=== PATIENT | female | born 1945 | race Caucasian/White ===

== ENCOUNTER → 2017-08-07 13:20 | Outpatient (CLI) | payer MEDICARE, SELFPAY ==
--- NOTE | 2017-08-07 13:28 | MR_ITS ---
MR cervical spine wo con HISTORY: Neck pain with bilateral arm numbness ITS.REASON: NECK PAIN ORDERING PHYSICIAN: Matheus Boggs MD PATIENT AGE: 72 years COMPARISON: 09/08/2015 TECHNIQUE: Standard multiplanar multiecho sequences are performed without contrast. 3-D MIP and myelographic images are also rendered and reviewed FINDINGS: The craniocervical junction has an unremarkable appearance. There is normal alignment. C2-C3, C3-C4, and C4-C5 have an unremarkable appearance. There is minimal bulging disc at C5-C6 with very slight decrease in the disc space. The disc is slightly eccentric toward the left. There is mild narrowing of the canal. No cord impingement C6-C7: Minimal bulging disc. C7-T1: Unremarkable. IMPRESSION: 1. Mild degenerative disc disease at C5-C6 with minimal disc bulge at C5-C6 and C6-7. 2. Otherwise negative MRI of the cervical spine with no significant change from the previous exam. No disc herniation or neural impingement apparent
--- NOTE | 2017-08-07 13:28 | MR_ITS ---
MR lumbar spine wo con, MR 3-d myelogram/MRCP HISTORY: Low back pain with bilateral sciatica. Low back pain worsening the last month with pain on left side with bilateral leg tingling ITS.REASON: LOW BACK PAIN WITH BILATERAL SCIATICA ORDERING PHYSICIAN: Matheus Boggs MD PATIENT AGE: 72 years COMPARISON: 12/17/2016 TECHNIQUE: Standard multiplanar multiecho sequences are performed without contrast. 3-D MIP and myelographic images are also rendered and reviewed FINDINGS: There is normal alignment. The spinal cord ends at the T12-L1 level. T11-T12: Slight decrease in the disc height. T12-L1: Unremarkable. L1-L2: Mild degenerative disc disease with minimal bulging disc. L2-L3: Unremarkable. L3-L4: Unremarkable aside from a small Schmorl's node along the superior endplate of L4. L4-5: Very minimal bulging disc. L5-S1: Minimal bulging disc. There is mild facet hypertrophic change at L5-S1 Left renal cysts once again noted. IMPRESSION: 1. Minimal lumbar spondylosis. Please see above for detailed description at each level. 2. No disc herniation or canal stenosis with no significant change compared to the previous exam
== END ==
PROVIDERS: Family Provider Family Medicine; PCP Family Medicine; Visit Provider Family Medicine
DX: M54.2 Cervicalgia (principal); M54.42 Lumbago with sciatica, left side; M54.41 Lumbago with sciatica, right side; M51.36 Other intervertebral disc degeneration, lumbar region; M46.96 Unspecified inflammatory spondylopathy, lumbar region
CPT/HCPCS: 72141; 72148; 76376; A9502

== ENCOUNTER → 2017-09-04 13:03 | Outpatient (POV) | payer MEDICARE, OTHER, SELFPAY | PROVIDERS: Visit Provider Neurological Surgery | DX: Z00.00 Encounter for general adult medical examination without abnormal findings (principal) ==

== ENCOUNTER → 2017-09-18 11:48 | Outpatient (CLI) | payer MEDICARE, OTHER, SELFPAY ==
--- NOTE | 2017-09-18 11:57 | XR_ITS ---
XR foot RT min 3V HISTORY: Foot pain ITS.REASON: LEFT 2ND TOE PAIN, HAMMER TOE ORDERING PHYSICIAN: Mary Merino DPM PATIENT AGE: 72 years COMPARISON: None FINDINGS: No fracture or dislocation. No lytic or blastic change. There is normal mineralization.. The joint spaces are well-preserved. No significant degenerative/arthritic changes. No erosive changes evident. Mild flexion deformity involves the second toe. There is minimal medial subluxation of the distal phalanx of the third toe. Normal alignment otherwise. IMPRESSION: 1. Mild flexion deformity of the second toe. 2. Minimal medial displacement of the distal phalanx of the third toe
--- NOTE | 2017-09-18 11:58 | XR_ITS ---
XR foot LT min 3V HISTORY: Foot pain ITS.REASON: LEFT 2ND TOE PAIN, HAMMERTOE ORDERING PHYSICIAN: Mary Merino DPM PATIENT AGE: 72 years COMPARISON: None FINDINGS: Weightbearing views are performed. There is normal alignment. Mild hypertrophic changes are present dorsally at the midfoot. There is hammertoe deformity of the second toe. No fracture or dislocation. Small sclerotic focus involving the mid aspect of the calcaneus and may be due to small bone island. IMPRESSION: Hammertoe deformity of the second toe. Mild degenerative changes of the midfoot
== END ==
PROVIDERS: Visit Provider Podiatrist
DX: M20.42 Other hammer toe(s) (acquired), left foot (principal); M79.675 Pain in left toe(s)
CPT/HCPCS: 73630

== ENCOUNTER → 2017-09-30 09:34 | Outpatient (POV) | payer MEDICARE, SELFPAY ==
[2017-09-30 09:42] VITALS: BP 164/80; PULSE 62; RESP 20; O2SAT 99; BMI 33.4
--- NOTE | 2017-09-30 11:16 | HMH.PMCON ---
Assessment and Plan (1) Bursitis Current visit: Yes Status: Chronic Category: Medical Code(s): M71.9 - Bursopathy, unspecified (2) Sacroiliitis Current visit: Yes Status: Chronic Category: Medical Code(s): M46.1 - Sacroiliitis, not elsewhere classified - Assessment and plan all Dx Assessment and Plan for all problems:: We will start with a left SI joint injection along with a left greater trochanteric bursa injection. I believe that this would be very helpful for the patient given her pain pattern. I will follow-up with the patient after her injection if she does not get good relief with this we may begin looking at her back pathology. We will also write an order for a physical therapy evaluation and home stretching program. I believe that the patient would have better outcomes if she did this after her injection. Patient has tried physical therapy before with minimal relief. patient is unable to take anti-inflammatories due to allergy. This note was dictated using voice recognition software and may contain errors or omissions HPI - Data of Consult Consult date: 09/30/17 Requesting Physician: Yas Casiano APRN Primary Care Provider: Matheus Boggs MD Family Provider: Matheus Boggs MD - Consult Narrative Reason for consult: Left lower back pain radiating down her left hip and left leg History of present illness: Ms. Walker is a 72 year old female who presents today for a consult in regards to chronic pain in her left lower back radiating down her left hip and left leg. Patient states that it was gradual in onset and started 10-15 years ago. Patient states that sitting increases the pain while laying down decreases her pain. Patient has tried and failed physical therapy in the past patient is allergic to NSAIDs and is unable to take anti-inflammatories. Patient does take Tylenol to help relieve some of her pain. Patient rates her pain a 4 out of 10 today. Patient states she has numbness and tingling that go all the way to her left toes at times. Patient has had injections in her knees in the past for arthritis and has done very well with this. Patient is interested in interventional therapies. CC: Yas Casiano APRN [facility] History I have reviewed the patient's past medical history: Yes Medical History: Reports:: Asthma, Gastroesophageal Reflux Disease(GERD), Hypertension Denies:: Anxiety, Depression, Diabetes Mellitus Type 1, Diabetes Mellitus Type 2, Hyperlipidemia Other Medical History: Reports: Arthritis, Hypothyroidism, Sinus Problems Laterality Cases: Bilateral: Arthroscopy Knee Other Surgeries: Yes: Appendectomy, , Hernia Repair, Hysterectomy-Total, Sinus Surgery, Tubal Ligation - *Social History Educational Level: Completed High School Smoking Status: Never smoker Alcohol Intake: never Occupational Status: retired - Psychiatric History Expresses thoughts of harming self/others: None Suicide Plan Description: No Plan Pschychiatric History:: Denies:: Anxiety, Depression *Family Hx:: Cancer, Diabetes, Hyperlipidemia, Hypertension, Thyroid Disorder Review of Systems - Review of Systems ROS General: no recent weight change, no fever, no sleep disturbances Respiratory: no cough, no shortness of air, no recurring pulmonary infections Cardiovascular/Peripheral Vascular: No chest pain, No palpitations, no edema, no shortness of breath. Gastrointestinal: no incontinence, normal bowel movements reported Genitourinary: no incontinence Musculoskeletal: SI joint pain, low back pain, knee pain Psychiatric: normal mood/ affect Neurological: [denies weakness in extremities], [denies balance issues] Meds Home Medications Medication Instructions Recorded Confirmed Type acebutolol 200 mg capsule 200 mg PO 90 Days cap 09/18/17 History acetaminophen 500 mg tablet 500 mg PO Q4-6H PRN 09/18/17 History albuterol sulfate HFA 90 90 mcg INHALATION Q6H
--- NOTE | 2017-09-30 11:19 | P.CONS_ITS ---
Assessment and Plan (1) Bursitis Current visit: Yes Status: Chronic Category: Medical Code(s): M71.9 - Bursopathy, unspecified (2) Sacroiliitis Current visit: Yes Status: Chronic Category: Medical Code(s): M46.1 - Sacroiliitis, not elsewhere classified - Assessment and plan all Dx Assessment and Plan for all problems:: We will start with a left SI joint injection along with a left greater trochanteric bursa injection. I believe that this would be very helpful for the patient given her pain pattern. I will follow-up with the patient after her injection if she does not get good relief with this we may begin looking at her back pathology. We will also write an order for a physical therapy evaluation and home stretching program. I believe that the patient would have better outcomes if she did this after her injection. Patient has tried physical therapy before with minimal relief. patient is unable to take anti-inflammatories due to allergy. This note was dictated using voice recognition software and may contain errors or omissions HPI - Data of Consult Consult date: 09/30/17 Requesting Physician: Yas Casiano APRN Primary Care Provider: Matheus Boggs MD Family Provider: Matheus Boggs MD - Consult Narrative Reason for consult: Left lower back pain radiating down her left hip and left leg History of present illness: Ms. Walker is a 72 year old female who presents today for a consult in regards to chronic pain in her left lower back radiating down her left hip and left leg. Patient states that it was gradual in onset and started 10-15 years ago. Patient states that sitting increases the pain while laying down decreases her pain. Patient has tried and failed physical therapy in the past patient is allergic to NSAIDs and is unable to take anti-inflammatories. Patient does take Tylenol to help relieve some of her pain. Patient rates her pain a 4 out of 10 today. Patient states she has numbness and tingling that go all the way to her left toes at times. Patient has had injections in her knees in the past for arthritis and has done very well with this. Patient is interested in interventional therapies. CC: Yas Casiano APRN [facility] History I have reviewed the patient's past medical history: Yes Medical History: Reports:: Asthma, Gastroesophageal Reflux Disease(GERD), Hypertension Denies:: Anxiety, Depression, Diabetes Mellitus Type 1, Diabetes Mellitus Type 2, Hyperlipidemia Other Medical History: Reports: Arthritis, Hypothyroidism, Sinus Problems Laterality Cases: Bilateral: Arthroscopy Knee Other Surgeries: Yes: Appendectomy, , Hernia Repair, Hysterectomy-Total , Sinus Surgery, Tubal Ligation - *Social History Educational Level: Completed High School Smoking Status: Never smoker Alcohol Intake: never Occupational Status: retired - Psychiatric History Expresses thoughts of harming self/others: None Suicide Plan Description: No Plan Pschychiatric History:: Denies:: Anxiety, Depression *Family Hx:: Cancer, Diabetes, Hyperlipidemia, Hypertension, Thyroid Disorder Review of Systems - Review of Systems ROS General: no recent weight change, no fever, no sleep disturbances Respiratory: no cough, no shortness of air, no recurring pulmonary infections Cardiovascular/Peripheral Vascular: No chest pain, No palpitations, no edema, no shortness of breath. Gastrointestinal: no incontinence, normal bowel movements reported Genitourinary: no incontinence Musculoskeletal: SI joint pain, low back pa
== END ==
PROVIDERS: Family Provider Family Medicine; PCP Family Medicine; Visit Provider Clinical Nurse Specialist Family Health
DX: M71.9 Bursopathy, unspecified (principal); M46.1 Sacroiliitis, not elsewhere classified
CPT/HCPCS: 99202

== ENCOUNTER 2017-10-16 12:14 | Day surgery (SDC) | payer MEDICARE, SELFPAY ==
[2017-10-16 12:25] VITALS: BP 141/75; PULSE 64; RESP 18; TEMP 36.8; O2SAT 97; BMI 33.8
[2017-10-16 12:52] VITALS: BP 172/95; PULSE 88; RESP 18
[2017-10-16 12:53] VITALS: BP 186/86; PULSE 68; RESP 20
--- NOTE | 2017-10-16 12:56 | P.PCN_ITS ---
- Procedure Date: 10/16/17 Time: 12:54 Anesthesiologist:: Antonino Gonzalez MD Complications:: None Pre-procedure Diagnosis:: Sacroiliitis and trochanteric bursitis Post-procedure Diagnosis:: Same Indications for Procedure:: This patient is a pleasant 72-year-old white female who we are treating for left -sided hip pain. She is tender over left SI joint and left trochanteric bursa. She does have a positive Danyel's test. She has tried and failed physical therapy in the past. She is allergic to NSAIDs. She presents today for a left SI joint injection left trochanteric bursa injection under fluoroscopy. Procedure Details:: Left SI joint injection under fluoroscopy Informed consent was obtained and the risks and benefits of the procedure was going to the patient. Patient was taken to the procedure room. Patient was placed prone on the procedure table. The left hip was prepped using ChloraPrep. The skin and subcutaneous tissues were anesthetized using lidocaine. I placed a 22-gauge spinal needle into the inferior aspect of the left SI joint. Needle placement was confirmed with dye. After this we injected 5 mL bupivacaine 0.25% and Depo-Medrol 40 mg into the left SI joint. The patient tolerated the procedure well with no complication. Left trochanteric bursa injection under fluoroscopy Informed consent was obtained and the risk and benefits of the procedure was explained to the patient. The patient was taken to procedure room and placed prone on the procedure table. The left hip was prepped using ChloraPrep. The skin and subcutaneous tissues were anesthetized using lidocaine. I placed a 22- gauge spinal needle under fluoroscopic guidance and advanced until it contacted the left greater trochanter. Needle placement was confirmed with dye. After this we injected 5 mL bupivacaine 0.25% and Depo-Medrol 40 mg. Patient tolerated the procedure well with no complications. Plan and Disposition:: We will follow-up with her in 2 weeks. We will reevaluate her symptoms at that time.
[2017-10-16 13:08] VITALS: BP 153/71; PULSE 58; RESP 18; O2SAT 96
== END 2017-10-16 13:00 | disposition home or self-care (01) ==
LOC: SC.PAINP 12:16
PROVIDERS: Family Provider Family Medicine; PCP Family Medicine; Visit Provider Anesthesiology
DX: M46.1 Sacroiliitis, not elsewhere classified (principal); M70.62 Trochanteric bursitis, left hip
CPT/HCPCS: 20610; 27096; G0260; J1030; Q9966

== ENCOUNTER → 2017-11-11 10:52 | Outpatient (POV) | payer MEDICARE, SELFPAY ==
[2017-11-11 11:30] VITALS: BP 146/63; PULSE 54; RESP 18; TEMP 36.7; O2SAT 97; BMI 34.0
--- NOTE | 2017-11-11 12:25 | HMH.PAINSOAP ---
[facility] Pain Management SOAP Note Subjective:: Patient is a pleasant 72-year-old white female who presents today for follow-up after left SI and left trochanteric bursa injection. Patient states she has a von percent relief. Patient still has some pain however it she is doing much better and is much more functional. Patient is interested in working on her cervical neck pain. Patient does have a C5-C6 disc bulge. Patient is having radiating pain from her neck into bilateral arms. Rates her pain a 6 out of 10. Patient also is having carpal tunnel pain. Patient is interested in injective therapies and possibly neuromodulation in the future. ROS General: no recent weight change, no fever, no sleep disturbances Respiratory: no cough, no shortness of air, no recurring pulmonary infections Cardiovascular/Peripheral Vascular: No chest pain, No palpitations, no edema, no shortness of breath. Gastrointestinal: no incontinence, normal bowel movements reported Genitourinary: no incontinence Musculoskeletal: Neck pain, bilateral arm pain, low back pain, left SI pain, left hip pain Psychiatric: normal mood/ affect, Neurological: [denies weakness in extremities], [denies balance issues] Objective:: Physical Exam General: Alert and oriented x3, no acute distress, pleasant and cooperative, [on room air] Lungs: Resps E/U, Symmetrical chest expansion, Eyes: PERRL Musculoskeletal: Flexion and extension of cervical spine somewhat guarded secondary to pain, deep tendon reflexes normal, strength in upper and lower extremities [5/5], [abnormal gait noted] Neurological: speech clear, convention worker equal, no gross sensory deficits Assessment:: Degenerative disc disease of the cervical spine, cervical radiculopathy, sacroiliitis Plan:: We will schedule physical therapy for the patient. She will do this in [place]. Patient is going to physical therapy for neck and left SI pain. We will also send the patient to Dr. Patel for carpal tunnel evaluation. We will also schedule a C5-C6 cervical epidural steroid injection. Patient is unable to take anti-inflammatories. And she is allergic to most medications for pain. Patient did well on her last injection I believe that a cervical epidural may give her some benefit as well. I will follow-up with this patient after her injection. Patient also interested in possible neuromodulation. This note was dictated using voice recognition software and may contain errors or omissions
--- NOTE | 2017-11-11 12:31 | P.CONS_ITS ---
[facility] Pain Management SOAP Note Subjective:: Patient is a pleasant 72-year-old white female who presents today for follow-up after left SI and left trochanteric bursa injection. Patient states she has a von percent relief. Patient still has some pain however it she is doing much better and is much more functional. Patient is interested in working on her cervical neck pain. Patient does have a C5-C6 disc bulge. Patient is having radiating pain from her neck into bilateral arms. Rates her pain a 6 out of 10. Patient also is having carpal tunnel pain. Patient is interested in injective therapies and possibly neuromodulation in the future. ROS General: no recent weight change, no fever, no sleep disturbances Respiratory: no cough, no shortness of air, no recurring pulmonary infections Cardiovascular/Peripheral Vascular: No chest pain, No palpitations, no edema, no shortness of breath. Gastrointestinal: no incontinence, normal bowel movements reported Genitourinary: no incontinence Musculoskeletal: Neck pain, bilateral arm pain, low back pain, left SI pain, left hip pain Psychiatric: normal mood/ affect, Neurological: [denies weakness in extremities], [denies balance issues] Objective:: Physical Exam General: Alert and oriented x3, no acute distress, pleasant and cooperative, [ on room air] Lungs: Resps E/U, Symmetrical chest expansion, Eyes: PERRL Musculoskeletal: Flexion and extension of cervical spine somewhat guarded secondary to pain, deep tendon reflexes normal, strength in upper and lower extremities [5/5], [abnormal gait noted] Neurological: speech clear, audit clerk equal, no gross sensory deficits Assessment:: Degenerative disc disease of the cervical spine, cervical radiculopathy, sacroiliitis Plan:: We will schedule physical therapy for the patient. She will do this in [place]. Patient is going to physical therapy for neck and left SI pain. We will also send the patient to Dr. Ptael for carpal tunnel evaluation. We will also schedule a C5-C6 cervical epidural steroid injection. Patient is unable to take anti-inflammatories. And she is allergic to most medications for pain. Patient did well on her last injection I believe that a cervical epidural may give her some benefit as well. I will follow-up with this patient after her injection. Patient also interested in possible neuromodulation. This note was dictated using voice recognition software and may contain errors or omissions
== END ==
PROVIDERS: Family Provider Family Medicine; PCP Family Medicine; Visit Provider Clinical Nurse Specialist Family Health
DX: M46.1 Sacroiliitis, not elsewhere classified (principal); M54.12 Radiculopathy, cervical region
CPT/HCPCS: 99212

== ENCOUNTER → 2017-12-08 15:04 | Outpatient (POV) | payer MEDICARE, SELFPAY ==
[2017-12-08 15:22] VITALS: BP 126/94; PULSE 63; O2SAT 98; BMI 34.9
--- NOTE | 2017-12-08 16:34 | P.CONS_ITS ---
[facility] Pain Management SOAP Note Subjective:: Patient is a pleasant 72-year-old white female who presents today for follow- up. Patient was recently going to be scheduled for a C5 C7 cervical epidural steroid injection but since last visit she had an increase in her left SI and left trochanteric bursa pain. Patient rates her pain is 7 out of 10 today. Patient has had good relief with SI joint and bursa injections in the past. Patient is interested in repeating this. Patient's tried and failed physical therapy, anti-inflammatory medications, stretching therapies. ROS General: no recent weight change, no fever, no sleep disturbances Respiratory: no cough, no shortness of air, no recurring pulmonary infections Cardiovascular/Peripheral Vascular: No chest pain, No palpitations, no edema, no shortness of breath. Gastrointestinal: no incontinence, normal bowel movements reported Genitourinary: no incontinence Musculoskeletal: Left SI joint pain, left trochanteric bursa tenderness Psychiatric: normal mood/ affect Neurological: [denies weakness in extremities], [denies balance issues] Objective:: Physical Exam General: Alert and oriented x3, no acute distress, pleasant and cooperative, [ on room air] Lungs: Resps E/U, Symmetrical chest expansion, Eyes: PERRL Musculoskeletal: Flexion and extension of lumbar spine somewhat guarded secondary to pain, deep tendon reflexes normal, strength in upper and lower extremities [5/5], slightly antalgic gait noted, positive Danyel's test on the left side, extreme point tenderness over left SI joint and left greater trochanteric bursa Neurological: speech clear, gynecological assistant equal, no gross sensory deficits Assessment:: Sacroiliitis, bursitis Plan:: We will schedule a left SI joint injection along with a left greater trochanteric bursa injection. Patient has had good relief with this in the past. Patient is on anti-inflammatories. Patient has tried and failed medications, physical therapy. Patient not on any anticoagulation. I will follow-up with this patient after her injections. We will then concentrated cervical neck pain. This note was dictated using voice recognition software and may contain errors or omissions
== END ==
PROVIDERS: Family Provider Family Medicine; PCP Family Medicine; Visit Provider Clinical Nurse Specialist Family Health
DX: M70.62 Trochanteric bursitis, left hip (principal)
CPT/HCPCS: 99212

== ENCOUNTER → 2018-01-26 11:11 | Outpatient (POV) | payer MEDICARE, SELFPAY ==
[2018-01-26 11:26] VITALS: BP 158/69; PULSE 57; RESP 18; O2SAT 99; BMI 33.4
--- NOTE | 2018-01-26 12:00 | P.CONS_ITS ---
[facility] Pain Management SOAP Note Subjective:: Patient is a pleasant 72-year-old white female who presents today for follow-up after left SI joint injection and left trochanteric bursa injection. Patient states she is doing very well she rates her pain 80% relieved. Patient did have a flareup in her pain after she was moving potting soil. Patient is doing well overall. Patient does have some neck pain however she wants to wait until the fall to start discussing this. Patient has been is in the process of getting a neurostimulator. Patient would like to wait until he is finished with this process for her to return and be assessed for neck pain. Patient rates her pain a 4 out of 10 today. Mostly in her left hip. ROS General: no recent weight change, no fever, no sleep disturbances Respiratory: no cough, no shortness of air, no recurring pulmonary infections Cardiovascular/Peripheral Vascular: No chest pain, No palpitations, no edema, no shortness of breath. Gastrointestinal: no incontinence, normal bowel movements reported Genitourinary: no incontinence Musculoskeletal: Left hip pain, left SI joint pain Psychiatric: normal mood/ affect Neurological: [denies weakness in extremities], [denies balance issues] Objective:: Physical Exam General: Alert and oriented x3, no acute distress, pleasant and cooperative, [ on room air] Lungs: Resps E/U, Symmetrical chest expansion, Eyes: PERRL Musculoskeletal: Flexion and extension of lumbar spine somewhat guarded secondary to pain, deep tendon reflexes normal, strength in upper and lower extremities [5/5], antalgic gait noted Neurological: speech clear, acquisition consultant equal, no gross sensory deficits Assessment:: Sacroiliitis, trochanteric bursitis, neck pain Plan:: We will follow-up with this patient in 3 months and reassess her symptoms at that time. Patient wants to wait until fall to discuss her neck pain. Patient' s been instructed to call the office if she has any issues prior to next appointment. This note was dictated using voice recognition software and may contain errors or omissions
== END ==
PROVIDERS: Family Provider Family Medicine; PCP Family Medicine; Visit Provider Clinical Nurse Specialist Family Health
DX: M46.1 Sacroiliitis, not elsewhere classified (principal)
CPT/HCPCS: 99212

== ENCOUNTER → 2018-04-21 09:58 | Outpatient (POV) | payer MEDICARE, SELFPAY ==
[2018-04-21 10:35] VITALS: BP 155/62; PULSE 55; RESP 18; O2SAT 98; BMI 34.5
--- NOTE | 2018-04-21 11:00 | HMH.PAINSOAP ---
[facility] Pain Management SOAP Note Subjective:: Patient is a pleasant 72-year-old white female who presents today for follow-up. Patient was last seen after her left SI joint injection left greater trochanteric bursa injection. Patient had 80% relief of her symptoms for 3 months. Patient states that her pain is beginning to return after overdoing it in the garden. Patient is interested in having another of these injections given the efficacy the last one. Patient is continuing a home stretching program and is not on any blood thinners patient rates her pain a 6 out of 10 today. ROS General: no recent weight change, no fever, no sleep disturbances Respiratory: no cough, no shortness of air, no recurring pulmonary infections Cardiovascular/Peripheral Vascular: No chest pain, No palpitations, no edema, no shortness of breath. Gastrointestinal: no incontinence, normal bowel movements reported Genitourinary: no incontinence Musculoskeletal: Left hip pain, left joint pain Psychiatric: normal mood/ affect Neurological: [denies weakness in extremities], [denies balance issues] Objective:: Physical Exam General: Alert and oriented x3, no acute distress, pleasant and cooperative, [on room air] Lungs: Resps E/U, Symmetrical chest expansion, Eyes: PERRL Musculoskeletal: Flexion and extension of lumbar spine somewhat guarded secondary to pain, deep tendon reflexes normal, strength in upper and lower extremities [5/5], slightly antalgic gait noted, positive Danyel's test on the left side, extreme point tenderness over left greater trochanteric bursa Neurological: speech clear, mill roll rewinder equal, no gross sensory deficits Assessment:: Sacroiliitis, bursitis Plan:: We will schedule left SI joint injection and left greater trochanteric bursa injection. I will follow-up with the patient after her injection. This note was dictated using voice recognition software and may contain errors or omissions
--- NOTE | 2018-04-21 11:03 | P.CONS_ITS ---
[facility] Pain Management SOAP Note Subjective:: Patient is a pleasant 72-year-old white female who presents today for follow-up. Patient was last seen after her left SI joint injection left greater trochanteric bursa injection. Patient had 80% relief of her symptoms for 3 months. Patient states that her pain is beginning to return after overdoing it in the garden. Patient is interested in having another of these injections given the efficacy the last one. Patient is continuing a home stretching program and is not on any blood thinners patient rates her pain a 6 out of 10 today. ROS General: no recent weight change, no fever, no sleep disturbances Respiratory: no cough, no shortness of air, no recurring pulmonary infections Cardiovascular/Peripheral Vascular: No chest pain, No palpitations, no edema, no shortness of breath. Gastrointestinal: no incontinence, normal bowel movements reported Genitourinary: no incontinence Musculoskeletal: Left hip pain, left joint pain Psychiatric: normal mood/ affect Neurological: [denies weakness in extremities], [denies balance issues] Objective:: Physical Exam General: Alert and oriented x3, no acute distress, pleasant and cooperative, [on room air] Lungs: Resps E/U, Symmetrical chest expansion, Eyes: PERRL Musculoskeletal: Flexion and extension of lumbar spine somewhat guarded secondary to pain, deep tendon reflexes normal, strength in upper and lower extremities [5/5], slightly antalgic gait noted, positive Danyel's test on the left side, extreme point tenderness over left greater trochanteric bursa Neurological: speech clear, gas station manager equal, no gross sensory deficits Assessment:: Sacroiliitis, bursitis Plan:: We will schedule left SI joint injection and left greater trochanteric bursa injection. I will follow-up with the patient after her injection. This note was dictated using voice recognition software and may contain errors or omissions
== END ==
PROVIDERS: Family Provider Family Medicine; PCP Family Medicine; Visit Provider Clinical Nurse Specialist Family Health
DX: M46.1 Sacroiliitis, not elsewhere classified (principal); M71.9 Bursopathy, unspecified
CPT/HCPCS: 99213

== ENCOUNTER → 2018-05-26 09:05 | Outpatient (POV) | payer MEDICARE, SELFPAY ==
[2018-05-26 09:22] VITALS: BP 172/67; PULSE 72; RESP 18; O2SAT 98; BMI 34.0
--- NOTE | 2018-05-26 09:42 | HMH.PAINSOAP ---
[facility] Pain Management SOAP Note Subjective:: Patient is a pleasant 72-year-old white female who presents today for follow-up for left SI joint injection left greater trochanteric bursa injection. Patient states that it has alleviated her pain symptoms. Patient is doing well at this time. Patient would like to follow-up on an as-needed basis. ROS General: no recent weight change, no fever, no sleep disturbances Respiratory: no cough, no shortness of air, no recurring pulmonary infections Cardiovascular/Peripheral Vascular: No chest pain, No palpitations, no edema, no shortness of breath. Gastrointestinal: no incontinence, normal bowel movements reported Genitourinary: no incontinence Musculoskeletal: Left hip pain at times Psychiatric: normal mood/ affect Neurological: [denies weakness in extremities], [denies balance issues] Objective:: Physical Exam General: Alert and oriented x3, no acute distress, pleasant and cooperative, [on room air] Lungs: Resps E/U, Symmetrical chest expansion, Eyes: PERRL Musculoskeletal: Flexion and extension of lumbar spine somewhat guarded secondary to pain, deep tendon reflexes normal, strength in upper and lower extremities [5/5], slightly antalgic gait noted Neurological: speech clear, chief steward/stewardess equal, no gross sensory deficits Assessment:: Sacroiliitis, trochanteric bursitis Plan:: We will follow-up with her on an as-needed basis. Patient's been encouraged to call the office if she has any issues. This note was dictated using voice recognition software and may contain errors or omissions
== END ==
PROVIDERS: PCP Family Medicine; Visit Provider Clinical Nurse Specialist Family Health
DX: M46.1 Sacroiliitis, not elsewhere classified (principal); M70.60 Trochanteric bursitis, unspecified hip
CPT/HCPCS: 99213

== ENCOUNTER → 2018-08-03 16:59 | Outpatient (CLI) | payer MEDICARE, SELFPAY | PROVIDERS: Visit Provider Podiatrist | DX: B35.1 Tinea unguium (principal) | CPT/HCPCS: 87102; 87206; 87220 ==

== ENCOUNTER → 2018-08-25 09:44 | Outpatient (POV) | payer MEDICARE, SELFPAY ==
[2018-08-25 10:07] VITALS: BP 153/59; PULSE 55; RESP 18; O2SAT 99; BMI 33.6
--- NOTE | 2018-08-25 11:25 | HMH.PAINSOAP ---
[facility] Pain Management SOAP Note Subjective:: Patient is a pleasant 73-year-old white female who presents today for follow-up. Patient has been receiving left SI joint injections for quite some time and has been doing well with them and being much more functional however her SI joint pain has returned today. Patient would like to move forward with another injection. Patient also does not have any recent lumbar imaging I do believe it would be beneficial to have an MRI to determine any additional pathology. Patient rates her pain a 6 out of 10 today. ROS General: no recent weight change, no fever, no sleep disturbances Respiratory: no cough, no shortness of air, no recurring pulmonary infections Cardiovascular/Peripheral Vascular: No chest pain, No palpitations, no edema, no shortness of breath. Gastrointestinal: no incontinence, normal bowel movements reported Genitourinary: no incontinence Musculoskeletal: Back pain, left SI joint pain Psychiatric: normal mood/ affect Neurological: [denies weakness in extremities], [denies balance issues] Objective:: Physical Exam General: Alert and oriented x3, no acute distress, pleasant and cooperative, [on room air] Lungs: Resps E/U, Symmetrical chest expansion, Eyes: PERRL Musculoskeletal: Flexion and extension of lumbar spine somewhat guarded secondary to pain, deep tendon reflexes normal, strength in upper and lower extremities [5/5], [abnormal gait noted] positive Judson's test on the left side, positive [place]'s test on the left side, positive SI joint compression test. Neurological: speech clear, supervisor drilling and shooting equal, no gross sensory deficits Assessment:: Sacroiliitis, back pain Plan:: We will send the patient for an updated MRI. We will also schedule her for left SI joint injection given the efficacy of this in the past. We will also start her on tramadol 50 mg [address] Gonzalez has reviewed this note and agrees with this plan of care. This note was dictated using voice recognition software and may contain errors or omissions
--- NOTE | 2018-08-25 11:28 | P.CONS_ITS ---
[facility] Pain Management SOAP Note Subjective:: Patient is a pleasant 73-year-old white female who presents today for follow-up. Patient has been receiving left SI joint injections for quite some time and has been doing well with them and being much more functional however her SI joint pain has returned today. Patient would like to move forward with another injection. Patient also does not have any recent lumbar imaging I do believe it would be beneficial to have an MRI to determine any additional pathology. Patient rates her pain a 6 out of 10 today. ROS General: no recent weight change, no fever, no sleep disturbances Respiratory: no cough, no shortness of air, no recurring pulmonary infections Cardiovascular/Peripheral Vascular: No chest pain, No palpitations, no edema, no shortness of breath. Gastrointestinal: no incontinence, normal bowel movements reported Genitourinary: no incontinence Musculoskeletal: Back pain, left SI joint pain Psychiatric: normal mood/ affect Neurological: [denies weakness in extremities], [denies balance issues] Objective:: Physical Exam General: Alert and oriented x3, no acute distress, pleasant and cooperative, [on room air] Lungs: Resps E/U, Symmetrical chest expansion, Eyes: PERRL Musculoskeletal: Flexion and extension of lumbar spine somewhat guarded secondary to pain, deep tendon reflexes normal, strength in upper and lower extremities [5/5], [abnormal gait noted] positive Judson's test on the left side, positive [place]'s test on the left side, positive SI joint compression test. Neurological: speech clear, talent management manager equal, no gross sensory deficits Assessment:: Sacroiliitis, back pain Plan:: We will send the patient for an updated MRI. We will also schedule her for left SI joint injection given the efficacy of this in the past. We will also start her on tramadol 50 mg [address] Gonzalez has reviewed this note and agrees with this plan of care. This note was dictated using voice recognition software and may contain errors or omissions
== END ==
PROVIDERS: PCP Family Medicine; Visit Provider Clinical Nurse Specialist Family Health
DX: M46.1 Sacroiliitis, not elsewhere classified (principal); M54.9 Dorsalgia, unspecified
CPT/HCPCS: 99213

== ENCOUNTER → 2018-08-27 15:05 | Outpatient (CLI) | payer MEDICARE, SELFPAY ==
--- NOTE | 2018-08-27 15:08 | MR_ITS ---
MR lumbar spine wo con, MR 3-d myelogram/MRCP HISTORY: Having shots in back. LT sided LBP. Intermittent LT leg pain, numbness, and tingling X YRS. No HX Back surgeries. ITS.REASON: WORSENING BACK PAIN ORDERING PHYSICIAN: Yas Casiano PATIENT AGE: 73 years Comparison: MRI 08-07-17 TECHNIQUE: Standard multiplanar multiecho sequences are performed without contrast. 3-D MIP and myelographic images are also rendered and reviewed FINDINGS: There is normal alignment. Spinal cord ends at the T12-L1 level. L1-L2: Mild degenerative disc disease. L2-L3, L3-L4, and L4-5 unremarkable appearance. Small Schmorl's node along the superior endplate of L4 L5-S1: Minimal bulging disc along with mild facet hypertrophic change. No disc herniation or canal stenosis. Incidental note made of multiple left parapelvic renal cysts IMPRESSION: Mild degenerative changes. Overall no significant change from 08/07/2017. No disc herniation or canal stenosis
== END ==
PROVIDERS: PCP Family Medicine; Visit Provider Clinical Nurse Specialist Family Health
DX: M54.5 Low back pain (principal)
CPT/HCPCS: 72148; 76376

== ENCOUNTER → 2018-09-08 11:35 | Outpatient (POV) | payer MEDICARE, SELFPAY ==
[2018-09-08 12:23] VITALS: BP 111/69; PULSE 56; RESP 18; O2SAT 98; BMI 33.6
--- NOTE | 2018-09-08 12:28 | P.CONS_ITS ---
[facility] Pain Management SOAP Note Subjective:: Is a pleasant 73-year-old white female who presents today for follow-up after SI joint injections. She is doing very well at this time she has had a recent MRI which was mild in nature. Patient stating otherwise she is doing well she rates her pain a 4 out of 10. She would like to follow-up as needed ROS General: no recent weight change, no fever, no sleep disturbances Respiratory: no cough, no shortness of air, no recurring pulmonary infections Cardiovascular/Peripheral Vascular: No chest pain, No palpitations, no edema, no shortness of breath. Gastrointestinal: no incontinence, normal bowel movements reported Genitourinary: no incontinence Musculoskeletal: Back pain, SI joint pain Psychiatric: normal mood/ affect Neurological: [denies weakness in extremities], [denies balance issues] Objective:: Physical Exam General: Alert and oriented x3, no acute distress, pleasant and cooperative, [on room air] Lungs: Resps E/U, Symmetrical chest expansion, Eyes: PERRL Musculoskeletal: Flexion and extension of lumbar spine somewhat guarded secondary to pain, deep tendon reflexes normal, strength in upper and lower extremities [5/5], slightly antalgic gait noted Neurological: speech clear, temporary administrative assistant equal, no gross sensory deficits Assessment:: Degenerative disc disease lumbar spine, sacroiliitis Plan:: We will follow-up with the patient on an as-needed basis she is can call our office when she is in need of an injection Dr. Gonzalez has reviewed this note and agrees with this plan of care. This note was dictated using voice recognition software and may contain errors or omissions
== END ==
PROVIDERS: PCP Family Medicine; Visit Provider Clinical Nurse Specialist Family Health
DX: M51.36 Other intervertebral disc degeneration, lumbar region (principal); M46.1 Sacroiliitis, not elsewhere classified
CPT/HCPCS: 99213

== ENCOUNTER → 2019-02-02 09:32 | Outpatient (CLI) | payer MEDICARE, SELFPAY ==
[2019-02-02 10:24] LABS: Basophils % 0.3 % (0.1-2.0); Eosinophils # 0.1 K/mm3 (0.0-0.4); Eosinophils % 1.9 % (0.1-12.0); Hemoglobin 12.8 g/dL (12.2-16.2); Lymphocytes # 1.5 K/mm3 (0.7-4.5); Lymphocytes % 25.1 % (10-50); Mean Corpuscular HGB Conc 31.2 g/dL (31.8-35.4); Mean Corpuscular Hemoglobin 28.2 pg (27.0-31.2); Mean Corpuscular Volume 90.4 fl (81-99); Mean Platelet Volume 7.3 fl (7.4-10.4); Monocytes # 0.4 K/mm3 (0.1-1.0); Monocytes % 7.2 % (1.7-9.3); Neutrophils # 3.9 K/mm3 (1.8-7.8); Neutrophils % 65.5 % (37.0-80.0); Platelet Count 224 K/mm3 (142-424); Red Blood Count 4.54 M/mm3 (4.20-5.40); White Blood Count 5.9 K/mm3 (4.8-10.8)
[2019-02-02 12:36] LABS: Ferritin 266 ng/mL (8-388); Free T4 (Free Thyroxine) 1.32 ng/dl (0.76-1.46); Thyroid Stimulating Hormone 0.21 uIU/ml (0.358-3.740)
[2019-02-03 08:14] LABS: Iron 119 ug/dL (27-139); UIBC 202 ug/dL (118-369)
[2019-02-04 20:03] LABS: Triiodothyronine (T3) Total 87 ng/dL (71-180)
[2019-02-04 20:04] LABS: Iron Saturation 37 % (15-55); Vitamin B12 365 pg/mL (232-1245); Vitamin D 25 Hydroxy 35.6 ng/mL (30.0-100.0)
[2019-02-05 10:31] LABS: Triiodothyronine (T3) Reverse 28.8 ng/dL (9.2-24.1)
== END ==
PROVIDERS: Visit Provider Internal Medicine Endocrinology, Diabetes & Metabolism
DX: D53.9 Nutritional anemia, unspecified (principal); D50.0 Iron deficiency anemia secondary to blood loss (chronic); E05.90 Thyrotoxicosis, unspecified without thyrotoxic crisis or storm; D51.0 Vitamin B12 deficiency anemia due to intrinsic factor deficiency; E55.9 Vitamin D deficiency, unspecified; E27.0 Other adrenocortical overactivity
CPT/HCPCS: 36415; 82533; 82607; 82652; 82728; 83540; 83550; 84439; 84443; 84480; 84482; 85025

== ENCOUNTER → 2019-08-12 09:56 | Outpatient (CLI) | payer MEDICARE, SELFPAY ==
[2019-08-12 10:41] LABS: Basophils % 0.6 % (0.1-2.0); Eosinophils # 0.1 K/mm3 (0.0-0.4); Eosinophils % 2.8 % (0.1-12.0); Hemoglobin 12.9 g/dL (12.2-16.2); Lymphocytes # 1.5 K/mm3 (0.7-4.5); Lymphocytes % 30.2 % (10-50); Mean Corpuscular Hemoglobin 30.5 pg (27.0-31.2); Mean Corpuscular Volume 92.2 fl (81-99); Monocytes # 0.4 K/mm3 (0.1-1.0); Neutrophils # 2.8 K/mm3 (1.8-7.8); Neutrophils % 58.4 % (37.0-80.0); Platelet Count 297 K/mm3 (142-424); Red Blood Count 4.22 M/mm3 (4.20-5.40); Red Cell Distribution Width 12.9 % (11.5-17.5); White Blood Count 4.9 K/mm3 (4.8-10.8)
[2019-08-12 10:49] LABS: Hemoglobin A1C 6.3 % (0.0-7.0)
[2019-08-12 11:11] LABS: Cholesterol 200 mg/dL (140-200); Free T4 (Free Thyroxine) 1.35 ng/dl (0.76-1.46); HDL Cholesterol 48 mg/dL (29-89); Thyroid Stimulating Hormone 0.04 uIU/ml (0.358-3.740); Triglycerides 83 mg/dL (30-200)
[2019-08-14 09:27] LABS: Triiodothyronine (T3) Total 111 ng/dL (71-180); Vitamin B12 403 pg/mL (232-1245); Vitamin D 25 Hydroxy 32.5 ng/mL (30.0-100.0)
[2019-08-18 10:44] LABS: Triiodothyronine (T3) Reverse 21.4 ng/dL (9.2-24.1)
== END ==
PROVIDERS: Visit Provider Internal Medicine Endocrinology, Diabetes & Metabolism
DX: E78.5 Hyperlipidemia, unspecified (principal); E27.0 Other adrenocortical overactivity; E05.90 Thyrotoxicosis, unspecified without thyrotoxic crisis or storm; E89.0 Postprocedural hypothyroidism; D51.0 Vitamin B12 deficiency anemia due to intrinsic factor deficiency; D53.9 Nutritional anemia, unspecified; D50.0 Iron deficiency anemia secondary to blood loss (chronic); E11.65 Type 2 diabetes mellitus with hyperglycemia; E55.9 Vitamin D deficiency, unspecified
CPT/HCPCS: 36415; 82465; 82533; 82607; 82652; 83036; 83718; 83722; 84439; 84443; 84478; 84480; 84482; 85025

== ENCOUNTER → 2019-12-02 12:41 | Outpatient (CLI) | payer MEDICARE, SELFPAY ==
--- NOTE | 2019-12-02 12:45 | MM_ITS ---
PROCEDURE: MM DIG SCREENING MAMM BI W/CAD Digital Breast Tomosynthesis Included CLINICAL INDICATION: SCREENING There is no personal or family history of breast cancer. COMPARISON: DMDXUR DIG MAMM-DX UNI-RT from 11/18/2014 DMSB DIG MAMM-SCREEN DORA from 05/22/2015 DMSB DIG MAMM-SCREEN DORA W/CAD from 01/16/2017 TECHNIQUE: Standard CC and MLO images and 3D Tomosynthesis was obtained. R2 CAD reviewed. FINDINGS: Scattered fibroglandular densities are seen throughout both breasts. There are scattered benign-appearing calcifications in each breast some of which appear to be secondary to secretory disease. There is a nodular density upper-outer quadrant left breast near the axillary tail likely a low-lying node. There is no new or suspicious lesion r either breast and no suspicious microcalcifications. IMPRESSION: Fibrofatty parenchyma with no suspicious lesions seen BI-RAD Category: 2 Benign Finding(s) FOLLOW-UP: 1YR 1 Year Follow-up (A letter has been sent to the patient regarding results of the study.) Dictated by: Dr. Wes Shell MD 12/04/2019 20:[address] Wes Shell MD in [place] 12/04/2019 20:25
== END ==
PROVIDERS: PCP Family Medicine; Visit Provider Family Medicine
DX: Z12.31 Encounter for screening mammogram for malignant neoplasm of breast (principal)
CPT/HCPCS: 77063; 77067

== ENCOUNTER → 2020-01-06 09:49 | Outpatient (CLI) | payer MEDICARE, SELFPAY ==
--- NOTE | 2020-01-06 09:52 | FL_ITS ---
PROCEDURE: FL UPPER GI W AIR CLINICAL INDICATION: ESOPHAGEAL DYSPHAGIA Difficulty swallowing, dysphagia COMPARISON: No exams were available for comparison TECHNIQUE: FLUOROSCOPY TIME : 1 minutes and 20 seconds FINDINGS: The esophagus, stomach, and duodenum have an unremarkable appearance.There is a small sliding hiatal hernia. No constricting lesions are evident. There has been a prior cholecystectomy no ulcer or mass evident. No mucosal abnormalities apparent. There is normal peristalsis. The duodenal C-loop is nondisplaced. IMPRESSION: Small sliding hiatal hernia otherwise negative upper GI Dictated by: Ramakrishna Middleton MD 01/06/2020 16:26 Electronically signed by Ramakrishna Middleton MD in [place] 01/06/2020 16:26
== END ==
PROVIDERS: PCP Family Medicine; Visit Provider Family Medicine
DX: R13.10 Dysphagia, unspecified (principal)
CPT/HCPCS: 74246

== ENCOUNTER → 2020-01-21 10:22 | Outpatient (CLI) | payer MEDICARE, SELFPAY ==
[2020-01-21 13:25] LABS: Coronavirus 19 IgG Antibody Negative (Negative); Coronavirus 19 IgM Antibody Negative (Negative)
== END ==
PROVIDERS: Visit Provider Internal Medicine Gastroenterology
DX: Z01.818 Encounter for other preprocedural examination (principal)
CPT/HCPCS: 36415; 86328

== ENCOUNTER 2020-01-24 08:36 | Day surgery (SDC) | payer MEDICARE, SELFPAY ==
[2020-01-18 10:10] VITALS: BMI 32.5
[2020-01-24] VITALS (7 sets, daily range): BP systolic 108–133; BP diastolic 61–80; PULSE 53–60; RESP 16–18; TEMP 36.2–36.7; O2SAT 95–100
--- NOTE | 2020-01-24 09:21 | P.PN_ITS ---
[facility] Anesthesia Checklist - Patient Identification Patient Identification: Arm Band - Structural Data Admitted From: Home Planned Operative Procedure/s: egd Consent for Planned Operative Procedure(s) Verified: Yes Verified Documents: Surgical Consent, History and Physical - NPO Status Verified Time NPO: 00:00 - Additional verifications Anesthesia Reactions: No Hx Blood Transfusions: No Blood Transfusion Reaction: No - Airway Assessment C-Spine Mobility Assessed: Yes (mp2) TMJ Mobility Assessed: Yes Dentition: Good Dentition - Neurological Assessment Level of Consciousness: Awake, Alert - Anesthesia Plan Anesthesia Risk discussed: Yes Anesthesia Plan: Verified ASA Class: III Anesthesia Type: MAC [facility] History I have reviewed the patient's past medical history: Yes Medical History: Reports:: Asthma, Gastroesophageal Reflux Disease(GERD), Hyperlipidemia, Hypertension, Urinary Tract Infection Denies:: Anxiety, Cancer, Depression, Diabetes Mellitus Type 1, Diabetes Mellitus Type 2, Internal Pacemaker, MRSA, Seizures *Have you ever received a pneumonia vaccine?: No *Have you received a flu vaccine this season?: Yes Other Medical History: Reports: Arthritis, Hypothyroidism, Sinus Problems, Thyroid Disease. Denies: Blood Transfusion Reaction Anesthesia experience/problems:: nac Laterality Cases: Bilateral: Arthroscopy Knee Other Surgeries: Yes: Appendectomy, , Hernia Repair, Hysterectomy- Total, Sinus Surgery, Tubal Ligation. No: Pacemaker Amputation: No Fractures: No - *Social History Smoking Status: Never smoker Alcohol Intake: never Alcohol Intake Frequency:: other Substance Use Type: denies use *Occupational Status:: retired Housing: house Household Members: spouse *Travel in the last 8 weeks: None - Psychiatric History Pschychiatric History:: Denies:: Anxiety, Depression Family Hx:: Cancer, Diabetes, Hyperlipidemia, Hypertension, Thyroid Disorder
--- NOTE | 2020-01-24 10:07 | P.PCN_ITS ---
[facility] Procedure Note Procedure Note:: Upper Endoscopy Procedure Report: Esophagogastroduodenoscopy with cold biopsies and TTS balloon dilation Endoscopost: Laron Lucio II, MD Referring Physician: Matheus oBggs MD Date of Procedure: January 24, 2020 Equipment: Olympus GIF 180 standard upper endoscope Sedation: MAC sedation Indications: Mrs. Walker is a 74-year-old female who reports some choking and dysphagia for approximately 1 year. She was eating tuna last week and developed coughing and was unable to get this up. The patient does have some intermittent painful swallowing/odynophagia. She has noted some belching over the last week. She has had heartburn since starting meloxicam last year. She is due for knee surgery on January 30 and stop the meloxicam. She does notice some globus sensation. She has a long history of IBS with diarrhea. The patient did have an upper GI series on January 06, 2020 showing a very small sliding hiatal hernia but was otherwise normal. She does state that she had an upper endoscopy many years ago. Procedure: Prior to the procedure, a history and physical exam was performed, and patient's medications and allergies were reviewed. The risks, benefits and alternatives of the sedation and procedure were discussed with the patient. All questions were answered and informed consent was obtained. The patient was brought to the procedure room. Patient identification and proposed procedure were verified by the physician and the nurse. The patient was placed in a left lateral decubitus position and the scope was passed under direct vision. Throughout the procedure, the patient's blood pressure, pulse, and oxygen saturations were monitored continuously. The upper GI endoscopy was accomplished without difficulty. The patient tolerated the procedure well. Findings: The scope was passed directly into the upper esophagus and advanced to the third portion of the duodenum. The post bulbar duodenum and duodenal bulb were normal with normal mucosa and conniventes. Cold biopsies were taken from the duodenum to rule out celiac disease (because of her chronic IBS diarrhea). The scope was withdrawn through a normal duodenal bulb and pylorus into the stomach. There was bile reflux with linear reactive gastropathy of the antrum. The remainder of the antrum, body and fundus of the stomach were grossly normal. Upon retroflexion there was a very small 1 to 2 cm sliding hiatal hernia. 2 biopsies were taken in the antrum and along the lesser curvature for histology to rule out gastritis and/or H pylori. The scope was then withdrawn into the esophagus. There was no evidence of reflux esophagitis or Kimble's. There was no Schatzki's ring. There were tertiary contractions and evidence of moderate esophageal dysmotility. The entire esophagus was dilated to 60 Swiss/20 mm with a TTS hydrostatic balloon. There was some resistance at the cricopharyngeus (cricopharyngeal spasm). The remainder of the esophageal mucosa was normal. Impression: 1. Cricopharyngeal spasm status post dilation to 20 mm 2. Nonerosive GERD with moderate esophageal dysmotility and very small 1 to 2 cm hiatal hernia 3. Bile reflux with mild linear reactive gastropathy Plan: I will follow-up the biopsies. I do feel that the patient will benefit from dietary measures and additional treatment (fiber regimen) and possibly promotility therapy for functional GERD. I will discuss the findings with patient and family.
== END 2020-01-24 11:09 | disposition home or self-care (01) ==
LOC: OUTP 08:38
PROVIDERS: PCP Family Medicine; Visit Provider Internal Medicine Gastroenterology
PROC: 0DJ08ZZ Inspection of Upper Intestinal Tract, Via Natural or Artificial Opening Endoscopic (ICD-10-PCS; CPT 43235; principal; 2020-01-24 10:00)
DX: J39.2 Other diseases of pharynx (principal); K22.2 Esophageal obstruction; K44.9 Diaphragmatic hernia without obstruction or gangrene; K21.9 Gastro-esophageal reflux disease without esophagitis; K31.9 Disease of stomach and duodenum, unspecified; K58.0 Irritable bowel syndrome with diarrhea; E78.5 Hyperlipidemia, unspecified; I10 Essential (primary) hypertension; F41.9 Anxiety disorder, unspecified; E03.9 Hypothyroidism, unspecified; J45.909 Unspecified asthma, uncomplicated; M19.90 Unspecified osteoarthritis, unspecified site
CPT/HCPCS: 43239; 43249; 88305; C1726

== ENCOUNTER → 2020-05-11 15:19 | Outpatient (CLI) | payer MEDICARE, SELFPAY | PROVIDERS: Visit Provider Urology | DX: N39.0 Urinary tract infection, site not specified (principal) | CPT/HCPCS: 87086; 87088; 87186 ==

== ENCOUNTER → 2020-05-17 14:39 | Outpatient (CLI) | payer MEDICARE, SELFPAY ==
--- NOTE | 2020-05-17 14:39 | CT_ITS ---
PROCEDURE: CT ABDOMEN PELVIS WO CON CLINICAL INDICATION: recurrent uti r/o kidney stone LLQ pain prior 04/12/13 COMPARISON: CT ABDPELW/O CT ABD PELVIS W/O CONTRAST from 04/12/2013 TECHNIQUE: Axial images obtained with sagittal and coronal reformats. All CT scans at the facility use one or more dose reduction, viz: automated exposure control, ma/kV adjustment per patient size (including targeted exams where dose is matched to indication, i.e. head), or iterative reconstruction technique. FINDINGS: LOWER THORAX: No acute finding ABDOMEN & PELVIS: The liver, spleen, adrenal glands, and pancreas have an unremarkable unenhanced appearance. There is a 2.8 by 2 cm isodense the projecting off the posterior aspect of the left kidney consistent with a renal cyst which is increased in size previously measuring 1.4 cm. There is a circular area of calcification in the right renal hilum and may be due to small renal artery aneurysm at [address] angiogram may confirm. No renal or ureteral calculi. No hydronephrosis. Prior cholecystectomy and appendectomy. No intestinal obstruction or free air. Diverticulosis involves the descending colon and sigmoid colon. Prior hysterectomy. 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 There is a small amount of air within the urinary bladder which could be due to recent catheterization versus gas-forming infection. IMPRESSION: 1. 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 CT angiogram of the renal arteries may confirm. This has developed since the previous exam. 2. Enlarging left renal cyst. 3. Colonic diverticulosis without diverticulitis. 4. Small focus of air within the urinary bladder. This could be due to recent catheterization or gas-forming infection the 5. No renal or ureteral calculi. Dictated by: Ramakrishna Middleton MD 05/18/2020 07:37 Ramakrishna Middleton MD in [place] 05/18/2020 07:37
== END ==
PROVIDERS: PCP Family Medicine; Visit Provider Urology
DX: N39.0 Urinary tract infection, site not specified (principal)
CPT/HCPCS: 74176

== ENCOUNTER → 2020-07-15 09:40 | Outpatient (CLI) | payer MEDICARE, SELFPAY ==
[2020-07-15 10:44] LABS: Coronavirus 19 IgG Antibody Negative (Negative); Coronavirus 19 IgM Antibody Negative (Negative)
== END ==
PROVIDERS: Visit Provider Urology
DX: N39.0 Urinary tract infection, site not specified (principal); Z01.818 Encounter for other preprocedural examination; Z03.818 Encounter for observation for suspected exposure to other biological agents ruled out
CPT/HCPCS: 36415; 86328

== ENCOUNTER 2020-07-17 08:39 | Day surgery (SDC) | payer MEDICARE, SELFPAY ==
[2020-07-11 08:39] VITALS: BMI 32.1
[2020-07-17 08:59] VITALS: BP 172/68; PULSE 65; RESP 18; TEMP 36.3; O2SAT 98
--- NOTE | 2020-07-17 10:22 | HMH.ANESCL ---
[facility] Anesthesia Checklist - Patient Identification Patient Identification: Arm Band - Structural Data Admitted From: Home Planned Operative Procedure/s: Cystoscopy with Urethral Dilation Consent for Planned Operative Procedure(s) Verified: Yes Verified Documents: Surgical Consent, History and Physical - NPO Status Verified Time NPO: 00:00 - Additional verifications Anesthesia Reactions: No Hx Blood Transfusions: No Blood Transfusion Reaction: No - Airway Assessment C-Spine Mobility Assessed: Yes (mp2) TMJ Mobility Assessed: Yes Dentition: Good Dentition - Neurological Assessment Level of Consciousness: Awake, Alert - Anesthesia Plan Anesthesia Risk discussed: Yes Anesthesia Plan: Verified ASA Class: II Anesthesia Type: MAC [facility] History I have reviewed the patient's past medical history: Yes Medical History: Reports:: Asthma, Gastroesophageal Reflux Disease(GERD), Hyperlipidemia, Hypertension, Urinary Tract Infection Denies:: Anxiety, Cancer, Depression, Diabetes Mellitus Type 1, Diabetes Mellitus Type 2, Internal Pacemaker, MRSA, Seizures *Have you ever received a pneumonia vaccine?: No *Have you received a flu vaccine this season?: Yes Other Medical History: Reports: Arthritis, Hypothyroidism, Sinus Problems, Thyroid Disease. Denies: Blood Transfusion Reaction Anesthesia experience/problems:: nac Laterality Cases: Right: Total Knee Replacement, Bilateral: Arthroscopy Knee Other Surgeries: Yes: Appendectomy, Cholecystectomy, , Hernia Repair, Hysterectomy-Total, Sinus Surgery, Tubal Ligation. No: Pacemaker Amputation: No Fractures: No - *Social History Last grade of school completed: High school graduate Smoking Status: Never smoker Alcohol Intake: never Alcohol Intake Frequency:: other Substance Use Type: denies use *Occupational Status:: retired Housing: house Household Members: spouse *Travel in the last 8 weeks: None - Psychiatric History Pschychiatric History:: Denies:: Anxiety, Depression Family Hx:: Cancer, Diabetes, Hyperlipidemia, Hypertension, Thyroid Disorder
[2020-07-17 11:40] VITALS: BP 162/83; PULSE 60; RESP 18; TEMP 37.4; O2SAT 98
[2020-07-17 11:50] VITALS: BP 160/76; PULSE 58; RESP 18; O2SAT 98
[2020-07-17 12:20] VITALS: BP 155/72; PULSE 56; RESP 18; O2SAT 97
[2020-07-17 13:14] VITALS: TEMP 43
--- NOTE | 2020-07-17 16:28 | HMH.OPNOTE ---
Date of procedure: 07/17/20 Pre-op Diagnosis:: Recurring urinary tract infections/history of urethral stenosis Post-op Diagnosis:: Same Procedure performed:: Cystoscopy with urethral dilation Surgeon:: Mitchell Dotson MD ELECTRON GUN ASSEMBLER:: Omar Ly Anesthesia: MAC Estimated blood loss (mL): 0 Clinical Note:: Patient is a 75-year-old white female with a history of urinary tract infections. She returns today in follow-up from a visit in April when she had a CT scan and she has yet to follow-up for the cystoscopic evaluation. She was placed on prophylactic Macrobid at that time and she states that she has not had a urinary tract infection over the past [address] scan showed a small amount of air in her bladder and at her visit in April she did have an E. coli infection which could have created some gas in her bladder. She follows up today for the cystoscopic evaluation. Operative findings:: Bladder was, ureteral orifices in their normal anatomic position, urethra showed no significant stenosis. Operative note:: Patient taken to the operating room after informed consent was obtained. Was placed on the operating table in the supine position and monitored anesthesia care administered. She was then placed into the dorsal lithotomy position and prepped and draped in the standard surgical fashion. Was prepped and draped in the standard surgical fashion. After adequate analgesia the urethra was dilated with the 2224 and 26 Gu[place]ian female sounds without significant resistance. A 22 Guamanian cystoscope then passed into the bladder and the bladder emptied. The bladder then examined in a systematic fashion with a 30 degree lens. There is no evidence of mucosal normalities, stones, trabeculation or diverticula. The ureteral orifices were in their normal anatomic position with clear efflux of urine. Bladder neck and urethra were within normal limits as well. Bladder emptied and the scope removed. Urojet placed into the urethra. The patient tolerated procedure well there are no complications. Condition: stable Disposition: same day Specimens:: None Complications:: None
== END 2020-07-17 12:25 | disposition home or self-care (01) ==
LOC: OR 08:41
PROVIDERS: PCP Family Medicine; Visit Provider Urology
PROC: (CPT 52281; principal; 2020-07-17 10:15)
DX: Z87.448 Personal history of other diseases of urinary system (principal); N39.0 Urinary tract infection, site not specified; Z87.440 Personal history of urinary (tract) infections; I10 Essential (primary) hypertension; E78.5 Hyperlipidemia, unspecified; J45.909 Unspecified asthma, uncomplicated; K21.9 Gastro-esophageal reflux disease without esophagitis; E07.9 Disorder of thyroid, unspecified; Z86.14 Personal history of Methicillin resistant Staphylococcus aureus infection; Z79.899 Other long term (current) drug therapy; Z88.6 Allergy status to analgesic agent; Z88.1 Allergy status to other antibiotic agents; Z88.8 Allergy status to other drugs, medicaments and biological substances
CPT/HCPCS: 52281; 96374

== ENCOUNTER → 2020-10-23 16:03 | Outpatient (CLI) | payer MEDICARE, SELFPAY | PROVIDERS: Visit Provider Urology | DX: N39.0 Urinary tract infection, site not specified (principal) | CPT/HCPCS: 87086; 87088; 87186 ==

== ENCOUNTER → 2021-02-28 11:54 | Outpatient (CLI) | payer MEDICARE, SELFPAY | PROVIDERS: PCP Family Medicine; Visit Provider Nurse Practitioner | DX: R22.2 Localized swelling, mass and lump, trunk (principal) ==

== ENCOUNTER → 2021-03-07 15:04 | Outpatient (CLI) | payer MEDICARE, SELFPAY ==
--- NOTE | 2021-03-07 15:09 | MM_ITS ---
PROCEDURE: MM DIG SCREENING MAMM BI W/CAD Digital Breast Tomosynthesis Included CLINICAL INDICATION: SCREENING Headache a okay COMPARISON: MG DMSB DIG MAMM-SCREEN DORA from 05/22/2015 MG DMSB DIG MAMM-SCREEN DORA W/CAD from 01/16/2017 MG MM DIG SCREENING MAMM BI W/CAD from 12/02/2019 TECHNIQUE: Standard CC and MLO images and 3D Tomosynthesis was obtained. R2 CAD reviewed. FINDINGS: Average fibroglandular tissue. Bilateral benign-appearing calcifications. No malignant appearing mass or malignant-appearing microcalcification with no significant change. No architectural distortion or skin thickening IMPRESSION: Benign findings. No evidence of malignancy BI-RAD Category: 2 Benign Finding FOLLOW-UP: 1 YR 1 Year Follow-up (A letter has been sent to the patient regarding results of the study.) Dictated by: Ramakrishna Middleton MD 03/13/2021 09:23 Ramakrishna Middleton MD in [place] 03/13/2021 09:23
== END ==
PROVIDERS: PCP Family Medicine; Visit Provider Nurse Practitioner
DX: Z12.31 Encounter for screening mammogram for malignant neoplasm of breast (principal)
CPT/HCPCS: 77063; 77067

== ENCOUNTER 2021-04-03 13:00 | Outpatient (RCR) | payer MEDICARE, SELFPAY ==
--- NOTE | 2021-02-28 12:02 | XR_ITS ---
PROCEDURE: XR CHEST 2V CLINICAL HISTORY: SUPRACLAVICULAR BRITTANY FULLNESS COMPARISON: CR CXR CHEST(2 VIEWS-NOT PORTABLE) from 09/16/2013 FINDINGS: The cardiomediastinal silhouette and pulmonary vascularity are within normal limits. The lungs are clear without infiltrates, suspicious nodules, or pleural effusions. Calcified granuloma right lung base No acute bony abnormalities. Mild thoracic kyphosis unchanged IMPRESSION: No acute findings. Dictated by: Ramakrishna Middleton MD 02/28/2021 14:39 Ramakrishna Middleton MD in [place] 02/28/2021 14:39
== END 2021-04-03 13:05 | disposition home or self-care (01) ==
LOC: PT 13:00
PROVIDERS: PCP Family Medicine; Visit Provider Physician Assistant
DX: M54.5 Low back pain (principal)
CPT/HCPCS: 71046; 97010; 97014; 97033; 97035; 97110; 97163; G0283

== ENCOUNTER → 2021-04-05 13:58 | Outpatient (CLI) | payer MEDICARE, SELFPAY | PROVIDERS: PCP Family Medicine; Visit Provider Nurse Practitioner | DX: Z20.822 Contact with and (suspected) exposure to COVID-19 (principal) | CPT/HCPCS: C9803; U0003; U0005 ==

== ENCOUNTER → 2021-05-03 12:13 | Outpatient (CLI) | payer MEDICARE, SELFPAY ==
[2021-05-03 12:34] LABS: Basophils % 0.4 % (0.1-2.0); Eosinophils # 0.2 K/mm3 (0.0-0.4); Eosinophils % 2.7 % (0.1-12.0); Hematocrit 40.8 % (37.0-47.0); Hemoglobin 13.5 g/dL (12.2-16.2); Lymphocytes # 1.1 K/mm3 (0.7-4.5); Lymphocytes % 16.8 % (10-50); Mean Corpuscular Hemoglobin 31.9 pg (27.0-31.2); Mean Corpuscular Volume 96.6 fl (81-99); Mean Platelet Volume 7.7 fl (7.4-10.4); Monocytes # 0.4 K/mm3 (0.1-1.0); Monocytes % 6.3 % (1.7-9.3); Neutrophils # 4.9 K/mm3 (1.8-7.8); Neutrophils % 73.8 % (37.0-80.0); Platelet Count 264 K/mm3 (142-424); Red Blood Count 4.23 M/mm3 (4.20-5.40); Red Cell Distribution Width 13.3 % (11.5-17.5); White Blood Count 6.6 K/mm3 (4.8-10.8)
--- NOTE | 2021-05-03 12:42 | ECG_ITS ---
APPROVED REPORT Exam: Resting ECG HR:59 bpm ECG Measurements Heart Rate 59 AXES CO 176 P QRSd 84 QRS -11 QT 432 T 17 QTc 427 Conclusion Sinus bradycardia Nonspecific T wave abnormality Abnormal ECG Electronically signed by : Omar Ashton MD 05/05/2021 08:59:45
[2021-05-03 13:17] LABS: Alanine Aminotransferase 15 U/L (12-78); Albumin Level 4.2 g/dl (3.5-5.0); Albumin/Globulin Ratio 1.8 (1.1-1.8); Alkaline Phosphatase 80 U/L (38-126); Anion Gap 9.6 mEq/L (5-15); Aspartate Amino Transferase 20 U/L (14-36); Bilirubin,Total 0.9 mg/dl (0.2-1.3); Blood Urea Nitrogen 14 mg/dl (7-17); Calcium 9.6 mg/dl (8.4-10.2); Carbon Dioxide 30 mmol/L (22.0-30.0); Chloride 102 mmol/L (98-107); Chol/HDL Ratio 3.9 (1-3.5); Cholesterol 203 mg/dl (140-200); Estimated Glomerular Filt Rate 120 ml/min (>60); GFR (African American) 146 ML/MIN (>60); Globulin 2.4 g/dL (1.3-3.2); Glucose 108 mg/dl (74-100); HDL Cholesterol 52 mg/dl (40-60); Potassium 4.6 mmoL/L (3.5-5.1); Sodium 137 mmol/L (136-145); Total Protein,Serum 6.6 g/dl (6.3-8.2); Triglycerides 161 mg/dl (30-150); Uric Acid 5.3 mg/dl (2.5-6.2); VLDL Cholesterol 32 mg/dL (0-40)
[2021-05-03 13:28] LABS: C-Reactive Protein 3.7 mg/L (0-4); Direct LDL Cholesterol 116.63 mg/dL (100-129)
[2021-05-03 13:50] LABS: Thyroid Stimulating Hormone 0.29 uIU/mL (0.465-4.68)
[2021-05-03 13:58] LABS: Free T4 (Free Thyroxine) 1.15 ng/dl (0.78-2.19)
[2021-05-03 14:13] LABS: Hemoglobin A1C 7.7 % (4.0-6.0)
[2021-05-03 14:44] LABS: Erythrocyte Sedimentation Rate 22 mm/hr (0-30)
[2021-05-04 11:15] LABS: RA Latex Turbid. <10.0 IU/mL (0.0-13.9)
[2021-05-05 17:23] LABS: Antinuclear Antibodies, IFA Negative (.)
[2021-07-18 03:19] LABS: Antinuclear Antibodies (ANA) NEGATIVE
== END ==
PROVIDERS: Visit Provider Family Medicine
DX: R07.9 Chest pain, unspecified (principal); M25.50 Pain in unspecified joint; E78.5 Hyperlipidemia, unspecified; E03.9 Hypothyroidism, unspecified; R73.01 Impaired fasting glucose
CPT/HCPCS: 36415; 80053; 80061; 83036; 84439; 84443; 84550; 85025; 85651; 86038; 86140; 86431; 93005

== ENCOUNTER 2021-05-07 15:00 | Outpatient (RCR) | payer MEDICARE, SELFPAY ==
--- NOTE | 2021-04-16 15:56 | HMH.PTOPEV ---
PT Outpatient Evaluation Rehab PT Outpatient Evaluation Start: 04/16/21 14:28 Freq: Status: Active Protocol: Document 04/16/21 14:29 FRANNY (Rec: 04/16/21 15:36 FRANNY [id number]) Electronically Signed By Javier Lyn, PT 04/16/21 14:29 Outpatient Therapy Subjective History Subjective History Pt reports h/o chronic right shoulder pain for ~1 yr, insidious onset. Pt reports posterior right shoulder pain, as well as right UT mm pain, w/referred pain from shoulder to elbow. Pt reports L TKA in October, loss of ~20 degrees of flexion ROM since February, and pain in medial jt line/pes anserine area. Chief Complaint Pain,Stiff,Clicks,Weakness Symptom Type Ache,Sharp,Dull Symptoms Relieved By Rest/Positioning,Ice Symptoms Aggravated By Standing,Physical Activity, Walking Prior Functional Limitations Lifting,Housework,Standing, Recreation Activity,Walking Current Functional Limitations Lifting,Housework,Standing, Squatting,Recreation Activity, Walking Symptom Description Constant but Variable Level of pain today (0-10) 4 Pain scale - at its best (0-10) 3 Pain scale - at its worst (0-10) 8 Shoulder/Elbow Eval Shoulder Objective Measurements Palpation Tenderness tenderness shoulder exam standard right tenderness over the bicipital tendon right shoulder exam standard Shoulder Palpation Findings Tenderness,Trigger Point, Muscle Guarding Shoulder Palpation Overall Comment 3/4 UT MM, POST. RTC swelling shoulder exam standard right Posture Shoulder Posture Sitting Position (L) Rounded,(R) Rounded,(L) Forward,(R) Forward Shoulder Posture Standing Position (L) Rounded,(R) Rounded Scapula Posture Sitting Position (L) Protracted,(R) Protracted Scapular Posture Standing Position (L) Protracted,(R) Protracted Flexibilty Deficits Pectoralis Minor Muscle Length (R) Mild Tightness Pectoralis Major Muscle Length (R) Mild Tightness,(L) Mild Tightness Upper Trapezius Muscle Length (R) Moderate Tightness Shoulder ROM Right Shoulder ROM Limitations Pain Shoulder Abduction Active Range of 0-140 Motion (degrees) Shoulder Flexion Active Range of Motion 0-140 (degrees) Query Text: Shoulder MMT Shoulder Abduction Strength Grade 4- Good- Shoulder Flexion Strength Grade
== END 2021-05-07 15:05 | disposition home or self-care (01) ==
LOC: PT 15:00
PROVIDERS: Visit Provider Nurse Practitioner
DX: M25.511 Pain in right shoulder (principal); M54.42 Lumbago with sciatica, left side
CPT/HCPCS: 97010; 97014; 97035; 97110; 97163; G0283

== ENCOUNTER → 2021-05-17 14:39 | Outpatient (POV) | payer MEDICARE, SELFPAY ==
[2021-05-17 14:57] VITALS: BP 177/62; PULSE 68; RESP 18; O2SAT 99; BMI 33.2
--- NOTE | 2021-05-17 15:04 | HMH.PMCON ---
Assessment and Plan (1) Neck pain Status: Acute Category: Medical Code(s): M54.2 - Cervicalgia (2) Cervical radiculopathy Status: Acute Category: Medical Code(s): M54.12 - Radiculopathy, cervical region (3) Sacroiliitis Status: Chronic Category: Medical Code(s): M46.1 - Sacroiliitis, not elsewhere classified (4) Trochanteric bursitis of left hip Status: Chronic Category: Medical Code(s): M70.62 - Trochanteric bursitis, left hip - Assessment and plan all Dx Assessment and Plan for all problems:: Patient is currently undergoing physical therapy. She is not getting much relief to her left hip or left low back area. We will schedule her for a left SI joint injection as well as a left trochanteric bursa injection. She has had these injections in the past and has gotten significant relief. We will also schedule her for an MRI of her cervical lumbar spine per request of patient. She is having numbness and tingling into her bilateral upper extremities. We will follow-up with the patient after her injections for reevaluation of symptoms. Possible side effects of corticosteroids have been discussed with the patient. Risks and benefits of the procedure have been explained to the patient. Patient would like to proceed with the procedure. Patient has been instructed to contact the clinic with any concerns before the next appointment. Dr. Gonzalez has reviewed this note and agrees with this plan of care. This note was dictated using voice recognition software and make contain errors or omissions. HPI - Data of Consult Patient: new to practice Consult date: 05/17/21 Requesting Physician: Tanisha Alicea APRN - Consult Narrative Reason for consult: Left low back pain, left hip pain History of present illness: Ms. Walker is a 75 year old female who presents today for consultation for left low back pain, left buttock pain, left groin pain, and left leg pain. The patient does have left hip pain as well. She says that she has had this pain in the past and did undergo injective therapy within our clinic and got significant relief, up to 80 to 90% relief until undergoing her most recent left knee replacement in October 2020. Unfortunately, the patient's pain has returned. She has been told that it is likely due to sacroiliitis and trochanteric bursitis. The patient's orthopedic surgeon told her that due to compromised gait, she can cause a flareup of these areas. She did have a right knee replacement in January 2020. She did excellent with that procedure. She says after undergoing her left knee replacement in October 2020, she has had worse pain in her left low back area left groin, left hip, left buttock and left leg. She is not having any paresthesia at this time. The pain does stop at the knee. She is also having bilateral hand pain with numbness and tingling. This is new onset for her. Patient has not had recent imaging of her cervical or lumbar spine. She would like to obtain imaging to determine pathology of pain. She is currently doing physical therapy. She says that her physical therapist informed her her pain is likely from her knee but she does not feel the pain is coming from this area. She is tender to palpation to the left side. The pain is worse when she stands and walks and improves with sitting. Lying down on the right side, the patient has no pain. Today, the patient rates her pain a 7 out of 10. CC: Tanisha Alicea APRN [facility] History I have reviewed the patient's past medical history: Yes Medical History: Reports:: Asthma, Gastroesophageal Reflux Disease(GERD), Hyperlipidemia, Hypertension, Urinary Tract Infection Denies:: Anxiety, Cancer, Depression, Diabetes Mellitus Type 1, Diabetes Mellitus Type 2, Internal Pacemaker, MRSA, Seizures *Have you ever received a pneumonia vaccine?: Yes *Have you received a flu vaccine this season?: Yes Other Medical History: Reports: Arthritis, Hypothyroidism, Sinus Problems, Thyroid Disease
== END ==
PROVIDERS: Visit Provider Clinical Nurse Specialist Family Health
DX: M54.2 Cervicalgia (principal); M54.12 Radiculopathy, cervical region; M46.1 Sacroiliitis, not elsewhere classified; M70.62 Trochanteric bursitis, left hip
CPT/HCPCS: 99212; G0463

== ENCOUNTER 2021-05-25 11:31 | Day surgery (SDC) | payer MEDICARE, SELFPAY ==
[2021-05-25 11:43] VITALS: BP 171/66; PULSE 61; RESP 18; TEMP 36.6; O2SAT 98; BMI 33.2
[2021-05-25 12:19] VITALS: BP 168/72; PULSE 76; RESP 18; O2SAT 97
[2021-05-25 12:21] VITALS: BP 178/68; PULSE 74; RESP 18; O2SAT 97
--- NOTE | 2021-05-25 12:26 | P.PCN_ITS ---
- Procedure Date: 05/25/21 Time: 12:26 Anesthesiologist:: Antonino Gonzalez MD Complications:: None Pre-procedure Diagnosis:: Sacroiliitis and trochanteric bursitis Post-procedure Diagnosis:: Same Indications for Procedure:: Patient is a pleasant 75-year-old white female who we are treating for low back pain and left hip pain. She is tender over the left trochanteric bursa. She is tender over the left SI joint. She has done well with these injections in the past. She has a positive Danyel's test on left side. She is positive Christine test on the left side. She has positive SI joint compression test on left side. She is positive distraction test on left side. We will plan a left SI joint injection and a left trochanteric bursa injection under fluoroscopy today. She is also tender over the left trochanteric bursa. Procedure Details:: Left SI joint injection under fluoroscopy Informed consent was obtained and the risks and benefits of the procedure was explained to the patient. Patient was taken to the procedure room. Patient was placed prone on the procedure table. The left hip was prepped using ChloraPrep. The skin and subcutaneous tissues were anesthetized using lidocaine. I placed a 22-gauge spinal needle into the inferior aspect of the left SI joint. Needle placement was confirmed with dye. After this we injected 5 mL bupivacaine 0.25% and Depo-Medrol 40 mg into the left SI joint. The patient tolerated the procedure well with no complication. Left trochanteric bursa injection under fluoroscopy informed consent was obtained and the risk and benefits of the procedure was explained to the patient. The patient was taken to procedure room and placed prone on the procedure table. The left hip was prepped using ChloraPrep. The skin and subcutaneous tissues were anesthetized using lidocaine. I placed a 22- gauge spinal needle under fluoroscopic guidance and advanced until it contacted the left greater trochanter. Needle placement was confirmed with dye. After this we injected 5 mL bupivacaine 0.25% and Depo-Medrol 40 mg. Patient tolerated the procedure well with no complications. Plan and Disposition:: We will follow-up with her in 2 weeks. Will reevaluate symptoms at that time.
[2021-05-25 12:40] VITALS: BP 137/69; PULSE 62; RESP 20; O2SAT 99
== END 2021-05-25 12:40 | disposition home or self-care (01) ==
LOC: SC.PAINP 11:32
PROVIDERS: PCP Family Medicine; Visit Provider Anesthesiology
DX: M46.1 Sacroiliitis, not elsewhere classified (principal); M70.62 Trochanteric bursitis, left hip; E78.5 Hyperlipidemia, unspecified; I10 Essential (primary) hypertension; J45.909 Unspecified asthma, uncomplicated; K21.9 Gastro-esophageal reflux disease without esophagitis; E03.9 Hypothyroidism, unspecified; Z88.6 Allergy status to analgesic agent; Z88.1 Allergy status to other antibiotic agents; Z88.2 Allergy status to sulfonamides
CPT/HCPCS: 20610; 27096; 77002; G0260; Q9966

== ENCOUNTER → 2021-05-31 13:30 | Outpatient (CLI) | payer MEDICARE, SELFPAY ==
--- NOTE | 2021-05-31 13:33 | MR_ITS ---
PROCEDURE INFORMATION: Exam: MR Thoracic Spine Without Contrast Exam date and time: 05/31/2021 1:33 PM Age: 75 years old Clinical indication: Pain in thoracic spine; Additional info: Back and neck pain. Bilateral arm numbness. Neck pain. Mid back pain. Lt leg pain. Prior MR 08-07-17 TECHNIQUE: Imaging protocol: Multiplanar magnetic resonance images of the thoracic spine without contrast. COMPARISON: CT ABDOMEN PELVIS WO CON 05/17/2020 3:04 PM FINDINGS: Vertebrae: No acute fracture or listhesis. Scattered fatty T1 hyperintense foci in the thoracic vertebral bodies, e.g. T6, T11 and T12 on sagittal series 6, image 8 which are probably a combination of fatty marrow and tiny hemangiomas. There is some mild STIR hyperintensity within the T6 and T8 lesions on sagittal series 7 image 9, these are probably atypical hypervascular hemangiomas, less likely would be aggressive lesions. No other significant marrow edema. Mild anterior wedge deformities T6 through T9 with mild thoracic kyphosis. Spinal cord: The thoracic cord is normal in signal and contour throughout. No edema, syrinx, or compression. Conus tip is at the T12-L1 level. Discs/Spinal canal/Neural foramina: Degenerative disc narrowing and spondylosis greatest T4-T5 through T9-T10. Minimal shallow posterior disc bulging greatest T7-T8, no significant protrusion. No spinal or foraminal stenoses. Soft tissues: No acute findings. There are no soft tissue masses or fluid collections. Vasculature: No thoracic aortic aneurysm, as visualized. IMPRESSION: 1. No acute fracture or listhesis. 2. Multiple mild chronic anterior wedge compression deformities in the midthoracic spine with kyphosis. 3. Multilevel degenerative disc disease and mild spondylosis, but no significant disc protrusion, and no significant spinal or foraminal stenoses. 4. 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 Contrast enhanced scan or nuclear bone scan may help if clinically indicated to confirm a benign appearance and exclude aggressive neoplasm. 5. Additional nonemergency and chronic findings as above.
--- NOTE | 2021-05-31 13:33 | MR_ITS ---
PROCEDURE INFORMATION: Exam: MR Cervical Spine Without Contrast Exam date and time: 05/31/2021 1:33 PM Age: 75 years old Clinical indication: Neck pain; Additional info: Back and neck pain. Bilateral arm numbness. Neck pain. Mid back pain. Lt leg pain. Prior MR 08-07-17 TECHNIQUE: Imaging protocol: Multiplanar magnetic resonance images of the cervical spine without contrast. COMPARISON: [facility] [place] [place] cervical spine wo con 08/07/2017 1:48 PM FINDINGS: Vertebrae: Cervical vertebrae remain intact and normally aligned with normal signal intensity.There are no lytic skeletal lesions seen. Spinal cord: The cervical cord remains within normal limits in signal and contour. No compression. No mass. No syrinx. Visualized posterior fossa and brainstem are unremarkable. C2-C3: Shallow posterior disc bulge. No stenosis. C3-C4: Shallow posterior disc bulge. No stenosis. C4-C5: Shallow posterior disc bulge. Minimal facet hypertrophy. No stenosis. C5-C6: A shallow posterior disc protrusion toward the left, indenting the thecal sac and contacting the ventral surface of the cord, sagittal series 3, image 9 and axial series 5, image 16. Shallow left posterolateral uncovertebral spurs and disc narrow the os of the left C6 neural foramen with [id number] stenosis, sagittal series 2 images 11-12, sagittal series 6 images 35-37, and axial series 5 image 16, impinging on the left C6 nerve root. Central spinal canal is mildly stenosed toward the left. Smaller right lateral uncovertebral spurs with mild right C6 foraminal stenosis series 6, images 18-20. C6-C7: Shallow posterior disc bulge, mildly narrowing the central spinal canal. The C7 foramina are minimally narrowed. C7-T1: Unremarkable. No significant stenosis. Soft tissues: No acute findings. Severely atrophic thyroid versus partial thyroidectomy. No prevertebral swelling. Vertebral arteries: Dominant right vertebral artery. No acute findings. IMPRESSION: Degenerative changes greatest at C5-C6 as detailed above, with mild central spinal stenosis greater toward the left, and degenerative stenosis of the C6 foramina greater on the left with left C6 nerve impingement.
== END ==
PROVIDERS: PCP Family Medicine; Visit Provider Clinical Nurse Specialist Family Health
DX: M54.2 Cervicalgia (principal); M54.6 Pain in thoracic spine
CPT/HCPCS: 72141; 72146; 76376

== ENCOUNTER → 2021-06-12 11:33 | Outpatient (POV) | payer MEDICARE, SELFPAY ==
[2021-06-12 11:38] VITALS: BP 159/84; PULSE 66; RESP 18; O2SAT 97; BMI 33.4
--- NOTE | 2021-06-12 12:00 | HMH.PAINSOAP ---
[facility] Pain Management SOAP Note Subjective:: Patient is a very pleasant 75 white female who presents today for follow-up. The patient recently had a left SI joint injection and left trochanteric bursa injection. The patient says that she got significant relief following the injections. She does rate her pain a 4 out of 10 today. She is continuing to have low back pain as well as bilateral knee pain. She says the pain is excruciating on some days and tolerable other days. She did attempt physical therapy which gave her relief while doing therapy, but pain returned immediately following therapy. She has a recent MRI of her cervical and thoracic spine. She is having neck pain with radicular pain into bilateral upper extremities. She is here today to review the MRIs. Review of Systems General: No recent weight changes, no fever, no sleep disturbances Respiratory: No cough, no shortness of air, no recurring pulmonary infections Cardiovascular/peripheral vascular: No chest pain, no palpitations, no edema, no shortness of breath Gastrointestinal: No new onset incontinence, normal bowel movements reported Genitourinary: No new onset incontinence Musculoskeletal: Neck pain with radiation into bilateral upper extremities, low back pain with radiation into left leg and left knee, intermittent pain right knee Psychiatric: [Normal mood/affect] Neurological: Weakness bilateral lower extremities Objective:: Physical exam General: Alert and oriented x3, no acute distress, pleasant and cooperative Lungs: Respirations even and unlabored, symmetrical chest expansion Eyes: PERRL Musculoskeletal: Flexion and extension of cervical and lumbar [spine] somewhat guarded secondary to pain, [antalgic gait noted] Neurological: Speech clear, no gross sensory deficit Assessment:: Degenerative disc disease cervical spine with cervical radiculopathy symptoms, cervical spinal stenosis, degenerative disc disease thoracic spine with chronic wedge compression deformities, low back pain Plan:: Patient I reviewed her MRIs today. Per the patient's MRI report, cervical spine?degenerative disc disease with degenerative stenosis of C6 and impingement of C6 nerve root greater on the left, MRI thoracic spine, per report, multilevel degenerative disc disease mild spondylosis with STIR edema signal with recommendation of scan with contrast to rule out aggressive neoplasm. Patient's pain is primarily in her low back today this is where the pain is at its worst. She does report the SI injection and the trochanteric bursa injection did give her relief but she does continue to have low back pain that is worse with standing and walking. She is also having bilateral knee pain worse to the left side. We will order the patient Voltaren gel. If she does not get relief with Voltaren gel she may be a candidate for the compounding cream. We will also schedule the patient per recommendation of the MRIs a MRI with contrast of the thoracic spine and an MRI with and without contrast of her lumbar spine. We will see her back in the clinic after these scans to follow-up and discuss a further plan of care. Patient has been instructed to contact the clinic with any concerns before the next appointment. Dr. Gonzalez has reviewed this note and agrees with this plan of care. This note was dictated using voice recognition software and make contain errors or omissions. [facility] History I have reviewed the patient's past medical history: Yes Medical History: Reports:: Asthma, Gastroesophageal Reflux Disease(GERD), Hyperlipidemia, Hypertension, Urinary Tract Infection Denies:: Anxiety, Cancer, Depression, Diabetes Mellitus Type 1, Diabetes Mellitus Type 2, Internal Pacemaker, MRSA, Seizures *Have you ever received a pneumonia vaccine?: Yes *Have you received a flu vaccine this season?: Yes Other Medical History: Reports: Arthritis, Hypothyroidism, Sinus Problems, Thyroid Disease. Denies: Blood Tr
== END ==
PROVIDERS: Visit Provider Clinical Nurse Specialist Family Health
DX: M50.10 Cervical disc disorder with radiculopathy, unspecified cervical region (principal); M51.34 Other intervertebral disc degeneration, thoracic region; M48.02 Spinal stenosis, cervical region; M43.8X4 Other specified deforming dorsopathies, thoracic region; M54.50 Low back pain, unspecified
CPT/HCPCS: 99212; G0463

== ENCOUNTER → 2021-06-19 12:13 | Outpatient (CLI) | payer MEDICARE, SELFPAY ==
[2021-06-19 12:42] LABS: Blood Urea Nitrogen 18 mg/dl (7-17); Estimated Glomerular Filt Rate 97 ml/min (>60); GFR (African American) 118 ML/MIN (>60)
--- NOTE | 2021-06-19 14:13 | MR_ITS ---
PROCEDURE: MR LUMBAR SPINE WO/W CON CLINICAL INDICATION: BACK PAIN COMPARISON: MR [employer]/O MRI-L-SPINE W/O from 12/17/2016 MR MR CERVICAL SPINE WO CON from 05/31/2021 TECHNIQUE: Standard multiplanar multiecho sequences are performed without and with contrast. 3-D MIP and myelographic images are also rendered and reviewed FINDINGS: There is normal alignment. The spinal cord ends at the T12-L1 level. T10-T11: Mild degenerative disc disease. T11-T12: Small T1 and T2 hyperintensity in the anterior aspect and inferior aspect of the T11 vertebral body with areas of low signal consistent with a small hemangioma. There may be some minimal contrast enhancement. This was present on 12/17/2016 T12-L1: Unremarkable. L1-L2: Mild degenerative disc disease with minimal circumferential bulging disc. L2-L3: Unremarkable. L3-L4: Minimal circumferential bulging disc. Mild facet hypertrophic change with mild right lateral recess narrowing. L4-5: Minimal circumferential bulging disc with facet and ligamentum hypertrophy with mild bilateral lateral recess narrowing. L5-S1: Small circumferential bulging disc with facet and ligamentum hypertrophy. Post enhanced images are obtained. There may be minimal enhancement of the T11 vertebral body lesion. No other enhancing areas are apparent. Small left renal cortical and parapelvic cysts IMPRESSION: 1. Mild multilevel lumbar spondylosis. Please see above for detailed description at each level. 2. Suspected small hemangioma at T11 slightly more prominent compared to 12/17/2016 Dictated by: Ramakrishna Middleton MD 06/20/2021 09:18 Ramakrishna Middleton MD in [place] 06/20/2021 09:18
--- NOTE | 2021-06-19 14:13 | MR_ITS ---
PROCEDURE INFORMATION: Exam: MR Thoracic Spine With Contrast Exam date and time: 06/19/2021 2:13 PM Age: 76 years old Clinical indication: Pain in thoracic spine; Additional info: Back pain. Back pain. Bilateral lbp. Lt leg pain, numbness, and tingling [id number]. 16ml prohance given. Lot: [id number] exp: Jan 2023 bun: 0.6 gfr: 97 prior abnormal MR 05-31-21 TECHNIQUE: Imaging protocol: Multiplanar magnetic resonance images of the thoracic spine with intravenous contrast. Contrast material: PROHANCE; Contrast volume: 16 ml; Contrast route: IV; COMPARISON: MR THORACIC SPINE WO CON 05/31/2021 1:55 PM FINDINGS: Vertebrae: There are areas of nonenhancing subcortical medullary fat condensation noted within T6 and T12. Mild anterior wedge compression deformities of T6, T7, T8, and T9 described on prior examination not appreciated on this examination. There is no evidence of abnormal enhancement of individual thoracic vertebral bodies. Spinal cord: The conus medullaris occurs at T12-L1. No evidence of abnormal cord enhancement. Post-contrast T1 signal intensity is normal. T1-T2: No significant disc disease. No significant spinal canal stenosis. T2-T3: No significant disc disease. No significant spinal canal stenosis. T3-T4: No significant disc disease. No significant spinal canal stenosis. T4-T5: No significant disc disease. No significant spinal canal stenosis. T5-T6: No significant disc disease. No significant spinal canal stenosis. T6-T7: No significant disc disease. No significant spinal canal stenosis. T7-T8: No significant disc disease. No significant spinal canal stenosis. T8-T9: No significant disc disease. No significant spinal canal stenosis. T9-T10: No significant disc disease. No significant spinal canal stenosis. T10-T11: No significant disc disease. No significant spinal canal stenosis. T11-T12: No significant disc disease. No significant spinal canal stenosis. Soft tissues: There is a 12 mm area of nonenhancing diminished T1 signal present within the posterior aspect of the spleen. This was seen on prior examination and is uniformly decreased T1 and increased T2 signal on the prior examination. It is compatible with a splenic cyst. There is a 1.4 cm nonenhancing cortical cyst arising from the superior pole of the left kidney. Two additional subcentimeter nonenhancing subcapsular cortical cysts are identified within the left kidney. IMPRESSION: 1. Previously described compression deformities of T6-T9 not appreciated on this examination. 2. Changes of increased T1 signal within T6 and T12 are felt to represent areas of benign subcortical medullary fat condensation within these respective vertebral bodies. No evidence of enhancing vertebral body mass. 3. No evidence of a central canal stenosis or asymmetric disc protrusion. Signal intensity within the thoracic cord is normal. The conus medullaris is at T12-L1. 4. Benign left renal and splenic cysts. 5. No evidence of paraspinal mass.
== END ==
PROVIDERS: PCP Family Medicine; Visit Provider Clinical Nurse Specialist Family Health
DX: M54.6 Pain in thoracic spine (principal); M54.50 Low back pain, unspecified
CPT/HCPCS: 36415; 72147; 72158; 76376; 82565; 84520; A9576

== ENCOUNTER → 2021-06-25 11:39 | Outpatient (POV) | payer MEDICARE, SELFPAY ==
[2021-06-25 11:45] VITALS: BP 181/70; PULSE 66; RESP 18; O2SAT 97; BMI 33.6
--- NOTE | 2021-06-25 12:19 | HMH.PAINSOAP ---
[facility] Pain Management SOAP Note Subjective:: Patient is a 76-year-old white female who presents today for follow-up. Patient was last seen on 06/12/2021. Due to abnormal MRI, there was recommendation the patient undergo MRI of thoracic and lumbar spine with contrast. Patient is having mid and low back pain as well as neck pain. The pain is radicular in nature into bilateral upper extremities and lower extremities. She has had a left SI injection as well as a left trochanteric bursa injection and got up to 50% relief but the pain has returned. She is also having neck pain with numbness and tingling into bilateral upper extremities. The patient says that she does not want to proceed with further injective therapy at this time and is not interested in oral opiates. She does take Aleve as needed but does have itching noted with Aleve. Today, she rates her pain a 5 out of 10. 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 He has . She was previously scheduled for nerve conduction studies for possible carpal tunnel syndrome but had to postpone any type of work-up due to caring for her . Since his passing, she says she would like to proceed with consultation for possible nerve conduction studies. She has not seen a neurologist recently. She has been doing physical therapy for her neck, bilateral shoulders, and lower back area. The patient feels the pain worsened following physical therapy. As result she has stopped with therapy. She is here today to review her MRIs. She is not having any saddle anesthesia or changes in bowel or bladder habit. Review of Systems General: No recent weight changes, no fever, no sleep disturbances Respiratory: No cough, no shortness of air, no recurring pulmonary infections Cardiovascular/peripheral vascular: No chest pain, no palpitations, no edema, no shortness of breath Gastrointestinal: No new onset incontinence, normal bowel movements reported Genitourinary: No new onset incontinence Musculoskeletal: Neck pain with radiation into bilateral shoulders and upper extremities with numbness and tingling, low back pain worse to left low back and left hip Psychiatric: [Normal mood/affect] Neurological: [Denies weakness in extremities], [denies balance issues] Objective:: Physical exam General: Alert and oriented x3, no acute distress, pleasant and cooperative Lungs: Respirations even and unlabored, symmetrical chest expansion Eyes: PERRL Musculoskeletal: Flexion and extension of cervical and lumbar [spine] somewhat guarded secondary to pain, [antalgic gait noted], positive Danyel's test, positive compression test, positive distraction test, positive Darnell's test?left side only Neurological: Speech clear, no gross sensory deficit Assessment:: Degenerative disc disease cervical spine cervical radiculopathy symptoms, degenerative disc disease lumbar spine with lumbar facet hypertrophy, sacroiliitis left, trochanteric bursitis left Plan:: Patient I did review her MRIs today. Patient's MRI per report of cervical spine notes the patient to have impingement C6 nerve root greater on the left. The MRI of thoracic spine noted the patient to have posterior edema with recommendation of MRI with contrast to rule out aggressive neoplasm. Most recent MRI was negative for neoplasm. MRI of lumbar spine per report does note the patient to have bulging disc with ligamentum hypertrophy as well as facet hypertrophy. Patient does report pain to be worse when leaning forward. She is also having left low back pain and left hip pain tender to palpation. She does not want to proceed with injective therapy at this time. She would like a referral to neurology for possible nerve conduction studies. She has been told in the past that she does have carpal tunnel syndrome for her PCP. She would also like to try an anti-inflammatory to see if this relieves her low back pain. She has ta
== END ==
PROVIDERS: Visit Provider Clinical Nurse Specialist Family Health
DX: M50.10 Cervical disc disorder with radiculopathy, unspecified cervical region (principal); M51.36 Other intervertebral disc degeneration, lumbar region; M46.1 Sacroiliitis, not elsewhere classified; M70.62 Trochanteric bursitis, left hip
CPT/HCPCS: 99212; G0463

== ENCOUNTER → 2021-08-16 12:58 | Outpatient (POV) | payer MEDICARE, SELFPAY ==
[2021-08-16 13:19] VITALS: BP 148/67; PULSE 68; RESP 18; O2SAT 96; BMI 33.4
--- NOTE | 2021-08-16 14:44 | HMH.PAINSOAP ---
[facility] Pain Management SOAP Note Subjective:: Patient is a 76-year-old white female who presents today for follow-up. She was seen on 06/25/2021. At that time she was started on Duexis, however, the patient was advised not to take Duexis as it does have ibuprofen in it. She reports to get a rash from ibuprofen. She did see Dr. Esposito and did have nerve conduction studies. She is complaining today of severe neck pain with radiation into right shoulder and hand. She does have intermittent low back pain, but reports her neck pain to be at the worst today. Today, she rates her pain a 3 out of 10, however. She does have occasional aching sensation into her left leg. She says today, the pain is going into the right leg she has been taking Tylenol for pain relief. She does have limited range of motion of right arm due to pain in the neck and arm. Review of Systems General: No recent weight changes, no fever, no sleep disturbances Respiratory: No cough, no shortness of air, no recurring pulmonary infections Cardiovascular/peripheral vascular: No chest pain, no palpitations, no edema, no shortness of breath Gastrointestinal: No new onset incontinence, normal bowel movements reported Genitourinary: No new onset incontinence Musculoskeletal: Neck pain with radiation into right upper extremity Psychiatric: [Normal mood/affect] Neurological: [Denies weakness in extremities], [denies balance issues] Objective:: Physical exam General: Alert and oriented x3, no acute distress, pleasant and cooperative Lungs: Respirations even and unlabored, symmetrical chest expansion Eyes: PERRL Musculoskeletal: Flexion and extension of cervical and lumbar [spine] somewhat guarded secondary to pain, [antalgic gait noted] Neurological: Speech clear, no gross sensory deficit Assessment:: 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 She was advised per the report that she will likely need to see a surgeon in regards to the pain. She would like to proceed with injective therapy before seeing a surgeon regarding the results of the nerve conduction study. He is having pain in her neck with radicular symptoms into the right upper extremity. The patient does have an MRI of cervical spine with impingement C6 nerve. We will schedule her cervical epidural steroid injection at C6-C7. We will follow up with her after the injection for further evaluation. She is not on any anticoagulation therapy and is not diabetic. Possible side effects of corticosteroids have been discussed with the patient. Risks and benefits of the procedure have been explained to the patient. Patient would like to proceed with the procedure. Patient has been instructed to contact the clinic with any concerns before the next appointment. Dr. Gonzalez has reviewed this note and agrees with this plan of care. This note was dictated using voice recognition software and make contain errors or omissions. [facility] History I have reviewed the patient's past medical history: Yes Medical History: Reports:: Asthma, Gastroesophageal Reflux Disease(GERD), Hyperlipidemia, Hypertension, Urinary Tract Infection Denies:: Anxiety, Cancer, Depression, Diabetes Mellitus Type 1, Diabetes Mellitus Type 2, Internal Pacemaker, MRSA, Seizures *Have you ever received a pneumonia vaccine?: Yes *Have you received a flu vaccine this season?: Yes Other Medical History: Reports: Arthritis, Hypothyroidism, Sinus Problems, Thyroid Disease. Denies: Blood Transfusion Reaction Laterality Cases: Bilateral: Arthroscopy Knee, Tonsillectomy Other Surgeries: Yes: No Previous Surgery, Appendectomy, Cardiac Catheterization, Cholecystectomy, Colonoscopy, C-s
== END ==
PROVIDERS: Visit Provider Clinical Nurse Specialist Family Health
DX: M50.10 Cervical disc disorder with radiculopathy, unspecified cervical region (principal); M51.16 Intervertebral disc disorders with radiculopathy, lumbar region; G56.00 Carpal tunnel syndrome, unspecified upper limb
CPT/HCPCS: 99212; G0463

== ENCOUNTER 2021-09-04 15:31 | Day surgery (SDC) | payer MEDICARE, SELFPAY ==
[2021-09-04 15:41] VITALS: BP 167/62; PULSE 61; RESP 20; TEMP 35.8; O2SAT 100; BMI 34.0
[2021-09-04 15:57] VITALS: BP 177/89; PULSE 60; RESP 18; O2SAT 98
[2021-09-04 15:58] VITALS: PULSE 66; RESP 18; O2SAT 100
--- NOTE | 2021-09-04 16:04 | HMH.PMPROC ---
- Procedure Date: 09/04/21 Time: 16:04 Anesthesiologist:: Antonino Gonzalez MD Complications:: None Pre-procedure Diagnosis:: Degenerative disc disease of the cervical spine with cervical radiculopathy symptoms Post-procedure Diagnosis:: Same Indications for Procedure:: Patient pleasant 76-year-old white female who we are treating for neck pain with cervical radiculopathy symptoms. She has increasing pain in her neck radiating down to both sides right greater than left. She also does have carpal tunnel. We will do a cervical epidural steroid injection today to see if this helps with her pain symptoms. Procedure Details:: Cervical epidural steroid injection under fluoroscopy Informed consent was obtained and the risks and benefits of the procedure was explained to the patient. The patient was taken to the procedure room placed prone on the procedure table. The neck was prepped using ChloraPrep. The skin and subcutaneous tissues were anesthetized using lidocaine. I placed a 18-gauge epidural needle into the C5-C6 interspace and advanced using [id number] to air and fluoroscopic guidance. After confirmation of needle placement in the epidural space with dye, I injected 3 mL's lidocaine 1.5% and Depo-Medrol 80 mg. The patient tolerated the procedure well with no complications. Plan and Disposition:: We will follow-up with her in 2 weeks. Will reevaluate her symptoms at that time.
[2021-09-04 16:16] VITALS: BP 151/63; PULSE 52; RESP 20; O2SAT 99
== END 2021-09-04 16:17 | disposition home or self-care (01) ==
LOC: SC.PAINP 15:32
PROVIDERS: PCP Family Medicine; Visit Provider Anesthesiology
DX: M50.13 Cervical disc disorder with radiculopathy, cervicothoracic region (principal); E78.5 Hyperlipidemia, unspecified; I10 Essential (primary) hypertension; K21.9 Gastro-esophageal reflux disease without esophagitis; E03.9 Hypothyroidism, unspecified; J45.909 Unspecified asthma, uncomplicated; M19.90 Unspecified osteoarthritis, unspecified site; Z88.8 Allergy status to other drugs, medicaments and biological substances; Z88.6 Allergy status to analgesic agent; Z88.1 Allergy status to other antibiotic agents
CPT/HCPCS: 62321; 76000; J1040; Q9966

== ENCOUNTER → 2021-09-24 11:30 | Outpatient (POV) | payer MEDICARE, SELFPAY ==
[2021-09-24 11:46] VITALS: BP 146/58; PULSE 64; RESP 20; TEMP 36.5; O2SAT 96; BMI 34.0
--- NOTE | 2021-09-24 15:54 | HMH.PAINSOAP ---
[facility] Pain Management SOAP Note Subjective:: Patient is a pleasant 76-year-old female who comes in here today for follow-up after a cervical epidural steroid injection. After his procedure patient had significant relief of about 80% and rates her pain to be 3 out of 10. She denies any issues after the procedure. Patient was diagnosed with bilateral carpal tunnel syndrome. She does not want to be referred to hand yet. Today, patient is complaining of left shoulder pain that is causing her to have limitations on her range of motion. This is worse with any abduction of her shoulder. Review of Systems General: No recent weight changes, no fever, no sleep disturbances Respiratory: No cough, no shortness of air, no recurring pulmonary infections Cardiovascular/peripheral vascular: No chest pain, no palpitations, no edema, no shortness of breath Gastrointestinal: No new onset incontinence, normal bowel movements reported Genitourinary: No new onset incontinence Musculoskeletal: Neck pain, hand pain, left shoulder pain Psychiatric: [Normal mood/affect] Neurological: [Denies weakness in extremities], [denies balance issues] Objective:: Physical exam General: Alert and oriented x3, no acute distress, pleasant and cooperative Lungs: Respirations even and unlabored, symmetrical chest expansion Eyes: PERRL Musculoskeletal: Flexion and extension of cervical [spine] somewhat guarded secondary to pain. Tender to palpation around her left rhomboid. Non-tender to palpation around left shoulder joint. Limited ROM of the left shoulder secondary to pain Neurological: Speech clear, no gross sensory deficit Assessment:: Left Shoulder Pain Degenerative disc disease of the cervical spine with cervical radiculopathy Plan:: Patient has significant relief after a cervical epidural steroid injection. She will let us know if she needs a repeat of the cervical epidural steroid injection. Today, she has been complaining of left shoulder pain. She is tender around the left rhomboid muscle. She could have some myofascial pain in this area and may need a trigger point injection. Additionally, she's been having limitations on her ROM of her left shoulder. If patient continues to have left shoulder pain, we will schedule for a trigger point injection in this area. We have ordered the patient to get an X-ray of her left shoulder today. They incidentally an irregularity around the inferior scapula of uncertain significance. They said that this could represent an old fracture but a mass cannot be ruled out. CT scan is recommended. We will order a CT of her left shoulder. Patient has been instructed to contact the clinic with any concerns before the next appointment. This note was dictated using voice recognition software and may contain errors or omissions. [facility] History Medical History: Reports:: Asthma, Gastroesophageal Reflux Disease(GERD), Hyperlipidemia, Hypertension, Urinary Tract Infection Denies:: Anxiety, Cancer, Depression, Diabetes Mellitus Type 1, Diabetes Mellitus Type 2, Internal Pacemaker, MRSA, Seizures *Have you ever received a pneumonia vaccine?: Yes *Have you received a flu vaccine this season?: Yes Other Medical History: Reports: Arthritis, Hypothyroidism, Sinus Problems, Thyroid Disease. Denies: Blood Transfusion Reaction Laterality Cases: Bilateral: Arthroscopy Knee, Tonsillectomy Other Surgeries: Yes: No Previous Surgery, Appendectomy, Cardiac Catheterization, Cholecystectomy, Colonoscopy, (x2), Hernia Repair, Hysterectomy-Total, Sinus Surgery, Thyroidectomy (right lobe), Tubal Ligation, Other (bladder tack). No: Pacemaker Amputation: No Fractures: No - *Social History Smoking Status: Never smoker Alcohol Intake: never Alcohol Intake Frequency:: other Substance Use Type: denies use *Occupational Status:: other Housing: house Household Members: other *Travel in the last 8 weeks: None - Psychiatric History
== END ==
PROVIDERS: Visit Provider Student in an Organized Health Care Education/Training Program
DX: M25.512 Pain in left shoulder (principal); M50.10 Cervical disc disorder with radiculopathy, unspecified cervical region; M79.672 Pain in left foot
CPT/HCPCS: 73030; 99212; G0463

== ENCOUNTER → 2021-09-24 12:07 | Outpatient (CLI) | payer MEDICARE, SELFPAY ==
--- NOTE | 2021-09-24 12:23 | XR_ITS ---
FINAL REPORT CLINICAL HISTORY: LT SHOULDER PAIN, unable to raise left arm without pain FINDINGS: Left shoulder Three views were obtained. There is no acute fracture or dislocation. There is mild degenerative change of the acromioclavicular joint. There is mild degenerative change of the glenohumeral joint. There is mild irregularity of the inferior scapula of uncertain significance. There is mild inferior subluxation of the humeral head that may represent joint effusion. IMPRESSION: Mild degenerative change with a possible joint effusion. Irregularity of the inferior scapula of uncertain significance. This could represent an old fracture but a mass cannot be excluded. This can be further evaluated with a CT or bone scan. Reviewed, Interpreted and Dictated by Sin Castano III, MD Transcribed by Tio Barron Authenticated by Sin Castano III, MD on 09/24/2021 01:26:17 PM [facility]
== END ==
PROVIDERS: PCP Family Medicine; Visit Provider Anesthesiology Pain Medicine
DX: M25.512 Pain in left shoulder (principal)
CPT/HCPCS: 73030

== ENCOUNTER → 2021-09-28 13:09 | Outpatient (CLI) | payer MEDICARE, SELFPAY ==
--- NOTE | 2021-09-28 13:09 | XR_ITS ---
FINAL REPORT CLINICAL HISTORY: injury to unspecified toe. Pain in 4th toe. COMPARISON: September 18, 2017 FINDINGS: There is no acute fracture or dislocation. There are mild degenerative changes. There is pes planus deformity. There is no soft tissue abnormality. IMPRESSION: No acute process. Reviewed, Interpreted and Dictated by Sin Castano III, MD Transcribed by Tanisha Choudhary Authenticated by Sin Castano III, MD on 09/28/2021 03:32:24 PM [facility]
--- NOTE | 2021-09-28 13:12 | CT_ITS ---
FINAL REPORT CLINICAL HISTORY: LT SHOULDER PAIN, NO INJURY FINDINGS: Technique: Axial images through the left shoulder were performed by computed tomography. Sagittal and coronal reconstruction images were performed.This study was performed with techniques to keep radiation doses as low as reasonably achievable, (ALARA). Individualized dose reduction technique using automated exposure control or adjustment of mA and/or kV according to the patient's size were employed. No fracture is identified. No dislocation identified. There is mild a.c. joint arthrosis. Musculature is intact. No soft tissue mass or cyst is seen. IMPRESSION: No acute bony abnormality of the left shoulder. Reviewed, Interpreted and Dictated by Sin Castano III, MD Transcribed by Suzette Siddiqui Authenticated by Sin Castano III, MD on 09/28/2021 03:32:39 PM [facility]
== END ==
PROVIDERS: PCP Family Medicine; Visit Provider Anesthesiology
DX: M79.672 Pain in left foot (principal); M25.512 Pain in left shoulder
CPT/HCPCS: 73200; 73630

== ENCOUNTER → 2022-01-30 13:19 | Outpatient (CLI) | payer MEDICARE, SELFPAY | PROVIDERS: PCP Family Medicine; Visit Provider Urology | DX: R31.9 Hematuria, unspecified (principal); Z01.812 Encounter for preprocedural laboratory examination; Z20.822 Contact with and (suspected) exposure to COVID-19 | CPT/HCPCS: C9803; U0003; U0005 ==

== ENCOUNTER 2022-02-01 09:50 | Day surgery (SDC) | payer MEDICARE, SELFPAY ==
[2022-01-31 08:34] VITALS: BMI 33.8
[2022-02-01 10:09] VITALS: BP 155/68; PULSE 65; RESP 18; TEMP 36.7; O2SAT 100
--- NOTE | 2022-02-01 10:18 | P.PN_ITS ---
[facility] Anesthesia Checklist - Patient Identification Patient Identification: Arm Band - Structural Data Admitted From: Home Planned Operative Procedure/s: Cysto with urethral dilation Consent for Planned Operative Procedure(s) Verified: Yes - NPO Status Verified Time NPO: 00:00 - Additional verifications Anesthesia Reactions: No Hx Blood Transfusions: No Blood Transfusion Reaction: No - Airway Assessment C-Spine Mobility Assessed: Yes TMJ Mobility Assessed: Yes Dentition: Good Dentition (Caps) - Neurological Assessment Level of Consciousness: Awake Hx Seizures: No Numbness or tingling in extremities: Yes - Anesthesia Plan Anesthesia Risk discussed: Yes Anesthesia Plan: Verified ASA Class: III Anesthesia Type: MAC [facility] History I have reviewed the patient's past medical history: Yes Medical History: Reports:: Asthma, Gastroesophageal Reflux Disease(GERD), Hyperlipidemia, Hypertension, Urinary Tract Infection Denies:: Anxiety, Cancer, Depression, Diabetes Mellitus Type 1, Diabetes Mellitus Type 2, Internal Pacemaker, MRSA, Seizures *Have you ever received a pneumonia vaccine?: Yes *Have you received a flu vaccine this season?: Yes Other Medical History: Reports: Arthritis, Hypothyroidism, Sinus Problems, Thyroid Disease. Denies: Blood Transfusion Reaction Anesthesia experience/problems:: None Laterality Cases: Bilateral: Arthroscopy Knee, Tonsillectomy Other Surgeries: Yes: No Previous Surgery, Appendectomy, Cardiac Catheterization, Cholecystectomy, Colonoscopy, , Hernia Repair, Hysterectomy-Total, Sinus Surgery, Thyroidectomy (right lobe), Tubal Ligation, Other (bladder tack). No: Pacemaker Amputation: No Fractures: No - *Social History Last grade of school completed: High school graduate Smoking Status: Never smoker Alcohol Intake: never Alcohol Intake Frequency:: other Substance Use Type: denies use *Occupational Status:: retired Housing: house Household Members: other *Travel in the last 8 weeks: None - Psychiatric History Pschychiatric History:: Denies:: Anxiety, Depression Family Hx:: Cancer, Diabetes, Hypertension, Stroke, Thyroid Disorder
[2022-02-01 11:25] VITALS: BP 99/56; PULSE 59; RESP 18; TEMP 36.1; O2SAT 98
[2022-02-01 11:40] VITALS: BP 129/50; PULSE 57; RESP 18; TEMP 36.1; O2SAT 99
[2022-02-01 11:55] VITALS: BP 128/74; PULSE 60; RESP 18; TEMP 36.1; O2SAT 99
[2022-02-01 12:15] VITALS: BP 117/74; PULSE 59; RESP 18; TEMP 36.1; O2SAT 99
--- NOTE | 2022-02-01 12:32 | P.OP_ITS ---
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 Operative findings:: Cystoscopy reveals normal bladder and urethra. No evidence of urethral stenosis. Operative note:: Patient taken to the operating room after informed consent was obtained. Placed on the operating table in the supine position and monitored anesthesia care was administered. She was then placed into the dorsal lithotomy position and prepped and draped in the standard surgical fashion. The 22 Samoan cystoscope placed into the urethra and into the bladder without difficulty. The bladder was examined in a systematic fashion. There is no evidence of mucosal abnormalities, stones, trabeculation, cellules or diverticula. The ureteral orifices in their normal anatomic position with clear efflux of urine. The bladder neck and urethra were within normal. The bladder drained the scope removed. The urethra was then dilated with a 2628 and 30 Samoan urethral sounds . There is no evidence of stenosis. Urojet placed into the urethra for comfort measures. Patient followed procedure well no complications. Condition: stable Disposition: same day Specimens:: None Complications:: None
== END 2022-02-01 12:15 | disposition home or self-care (01) ==
LOC: OR 09:51
PROVIDERS: PCP Family Medicine; Visit Provider Urology
PROC: 0TJB8ZZ Inspection of Bladder, Via Natural or Artificial Opening Endoscopic (ICD-10-PCS; CPT 52000; principal; 2022-02-01 11:45)
DX: N30.30 Trigonitis without hematuria (principal); Z87.440 Personal history of urinary (tract) infections; K21.9 Gastro-esophageal reflux disease without esophagitis; E03.9 Hypothyroidism, unspecified; M19.90 Unspecified osteoarthritis, unspecified site; E78.5 Hyperlipidemia, unspecified; I10 Essential (primary) hypertension; Z79.899 Other long term (current) drug therapy
CPT/HCPCS: 52282; 96374

== ENCOUNTER → 2022-02-25 06:37 | Outpatient (CLI) | payer MEDICARE, SELFPAY | PROVIDERS: PCP Nurse Practitioner; Visit Provider Nurse Practitioner | DX: R30.0 Dysuria (principal); B96.29 Other Escherichia coli [E. coli] as the cause of diseases classified elsewhere | CPT/HCPCS: 87086; 87088; 87186 ==

== ENCOUNTER → 2022-03-11 13:24 | Outpatient (CLI) | payer MEDICARE, SELFPAY ==
--- NOTE | 2022-03-11 13:27 | US_ITS ---
FINAL REPORT TECHNIQUE: Sonographic imaging of the neck soft tissues was obtained. CLINICAL HISTORY: left supraclavicular LAD FINDINGS: Submandibular and parotid glands are unremarkable. No mass, cyst or fluid is seen in the left lateral neck. Normal size lymph nodes are noted. IMPRESSION: Unremarkable exam without mass or fluid collection. Reviewed, Interpreted and Dictated by José Luis Braxton MD Transcribed by Suzette Siddiqui Authenticated and [facility]
--- NOTE | 2022-03-11 14:01 | XR_ITS ---
FINAL REPORT CLINICAL HISTORY: LOW BCK PAIN FINDINGS: LUMBAR SPINE Multiple views were obtained. There is no instability on flexion and extension. There is no acute fracture. There is minimal spondylolisthesis of L1 on L2. The disc spaces are preserved. There is no soft tissue abnormality. IMPRESSION: Degenerative change with no acute bony abnormality. Reviewed, Interpreted and Dictated by José Luis Braxton MD Transcribed by Tanisha Choudhary Authenticated and . [facility]
--- NOTE | 2022-03-11 14:45 | MR_ITS ---
FINAL REPORT CLINICAL HISTORY: LOW BACK PAIN. LEFT SIDED LOW BACK PAIN. LEFT LEG PAIN. SYMPTOMS FOR YEARS. NO RECENT INJURY OR TRAUMA. FINDINGS: Multiplanar MR imaging of the lumbar spine was performed without contrast. On the sagittal T2-weighted images, there is abnormal decreased signal throughout the lumbar discs. The vertebrae are of normal height. The vertebral alignment is normal. L1-2: There is no significant canal stenosis or neural foraminal narrowing. L2-3: There is no significant canal stenosis or neural foraminal narrowing. L3-4: There is no significant canal stenosis or neural foraminal narrowing. L4-5: There is no significant canal stenosis or neural foraminal narrowing. L5-S1: There is no significant canal stenosis or neural foraminal narrowing. There is a benign-appearing cyst in the posterior left kidney measuring 2.9 x 2.1 cm. IMPRESSION: Diffuse changes of degenerative disc disease without significant spinal or neural foraminal compromise. Reviewed, Interpreted and Dictated by José Luis Braxton MD Transcribed by Lauren Alcazar Authenticated and [facility]
== END ==
PROVIDERS: PCP Nurse Practitioner; Visit Provider Neurological Surgery
DX: R59.0 Localized enlarged lymph nodes (principal); M54.50 Low back pain, unspecified
CPT/HCPCS: 72110; 72148; 76376; 76536

== ENCOUNTER → 2022-03-27 10:27 | Outpatient (CLI) | payer MEDICARE, SELFPAY ==
--- NOTE | 2022-03-27 10:27 | MM_ITS ---
PROCEDURE INFORMATION: Exam: MG Bilateral Screening 3D Mammography Exam date and time: 03/27/2022 10:21 AM Age: 76 years old Clinical indication: Screening mammogram. TECHNIQUE: Imaging protocol: Bilateral Screening tomosynthesis and 2D mammography including computer-aided detection (CAD) when performed. COMPARISON: 1. MG MM DIG SCREENING MAMM BI W/CAD 03/07/2021 3:08 PM 2. MG MM DIG SCREENING MAMM BI W/CAD 12/02/2019 1:09 PM 3. MG DMSB DIG MAMM-SCREEN DORA W/CAD 01/16/2017 10:38 AM 4. MG DMSB DIG MAMM-SCREEN DORA 05/22/2015 3:18 PM FINDINGS: MAMMOGRAPHY: Breast composition: There are scattered areas of fibroglandular density. Mass: None. Architectural distortion: No new or suspicious architectural distortion. Calcifications: Stable benign-appearing calcifications are present. No new or suspicious cluster of microcalcifications have developed. Asymmetric density: No new or suspicious asymmetric density is present Skin thickening: None. Axillary adenopathy: None. IMPRESSION: No mammographic evidence of malignancy. Recommend annual screening mammography unless otherwise clinically indicated. ASSESSMENT: BI-RADS category 2: Benign
== END ==
PROVIDERS: PCP Nurse Practitioner; Visit Provider Nurse Practitioner Obstetrics & Gynecology
DX: Z12.31 Encounter for screening mammogram for malignant neoplasm of breast (principal)
CPT/HCPCS: 77063; 77067

== ENCOUNTER → 2022-04-01 19:10 | Outpatient (CLI) | payer MEDICARE, SELFPAY ==
--- NOTE | 2022-04-01 20:19 | XR_ITS ---
PROCEDURE INFORMATION: Exam: XR Chest Exam date and time: 04/01/2022 8:32 PM Age: 76 years old Clinical indication: Shortness of breath; Patient HX: Covid +, SOA, tightness x 1 wk. HX hemoptysis; Additional info: Covid 19, hemoptysis TECHNIQUE: Imaging protocol: Radiologic exam of the chest. Views: 4 or more views. COMPARISON: CR XR CHEST 2V 02/28/2021 12:03 PM FINDINGS: Lungs: Granuloma at the right lung base. No consolidation. Pleural spaces: No pleural effusion. Heart/Mediastinum: Cardiomediastinal contours are within normal limits. Bones/joints: Degenerative changes of the shoulders. IMPRESSION: No acute findings.
[2022-04-01 20:28] LABS: Basophils # 0.1 K/mm3 (0-0.2); Basophils % 1.4 % (0.1-2.0); Eosinophils % 0.1 % (0.1-12.0); Hematocrit 40.4 % (37.0-47.0); Hemoglobin 13.2 g/dL (12.2-16.2); Lymphocytes # 0.4 K/mm3 (0.7-4.5); Lymphocytes % 5.9 % (10-50); Mean Corpuscular HGB Conc 32.7 g/dL (31.8-35.4); Mean Corpuscular Hemoglobin 31.3 pg (27.0-31.2); Mean Corpuscular Volume 95.8 fl (81-99); Mean Platelet Volume 8.6 fl (7.4-10.4); Monocytes # 0.2 K/mm3 (0.1-1.0); Neutrophils # 5.6 K/mm3 (1.8-7.8); Neutrophils % 89.6 % (37.0-80.0); Platelet Count 224 K/mm3 (142-424); Red Blood Count 4.22 M/mm3 (4.20-5.40); Red Cell Distribution Width 13.5 % (11.5-17.5); White Blood Count 6.3 K/mm3 (4.8-10.8)
[2022-04-01 20:29] LABS: MANUAL DIFFERENTIAL MANUAL DIFFERENTIAL (MANUAL DIFF)
[2022-04-01 20:32] LABS: Chloride 95 mmol/L (98-107); Sodium 133 mmol/L (136-145)
[2022-04-01 20:35] LABS: Alanine Aminotransferase 22 U/L (12-78); Albumin Level 4.4 g/dl (3.5-5.0); Alkaline Phosphatase 83 U/L (38-126); Aspartate Amino Transferase 30 U/L (14-36); Bilirubin,Total 0.5 mg/dl (0.2-1.3); Blood Urea Nitrogen 16 mg/dl (7-17); D-Dimer 0.66 ug/mL (0.0-0.5); Estimated Glomerular Filt Rate 81 ml/min (>60); GFR (African American) 98 ML/MIN (>60)
[2022-04-01 20:36] LABS: Albumin/Globulin Ratio 1.5 (1.1-1.8); Calcium 8.6 mg/dl (8.4-10.2); Carbon Dioxide 27 mmol/L (22.0-30.0); Glucose 168 mg/dl (74-100); Total Protein,Serum 7.4 g/dl (6.3-8.2)
[2022-04-01 22:34] LABS: Lymphocytes % 7 % (10-50); Monocytes % 2 % (2-9); Neutrophils % 91 % (42-76); Total Cells Counted 100
[2022-04-01 22:35] LABS: Platelet Estimate Normal; Stomatocytes 1+
== END ==
PROVIDERS: PCP Family Medicine; Visit Provider Nurse Practitioner
DX: R04.2 Hemoptysis (principal); U07.1 COVID-19; J06.9 Acute upper respiratory infection, unspecified
CPT/HCPCS: 71045; 80053; 85007; 85025; 85378; C9803; U0003; U0005

== ENCOUNTER 2022-04-03 18:39 | Emergency (ER) | payer MEDICARE, SELFPAY ==
--- NOTE | 2022-04-03 18:45 | PC.NURSE ---
*late entry* registration brought pt back via wheelchair to room. pt daughter accompanied pt to room. while in route to triage pt, a yell came from room. staff and ER MD entered the room. pt was found sitting on the floor next to the bed. family states pt attempted to transfer to the bed, but bed rolled away from pt. pt denies striking her head, pt reports falling to her buttox, and catching herself with her left wrist. pt c/o pain to the left wrist but no other areas of pain. pt transferred into the bed by staff, both rails raised in the bed, bed locked in place. call light in reach, daughter remains at bedside.
[2022-04-03 19:18] VITALS: BP 154/69; PULSE 60; RESP 18; TEMP 36.7; O2SAT 97; BMI 33.6
--- NOTE | 2022-04-03 19:48 | PC.NURSE ---
After checking the chart, the pt was stated to be confirmed positive covid. I entered the room with a swab and asked the pt where she was confirmed she stated here. I again asked what dept and was told again here. I stated that I would double check. I rechecked the chart and there was no positive test from friday in the serology tab as there should be from the visit if it were done here. I returned to the room and stated that when I reviewed the chart there was no test in our system and I would need to confirm with a test. the pt and the pts family both yelled at me at the same time. I was unable to say anything in between the two yelling at me when they finally stopped and told me this was unacceptable I stated I understood but it was also unacceptable for them to verbally attack me for attempting to do my job and exited the room.
--- NOTE | 2022-04-03 19:55 | XR_ITS ---
PROCEDURE INFORMATION: Exam: XR Left Wrist Exam date and time: 04/03/2022 8:54 PM Age: 76 years old Clinical indication: Injury or trauma; Fall; Blunt trauma (contusions or hematomas); Wrist; Left; Additional info: Fall, pain TECHNIQUE: Imaging protocol: Radiologic exam of the Left wrist. Views: 3 or more views. COMPARISON: No relevant prior studies available. FINDINGS: Bones/joints: Acute minimally displaced fracture of the distal left radius with intra-articular extension. Widening of the scapholunate interval suggestive of scapholunate ligamentous injury, age indeterminate. Punctate ossific body at the ulnar base of the thumb. Soft tissues: Unremarkable. IMPRESSION: 1. Acute minimally displaced fracture of the distal left radius with intra-articular extension. 2. Widening of the scapholunate interval suggestive of scapholunate ligamentous injury, age indeterminate. 3. Punctate ossific body at the ulnar base of the thumb. Findings may represent acute avulsion fracture vs chronic sequelae of prior trauma. Please correlate with physical exam.
--- NOTE | 2022-04-03 19:55 | CT_ITS ---
PROCEDURE INFORMATION: Exam: CTA Chest With Contrast Exam date and time: 04/03/2022 8:34 PM Age: 76 years old Clinical indication: Shortness of breath; Additional info: Short of breath, post covid TECHNIQUE: Imaging protocol: Computed tomographic angiography of the chest with contrast. 3D rendering (Not supervised by radiologist): MIP and/or 3D reconstructed images were created by the technologist. Radiation optimization: All CT scans at this facility use at least one of these dose optimization techniques: automated exposure control; mA and/or kV adjustment per patient size (includes targeted exams where dose is matched to clinical indication); or iterative reconstruction. Contrast material: ISOVUE; Contrast volume: 70 ml; Contrast route: INTRAVENOUS (IV); COMPARISON: CR XR CHEST AP 04/01/2022 8:32 PM FINDINGS: Pulmonary arteries: Dilated central pulmonary arteries. No pulmonary emboli. Aorta: No aortic dissection or aneurysm. Lungs: No acute airspace consolidation. No appreciable pulmonary edema. Mosaic attenuation throughout the pulmonary parenchyma, nonspecific. Calcified pulmonary granuloma in the right lower lobe compatible with chronic sequelae of prior granulomatous disease. Pleural spaces: No pneumothorax. No pleural effusion. Heart: Biatrial enlargement. No significant pericardial effusion. Lymph nodes: Calcified lymph nodes, compatible with chronic sequelae of prior granulomatous disease. Diaphragm: Small hiatal hernia. Bones/joints: No acute osseous abnormality. Soft tissues: Unremarkable. IMPRESSION: 1. No evidence of pulmonary embolism or other acute cardiopulmonary process. 2. Mosaic attenuation throughout the pulmonary parenchyma, nonspecific. Findings can be seen with small airways or microvascular disease. 3. Dilated central pulmonary arteries, suggestive of pulmonary arterial hypertension. No CT evidence of right heart strain. 4. Biatrial enlargement, suggestive of diastolic heart dysfunction. 5. Small hiatal hernia.
--- NOTE | 2022-04-03 19:59 | HMH.EDGENADL ---
Discharge Plan Disposition Patient Disposition: Home, Self-Care Condition: Fair Prescriptions Prescriptions: No Action azelastine 137 mcg (0.1 %) aerosol,spray 137 mcg NS DAILY PRN (Reason: asthma) 90 Days Qty: 90 liothyronine 5 mcg tablet 5 mcg PO DAILY irbesartan-hydrochlorothiazide 150-12.5 mg tablet 1 tab PO DAILY acebutolol 400 mg capsule 400 mg PO BID acetaminophen [Tylenol Extra Strength] 500 mg tablet 500 mg PO Q4-6H PRN (Reason: pain) fluticasone furoate 100 mcg/actuation blister with device 100 mcg IH DAILY PRN (Reason: soa) 30 Days Qty: 30 Label Comments: INHALE 1 PUFF BY MOUTH DAILY. RINSE MOUTH AFTER USING albuterol sulfate [Ventolin HFA] 90 mcg/actuation HFA aerosol inhaler 1 inh IH QID levothyroxine 100 mcg tablet 100 mcg PO DAILY fluticasone propionate 50 mcg/actuation spray,suspension 1 gm NS DAILY Label Comments: USE 1-2 SPRAYS INTO BOTH NOSTRILS ONCE A DAY NEEDED azithromycin 250 mg tablet See Rx Instructions PO .COMPLEX Qty: 6 0RF Rx Instructions: For 250 mg dose pack: take 500 mg today (day 1), then 250 mg for 4 days (days 2-5) PO methylprednisolone 4 mg tablets,dose pack See Rx Instructions PO PER PKG DIR Qty: 21 0RF Rx Instructions: PO PER PKG DIR kgpmorenwvsazhy-adktxnowd-DQ [Bromfed DM] 2-30-10 mg/5 mL syrup 5 ml PO Q4-6H PRN (Reason: cold symptoms) Qty: 240 0RF Paxlovid (EUA) 300 mg (150 mg x 2)-100 mg tablets,dose pack See Rx Instructions PO .COMPLEX 5 Days Qty: 30 0RF Rx Instructions: take TWO 150 mg tablets of nirmatrelvir with ONE 100 mg tablet of ritonavir twice daily for 5 days PO montelukast [Singulair] 10 mg tablet 10 mg PO QHS Qty: 90 1RF nitrofurantoin macrocrystal 50 mg capsule 50 mg PO DAILY Qty: 90 1RF fexofenadine 60 MG tablet 60 mg PO DAILY diclofenac sodium 20 GM gel 100 gm TP QID PRN (Reason: pain) Qty: 1 5RF Bifidobacterium infantis 4 MG capsule 4 mg PO DAILY estradiol 42.5 GM cream 1 appful VG DIRECTED Rx Instructions: Use 1/2 gram or blueberry size PV every other night omeprazole 20 MG capsule,delayed release(DR/EC) 20 mg PO DAILY Referrals Follow up/Referrals: Evon Mcclure APRN [Primary Care Provider] - See instructions Activity Restrictions/Add. Instructions Additional Instructions/Restrictions: You have been evaluated for cough and shortness of breath, likely due to persistent COVID infection. Does not appear to be a blood clot or pneumonia on your chest CT. Please continue to monitor your symptoms, rest and stay hydrated. Follow-up with your primary care doctor. X-ray of your left wrist shows a nondisplaced fracture. Please keep splint in place. Follow-up with orthopedics. Return to the emergency department at once for any new or worsening symptoms Clinical Impressions Clinical Impression: COVID-19, Dyspnea, Distal radius fracture, left Instructions Patient Instructions: DI for Distal Radius Fracture, DI for COVID-19 (Suspected or Confirmed ) Discharge ED Provider: Marta Moody Adult HPI General Chief complaint: Upper Respiratory Infection Stated complaint: SOA Time Seen by Provider: 04/03/22 19:59 Mode of Arrival: Wheelchair Limitations: No Limitations Description of Symptoms (Recalled from ER Triage Doc. by RN): PT REPORTS CHEST TIGHTNESS, AT HOME COVID POSITIVE SINCE FRIDAY. CALLED TO PCP ON FRIDAY, HAD LABS DRAWN. PT CONTINUES TO FEEL WEAK. PCP ADVISED PT TO BE EVALUATED History of Present Illness HPI narrative: 76-year-old female presenting to the emergency department with cough, shortness of breath, chest tightness. Patient was diagnosed with COVID-19 on Friday, 3 days ago. Since then she has had persistent cough and shortness of breath. Chest feels tight when she coughs. No chest pain at rest. Symptoms are persistent throughout the day. Not particularly short of breath
--- NOTE | 2022-04-03 20:15 | PC.NURSE ---
This RN at bedside to attempt peripheral IV. Pt reports to be a difficult stick. Attempted 2x without success. Called cardiopulmonary supervisor for an attempt. 3rd site palpable but will hold off attempt for House. Pt and her daughter are amiable to this.
[2022-04-03 20:30] VITALS: PULSE 55; O2SAT 96
--- NOTE | 2022-04-03 20:30 | PC.NURSE ---
Able to obtain peripheral IV to Mid forearm, 20g IV. Radiology notified that PIV is in place at this time.
[2022-04-03 20:40] LABS: Basophils % 0.2 % (0.1-2.0); Eosinophils % 0.4 % (0.1-12.0); Hematocrit 40.7 % (37.0-47.0); Hemoglobin 13.6 g/dL (12.2-16.2); Lymphocytes # 0.9 K/mm3 (0.7-4.5); Lymphocytes % 12.1 % (10-50); Mean Corpuscular HGB Conc 33.5 g/dL (31.8-35.4); Mean Corpuscular Hemoglobin 31.5 pg (27.0-31.2); Mean Platelet Volume 8.9 fl (7.4-10.4); Monocytes # 0.4 K/mm3 (0.1-1.0); Monocytes % 4.7 % (1.7-9.3); Neutrophils # 6.3 K/mm3 (1.8-7.8); Neutrophils % 82.5 % (37.0-80.0); Platelet Count 292 K/mm3 (142-424); Red Blood Count 4.33 M/mm3 (4.20-5.40); Red Cell Distribution Width 13.1 % (11.5-17.5); White Blood Count 7.6 K/mm3 (4.8-10.8)
[2022-04-03 20:50] LABS: Chloride 96 mmol/L (98-107); Potassium 4.5 mmoL/L (3.5-5.1); Sodium 131 mmol/L (136-145)
[2022-04-03 20:52] LABS: Blood Urea Nitrogen 25 mg/dl (7-17); Creatinine Clearance Estimated 74 mL/min (50-200); Estimated Glomerular Filt Rate 70 ml/min (>60); GFR (African American) 84 ML/MIN (>60)
[2022-04-03 20:53] LABS: Alanine Aminotransferase 25 U/L (12-78); Albumin Level 4.6 g/dl (3.5-5.0); Albumin/Globulin Ratio 1.4 (1.1-1.8); Alkaline Phosphatase 84 U/L (38-126); Anion Gap 12.5 mEq/L (5-15); Aspartate Amino Transferase 34 U/L (14-36); Bilirubin,Total 0.8 mg/dl (0.2-1.3); Calcium 8.7 mg/dl (8.4-10.2); Carbon Dioxide 27 mmol/L (22.0-30.0); Globulin 3.3 g/dL (1.3-3.2); Glucose 153 mg/dl (74-100); Total Protein,Serum 7.9 g/dl (6.3-8.2)
[2022-04-03 21:00] VITALS: PULSE 54; O2SAT 95
[2022-04-03 21:02] LABS: NT Pro Brain Natriuretic Pep. 472 pg/mL (0-450)
[2022-04-03 21:14] LABS: Troponin I < 0.01 ng/ml (0.00-0.034)
[2022-04-03 21:30] VITALS: PULSE 56; O2SAT 97
[2022-04-03 22:03] LABS: POC Glucose,Bedside 209 (70-110)
--- NOTE | 2022-04-03 22:22 | PC.NURSE ---
at to apply splint
[2022-04-03 22:30] VITALS: BP 150/88; PULSE 57; RESP 17; TEMP 36.6; O2SAT 97
== END 2022-04-03 22:31 | disposition home or self-care (01) ==
PROVIDERS: Emergency Provider Emergency Medicine; PCP Nurse Practitioner
DX: U07.1 COVID-19 (principal); S52.502A Unspecified fracture of the lower end of left radius, initial encounter for closed fracture; W19.XXXA Unspecified fall, initial encounter; Z79.890 Hormone replacement therapy; Z79.51 Long term (current) use of inhaled steroids; Z79.899 Other long term (current) drug therapy; J45.909 Unspecified asthma, uncomplicated; E07.9 Disorder of thyroid, unspecified; Z88.6 Allergy status to analgesic agent; Z88.2 Allergy status to sulfonamides
CPT/HCPCS: 71275; 73110; 80053; 82962; 83880; 84484; 85025; 99284; Q9967

== ENCOUNTER → 2022-04-16 13:05 | Outpatient (CLI) | payer MEDICARE, SELFPAY | PROVIDERS: PCP Nurse Practitioner; Visit Provider Nurse Practitioner | DX: R30.0 Dysuria (principal); B96.1 Klebsiella pneumoniae [K. pneumoniae] as the cause of diseases classified elsewhere | CPT/HCPCS: 87086; 87088; 87186 ==

== ENCOUNTER → 2022-04-30 13:06 | Outpatient (CLI) | payer MEDICARE, SELFPAY ==
--- NOTE | 2022-04-30 13:16 | CA_ITS ---
APPROVED REPORT EXAM: Comprehensive 2D, Doppler, and color-flow Echocardiogram Gear Lapping Machine Operator: Olga Blanton CRT Ht: 5 ft 1 in Wt: 179lbs BSA: 1.80 BP: 122/66 mmHg Indications: Congestive Heart Failure, pul htn covid + 04/03/22 2D Dimensions LVOT 1.72 cm (M/F) 1.5-2.5 LA Volume 42.70 mL LA Volume Index 23.70 mL/m2 (M/F) 16-34 M-Mode Dimensions RVDd 2.94 cm (0.9-2.6) LA Diam 3.34 cm (1.9-4.0) LVDd 4.91 cm (3.5-5.7) Ao Diam 4.11 cm (2.0-3.7) LVDs 2.94 cm (3.5-5.7) IVSd 1.65 cm (0.6-1.1) PWd 0.44 cm (0.6-1.1) EF (Teich) 70.60% FS 40.10% EDV (Teich) 113.40 mL TAPSE 2.04 (<1.7) ESV (Teich) 33.30 mL LV Diastology E Decel Time 157.00 (160-240 msec) E/A Ratio 0.96 MED E' 6.80 (< 7 cm/sec) MED A' 9.60 cm/s E'/MED E' Ratio 11.93 (>14) LAT E' 5.80 (<10 cm/sec) LAT A' 8.90 cm/s E/LAT E' Ratio 13.98 (>14) Aortic Valve AO Peak GR. 12.90 mmHg Mitral Valve MV A Velocity 84.00 (40-130 cm/s) E/A Ratio 0.96 MV Decel. Time 157.00 (160-240 ms) Pulmonary Valve PV Peak Velocity 149.00 (50-150 cm/s) Tricuspid Valve TR P. Velocity 111.00 cm/s RAP Estimate 10.00 mmHg RVSP 15.00 mmHg Left Ventricle Left atrium is mildly enlarged, left ventricle is normal size mild concentric left ventricular hypertrophy, estimated ejection fraction 55% with no regional wall motion abnormality, grade 1 diastolic dysfunction seen without tissue Doppler as of raise left atrial pressure. Right Ventricle Right atrium and right ventricle are normal size and contractility. Aortic Valve Aortic valve is minimally thickened and fibrosed there is no aortic stenosis or aortic insufficiency. Mitral Valve Mitral valve is grossly normal, there is mild mitral regurgitation. Tricuspid Valve Tricuspid valve grossly normal, there is mild tricuspid regurgitation, tricuspid regurgitation request is inadequate for calculation of the right ventricular systolic pressure. Pulmonic Valve Pulmonic valve is poorly visualized. Great Vessels Aortic root is normal size. Inferior vena cava normal size with normal inspiratory collapse. Pericardium No significant pericardial effusion noted. Conclusion 1. Mildly enlarged left atrium, normal left ventricular size mild concentric left ventricular hypertrophy estimated ejection fraction 55% with no regional wall motion abnormality, grade 1 diastolic dysfunction seen without tissue Doppler evidence of raise left atrial pressure. 2. Mild mitral and tricuspid regurgitation. 3. No significant pericardial effusion noted. 4. Inferior vena cava normal size with normal inspiratory collapse. Electronically signed by : Shahram Gonzalez MD 04/30/2022 21:10:38
== END ==
PROVIDERS: PCP Nurse Practitioner; Visit Provider Nurse Practitioner
DX: R06.00 Dyspnea, unspecified (principal); R93.89 Abnormal findings on diagnostic imaging of other specified body structures
CPT/HCPCS: 93306

== ENCOUNTER → 2022-05-09 10:08 | Outpatient (CLI) | payer MEDICARE, SELFPAY ==
--- NOTE | 2022-05-09 10:14 | XR_ITS ---
FINAL REPORT CLINICAL HISTORY: wrist fx COMPARISON: 04/03/2022 FINDINGS: LEFT WRIST Three views of the left wrist were obtained. A cast obscures detail. Again noted is a comminuted, impacted fracture of the distal radius. The bony alignment is stable. No new bony abnormality is identified. The visualized joint spaces are normally aligned. The soft tissues are unremarkable. IMPRESSION: Again noted comminuted, impacted fracture of the distal radius. No new bony abnormality is identified. Reviewed, Interpreted and Dictated by Sin Castano III, MD Transcribed by Lauren Alcazar Authenticated and [facility]
== END ==
PROVIDERS: PCP Family Medicine; Visit Provider Orthopaedic Surgery
DX: S52.502A Unspecified fracture of the lower end of left radius, initial encounter for closed fracture (principal)
CPT/HCPCS: 73110

== ENCOUNTER → 2022-06-04 11:15 | Outpatient (CLI) | payer MEDICARE, SELFPAY | PROVIDERS: PCP Nurse Practitioner; Visit Provider Nurse Practitioner | DX: N39.0 Urinary tract infection, site not specified (principal); R30.0 Dysuria | CPT/HCPCS: 87086 ==

== ENCOUNTER → 2022-06-06 09:55 | Outpatient (CLI) | payer MEDICARE, SELFPAY ==
--- NOTE | 2022-06-06 10:00 | XR_ITS ---
FINAL REPORT CLINICAL HISTORY: wrist fracture COMPARISON: 05/09/2022 FINDINGS: LEFT WRIST Three views of the left wrist were obtained. The overlying cast has been removed. There is deformity of the distal radial metaphysis with a healing mildly impacted and dorsally angulated fracture. The fracture line extends to the radiocarpal joint. There is persistent soft tissue swelling over the dorsum of the wrist. IMPRESSION: Cast has been removed. Healing impacted and dorsally angulated fracture. Reviewed, Interpreted and Dictated by José Luis Braxton MD Transcribed by Lauren Alcazar Authenticated and . [facility]
== END ==
PROVIDERS: PCP Family Medicine; Visit Provider Orthopaedic Surgery
DX: S52.502A Unspecified fracture of the lower end of left radius, initial encounter for closed fracture (principal); M25.532 Pain in left wrist
CPT/HCPCS: 73110

== ENCOUNTER → 2022-06-25 10:02 | Outpatient (CLI) | payer MEDICARE, SELFPAY ==
--- NOTE | 2022-06-25 10:09 | XR_ITS ---
FINAL REPORT CLINICAL HISTORY: lt wrist fracture..PAIN COMPARISON: June 06, 2022 FINDINGS: 3 views of the left wrist were obtained. There is a comminuted impacted fracture of the distal radius. Bony alignment is stable. There is evidence of interval healing. Fracture lines are not as well seen. There are mild degenerative changes. IMPRESSION: Healing distal radius fracture with stable bony alignment. Reviewed, Interpreted and Dictated by Sin Castano III, MD Transcribed by Tio Barron Authenticated and [facility]
== END ==
PROVIDERS: PCP Family Medicine; Visit Provider Orthopaedic Surgery
DX: S62.109A Fracture of unspecified carpal bone, unspecified wrist, initial encounter for closed fracture (principal)
CPT/HCPCS: 73110

== ENCOUNTER → 2022-06-25 10:06 | Outpatient (POV) | payer MEDICARE, SELFPAY ==
[2022-06-25 11:16] VITALS: BP 160/70; PULSE 71; RESP 20; O2SAT 96; BMI 33.8
--- NOTE | 2022-06-25 11:50 | EXP.PAIN.SOA ---
[facility] Pain Management SOAP Note Subjective:: Patient is a pleasant 77-year-old female who presents today for follow-up. We are currently treating the patient for degenerative disc disease of cervical and lumbar spine with cervical and lumbar radiculopathy symptoms, low back pain, carpal tunnel syndrome. Today the patient rates her pain a 4 out of 10. Patient states she recently had a fall on April 03 where she fell on her left arm and left shoulder in the ER and fractured her left wrist. Patient states this continues to be a source of pain and that she is scheduled to see Pankaj German on July 04 for her left shoulder pain. Patient states that they are looking to see whether or not she needs additional surgery. Patient has been to see a neurosurgeon in [place] who stated she was not a surgical candidate for her back pain. Patient has had injections in the past that did provide significant improvement of her symptoms. Patient states that she continues to experience neck pain, mid back pain and low back pain as well as left hip pain. Patient does state that she feels like her mid back pain is worse than her other areas at today's visit. Patient does use [id number] Tylenol to provide additional relief of her symptoms. She is also prescribed a compounding cream however she states that she is out of this medication and no longer has any additional refills. She is requesting a refill at today's visit. Patient's Ambrosio is [phone]. It is been reviewed and appropriate. Review of Systems: General: No recent weight changes, no fever, no sleep disturbances Respiratory: No cough, no shortness of air, no recurring pulmonary infections Cardiovascular/peripheral vascular: No chest pain, no palpitations, no edema, no shortness of breath Gastrointestinal: No new onset incontinence, normal bowel movements reported Genitourinary: No new onset incontinence Musculoskeletal: Neck pain, mid back pain, low back pain, left hip pain, left shoulder pain, left wrist pain Psychiatric: [Normal mood/affect] Neurological: [Denies weakness in extremities], [denies balance issues] Objective:: Physical Exam: General: Alert and oriented x3, no acute distress, pleasant and cooperative Lungs: Respirations even and unlabored, symmetrical chest expansion Eyes: PERRL Musculoskeletal: Flexion and extension of cervical, thoracic, lumbar [spine] somewhat guarded secondary to pain, [antalgic gait noted] Neurological: Speech clear, no gross sensory deficit Assessment:: Degenerative disc disease of cervical, thoracic, lumbar spine with cervical, thoracic, lumbar radiculopathy symptoms, left hip pain, left shoulder pain, left wrist pain, carpal tunnel syndrome Plan:: Patient is experiencing significant pain in her upper, mid and low back. Patient did have limited range of motion throughout her spine. Patient does state that her mid back pain is worse than her upper and low back pain at this time. I have discussed with the patient that she may benefit from a thoracic epidural steroid injections. Risk and benefits were discussed with the patient. She would like to proceed forward with this plan of care. Patient is not on any blood thinners. I will send in a refill of the patient's compounding cream. I have counseled the patient that if this injection does not provide significant improvement we will plan on ordering new thoracic MRI imaging as her last one was in 2020. Patient will be scheduled for a T SAIMA T9-T10. Patient has been instructed to contact the clinic with any concerns before the next appointment. Dr. Gonzalez has reviewed this note and agrees with this plan of care. This note was dictated using voice recognition software and make contain errors or omissions. [facility] Disclaimer: The information contained in this section may have been updated after the patient was seen, as this information can be updated by other users. Medical History (Reviewed 06/25/22 @ 10:33 by Manny
== END ==
PROVIDERS: PCP Family Medicine; Visit Provider Nurse Practitioner Family
DX: M51.16 Intervertebral disc disorders with radiculopathy, lumbar region (principal); M51.14 Intervertebral disc disorders with radiculopathy, thoracic region; M50.10 Cervical disc disorder with radiculopathy, unspecified cervical region; M25.552 Pain in left hip; M25.512 Pain in left shoulder; G56.00 Carpal tunnel syndrome, unspecified upper limb; M25.532 Pain in left wrist
CPT/HCPCS: 73110; 99212; G0463

== ENCOUNTER → 2022-07-04 10:19 | Outpatient (CLI) | payer MEDICARE, SELFPAY ==
--- NOTE | 2022-07-04 10:25 | XR_ITS ---
FINAL REPORT CLINICAL HISTORY: shoulder pain COMPARISON: September 24, 2021 FINDINGS: LEFT SHOULDER 3 views of the left shoulder were obtained. There is no acute fracture or dislocation. There are mild degenerative changes of the acromioclavicular and glenohumeral joints. There is no soft tissue abnormality. IMPRESSION: Mild degenerative changes with no acute bony abnormality. Reviewed, Interpreted and Dictated by Sin Castano III, MD Transcribed by Lauren Alcazar Authenticated and [facility]
== END ==
PROVIDERS: PCP Family Medicine; Visit Provider Orthopaedic Surgery
DX: M25.512 Pain in left shoulder (principal)
CPT/HCPCS: 73030

== ENCOUNTER → 2022-07-10 10:05 | Outpatient (CLI) | payer MEDICARE, SELFPAY ==
--- NOTE | 2022-07-10 10:06 | MR_ITS ---
FINAL REPORT CLINICAL HISTORY: rotator cuff tear. LIMITED ROM AND PAIN IN SHOULDER. SYMPTOMS [id number]. FINDINGS: Multiplanar MR imaging of the left shoulder was performed without contrast. Motion on many of the images decreases exam sensitivity. The tendons of the rotator cuff are intact without evidence of rotator cuff tear. The a.c. joint is intact. A small amount of fluid is seen in the subacromial/subdeltoid bursa. The glenoid labrum is intact. The long head of the biceps tendon is intact. A small glenohumeral joint effusion is seen. There is no evidence of fracture or dislocation. The musculature is intact. There is no evidence of soft tissue mass. IMPRESSION: No evidence of rotator cuff tear or labral tear. Mild AC joint arthrosis. Possible mild bursitis. Small joint effusion. Reviewed, Interpreted and Dictated by Sin Castano III, MD Transcribed by Tio Barron Authenticated and [facility]
== END ==
PROVIDERS: PCP Family Medicine; Visit Provider Orthopaedic Surgery
DX: M25.512 Pain in left shoulder (principal)
CPT/HCPCS: 73221

== ENCOUNTER 2022-07-26 11:00 | Outpatient (RCR) | payer MEDICARE, SELFPAY | END 2022-07-26 11:05 | disposition home or self-care (01) | LOC: OT 11:00 | PROVIDERS: Visit Provider Orthopaedic Surgery | DX: S52.502A Unspecified fracture of the lower end of left radius, initial encounter for closed fracture (principal) | CPT/HCPCS: 97010; 97014; 97018; 97035; 97110; 97140; 97164; 97165; G0283 ==

== ENCOUNTER → 2022-08-01 14:01 | Outpatient (CLI) | payer MEDICARE, SELFPAY ==
--- NOTE | 2022-08-01 14:08 | XR_ITS ---
FINAL REPORT CLINICAL HISTORY: pain COMPARISON: June 25, 2022 FINDINGS: LEFT WRIST Three views of the left wrist were obtained. Again noted is a mildly impacted subacute fracture of the distal radial metaphysis. Bony alignment is stable. The bones are osteopenic. There are mild degenerative changes. The soft tissues are unremarkable. IMPRESSION: Subacute fracture of the distal radial metaphysis. Reviewed, Interpreted and Dictated by Sin Castano III, MD Transcribed by Lauren Alcazar Authenticated and [facility]
== END ==
PROVIDERS: PCP Family Medicine; Visit Provider Physician Assistant Surgical
DX: S52.502A Unspecified fracture of the lower end of left radius, initial encounter for closed fracture (principal)
CPT/HCPCS: 73110

== ENCOUNTER → 2022-09-13 09:23 | Outpatient (CLI) | payer MEDICARE, OTHER, SELFPAY | PROVIDERS: PCP Family Medicine; Visit Provider Family Medicine | DX: R30.0 Dysuria (principal) | CPT/HCPCS: 87086 ==

== ENCOUNTER → 2022-11-19 23:19 | Outpatient (CLI) | payer MEDICARE, OTHER, SELFPAY ==
[2022-11-19 18:36] LABS: Chloride 94 mmol/L (98-107); Sodium 136 mmol/L (136-145)
[2022-11-19 18:39] LABS: Blood Urea Nitrogen 17 mg/dl (7-17); Carbon Dioxide 30 mmol/L (22.0-30.0); Estimated Glomerular Filt Rate 81 ml/min (>60); GFR (African American) 98 ML/MIN (>60)
[2022-11-19 18:40] LABS: Calcium 9.4 mg/dl (8.4-10.2); Glucose 101 mg/dl (74-100)
== END ==
PROVIDERS: PCP Nurse Practitioner; Visit Provider Nurse Practitioner
DX: R10.9 Unspecified abdominal pain (principal); R30.0 Dysuria
CPT/HCPCS: 80048; 87086

== ENCOUNTER → 2022-12-03 09:06 | Outpatient (CLI) | payer MEDICARE, SELFPAY ==
--- NOTE | 2022-12-03 09:07 | CT_ITS ---
FINAL REPORT TECHNIQUE: Axial CT images of the abdomen and pelvis were obtained before and after the administration of IV contrast. Oral contrast was administered.This study was performed with techniques to keep radiation doses as low as reasonably achievable (ALARA). Individualized dose reduction techniques using automated exposure control or adjustment of mA and/or kV according to the patient''s size were employed. CLINICAL HISTORY: abdominal pain, hx hernia repair COMPARISON: 05/17/2020 FINDINGS: Abdomen: There is a calcified granuloma in the right lung base. There is mild scarring in the left lung base. The heart is normal in size. There is fatty infiltration of the liver. The patient is status post cholecystectomy. The spleen is unremarkable. No adrenal masses present. The pancreas has an unremarkable appearance. There are multiple bilateral renal cysts, largest in the posterior aspect of the left kidney measures 29 mm, appears stable. There is moderate vascular calcification. There is a lipoma in the anterolateral abdominal wall which is stable. There are postoperative changes in the anterior abdomen and pelvic wall. There is no evidence of hernia. The aorta is normal in caliber. There is no free fluid or adenopathy. No mass or abnormal fluid collection is seen. Precontrast images demonstrate no evidence of nephrolithiasis. Pelvis: The appendix is not well visualized. There is sigmoid diverticulosis. The patient is status post hysterectomy. The urinary bladder is unremarkable. No inflammatory process is seen. There is no evidence of mass or adenopathy. There is no evidence of bowel obstruction. IMPRESSION: No evidence of acute intra-abdominal process. Postoperative changes. No evidence of hernia. Reviewed, Interpreted and Dictated by Sin Castano III, MD Transcribed by Michelle Wilcox Authenticated and [facility]
== END ==
PROVIDERS: PCP Nurse Practitioner; Visit Provider Nurse Practitioner
DX: R10.30 Lower abdominal pain, unspecified (principal); Z87.19 Personal history of other diseases of the digestive system; Z98.890 Other specified postprocedural states
CPT/HCPCS: 74178; Q9967

== ENCOUNTER → 2022-12-19 13:03 | Outpatient (CLI) | payer MEDICARE, SELFPAY | PROVIDERS: PCP Family Medicine; Visit Provider Nurse Practitioner | DX: G47.30 Sleep apnea, unspecified | CPT/HCPCS: G0399 ==

== ENCOUNTER → 2023-01-15 13:31 | Outpatient (CLI) | payer MEDICARE, SELFPAY | PROVIDERS: PCP Nurse Practitioner; Visit Provider Nurse Practitioner | DX: R30.0 Dysuria (principal) | CPT/HCPCS: 87086 ==

== ENCOUNTER → 2023-03-25 12:10 | Outpatient (CLI) | payer MEDICARE, SELFPAY ==
[2023-03-25 13:11] LABS: Blood Urea Nitrogen 19 mg/dl (7-17); Estimated Glomerular Filt Rate 81 ml/min (>60); GFR (African American) 98 ML/MIN (>60)
== END ==
PROVIDERS: PCP Family Medicine; Visit Provider Urology
DX: N39.41 Urge incontinence (principal); R35.0 Frequency of micturition; R30.0 Dysuria; Z87.440 Personal history of urinary (tract) infections
CPT/HCPCS: 36415; 82565; 84520

== ENCOUNTER 2023-04-10 16:00 | Outpatient (RCR) | payer MEDICARE, SELFPAY | END 2023-04-10 16:05 | disposition home or self-care (01) | LOC: PT 16:00 | PROVIDERS: PCP Family Medicine; Visit Provider Physician Assistant | DX: M25.561 Pain in right knee (principal); M25.562 Pain in left knee; Z96.653 Presence of artificial knee joint, bilateral | CPT/HCPCS: 97010; 97014; 97110; 97163; 97530; G0283 ==

== ENCOUNTER → 2023-04-29 08:14 | Outpatient (CLI) | payer MEDICARE, SELFPAY ==
[2023-04-29 19:30] LABS: Alanine Aminotransferase 20 U/L (12-78); Albumin Level 4.2 g/dl (3.5-5.0); Albumin/Globulin Ratio 1.6 (1.1-1.8); Alkaline Phosphatase 85 U/L (38-126); Anion Gap 11.9 mEq/L (5-15); Aspartate Amino Transferase 25 U/L (14-36); Bilirubin,Total 0.8 mg/dl (0.2-1.3); Blood Urea Nitrogen 18 mg/dl (7-17); Calcium 9.6 mg/dl (8.4-10.2); Carbon Dioxide 29 mmol/L (22.0-30.0); Chloride 101 mmol/L (98-107); Cholesterol 217 mg/dl (140-200); Estimated Glomerular Filt Rate 81 ml/min (>60); GFR (African American) 98 ML/MIN (>60); Globulin 2.7 g/dL (1.3-3.2); Glucose 118 mg/dl (74-100); HDL Cholesterol 43 mg/dl (40-60); Potassium 3.9 mmoL/L (3.5-5.1); Sodium 138 mmol/L (136-145); Total Protein,Serum 6.9 g/dl (6.3-8.2); Triglycerides 142 mg/dl (30-150); VLDL Cholesterol 28 mg/dL (0-40)
[2023-04-29 19:38] LABS: Free T4 (Free Thyroxine) 1.21 ng/dl (0.78-2.19)
[2023-04-29 19:41] LABS: Direct LDL Cholesterol 126.07 mg/dL (100-129)
[2023-04-29 20:00] LABS: Basophils % 0.7 % (0.1-2.0); Eosinophils # 0.2 K/mm3 (0.0-0.4); Eosinophils % 3.9 % (0.1-12.0); Hematocrit 41.3 % (37.0-47.0); Lymphocytes # 1.3 K/mm3 (0.7-4.5); Lymphocytes % 26.2 % (10-50); Mean Corpuscular Hemoglobin 32.7 pg (27.0-31.2); Mean Corpuscular Volume 96.1 fl (81-99); Mean Platelet Volume 9.5 fl (7.4-10.4); Monocytes # 0.4 K/mm3 (0.1-1.0); Monocytes % 8.6 % (1.7-9.3); Neutrophils % 60.6 % (37.0-80.0); Platelet Count 226 K/mm3 (142-424); Red Cell Distribution Width 13.2 % (11.5-17.5)
[2023-04-29 20:01] LABS: Thyroid Stimulating Hormone 0.67 uIU/mL (0.465-4.68)
[2023-04-29 20:20] LABS: Vitamin B12 386 pg/mL (239-931)
[2023-04-30 08:44] LABS: Hemoglobin A1C 6.1 % (4.0-6.0)
== END ==
PROVIDERS: PCP Nurse Practitioner; Visit Provider Nurse Practitioner
DX: I10 Essential (primary) hypertension (principal); R53.83 Other fatigue; E55.9 Vitamin D deficiency, unspecified; Z79.899 Other long term (current) drug therapy
CPT/HCPCS: 80053; 80061; 82306; 82607; 83036; 84439; 84443; 85025

== ENCOUNTER → 2023-05-20 09:15 | Outpatient (CLI) | payer MEDICARE, SELFPAY ==
--- NOTE | 2023-05-20 09:16 | XR_ITS ---
FINAL REPORT TECHNIQUE: Bone densitometry calculations of the lumbar spine and left hip were obtained. CLINICAL HISTORY: postmenopausal FINDINGS: Using L1-4, the bone mineral density of the spine is 0.899 g/cm2, corresponding to T-score of -1.3. Using the left hip, the bone mineral density of the femoral neck is 0.656 g/cm2, corresponding to a T-score of -1.7. Using the right hip, the bone mineral density of the femoral neck is 0.696 g/cm2, corresponding to a T-score of -1.4. NOTE: T-score: Standard deviation compared with peak bone mass of young adult mean. *Following the recommendations of the International Society of Bone Densitometry, classification of hip BMD is based on the lower of two T-scores; total hip or femoral neck. IMPRESSION: Diminished bone mineral density consistent with low bone density. FRAX data reports fracture risk of 18% for major osteoporotic fracture and 4% for hip fracture. Reviewed, Interpreted and Dictated by Sin Castano III, MD Transcribed by Michelle Wilcox Authenticated and [facility]
--- NOTE | 2023-05-20 09:16 | MM_ITS ---
PROCEDURE INFORMATION: Exam: MG Bilateral Screening 3D Mammography Exam date and time: 05/20/2023 9:32 AM Age: 77 years old Clinical indication: Screening examination; No personal or family history of breast cancer; Additional info: Breast screening TECHNIQUE: Imaging protocol: Bilateral Screening tomosynthesis and 2D mammography including computer-aided detection (CAD) when performed. COMPARISON: 1. MG MM DIG SCREENING MAMM BI W/CAD 03/27/2022 10:21 AM 2. MG MM DIG SCREENING MAMM BI W/CAD 03/07/2021 3:08 PM 3. MG MM DIG SCREENING MAMM BI W/CAD 12/02/2019 1:09 PM FINDINGS: MAMMOGRAPHY: Breast composition: There are scattered areas of fibroglandular density. Mass: No suspicious masses. Architectural distortion: No suspicious distortion. Calcifications: No suspicious calcifications. Asymmetric density: None. Skin thickening: None. Axillary adenopathy: None. IMPRESSION: No mammographic evidence of malignancy. Annual screening is recommended unless otherwise clinically indicated. ASSESSMENT: BI-RADS Category 1: Negative
== END ==
PROVIDERS: PCP Nurse Practitioner; Visit Provider Nurse Practitioner
DX: Z78.0 Asymptomatic menopausal state; Z12.31 Encounter for screening mammogram for malignant neoplasm of breast
CPT/HCPCS: 77063; 77067; 77080

== ENCOUNTER → 2023-06-24 23:30 | Outpatient (CLI) | payer MEDICARE, SELFPAY | PROVIDERS: PCP Nurse Practitioner; Visit Provider Nurse Practitioner | DX: R30.0 Dysuria (principal) | CPT/HCPCS: 87086 ==

== ENCOUNTER 2023-07-24 11:19 | Outpatient (CLI) | payer MEDICARE, OTHER, SELFPAY ==
--- NOTE | 2023-07-24 11:24 | XR_ITS ---
FINAL REPORT CLINICAL HISTORY: Cough. Concern for pneumonia. Shortness of breath. Chest pain. COMPARISON: 04/01/2022 FINDINGS: Two views of the chest were obtained. The heart size and pulmonary vascularity are within normal limits. The mediastinum is normal. No acute pulmonary abnormality is identified. There is no pneumothorax. The bony thorax is intact. IMPRESSION: No active cardiopulmonary disease. Reviewed, Interpreted and Dictated by Sin Castano III, MD Transcribed by Fay Machado Authenticated and [facility]
== END 2023-07-24 23:59 ==
PROVIDERS: PCP Nurse Practitioner; Visit Provider Nurse Practitioner
DX: J18.9 Pneumonia, unspecified organism (principal); R05.9 Cough, unspecified
CPT/HCPCS: 71046

== ENCOUNTER 2023-09-12 12:22 | Outpatient (CLI) | payer MEDICARE, OTHER, SELFPAY ==
--- NOTE | 2023-09-12 12:28 | XR_ITS ---
FINAL REPORT CLINICAL HISTORY: Foot pain FINDINGS: RIGHT FOOT 3 views of the right foot were obtained. There is no acute fracture or dislocation. There is hammertoe deformity of the second digit. Visualized joint spaces are normally aligned. Soft tissues are unremarkable. IMPRESSION: No acute bony abnormality. Reviewed, Interpreted and Dictated by José Luis Braxton MD Transcribed by Suzette Siddiqui Authenticated and . [facility]
--- NOTE | 2023-09-12 12:28 | XR_ITS ---
FINAL REPORT CLINICAL HISTORY: foot pain FINDINGS: RIGHT FOOT 3 views of the right foot were obtained. There is no acute fracture or dislocation. There is hammertoe deformity of the second and third digits. Bones are osteopenic. Visualized joint spaces are normally aligned. Soft tissues are unremarkable. IMPRESSION: No acute bony abnormality. Reviewed, Interpreted and Dictated by José Luis Braxton MD Transcribed by Suzette Siddiqui Authenticated and . [facility]
== END 2023-09-12 23:59 ==
PROVIDERS: PCP Nurse Practitioner; Visit Provider Nurse Practitioner
DX: M19.071 Primary osteoarthritis, right ankle and foot (principal); M19.072 Primary osteoarthritis, left ankle and foot; M79.672 Pain in left foot; M79.671 Pain in right foot
CPT/HCPCS: 73630

== ENCOUNTER 2023-12-16 12:10 | Outpatient (CLI) | payer MEDICARE, OTHER, SELFPAY ==
[2023-12-16 18:39] LABS: Alanine Aminotransferase 16 U/L (12-78); Albumin Level 4.3 g/dl (3.5-5.0); Albumin/Globulin Ratio 1.7 (1.1-1.8); Alkaline Phosphatase 71 U/L (38-126); Anion Gap 12.3 mEq/L (5-15); Aspartate Amino Transferase 20 U/L (14-36); Bilirubin,Total 0.8 mg/dl (0.2-1.3); Blood Urea Nitrogen 27 mg/dl (7-17); Calcium 9.8 mg/dl (8.4-10.2); Carbon Dioxide 31 mmol/L (22.0-30.0); Chloride 99 mmol/L (98-107); Chol/HDL Ratio 4.4 (1-3.5); Cholesterol 238 mg/dl (140-200); Estimated Glomerular Filt Rate 54 ml/min (>60); GFR (African American) 65 ML/MIN (>60); Globulin 2.5 g/dL (1.3-3.2); Glucose 111 mg/dl (74-100); HDL Cholesterol 54 mg/dl (40-60); Potassium 4.3 mmoL/L (3.5-5.1); Sodium 138 mmol/L (136-145); Total Protein,Serum 6.8 g/dl (6.3-8.2); Triglycerides 172 mg/dl (30-150); VLDL Cholesterol 34 mg/dL (0-40)
[2023-12-16 18:50] LABS: Direct LDL Cholesterol 128.57 mg/dL (100-129)
[2023-12-16 18:53] LABS: 25-OH Vitamin D, Total 55.2 ng/mL (30-100)
[2023-12-16 19:07] LABS: Thyroid Stimulating Hormone 1.56 uIU/mL (0.465-4.68)
[2023-12-16 19:26] LABS: Vitamin B12 368 pg/mL (239-931)
[2023-12-16 19:32] LABS: Creatinine,Urine Random 141 mg/dL (Not Estab.)
[2023-12-16 19:33] LABS: Microalbumin < 6.000 mg/L (0-16.7)
== END 2023-12-16 23:59 | disposition home or self-care (01) ==
LOC: LAB.DROPOF 12-17 12:10
PROVIDERS: PCP Nurse Practitioner; Visit Provider Nurse Practitioner
DX: I10 Essential (primary) hypertension (principal); E11.9 Type 2 diabetes mellitus without complications; E78.5 Hyperlipidemia, unspecified; E03.9 Hypothyroidism, unspecified; E55.9 Vitamin D deficiency, unspecified; R30.0 Dysuria; B96.5 Pseudomonas (aeruginosa) (mallei) (pseudomallei) as the cause of diseases classified elsewhere
CPT/HCPCS: 80053; 80061; 82043; 82306; 82570; 82607; 83036; 84443; 87086; 87088; 87186

== ENCOUNTER 2024-01-06 18:00 | Outpatient (CLI) | payer MEDICARE, OTHER, SELFPAY | END 2024-01-06 23:59 | disposition home or self-care (01) | LOC: LAB.DROPOF 01-07 13:48 | PROVIDERS: PCP Nurse Practitioner; Visit Provider Nurse Practitioner | DX: R30.0 Dysuria (principal) | CPT/HCPCS: 87086 ==

== ENCOUNTER 2024-04-12 11:39 | Outpatient (CLI) | payer MEDICARE, OTHER, SELFPAY | END 2024-04-12 23:59 | disposition home or self-care (01) | LOC: LAB.DROPOF 04-13 10:10 | PROVIDERS: PCP Nurse Practitioner; Visit Provider Nurse Practitioner | DX: R30.0 Dysuria (principal) | CPT/HCPCS: 87086 ==

== ENCOUNTER 2024-04-15 10:53 | Outpatient (CLI) | payer MEDICARE, OTHER, SELFPAY ==
--- NOTE | 2024-04-15 10:58 | XR_ITS ---
FINAL REPORT CLINICAL HISTORY: right shoulder pain COMPARISON: None FINDINGS: RIGHT SHOULDER Three views demonstrate no acute fracture or dislocation. The visualized joint spaces are normally aligned. The soft tissues are unremarkable. IMPRESSION: No acute bony abnormality. Reviewed, Interpreted and Dictated by Jessica Velez MD Transcribed by Jodie Delong Authenticated and [facility]
== END 2024-04-15 23:59 | disposition home or self-care (01) ==
LOC: RAD 10:55
PROVIDERS: PCP Nurse Practitioner; Visit Provider Nurse Practitioner
DX: M25.511 Pain in right shoulder (principal)
CPT/HCPCS: 73030

== ENCOUNTER 2024-08-04 11:20 | Outpatient (CLI) | payer MEDICARE, OTHER, SELFPAY | END 2024-08-04 23:59 | disposition home or self-care (01) | LOC: LAB.DROPOF 08-05 11:32 | PROVIDERS: PCP Nurse Practitioner; Visit Provider Nurse Practitioner | DX: R30.0 Dysuria (principal) | CPT/HCPCS: 87086 ==

== ENCOUNTER 2024-08-13 15:40 | Outpatient (CLI) | payer MEDICARE, OTHER, SELFPAY ==
--- NOTE | 2024-08-13 15:41 | MM_ITS ---
PROCEDURE INFORMATION: Exam: MG Bilateral Screening 3D Mammography Exam date and time: 08/13/2024 3:25 PM Age: 79 years old Clinical indication: Screening examination TECHNIQUE: Imaging protocol: Bilateral Screening tomosynthesis and 2D mammography including computer-aided detection (CAD) when performed. COMPARISON: 1. MG MM DIG SCREENING MAMM BI W/CAD 05/20/2023 9:32 AM 2. MG MM DIG SCREENING MAMM BI W/CAD 03/27/2022 10:21 AM 3. MG MM DIG SCREENING MAMM BI W/CAD 03/07/2021 3:08 PM FINDINGS: MAMMOGRAPHY: Breast composition: There are scattered areas of fibroglandular density. Mass: No suspicious masses. Architectural distortion: No suspicious distortion. Calcifications: No suspicious calcifications. Asymmetric density: None. Skin thickening: None. Axillary adenopathy: None. IMPRESSION: No mammographic evidence of malignancy. Annual screening is recommended unless otherwise clinically indicated. ASSESSMENT: BI-RADS Category 1: Negative.
== END 2024-08-13 23:59 | disposition home or self-care (01) ==
LOC: RAD 15:41
PROVIDERS: PCP Nurse Practitioner; Visit Provider Nurse Practitioner
DX: Z12.31 Encounter for screening mammogram for malignant neoplasm of breast (principal)
CPT/HCPCS: 77063; 77067

== ENCOUNTER 2024-08-19 12:09 | Outpatient (CLI) | payer MEDICARE, OTHER, SELFPAY ==
--- NOTE | 2024-08-19 12:14 | XR_ITS ---
FINAL REPORT CLINICAL HISTORY: lt shoulder pain FINDINGS: Left shoulder Three views were obtained. There is no fracture or dislocation. The joint spaces appear normal. No soft tissue abnormality is identified. IMPRESSION: No acute process. Reviewed, Interpreted and Dictated by José Luis Braxton MD Transcribed by Michelle Wilcox Authenticated and [facility]
== END 2024-08-19 23:59 | disposition home or self-care (01) ==
LOC: RAD 12:11
PROVIDERS: PCP Nurse Practitioner; Visit Provider Orthopaedic Surgery
DX: M25.512 Pain in left shoulder (principal); S40.012A Contusion of left shoulder, initial encounter
CPT/HCPCS: 73030

== ENCOUNTER 2024-10-05 09:04 | Outpatient (CLI) | payer MEDICARE, OTHER, SELFPAY ==
[2024-10-05 09:30] LABS: Albumin Level 4.3 g/dl (3.5-5.0); Chloride 98 mmol/L (98-107); Potassium 3.8 mmoL/L (3.5-5.1); Sodium 134 mmol/L (136-145)
[2024-10-05 09:32] LABS: Blood Urea Nitrogen 12 mg/dl (7-17); Estimated Glomerular Filt Rate 96 ml/min (>60); GFR (African American) 117 ML/MIN (>60)
[2024-10-05 09:33] LABS: Alanine Aminotransferase 30 U/L (12-78); Albumin/Globulin Ratio 1.7 (1.1-1.8); Alkaline Phosphatase 56 U/L (38-126); Anion Gap 7.8 mEq/L (5-15); Aspartate Amino Transferase 30 U/L (14-36); Bilirubin,Total 1.2 mg/dl (0.2-1.3); Calcium 9.6 mg/dl (8.4-10.2); Carbon Dioxide 32 mmol/L (22.0-30.0); Globulin 2.6 g/dL (1.3-3.2); Glucose 124 mg/dl (74-100); Total Protein,Serum 6.9 g/dl (6.3-8.2)
--- NOTE | 2024-10-05 09:47 | CT_ITS ---
FINAL REPORT TECHNIQUE: IV contrast enhanced exam This study was performed with techniques to keep radiation doses as low as reasonably achievable, (ALARA). Individualized dose reduction techniques using automated exposure control or adjustment of mA and/or kV according to the patient's size were employed. CLINICAL HISTORY: ABD WALL PAIN, H/O ABD HERNIA AND SURGERY COMPARISON: 12/03/2022 FINDINGS: CT ABDOMEN PELVIS WITH CONTRAST: Abdomen: Lung bases are clear. The gallbladder is surgically absent. Liver has an unremarkable CT appearance. The spleen, pancreas and adrenal glands are unremarkable. Multiple left renal lesions are identified, the largest measuring 30 mm in the lower pole, stable in appearance and consistent with cysts. 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 No bowel obstruction or fluid collection is seen. Pelvis: The appendix is not visualized. Pelvic bowel loops demonstrate moderate diverticulosis without acute inflammatory change. No fluid collection or adenopathy is seen. No abdominal wall hernia is identified. IMPRESSION: Chronic changes, otherwise unremarkable CT evaluation of the abdomen and pelvis Reviewed, Interpreted and Dictated by Jessica Velez MD Transcribed by Erica Valdes Authenticated and [facility]
[2024-10-05] MEDS: SODIUM CHLORIDE 0.9% 10ML SYR (RAD ONLY) 10 ML IV (10:40)
[2024-10-05] MEDS: IOPAMIDOL-370 (76%);100ML BOTTLE 75 ML IV (10:40)
[2024-10-05 12:43] LABS: Hemoglobin A1C 6.4 % (4.0-6.0)
== END 2024-10-05 23:59 | disposition home or self-care (01) ==
LOC: RAD 09:05
PROVIDERS: PCP Nurse Practitioner; Visit Provider Nurse Practitioner
DX: E11.9 Type 2 diabetes mellitus without complications (principal); R10.9 Unspecified abdominal pain; Z98.890 Other specified postprocedural states; Z87.19 Personal history of other diseases of the digestive system
CPT/HCPCS: 36415; 74177; 80053; 83036; Q9967

== ENCOUNTER 2024-10-08 08:50 | Outpatient (CLI) | payer MEDICARE, OTHER, SELFPAY ==
[2024-10-08 09:13] VITALS: BMI 33.0
--- NOTE | 2024-10-08 09:51 | ECG_ITS ---
APPROVED REPORT Exam: Resting ECG HR:60 bpm ECG Measurements Heart Rate 60 AXES ID 179 P -5 QRSd 97 QRS -8 QT 434 T 44 QTc 436 Conclusion SINUS RHYTHM LOW QRS VOLTAGE IN PRECORDIAL LEADS [QRS DEFLECTION < 1.0 mV IN CHEST LEADS] NONSPECIFIC T-WAVE ABNORMALITY BORDERLINE ECG UNCONFIRMED REPORT Electronically signed by : Omar Ashton MD 10/09/2024 19:34:45
[2024-10-08 10:07] LABS: Basophils % 0.2 % (0.1-2.0); Eosinophils % 0.4 % (0.1-12.0); Hematocrit 37.4 % (37.0-47.0); Hemoglobin 13.2 g/dL (12.2-16.2); Lymphocytes # 0.9 K/mm3 (0.7-4.5); Lymphocytes % 10.1 % (10-50); Mean Corpuscular HGB Conc 35.3 g/dL (31.8-35.4); Mean Corpuscular Hemoglobin 32.2 pg (27.0-31.2); Mean Corpuscular Volume 91.2 fl (81-99); Mean Platelet Volume 9.3 fl (7.4-10.4); Monocytes # 0.5 K/mm3 (0.1-1.0); Monocytes % 5.9 % (1.7-9.3); Neutrophils # 7.5 K/mm3 (1.8-7.8); Neutrophils % 82.6 % (37.0-80.0); Platelet Count 291 K/mm3 (142-424); Red Cell Distribution Width 12.4 % (11.5-17.5)
[2024-10-08 10:14] LABS: Anion Gap 11.5 mEq/L (5-15); Blood Urea Nitrogen 20 mg/dl (7-17); Calcium 9.4 mg/dl (8.4-10.2); Carbon Dioxide 28 mmol/L (22.0-30.0); Chloride 98 mmol/L (98-107); Creatinine Clearance Estimated 57 mL/min (50-200); Estimated Glomerular Filt Rate 96 ml/min (>60); GFR (African American) 117 ML/MIN (>60); Glucose 143 mg/dl (74-100); Potassium 3.5 mmoL/L (3.5-5.1); Sodium 134 mmol/L (136-145)
== END 2024-10-08 23:59 | disposition home or self-care (01) ==
LOC: PREOP 08:51
PROVIDERS: Nurse Anesthetist, Certified Registered; PCP Nurse Practitioner; Visit Provider Orthopaedic Surgery
DX: I10 Essential (primary) hypertension (principal); R94.31 Abnormal electrocardiogram [ECG] [EKG]
CPT/HCPCS: 80048; 85025; 93005

== ENCOUNTER 2024-10-13 06:12 | Day surgery (SDC) | payer MEDICARE, OTHER, SELFPAY ==
[2024-10-13 07:03] VITALS: BMI 32.8
[2024-10-13 07:12] VITALS: BP 177/71; PULSE 61; RESP 16; TEMP 36.4; O2SAT 98
--- NOTE | 2024-10-13 07:15 | EXP.ANES.CKL ---
[facility] Disclaimer: The information contained in this section may have been updated after the patient was seen, as this information can be updated by other users. Medical History Syndrome X, cardiac History of abdominal hernia Abdominal wall pain Left shoulder pain Right shoulder pain Vitamin D deficiency Acquired hypothyroidism Hyperlipidemia Type 2 diabetes mellitus without complications Hematuria Essential hypertension Postmenopausal Lower abdominal pain Witnessed apneic spells Hypertension Distal radius fracture, left Dyspnea Acquired pes planus of both feet Trochanteric bursitis of left hip Acquired hammertoe of left foot Onychogryphosis Varicose veins of both legs with edema Onychodystrophy Sacroiliitis Surgical History History of abdominal surgery Hx of hernia repair History of thyroid surgery History of cholecystectomy History of History of hysterectomy Family History Other Cancer Diabetes Heart attack Hypertension Social History Smoking Status: Never smoker second hand exposure: No alcohol intake: never counseling provided: none substance use type: denies use current occupational status: retired Travel in the last 8 weeks: None household members: other housing: house current occupational exposures/hazards: No caffeine: Yes Have you lived/traveled outside US in past 30 days?: No Contact w/someone who lives/traveled outside US past 30 days?: No Exposure to someone with infectious disease in past 14 days?: No Do you have a fever (greater than 100.4 F or 38 C)?: No Have you tested positive for COVID-19: No Exposed to someone with COVID-19 in past 14 days?: No Do you have a sore throat?: No Do you have a cough?: No Do you have any weakness?: No Do you have any diarrhea?: No Are you experiencing any unusual bleeding?: No Do you have any muscle aches/pain?: No Do you have any abdominal pain?: No Are you experiencing loss of taste or smell?: No [facility] Anesthesia Checklist Patient Identification Patient Identification: Arm Band and Family Structural Data Admitted From: Home Planned Operative Procedure/s: Endoscopic CTR Consent for Planned Operative Procedure(s) Verified: Yes Verified Documents: Surgical Consent and History and Physical NPO Status Verified Time NPO: 00:00 Additional verifications Patient : No Anesthesia Reactions: No Hx Blood Transfusions: No Blood Transfusion Reaction: No Cephalosporin Allergy: No Previous Colonoscopy: Yes Airway Assessment Mallampati Score:: Class II C-Spine Mobility Assessed: Yes TMJ Mobility Assessed: Yes Dentition: Good Dentition Neurological Assessment Level of Consciousness: Awake, Alert, Appropriate and Follows Commands Hx Seizures: No Numbness or tingling in extremities: No Anesthesia Plan Anesthesia Risk discussed: Yes ASA Class: II Anesthesia Type: MAC Preoperative Comments Pre-Operative Comments: Vascular angina, Hypertension. IBS. Chronic diarrhea.
[2024-10-13] MEDS: CLINDAMYCIN PHOSPHATE/D5W 900 MG/50 ML PIGGYBACK 100 MG IV (07:36)
[2024-10-13] MEDS: LIDOCAINE 1% W/EPI 1:100,000 20ML VIAL 20 ML (07:52)
--- NOTE | 2024-10-13 08:10 | EXP.OP.NOTE ---
Date of procedure: 10/13/24 Pre-op Diagnosis:: Right carpal tunnel syndrome Post-op Diagnosis:: Same Procedure performed:: Right endoscopic carpal tunnel release Surgeon:: Uzair German DO Pensions Retirement Plan Specialist(s):: SHERRILL coats SUPERVISOR MAJOR APPLIANCE ASSEMBLY:: Terry Woo Anesthesia: MAC and local Estimated blood loss (mL): 0 Operative findings:: See dictation Operative note:: Patient identified preoperatively. Right wrist marked with yes and my initials. Transported operative suite. Given sedation player placed upon the operating bed with a hand table. Right upper extremity prepped and draped in normal sterile fashion. Once prepped and draped final operative timeout performed to identify proper patient procedure and extremity. Everyone involved in the case agreed. No counter indications beginning. Did receive preoperative antibiotics clindamycin. Marking pen was used to jp plan incision over the volar wrist. Esmarch was used to exsanguinate the extremity pneumatic tourniquet was inflated to 250 mmHg. Skin knife was used incise the skin. Retractors were placed and careful dissection was taken down to identify the most proximal aspect the transverse carpal ligament once identified the small dilator followed by the larger dilator followed by the 4.0 mm sled was placed into the carpal tunnel. Camera was introduced in the carpal tunnel and transverse carpal ligament clearly seen superiorly within the camera. Hooked probe was used to identify the most distal aspect the transverse carpal ligament. Rasp was used to remove the soft tissue from the undersurface. Then a hook blade from the segue endoscopic carpal tunnel release system was utilized to release the transverse carpal ligament. This was done in its entirety and directly visualized. Irrigation of the wound performed. Wound closed with Monocryl followed by hand dressing patient waken sedation taken recovery in stable condition Condition: stable Disposition: PACU Complications:: None apparent
[2024-10-13 08:11] VITALS: BP 141/83; PULSE 59; RESP 16; TEMP 36.6; O2SAT 98
[2024-10-13 08:26] VITALS: BP 135/88; PULSE 56; RESP 16; O2SAT 96
[2024-10-13 08:41] VITALS: BP 139/64; PULSE 54; RESP 16; O2SAT 96
[2024-10-13 08:56] VITALS: BP 123/61; PULSE 55; RESP 16; O2SAT 97
[2024-10-13 16:02] LABS: POC Glucose,Bedside 139 (70-110)
== END 2024-10-13 08:56 | disposition home or self-care (01) ==
PROVIDERS: PCP Nurse Practitioner; Visit Provider Orthopaedic Surgery
PROC: (CPT 64721; principal; 2024-10-13 07:30)
DX: G56.01 Carpal tunnel syndrome, right upper limb (principal); E11.9 Type 2 diabetes mellitus without complications
CPT/HCPCS: 29848; 82962; J0736; J1100; J2250; J2405; J3010

== ENCOUNTER 2024-11-22 11:56 | Outpatient (CLI) | payer MEDICARE, OTHER, SELFPAY | END 2024-11-22 23:59 | disposition home or self-care (01) | LOC: LAB.DROPOF 11-23 09:11 | PROVIDERS: PCP Nurse Practitioner; Visit Provider Nurse Practitioner | DX: N39.0 Urinary tract infection, site not specified (principal) | CPT/HCPCS: 87086; 87088 ==

== ENCOUNTER 2024-12-14 14:00 | Outpatient (CLI) | payer MEDICARE, OTHER, SELFPAY | END 2024-12-14 23:59 | disposition home or self-care (01) | LOC: LAB.DROPOF 12-15 10:59 | PROVIDERS: PCP Family Medicine; Visit Provider Family Medicine | DX: R30.0 Dysuria (principal) | CPT/HCPCS: 87077; 87086; 87088 ==

== ENCOUNTER 2025-03-01 14:00 | Outpatient (CLI) | payer MEDICARE, OTHER, SELFPAY ==
--- OUTSIDE RECORDS SUMMARY | 2018-03-27 14:44 | XMS_ITS | Continuity of Care Document ---
Author Organization [facility] Address [address] [place] [address] Phone Care Team Providers Care Golf Ball Trimmer Name Role Phone Jamshid Monique MD Unavailable Unavailable Allergies, Adverse Reactions, Alerts Substance Reaction Status Criticality OXYTETRACYCLINE HCL Active No Infor mation oxytetracycline Active No Informati on aspirin Active No Information CEPHALEXIN MONOHYDRATE Active No In formation trimethoprim Active No Information sulfamethoxazole Active No Informat ion NSAIDS (Non-Steroidal Anti-Inflammatory Drug) Active No Information OXYCODONE TEREPHTHALATE Active No I nformation OXYCODONE HCL Active No Information aspirin Active No Information codeine Active No Information Penicillins Active No Information Medications Medication Instructions Dosage Effective Dates (start - stop) Status Comments telmisartan 80 mg tablet take 1 tablet by oral route every day 80 MG - Active Levoxyl 112 mcg tablet take 1 tablet by oral route every day 112 MCG - Active Tylenol 325 mg tablet take 1 tablet by o ral route every 4 hours as needed 325 MG - Active acebutolol 200 mg capsule take 2 capsule by oral route 2 times every day 400 MG - Active fluticasone 50 mcg/actuation Nasal [place], Susp spray 1 spray by intranasal route every day in each nostril - Active Proventil HFA 90 mcg/actuation Aerosol Inhaler inhale 2 puff by inhalation route every 4 - 6 hours as needed - Active Qvar 40 mcg/actuation Metered Aerosol Oral Inhaler inhale 2 puff by inhalation route 2 times every day - Active levothyroxine 112 mcg tablet take 1 tablet (112MCG) by oral route every day 112 MCG - Active Singulair 10 mg Tab take 1 tablet (10MG) by oral route every day in the evening 10 MG - Active oxazepam 10 mg Cap take 1 capsule (10MG ) by oral route every day 10 MG - Active Procedures Procedure Date OFFICE/OUTPATIENT VISIT, EST Fundus Photography With Adeel stanley OCT No Charge Uni Or Bi OFFICE/OUTPATIENT VISIT, EST OFFICE/OUTPATIENT VISIT, EST Eye Exam Established Patient Comprehensi ve 1 Or More Visits Eye Exam Established Patient Comprehensi ve 1 Or More Visits Eye Exam Established Patient Comprehensi ve 1 Or More Visits Eye Exam Established Patient Comprehensi ve 1 Or More Visits OFFICE/OUTPATIENT VISIT, EST EYE EXAM WITH PHOTOS EYE EXAM WITH PHOTOS EYE EXAM & TREATMENT EYE EXAM WITH PHOTOS OCT No Charge EYE EXAM, NEW PATIENT Advance Directives Directive Yes / No Effective Date File Name No Information Encounters Encounter Description Practice Location Reason(s) For Visit Diagnoses Date Provider Providers Copied on Encounter [facility], [address] [place], [address], [place] tel:+ [phone] [place] No Information 8 Eneida Breen. [address] [place], [place], [id number] , [place]. tel:[phone] OFFICE/OUTPA TIENT VISIT, EST [facility], [address] [place], [address], [place] tel:+ [phone] [facility] [address] Flashes of light (chief complaint) PVD (posterior vitreous detachment), both eyesChorioretinal disorders in diseases classified elsewhere 8 Gardner Pratima. [address] [facility], [facility] [address], [place], [address], [place]. Referring Provider: No Ref Doc No Referring Doc. OFFICE/OUTPA TIENT VISIT, EST [facility], [address] [place], [address], [place] tel:[phone] [facility] [address] 1 month hypertropia follow-up (chief complaint) Cortical age-related cataract of both eyesHistoplasmosis capsulati, unspecifiedPresumed ocular histoplasmosis syndrome of both eyesPVD (posterior vitreous detachment), both eyesHypertropia of right eyeVertical strabismus, left eye Sep-0 7 Renetta Breen. [address] [place] [address], [address], [place], [place], [id number] , . tel: [phone] Referring Provider: No Ref Doc No Referring Doc. OFFICE/OUTPA TIENT VISIT, EST [facility], [address] [place], [address], [place] tel: [phone] [facility] [address] blurry vision (chief complaint)do uble vision (chief complaint)fl oaters (chief complaint) Cortical age-related cataract of both eyesHistoplasmosis capsulati, unspecifiedPVD (posterior vitreous detachment), both eyesHypertropia of right eyeVitreous degeneration, left eye Feb- 7 Renetta Breen. [address] [place] [address], [address], [place], [place], [id number] , [place]. tel: [phone] Referring Provider: No Ref Doc No Referring Doc. [facility], [address] [place], [address], [place] tel: [phone] LEANNE Atkins blurry vision (chief complaint)fl oaters (chief complaint) Histoplasmosis capsulati, unspecifiedCortical age-related cataract of both eyesPresumed ocular histoplasmosis syndrome of both eyesPVD (posterior vitreous detachment), both eyesPosterior subcapsular polar age-related cataract, right eye Oct- 6 Renetta Breen. [address] [place] [address], [address], [place], [place], [id number] , [place]. tel:[phone] Referring Provider: No Ref Doc No Referring Doc. [facility], [address] [place], [address], [place] tel: [phone] [facility] Cortical age-related cataract of both eyesPVD (posterior vitreous detachment), both eyesPresumed ocular histoplasmosis syndrome of both eyesChorioretinal disorders in diseases classified elsewhere 6 Renetta Breen. [address] [place] [address] Road, [address], [place], [place], [address] , [place]. tel:[phone] [facility], [address] [place], [address], [place] tel:[phone] [facility] blurry vision (chief complaint)fl oaters (chief complaint) No Information 5 Renetta Breen. [address] [place] [address] Road, [address], [place], [place], [address] , [place]. tel: [phone] Referring Provider: No Ref Doc No Referring Doc. [facility], [address] [place], [address], [place] tel: [phone] [facility] No Information 4 Renetta Breen. [address] [place] [address] Road, [address], [place], [place], [id number] , [place]. tel: [phone] Referring Provider: No Ref Doc No Referring Doc. [facility], [address] [place], [address], [place] tel: [phone] [facility] No Information 3 Renetta Breen. [address] [place] [address] Road, [address], [place], [place], [id number] , [place]. tel: [phone] Referring Provider: Jamshid Stanley, [address] [place] [address] Road [address], [place], [address] . tel:[phone] OFFICE/OUTPA TIENT VISIT, EST [facility], [address] [place], [address], [place] tel: [phone] [facility] No Information 2 Renetta Breen. [address] [place] [address] Road, [address], [place], [place], [address] , [place]. tel: [phone] Referring Provider: Jamshid Stanley, [address] [place] [address] Road [address], [place], [address] . tel:[phone] [facility], [address] [place], [address], [place] tel: [phone] [facility] [address] No Information 2 Eneida Breen. [address] [facility], [place], [place], [id number] , . tel: [phone] Referring Provider: Jamshid Stanley, [address], [place], [address] . tel:[phone] [facility], [address] [facility], [place], [place], [facility], tel: [phone] [facility] No Information 2 Renetta Breen. [address], [address], [place], [place], [id number] , . tel: [phone] Referring Provider: Jamshid Perez, [address] [facility], [place], [address] . tel:[phone] Family History Family Member Type Diagnosis Age At Onset Problem (finding) No family history of Re tinal disease Brother Problem (finding) Maternal history of jagdish betes mellitus Sister Problem (finding) cataract Sister Problem (finding) Maternal history of jagdish betes mellitus Problem (finding) No family history of Gl aucoma Mother Problem (finding) cataract Grandmother Problem (finding) Cancer Mother Problem (finding) hypertension Sister Problem (finding) hypertension Payers Payer name Insurance type Covered democrat ID Authoriza damien(s) [facility] Healthcare Supplement [id number] Social History Type Description Quantity Date Captured Comments Sex Female Smoking Status No Information Chief Complaint And Reason For Visit No Information Reason For Referral Reason For Referral No Information History Of Present Illness Encounter Date Complaint History Of Prese nt Illness Flashes of light The 72 year old female presents for evaluation of Flashes of light in the right eye. The patient describes it as decrease in both near and distance vision. It happens frequently. The patient feels it is moderate. The condition is described as blurry vision. In addition, it is associated with driving. When driving at night the patient see's double when looking at lights and head lights. It is difficult reading road signs and also reading for a long period of time. Patient denies eye pain. Associated symptoms include: floaters. 1 month hypertropia follow-up Th e 71 year old female presents for evaluation of 1 month hypertropia follow-up in the right eye. Patient states she got the Fresnel prism about 10 days after her last visit. She states the double vision has improved. She is still getting intermittent double vision when she holds her head a certain way. She states her vision is blurry at a distance. She states she is having blurry and double vision when she is looking down at something up close. She states her best vision up close is when she closes her right eye. floaters The patient is p resent for evaluation of floaters in the left eye. It started about 3 month(s) ago. The onset was sudden. The symptom is all of the time. Patient denies flashes. blurry vision The 71 year old female presents for evaluation of blurry vision in the right and left eyes. It started about 3 month(s) ago. The onset was sudden. The patient describes it as decrease in both near and distance vision. It happens all of the time. double vision The patient is p resent for evaluation of double vision in the right and left eyes. It started about 3 month(s) ago. The onset was sudden. Patient states she only notices the double vision when she is looking down trying to reading up close. blurry vision The 70 year old female presents for evaluation of blurry vision in the right and left eyes. The onset was sudden. The patient describes it as decrease in both near and distance vision. It happens all of the time. The patient feels it is worsening. Patient states she had shingles in May 2015. She states she feels her vision has not been well since then. floaters The patient is p resent for evaluation of floaters in the right and left eyes. The onset was sudden. It happens all of the time. Patient denies flashes. blurry vision The 69 year old female presents for evaluation of blurry vision in the right and left eyes. It started about 1 year(s) ago. The onset was gradual. The patient describes it as decrease in near vision. It happens all of the time. floaters The patient is p resent for evaluation of floaters in the right eye. The onset was sudden. It happens intermittently. The patient feels it is stable. Patient denies flashes. Functional Status Date Functional Assessmen t No Information Instructions Date Instruction Sobeida Joychastity solis - patient noticing f lashes OD. PVD OU noted previously. No signs of retinal breaks or detachment. Follow up with general for continued care and retina PRN Related to See impression details - Return - PRN Related to See i mpression details - Consult Dr. Frantz Chester at [facility] Related to See impression details - Trial of vertical prism OD helped in primary position, this was explaned to patient before. She moves her head and eyes around and says she still sees double, worse when head is tilted to the right. Says she can not read or see to drive with prism in glasses. Recommend strabismus consult with Dr. Frantz Chester at [facility]. Right hypertropia. Related to See impression details - Return - 1 month Related to Se e impression details - 6 PD BD Fresnel pr ism over RT lens. If headache persists may need imaging. Return in 1 month. Related to See impression details - Discussed cataract s with patient. Patient feels cataracts are not significantly affecting their vision and chooses not to proceed with cataract surgery. Related to See impression details - Return - 1 year Related to See impression details - Patient is aware o f glasses prescription change would likely improve vision. Patient given a prescription for new glasses. 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 Old Educaational mataerial provided: Parimary diagnosis Discussed cataracts with patient. Patient feels cataracts are not significantly affecting their vision and chooses not to proceed with cataract surgery. Educational materials provided:Primary Diagnosis. Return to clinic in 1 year. Related to See impression: general plan - CATARACT, SENILE- HISTOPLASM CAPSUL RETINA- VITREOUS DEGENERATION - Discussed cataracts with patient. Patient feels cataracts are not significantly affecting their vision and chooses not to proceed with cataract surgery. Educational materials provided:Primary Diagnosis. Patient is aware of glasses prescription change would likely improve vision. Patient given a prescription for new glasses. Educational materials provided:Primary Diagnosis. Return to clinic in 1 year. 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 Discussed smoking as separate risk factor and recommended abstinence from smoking. F/U PCP for assistance as needed. 3. Instructed how to check Amsler grid weekly. Patient to call for urgent evaluation if decreased vision or new Amsler changes. Related to POHS SENILE NUCLEAR CATAR ACT OU - Discussed natural history of cataract progression and associated visual compromise. Facilitated evaluation and management by cataract surgeon. Related to SENILE NUCLEAR CATARACT Dry Eye Syndrome OU - ATS QID OU AND LIBERALLY PRN. Discussed signs/symptoms of dry eyes, including pruritus, pain, foreign-body sensation, and paradoxical excessive tearing. Instructed patient to use artificial tears/lubricating eye ointments liberally for symptomatic relief. Related to Dry Eye Syndrome PVD OD- no breaks or tears- ANTICIPATE PVD OS IN 1 YEAR - RTC URGENTLY PRN SYMPTOMS OF PVD/RT/RD OS. Symptoms of retinal tears, retinal detachment, vitreous detachment, and vitreous hemorrhage were discussed with the patient. The patient was instructed to call urgently if any of these symptoms are observed. Related to PVD - Return in PRN as n eeded with Jamshid Monique MD Related to POHS HISTOPLASM CAPSUL RE RAO - Hx Positive histo with lung calcium childhood. Past hx pohs. Aug 2009 flashes od, December 2009 same and od feels tight. Related to HISTOPLASM CAPSUL RETINA - Ret consult Related to HISTO PLASM CAPSUL RETINA Assessments Type Assessment Date No Information Patient Care Teams Name Effective Dates (start - stop) Status Members No Information
[2025-03-01 19:07] LABS: Hematocrit 38.4 % (37.0-47.0); Hemoglobin 12.5 g/dL (12.2-16.2); Immature Granulocytes % 0.5 %; Mean Corpuscular HGB Conc 32.6 g/dL (31.8-35.4); Mean Corpuscular Hemoglobin 30.0 pg (27.0-31.2); Mean Corpuscular Volume 92.3 fl (81-99); Nucleated Red Blood Cells % 0 %; Platelet Count 262 K/mm3 (142-424); Red Blood Count 4.16 M/mm3 (4.20-5.40); Red Cell Distribution Width-SD 43.1 fL; White Blood Count 7.7 K/mm3 (4.8-10.8)
[2025-03-01 20:10] LABS: Albumin Level 4.3 g/dl (3.5-5.0); Chloride 100 mmol/L (98-107); Potassium 3.9 mmoL/L (3.5-5.1); Sodium 136 mmol/L (136-145)
[2025-03-01 20:13] LABS: Alanine Aminotransferase 16 U/L (12-78); Albumin/Globulin Ratio 1.9 (1.1-1.8); Alkaline Phosphatase 91 U/L (38-126); Anion Gap 10.9 mEq/L (5-15); Aspartate Amino Transferase 20 U/L (14-36); Bilirubin,Total 0.6 mg/dl (0.2-1.3); Blood Urea Nitrogen 18 mg/dl (7-17); Calcium 9.3 mg/dl (8.4-10.2); Carbon Dioxide 29 mmol/L (22.0-30.0); Creatinine,Serum 0.70 mg/dl (0.52-1.04); Estimated Glomerular Filt Rate 81 ml/min (>60); GFR (African American) 98 ML/MIN (>60); Globulin 2.3 g/dL (1.3-3.2); Glucose 103 mg/dl (74-100); Total Protein,Serum 6.6 g/dl (6.3-8.2)
--- OUTSIDE RECORDS SUMMARY | 2025-03-02 10:55 | XMS_ITS | Encounter Summary ---
Author Organization [employer] ([place], [place], [place], [place]) Address [address] [place] [address] Care Team Providers Care Worm Grower Name Role Phone Matheus Boggs MD Primary Care Provider + [phone] Encounter Details Date Type Department Care Team (Late st Contact Info) Description 02/01/[address] [facility] [place] Family [place] [facility] [place] [address] ProviderCristopher MD [address] [place] [address] Social History Tobacco Use Types Packs/Day Years Used Date Smoking Tobacco: Never Assessed Comments Unknown Sex and Gender Information Value Date Recorded Sex Assigned at Female 12/04/2023 11:21 PM CDT Legal Sex Female 7:28 PM CDT Gender Identity Female 12/04/2023 11:21 PM CDT Sexual Orientation Not on file documented as of this encounter Miscellaneous Notes * Cerner Conversion Note - Historical ProviderMD - 02/01/2020 12:09 PM CDT Discharge Summary, PT Entered On: 02/01/2020 12:09 EDT Performed On: 02/01/2020 12:09 EDT by EDU BARNES PT Discharge Summary Discharge Summary Provider Notified : Nursing, Referring provider Reason for Discharge : Discharged from hospital, All goals met Discharge Summary Comment, PT : Pt has currently met 3/3 goals for therapy and is appropriate for discharge from therapy services s/p R TKA. Pt's current R knee ROM is 0-102 degrees. Pt is ambulatory with SBA x 150ft with RWx and performs all bed mobility and sit-stand transfer with a rolling walker and independence/modified independence. Pt was issued an HEP for continued RLE ROM and strengthening. Pt thoroughly educated about emphasizing ROM tasks and use of Bone Foam during acute phase of TKA rehab. EDU BARNES, PT - 02/01/2020 12:09 EDT Electronically signed by [facility] Conversion Housing Assistant Cerner at 11/06/2022 12:53 PM CDT documented in this encounter Plan of Treatment Not on file documented as of this encounter Visit Diagnoses Not on filedocumented in this encounter Care Teams Worm Grower Relationship Specialty Start Date End Date Matheus Boggs MD [address] [place] [facility] [address] [place] [address] PCP - General Family Medicine 09/05/22 documented as of this encounter
--- OUTSIDE RECORDS SUMMARY | 2025-03-02 10:55 | XMS_ITS | Encounter Summary ---
Author Organization [employer] ([place], [place]) Address [address] [place] [address] Care Team Providers Care Road Oiler Name Role Phone Matheus Boggs MD Primary Care Provider + [phone] Encounter Details Date Type Department Care Team (Late st Contact Info) Description 11/06/2020 Transcribed Document [facility] [place] Family Medicine [facility] [place] [address] ProviderCristopher MD [address] [place] [address] Social History Tobacco Use Types Packs/Day Years Used Date Smoking Tobacco: Never Assessed Comments Unknown Sex and Gender Information Value Date Recorded Sex Assigned at Female 12/04/2023 11:21 PM CDT Legal Sex Female 7:28 PM CDT Gender Identity Female 12/04/2023 11:21 PM CDT Sexual Orientation Not on file documented as of this encounter Miscellaneous Notes * Cerner Conversion Note - Cristopher ProviderMD - 11/06/2020 9:18 AM CDT Spiritual Care Short Form Entered On: 11/06/2020 16:42 EDT Performed On: 11/06/2020 9:18 EDT by ERIC UNDERWOOD General , Spiritual Care Spiritual Care Referred by : Patient Reason for Visit : Initial Ministry Provided to : Patient Intervention/Comment/Summary Points : PreSurgery visit; Provided reflective listening and pastoral prayer; Ms. Walker expressed gratitude Shinto Preference : [facility] ([employer]) ERIC UNDERWOOD - 11/06/2020 16:42 EDT Electronically signed by Kee, [facility] Conversion Draw String Knotter Cerner at 11/06/2022 1:13 PM CDT documented in this encounter Plan of Treatment Not on file documented as of this encounter Visit Diagnoses Not on filedocumented in this encounter Care Teams Road Oiler Relationship Specialty Start Date End Date Matheus Boggs MD [address] [facility] [address] [place] [address] PCP - General Family Medicine 09/05/22 documented as of this encounter
--- OUTSIDE RECORDS SUMMARY | 2025-03-02 10:55 | XMS_ITS | Encounter Summary ---
Author Organization [employer] ([place], [place], [place], [place]) Address [address] [place] [address] Care Team Providers Care Maintenance Service Technician Name Role Phone Matheus Boggs MD Primary Care Provider + [phone] Encounter Details Date Type Department Care Team (Late st Contact Info) Description 11/07/2020 Transcribed Document [facility] [place] [facility] [place] [address] ProviderCristopher MD [address] [place] [address] Social History Tobacco Use Types Packs/Day [...] Cerner Conversion Note - Cristopher ProviderMD - 11/07/2020 12:00 AM CDT Pain Assessment Entered On: 11/07/2020 3:33 EDT Performed On: 11/07/2020 1:46 EDT by Virginia Bond RN Intervention Information: acetaminophen Performed by Virginia Bond RN on 11/07/2020 00:46:00 EDT acetaminophen,1000mg Oral Pain Assessment Pain Assessment : Follow-up assessment Pain Scale Goal : 4 Pain Scale Used : 0-10 Scale Location : Knee, left Onset : Acute Quality : Aching Pain Radiation : No Pain Worsened by : None Pain Improved by : Cold therapy, Immobilization Pain Intervention, Drug : Medicated Pain Intervention, Non-Drug : Cold therapy, Positioning Opioid Adverse Effects : Not applicable Pain Improved by Intervention : No Virginia Bond RN - 11/07/2020 3:31 EDT Pain Scale Intensity : 3 Virginia Bond RN - 11/07/2020 3:31 EDT Image 4 - Images currently included in the form version of this document have not been included in the text rendition version of the form. Electronically signed by Kee [facility] Conversion Kosher Butcher Cerner at 11/06/2022 1:11 PM CDT documented in this encounter Plan of Treatment Not on file documented as of this encounter Visit Diagnoses Not on filedocumented in this encounter Care Teams Maintenance Service Technician Relationship Specialty Start Date End Date Matheus Boggs MD [address] [place] [address] [place] [address] PCP - General Family Medicine 09/05/22 documented as of this encounter
--- OUTSIDE RECORDS SUMMARY | 2025-03-02 10:55 | XMS_ITS | Encounter Summary ---
Author Organization [facility] Address [address] [place] [address] Care Team Providers Care Tip Cutter Name Role Phone Devin Mendoza MD Primary Care Provider Matheus Boggs MD Primary Care Provider Mitchell Oliva MD Unavailable [phone] Encounter Details Date Type Department Care Team (Late st Contact Info) Description 02/15/2010 Abstract [facility] Physicians - Primary Care, [address] [place] [phone] Devin Mendoza MD [address] [place] [address] [place] [address] Social History Tobacco Use Types Packs/Day Years Used Date Smoking Tobacco: Never Alcohol Use Standard Drinks/Week Comments No 0 (1 standard drink = 0.6 oz pur e alcohol) Comments Unknown Sex and Gender Information Value Date Recorded Sex Assigned at Not on file Legal Sex Female 5:04 PM EST Gender Identity Not on file Sexual Orientation Not on file documented as of this encounter Plan of Treatment Not on file documented as of this encounter Visit Diagnoses Not on filedocumented in this encounter Care Teams Tip Cutter Relationship Specialty Start Date End Date Devin Mendoza MD PCP - General 04/29/08 09/13/14 Matheus Boggs MD [address] [place] [address] PCP - General Family Medicine 09/14/14 Mitchell Oliva MD [address] [place] [address] [address] [place] [address] General Surgery 07/28/22 documented as of this encounter
--- OUTSIDE RECORDS SUMMARY | 2025-03-02 10:55 | XMS_ITS | Encounter Summary ---
Author Organization [employer] ([place], [place], [place], [place]) Address [address] [place] [address] Care Team Providers Care Head Cd Reactor Operator Name Role Phone Michelet Boggs MD Primary Care Provider + [phone] Encounter Details Date Type Department Care Team (Late st Contact Info) Description 02/01/2020 Transcribed Document [facility] [place] Family Medicine [address] [place] [address] ProviderCristopher MD [address] [place], [place] [id number] Social History Tobacco Use Types Packs/Day Years Used Date Smoking Tobacco: Never Assessed Comments Unknown Sex and Gender Information Value Date Recorded Sex Assigned at Female 12/04/2023 11:21 PM CDT Legal Sex Female 7:28 PM CDT Gender Identity Female 12/04/2023 11:21 PM CDT Sexual Orientation Not on file documented as of this encounter Miscellaneous Notes * Cerner Conversion Note - Cristopher ProviderMD - 02/01/2020 5:16 PM CDT Initial Discharge Planning Entered On: 02/01/2020 17:20 EDT Performed On: 02/01/2020 17:16 EDT by NAGI TAIPA RN-Transition Rn Initial Assessment I Previously Documented Living Environment : No qualifying data available. Living Situation : Home Patient Lives With : Spouse Is the Patient a Caregiver at Home? : No Emergency Contact #1 : Lili White Emergency Contact #1 Emergency Contact #1 Relationship : dtr Emergency Contact #2 : Fay Reese Emergency Contact #2 Emergency Contact #2 Relationship : dtr Enter Doctors Name : MICHELET BOGGS (REF) Marycarmen Does Patient have PCP Listed? : Yes NAGI TAPIA, RN-Transition Rn - 02/01/2020 17:16 EDT Initial Assessment II Sensory and Motor Deficits : None Current Home Treatments and Equipment : None Does the Patient have a Floor to SNF Benefit? : No NAGI TAPIA RN-Transition Rn - 02/01/2020 17:16 EDT Discharge Needs I Anticipated Discharge Date : 02/01/2020 EDT Anticipated Discharge To, CM : Home with home health Current Home Treatment/Equipment : Current Home Treatment/Equipment No qualifying data available. Post Acute/Home Treatments : Bedside commode, Walker Documentation Status Complete : Yes NAGI TAPIA RN-Transition Rn - 02/01/2020 17:16 EDT Discharge Needs II Professional Skilled Services : Professional Skilled Services No qualifying data available. Needs Assistance with Transportation : No Discharge Options Discussed with Patient : DME, Home Health NAGI TAPIA RN-Transition Rn - 02/01/2020 17:16 EDT Narrative Note Narrative Note : 74yo female pt s/p RTKA. Met with pt and daughter at bedside this am during MDR. FRW and BSC obtained from [employer] and have been delivered. Referral sent to [facility] (chose in JA class) via [employer] and confirmed acceptance with intake. No other CM needs identified. NAGI TAPIA RN-Transition Rn - 02/01/2020 17:16 EDT Electronically signed by Milo Sweet Conversion Cardiothoracic Anesthesia Technician Pollo at 11/06/2022 12:50 PM CDT documented in this encounter Plan of Treatment Not on file documented as of this encounter Visit Diagnoses Not on filedocumented in this encounter Care Teams Head Cd Reactor Operator Relationship Specialty Start Date End Date Michelet Boggs MD [address] [facility] [address] [place] [phone] PCP - General Family Medicine 09/05/22 documented as of this encounter
--- OUTSIDE RECORDS SUMMARY | 2025-03-02 10:55 | XMS_ITS | Encounter Summary ---
Author Organization [employer] ([place], [place], [place], [place]) Address [address] [place] [address] Care Team Providers Care Classroom Teacher Name Role Phone Matheus Boggs MD Primary Care Provider + [phone] Encounter Details Date Type Department Care Team (Late st Contact Info) Description 11/07/2020 Transcribed Document [facility] [place] [facility] [place] [address] ProviderCristopher MD [address] [place] [address] Social History Tobacco Use Types Packs/Day [...] Cerner Conversion Note - Historical ProviderMD - 11/07/2020 12:00 PM CDT Discharge Summary, PT Entered On: 11/07/2020 12:00 EDT Performed On: 11/07/2020 12:00 EDT by EDU BARNES PT Discharge Summary Discharge Summary Provider Notified : Nursing, Referring provider Reason for Discharge : Discharged from hospital, All goals met Discharge Summary Comment, PT : Pt has currently met 3/3 goals for physical therapy and is appropriate for discharge from acute care rehab. Pt's current L knee ROM is 0-96 degrees. Pt is modified independent for bed mobility and transfers with RWx, and is ambulatory x 150ft with RWx and SBA. Pt has ascended/descended 1 step with a RWx requiring only CGA-SBA to do so safely. Pt has participated in post operative TKA rehab exercises and was issued HEP for continued strengthening and ROM training. Pt thoroughly educated about emphasizing ROM and limiting gait distance, and use of Bone Foam as often as possible with a minimum of 1 hour TID. EDU BARNES, PT - 11/07/2020 12:00 EDT documented in this encounter Plan of Treatment Not on file documented as of this encounter Visit Diagnoses Not on filedocumented in this encounter Care Teams Classroom Teacher Relationship Specialty Start Date End Date Matheus Boggs MD [address] [place] [facility] [address] [place] [address] PCP - General Family Medicine 09/05/22 documented as of this encounter
--- OUTSIDE RECORDS SUMMARY | 2025-03-02 10:55 | XMS_ITS | Encounter Summary ---
Author Organization [employer] ([place], [place], [place], [place]) Address [address] [place] [address] Care Team Providers Care Antique Furniture Repairer Name Role Phone Matheus Boggs MD Primary Care Provider + [phone] Encounter Details Date Type Department Care Team (Late st Contact Info) Description 01/31/2020 Transcribed Document [facility] [place] Family Medicine [facility] [place] [address] ProviderCristopher MD [address] [place] [address] Social History Tobacco Use Types [...] Cerner Conversion Note - Cristopher ProviderMD - 01/31/2020 1:45 PM CDT Meds to Bed Enrollment Entered On: 02/01/2020 7:13 EDT Performed On: 01/31/2020 13:45 EDT by Vahid Strickland PHARMACY TECH LEAD Meds to Bed Enrollment Patient Enrollment Decision: : Yes/enroll in meds to bed program Vahid Strickland PHARMACY TECH LEAD - 02/01/2020 7:13 EDT documented in this encounter Plan of Treatment Not on file documented as of this encounter Visit Diagnoses Not on filedocumented in this encounter Care Teams Antique Furniture Repairer Relationship Specialty Start Date End Date Matheus Boggs MD [address] [facility] [address] [place] [phone] PCP - General Family Medicine 09/05/22 documented as of this encounter
--- OUTSIDE RECORDS SUMMARY | 2025-03-02 10:55 | XMS_ITS | Encounter Summary ---
Author Organization [employer] ([place], [place], [place], [place]) Address [address] [place] [address] Care Team Providers Care Slusher Operator Name Role Phone Matheus Boggs MD Primary Care Provider + [phone] Encounter Details Date Type Department Care Team (Late st Contact Info) Description 11/07/[address] [facility] [place] Medicine [facility] [place] [address] ProviderCristopher MD [address] [place] [address] Social History Tobacco Use Types Packs/Day [...] Conversion Note - Cristopher ProviderMD - 11/07/2020 7:14 AM CDT Patient: MARY WALKER V Age: 75 Years Sex: Female : 1945 Admit Date 11/06/2020 06:53 Discharge Date 11/07/2020 Primary Care Provider MATHEUS BOGGS (REF) T Discharge Diagnosis History of knee replacement 11/07/2020 Z96.659 ICD-10-CM Procedures SN - Proc - Procedure: Knee Total Joint Replacement (11/06/20 10:28:37) Reason for Hospitalization Patient suffers from end-stage arthritis of the left knee. Patient had failed conservative measures and was ultimately offered total knee arthroplasty. Understanding risks benefits and alternatives to care patient gave written consent for the aforementioned procedure. Hospital Course Patient was taken to the operating room on date of admission where they underwent the aforementioned procedure without complication. They were then transferred to the floor for postoperative care including PT & OT, consultation of hospitalist for medical care, and discharge planning by nurse navigator/case management. Vital Signs T: 36.6 ??C TMIN: 36.3 ??C TMAX: 36.7 ??C HR: 59(Monitored) RR: 16 BP: 122/61 SpO2: 99% HT: 153.67 cm WT: 80.68 kg BMI: 34.2 Oxygen Settings (Last) Oxygen Therapy Mode: Room air (11/06/20 20:00:00) Oxygen Flow Rate: 2 Liter/Min (11/06/20 13:14:00) Physical Exam The dressing is clean dry secure. The operative extremity is neurovascularly intact with the exception of that which is attributed to peripheral nerve block. Compartments are soft. Range of motion with physical therapy was 0???94. Discharge Disposition DC home with home health. Discharge Follow Up SHWETA DANGELO PA-ORMarycarmen - 03:[address] Sin Mcnamara, urology Discharge Medications (14) Active acebutolol 200 mg, Oral, BID Align 4 mg oral capsule 4 mg = 1 Cap, Oral, Daily Arnuity Ellipta 100 mcg, PRN, Inhalation, [id number] aspirin 81 mg oral delayed release tablet 81 mg = 1 Tab, Oral, BID cefadroxil 500 mg oral capsule 500 mg = 1 Cap, Oral, Q12H Colace 100 mg oral capsule 100 mg = 1 Cap, PRN, Oral, BID fexofenadine 180 mg, Oral, Daily fluticasone 50 mcg/inh nasal spray 2 [place], PRN, Nasal, BID hydrochlorothiazide-irbesartan 12.5 mg-150 mg oral tablet 1 Tab, Oral, Daily Levoxyl 125 mcg, Oral, Daily liothyronine 5 mcg, Oral, Daily nitrofurantoin macrocrystals 50 mg oral capsule 50 mg = 1 Cap, Oral, At Bedtime Singulair 10 mg, Oral, At Bedtime Ventolin HFA 2 Puff, PRN, Inhalation, Q4H Code Status Start: 11/06/20 12:55:00 EDT, Full Code, Continuous Order Condition on Discharge Stable Consulting Physicians MYA PHILLIPS MD-ANS DOODNAUTH, DAVANAND C, MD-INT Current Diet Order Diet, Adult - Ordered -- Start: 11/06/20 12:55:00 EDT, Regular Diet Patient Discharge Summary Orders Patient is weightbearing as tolerated. Patient should transition from a walker to a cane at the discretion of physical therapy. However the patient should minimize ambulation, and focus on copious ice and elevation to reduce swelling. The range of motion goal for first follow-up should be a minimum of 0-90??. Bilateral thigh-high SAMIA hose should be worn 21+ hours per day for 6 weeks for DVT prophylaxis. Chemoprophylaxis for DVT (see medlist)times 4 weeks. Dressings remain in place for 7-10 days, during which time the patient may shower. This provided the margins of the dressing are intact. Dressings then can be removed and incision left open to air. Any wound drainage should be reported to the orthopedic office. Continuous use of cryotherapy as needed for pain and swelling. Recommended as one hour of every 3. Recommend referral to urology, Dr. Mcnamara. Pending Labs In Process SENDOUT REPORT [id number], [id number], RT - Routine, 11/06/20 11:08:00 EDT Pathology Tissue Request [id number], [id number], 11/06/20 11:08:00 EDT, Collected, RT - Routine, 11/06/20 12:22:23 EDT, IGOR ACEVEDO, [employer], Specimen Type: AP Specimen, Specimen Desc: Left knee bone and tissue In Transit Path Tissue Request, Sendout Specimen Type: AP Specimen, Routine collect, 11/06/20 11:08:00 EDT, 1-Time, Collected, Stop: 11/06/20 11:08:00 EDT, Nurse Collect, Specimen Desc: left knee bone and tissue, Print Label By Order Location Ordered CBC no Diff (Hemogram) Specimen Type: Blood, AM Draw collect, 11/07/20 4:00:00 EDT, Daily, For: 3 Day(s), Stop: 11/09/20 4:00:00 EDT, Nurse Collect BMP Basic Metabolic Panel Specimen Type: Blood, AM Draw collect, 11/07/20 4:00:00 EDT, Daily, For: 2 Day(s), Stop: 11/08/20 4:00:00 EDT, Nurse Collect Time Spent on Discharge 15 minutes documented in this encounter Plan of Treatment Not on file documented as of this encounter Visit Diagnoses Not on filedocumented in this encounter Care Teams Slusher Operator Relationship Specialty Start Date End Date Matheus Boggs MD [address] [place] [id number] PCP - General Family Medicine 09/05/22 documented as of this encounter
--- OUTSIDE RECORDS SUMMARY | 2025-03-02 10:55 | XMS_ITS | Encounter Summary ---
Author Organization [facility] Address [address] [place] [address] Care Team Providers Care Regional Director Of Finance Name Role Phone Devin Mendoza MD Primary Care Provider Matheus Boggs MD Primary Care Provider Mitchell Oliva MD Unavailable [phone] Reason for Visit * Reason Comments Medications Refill Encounter Details Date Type Department Care Team (Late st Contact Info) Description 06/26/2010 Refill [facility] Physicians - Primary Care, [address] [place] [phone] Devin Mendoza MD [address] [place] [address] [place] [address] Medications Refill Social History Tobacco Use Types Packs/Day Years [...] on filedocumented in this encounter Care Teams Regional Director Of Finance Relationship Specialty Start Date End Date Devin Mendoza MD PCP - General 04/29/08 09/13/14 Matheus Boggs MD [address] [place] [address] PCP - General Family Medicine 09/14/14 [place] [address] [place] [address] [address] [place] [address] General Surgery 07/28/22 documented as of this encounter
--- OUTSIDE RECORDS SUMMARY | 2025-03-02 10:55 | XMS_ITS | Encounter Summary ---
Author Organization [employer] ([place], [place], [place], [place]) Address [address] [place] [address] Care Team Providers Care Continuous Mining Machine Coal Miner Name Role Phone Matheus Boggs MD Primary Care Provider + [phone] Encounter Details Date Type Department Care Team (Late st Contact Info) Description 11/07/2020 Transcribed Document [facility] [place] [facility] [place] [address] ProviderCristopher MD [address] [place] [address] Social History Tobacco Use Types Packs/Day [...] Conversion Note - Cristopher ProviderMD - 11/07/2020 2:19 PM CDT Nursing Discharge Summary Entered On: 11/07/2020 14:20 EDT Performed On: 11/07/2020 14:19 EDT by YEMI CALL associate professor of pathology Documentation Discharge Date/Time : 11/07/2020 14:20 EDT Patient Disposition, General : Discharge Discharge To : Home with ambulatory/outpatient follow-up Mode Of Departure, General Discharge : Wheelchair Accompanied By, Discharge : Daughter IV Discontinued : Yes Personal Belongings With Patient : Yes Pt's Own Supply of Medications Returned : No patient supply of medications to return Prescriptions Given to Patient : No Medications Given to Patient : Yes Discharge Instructions Reviewed With, Opportunity For Questions Given : Patient, Daughter Patient Education Completed : Yes Number of Medications Given : 0 Teaching Method : Explanation, Printed materials Teaching Evaluation : Verbalizes understanding YEMI CALL, RN - 11/07/2020 14:19 EDT Electronically signed by [facility], [facility] Conversion Water Control Station Engineer Cerner at 11/06/2022 1:13 PM CDT documented in this encounter Plan of Treatment Not on file documented as of this encounter Visit Diagnoses Not on filedocumented in this encounter Care Teams Continuous Mining Machine Coal Miner Relationship Specialty Start Date End Date Matheus Boggs MD [address] [facility] [address] [place] [address] PCP - General Family Medicine 09/05/22 documented as of this encounter
--- OUTSIDE RECORDS SUMMARY | 2025-03-02 10:55 | XMS_ITS | Encounter Summary ---
Author Organization [employer] ([place], [place], [place], [place]) Address [address] [place] [address] Care Team Providers Care Security Manager Name Role Phone Matheus Boggs MD Primary Care Provider + [phone] Encounter Details Date Type Department Care Team (Late st Contact Info) Description 01/31/2020 Transcribed Document [facility] [place] [address] ProviderCristopher MD [address] [place] [id number] Social History Tobacco Use Types Packs/Day Years [...] Conversion Note - Cristopher ProviderMD - 01/31/2020 12:55 PM CDT Orthopedic Nurse Navigator Entered On: 01/31/2020 12:57 EDT Performed On: 01/31/2020 12:55 EDT by CHIKA ROBB RN-Ortho Nurse Navigator Orthopedic Nurse Navigator Assessment Attended Joint Academy : Yes Joint AcademyType : Online Joint Tacker Elastic Band Name : Type of Surgery : Total Knee Replacement, Right Anticipated Discharge Plan : Home Health PT Anticipated Discharge Plan Comment : Patient plans to d/c home with the help of her and requests Violeta for home therapy. CHIKA ROBB RN-Ortho Nurse Navigator - 01/31/2020 12:55 EDT Teaching/Learning Assessment Barriers To Learning : None evident Individuals Taught : Patient Readiness to Learn : Cooperative Readiness to Learn : Demonstration, Explanation, Printed materials, Video/Educational TV Education Comment : Pt verbalized understanding of incentive spirometry. CHIKA ROBB RN-Ortho Nurse Navigator - 01/31/2020 12:55 EDT Education Topics, Orthopedic Pre-Op Ortho Pre-Op Education Grid Ed-Assistive Devices : Verbalizes understanding DVT Prophylaxis : Verbalizes understanding Family Instructions : Verbalizes understanding Herbs/Supplement Instructions : Verbalizes understanding Laboratory Studies : Verbalizes understanding Medication Instructions : Verbalizes understanding NPO : Verbalizes understanding Ed-Occupational Therapy : Verbalizes understanding Pain Management : Verbalizes understanding Physical Prep : Verbalizes understanding Physical Therapy : Verbalizes understanding Plan of Care : Verbalizes understanding Positioning : Verbalizes understanding Post-op Activity/Exercise Regimen : Verbalizes understanding Postoperative Home Needs : Verbalizes understanding Post-operative Monitoring : Verbalizes understanding Post-Op Orthopedic Equipment : Verbalizes understanding Procedure Information : Verbalizes understanding Respiratory Care : Verbalizes understanding Surgical Site : Verbalizes understanding Tubes/Drains/IV's : Verbalizes understanding Turn/Cough/Deep Breathe : Verbalizes understanding Weight Bearing : Verbalizes understanding Ed-Orthopedic Pre-Op, Other : Verbalizes understanding CHKIA ROBB RN-Ortho Nurse Navigator - 01/31/2020 12:55 EDT documented in this encounter Plan of Treatment Not on file documented as of this encounter Visit Diagnoses Not on filedocumented in this encounter Care Teams Security Manager Relationship Specialty Start Date End Date Matheus Boggs MD [address] [place] [facility] [address] [place] [phone] PCP - General Family Medicine 09/05/22 documented as of this encounter
--- OUTSIDE RECORDS SUMMARY | 2025-03-02 10:55 | XMS_ITS | Encounter Summary ---
Author Organization [employer] ([place], [place], [place], [place]) Address [address] [place] [address] Care Team Providers Care Laborer Shipyard Name Role Phone Matheus Boggs MD Primary Care Provider + [phone] Encounter Details Date Type Department Care Team (Late st Contact Info) Description 11/07/2020 Transcribed Document [address] [phone] Chris Keyes MD [address] [place] [address] Social History Tobacco Use Types Packs/Day Years Used Date Smoking Tobacco: Never Assessed Comments Unknown Sex and Gender Information Value Date Recorded Sex Assigned at Female 12/04/2023 11:21 PM CDT Legal Sex Female 7:28 PM CDT Gender Identity Female 12/04/2023 11:21 PM CDT Sexual Orientation Not on file documented as of this encounter Miscellaneous Notes * Cerner Conversion Note - Chris Keyes MD - 11/07/2020 10:09 AM EDT Patient: MARY WALKER V Age: 75 years Sex: Female : 1945 Associated Diagnoses: None Author: LI DIXON PA-SANDRA 11/07/2020 cc: medical management s/p left total knee arthroplasty S: Pt is doing ok. No f'/c/s. No n/v/d. (+) gas, (-) BM. No CP, SOA, palpitations. No cough or sputum. chronic urinary incontinence. Was on Myrbetriq in the past and she thinks it caused her bp to go. Try to talk to her about other options, but she would interrupt and start talking about other things. She declines starting anything for OAB, she wants to get established with new urologist. +post op pain. Using incentive spirometer. HPI: Patient is a 75 yo female admitted to [facility] per Dr. Gonzalez for a left total knee arthroplasty. Preoperatively patient was found to have advanced osteoarthritis of the left knee and elected surgical intervention after failing conservative treatment. Patient is followed perioperatively while hospitalized for medical management. Initial visit in PACU --- pt is sleepy after surgery. Was able to go through most hx. But then she needed to use restroom, in addition she is pretty sleepy after surgery and I had to wake her up numerous times while I was talking to her. Denies prior stroke or seizure. Denies FL, CHF or cardiac arrhythmia. Denies DM. Denies COPD, asthma or ERIC. Denies DVT or PE. Denies h/o cancer. Denies any bladder issues. +HTN, HLD, hypothyroidism Past Med Hx: Active Problems (23) Allergic rhinitis Angina Arthritis osteo Asthma At risk for sleep apnea Bursitis Cardiac syndrome X Difficulty swallowing H/O bilateral Cataract Hard of hearing has aides Hemorrhoids Hiatal hernia High blood pressure Hyperlipidemia hypo Thyroid disease Incontinence/Frequency Irritable bowel syndrome Renal calculus Seasonal allergies Shortness of breath Sinusitis Thyroid mass benign Urinary tract infection Active Procedures (3) catarct ext. iol ou EGD - Esophagogastroduodenoscopy right knee replacement Family Hx: difficult to obtain today. Social & Psychosocial Habits Alcohol 01/13/2020 Alcohol Use History, Social Habits No Substance Abuse 01/13/2020 Recreational Drug Use History No Recreational Drug Use Last 12 Months No Tobacco 01/13/2020 Smoking Status Never (less than 100 in l Smokeless Tobacco Status Never Allergies (7) Active Reaction codeine Tongue swelling NSAIDs Rash zolpidem Hyperactive Bactrim Rash Percodan Rash Terramycin Rash Uncoded Allergy (See Comment) None Documented Home Medications (15) Active acebutolol 200 mg, Oral, BID Align 4 mg oral capsule 4 mg = 1 Cap, Oral, Daily Arnuity Ellipta 100 mcg, PRN, Inhalation, [id number] aspirin 81 mg oral delayed release tablet 81 mg = 1 Tab, Oral, BID cefadroxil 500 mg oral capsule 500 mg = 1 Cap, Oral, Q12H Colace 100 mg oral capsule 100 mg = 1 Cap, PRN, Oral, BID fexofenadine 180 mg, Oral, Daily fluticasone 50 mcg/inh nasal spray 2 [place], PRN, Nasal, BID hydrochlorothiazide-irbesartan 12.5 mg-150 mg oral tablet 1 Tab, Oral, Daily Levoxyl 125 mcg, Oral, Daily liothyronine 5 mcg, Oral, Daily nitrofurantoin macrocrystals 50 mg oral capsule 50 mg = 1 Cap, Oral, At Bedtime Percocet 5/325 oral tablet 1 Tab, PRN, Oral, Q4H Singulair 10 mg, Oral, At Bedtime Ventolin HFA 2 Puff, PRN, Inhalation, Q4H Exam: Vitals Signs (last 24 hrs) Last Charted Minimum Maximum Temp 97.8 (NOV 07 06:46) 97.8 (NOV 07 06:46) 98.1 (NOV 06 11:38) Mon HR 61 (NOV 07 08:31) 55 (NOV 06 12:30) 63 (NOV 06 20:44) Resp Rate 16 (NOV 07 06:46) 16 (NOV 06 11:38) 20 (NOV 06 09:11) SBP 119 (NOV 07 08:31) 100 (NOV 06 14:42) 127 (NOV 06 12:30) DBP L 50 (NOV 07 08:31) L 45 (NOV 06 18:08) 64 (NOV 06 20:44) MAP 76 (NOV 07 08:31) 69 (NOV 06 14:42) 87 (NOV 06 12:15) SpO2 99 (NOV 07 06:46) 94 (NOV 06 12:00) 100 (NOV 06 11:45) GEN: Alert, awake, NAD; sitting up in chair. CV: S1S2, no murmur. No LE edema Resp: CTAB, NL; no wheezes or rhonchi. Abd: Soft, NT, ND +BS Skin: no rashes on inspection and palpation. Ext: No LE edema. No joint edema, erythema. no calf tenderness Neuro: A&O x 3 Bandar: Labs Most Recent Last 28 days CBC Results-Most Recent Last 28 Days Event Name Event Result Date/Time WBC 10.4 K/uL 11/07/20 05:17:00 RBC 3.79 Million/uL Low 11/07/20 05:17:00 Hgb 11.8 g/dL 11/07/20 05:17:00 Hct 35.4 % 11/07/20 05:17:00 MCV 93.4 fL 11/07/20 05:17:00 MCH 31.1 pg 11/07/20 05:17:00 MCHC 33.3 Gram/dL 11/07/20 05:17:00 Platelet Count 234 K/uL 11/07/20 05:17:00 MPV 9.4 fL 11/07/20 05:17:00 RDW 12.4 % 11/07/20 05:17:00 Slide Review No 11/07/20 05:17:00 BMP Results (Most Recent Last 28 Days) Event Name Event Result Date/Time Sodium Level 138 mmol/L 11/07/20 05:17:00 Potassium Level 3.7 mmol/L 11/07/20 05:17:00 Chloride Level 106 mmol/L 11/07/20 05:17:00 Carbon Dioxide Level 27 mmol/L 11/07/20 05:17:00 Anion Gap 9 11/07/20 05:17:00 Glucose Level 110 mg/dL High 11/07/20 05:17:00 Blood Urea Nitrogen 15 mg/dL 11/07/20 05:17:00 Creatinine Level 0.7 mg/dL 11/07/20 05:17:00 eGFR >60 11/07/20 05:17:00 eGFR NonAfrican >60 11/07/20 05:17:00 Bun/Creatinine 21.4 High 11/07/20 05:17:00 Calcium Level 8.9 mg/dL 11/07/20 05:17:00 Other Lab Results (Most Recent Last 28 Days) Event Name Event Result Date/Time PT 10 Second(s) 10/19/20 12:30:00 INR 1 10/19/20 12:30:00 PTT 25 Second(s) 10/19/20 12:30:00 EKG sinus rodolfo, HR 55 Impression: advanced OA left knee -s/p LTKA per Dr. Gonzalez OAB HTN HLD Plan: OK to discharge from IM standpoint pain meds per surgery DVT prophylaxis per surgery bowel regimen at home IS at home Anticipate DC home later today per ortho Assessment and treatment plan made in conjunction with Blessing Keyes MD Scribed by Sneha Tirado documented in this encounter Plan of Treatment Not on file documented as of this encounter Visit Diagnoses Not on filedocumented in this encounter Care Teams Laborer Shipyard Relationship Specialty Start Date End Date Matheus Boggs MD [address] [place] [facility] [address] [place] [phone] PCP - General Family Medicine 09/05/22 documented as of this encounter
--- OUTSIDE RECORDS SUMMARY | 2025-03-02 10:55 | XMS_ITS | Encounter Summary ---
Author Organization [employer] ([place], [place], [place], [place]) Address [address] [place] [address] Care Team Providers Care Probate Paralegal Name Role Phone Matheus Boggs MD Primary Care Provider + [phone] Encounter Details Date Type Department Care Team (Late st Contact Info) Description 11/07/2020 Transcribed Document [facility] [place] [facility] [place] [address] ProviderCristopher MD [address] [place] [address] Social History Tobacco Use Types Packs/Day Years Used Date Smoking Tobacco: Never Assessed Comments Unknown Sex and Gender Information Value Date Recorded Sex Assigned at Female 12/04/2023 11:21 PM CDT Legal Sex Female 7:28 PM CDT Gender Identity Female 12/04/2023 11:21 PM CDT Sexual Orientation Not on file documented as of this encounter Miscellaneous Notes * Cerner Conversion Note - Cristophre ProviderMD - 11/07/2020 11:06 AM CDT UM Authorization Entered On: 11/07/2020 11:06 EDT Performed On: 11/07/2020 11:06 EDT by Susi Andino Rn-Utilization Review Primary Insurance Authorization Authorization and Policy Numbers : Insurance 1 Health Plan: MEDICARE Policy Number: [id number] Authorization Number: Insurance 2 Health Plan: AARP N Policy Number: [id number] Authorization Number: Insurance Primary Name : Medicare Authorization Status-Primary : No precert required Authorization Number-Primary : NPR for Medicare Authorized Service Begin Date-Primary : 11/06/2020 EDT Historical Authorization Comments-Primary : Comment 1: Pt is brunilda for OUT PT total knee replacement on Friday11-06-20 Medicare: NPR (JOSH MALIK, Real Estate Administrative Assistant 11/01/2020 14:30) Susi Andino Rn-Utilization Review - 11/07/2020 11:06 EDT Electronically signed by [facility] Conversion Rotary Machine Operator Cerner at 11/06/2022 1:02 PM CDT documented in this encounter Plan of Treatment Not on file documented as of this encounter Visit Diagnoses Not on filedocumented in this encounter Care Teams Probate Paralegal Relationship Specialty Start Date End Date Matheus Boggs MD [address] [place] [facility] [address] [place] [address] PCP - General Family Medicine 09/05/22 documented as of this encounter
--- OUTSIDE RECORDS SUMMARY | 2025-03-02 10:55 | XMS_ITS | Encounter Summary ---
Author Organization [employer] ([place], [place], [place], [place]) Address [address] [place] [address] Care Team Providers Care Set Decorator Name Role Phone Matheus Boggs MD Primary Care Provider + [phone] Encounter Details Date Type Department Care Team (Late st Contact Info) Description 11/07/2020 Transcribed Document [facility] [place] [address] ProviderCristopher MD [address] [place] [id number] Social History Tobacco Use Types Packs/Day Years Used Date Smoking Tobacco: Never Assessed Comments Unknown Sex and Gender Information Value Date Recorded Sex Assigned at Female 12/04/2023 11:21 PM CDT Legal Sex Female 7:28 PM CDT Gender Identity Female 12/04/2023 11:21 PM CDT Sexual Orientation Not on file documented as of this encounter Miscellaneous Notes * Cerner Conversion Note - Cristopher Kent MD - 11/07/2020 10:54 AM CDT Patient Education Materials Follows: CALL FIRST! Unless you are experiencing life-threatening issues, call your surgeon's office or nurse navigator first, before going to the Emergency Department. Call your surgeon or nurse navigator if: ?? Your incision has increased swelling that does not get better with time, rest, and propping up your leg ?? Your incision has a foul smell or begins to open ?? You have a large amount of bleeding from incision ?? Your incision gets red, warm or increased drainage after 2 days ?? You have a fever over 101 degrees for more than 24 hours ?? You have increased swelling, redness, warmth or pain in your calf ?? You fall, but don't have an obvious injury ?? You have questions or cause for concern regarding your total joint replacement Call 911 if: ?? You have sudden chest pain or shortness of breath ?? You fall and cannot get up ?? Life-threatening signs or symptoms ?? Stroke signs and symptoms: Facial droop, uneven smile, arm numbness, arm weakness, slurred speech, difficulty speaking or understanding If you are a patient of Dr. Gonzalez or Dr. Arthur, call [phone] If you are a patient of Dr. German, call [phone] Nurse Navigator: Ivanna Carrasco Office: [phone]; ; available during regular business hours Electronically signed by [facility] Conversion Plate Glass Polisher Cerner at 11/06/2022 1:12 PM CDT documented in this encounter Plan of Treatment Not on file documented as of this encounter Visit Diagnoses Not on filedocumented in this encounter Care Teams Set Decorator Relationship Specialty Start Date End Date Matheus Boggs MD [facility] [address] [place] [phone] PCP - General Family Medicine 09/05/22 documented as of this encounter
--- OUTSIDE RECORDS SUMMARY | 2025-03-02 10:55 | XMS_ITS | Encounter Summary ---
Author Organization [employer] ([place], [place], [place], [place]) Address [address] [place] [address] Care Team Providers Care Topper Press Operator Automatic Name Role Phone Matheus Boggs MD Primary Care Provider + [phone] Encounter Details Date Type Department Care Team (Late st Contact Info) Description 11/14/2020 Transcribed Document [facility] [place] [facility] [place] [address] ProviderCristopher MD [address] [place] [address] Social History Tobacco Use Types Packs/Day [...] Cerner Conversion Note - Cristopher ProviderMD - 11/14/2020 12:27 PM CDT Discharge Follow Up Phone Call Entered On: 11/14/2020 12:29 EDT Performed On: 11/14/2020 12:27 EDT by Tere Carrasco RN-Navigator Discharge Follow Up Phone Call Medical/Surgical Follow Up : Open Discharge Disposition : Discharge To Care Management: Home Health Services (Related/SOC within 3 days)-06 Post Visit Phone Call History : First call Contact Relationship to Patient : Self Provider Follow-Up Post Discharge : Discharge Follow Up SHWETA DANGELO PA-ORT - 03:00 PM 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 She does report more pain than with RTKA. She states, I probably just don't remember how much pain I was in. Tere Carrasco RN-Navigator - 11/14/2020 12:27 EDT Medical/Surgical Follow Up Adequate Pain Control After Visit : Yes Surgical Dressing Clean/Dry/Intact : Yes Surgical Site Free of Redness/Swelling/Drainage : Yes Symptoms of Fever : No Symptoms of Nausea or Vomiting : No Adequate Fluid Intake : Yes Food Intake, Post Visit : Fair Bowel/Bladder Concerns : No Mobility Progressing or Maintained as Expected : Yes Tere Carrasco RN-Navigator - 11/14/2020 12:27 EDT documented in this encounter Plan of Treatment Not on file documented as of this encounter Visit Diagnoses Not on filedocumented in this encounter Care Teams Topper Press Operator Automatic Relationship Specialty Start Date End Date Matheus Boggs MD [address] [place] [facility] [address] [place] [phone] PCP - General Family Medicine 09/05/22 documented as of this encounter
--- OUTSIDE RECORDS SUMMARY | 2025-03-02 10:55 | XMS_ITS | Encounter Summary ---
Author Organization [email or web address] ([place], [place], [place], [place]) Address [address] [place] [address] Care Team Providers Care Software Client Architect Name Role Phone Matheus Boggs MD Primary Care Provider + [phone] Encounter Details Date Type Department Care Team (Late st Contact Info) Description 11/07/2020 Transcribed Document [facility] [place] [facility] [place] [address] ProviderCristopher MD [address] [place] [address] Social History Tobacco Use Types Packs/Day [...] Conversion Note - Cristopher ProviderMD - 11/07/2020 6:00 AM CDT Pain Assessment Entered On: 11/07/2020 15:56 EDT Performed On: 11/07/2020 7:32 EDT by Tania Pérez RN Intervention Information: acetaminophen Performed by Virginia Bond RN on 11/07/2020 06:32:00 EDT acetaminophen,1000mg Oral Pain Assessment Pain Assessment : Follow-up assessment Pain Scale Goal : 4 Pain Scale Used : 0-10 Scale Location : Knee, left Onset : Acute Quality : Aching Pain Radiation : No Pain Worsened by : Movement Pain Intervention, Drug : Medicated Pain Improved by Intervention : Yes Tania Pérez RN - 11/07/2020 15:56 EDT Pain Scale Intensity : 4 Tania Pérez RN - 11/07/2020 15:56 EDT Image 4 - Images currently included in the form version of this document have not been included in the text rendition version of the form. documented in this encounter Plan of Treatment Not on file documented as of this encounter Visit Diagnoses Not on filedocumented in this encounter Care Teams Software Client Architect Relationship Specialty Start Date End Date Matheus Boggs MD [address] [facility] [address] [place] [phone] PCP - General Family Medicine 09/05/22 documented as of this encounter
--- OUTSIDE RECORDS SUMMARY | 2025-03-02 10:55 | XMS_ITS | Encounter Summary ---
Author Organization [employer] ([place], [place], [place], [place]) Address [address] [place] [address] Care Team Providers Care Community Life Director Name Role Phone Matheus Boggs MD Primary Care Provider + [phone] Encounter Details Date Type Department Care Team (Late st Contact Info) Description 11/07/2020 Transcribed Document [facility] [place] [facility] [address] ProviderCristopher MD [address] [place] [address] Social History Tobacco Use Types Packs/Day [...] Conversion Note - Cristopher ProviderMD - 11/07/2020 11:18 AM CDT Stroke/Warfarin Instructions Entered On: 11/07/2020 11:19 EDT Performed On: 11/07/2020 11:18 EDT by YEMI CALL RN Stroke/Warfarin Instructions Stroke/TIA Discharge Ins : N/A Warfarin Discharge Ins : N/A YEMI CALL RN - 11/07/2020 11:18 EDT documented in this encounter Plan of Treatment Not on file documented as of this encounter Visit Diagnoses Not on filedocumented in this encounter Care Teams Community Life Director Relationship Specialty Start Date End Date Matheus Boggs MD [address] [facility] [address] [place] [phone] PCP - General Family Medicine 09/05/22 documented as of this encounter
--- OUTSIDE RECORDS SUMMARY | 2025-03-02 10:55 | XMS_ITS | Encounter Summary ---
Author Organization [email or web address] ([place], [place], [place], [place]) Address [address] [place] [address] Care Team Providers Care Armored Car Guard Name Role Phone Michelet Boggs MD Primary Care Provider + [phone] Encounter Details Date Type Department Care Team (Late st Contact Info) Description 02/01/2020 Transcribed Document [facility] [place] Medicine [facility] [place] [address] ProviderCristopher MD [address] [place] [id number] Social History Tobacco Use Types Packs/Day Years [...] Conversion Note - Cristopher ProviderMD - 02/01/2020 6:21 AM CDT Patient: MELISSA WALKER V Age: 74 Years Sex: Female : 1945 Admit Date 01/31/2020 10:45 Discharge Date 02/01/2020 Primary Care Provider MICHELET BOGGS (REF) T Discharge Diagnosis History of knee replacement 02/01/2020 Z96.659 ICD-10-CM Procedures SN - Proc - Procedure: Knee Total Joint Replacement (01/31/20 09:37:35) Reason for Hospitalization 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 Patient had failed conservative measures and [...] by nurse navigator/case management. Vital Signs T: 36.8 ??C TMIN: 36.3 ??C TMAX: 36.9 ??C HR: 59(Monitored) RR: 18 BP: 106/86 SpO2: 100% HT: 156.21 cm WT: 78.32 kg BMI: 32.1 Oxygen Settings (Last) Oxygen Therapy Mode: Room air (02/01/20 02:10:00) Oxygen Flow Rate: 2 Liter/Min (01/31/20 19:52:00) Physical Exam The dressing is clean dry secure. The operative extremity is neurovascularly intact with the exception to which is attributed to peripheral nerve block. Compartments are soft. 0-94 Discharge Disposition Home with home health Discharge Follow Up SHWETA DANGELO PA-ORMarycarmen - 03:30 PM Discharge Medications (16) Active acebutolol 200 mg, Oral, BID allerlgy shots 1, SubCutaneous, [id number] Arnuity Ellipta 100 mcg, PRN, Inhalation, [id number] aspirin 81 mg oral tablet 81 mg = 1 Tab, Oral, BID Colace 100 mg oral capsule 100 mg = 1 Cap, PRN, Oral, BID ferrous gluconate 324 mg (37.5 mg elemental iron) oral tablet 324 mg = 1 Tab, Oral, Daily fexofenadine 180 mg, Oral, Daily fluticasone 50 mcg/inh nasal spray 2 Artemus, PRN, Nasal, BID hydrochlorothiazide-irbesartan 12.5 mg-150 mg oral tablet 1 Tab, Oral, Daily hydrOXYzine hydrochloride 25 mg, PRN, Oral, TID Levoxyl 125 mcg, Oral, Daily liothyronine 5 mcg, Oral, Daily Meloxicam 7.5 qd Neurontin 300 mg oral capsule 300 mg = 1 Cap, PRN, Oral, At Bedtime Percocet 5/325 oral tablet 1 Tab, PRN, Oral, Q4H Singulair 10 mg, Oral, At Bedtime Ventolin HFA 2 Puff, PRN, Inhalation, Q4H Code Status Start: 01/31/20 12:46:00 EDT, Full Code, Continuous Order Condition on Discharge Stable Consulting Physicians BOBBI GERARDO MD-GLADIS OWENS MD-INT Current Diet Order Diet, Adult - Ordered -- Start: 01/31/20 12:46:00 EDT, Regular Diet Patient Discharge Summary Orders [...] drainage should be reported to the orthopedic office.Continuous use of cryotherapy as needed for pain and swelling. Recommended as one hour of every 3. Pending Labs In Process SENDOUT REPORT [id number], [id number], RT - Routine, 01/31/20 10:41:00 EDT Pathology Tissue Request [id number], [id number], 01/31/20 10:41:00 EDT, Collected, RT - Routine, 01/31/20 13:35:29 EDT, IGOR ACEVEDO Histk[place], Specimen Type: AP Specimen, Specimen Desc: A. RIGHT KNEE BONE FRAGMENTS AND TISSUE In Transit Path Tissue Request, Sendout Specimen Type: AP Specimen, Routine collect, 01/31/20 10:41:00 EDT, 1-Time, Collected, Stop: 01/31/20 10:41:00 EDT, Nurse Collect, Specimen Desc: A. RIGHT KNEE BONE FRAGMENTS AND TISSUE, Print Label By Order Location Ordered CBC no Diff (Hemogram) Specimen Type: Blood, AM Draw collect, 02/01/20 4:00:00 EDT, Daily, For: 3 Day(s), Stop: 02/03/20 4:00:00 EDT, Nurse Collect BMP Basic Metabolic Panel Specimen Type: Blood, AM Draw collect, 02/01/20 4:00:00 EDT, Daily, For: 2 Day(s), Stop: 02/02/20 4:00:00 EDT, Nurse Collect Time Spent on Discharge 20 minutes documented in this encounter Plan of Treatment Not on file documented as of this encounter Visit Diagnoses Not on filedocumented in this encounter Care Teams Armored Car Guard Relationship Specialty Start Date End Date Michelet Boggs MD [address] [place] [facility] [address] [place] [phone] PCP - General Family Medicine 09/05/22 documented as of this encounter
--- OUTSIDE RECORDS SUMMARY | 2025-03-02 10:55 | XMS_ITS | Encounter Summary ---
Author Organization [facility] ([place], [place], [place], [place]) Address [address] [place] [address] Care Team Providers Care Hemodialysis Charge Nurse Name Role Phone Michelet Boggs MD Primary Care Provider + [phone] Encounter Details Date Type Department Care Team (Late st Contact Info) Description 11/07/2020 Transcribed Document [facility] [place] [facility] [place] [address] ProviderCristopher MD [address] [place] [id number] Social History Tobacco Use Types Packs/Day [...] Conversion Note - Cristopher ProviderMD - 11/07/2020 12:02 PM CDT [facility] [place] [address] MELISSA WALKER V :1945 Visit Time:11/06/2020 Your Visit Summary Your Care Team Admitting Physician - DEAN GONZALEZ MD-ORT Attending Physician - DEAN GONZALEZ MD-ORT Primary Care Physician - MICHELET BOGGS (REF)MD-SANDRA Referring Physician - DEAN GONZALEZ MD-ORMarycarmen Your Diagnosis History of knee replacement Unilateral primary osteoarthritis, right knee, Unilateral primary osteoarthritis, right knee Discharge Vitals Temperature 36.6 ??C Heart Rate (Monitored) 61 Respiratory Rate 16 Blood Pressure 119/50 What to do next Instructions From Your Care Team Diet after Discharge: Resume usual diet as tolerated Activity after Discharge: As tolerated, No strenuous activity Lifting Restrictions: No heavy lifting over 10 pounds Weight Bearing: Full weight bearing Driving after Discharge: Do not drive Showering/Bathing: May shower, No tub bathing, soaking or swimming Notify Provider of: See Call First discharge sheet Wound/Incision Care after Discharge: Keep operative site/wound site clean and dry, DO NOT change dressing; may reinforce it as needed; Remove dressing in 7-10 days and then may leave open to air if no drainage present Home Health Services: [place]--[phone] Please STOP taking the medication meloxicam. Discharge Follow Up Instructions: Follow-up Dr. Gonzalez 3 wks ([phone]) Follow Up Instructions: Continue SAMIA hose for 6 weeks Follow Up Instructions: Leave Aquacel dressing in place x 7-10d, then open to air. Follow-Up Appointments Follow Up with SHWETA DANGELO PA-ORMarycarmen When 11/28/2020 03:00 PM EDT Where: [address] [place], [place] [address] [address]- Medications What How Much When Instructions Next Dose acetaminophen-oxyCODONE (Percocet 5/ 325 oral tablet) 1 Tablet(s) Oral Every 4 Hours as needed for as needed for pain not to exceed 5 tablets/ day Pickup at [facility] aspirin (aspirin 81 mg oral delayed release tablet) 1 Tablet(s) Oral Two Times A Day Pickup at [facility] at [facility] cefadroxil (cefadroxil 500 mg oral capsule) 1 Capsule(s) Oral Every 12 hours Duration: 7 Day(s) Pickup at [facility] docusate (Colace 100 mg oral capsule) 1 Capsule(s) Oral Two Times A Day as needed for for constipation Duration: 30 Day(s) Pickup at [facility] at [facility] if needed acebutolol 200 Milligram(s) Oral Two Times A Day tonight albuterol (Ventolin HFA) 2 Puff(s) Inhalation Every 4 Hours as needed for as needed for wheezing as needed bifidobacterium infantis (Align 4 mg oral capsule) 1 Capsule(s) Oral Every Day in am fexofenadine 180 Milligram(s) Oral Every Day in am fluticasone (Arnuity Ellipta) 100 Microgram(s) Inhalation Interval Every 24 Hours as needed for Wheezing as needed fluticasone nasal (fluticasone 50 mcg/ inh nasal spray) 2 [place](s) Nasal Two Times A Day as needed for Allergies as needed hydrochlorothiazide-irbesartan (hydrochlorothiazide-irbesartan 12.5 mg-150 mg oral tablet) 1 Tablet(s) Oral Every Day in am levothyroxine (Levoxyl) 125 Microgram(s) Oral Every Day in am liothyronine 5 Microgram(s) Oral Every Day in am montelukast (Singulair) 10 Milligram(s) Oral At Bedtime [facility] nitrofurantoin (nitrofurantoin macrocrystals 50 mg oral capsule) 1 Capsule(s) Oral At Bedtime [facility] Pharmacy Information [facility] [place]: [address] [facility] [address] [place], [place] [id number] [phone] Take your medications faithfully. Do NOT skip medication. Do NOT stop taking medications without the direction of a physician. Carry a list of your medications with you at all times, and take this medication list with you to your first follow up visit. Report any side effects. Avoid herbal remedies unless discussed with your physician. As part of your treatment plan, your physician may have prescribed a limited course of a controlled substance. This medication may be given to help people with moderate or severe pain or for other medical conditions, but there are risks involved with treatment. Common side effects may include nausea, constipation, drowsiness, sweating, itching, dry mouth, and rash. More serious side effects may include cognitive and motor impairment, like problems with thinking, concentrating, alertness, and movement (e.g. slowed reflexes), and driving and operating heavy machinery can be dangerous. It is important for you to talk to your physician if you have these side effects or questions. These controlled substances can produce physical dependence and be habit-forming if taken for an extended period of time, which means that the body has gotten used to them and may experience withdrawal symptoms if they are abruptly stopped. Withdrawal symptoms can include runny nose, sweating, goose bumps, diarrhea, abdominal cramping, rapid heartbeat, difficulty sleeping, and nervousness. Please dispose of unused and medications per your retail pharmacy guidance. Allergies NSAIDs (Rash) codeine (Tongue swelling, Rash) zolpidem (Hyperactive) Bactrim (Rash) Percodan (Rash) Terramycin (Swelling of throat, Rash) Uncoded Allergy (See Comment) Immunizations This Visit pneumococcal 13-valent vaccine 11/07/2020 Education Materials CALL FIRST! Unless you are experiencing life-threatening issues, call your surgeon???s office or nurse navigator first, before going to the Emergency Department. Call your surgeon or nurse navigator if: ??? Your incision has increased swelling that does not get better with time, rest, and propping up your leg ??? Your incision has a foul smell or begins to open ??? You have a large amount of bleeding from incision ??? Your incision gets red, warm or increased drainage after 2 days ??? You have a fever over 101 degrees for more than 24 hours ??? You have increased swelling, redness, warmth or pain in your calf ??? You fall, but don???t have an obvious injury ??? You have questions or cause for concern regarding your total joint replacement Call 911 if: ??? You have sudden chest pain or shortness of breath ??? You fall and cannot get up ??? Life-threatening signs or symptoms ??? Stroke signs and symptoms: Facial droop, uneven smile, arm numbness, arm weakness, slurred speech, difficulty speaking or understanding If you are a patient of Dr. Gonzalez or Dr. Arthur, call [phone] If you are a patient of Dr. German, call [phone] Nurse Navigator: Ivanna Carrasco Office: [phone]; ; available during regular business hours cefadroxil (SEF a DROX il) What is the most important information I should know about cefadroxil? Follow all directions on your medicine label and package. Tell each of your healthcare providers about all your medical conditions, allergies, and all medicines you use. What is cefadroxil? Cefadroxil is a cephalosporin (SEF a low spor in) antibiotic that is used to treat many different types of infections caused by bacteria. Cefadroxil may also be used for purposes not listed in this medication guide. What should I discuss with my healthcare provider before taking cefadroxil? You should not take this medicine if you are allergic to cefadroxil or other cephalosporin antibiotic (cefdinir, cefalexin, Keflex, Omnicef, and others). Tell your doctor if you have ever had: ?? an allergy to any drug (especially penicillin); ?? intestinal problems, such as colitis; or ?? kidney disease. Cefadroxil liquid contains sucrose. Talk to your doctor before using this form of cefadroxil if you have diabetes. Tell your doctor if you are or . How should I take cefadroxil? Follow all directions on your prescription label and read all medicine guides or instruction sheets. Use the medicine exactly as directed. You may take cefadroxil with or without food. Take with food if cefadroxil upsets your stomach. Shake the oral suspension (liquid) before you measure a dose. Use the dosing syringe provided, or use a medicine dose-measuring device (not a kitchen spoon). Cefadroxil doses are based on weight in children. Follow all dosing instructions carefully when giving this medicine to a child. Use this medicine for the full prescribed length of time, even if your symptoms quickly improve. Skipping doses can increase your risk of infection that is resistant to medication. Cefadroxil will not treat a viral infection such as the flu or a common cold. Cefadroxil can affect the results of certain medical tests. Tell any doctor who treats you that you are using cefadroxil. Store the tablets or capsules at room temperature, away from moisture and heat. Store cefadroxil liquid in the refrigerator. Do not freeze. Throw away any unused cefadroxil liquid that is older than 14 days. What happens if I miss a dose? Take the medicine as soon as you can, but skip the missed dose if it is almost time for your next dose. Do not take two doses at one time. What happens if I overdose? Seek emergency medical attention or call the Poison Help line at . What should I avoid while taking cefadroxil? Antibiotic medicines can cause diarrhea, which may be a sign of a new infection. If you have diarrhea that is watery or bloody, call your doctor before using anti-diarrhea medicine. What are the possible side effects of cefadroxil? Get emergency medical help if you have signs of an allergic reaction: hives; difficult breathing; swelling of your face, lips, tongue, or throat. Call your doctor at once if you have: ?? severe stomach pain, diarrhea that is watery or bloody (even if it occurs months after your last dose); ?? fever, chills, body aches, flu symptoms; ?? pale skin, easy bruising, unusual bleeding; ?? a seizure; ?? fever, weakness, confusion; ?? dark colored urine, jaundice (yellowing of the skin or eyes); or ?? kidney problems--little or no urination, swelling in your feet or ankles, feeling tired or short of breath. Common side effects may include: ?? diarrhea; ?? stomach pain; or ?? vaginal itching or discharge. This is not a complete list of side effects and others may occur. Call your doctor for medical advice about side effects. You may report side effects to FDA at 7-632-RAR-2960. What other drugs will affect cefadroxil? Other drugs may affect cefadroxil, including prescription and kfxg-sax-tudgcwz medicines, vitamins, and herbal products. Tell your doctor about all your current medicines and any medicine you start or stop using. Where can I get more information? Your pharmacist can provide more information about cefadroxil. Remember, keep this and all other medicines out of the reach of children, never share your medicines with others, and use this medication only for the indication prescribed. Every effort has been made to ensure that the information provided by [employer] is accurate, up-to-date, and complete, but no guarantee is made to that effect. Drug information contained herein may be time sensitive. [employer] information has been compiled for use by healthcare practitioners and consumers in the [place] and therefore [employer] does not warrant that uses outside of the [place] are appropriate, unless specifically indicated otherwise. [employer] drug information does not endorse drugs, diagnose patients or recommend therapy. [employer] drug information is an informational resource designed to assist licensed healthcare practitioners in caring for their patients and/or to serve consumers viewing this service as a supplement to, and not a substitute for, the expertise, skill, knowledge and judgment of healthcare practitioners. The absence of a warning for a given drug or drug combination in no way should be construed to indicate that the drug or drug combination is safe, effective or appropriate for any given patient. [employer] does not assume any responsibility for any aspect of healthcare administered with the aid of information [employer] provides. The information contained herein is not intended to cover all possible uses, directions, precautions, warnings, drug interactions, allergic reactions, or adverse effects. If you have questions about the drugs you are taking, check with your doctor, nurse or pharmacist. Copyright 6318-1920 [employer]. Version: 6.03. Revision Date: 07/24/2020. aspirin (oral) ( pir in) Arthritis Pain, Aspi-Cor, Aspir 81, Aspir-Low, Brianda Plus, Bufferin, Durlaza, Ecotrin, Ecpirin, Miniprin What is the most important information I should know about aspirin? You should not use aspirin if you have a bleeding disorder such as hemophilia, a recent history of stomach or intestinal bleeding, or if you are allergic to an NSAID (non-steroidal anti-inflammatory drug). Aspirin can cause Ruben's syndrome, a serious and sometimes fatal condition in children. What is aspirin? Aspirin is a salicylate (of-RDA-sp-ate) that is used to treat pain, and reduce fever or inflammation. Aspirin is sometimes used to treat or prevent heart attacks, strokes, and chest pain (angina). Aspirin should be used for cardiovascular conditions only under the supervision of a doctor. Aspirin may also be used for purposes not listed in this medication guide. What should I discuss with my healthcare provider before taking aspirin? Do not give this medicine to a child or teenager with a fever, flu symptoms, or chickenpox. Aspirin can cause Ruben's syndrome, a serious and sometimes fatal condition in children. You should not use aspirin if you are allergic to it, or if you have: ?? a recent history of stomach or intestinal bleeding; ?? a bleeding disorder such as hemophilia; or ?? if you have ever had an asthma attack or severe allergic reaction after taking aspirin or an NSAID (non-steroidal anti-inflammatory drug). Tell your doctor if you have ever had: ?? asthma or seasonal allergies; ?? stomach ulcers; ?? liver disease; ?? kidney disease; ?? a bleeding or blood clotting disorder; ?? gout; or ?? heart disease, high blood pressure, or congestive heart failure. Taking aspirin during late may cause bleeding in the mother or the baby during delivery. Tell your doctor if you are or plan to become . You should not breastfeed while using this medicine. How should I take aspirin? Use exactly as directed on the label, or as prescribed by your doctor. Always follow directions on the medicine label about giving aspirin to a child. Take with food if aspirin upsets your stomach. You must chew the chewable tablet before you swallow it. Do not crush, chew, break, or open an enteric-coated or delayed/extended-release pill. Swallow it whole. If you need surgery, tell your surgeon you currently use this medicine. You may need to stop for a short time. Do not use aspirin if you smell a strong vinegar odor in the aspirin bottle. The medicine may no longer be effective. Store at room temperature away from moisture and heat. What happens if I miss a dose? Since aspirin is used when needed, you may not be on a dosing schedule. Skip any missed dose if it's almost time for your next dose. Do not use two doses at one time. What happens if I overdose? Seek emergency medical attention or call the Poison Help line at . Overdose symptoms may include stomach pain, vomiting, diarrhea, vision or hearing problems, fast or slow breathing, or confusion. What should I avoid while taking aspirin? Avoid alcohol. Heavy drinking can increase your risk of stomach bleeding. If you are taking aspirin to prevent heart attack or stroke, avoid also taking ibuprofen (Advil, Motrin). Ibuprofen can make aspirin less effective in protecting your heart and blood vessels. If you must use both medications, ask your doctor how far apart your doses should be. Ask a doctor or pharmacist before using other medicines for pain, fever, swelling, or cold/flu symptoms. They may contain ingredients similar to aspirin (such as magnesium salicylate, ibuprofen, ketoprofen, or naproxen). What are the possible side effects of aspirin? Get emergency medical help if you have signs of an allergic reaction: hives; difficult breathing; swelling of your face, lips, tongue, or throat. Stop using aspirin and call your doctor at once if you have: ?? ringing in your ears, confusion, hallucinations, rapid breathing, seizure (convulsions); ?? severe nausea, vomiting, or stomach pain; ?? bloody or tarry stools, coughing up blood or vomit that looks like coffee grounds; ?? fever lasting longer than 3 days; or ?? swelling, or pain lasting longer than 10 days. Common side effects may include: ?? upset stomach, heartburn; ?? drowsiness; or ?? mild headache. This is not a complete list of side effects and others may occur. Call your doctor for medical advice about side effects. You may report side effects to FDA at 1-797-STC-0939. What other drugs will affect aspirin? Ask your doctor before using aspirin if you take an antidepressant. Taking certain antidepressants with aspirin may cause you to bruise or bleed easily. Ask a doctor or pharmacist before using aspirin with any other medications, especially: ?? a blood thinner (warfarin, Coumadin, Jantoven), or other medication used to prevent blood clots; or ?? other salicylates such as Nuprin Backache Caplet, Kaopectate, KneeRelief, Pamprin Cramp Formula, Pepto-Bismol, Tricosal, Trilisate, and others. This list is not complete. Other drugs may affect aspirin, including prescription and itme-cvf-gnmcsfs medicines, vitamins, and herbal products. Not all possible drug interactions are listed here. Where can I get more information? Your pharmacist can provide more information about aspirin. Remember, keep this and all other medicines out of the reach of children, never share your medicines with others, and use this medication only for the indication prescribed. Every effort has been made to ensure that the information provided by [employer] is accurate, up-to-date, and complete, but no guarantee is made to that effect. Drug information contained herein may be time sensitive. [employer] information has been compiled for use by healthcare practitioners and consumers in the [place] and therefore [employer] does not warrant that uses outside of the [place] are appropriate, unless specifically indicated otherwise. [employer] drug information does not endorse drugs, diagnose patients or recommend therapy. [employer] drug information is an informational resource designed to assist licensed healthcare practitioners in caring for their patients and/or to serve consumers viewing this service as a supplement to, and not a substitute for, the expertise, skill, knowledge and judgment of healthcare practitioners. The absence of a warning for a given drug or drug combination in no way should be construed to indicate that the drug or drug combination is safe, effective or appropriate for any given patient. [facility] does not assume any responsibility for any aspect of healthcare administered with the aid of information [employer] provides. The information contained herein is not intended to cover all possible uses, directions, precautions, warnings, drug interactions, allergic reactions, or adverse effects. If you have questions about the drugs you are taking, check with your doctor, nurse or pharmacist. Copyright 4571-9822 [facility]. Version: 16.. Revision Date: 03/08/2020. docusate (oral/rectal) (DOK ue sate) Colace, Diocto, Doc-Q-Lace, Docu, Doculase, Docusil, Docusoft S, DocuSol, Dulcolax Stool Softener, Enemeez Mini, Kemal-Tin, Pedia-Lax Stool Softener, Ca Stool Softener, Promolaxin, Silace, Surfak Stool Softener, Cintia-Q-Lax What is the most important information I should know about docusate? You should not use docusate if you also use mineral oil, unless your doctor tells you to. What is docusate? Docusate is a stool softener that makes bowel movements softer and easier to pass. Docusate is used to relieve occasional constipation (irregularity). There are many brands and forms of docusate available. Not all brands are listed on this leaflet. Docusate may also be used for purposes not listed in this medication guide. What should I discuss with my healthcare provider before using docusate? You should not use docusate if you are allergic to it. Ask a doctor or pharmacist if this medicine is safe to use if you have: ?? stomach pain; ?? nausea; ?? vomiting; or ?? a sudden change in bowel habits that lasts over 2 weeks. Ask a doctor before using this medicine if you are or . Do not give this medicine to a child without medical advice. How should I use docusate? Use exactly as directed on the label, or as prescribed by your doctor. Drink plenty of liquids while you are using docusate. Measure liquid medicine carefully. Use the dosing syringe provided, or use a medicine dose-measuring device (not a kitchen spoon). Do not take the rectal enema by mouth. Rectal medicine is for use only in the rectum. Wash your hands before and after using the enema. To use the enema, lie on your left side with your left leg extended and your right leg slightly bent. Remove the cap from the applicator tip and gently insert the tip into your rectum. Slowly squeeze the bottle to empty the contents into the rectum. After using the enema, lie down on your left side for at least 30 minutes to allow the liquid to distribute throughout your intestines. Avoid using the bathroom, and hold in the enema at least 1 hour, or all night if possible. Read and carefully follow any Instructions for Use provided with your medicine. Ask your doctor or pharmacist if you do not understand these instructions. Docusate generally produces bowel movement in 12 to 72 hours. Call your doctor if your symptoms do not improve after 72 hours. You should not use docusate for longer than 1 week, unless your doctor tells you to. Store at room temperature away from moisture and heat. Do not freeze liquid medicine. What happens if I miss a dose? Since docusate is used when needed, you may not be on a dosing schedule. Skip any missed dose if it's almost time for your next dose. Do not use two doses at one time. What happens if I overdose? Seek emergency medical attention or call the Poison Help line at . What should I avoid while using docusate? Avoid using mineral oil, unless told to do so by a doctor. What are the possible side effects of docusate? Get emergency medical help if you have signs of an allergic reaction: hives; difficult breathing; swelling of your face, lips, tongue, or throat. Stop using docusate and call your doctor at once if you have: ?? rectal bleeding or irritation; or ?? no bowel movement after 72 hours. Less serious side effects may be more likely, and you may have none at all. This is not a complete list of side effects and others may occur. Call your doctor for medical advice about side effects. You may report side effects to FDA at 1-760-LPL-5062. What other drugs will affect docusate? Other drugs may affect docusate, including prescription and sjkt-tih-mjuwiev medicines, vitamins, and herbal products. Tell your doctor about all your current medicines and any medicine you start or stop using. Where can I get more information? Your pharmacist can provide more information about docusate. Remember, keep this and all other medicines out of the reach of children, never share your medicines with others, and use this medication only for the indication prescribed. Every effort has been made to ensure that the information provided by [employer]. [employer]') is accurate, up-to-date, and complete, but no guarantee is made to that effect. Drug information contained herein may be time sensitive. [employer] information has been compiled for use by healthcare practitioners and consumers in the [place] and therefore [employer] does not warrant that uses outside of the [place] are appropriate, unless specifically indicated otherwise. [employer]'s drug information does not endorse drugs, diagnose patients or recommend therapy. [employer] drug information is an informational resource designed to assist licensed healthcare practitioners in caring for their patients and/or to serve consumers viewing this service as a supplement to, and not a substitute for, the expertise, skill, knowledge and judgment of healthcare practitioners. The absence of a warning for a given drug or drug combination in no way should be construed to indicate that the drug or drug combination is safe, effective or appropriate for any given patient. [employer] does not assume any responsibility for any aspect of healthcare administered with the aid of information [employer] provides. The information contained herein is not intended to cover all possible uses, directions, precautions, warnings, drug interactions, allergic reactions, or adverse effects. If you have questions about the drugs you are taking, check with your doctor, nurse or pharmacist. Copyright 2997-2495 [employer]. Version: 4.01. Revision Date: 01/25/2019. acetaminophen and oxycodone (a SEET a MIN oh fen and OX i KOE done) Endocet 10/325, Endocet 2.5/325, Endocet 5/325, Endocet 7.5/325, Nalocet, Percocet, Primlev What is the most important information I should know about acetaminophen and oxycodone? MISUSE OF OPIOID MEDICINE CAN CAUSE ADDICTION, OVERDOSE, OR . Keep the medication in a place where others cannot get to it. Taking opioid medicine during may cause life-threatening withdrawal symptoms in the . Fatal side effects can occur if you use opioid medicine with alcohol, or with other drugs that cause drowsiness or slow your breathing. Stop taking this medicine and call your doctor right away if you have skin redness or a rash that spreads and causes blistering and peeling. What is acetaminophen and oxycodone? Acetaminophen and oxycodone is a combination medicine used to relieve moderate to severe pain. Acetaminophen and oxycodone contains an opioide medicine and may be habit-forming. Acetaminophen and oxycodone may also be used for purposes not listed in this medication guide. What should I discuss with my healthcare provider before taking acetaminophen and oxycodone? You should not use this medicine if you are allergic to acetaminophen or oxycodone, or if you have: ?? severe asthma or breathing problems; or ?? a blockage in your stomach or intestines. Tell your doctor if you have ever had: ?? breathing problems, sleep apnea; ?? liver disease; ?? a drug or alcohol addiction; ?? kidney disease; ?? a head injury or seizures; ?? urination problems; or ?? problems with your thyroid, pancreas, or gallbladder. If you use opioid medicine while you are , your baby could become dependent on the drug. This can cause life-threatening withdrawal symptoms in the baby after it is born. Babies born dependent on opioids may need medical treatment for several weeks. Ask a doctor before using opioid medicine if you are . Tell your doctor if you notice severe drowsiness or slow breathing in the nursing baby. How should I take acetaminophen and oxycodone? Follow all directions on your prescription label. Never take this medicine in larger amounts, or for longer than prescribed. An overdose can damage your liver or cause . Tell your doctor if you feel an increased urge to use more of this medicine. Never share opioid medicine with another person, especially someone with a history of drug abuse or addiction. MISUSE CAN CAUSE ADDICTION, OVERDOSE, OR . Keep the medicine in a place where others cannot get to it. Selling or giving away opioid medicine is against the law. Measure liquid medicine carefully. Use the dosing syringe provided, or use a medicine dose-measuring device (not a kitchen spoon). If you need surgery or medical tests, tell the doctor ahead of time that you are using this medicine. You should not stop using this medicine suddenly. Follow your doctor's instructions about tapering your dose. Store at room temperature away from moisture and heat. Keep track of your medicine. You should be aware if anyone is using it improperly or without a prescription. Do not keep leftover opioid medication. Just one dose can cause in someone using this medicine accidentally or improperly. Ask your pharmacist where to locate a drug take-back disposal program. If there is no take-back program, flush the unused medicine down the toilet. What happens if I miss a dose? Since this medicine is used for pain, you are not likely to miss a dose. Skip any missed dose if it is almost time for your next dose. Do not use two doses at one time. What happens if I overdose? Seek emergency medical attention or call the Poison Help line at . An overdose of this medicine can be fatal, especially in a child or other person using the medicine without a prescription. Overdose symptoms may include nausea, vomiting, sweating, severe drowsiness, pinpoint pupils, slow breathing, or no breathing. Your doctor may recommend you get naloxone (a medicine to reverse an opioid overdose) and keep it with you at all times. A person caring for you can give the naloxone if you stop breathing or don't wake up. Your caregiver must still get emergency medical help and may need to perform CPR (cardiopulmonary resuscitation) on you while waiting for help to arrive. Anyone can buy naloxone from a pharmacy or local health department. Make sure any person caring for you knows where you keep naloxone and how to use it. What should I avoid while taking acetaminophen and oxycodone? Avoid driving or operating machinery until you know how this medicine will affect you. Dizziness or drowsiness can cause falls, accidents, or severe injuries. Do not drink alcohol. Dangerous side effects or could occur. Ask a doctor or pharmacist before using any other medicine that may contain acetaminophen (sometimes abbreviated as APAP). Taking certain medications together can lead to a fatal overdose. What are the possible side effects of acetaminophen and oxycodone? Get emergency medical help if you have signs of an allergic reaction: hives; difficulty breathing; swelling of your face, lips, tongue, or throat. Opioid medicine can slow or stop your breathing, and may occur. A person caring for you should give naloxone and/or seek emergency medical attention if you have slow breathing with long pauses, blue colored lips, or if you are hard to wake up. In rare cases, acetaminophen may cause a severe skin reaction that can be fatal. This could occur even if you have taken acetaminophen in the past and had no reaction. Stop taking this medicine and call your doctor right away if you have skin redness or a rash that spreads and causes blistering and peeling. Call your doctor at once if you have: ?? noisy breathing, sighing, shallow breathing, breathing that stops; ?? a light-headed feeling, like you might pass out; ?? weakness, tiredness, fever, unusual bruising or bleeding; ?? confusion, unusual thoughts or behavior; ?? problems with urination; ?? liver problems--nausea, upper stomach pain, tiredness, loss of appetite, dark urine, brook-colored stools, jaundice (yellowing of the skin or eyes); ?? low cortisol levels-- nausea, vomiting, loss of appetite, dizziness, worsening tiredness or weakness; or ?? high levels of serotonin in the body--agitation, hallucinations, fever, sweating, shivering, fast heart rate, muscle stiffness, twitching, loss of coordination, nausea, vomiting, diarrhea. Serious breathing problems may be more likely in older adults and in those who are debilitated or have wasting syndrome or chronic breathing disorders. Common side effects include: ?? dizziness, drowsiness, feeling tired; ?? feelings of extreme happiness or sadness; ?? nausea, vomiting, stomach pain; ?? constipation; or ?? headache. This is not a complete list of side effects and others may occur. Call your doctor for medical advice about side effects. You may report side effects to FDA at 7-226-TIH-9509. What other drugs will affect acetaminophen and oxycodone? You may have breathing problems or withdrawal symptoms if you start or stop taking certain other medicines. Tell your doctor if you also use an antibiotic, antifungal medication, heart or blood pressure medication, seizure medication, or medicine to treat HIV or hepatitis C. Opioid medication can interact with many other drugs and cause dangerous side effects or . Be sure your doctor knows if you also use: ?? cold or allergy medicines, bronchodilator asthma/COPD medication, or a diuretic ('water pill'); ?? medicines for motion sickness, irritable bowel syndrome, or overactive bladder; ?? other opioids--opioid pain medicine or prescription cough medicine; ?? a sedative like Valium--diazepam, alprazolam, lorazepam, Xanax, Klonopin, Versed, and others; ?? drugs that make you sleepy or slow your breathing--a sleeping pill, muscle relaxer, medicine to treat mood disorders or mental illness; ?? drugs that affect serotonin levels in your body--a stimulant, or medicine for depression, Parkinson's disease, migraine headaches, serious infections, or nausea and vomiting. This list is not complete. Other drugs may affect acetaminophen and oxycodone, including prescription and sfpi-afa-sslaeth medicines, vitamins, and herbal products. Not all possible interactions are listed here. Where can I get more information? Your doctor or pharmacist can provide more information about acetaminophen and oxycodone. Remember, keep this and all other medicines out of the reach of children, never share your medicines with others, and use this medication only for the indication prescribed. Every effort has been made to ensure that the information provided by [employer]') is accurate, up-to-date, and complete, but no guarantee is made to that effect. Drug information contained herein may be time sensitive. [employer] information has been compiled for use by healthcare practitioners and consumers in the [place] and therefore [employer] does not warrant that uses outside of the [place] are appropriate, unless specifically indicated otherwise. [employer] drug information does not endorse drugs, diagnose patients or recommend therapy. [employer] drug information is an informational resource designed to assist licensed healthcare practitioners in caring for their patients and/or to serve consumers viewing this service as a supplement to, and not a substitute for, the expertise, skill, knowledge and judgment of healthcare practitioners. The absence of a warning for a given drug or drug combination in no way should be construed to indicate that the drug or drug combination is safe, effective or appropriate for any given patient. [facility] does not assume any responsibility for any aspect of healthcare administered with the aid of information [facility] provides. The information contained herein is not intended to cover all possible uses, directions, precautions, warnings, drug interactions, allergic reactions, or adverse effects. If you have questions about the drugs you are taking, check with your doctor, nurse or pharmacist. Copyright 1591-7543 [facility]. Version: 20.03. Revision Date: 08/25/2020. Emergency Awareness and Preventative Care STROKE is an EMERGENCY Every Minute Counts Act FAST and Check for these signs: FACE Does the face look uneven? ARM Does one arm drift down? SPEECH Does their speech sound strange? TIME Call at any sign of stroke Stroke Risk Factors Atrial Fibrillation (irregular heartbeat) Diabetes Family history of stroke Heart Disease Heavy alcohol use High Blood Pressure High Cholesterol Physical inactivity and obesity Smoking Cigarette Smoking The facts are clear, cigarette smoking will shorten your life. Smoking can cause many illnesses along the way. As a healthcare provider, we recommend that you stop smoking. Assistance with quitting is available by contacting 6-213-GQBT-NOW. This is a free resource providing counseling, support, and referral. Or you may contact your personal physician. National Suicide Prevention Lifeline: The National Suicide Prevention Lifeline is a national network of local crisis centers that provides free and confidential emotional support to people in suicidal crisis or emotional distress 24 hours a day, 7 days a week. Don't Wait! Stop a Heart Attack Before it Starts What is a heart attack? A heart attack is damage or to a part of the heart from severely decreased or lack of blood flow to the heart. Over time, arteries can become narrow from the buildup of fat and cholesterol, which is called plaque. The plaque can rupture causing a blood clot to form. When the blood clot forms, the artery can become severely narrowed or completely blocked, causing a heart attack. Heart attack is the leading cause of in the [place]. 85% of muscle damage occurs within the first 2 hours. Delay in the recognition of heart attack symptoms increases the chances of . Know the early symptoms of a heart attack: Nausea Feeling of fullness in chest Jaw Pain Pain that travels down one or both arms Fatigue/being tired Anxiety Back Pain Chest pressure, squeezing, or discomfort Shortness of breath Sweating, or a cold sweat Feeling of impending doom There are unusual signs of a heart attack, too! Women, the elderly, and diabetics may present with atypical symptoms: Fainting/dizziness Weakness Confusion Risk Factors for a Heart Attack Some heart disease risk factors, such as age and family history, cannot be changed. Others, like smoking and lack of exercise, can be changed. Smoking High Cholesterol High Blood Pressure Family History Obesity Age Gender (Males are at higher risk) Lack of Exercise Diabetes Diet Stress Excessive Alcohol Intake If you or someone you know is experiencing the signs and symptoms of a heart attack, DON???T DELAY. Call immediately and seek help. If someone collapses, perform CPR! Do not attempt to drive if you are having symptoms of heart attack. Hands-Only CPR Why Hands-Only CPR? Hands-Only CPR has been shown to be as effective as conventional CPR for cardiac arrests that occur outside of a hospital. Survival depends on immediately receiving CPR from someone nearby. How do you perform Hands-Only CPR? There are two easy steps: Call if you see a teen or adult collapse Push hard and fast in the center of the chest at a beat of 100 beats per minute. Save a life! 4 WAYS TO GET AHEAD OF SEPSIS SEPSIS is a MEDICAL EMERGENCY. Time matters! Infections put you and your family at risk for a life-threatening condition called sepsis. Sepsis is the body's extreme response to an infection. It is life-threatening, and without timely treatment, sepsis can rapidly lead to tissue damage, organ failure, and . Sepsis happens when an infection you already have-in your skin, lungs, urinary tract or somewhere else-triggers a chain reaction throughout your body. 1 PREVENT INFECTIONS Take good care of chronic conditions. Talk to your doctor about getting the recommended vaccines. 2 PRACTICE GOOD HYGIENE Wash your hands frequently. Keep cuts or open sores clean and covered until they are healed. 3 KNOW THE SYMPTOMS Confusion or disorientation Shortness of breath High heart rate Fever, shivering, or feeling very cold Extreme pain or discomfort Clammy or sweaty skin 4 ACT FAST Get medical care IMMEDIATELY if you suspect sepsis or if you have an infection that is not getting better or is getting worse. To learn more about sepsis and how to prevent infections, visit www.cdc.gov/sepsis. Test Results Laboratory or Other Results This Visit (last charted value for your 11/06/2020 visit) Hematology 11/07/2020 5:17 AM WBC: 10.4 K/uL -- Normal range between ( 4.5 and 10.5 ) RBC: 3.79 Million/uL -- Normal range between ( 3.93 and 5.22 ) Hct: 35.4 % -- Normal range between ( 34.1 and 44.9 ) Hgb: 11.8 g/dL -- Normal range between ( 11.2 and 15.7 ) Platelet Count: 234 K/uL -- Normal range between ( 163 and 369 ) MCH: 31.1 pg -- Normal range between ( 25.6 and 32.2 ) MCHC: 33.3 Gram/dL -- Normal range between ( 32.2 and 36.5 ) MCV: 93.4 fL -- Normal range between ( 79.0 and 94.8 ) Slide Review: No RDW: 12.4 % -- Normal range between ( 11.7 and 14.9 ) MPV: 9.4 fL -- Normal range between ( 9.4 and 12.4 ) 10/19/2020 12:30 PM Eos %: 1.6 % -- Normal range between ( 0.0 and 7.0 ) Sully #: 0.65 K/uL -- Normal range between ( 0.16 and 1.00 ) Eos #: 0.12 x10(3)/uL -- Normal range between ( 0.00 and 0.80 ) Sully %: 8.7 % -- Normal range between ( 3.0 and 9.0 ) Baso %: 0.7 % -- Normal range between ( 0.0 and 1.5 ) Baso #: 0.05 x10(3)/uL -- Normal range between ( 0.00 and 0.20 ) Neut %: 70.5 % -- Normal range between ( 34.0 and 71.0 ) Neut #: 5.30 K/uL -- Normal range between ( 1.56 and 6.13 ) Lymph %: 18.0 % -- Normal range between ( 19.3 and 53.1 ) Lymph #: 1.35 x10(3)/uL -- Normal range between ( 1.00 and 3.90 ) IG#: 0.04 x10(3)/uL -- Normal range between ( 0.00 and 0.05 ) IG%: 0.50 % -- Normal range between ( 0.00 and 0.60 ) Microbiology 11/03/2020 10:30 AM SARS-CoV-2 (COVID19 PCR): Negative 10/19/2020 12:30 PM MRSA Surveillance: See Result General Chemistry 11/07/2020 5:17 AM Creatinine Level: 0.70 mg/dL -- Normal range between ( 0.55 and 1.02 ) Sodium Level: 138 mmol/L -- Normal range between ( 136 and 146 ) Potassium Level: 3.7 mmol/L -- Normal range between ( 3.5 and 5.1 ) Chloride Level: 106 mmol/L -- Normal range between ( 102 and 112 ) Carbon Dioxide Level: 27 mmol/L -- Normal range between ( 21 and 32 ) Anion Gap: 9 -- Normal range between ( 9 and 20 ) Bun/Creatinine: 21.4 -- Normal range between ( 8.0 and 20.0 ) Calcium Level: 8.9 mg/dL -- Normal range between ( 8.4 and 10.1 ) eGFR : >60 mL/min/1.73m2 eGFR NonAfrican: >60 mL/min/1.73m2 Glucose Level: 110 mg/dL -- Normal range between ( 74 and 106 ) Blood Urea Nitrogen: 15 mg/dL -- Normal range between ( 7 and 22 ) 10/19/2020 12:30 PM Hgb A1C: 6.0 % eAVG Glucose: 126 mg/dL Coagulation 10/19/2020 12:30 PM INR: 1.0 -- Normal range between ( 0.9 and 1.2 ) PTT: 25.0 Second(s) -- Normal range between ( 22.0 and 33.0 ) PT: 10.0 Second(s) -- Normal range between ( 9.2 and 12.0 ) Patient Name:MELISSA WALKER V I have received and understand this information and was given the opportunity to ask questions. Patient/Balance Bridge Assembler Name: Patient/Balance Bridge Assembler Signature: Relationship to Patient: Clinician/Hospital Balance Bridge Assembler Signature: Date: documented in this encounter Plan of Treatment Not on file documented as of this encounter Visit Diagnoses Not on filedocumented in this encounter Care Teams Hemodialysis Charge Nurse Relationship Specialty Start Date End Date Michelet Boggs MD [address] [facility] [address] [place] [phone] PCP - General Family Medicine 09/05/22 documented as of this encounter
--- OUTSIDE RECORDS SUMMARY | 2025-03-02 10:55 | XMS_ITS | Encounter Summary ---
Author Organization [employer] ([place], [place], [place], [place]) Address [address] [place] [address] Care Team Providers Care Salesforce Business Analyst Name Role Phone Matheus Boggs MD Primary Care Provider + [phone] Encounter Details Date Type Department Care Team (Late st Contact Info) Description 11/07/2020 Transcribed Document [facility] [place] Family Medicine [facility] [place] [address] ProviderCristopher MD [address] [place] [id number] Social History Tobacco Use Types Packs/Day [...] Conversion Note - Cristopher ProviderMD - 11/07/2020 4:35 PM CDT Final Discharge Planning Entered On: 11/07/2020 16:36 EDT Performed On: 11/07/2020 16:35 EDT by NAGI TAPIA RN-Quality Assurance Auditor Final Discharge Planning Discharge Arrangements : Patient Post-Acute Information Patient Name: MELISSA WALKER V Gender: Female : 45 Age: 75 Years No Post-Acute Placement(s) Listed No Post-Acute Service(s) Listed No [place] Referral(s) Listed Patient Offered Choice/Affiliations Explained : Yes Designation of Choice Signed : Yes Important Medicare Message Reviewed With : Other: Outpatient Transportation Needs : Family/Friend Follow Up Appointment Scheduled : Yes Is Patient High/Moderate Readmission Risk? : No Patient/Family Notified of Plan : Yes Is Patient Ready for Discharge? : Yes Physician Notified Patient is Ready for Discharge? : Yes Discharge To Care Management : Home Health Services (Related/SOC within 3 days)-06 NAGI TAPIA RN-Quality Assurance Auditor - 11/07/2020 16:35 EDT Electronically signed by Kee [facility] Conversion Drier Attendant Cerner at 11/06/2022 12:49 PM CDT documented in this encounter Plan of Treatment Not on file documented as of this encounter Visit Diagnoses Not on filedocumented in this encounter Care Teams Salesforce Business Analyst Relationship Specialty Start Date End Date Matheus Boggs MD [address] [facility] [address] [place] [phone] PCP - General Family Medicine 09/05/22 documented as of this encounter
--- OUTSIDE RECORDS SUMMARY | 2025-03-02 10:55 | XMS_ITS | Encounter Summary ---
Author Organization [employer] ([place], [place], [place], [place]) Address [address] [place] [address] Care Team Providers Care Rework Machine Operator Name Role Phone Matheus Boggs MD Primary Care Provider + [phone] Encounter Details Date Type Department Care Team (Late st Contact Info) Description 01/31/2020 Transcribed Document [facility] [place] [facility] [place] [address] ProviderCristopher MD [address] [place] [id number] Social History Tobacco Use Types Packs/Day [...] Conversion Note - Cristopher ProviderMD - 01/31/2020 12:46 PM CDT Education-(VTE) / (DVT) Entered On: 01/31/2020 15:31 EDT Performed On: 01/31/2020 12:46 EDT by Jaida Larios Rn Teaching/Learning Assessment Barriers To Learning : None evident Individuals Taught : Patient, Child Readiness to Learn : Cooperative Readiness to Learn : Explanation Learning Style Preferences Patient : Verbal explanation Learning Style Preferences Family : Verbal explanation Jaida Larios Rn - 01/31/2020 15:31 EDT documented in this encounter Plan of Treatment Not on file documented as of this encounter Visit Diagnoses Not on filedocumented in this encounter Care Teams Rework Machine Operator Relationship Specialty Start Date End Date Matheus Boggs MD [address] [place] [address] [place] [phone] PCP - General Family Medicine 09/05/22 documented as of this encounter
--- OUTSIDE RECORDS SUMMARY | 2025-03-02 10:55 | XMS_ITS | Encounter Summary ---
Author Organization [employer] ([place], [place], [place], [place]) Address [address] [place] [address] Care Team Providers Care Warehouse Administrative Assistant Name Role Phone Matheus Boggs MD Primary Care Provider + [phone] Encounter Details Date Type Department Care Team (Late st Contact Info) Description 01/31/2020 Transcribed Document [facility] [address] [place] [address] Lizz Gonzalez MD [facility] [place] [address] Social History Tobacco Use Types Packs/Day Years Used Date Smoking Tobacco: Never Assessed Comments Unknown Sex and Gender Information Value Date Recorded Sex Assigned at Female 12/04/2023 11:21 PM CDT Legal Sex Female 7:28 PM CDT Gender Identity Female 12/04/2023 11:21 PM CDT Sexual Orientation Not on file documented as of this encounter Miscellaneous Notes * Cerner Conversion Note - Lizz Gonzalez MD - 01/31/2020 12:34 PM EDT Patient: MARY WALKER V Age: 74 Years Sex: Female : 1945 *Operation right total knee arthroplasty Indication for Surgery The patient has end-stage osteoarthritis of the above-mentioned knee. They have otherwise failed conservative measures and now present for total knee arthroplasty. The risks benefits and alternatives have been explained to the patient in detail and they have voiced their agreement. *Preoperative Diagnosis Osteoarthritis right knee *Postoperative Diagnosis Osteoarthritis right knee *Surgeon(s) Surgeon: Carlos Moving Consultant: Lorenzo *Procedure Narrative Patient identified in the preoperative holding and appropriate lower extremity was marked. Patient was then transferred to the operating theater, general anesthesia was induced by attending Anesthesia staff. Patient was given appropriate preop antibiotic prophylaxis as well as 1 g intravenous tranexamic acid. Tourniquet was placed in the proximal aspect of the thigh,. Leg prepped and draped in usual sterile fashion. Time-out was performed, appropriate patient and operative extremity were confirmed. Leg was exsanguinated with an Esmarch bandage, tourniquet inflated to 300 mmHg. Standard midline incision and medial parapatellar arthrotomy were performed. Standard medial release. Synovium, fat pad, and other soft tissues were resected. Osteophytes removed from the periphery of the femur as well as the intercondylar notch. The cruciates were resected. Next, distal femoral pilot boat deckhand hole was drilled and the intramedullary guide arun was placed and pinned. Distal femur was cut. Next, proximal tibia was exposed. The extramedullary guide placed perpendicular to the mechanical axis and the tibia set to 3 degrees of slope. Set to remove 10 mm off the lateral side and the proximal tibia was cut. We then proceeded to balance the knee in extension with releases as noted above. Next, knee was flexed up. Epicondylar axis marked with a Bovie. Femur was sized. The [employer] gap bead forming machine set up operator was placed and tensed. Posterior condyle resection as noted above. Drill holes made through the bead forming machine set up operator and the appropriately sized four-in-one block placed in those holes. Anterior, posterior, and chamfer cuts were then made. Balance rechecked at 90 and 0 degrees, both of which were appropriate. The knee flexed 90 degrees, laminar spreaders were placed. Meniscus and posterior condylar osteophytes were removed. Next, the proximal tibia was exposed. and sized. The tibial guide was pinned in the appropriate amount of external rotation centered over the medial third of the tibial tubercle. The keel was drilled and punched. Trials were placed, overhanging osteophytes were removed. The construct was tested for stability, which was found to be excellent throughout range of motion. Next, patella was everted, measured, and resected freehand. Lug holes drilled, trial button placed, the construct tracked very well. All remaining trials were removed. Sclerotic bone was perforated with a drill. Exposed bony ends were thoroughly irrigated and dried. Cementation of final components took place in a single stage using high viscosity Simplex cement. Base plate was irrigated, and the final polyethelene insert was placed. Care taken to ensure that the locking mechanism had engaged. Knee was held in place until complete cement curing.. During this time, the extensor mechanism and other soft tissues were infiltrated with a pain cocktail. Following complete cement curing, the wound was thoroughly irrigated with dilute Betadine lavage and normal saline. 1 g vancomycin powder placed in the wound. The arthrotomy closed with number #1 Stratafix. 2 g of topical tranexamic acid was then injected into the joint. Skin closed in layers with Vicryl, Stratafix, and Dermabond. Wound was covered with Aquacel dressing. Next, drapes were removed. [facility]. Compression stocking and Cryo/Cuff placed in the operative extremity. The patient was then extubated without incident, and taken to PACU in stable condition. All instruments, sponge, needle counts correct at the case end of the case. Drains/Packs Used None Anesthesia General endotracheal anesthesia with adductor canal and sciatic nerve blocks *Estimated Blood Loss 50 mL *Findings Abx: 2g Ancef Implants: Eren Persona femoral component: 6 narrow CR Eren Persona tibial baseplate: D Tibial insert: 10 mm MC Patellar button: 29 mm symmetric Pre op deformity: 3 deg varus Correctable: yes Flexion contracture: none Distal femoral cut: 6 deg, 9 mm Proximal tibial cut: 10 mm Releases in extension: Deep MCL Initial extension gap: 19 mm Posterior condylar resection: 19 mm Pre-reconstructed patellar thickness: 22.5 mm Post-reconstructed patellar thickness: 22 mm Stability: 0- 0 mm 20- 1 mm symmetric m/l 90- 0 mm Patellar tracking: normal Lateral release: no ROM with capsule closed: 0-120 Tourniquet time: 45 min Other: none *Specimen(s) Bone to pathology Complications None Technique Cemented Eren medial congruent TKA Date of Service Date/Time of Service SN - Proc - Start Time: 01/31/20 10:35:00 (01/31/20 10:36:27) documented in this encounter Plan of Treatment Not on file documented as of this encounter Visit Diagnoses Not on filedocumented in this encounter Care Teams Warehouse Administrative Assistant Relationship Specialty Start Date End Date Matheus Boggs MD [address] [place] [facility] [address] [place] [address] PCP - General Family Medicine 09/05/22 documented as of this encounter
--- OUTSIDE RECORDS SUMMARY | 2025-03-02 10:55 | XMS_ITS | Clinical Summary ---
Author Organization [employer] ([place], [place], [place], [place]) Address [address] [place] [address] Care Team Providers Care Immigration Case Manager Name Role Phone Matheus Boggs MD Primary Care Provider [phone] Allergies Active Allergy Reactions Criticality Noted Date Comments Aspirin 10/04/2013 Sulfamethoxazole-Trimethoprim 2014 Codeine Phosphate 10/04/2013 Nsaids (Non-Steroidal Anti-I nflammatory Drug) 10/04/2013 Oxycodone 10/04/2013 Penicillin 10/04/2013 Oxycodone-Aspirin 10/04/2013 Ioiceeb-Eql-Moq Reductase Inhibitors 10/04/2013 Sulfa (Sulfonamide Antibiotics) 09/18 Medications acebutoloL (SECTRAL) 200 MG capsule Take 400 mg by mouth every 12 (twelve) hours . Active fluticasone propionate (FLOVENT DISKUS) 50 mcg/actuation diskus inhaler Inhale 1 puff by mouth via inhaler 2 (two) times daily. Active levothyroxine (SYNTHROID, LEVOTHROID) 100 MCG tablet Take 125 mcg by mouth Every morning on an empty stomach . Active meclizine (ANTIVERT) 25 MG tablet Take 25 mg by mouth 3 (three) times daily as needed. Active montelukast (SINGULAIR) 10 mg tablet Take 10 mg by mouth nightly. Active albuterol HFA (VENTOLIN HFA) 90 mcg/actuation inhaler Inhale 1 puff by mouth via inhaler every 6 (six) hours as needed. Active beclomethasone (QVAR) 40 mcg/actuation inhaler Inhale 2 puffs by mouth via inhaler 2 (two) times daily. Active telmisartan (MICARDIS) 80 MG tablet Take 80 mg by mouth daily. Active amLODIPine (NORVASC) 5 MG tablet Take 5 mg by mouth daily. Active liothyronine (CYTOMEL) 5 MCG tablet Take 5 mcg by mouth daily. Active fexofenadine (OKSANA) 180 MG tablet Take 180 mg by mouth daily. Active acetaminophen (TYLENOL ARTHRITIS ORAL) Take by mouth. Active nitrofurantoin (MACRODANTIN) 50 MG capsule Take 50 mg by mouth 4 (four) times daily. Active fluticasone furoate-vilante roL (Breo Ellipta) 100-25 mcg/dose DsDv Inhale 1 puff by mouth via inhaler daily. Active omega-3 acid ethyl esters (LOVAZA) 1 gram capsule Take 2 g by mouth 2 (two) times daily. Active omeprazole (PriLOSEC OTC) 20 MG tablet Take 20 mg by mouth daily. Active Active Problems Problem Noted Date Diagnosed Date CAD (coronary artery disease) Overview (09/05/2022): Nuclear stress 02/21/2012: abnormal study. Mild anterior reversibility. EF 81%. [facility] 03/03/2012: Patent coronaries. Mild CAD. EF 55% Asthma HTN (hypertension) Hypothyroidism Social History Tobacco Use Types Packs/Day Years Used Date Smoking Tobacco: Never Smokeless Tobacco: Never Alcohol Use Standard Drinks/Week Comments Never 0 (1 standard drink = 0.6 oz pur e alcohol) Food Insecurity Answer Date Recorded Food run out past 12 months Not on file 07/21 Food did not last past 12 months Not on file 08/08/2023 Employment Answer Date Recorded Help finding and keeping a job Not on file 0 08/08/2023 Family and Community Support Answer Bandar e Recorded Help with Day to Day Activities Not on file 08/08/2023 Feeling Lonely or Isolated Not on file 08/08 Educational Attainment Answer Date Dakotah rded Speak language other than British at home Not on file 08/08/2023 Want help with school or training Not on file 08/08/2023 Substance Use Answer Date Recorded Used prescription meds for non-medical reasons N ot on file 08/08/2023 Used illegal drugs past 12 months Not on file 08/08/2023 Comments Unknown Sex and Gender Information Value Date Recorded Sex Assigned at Female 12/04/2023 11:21 PM CDT Legal Sex Female 7:28 PM CDT Gender Identity Female 12/04/2023 11:21 PM CDT Sexual Orientation Not on file Last Filed Vital Signs Vital Sign Reading Time Taken Comments Blood Pressure 120/80 09/09/2022 10:35 AM EST Pulse 58 09/09/2022 10:35 AM EST Temperature - - Respiratory Rate - - Oxygen Saturation - - Inhaled Oxygen Concentration - - Weight 82.1 kg (181 lb) 09/09/2022 10:35 AM EST Height 154.9 cm (5' 1 ) 09/09/2022 10:35 AM EST Body Mass Index 34.2 09/09/2022 10:35 AM EST Plan of Treatment Health Maintenance Due Date Last Done Comments DXA SCAN 1945 Depression Screening (12+) 1957 Hepatitis C Screening 1963 Shingles Vaccine (Zoster) (1 of 2) 1995 Medicare Initial AWV G0438 05/22/2011 Respiratory Syncytial Virus (RSV) Adult or (1 - 1-dose 75+ series) 2020 Pneumococcal 50+ years (2 of 2 - PCV) 05/02/2022 05/02/2021 Tobacco Cessation Counseling and Screening (12+) 09/09/2023 09/09/2022 COVID-19 VACCINE (5 - 2023-2 5 season) 2024 01/28/2022, 06/04/2021, 08/24/2020, Additional history exists Falls Risk Screening 07/21/2024 Influenza Vaccine (#1) 2025 , 05/02/2021, 04/25/2020, Additional history exists DTAP/TDAP/TD VACCINES (2 - T d or Tdap) 01/07/2027 01/07/2017 [address] [place] [address] [place] [address] MCR SUPP [facility] CLAIMS Care Teams Immigration Case Manager Relationship Specialty Start Date End Date Matheus Boggs MD [address] [facility] [address] [place] [address] PCP - General Family Medicine 09/05/22
--- OUTSIDE RECORDS SUMMARY | 2025-03-02 10:55 | XMS_ITS | Encounter Summary ---
Author Organization [employer] ([place], [place], [place], [place]) Address [address] [place] [address] Care Team Providers Care Railroad Track Repair Supervisor Name Role Phone Matheus Boggs MD Primary Care Provider + [phone] Encounter Details Date Type Department Care Team (Late st Contact Info) Description 11/07/2020 Transcribed Document [facility] [place] [facility] [place] [address] ProviderCristopher MD [address] [place] [address] Social History Tobacco Use Types Packs/Day [...] Cristopher ProviderMD - 11/07/2020 4:35 PM CDT On Going Discharge Planning Entered On: 11/07/2020 16:35 EDT Performed On: 11/07/2020 16:35 EDT by NAGI TAPIA RN-Electroencephalogram TechnologistChild Guidance Counselor Progress Note Discharge Arrangements : Patient Post-Acute Information Patient Name: MELISSA WALKER V Gender: Female : [birth year] Age: 75 Years No Post-Acute Placement(s) Listed No Post-Acute Service(s) Listed No [place] Referral(s) Listed Discharge Options Discussed with Patient : Home Health Barriers to Discharge Unresolved : All resolved Designation of Choice Signed : Yes Patient Offered Choice/Affiliations Explained : Yes List/Info Provided Pt/Fam/Support Person : Home health Were Referrals Sent to Post Acute Providers : Yes Physician Agreeable to Move Forward with D/C Plan? : Yes Did you Attend Multidisciplinary Rounds? : Yes NAGI TAPIA RN-Electroencephalogram Technologist - 11/07/2020 16:35 EDT Electronically signed by [facility] Conversion Copywriter Cerner at 11/06/2022 1:02 PM CDT documented in this encounter Plan of Treatment Not on file documented as of this encounter Visit Diagnoses Not on filedocumented in this encounter Care Teams Railroad Track Repair Supervisor Relationship Specialty Start Date End Date Matheus Boggs MD [address] [facility] [address] [place] [address] PCP - General Family Medicine 09/05/22 documented as of this encounter
--- OUTSIDE RECORDS SUMMARY | 2025-03-02 10:55 | XMS_ITS | Encounter Summary ---
Author Organization [employer] ([place], [place], [place], [place]) Address [address] [place] [address] Care Team Providers Care Blade Grader Operator Name Role Phone Michelet Boggs MD Primary Care Provider + [phone] Encounter Details Date Type Department Care Team (Late st Contact Info) Description 11/07/2020 Transcribed Document [facility] [place] [place] Family Medicine [facility] [place] [address] ProviderCristopher MD [address] [place] [address] Social History Tobacco Use Types Packs/Day [...] Conversion Note - Cristopher ProviderMD - 11/07/2020 4:32 PM CDT Initial Discharge Planning Entered On: 11/07/2020 16:35 EDT Performed On: 11/07/2020 16:32 EDT by NAGI TAPIA RN-Nurse Gynecology Initial Assessment I Previously Documented Living Environment : No qualifying data available. Living Situation : Home Patient Lives With : Alone Is the Patient a Caregiver at Home? : No Emergency Contact #1 : Janiya White Emergency Contact #1 ` Emergency Contact #1 Relationship : daughter` Emergency Contact #2 : fay Emergency Contact #2 Phone Number : `[phone] Emergency Contact #2 Relationship : `daughter Enter Doctors Name : MICHELET BOGGS (REF) T Does Patient have PCP Listed? : Yes NAGI TAPIA RN-Nurse Gynecology - 11/07/2020 16:32 EDT Initial Assessment II Sensory and Motor Deficits : None Current Home Treatments and Equipment : Bedside commode, Walker Does the Patient have a Floor to SNF Benefit? : No NAGI TAPIA RN-Nurse Gynecology - 11/07/2020 16:32 EDT Discharge Needs I Anticipated Discharge Date : 11/07/2020 EDT Anticipated Discharge To, CM : Home with home health Current Home Treatment/Equipment : Current Home Treatment/Equipment No qualifying data available. Post Acute/Home Treatments : None Documentation Status Complete : Yes NAGI TAPIA RN-Nurse Gynecology - 11/07/2020 16:32 EDT Discharge Needs II Professional Skilled Services : Professional Skilled Services No qualifying data available. Needs Assistance with Transportation : No Discharge Options Discussed with Patient : Home Health NAGI TAPIA RN-Nurse Gynecology - 11/07/2020 16:32 EDT Narrative Note Narrative Note : 75yo female pt s/p LTKA. Met with pt at bedside to discuss DCP. 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 Pt chose [facility] for [facility] again like last time. Referral sent via [facility] and confirmed acceptance and SOC tomorrow 11/08 with Ashley in intake. No other CM needs noted. NAGI TAPIA RN-Nurse Gynecology - 11/07/2020 16:32 EDT documented in this encounter Plan of Treatment Not on file documented as of this encounter Visit Diagnoses Not on filedocumented in this encounter Care Teams Blade Grader Operator Relationship Specialty Start Date End Date Michelet Boggs MD [address] [place] [address] [place] [phone] PCP - General Family Medicine 09/05/22 documented as of this encounter
--- OUTSIDE RECORDS SUMMARY | 2025-03-02 10:55 | XMS_ITS | Encounter Summary ---
Author Organization [employer] ([place], [place], [place], [place]) Address [address] [place] [address] Care Team Providers Care Highway Landscape Architect Name Role Phone Matheus Boggs MD Primary Care Provider + [phone] Encounter Details Date Type Department Care Team (Late st Contact Info) Description 11/07/2020 Transcribed Document [facility] [place] [address] ProviderCristopher MD [address] [place] [address] Social History Tobacco Use Types Packs/Day [...] Note - Cristopher ProviderMD - 11/07/2020 12:00 PM CDT Pain Assessment Entered On: 11/07/2020 15:57 EDT Performed On: 11/07/2020 12:46 EDT by Tania Pérez RN Intervention Information: acetaminophen Performed by Tania Pérez RN on 11/07/2020 11:46:00 EDT acetaminophen,1000mg Oral Pain Assessment Pain Assessment [...] on filedocumented in this encounter Care Teams Highway Landscape Architect Relationship Specialty Start Date End Date Matheus Boggs MD [address] [place] [address] PCP - General Family Medicine 09/05/22 documented as of this encounter
--- OUTSIDE RECORDS SUMMARY | 2025-03-02 10:56 | XMS_ITS | Encounter Summary ---
Author Organization [employer] ([place], [place], [place], [place]) Address [address] [place] [address] Care Team Providers Care Air Crew Member Name Role Phone Matheus Boggs MD Primary Care Provider + [phone] Encounter Details Date Type Department Care Team (Late st Contact Info) Description 02/01/2020 Transcribed Document [facility] [place] Counts include 234 beds at the [facility] [place] [address] ProviderCristopher MD [address] [place], [place] [id number] Social History Tobacco Use Types Packs/Day Years [...] Conversion Note - Cristopher Kent MD - 02/01/2020 9:37 AM CDT Patient Education Materials Follows: Discharge Instructions for Total Knee Replacement Your Knee Incision: Do not swim, soak or bathe in a tub until cleared by the surgeon. If you have a light brown dressing: Keep your dressing in place for 7-10 days. This type of dressing is water resistant. Please check the edges of the dressing. If they are in place, you may shower until the dressing is removed. The home health Physical Therapist or Nurse will remove the dressing after 7-10 days. Or your surgeon will remove it at your return appointment. Then your incision may be open to air. It will be best to sponge bathe from the time the dressing is removed until your return appointment. If you have a dry, white dressing: Change your dressing when needed (if the dressing is dirty or old). Wash your hands before and after changing the dressing. Activity ?? You may put weight on your leg when you walk, unless your surgeon tells you not differently. Use your walker until the therapist or surgeon say you do not need it anymore. Continue your exercises from physical therapy. ?? Complete straightening exercises (whether using Zero Knee Foam or ???Tubs?? ) AT LEAST three times a day for 30 minutes, keep toes pointed to ceiling. Keep knee straight and extended unless you are doing bending exercises. No pillow under knee. ?? Stay active, get up every 1-2 hours, walk short distances, and walk a little more each week. No driving until cleared by your surgeon. ?? If your surgeon has ordered support hose, wear them for 6 weeks in order to prevent blood clots. Take them off 1-2 times per day for about 30 minutes-1 hour. Check your skin for red or open areas under the hose. They can be bought online and at many pharmacies, be sure that compression is 15-20mmHg and that they are thigh-high. ?? If you have a CPM, use it 2 hours 2x/day. ?? For swelling, elevate your leg above your heart. Remember to keep knee straight and NOT bent, unless you are doing your bending exercises. ?? Cold therapy 30 minutes on and 30 minutes off with cloth or clothing between skin and cold wrap. General Instructions: ?? Eat 25-35 grams of fiber every day. Drink 8-10 glasses of water a day and take stool softeners while you are on pain medication, since they cause constipation. If you do not have a bowel movement in 3-4 days after your surgery, try an over the counter laxative, such as milk of magnesia, miralax, dulcolax tablet or suppository, or fleets enema. If you do not have success after this, contact your home health nurse or surgeon office. ?? Continue using your incentive spirometer to keep fever and lung infection away. Aim for 10 breaths every hour while you are awake. ?? Take pain medicine as needed, especially before therapy. ?? Let your doctors and dentist know you have a prosthetic knee. They may need to give you an antibiotic before a procedure. Call Your Surgeon: Infection: Your hip has increased swelling that does not get better with time, propping up your leg and with rest. Your incision has a foul smell or your incision begins to open. Your incision gets red, is warm or has increased drainage after 2 days. You have a fever over 101 degrees for more than 24 hours. A Blood Clot: You have increased swelling, redness, warmth or pain in your calf. A Fall: You fall down without obvious injury. Call 911: You have sudden chest pain and/or difficulty breathing You fall and cannot get up Stroke signs and symptoms: Facial droop, uneven smile, arm numbness, arm weakness, slurred speech, difficulty speaking or understanding CALL FIRST! Unless you are experiencing life-threatening [...] of Dr. Gonzalez or Dr. Arthur, call [phone] If you are a patient of Dr. German, call [phone] Nurse Navigator: Ivanna Carrasco Office: [phone]; ; available during regular business hours documented in this encounter Plan of Treatment Not on file documented as of this encounter Visit Diagnoses Not on filedocumented in this encounter Care Teams Air Crew Member Relationship Specialty Start Date End Date Matheus Boggs MD [address] [place] [facility] [address] [place] [phone] PCP - General Family Medicine 09/05/22 documented as of this encounter
--- OUTSIDE RECORDS SUMMARY | 2025-03-02 10:56 | XMS_ITS | Encounter Summary ---
Author Organization [id number] ([place], [place], [place], [place]) Address [address] [place] [address] Care Team Providers Care Payroll Analyst Name Role Phone Matheus Boggs MD Primary Care Provider + [phone] Encounter Details Date Type Department Care Team (Late st Contact Info) Description 01/31/2020 Transcribed Document [facility] [place] Family Medicine [address] [place] [address] ProviderCristopher MD [address] [place] [address] Social History Tobacco Use Types [...] Cristopher ProviderMD - 01/31/2020 12:46 PM CDT Evaluation, Occupational Therapy Entered On: 01/31/2020 14:33 EDT Performed On: 01/31/2020 13:45 EDT by Malinda Phillips STUDENT-OCCUPATIONAL THERAPIST General Information, OT Visit Type, OT : Initial evaluation Malinda Phillips STUDENT-OCCUPATIONAL THERAPIST - 01/31/2020 14:28 EDT Patient Orders : Order Date Order Ordering 01/31/2020 12:47 OT Evaluation and Treatment Ordered By: DEAN ALVA MD-ORT 01/31/2020 12:47 OT Treatment Instructions Ordered By: DEAN ALVA MD-ORT Active Diagnoses : No Qualifying Diagnoses HANNAH PEREZ OTR/Marianela - 01/31/2020 14:35 EDT Therapy Diagnosis, OT : Decreased independence with ADLs s/p R TKA Onset of Problem, OT : 01/31/2020 EDT Malinda Phillips STUDENT-OCCUPATIONAL THERAPIST - 01/31/2020 14:28 EDT Admission Date : 01/31/2020 06:33 HANNAH PEREZ OTR/Marianela - 01/31/2020 14:35 EDT Co-treated by, OT : Physical Therapist Malinda Phillips STUDENT-OCCUPATIONAL THERAPIST - 01/31/2020 14:28 EDT Personal Devices : Personal Devices No Devices Recorded Assistive Devices : Assistive Devices No Devices Recorded HANNAH PEREZ OTR/Marianela - 01/31/2020 14:35 EDT General Information Comment, OT : R Malinda Howell STUDENT-OCCUPATIONAL THERAPIST - 01/31/2020 14:28 EDT General Status Patient Received Status : Supine in bed Treatment Start Time : 01/31/2020 13:30 EDT Patient Left Status : Up in chair, RN/PCT informed, All needs met and within reach Treatment End Time : 01/31/2020 13:45 EDT Treatment Time : 15 Minute(s) Malinda Phillips STUDENT-OCCUPATIONAL THERAPIST - 01/31/2020 14:28 EDT History and Environment, OT Living Situation, Therapy : Home Patient Lives With : Spouse Persons Assisting Patient at Home : Child/Children, Friend(s) Professional Skilled Services : None Persons Providing Information : Patient Home Setup : Basement, One story Stairs : No Malinda Phillips STUDENT-OCCUPATIONAL THERAPIST - 01/31/2020 14:28 EDT Upper Extremity Right UE Active ROM : WFL Right UE Strength : WFL Left UE Active ROM : WFL Left UE Strength : WFL Upper Extremity Strength Impaired : No Right UE Strength : WFL Left UE Strength : WFL Malinda Phillips STUDENT-OCCUPATIONAL THERAPIST - 01/31/2020 14:28 EDT Self Care/Home Management, OT Self Feeding Assist Level, OT : Supervision or set-up Grooming Assist Level, OT : Supervision or set-up Bathing Assist Level, OT : Assist, moderate Upper Body Dressing Assist Level, OT : Supervision or set-up Lower Body Dressing Assist Level, OT : Assist, moderate Toileting Assist Level : Assist, minimal Toilet Transfer Assist Level : Assist, minimal Malinda Phillips STUDENT-OCCUPATIONAL THERAPIST - 01/31/2020 14:28 EDT Functional Mobility Mobility Grid Supine to Sit : Supervision/set-up Sit to Stand : Rehab Minimal assistance Bed to Chair : Rehab Minimal assistance Stand to Sit : Rehab Minimal assistance HANNAH PEREZ OTR/Marianela - 01/31/2020 14:35 EDT Cognition Assessment, OT Orientation : Oriented x 4 Malinda Phillips STUDENT-OCCUPATIONAL THERAPIST - 01/31/2020 14:28 EDT Indication Assessment, OT Occupational Therapy Indicated : Yes Problem List, OT : Impaired, bed mobility, Impaired, activities daily living, Impaired, endurance tolerance, Impaired functional mobility, Impaired, joint mobility, Impaired, strength, Impaired, transfers Potential Barriers, OT : None evident Rehabilitation Potential, OT : Good Malinda Phillips STUDENT-OCCUPATIONAL THERAPIST - 01/31/2020 14:28 EDT Plan of Care, OT OT Tx Plan/Goals Established w Patient : Yes OT Frequency Rehab : Five days per week OT Duration Rehab : Fourteen days OT Treatments Planned : Activities of daily living, Functional mobility training, Therapeutic activities Malinda Phillips STUDENT-OCCUPATIONAL THERAPIST - 01/31/2020 14:28 EDT Engine Watchman Goals, OT Grooming LTG Grid Goal #1 Activity : Grooming Assist : Independent, modified Date to Meet : 02/14/2020 EDT Goal Status : Initial goal Malinda Phillips STUDENT-OCCUPATIONAL THERAPIST - 01/31/2020 14:28 EDT Dressing, Lower Body LTG Grid Goal #1 Activity : Dressing, Lower Body Assist : Independent, modified Date to Meet : 02/14/2020 EDT Goal Status : Initial goal Malinda Phillips STUDENT-OCCUPATIONAL THERAPIST - 01/31/2020 14:28 EDT Toilet Transfer LTG Grid Goal #1 Activity : Toilet Transfer, Ambulatory Assist : Independent, modified Date to Meet : 02/14/2020 EDT Goal Status : Initial goal Malinda Phillips STUDENT-OCCUPATIONAL THERAPIST - 01/31/2020 14:28 EDT Treatment Note Subjective Comment : Pt pleasant and agreeable to participate in eval. Patient's Response to Treatment : Pt tolerated eval well. Additional Objective Information : Pt supine in bed upon arrival. Supine to sit EOb req supervision. Pt donned underwear with max A. Sit to stand using Rwx req min A. Min A to ambulate from EOB to chair with Rwx. Pt left up in chair with all needs met and CL in reach. Assessment : Pt will benfit from skilled OT services during hospital admission. Plan for Treatment : See goals. Malinda Phillips STUDENT-OCCUPATIONAL THERAPIST - 01/31/2020 14:28 EDT Pain Assessment Pain Scaled Used : 0-10 Pain scale Pain Score Pre-Intervention : 4 Location : Knee, right Malinda Phillips STUDENT-OCCUPATIONAL THERAPIST - 01/31/2020 14:28 EDT Image 1 - Images currently included in the form version of this document have not been included in the text rendition version of the form. [place] OT Charges OT Eval Moderate Complexity : 1 Malinda Phillips STUDENT-OCCUPATIONAL THERAPIST - 01/31/2020 14:28 EDT Electronically signed by Benjamin Sweet Conversion Head Insulation Board Saw Operator Cerner at 11/06/2022 12:55 PM CDT documented in this encounter Plan of Treatment Not on file documented as of this encounter Visit Diagnoses Not on filedocumented in this encounter Care Teams Payroll Analyst Relationship Specialty Start Date End Date Matheus Boggs MD [address] [place] [facility] [address] [place] [phone] PCP - General Family Medicine 09/05/22 documented as of this encounter
--- OUTSIDE RECORDS SUMMARY | 2025-03-02 10:56 | XMS_ITS | Encounter Summary ---
Author Organization [employer] ([place], [place], [place], [place]) Address [address] [place] [address] Care Team Providers Care Ppa Teacher Name Role Phone Matheus Boggs MD Primary Care Provider + [phone] Encounter Details Date Type Department Care Team (Late st Contact Info) Description 01/31/2020 Transcribed Document [facility] [place] [address] ProviderCristopher MD [address] [place] [address] Social History Tobacco Use Types Packs/Day [...] Conversion Note - Cristopher ProviderMD - 01/31/2020 6:32 AM CDT Admission History, Adult Entered On: 01/31/2020 13:59 EDT Performed On: 01/31/2020 6:32 EDT by Jaida Larios Rn Advance Directive Patient has Advance Directive *Q : Yes, Advance Directive not with the patient Advance Directive Type : Medical durable power of staff attorney (proxy) Copy Advance Directive Verified/on Chart : No Jaida Larios Rn - 01/31/2020 13:54 EDT Anesthesia/Transfusion History Family History of Anesthesia Reaction : No prior transfusion(s) Blood Transfusion Acceptable to Patient : Yes Transfusion History : Prior anesthesia without reaction Family History of Anesthesia Reaction : None Jaida Larios Rn - 01/31/2020 13:54 EDT Functional Assessment Living Situation : Home Current Home Treatments : None Jaida Larios Rn - 01/31/2020 13:54 EDT General Info Preferred Name : Melissa Arrived From : Home Mode of Arrival on Unit : Ambulatory Legal Guardian : Daughter, Unaccompanied Support Person/Patient Professor Of Management : Yes Support Person/Pt Rep Name : Lili White - dtr Fay Reese - dtr Support Person/Pt Rep Contact Information : [phone] Want Family/Rep/Phys Notified of Admit : No Emergency Contact #1 : Lili White Emergency Contact #1 Emergency Contact #1 Relationship : dtr Emergency Contact #2 : Fay Reese Emergency Contact #2 Emergency Contact #2 Relationship : dtr Information Obtained From : Patient Primary Language : Nauruan Preferred Communication Mode : Verbal Communication Barrier : None Staff Anesthesiologist Needed : No Objects to Sharing Info w Family : No Jaida Larios Rn - 01/31/2020 13:54 EDT Fall Risk Scales ABCs Fall Injury Risk Identification : Bones, Surgery ABC Fall Injury Risk : Moderate to high injury risk Injury Moderate to High Risk Interventions : Fall contract/letter per facility policy, High Risk for Fall Injury sign in place per policy, Patient room close to nurses station, Supervise toileting as indicated, Visual cues in place NICOLE Hx Falls Immediate/Within 3 Months : No Nicole Secondary Diagnosis : Yes NICOLE Use of Ambulatory Aid : Crutches/Cane/Walker NICOLE IV Therapy or IV Access : Yes Nicole Gait/Transferring : Impaired Nicole Mental Status : Oriented to own ability Nicole Fall Risk Score : 70 NICOLE Fall Scale Risk Level : 46 or > High Risk [place] Fall Interventions : Adequate lighting, Assistive devices within reach, Bed in low position, Call device within reach, Fall prevention handout/education per facility policy, Frequent orientation to call device, Frequent orientation to surroundings, Hourly comfort/safety rounds, Non-slip footwear, Personal items within reach, Reinforced to call for assistance before getting out of bed, Room free of clutter/spills, Upper side-rails up, Wheels locked, Wires/Cords secured Jaida Larios Rn - 01/31/2020 13:54 EDT Fall Risk Education Grid Alarms : Verbalizes understanding Assistive Equipment Use : Verbalizes understanding Bed Height/Stabilization : Verbalizes understanding Call light use : Verbalizes understanding Environmental Management : Verbalizes understanding Fall Prevention Protocol : Verbalizes understanding Night Light Use : Verbalizes understanding Nonskid Footwear Use : Verbalizes understanding Prevention Responsibility Family : Verbalizes understanding Prevention Responsibility Patient : Verbalizes understanding Risk Alert Methods : Verbalizes understanding Risk Factors : Verbalizes understanding Safety Aids : Verbalizes understanding Siderails use/risks : Verbalizes understanding Special Assistive Devices : Verbalizes understanding Staff Responsiveness : Verbalizes understanding Symptom Identification & Action Plan *Q : Verbalizes understanding Symptom Reporting : Verbalizes understanding Toileting Schedule : Verbalizes understanding Transfer/Mobility Techniques : Verbalizes understanding Urinal/Bedpan Availability : Verbalizes understanding Wait for Assistance : Verbalizes understanding Jaida Larios Rn - 01/31/2020 13:54 EDT Barriers to Learning : None evident Fall Risk Scale Calc Temp : 1 Jaida Larios Rn - 01/31/2020 13:54 EDT Health Histories Smoking Status : Never (less than 100 in lifetime; none in last 30 days) Smokeless Tobacco Status : Never Jaida Larios Rn - 01/31/2020 13:54 EDT Social History (As Of: 01/31/2020 13:59:10 EDT) Tobacco: Never (less than 100 in lifetime) Smoking Status. Never Smokeless Tobacco Status. (Last Updated: 01/13/2020 10:07:19 EDT by FAROOQ SAVAGE, RN) Alcohol: Alcohol Use History No. (Last Updated: 01/13/2020 10:07:24 EDT by FAROOQ SAVAGE, RN) Substance Abuse: Drug Use Hx: No. Use in Last 12 Months: No. (Last Updated: 01/13/2020 10:07:28 EDT by FAROOQ SAVAGE, RN) Home/Environment: Lives with Spouse. Living situation: Home/Independent. Home equipment: Respiratory treatments, Walker/Cane. (Last Updated: 01/13/2020 10:08:36 EDT by FAROOQ SAVAGE, RN) Employment/School: Unemployed (Last Updated: 01/13/2020 10:08:11 EDT by FAROOQ SAVAGE RN) Height and Weight, Clinical Dosing Height Source : Measured Height Entry Format : [place] Height, Feet : 5 ft(Converted to: 152 cm, 60 Inch) Height, Inches : 1.5 Inch(Converted to: 0 ft 2 Inch, 3.81 cm) Clinical Height : 156.21 cm Weight Source : Standing scale Weight Entry Format : [place] Clinical Dosing Weight : 78.32 kg Weight, Pounds : 172 lb Weight, Ounces : 5 oz Body Surface Area (BSA) : 1.79 m2 Body Mass Index : 32.1 kg/m2 (HI) [place] Body Weight : 49 kg Jaida Larios Rn - 01/31/2020 13:54 EDT Infectious Disease History Has the patient ever been tested for COVID-19? : No, Screening today for COVID-19 Does patient have symptoms of COVID-19? 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 Jaida Larios Rn - 01/31/2020 13:54 EDT Nutrition History Eating Poorly Due to Decreased Appetite : No Unplanned Weight Loss in Past 3-6 Months : No Malnutrition Screening Tool Total(mal) : 0 Malnutrition Screening Tool Risk Level : Patient not at risk Jaida Larios Rn - 01/31/2020 13:54 EDT [place] Suicide Severity Rating Scale (C-SSRS) CSSRS Past Month Wish to be : No CSSRS Past Month Suicidal Thoughts : No CSSRS Lifetime Suicide Behavior : No Suicide Severity Rating Score : 0 Suicide Severity Rating : No Additional Care Required at this time Jaida Larios Rn - 01/31/2020 13:54 EDT Psychosocial History Currently in Unsafe Situation : No Jaida Larios Rn - 01/31/2020 13:54 EDT Sleep Apnea Risk Assmt Hx of Obstructive Sleep Apnea Diagnosis : No Snore Loudly : Yes Tired, Fatigued, or Sleepy During Day : No Observed Stopping Breathing During Sleep : No Have/Are Being Treated for Hypertension : Yes BMI Greater Than 35 kg/m2 : No Age over 50 Years Old : Yes Neck Circumference Greater Than 40 cm : No Gender Male : No STOP-BANG Sleep Apnea Risk Level Score : 3 Jaida Larios Rn - 01/31/2020 13:54 EDT Valuables and Belongings Valuables and Belongings : Clothing Clothing : Common streetwear Clothing Disposition : With patient Jaida Larios Rn - 01/31/2020 13:54 EDT documented in this encounter Plan of Treatment Not on file documented as of this encounter Visit Diagnoses Not on filedocumented in this encounter Care Teams Ppa Teacher Relationship Specialty Start Date End Date Matheus Boggs MD [address] [place] [facility] [address] [place] [id number] PCP - General Family Medicine 09/05/22 documented as of this encounter
--- OUTSIDE RECORDS SUMMARY | 2025-03-02 10:56 | XMS_ITS | Encounter Summary ---
Author Organization [email or web address] ([place], [place], [place], [place]) Address [address] [place] [address] Care Team Providers Care Seismometer Operator Name Role Phone Matheus Boggs MD Primary Care Provider + [phone] Encounter Details Date Type Department Care Team (Late st Contact Info) Description 01/28/2020 Transcribed Document [facility] [place] Family Medicine [address] [place] [address] ProviderCristopher MD [address] [place] [address] Social History Tobacco Use Types [...] Cerner Conversion Note - Cristopher ProviderMD - 01/28/2020 1:53 PM CDT UM Authorization Entered On: 01/28/2020 13:54 EDT Performed On: 01/28/2020 13:53 EDT by JOSH MALIK, Process Developer Primary Insurance Authorization Authorization and Policy Numbers : Insurance 1 Health Plan: MEDICARE Policy Number: [id number] Authorization Number: NPR Insurance 2 Health Plan: AARP N Policy Number: [id number] Authorization Number: NPR Insurance Primary Name : [facility] Authorization Number-Primary : NPR for Medicare Authorized Service Begin Date-Primary : 01/31/2020 EDT Authorization Comments-Primary : pt scheduled for OUT PT total knee replacement (Right) on 01-31-2020 Medicare: NPR Historical Authorization Comments-Primary : No Authorization Comments Found JOSH MALIK, Process Developer - 01/28/2020 13:53 EDT Electronically signed by [facility], [facility] Conversion Mammalogy Teacher Cerner at 11/06/2022 12:59 PM CDT documented in this encounter Plan of Treatment Not on file documented as of this encounter Visit Diagnoses Not on filedocumented in this encounter Care Teams Seismometer Operator Relationship Specialty Start Date End Date Matheus Boggs MD [address] [facility] [address] [place] [phone] PCP - General Family Medicine 09/05/22 documented as of this encounter
--- OUTSIDE RECORDS SUMMARY | 2025-03-02 10:56 | XMS_ITS | Encounter Summary ---
Author Organization [employer] ([place], [place], [place], [place]) Address [address] [place] [address] Care Team Providers Care Mushroom Laborer Name Role Phone Matheus Boggs MD Primary Care Provider + [phone] Encounter Details Date Type Department Care Team (Late st Contact Info) Description 02/01/2020 Transcribed Document [facility] Radiology [address] [place] [phone] Chris Keyes MD [address] [place] [address] Social History Tobacco Use Types Packs/Day Years [...] Conversion Note - Chris Keyes MD - 02/01/2020 9:53 AM EDT Patient: MARY WALKER V Age: 74 years Sex: Female : 1945 Associated Diagnoses: None Author: LI DIXON PA-FAM 02/01/2020 cc: medical management s/p right total knee arthroplasty. S: Pt is doing ok. No f'/c/s. No n/v/d. (-) gas, (-) BM. No CP, SOA, palpitations. No cough or sputum. Urinating well. +post op pain. Using incentive spirometer. HPI: Patient is a 74 yo female admitted to [facility] per Dr. Gonzalez for a right total knee arthroplasty. Preoperatively patient was found to have advanced osteoarthritis of the right knee and elected surgical intervention after failing conservative treatment. Patient is followed perioperatively while hospitalized for medical management. Initial visit on floor - Denies prior stroke or seizure. Denies OH, CHF or cardiac arrhythmia. Denies DM. Denies COPD, asthma or ERIC. Denies DVT or PE. Denies h/o cancer. +urinary incontinence. Denies any recent illnesses that required abx. Denies prior skin infections. +asthma, states that is is under control with her allergy shots. Rarely has to use inhalers. +HTN, hypothyroidism. State that she just had an endoscopy that showed HH. She has had issues with esophageal spasms. states she has issues with sinus drainage down her throat. has issues with diarrhea. Past Med Hx: Active Problems (23) Allergic rhinitis Angina Arthritis osteo Asthma At risk for sleep apnea Bursitis Cardiac syndrome X Difficulty swallowing H/O bilateral Cataract Hard of hearing has aides Hemorrhoids Hiatal hernia High blood pressure Hyperlipidemia hypo Thyroid disease Incontinence/Frequency Irritable bowel syndrome Renal calculus Seasonal allergies Shortness of breath Sinusitis Thyroid mass benign Urinary tract infection Active Procedures (9) abdominal hernia repair bilateral knee arthroscopy X 2 each bladder tac X 2 double abdominal hernia repair lap cholecystectomy sinus surgery thyroid lobectomy right total hysterectomy Family Hx: mother stroke; 2 sisters - dementia, one recently ; brother - heart issues Social & Psychosocial Habits Alcohol 01/13/2020 Alcohol Use History, Social Habits No Employment/School 01/13/2020 Status: Unemployed Home/Environment 01/13/2020 Lives with: Spouse Living situation: Home/Independent Home equipment: Respiratory treatments, Walker/Cane Substance Abuse 01/13/2020 Recreational Drug Use History No Recreational Drug Use Last 12 Months No Tobacco 01/13/2020 Smoking Status Never (less than 100 in l Smokeless Tobacco Status Never Allergies (7) Active Reaction aspirin Rash codeine Rash NSAIDs Rash zolpidem Hyperactive Bactrim Unknown Percodan Rash Terramycin Rash Home Medications (17) Active acebutolol 200 mg, Oral, BID allerlgy shots 1, SubCutaneous, [id number] Arnuity Ellipta 100 mcg, PRN, Inhalation, [id number] aspirin 81 mg oral tablet 81 mg = 1 Tab, Oral, BID Colace 100 mg oral capsule 100 mg = 1 Cap, PRN, Oral, BID ferrous gluconate 324 mg (37.5 mg elemental iron) oral tablet 324 mg = 1 Tab, Oral, Daily fexofenadine 180 mg, Oral, Daily fluticasone 50 mcg/inh nasal spray 2 [place], PRN, Nasal, BID hydrochlorothiazide-irbesartan 12.5 mg-150 mg oral tablet 1 Tab, Oral, Daily hydrOXYzine hydrochloride 25 mg, PRN, Oral, TID Levoxyl 125 mcg, Oral, Daily liothyronine 5 mcg, Oral, Daily meloxicam 7.5 mg oral tablet 7.5 mg, Oral, Daily Neurontin 300 mg oral capsule 300 mg = 1 Cap, PRN, Oral, At Bedtime Percocet 5/325 oral tablet 1 Tab, PRN, Oral, Q4H Singulair 10 mg, Oral, At Bedtime Ventolin HFA 2 Puff, PRN, Inhalation, Q4H Exam: Vitals Signs (last 24 hrs) Last Charted Minimum Maximum Temp 98.3 (JAN 31 05:48) 97.4 (JAN 31 02:10) 98.4 (JAN 30 12:01) Mon HR 59 (JAN 31 05:48) 54 (JAN 30 13:00) 72 (JAN 30 18:45) Resp Rate 18 (JAN 31 05:48) L 12 (JAN 30 12:05) 18 (JAN 31 02:10) SBP 106 (JAN 31 05:48) 106 (JAN 31 05:48) H 188 (JAN 30 12:10) DBP 86 (JAN 31 05:48) L 45 (JAN 30 21:45) 86 (JAN 31 05:48) MAP 90 (JAN 31 05:48) 61 (JAN 30 21:45) 115 (JAN 30 12:10) SpO2 100 (JAN 31 05:48) L 92 (JAN 30 12:30) 100 (JAN 30 12:01) GEN: Alert, awake, NAD CV: S1S2, no murmur. No LE edema Resp: CTAB, NL Abd: Soft, NT, ND +BS Skin: no rashes on inspection and palpation. Ext: No LE edema. No joint edema, erythema. Neuro: A&O x 3 Data: Blood Gases (Current Encounter/Past 24 Hours) No Blood Gas Results Found (Past 24 Hours) Electrolytes(BMP) Results (Current Encounter/Past 24 Hours) Sodium Level 137 mmol/L 02/01/2020 04:53 Potassium Level 3.9 mmol/L 02/01/2020 04:53 Chloride Level 109 mmol/L 02/01/2020 04:53 Carbon Dioxide Level 21 mmol/L 02/01/2020 04:53 Anion Gap 11 02/01/2020 04:53 Blood Urea Nitrogen 12 mg/dL 02/01/2020 04:53 Glucose Level 148 mg/dL TN 02/01/2020 04:53 Calcium Level 8.4 mg/dL 02/01/2020 04:53 Creatinine Level 0.70 mg/dL 02/01/2020 04:53 Cardiac Markers (Current Encounter/Past 24 Hours) No Cardiac Marker Results Found (Past 24 Hours) CBC Results (Current Encounter/Past 24 Hours) WBC 11.5 K/uL TN 02/01/2020 04:28 Hct 37.7 % 02/01/2020 04:28 Hgb 12.4 g/dL 02/01/2020 04:28 Platelet Count 189 K/uL 02/01/2020 04:28 CMP Results (Current Encounter/Past 24 Hours) eGFR >60 mL/min/1.73m2 02/01/2020 04:53 eGFR NonAfrican >60 mL/min/1.73m2 02/01/2020 04:53 Creatinine Level 0.70 mg/dL 02/01/2020 04:53 Bun/Creatinine 17.1 02/01/2020 04:53 Sodium Level 137 mmol/L 02/01/2020 04:53 Potassium Level 3.9 mmol/L 02/01/2020 04:53 Chloride Level 109 mmol/L 02/01/2020 04:53 Carbon Dioxide Level 21 mmol/L 02/01/2020 04:53 Anion Gap 11 02/01/2020 04:53 Blood Urea Nitrogen 12 mg/dL 02/01/2020 04:53 Glucose Level 148 mg/dL [place] 02/01/2020 04:53 Calcium Level 8.4 mg/dL 02/01/2020 04:53 Coagulation Results (Current Encounter/Past 24 Hours) No Coagulation Results Found (Past 24 Hours) Creatinine Clearance (Current Encounter/Past 24 Hours) Creatinine Level 0.70 mg/dL 02/01/2020 04:53 Bun/Creatinine 17.1 02/01/2020 04:53 Preop: reviewed cbc, bmp, UA, A1c 5.8 EKG Ventricular Rate : 55 BPM Atrial Rate : 55 BPM P-R Interval : 152 ms QRS Duration : 84 ms Q-T Interval : 440 ms QTC Calculation(Bezet) : 420 ms P Phelan : 16 degrees R Phelan : -6 degrees T Phelan : 25 degrees Sinus bradycardia Cannot rule out Anterior infarct (cited on or before 13-JAN-2020) Abnormal ECG When compared with ECG of 13-JAN-2020 10:53, No significant change was found Confirmed by JAKUB ORTIZ M.D. ([id number]), proposal editor LILIAN BENÍTEZ ([id number]) on 01/13/2020 3:58:46 PM Impression: advanced OA right knee; -s/p right total knee arthroplasty per Dr. Gonzalez HTN preop bradycardia, likely due to BB Plan: hold irbesartan and hctz at home if sbp is <110. Anticipate DC home later today with home health per ortho OK to discharge from standpoint pain meds per surgery DVT prophylaxis per surgery bowel regimen at home IS at home Assessment and treatment plan made in conjunction with Blessing Keyes MD Scribed by Sneha Tirado documented in this encounter Plan of Treatment Not on file documented as of this encounter Visit Diagnoses Not on filedocumented in this encounter Care Teams Mushroom Laborer Relationship Specialty Start Date End Date Matheus Boggs MD [address] [place] [facility] [address] [place] [phone] PCP - General Family Medicine 09/05/22 documented as of this encounter
--- OUTSIDE RECORDS SUMMARY | 2025-03-02 10:56 | XMS_ITS | Clinical Summary ---
Author Organization [facility] Address [address] [place] [address] Care Team Providers Care Patient Transporter Name Role Phone Unavailable Primary Care Provider Unavailabl e Social History Tobacco Use Types Packs/Day Years Used Date Smoking Tobacco: Never Assessed Comments Unknown Sex and Gender Information Value Date Recorded Sex Assigned at Not on file Legal Sex Female 8:32 PM EDT Gender Identity Not on file Sexual Orientation Not on file Plan of Treatment Health Maintenance Due Date Last Done Comments Hepatitis C Screening 1945 DTap,Tdap,and Td (1 - Tdap) 1956 Pneumococcal 50+ (1 of 1 - PCV) 1995 Shingrix (#1) 1995 DEXA Scan 2010 RSV Vaccine (60+ or ) (1 - 1-dose 75+ series) 2020 Influenza Vaccine (#1) 2025 HPV Aged Out No longer eligi ble based on patient's age to complete this topic Meningococcal conjugate darryl nt 4 (MCV4) Aged Out No longer eligible b ased on patient's age to complete this topic RSV Immunization (<20 months) Aged Out No longer eligible based on patient's age to complete this topic
--- OUTSIDE RECORDS SUMMARY | 2025-03-02 10:56 | XMS_ITS | Encounter Summary ---
Author Organization [employer] ([place], [place], [place], [place]) Address [address] [place] [address] Care Team Providers Care Logging Contractor Name Role Phone Matheus Boggs MD Primary Care Provider + [phone] Encounter Details Date Type Department Care Team (Late st Contact Info) Description 01/31/2020 Transcribed Document [facility] Family [place] [address] ProviderCristopher MD [address] [place] [address] Social History Tobacco Use Types [...] Conversion Note - Cristopher ProviderMD - 01/31/2020 8:37 AM CDT Procedural Documentation Entered On: 01/31/2020 8:38 EDT Performed On: 01/31/2020 8:37 EDT by OM Macdonald RN Procedure Documentation Procedure to be Performed : right sciatic/adductor block Time Out Pause Time : 01/31/2020 8:30 EDT All Activity Suspended : Yes Team Verbally Confirms Information : Correct patient identity, Correct side and site are marked, Consent form is present and accurate, Agreement on the procedure to be done, Correct patient position, Confirm the skin prep has dried, Performed in location of procedure after prepped/draped Procedure Performed : right sciatic/adductor block Proper Use of Sterile Apparel per Policy : Yes Procedure Case Attendee : BOBBI GERARDO MD-ANS Procedure Case Attendee Role : Anesthesiologist Procedure Case Attendee Role 2 : sr. pricing analyst Case Attendee 2 : OM Macdonald RN Procedure Case Attendee Role 3 : sr. pricing analyst Case Attendee 3 : Nanette Weston RN Wilson, DUSTI W, RN - 01/31/2020 8:37 EDT Postprocedure Documentation Current Time : 8:37 EST MO Macdonald RN - 01/31/2020 8:37 EDT Augusto Level I Post Anesthesia Assessment Augusto I Activity Status : Moves 4 extremities voluntarily or on command Augusto l Respiratory Component : Able to deep breathe and cough freely Augusto I Circulation Component : BP 20% of preanesthetic level Augusto I Consciousness : Arouses on calling Augusto l Oxygen Saturation : Needs oxygen to maintain > 92% Augusto l Score : 8 MO Macdonald RN - 01/31/2020 8:37 EDT Vital Measurements Systolic Blood Pressure : 149 mmHg (HI) Diastolic Blood Pressure : 64 mmHg MO Macdonald RN - 01/31/2020 8:41 EDT Pulse Method : Pulse Oximetry Peripheral Pulse Rate : 71 bpm Pulse Rhythm : Regular Respiratory Rate : 16 Breaths/Min Blood Pressure Location : Arm, left upper Blood Pressure Source : Non-Invasive BP Device Blood Pressure Position : Supine Oxygen Saturation : 99 % Oxygen Therapy Mode : Nasal cannula Oxygen Flow Rate : 2 Liter/Min MO Macdonald RN - 01/31/2020 8:37 EDT Electronically signed by [facility] Conversion Mobility Engineer Cerner at 11/06/2022 1:06 PM CDT documented in this encounter Plan of Treatment Not on file documented as of this encounter Visit Diagnoses Not on filedocumented in this encounter Care Teams Logging Contractor Relationship Specialty Start Date End Date Matheus Boggs MD [address] [place] [facility] [address] [place] [phone] PCP - General Family Medicine 09/05/22 documented as of this encounter
--- OUTSIDE RECORDS SUMMARY | 2025-03-02 10:56 | XMS_ITS | Encounter Summary ---
Author Organization [employer] ([place], [place], [place], [place]) Address [address] [place] [address] Care Team Providers Care Inorganic Chemist Name Role Phone Matheus Boggs MD Primary Care Provider + [phone] Encounter Details Date Type Department Care Team (Late st Contact Info) Description 01/31/2020 Transcribed Document [facility] [place] [address] ProviderCristopher MD [address], [place] [id number] Social History Tobacco Use Types Packs/Day Years [...] Conversion Note - Cristopher ProviderMD - 01/31/2020 2:00 AM CDT Spiritual Care Assessment Entered On: 01/31/2020 9:13 EDT Performed On: 01/31/2020 7:38 EDT by PHANI BARLOW General Information Initial Visit : Yes Referred by : Patient Referral Reason Comment : Pre-surgery visit Ministry Provided to : Patient PHANI BARLOW - 01/31/2020 9:13 EDT Spiritual Assessment Spiritual Assessment Comment/Summary Points : Provided pre-surgery visit and prayer. Spirital Assessment Comment/Summary Report : SPIRITUAL ASSESSMENT COMMENT/SUMMARY No qualifying data available. PHANI BARLOW P - 01/31/2020 9:13 EDT Interventions Emotional Support : Empathic/Engaged listening Spiritual and Druze : Prayer shared, Spiritual/Druze support provided PHANI BARLOW P - 01/31/2020 9:13 EDT Electronically signed by [facility] Conversion Sas Developer Cerner at 11/06/2022 12:54 PM CDT documented in this encounter Plan of Treatment Not on file documented as of this encounter Visit Diagnoses Not on filedocumented in this encounter Care Teams Inorganic Chemist Relationship Specialty Start Date End Date Matheus Boggs MD [address] [place] [facility] [address] [place] [phone] PCP - General Family Medicine 09/05/22 documented as of this encounter
--- OUTSIDE RECORDS SUMMARY | 2025-03-02 10:56 | XMS_ITS | Encounter Summary ---
Author Organization [employer] ([place], [place], [place], [place]) Address [address] [place] [address] Care Team Providers Care Operations Officer Afloat Name Role Phone Matheus Boggs MD Primary Care Provider + [phone] Encounter Details Date Type Department Care Team (Late st Contact Info) Description 01/31/2020 Transcribed Document [facility] Radiology [address] [place] [phone] Lizz Gonzalez MD [facility] [place] [address] Social History Tobacco Use Types Packs/Day Years [...] Note - Lizz Gonzalez MD - 01/31/2020 9:11 AM EDT Patient: MARY WALKER V Age: 74 years Sex: Female : 1945 Associated Diagnoses: None Author: HOLLEYRFAY, GRINDER LAP Chief Complaint R knee pain Review of Systems ROS reviewed as documented in chart no change since last seen by surgeon Health Status Allergies: Allergic Reactions (Selected) Moderate Aspirin- Rash. Codeine- Rash and tongue swelling. NSAIDs- Rash. Zolpidem- Hyperactive. Severity Not Documented Bactrim- Unknown. Percodan- Rash. Terramycin- Rash and swelling of throat., Allergies (7) Active Reaction aspirin Rash codeine Rash NSAIDs Rash zolpidem Hyperactive Bactrim Unknown Percodan Rash Terramycin Rash Current medications: (Selected) Inpatient Medications Ordered Ancef: 2 Gram, 50 mL, 200 mL/Hr, IV Piggyback, PREOP Lactated Ringers Injection intravenous solution 1,000 mL: 20 mL/Hr, IntraVENous Lyrica: 75 mg, Oral, 1-Time Toradol: 30 mg, IV Push, 1-Time Tylenol: 1,000 mg, Oral, On-Arrival Zofran: 4 mg, IV Push, 1-Time dexamethasone: 10 mg, IV Push, 1-Time famotidine: 20 mg, Oral, 1-Time lidocaine 1% preservative-free injectable solution: 0.5 mL, IntraDermal, 1-Time midazolam: 1 mg, IV Push, Q10Min, PRN: Anxiety ropivacaine 0.5% injectable solution 24.6 mL + EPINEPHrine 0.25 mg + cloNIDine 40 mcg + Sodium Chlo...: 24.6 mL, 50 mL/Hr, Miscellaneous, 1-Time tranexamic acid 1,000 mg + syringe 1 Each + Sodium Chloride 0.9% intravenous solution 15 mL: 1,000 mg, 10 mL, 150 mL/Hr, IV Push, 1-Time tranexamic acid 2,000 mg + sodium chloride 0.9% injectable solution 5 mL + syringe 1 Each: 2,000 mg, 20 mL, 75 mL/Hr, IV Push, 1-Time Documented Medications Documented Arnuity Ellipta: 100 mcg, Inhalation, [id number], PRN: Wheezing, 0 Refill(s) Levoxyl: 125 mcg, Oral, Daily, 0 Refill(s) Singulair: 10 mg, Oral, At Bedtime, 0 Refill(s) Tylenol: 650 mg, Oral, At Bedtime, 0 Refill(s) Ventolin HFA: 2 Puff, Inhalation, Q4H, PRN: as needed for wheezing, 0 Refill(s) acebutolol: 200 mg, Oral, BID, 0 Refill(s) allerlgy shots: 1, SubCutaneous, [id number], 0 Refill(s) fexofenadine: 180 mg, Oral, Daily, 0 Refill(s) fluticasone 50 mcg/inh nasal spray: 2 [place], Nasal, BID, PRN: Allergies, 16 Gram, 0 Refill(s) hydrOXYzine hydrochloride: 25 mg, Oral, TID, PRN: as needed for anxiety, 0 Refill(s) hydrochlorothiazide-irbesartan 12.5 mg-150 mg oral tablet: 1 Tab, Oral, Daily, 30 Tab, 0 Refill(s) liothyronine: 5 mcg, Oral, Daily, 0 Refill(s) meloxicam: 7.5 mg, Oral, Daily, 0 Refill(s), Home Medications (13) Active acebutolol 200 mg, Oral, BID allerlgy shots 1, SubCutaneous, [id number] Arnuity Ellipta 100 mcg, PRN, Inhalation, [id number] fexofenadine 180 mg, Oral, Daily fluticasone 50 mcg/inh nasal spray 2 [place], PRN, Nasal, BID hydrochlorothiazide-irbesartan 12.5 mg-150 mg oral tablet 1 Tab, Oral, Daily hydrOXYzine hydrochloride 25 mg, PRN, Oral, TID Levoxyl 125 mcg, Oral, Daily liothyronine 5 mcg, Oral, Daily meloxicam 7.5 mg, Oral, Daily Singulair 10 mg, Oral, At Bedtime Tylenol 650 mg, Oral, At Bedtime Ventolin HFA 2 Puff, PRN, Inhalation, Q4H , Medications (13) Active Scheduled: (11) acetaminophen 500 mg tab 1,000 mg 2 Tab, Oral, On-Arrival ceFAZolin/D5w 2 Gram 50 mL, IV Piggyback, PREOP dexamethasone 10 mg/1 mL inj 10 mg 1 mL, IV Push, 1-Time famotidine 20 mg tab 20 mg 1 Tab, Oral, 1-Time ketorolac 30 mg/1 mL inj 30 mg 1 mL, IV Push, 1-Time lidocaine 1% *PF* inj 2 mL 0.5 mL, IntraDermal, 1-Time ondansetron 4 mg/2 mL inj 4 mg 2 mL, IV Push, 1-Time pregabalin 75 mg cap 75 mg 1 Cap, Oral, 1-Time ropivacaine 0.5% 24.6 mL + EPINEPHrine 0.25 mg + cloNIDine 40 mcg + NaCl 0.9% 24.75 mL 24.6 mL, Miscellaneous, 1-Time tranexamic acid 1,000 mg + syringe 1 Each + NaCl 0.9% 15 mL 1,000 mg 10 mL, IV Push, 1-Time tranexamic acid 2,000 mg + NaCl 0.9% *PF* 5 mL + syringe 1 Each 2,000 mg 20 mL, IV Push, 1-Time Continuous: (1) lactated ringers 1,000 mL 1,000 mL, IntraVENous, 20 mL/Hr PRN: (1) midazolam 1 mg/1 mL inj 2 mL 1 mg 1 mL, IV Push, Q10Min Problem list: All Problems Urinary tract infection / SNOMED CT 034001847 / Confirmed hypo Thyroid disease / SNOMED CT 471041761 / Confirmed Sinusitis / SNOMED CT 21557686 / Confirmed Seasonal allergies / SNOMED CT 3512901450 / Confirmed Renal calculus / SNOMED CT 814777655 / Confirmed Thyroid mass benign / SNOMED CT 4089946027 / Confirmed Irritable bowel syndrome / SNOMED CT 24914948 / Confirmed Incontinence/Frequency / SNOMED CT 99977933 / Confirmed Hyperlipidemia / SNOMED CT 92540936 / Confirmed High blood pressure / SNOMED CT 46339781 / Confirmed Hiatal hernia / SNOMED CT 188733538 / Confirmed Hemorrhoids / SNOMED CT 905048087 / Confirmed Hard of hearing has aides / SNOMED CT 692936740 / Confirmed Shortness of breath / SNOMED CT 793976469 / Confirmed Difficulty swallowing / SNOMED CT 89419883 / Confirmed H/O bilateral Cataract / SNOMED CT 158228252 / Confirmed Cardiac syndrome X / SNOMED CT 895432081 / Confirmed Bursitis / SNOMED CT 325450123 / Confirmed At risk for sleep apnea / IMO 74919857 / Confirmed Asthma / SNOMED CT 583890917 / Confirmed Arthritis osteo / SNOMED CT 3973306 / Confirmed Angina / SNOMED CT 930657187 / Confirmed Allergic rhinitis / SNOMED CT 199459557 / Confirmed, Active Problems (23) Allergic rhinitis Angina Arthritis osteo Asthma At risk for sleep apnea Bursitis Cardiac syndrome X Difficulty swallowing H/O bilateral Cataract Hard of hearing has aides Hemorrhoids Hiatal hernia High blood pressure Hyperlipidemia hypo Thyroid disease Incontinence/Frequency Irritable bowel syndrome Renal calculus Seasonal allergies Shortness of breath Sinusitis Thyroid mass benign Urinary tract infection Histories Past Medical History: No active or resolved past medical history items have been selected or recorded. Family History: No family history items have been selected or recorded. Procedure history: double abdominal hernia repair in 2014 at 70 Years. sinus surgery in 2011 at 67 Years. bilateral knee arthroscopy X 2 each in 2005 at 61 Years. thyroid lobectomy right in 1997 at 53 Years. lap cholecystectomy in 1997 at 53 Years. bladder tac in 1993 at 49 Years. total hysterectomy in 1982 at 38 Years. X 2. abdominal hernia repair. Social History Social & Psychosocial Habits Alcohol 01/13/2020 Alcohol Use History, Social Habits No Employment/School 01/13/2020 Status: Unemployed Home/Environment 01/13/2020 Lives with: Spouse Living situation: Home/Independent Home equipment: Respiratory treatments, Walker/Cane Substance Abuse 01/13/2020 Recreational Drug Use History No Recreational Drug Use Last 12 Months No Tobacco 01/13/2020 Smoking Status Never (less than 100 in l Smokeless Tobacco Status Never . Physical Examination VS/Measurements Vital Signs/Vital Measures 01/31/2020 7:58 EDT Systolic Blood Pressure 150 mmHg HI Diastolic Blood Pressure 57 mmHg LOW Mean Arterial Pressure (MAP)-BMDI 80 Temperature Source Oral Temperature Mode Fahrenheit Temperature, Fahrenheit 97.8 Deg F Clinical Temperature, C 36.6 Deg C Heart Rate Monitored 63 bpm Respiratory Rate 17 Breaths/Min Oxygen Saturation 95 % Oxygen Therapy Mode Room air , Vitals Signs (last 24 hrs) Last Charted Minimum Maximum Temp 97.8 (JAN 30 07:58) 97.8 (JAN 30 07:58) 97.8 (JAN 30 07:58) Mon HR 63 (JAN 30 07:58) 63 (JAN 30 07:58) 63 (JAN 30 07:58) Resp Rate 17 (JAN 30 07:58) 17 (JAN 30 07:58) 17 (JAN 30 07:58) SBP H 150 (JAN 30 07:58) H 150 (JAN 30 07:58) H 150 (JAN 30 07:58) DBP L 57 (NIKITA 13 07:58) L 57 (JAN 30 07:58) L 57 (JAN 30 07:58) MAP 80 (JAN 30 07:58) 80 (JAN 30 07:58) 80 (JAN 30 07:58) SpO2 95 (JAN 30 07:58) 95 (JAN 30 07:58) 95 (JAN 30 07:58) General: Alert and oriented, No acute distress, obese. Eye: Pupils are equal, round and reactive to light, Extraocular movements are intact, glasses. HENT: Normocephalic, [place]. Neck: Supple, Non-tender. Respiratory: Lungs are clear to auscultation, Respirations are non-labored. Cardiovascular: Normal rate, Regular rhythm, No murmur, No gallop, No edema. Gastrointestinal: Soft, Non-tender. Genitourinary: No costovertebral angle tenderness. Lymphatics: No lymphadenopathy neck, axilla, groin. Musculoskeletal: painful ROM R knee, RLE weakness, see comprehensive ortho exam in office notes. Integumentary: Warm, Dry, [place]. Neurologic: Alert, Oriented. Psychiatric: Cooperative, Appropriate mood & affect. Review / Management Results review: Labs (Last four charted values) WBC 9.5 (JAN 12) HB 13.7 (JAN 12) HCT 41.3 (JAN 12) Plt 238 (JAN 12) Na 137 (JAN 12) K 4.1 (JAN 12) Cl 105 (JAN 12) CO2 29 (JAN 12) BUN H 23 (JAN 12) Cr 0.70 (JAN 12) Glu R 95 (JAN 12) Ca 9.1 (JAN 12) PT 10.1 (JAN 12) INR 1.0 (JAN 12) PTT 27.8 (JAN 12) . Impression and Plan Condition: Stable. documented in this encounter Plan of Treatment Not on file documented as of this encounter Visit Diagnoses Not on filedocumented in this encounter Care Teams Operations Officer Afloat Relationship Specialty Start Date End Date Matheus Boggs MD [address] [place] [facility] [address] [place] [phone] PCP - General Family Medicine 09/05/22 documented as of this encounter
--- OUTSIDE RECORDS SUMMARY | 2025-03-02 10:56 | XMS_ITS | Encounter Summary ---
Author Organization [employer] ([place], [place], [place], [place]) Address [address] [place] [address] Care Team Providers Care Vfx Artist Name Role Phone Matheus Boggs MD Primary Care Provider + [phone] Encounter Details Date Type Department Care Team (Late st Contact Info) Description 11/06/2020 Transcribed Document [facility] Radiology [address] [place] [id number] Lizz Gonzalez MD [facility] [place] [address] Social History Tobacco Use Types Packs/Day Years [...] Conversion Note - Lizz Gonzalez MD - 11/06/2020 9:22 AM EDT Patient: CLEMENT WALKER Age: 75 years Sex: Female : 1945 Associated Diagnoses: None 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 NSAIDs- Rash. Zolpidem- Hyperactive. Severity Not Documented Bactrim- Rash. Percodan- Rash. Terramycin- Swelling of throat and rash. Uncoded Allergy (See Comment)- No reactions were documented., Allergies (7) Active Reaction codeine Tongue swelling NSAIDs Rash zolpidem Hyperactive Bactrim Rash Percodan Rash Terramycin Rash Uncoded Allergy (See Comment) None Documented Current medications: (Selected) Documented Medications Documented Align 4 mg oral capsule: 1 Cap, Oral, Daily Arnuity Ellipta: 100 mcg, Inhalation, [id number], PRN: Wheezing, 0 Refill(s) Levoxyl: 125 mcg, Oral, Daily, 0 Refill(s) Singulair: 10 mg, Oral, At Bedtime, 0 Refill(s) Ventolin HFA: 2 Puff, Inhalation, Q4H, PRN: as needed for wheezing, 0 Refill(s) acebutolol: 200 mg, Oral, BID, 0 Refill(s) fexofenadine: 180 mg, Oral, Daily, 0 Refill(s) fluticasone 50 mcg/inh nasal spray: 2 Newberry, Nasal, BID, PRN: Allergies, 16 Gram, 0 Refill(s) hydrochlorothiazide-irbesartan 12.5 mg-150 mg oral tablet: 1 Tab, Oral, Daily, 30 Tab, 0 Refill(s) liothyronine: 5 mcg, Oral, Daily, 0 Refill(s) meloxicam 7.5 mg oral tablet: 1 Tab, Oral, Daily, 0 Refill(s) nitrofurantoin macrocrystals 50 mg oral capsule: 1 Cap, Oral, At Bedtime, 0 Refill(s), Home Medications (12) Active acebutolol 200 mg, Oral, BID Align 4 mg oral capsule 4 mg = 1 Cap, Oral, Daily Arnuity Ellipta 100 mcg, PRN, Inhalation, [id number] fexofenadine 180 mg, Oral, Daily fluticasone 50 mcg/inh nasal spray 2 Newberry, PRN, Nasal, BID hydrochlorothiazide-irbesartan 12.5 mg-150 mg oral tablet 1 Tab, Oral, Daily Levoxyl 125 mcg, Oral, Daily liothyronine 5 mcg, Oral, Daily meloxicam 7.5 mg oral tablet 7.5 mg = 1 Tab, Oral, Daily nitrofurantoin macrocrystals 50 mg oral capsule 50 mg = 1 Cap, Oral, At Bedtime Singulair 10 mg, Oral, At Bedtime Ventolin HFA 2 Puff, PRN, Inhalation, Q4H , No qualifying data available Problem list: All Problems Urinary tract infection / SNOMED CT 958558150 / Confirmed hypo Thyroid disease / SNOMED CT 993261266 / Confirmed Sinusitis / SNOMED CT 76157002 / Confirmed Seasonal allergies / SNOMED CT 5574682221 / Confirmed Renal calculus / SNOMED CT 720574760 / Confirmed Thyroid mass benign / SNOMED CT 5082821242 / Confirmed Irritable bowel syndrome / SNOMED CT 80251192 / Confirmed Incontinence/Frequency / SNOMED CT 40159742 / Confirmed Hyperlipidemia / SNOMED CT 28679549 / Confirmed High blood pressure / SNOMED CT 42121810 / Confirmed Hiatal hernia / SNOMED CT 573352659 / Confirmed Hemorrhoids / SNOMED CT 061618446 / Confirmed Hard of hearing has aides / SNOMED CT 948591830 / Confirmed Shortness of breath / SNOMED CT 556371589 / Confirmed Difficulty swallowing / SNOMED CT 28572382 / Confirmed H/O bilateral Cataract / SNOMED CT 164187904 / Confirmed Cardiac syndrome X / SNOMED CT 746647048 / Confirmed Bursitis / SNOMED CT 895840400 / Confirmed At risk for sleep apnea / IMO 99372963 / Confirmed Asthma / SNOMED CT 880657663 / Confirmed Arthritis osteo / SNOMED CT 5506464 / Confirmed Angina / SNOMED CT 073562873 / Confirmed Allergic rhinitis / SNOMED CT 113344964 / Confirmed, Active Problems (23) Allergic rhinitis [...] Procedure history: double abdominal hernia repair in 2015 at 70 Years. sinus surgery in 2012 at 67 Years. bilateral knee arthroscopy X 2 each in 2005 at 61 Years. thyroid lobectomy right in 1997 at 53 Years. lap cholecystectomy in 1997 at 53 Years. bladder tac in 1993 at 49 Years. total hysterectomy in 1982 at 38 Years. X 2. abdominal hernia repair. right knee replacement. EGD - Esophagogastroduodenoscopy ([id number]). catarct ext. iol ou. Social History Social & Psychosocial Habits Alcohol 01/13/2020 Alcohol Use History, Social Habits No Substance Abuse 01/13/2020 Recreational Drug Use History No Recreational Drug Use Last 12 Months No Tobacco 01/13/2020 Smoking Status Never (less than 100 in l Smokeless Tobacco Status Never . Physical Examination VS/Measurements No qualifying data available General: Alert and oriented, No acute distress, obese. Eye: Pupils are equal, round and reactive to light, Extraocular movements are intact, glasses. HENT: Normocephalic, EKUK. Neck: Supple, Non-tender. Respiratory: Lungs are clear to auscultation, Respirations are non-labored. Cardiovascular: Normal rate, Regular rhythm, No murmur, No gallop, No edema. Gastrointestinal: Soft, Non-tender. Genitourinary: No costovertebral angle tenderness. Lymphatics: No lymphadenopathy neck, axilla, groin. Musculoskeletal: painful ROM L knee, LLE weakness, see comprehensive ortho exam in office notes. Integumentary: Warm, Dry, [place]. Neurologic: Alert, Oriented. Psychiatric: Cooperative, Appropriate mood & affect. Review / Management Results review: Labs (Last four charted values) WBC 7.5 (OCT 19) HB 13.6 (OCT 19) HCT 42.2 (OCT 19) Plt 260 (OCT 19) Na L 135 (OCT 19) K 4.0 (OCT 19) Cl 102 (OCT 19) CO2 31 (OCT 19) BUN 18 (OCT 19) Cr 0.70 (OCT 19) Glu R 102 (OCT 19) Ca 10.0 (OCT 19) PT 10.0 (OCT 19) INR 1.0 (OCT 19) PTT 25.0 (OCT 19) . Impression and Plan Condition: Stable. documented in this encounter Plan of Treatment Not on file documented as of this encounter Visit Diagnoses Not on filedocumented in this encounter Care Teams Vfx Artist Relationship Specialty Start Date End Date Matheus Boggs MD [address] [place] [facility] [address] [place] [phone] PCP - General Family Medicine 09/05/22 documented as of this encounter
--- OUTSIDE RECORDS SUMMARY | 2025-03-02 10:56 | XMS_ITS | Encounter Summary ---
Author Organization [employer] ([place], [place], [place], [place]) Address [address] [place] [address] Care Team Providers Care Family Practice Physician Name Role Phone Matheus Boggs MD Primary Care Provider + [phone] Encounter Details Date Type Department Care Team (Late st Contact Info) Description 11/06/2020 Transcribed Document [facility] Radiology [address] [place] [phone] Lizz Gonzalez MD [facility] [place] [address] Social History Tobacco Use Types Packs/Day Years [...] Note - Lizz Gonzalez MD - 11/06/2020 12:13 PM EDT Patient: MARY WALKER V Age: 75 Years Sex: Female : 1945 *Operation Left total knee arthroplasty Indication for Surgery Pleasant 75-year-old female well-known to me from a recent right TKA. The patient has end-stage osteoarthritis of the above-mentioned knee. They have otherwise failed conservative measures and now present for total knee arthroplasty. The risks benefits and alternatives have been explained to the patient in detail and they have voiced their agreement. *Preoperative Diagnosis Osteoarthritis left knee *Postoperative Diagnosis Osteoarthritis left knee *Surgeon(s) Surgeon: Carlos Rvda Master Certified Rv Technician: Devin Ventura CSA *Procedure Narrative Patient identified in the preoperative [...] as well as the intercondylar notch. The ACL and PCL were resected. Next, distal femoral submersible pilot hole was drilled and the intramedullary guide arun was placed and pinned. Distal femur was cut. Next, proximal tibia was exposed. The extramedullary guide placed perpendicular to the mechanical axis and the tibia set to 5 degrees of slope. Appropriate resection level was set and the proximal tibia was cut. We then proceeded to balance the knee in extension with releases as noted above. Next, knee was flexed up. Epicondylar axis marked with a Bovie. Femur was sized. The FuZion gap butt presser was placed and tensed. Posterior condyle resection as noted above. Drill holes made through the butt presser and the appropriately sized four-in-one block placed [...] motion. Next, patella was everted, measured, and resected. Lug holes drilled, trial button placed. Tracking was assessed. Lateral release performed at this point if necessary. All remaining trials were removed. Sclerotic bone was perforated with a drill. Exposed bony ends were thoroughly irrigated and dried. Cementation of final components took place in a single stage using high viscosity Simplex cement. Base plate was irrigated, and the final polyethylene insert was impacted into place. Locking mechanism was engaged. Knee was held in place until [...] acid was then injected into the joint. Tourniquet was let down at this point. Bleeding controlled with electrocautery. Skin closed in layers with Vicryl, Stratafix, and Dermabond. Wound was covered with Aquacel dressing. Next, drapes were removed. Patient carefully transferred to stretcher. Compression stocking and Cryo/Cuff placed in the operative extremity. The patient was then extubated without incident, and taken to PACU in stable condition. All instruments, sponge, needle counts correct at the case end of the case. Drains/Packs Used None Anesthesia General endotracheal anesthesia with adductor canal and sciatic nerve blocks *Estimated Blood Loss 50 cc *Findings Abx: 2g Ancef Implants: Eren Persona femoral component: 6 narrow CR Eren Persona tibial baseplate: D Tibial insert: 10 mm MC Patellar button: 32 mm symmetric Patellar preparation: reamed Pre op deformity: 6 degrees varus Correctable: yes Flexion contracture: none Distal femoral cut: 5 deg, 11 mm Proximal tibial cut: 10 mm off lateral side Releases in extension: Deep MCL, PM capsule Initial extension gap: 19 mm Posterior condylar resection: 19 mm Pre-reconstructed patellar thickness: 22 mm Post-reconstructed patellar thickness: 22.5 mm Stability: 0- 0 mm 20- 0 mm 90- 0 mm Patellar tracking: normal Lateral release: no ROM with capsule closed: 0-120 Tourniquet time: 48 min Other: none *Specimen(s) Bone to pathology Complications None Technique Cemented Eren medial congruent TKA Date of Service No qualifying data available. documented in this encounter Plan of Treatment Not on file documented as of this encounter Visit Diagnoses Not on filedocumented in this encounter Care Teams Family Practice Physician Relationship Specialty Start Date End Date Matheus Boggs MD [address] [place] [facility] [address] [place] [phone] PCP - General Family Medicine 09/05/22 documented as of this encounter
--- OUTSIDE RECORDS SUMMARY | 2025-03-02 10:56 | XMS_ITS | Encounter Summary ---
Author Organization [employer] ([place], [place], [place], [place]) Address [address] [place] [address] Care Team Providers Care Certified Coatings Inspector Name Role Phone Matheus Boggs MD Primary Care Provider + [phone] Encounter Details Date Type Department Care Team (Late st Contact Info) Description 02/01/2020 Transcribed Document [facility] [place] [facility] [place] [address] ProviderCristopher MD [address] [place] [address] Social History Tobacco Use Types Packs/Day [...] Note - Cristopher Kent MD - 02/01/2020 2:07 PM CDT [facility] [place] [address] MARY WALKER V :1945 Visit Time:01/31/2020 Your Visit Summary Your Care Team Admitting Physician - DEAN GONZALEZ MD-ORT Attending Physician - DEAN GONZALEZ MD-ORT Primary Care Physician - MATHEUS BOGGS (REF), MAXIM Referring Physician - DEAN GONZALEZ MD-ORT MULBERRY, BRIAN (REF), MAXIM STAPLETONY, NOT LISTED Your Diagnosis History of knee replacement Unilateral primary osteoarthritis, right knee, Unilateral primary osteoarthritis, right knee Discharge Vitals Temperature 36.7 ??C Heart Rate (Monitored) 55 Blood Pressure 104/65 What to do next Instructions From Your Care Team Diet after Discharge: Resume usual diet as tolerated, Drink at least 8-10 glasses of water per day Activity after Discharge: As tolerated Lifting Restrictions: No heavy lifting over 10 pounds Weight Bearing: Full weight bearing Driving after Discharge: Do not drive Showering/Bathing: May shower, No tub bathing, soaking or swimming Notify Provider of: Foul smelling drainage from site, increasing redness, tenderness, and heat. Notify of fever greater than 101, pain that cannot be relieved by pain medication, excess drainage after 7 days, and/or if incision begins to open. Wound/Incision Care after Discharge: Keep operative site/wound site clean and dry, Keep aquacel dressing in place for 7-10 days, then remove and leave site open to air. Medical Equipment for Home Use: Home Health Services: Community Services: Instructions: Continue daily exercises and gait training. May use ice packs (30 min on and 30 min off). Wear SAMIA hose as often as possible for 6 weeks. Keep zero foam in place when laying or sitting. Discharge Follow Up Instructions: Follow-up Dr. Gonzalez 3 wks ([phone]) Follow Up Instructions: Continue SAMIA hose for 6 weeks Follow Up Instructions: Leave Aquacel dressing in place x 7-10d, then open to air. Follow-Up Appointments Follow Up with SHWETA DANGELO PA-ORT When 02/21/2020 03:30 PM EDT Where: [facility] [employer] [address]- Medications What How Much When Instructions Next Dose acetaminophen-oxyCODONE (Percocet 5/ 325 oral tablet) 1 Tablet(s) Oral Every 4 Hours as needed for Pain (Severe 7-10) not to exceed 6 tablets/ day Printed Prescription aspirin (aspirin 81 mg oral tablet) 1 Tablet(s) Oral Two Times A Day Duration: 42 Day(s) Printed Prescription Ayde 7/14/20 9:00 PM docusate (Colace 100 mg oral capsule) 1 Capsule(s) Oral Two Times A Day as needed for for constipation Duration: 30 Day(s) Printed Prescription Friday02/01/20 9:00 PM ferrous gluconate (ferrous gluconate 324 mg (37.5 mg elemental iron) oral tablet) 1 Tablet(s) Oral Every Day Printed Prescription Friday02/02/20 9:00 AM gabapentin (Neurontin 300 mg oral capsule) 1 Capsule(s) Oral At Bedtime as needed for Sleep Printed Prescription Friday02/01/20 9:00 PM meloxicam (meloxicam 7.5 mg oral tablet) 7.5 Milligram(s) Oral Every Day Printed Prescription Friday02/02/20 9:00 AM acebutolol 200 Milligram(s) Oral Two Times A Day Friday02/01/20 9:00 PM albuterol (Ventolin HFA) 2 Puff(s) Inhalation Every 4 Hours as needed for as needed for wheezing fexofenadine 180 Milligram(s) Oral Every Day Friday02/02/20 9:00 AM fluticasone (Arnuity Ellipta) 100 Microgram(s) Inhalation Interval Every 24 Hours as needed for Wheezing fluticasone nasal (fluticasone 50 mcg/ inh nasal spray) 2 Rome(s) Nasal Two Times A Day as needed for Allergies Friday02/01/20 9:00 PM hydrochlorothiazide-irbesartan (hydrochlorothiazide-irbesartan 12.5 mg-150 mg oral tablet) 1 Tablet(s) Oral Every Day hold if systolic blood pressure is less than 110 Friday02/02/20 9:00 AM hydrOXYzine (hydrOXYzine hydrochloride) 25 Milligram(s) Oral Three Times A Day as needed for as needed for anxiety levothyroxine (Levoxyl) 125 Microgram(s) Oral Every Day Friday02/02/20 9:00 AM liothyronine 5 Microgram(s) Oral Every Day Friday02/02/20 9:00 AM montelukast (Singulair) 10 Milligram(s) Oral At Bedtime Friday02/01/20 9:00 PM Non Formulary (allerlgy shots) 1 SubCutaneous Every 4 Weeks Take your medications faithfully. Do NOT skip [...] your retail pharmacy guidance. Allergies NSAIDs (Rash) aspirin (Rash) codeine (Tongue swelling, Rash) zolpidem (Hyperactive) Bactrim (Unknown) Percodan (Rash) Terramycin (Swelling of throat, Rash) Immunizations This Visit No Immunizations Found Education Materials Discharge Instructions for Total Knee Replacement Your [...] before and after changing the dressing. Activity ??? You may put weight on your leg when you walk, unless your surgeon tells you not differently. Use your walker until the therapist or surgeon say you do not need it anymore. Continue your exercises from physical therapy. ??? Complete straightening exercises (whether using Zero Knee Foam or ???Tubs?? ) AT LEAST three times a day for 30 minutes, keep toes pointed to ceiling. Keep knee straight and extended unless you are doing bending exercises. No pillow under knee. ??? Stay active, get up every 1-2 hours, walk short distances, and walk a little more each week. No driving until cleared by your surgeon. ??? If your surgeon has ordered support hose, wear them for 6 weeks in order to prevent blood clots. Take them off 1-2 times per day for about 30 minutes-1 hour. Check your skin for red or open areas under the hose. They can be bought online and at many pharmacies, be sure that compression is 15-20mmHg and that they are thigh-high. ??? If you have a CPM, use it 2 hours 2x/day. ??? For swelling, elevate your leg above your heart. Remember to keep knee straight and NOT bent, unless you are doing your bending exercises. ??? Cold therapy 30 minutes on and 30 minutes off with cloth or clothing between skin and cold wrap. General Instructions: ??? Eat 25-35 grams of fiber every day. [...] your home health nurse or surgeon office. ??? Continue using your incentive spirometer to keep fever and lung infection away. Aim for 10 breaths every hour while you are awake. ??? Take pain medicine as needed, especially before therapy. ??? Let your doctors and dentist know you [...] of Dr. Gonzalez or Dr. Arthur, call [phone] If you are a patient of Dr. German, call [phone] Nurse Navigator: Ivanna Carrasco Office: [phone]; ; available during regular business hours Emergency Awareness and Preventative Care STROKE is [...] Assistance with quitting is available by contacting [phone]. This is a free resource providing counseling, [...] This Visit (last charted value for your 01/31/2020 visit) Hematology 02/01/2020 2:57 AM WBC: 11.5 K/uL -- Normal range between ( 4.5 and 10.5 ) RBC: 3.95 Million/uL -- Normal range between ( 3.93 and 5.22 ) Hct: 37.7 % -- Normal range between ( 34.1 and 44.9 ) Hgb: 12.4 g/dL -- Normal range between ( 11.2 and 15.7 ) Platelet Count: 189 K/uL -- Normal range between ( 163 and 369 ) MCH: 31.4 pg -- Normal range between ( 25.6 and 32.2 ) MCHC: 32.9 Gram/dL -- Normal range between ( 31.5 and 35.7 ) MCV: 95.4 fL -- Normal range between ( 79.0 and 94.8 ) Slide Review: No RDW: 12.9 % -- Normal range between ( 11.7 and 14.9 ) MPV: 10.4 fL -- Normal range between ( 9.4 and 12.4 ) 01/13/2020 10:44 AM Eos %: 1.1 % -- Normal range between ( 0.0 and 7.0 ) Haakon #: 0.72 K/uL -- Normal range between ( 0.16 and 1.00 ) Eos #: 0.10 x10(3)/uL -- Normal range between ( 0.00 and 0.80 ) Haakon %: 7.6 % -- Normal range between ( 3.0 and 9.0 ) Baso %: 0.4 % -- Normal range between ( 0.0 and 1.5 ) Baso #: 0.04 x10(3)/uL -- Normal range between ( 0.00 and 0.20 ) Neut %: 69.4 % -- Normal range between ( 34.0 and 71.0 ) Neut #: 6.58 K/uL -- Normal range between ( 1.56 and 6.13 ) Lymph %: 21.0 % -- Normal range between ( 19.3 and 53.1 ) Lymph #: 1.99 x10(3)/uL -- Normal range between ( 1.00 and 3.90 ) IG#: 0.05 x10(3)/uL -- Normal range between ( 0.00 and 0.05 ) IG%: 0.50 % -- Normal range between ( 0.00 and 0.60 ) Microbiology 01/28/2020 12:25 PM Novel Coronavirus 2019: Not Detected 01/13/2020 10:44 AM MRSA Surveillance: See Result General Chemistry 02/01/2020 2:57 AM Creatinine Level: 0.70 mg/dL -- Normal range between ( 0.55 and 1.02 ) Sodium Level: 137 mmol/L -- Normal range between ( 136 and 146 ) Potassium Level: 3.9 mmol/L -- Normal range between ( 3.5 and 5.1 ) Chloride Level: 109 mmol/L -- Normal range between ( 102 and 112 ) Carbon Dioxide Level: 21 mmol/L -- Normal range between ( 21 and 32 ) Anion Gap: 11 -- Normal range between ( 9 and 20 ) Bun/Creatinine: 17.1 -- Normal range between ( 8.0 and 20.0 ) Calcium Level: 8.4 mg/dL -- Normal range between ( 8.4 and 10.1 ) eGFR : >60 mL/min/1.73m2 eGFR NonAfrican: >60 mL/min/1.73m2 Glucose Level: 148 mg/dL -- Normal range between ( 74 and 106 ) Blood Urea Nitrogen: 12 mg/dL -- Normal range between ( 7 and 22 ) 01/13/2020 10:44 AM Hgb A1C: 5.8 % eAVG Glucose: 120 mg/dL Coagulation 01/13/2020 10:44 AM INR: 1.0 -- Normal range between ( 0.9 and 1.1 ) PTT: 27.8 Second(s) -- Normal range between ( 24.0 and 34.0 ) PT: 10.1 Second(s) -- Normal range between ( 9.6 and 12.0 ) Patient Name:MARY WALKER V I have received and understand this information and was given the opportunity to ask questions. Patient/Floor Layer Apprentice Name: Patient/Floor Layer Apprentice Signature: Relationship to Patient: Clinician/Hospital Floor Layer Apprentice Signature: Date: Electronically signed by Interface, [facility] Conversion Refrigeration Plant Operator Cerner at 11/06/2022 1:12 PM CDT documented in this encounter Plan of Treatment Not on file documented as of this encounter Visit Diagnoses Not on filedocumented in this encounter Care Teams Certified Coatings Inspector Relationship Specialty Start Date End Date Matheus Boggs MD [address] [facility] [address] [place] [address] PCP - General Family Medicine 09/05/22 documented as of this encounter
--- OUTSIDE RECORDS SUMMARY | 2025-03-02 10:56 | XMS_ITS | Encounter Summary ---
Author Organization [employer] ([place], [place], [place], [place]) Address [address] [place] [address] Care Team Providers Care Railroad Inspector Name Role Phone Matheus Boggs MD Primary Care Provider + [phone] Encounter Details Date Type Department Care Team (Late st Contact Info) Description 01/31/2020 Transcribed Document [facility] [place] Family Medicine [address] [place] [address] ProviderCristopher MD [address] [place], [place] [id number] Social History Tobacco Use Types Packs/Day Years [...] ProviderMD - 01/31/2020 12:46 PM CDT Evaluation, Physical Therapy Entered On: 01/31/2020 13:58 EDT Performed On: 01/31/2020 13:51 EDT by EDU BARNES, PT General Information, PT Visit Type, PT : Initial evaluation Patient Orders : Order Date Order Ordering 01/31/2020 12:47 PT Evaluation and Treatment Ordered By: DEAN ALVA MD-ORT 01/31/2020 12:47 PT Treatment Instructions Ordered By: DEAN ALVA MD-ORT 01/31/2020 12:47 PT Treatment Instructions Ordered By: DEAN ALVA MD-ORT 01/31/2020 12:47 PT Treatment Instructions Ordered By: DEAN ALVA MD-ORT 01/31/2020 12:47 PT Treatment Instructions Ordered By: DEAN ALVA MD-ORT 01/31/2020 12:47 PT Treatment Instructions Ordered By: DEAN ALVA MD-ORT Active Diagnoses : No Qualifying Diagnoses Therapy Diagnosis, PT : Aftercare following R TKA Onset of Problem, PT : 01/31/2020 EDT Admission Date : 01/31/2020 06:33 Co-treated by, PT : Occupational Therapist Personal Devices : Personal Devices No Devices Recorded Assistive Devices : Assistive Devices No Devices Recorded EDU BARNES, PT - 01/31/2020 13:51 EDT General Status Patient Received Status : Supine in bed Treatment Start Time : 01/31/2020 13:30 EDT Patient Left Status : Up in chair, RN/PCT informed, Communication board completed, All needs met and within reach, Other: SCd's, ICE, Bone Foam RN/PCT Informed Comment : JERZY leon and pt consent Treatment End Time : 01/31/2020 13:45 EDT Treatment Time : 15 Minute(s) EDU BARNES, PT - 01/31/2020 13:51 EDT History and Environment Living Situation, Therapy : Home Patient Lives With : Spouse Persons Assisting Patient at Home : Child/Children, Friend(s) Professional Skilled Services : None Persons Providing Information : Patient Home Equipment Therapy, PT : None Home Setup : Basement, One story Stairs : No EDU BARNES, PT - 01/31/2020 13:51 EDT Prior Level of Function PT GRID Prior LOF Ambulation, Household : Independent Prior LOF Ambulation, Community : Independent Prior LOF Bed Mobility : Independent Prior LOF Toileting : Independent Prior LOF Transfer : Independent EDU BARNES, PT - 01/31/2020 13:51 EDT Upper Extremity Right UE Active ROM : WFL Right UE Strength : WFL Left UE Active ROM : WFL Left UE Strength : WFL EDU BARNES, PT - 01/31/2020 13:51 EDT Lower Extremity RLE Active ROM : Impaired Right LE Strength : Impaired EDU BARNES, PT - 01/31/2020 13:51 EDT RLE ROM Grid Knee Flexion (0-140) Knee Extension (0-0) Active : 0 Active Assist : 94 EDU BARNES, PT - 01/31/2020 13:51 EDT EDU BARNES, PT - 01/31/2020 13:51 EDT LLE Active ROM : WFL Left LE Strength : WFL EDU BARNES, PT - 01/31/2020 13:51 EDT Functional Mobility Mobility Grid Supine to Sit : Rehab Minimal assistance Sit to Stand : Rehab Minimal assistance Bed to Chair : Rehab Minimal assistance Stand to Sit : Supervision/set-up EDU BARNES, PT - 01/31/2020 13:51 EDT Sit to Stand Device : Belt, gait, Walker, front wheel Bed to Chair Device : Belt, gait, Walker, front wheel EDU BARNES, PT - 01/31/2020 13:51 EDT Gait Training/Assessment, PT Weight Bearing Status : As tolerated Gait Assistance Level : Assist, minimal Walking Distance : 4ft to recliner at bedside, no LOB, pt groggy and required increased cues for safe sequencing of assistive device, no knee buckling. Ambulatory Devices : Gait belt, Walker, front wheel Gait Deviations : Yes EDU BARNES PT - 01/31/2020 13:51 EDT Neuromuscular Reeducation, PT Balance Comment : SBA static sitting, CGA static standing with RWx EDU BARNES, PT - 01/31/2020 13:51 EDT Neurological/Sensory Overall Sensory Response : Intact Overall Sensory Response Comment : numbness and foot drop RLE EDU BARNES PT - 01/31/2020 13:51 EDT Activity Tolerance, PT Activity Comment : groggy, but no acute complaints EDU BARNES, PT - 01/31/2020 13:51 EDT Cognition Assessment, PT Orientation : Oriented x 4 Attention Assessment : Present EDU BARNES PT - 01/31/2020 13:51 EDT Edu Topics Physical Therapy Education Grid Bed Mobility Training : Returns demonstration Gait Training : Needs reinforcement Role of Physical Therapy : Verbalizes understanding Safety : Verbalizes understanding Transfer Training : Needs reinforcement Use of Assistive Device : Needs reinforcement EDU BARNES, PT - 01/31/2020 13:51 EDT Indication Assesessment, PT Physical Therapy Indicated : Yes PT Problem List : Impaired, endurance tolerance, Impaired, gait, Impaired, joint mobility, Impaired, stair mobility, Impaired, standing balance, Impaired, strength, Impaired, transfers Potential Barriers To Therapy : None evident Rehabilitation Potential : Good EDU BARNES, PT - 01/31/2020 13:51 EDT Plan of Care, PT PT Tx Plan/Goals Established w Patient : Yes PT Frequency Rehab : Daily, twice (bid) PT Duration Rehab : Fourteen days PT Treatments Planned : Gait training, Safety education, Stair training, Therapeutic exercises, Transfer training EDU BARNES, PT - 01/31/2020 13:51 EDT Long-Term Goals Mobility/Bed Mobility LTG PT Grid Goal #1 Goal #2 Activity : Sit to stand Supine to sit Assist : Supervision or set-up Independent, complete Equipment : Walker, front wheel Date to Meet : 02/14/2020 EDT 02/14/2020 EDT Goal Status : Intial Goal Intial Goal EDU BARNES, PT - 01/31/2020 13:51 EDT EDU BARNES, PT - 01/31/2020 13:51 EDT Ambulation LTG Grid Goal #1 Device : Walker, front wheel Distance : 100ft Assist : Supervision or set-up Date to Meet : 02/14/2020 EDT Goal Status : Intial Goal EDU BARNES, PT - 01/31/2020 13:51 EDT Treatment Note Subjective Comment : Pt agreeable to PT allison, states pain 4/10 at rest. Patient's Response to Treatment : Fair initial tolerance, groggy and requires increased safety cues but otherwise tolerates all mobility well. Good use of RWx to prevent knee buckling. Educated about progressive use of bone foam to promote knee extension, up on bone foam with ice, SCD's at end of session. Additional Objective Information : R knee ROM 0-94 degrees Mikey sup-sit Mikey sit-stand with RWx Mikey gait x 4ft to recliner with RWx Assessment : Fair initial tolerance, limited by grogginess but responds well to safety cues. Will continue to progress transfers, gait, and therex to maximize recovery potential and promote safety and independence during mobility tasks. Plan for Treatment : Continue BID EDU BARNES PT - 01/31/2020 13:51 EDT Pain Assessment Pain Scaled Used : 0-10 Pain scale Pain Score Pre-Intervention : 4 Pain Score Post-Intervention. : 4 EDU BARNES, PT - 01/31/2020 13:51 EDT Image 1 - Images currently included in the form version of this document have not been included in the text rendition version of the form. Anticipated Discharge Needs, OT/PT Anticipated Discharge to : Home, with home health Anticipated Home Equipment : Commode, Frantz Recommend Continued Therapy at Discharge : Yes EDU BARNES, PT - 01/31/2020 13:[address] [facility] PT Charges PT Eval Low Complexity : 1 EDU BARNES, PT - 01/31/2020 13:51 EDT Electronically signed by Kee [facility] Conversion Air Motor Repairer Cerner at 11/06/2022 1:03 PM CDT documented in this encounter Plan of Treatment Not on file documented as of this encounter Visit Diagnoses Not on filedocumented in this encounter Care Teams Railroad Inspector Relationship Specialty Start Date End Date Matheus Boggs MD [address] [facility] [address] [place] [phone] PCP - General Family Medicine 09/05/22 documented as of this encounter
--- OUTSIDE RECORDS SUMMARY | 2025-03-02 10:56 | XMS_ITS | Encounter Summary ---
Author Organization [employer] ([place], [place], [place], [place]) Address [address] [place] [address] Care Team Providers Care Derrick Boat Lever Operator Name Role Phone Matheus Boggs MD Primary Care Provider + [phone] Encounter Details Date Type Department Care Team (Late st Contact Info) Description 02/07/2020 Transcribed Document [facility] [place] [address] [place] [address] ProviderCristopher MD [address] [place] [address] Social History Tobacco Use Types [...] Cerner Conversion Note - Cristopher ProviderMD - 02/07/2020 3:20 PM CDT Orthopedic Nurse Navigator Entered On: 02/07/2020 15:21 EDT Performed On: 02/07/2020 15:20 EDT by Tere Carrasco RN-Navigator Orthopedic Nurse Navigator Assessment Joint Navigator Assessment Note : LC called stating patient called-no home health yet. I called [facility], they accepted referral, it was confirmed, but they were waiting on an order. Referral and order resent. Attempted to reach patient, no answer. Tere Carrasco RN-Navigator - 02/07/2020 15:20 EDT Electronically signed by Kee [facility] Conversion Oceanology Teacher Cerner at 11/06/2022 12:54 PM CDT documented in this encounter Plan of Treatment Not on file documented as of this encounter Visit Diagnoses Not on filedocumented in this encounter Care Teams Derrick Boat Lever Operator Relationship Specialty Start Date End Date Matheus Boggs MD [address] [facility] [address] [facility] [place] [phone] PCP - General Family Medicine 09/05/22 documented as of this encounter
--- OUTSIDE RECORDS SUMMARY | 2025-03-02 10:56 | XMS_ITS | Encounter Summary ---
Author Organization [employer] ([place], [place], [place], [place]) Address [address] [place] [address] Care Team Providers Care Control Equipment Electrician Name Role Phone Matheus Boggs MD Primary Care Provider + [phone] Encounter Details Date Type Department Care Team (Late st Contact Info) Description 11/06/2020 Transcribed Document [address] [phone] Chris Keyes MD [address] [place] [address] Social History Tobacco Use Types Packs/Day Years [...] Conversion Note - Chris Keyes MD - 11/06/2020 10:23 AM EDT Patient: MARY WALKER V Age: 75 years Sex: Female : 1945 Associated Diagnoses: None Author: LI DIXON PA-FAM 11/06/2020 cc: medical management s/p left total knee arthroplasty HPI: Patient is a 75 yo female admitted to [facility] per Dr. Gonzalez for a left total [...] her. Denies prior stroke or seizure. Denies RI, CHF or cardiac arrhythmia. Denies DM. Denies [...] Allergy (See Comment) None Documented Home Medications (12) Active acebutolol 200 mg, Oral, BID Align 4 mg oral capsule 4 mg = 1 Cap, Oral, Daily Arnuity Ellipta 100 mcg, PRN, Inhalation, [id number] fexofenadine 180 mg, Oral, Daily fluticasone 50 mcg/inh nasal spray 2 Ciales, PRN, Nasal, BID hydrochlorothiazide-irbesartan 12.5 mg-150 mg oral tablet 1 Tab, Oral, Daily Levoxyl 125 mcg, Oral, Daily liothyronine 5 mcg, Oral, Daily meloxicam 7.5 mg oral tablet 7.5 mg = 1 Tab, Oral, Daily nitrofurantoin macrocrystals 50 mg oral capsule 50 mg = 1 Cap, Oral, At Bedtime Singulair 10 mg, Oral, At Bedtime Ventolin HFA 2 Puff, PRN, Inhalation, Q4H ROS: difficult to obtain due to fatigue after anesthesia Exam: Vitals Signs (last 24 hrs) Last Charted Minimum Maximum Temp 97.8 (NOV 06 08:33) 97.8 (NOV 06:33) 97.8 (NOV 06:33) Mon HR 59 (NOV 06:11) 59 (NOV 06:11) 60 (NOV 06:33) Resp Rate 20 (NOV 06:11) 20 (NOV 06:33) 20 (NOV 06:33) SBP 121 (NOV 06:11) 121 (NOV 06:11) 135 (NOV 06:33) DBP L 55 (NOV 06:11) L 55 (NOV 06 09:11) 64 (NOV 06 08:33) SpO2 98 (NOV 06:11) 97 (NOV 06 08:33) 98 (NOV 06 09:11) GEN: sleepy, NAD HEENT: NCAT, no icterus, no thrush, nares patent, CV: S1S2, no murmur. No LE edema Resp: CTAB, NL: no wheezes or rhonchi. Abd: Soft, NT, ND +BS Skin: no rashes on inspection and palpation. Ext: left leg surgical dressing intact. Neuro: O x 3, CN grossly intact Bandar: Labs Most Recent Last 28 days CBC Results-Most Recent Last 28 Days Event Name Event Result Date/Time WBC 7.5 K/uL 10/19/20 12:30:00 RBC 4.45 Million/uL 10/19/20 12:30:00 Hgb 13.6 g/dL 10/19/20 12:30:00 Hct 42.2 % 10/19/20 12:30:00 MCV 94.8 fL 10/19/20 12:30:00 MCH 30.6 pg 10/19/20 12:30:00 MCHC 32.2 Gram/dL 10/19/20 12:30:00 Platelet Count 260 K/uL 10/19/20 12:30:00 MPV 9.6 fL 10/19/20 12:30:00 RDW 12.5 % 10/19/20 12:30:00 Slide Review No 10/19/20 12:30:00 BMP Results (Most Recent Last 28 Days) Event Name Event Result Date/Time Sodium Level 135 mmol/L Low 10/19/20 12:30:00 Potassium Level 4 mmol/L 10/19/20 12:30:00 Chloride Level 102 mmol/L 10/19/20 12:30:00 Carbon Dioxide Level 31 mmol/L 10/19/20 12:30:00 Anion Gap 6 Low 10/19/20 12:30:00 Glucose Level 102 mg/dL 10/19/20 12:30:00 Blood Urea Nitrogen 18 mg/dL 10/19/20 12:30:00 Creatinine Level 0.7 mg/dL 10/19/20 12:30:00 eGFR >60 10/19/20 12:30:00 eGFR NonAfrican >60 10/19/20 12:30:00 Bun/Creatinine 25.7 High 10/19/20 12:30:00 Calcium Level 10 mg/dL 10/19/20 12:30:00 Other Lab Results (Most Recent Last 28 Days) Event Name Event Result Date/Time PT 10 Second(s) 10/19/20 12:30:00 INR 1 10/19/20 12:30:00 PTT 25 Second(s) 10/19/20 12:30:00 EKG sinus rodolfo, HR 55 Impression: advanced OA left knee -s/pLTKA per Dr. Gonzalez HTN HLD Plan: did med rec held hctz and ARB, reassess BP and renal fxn. Monitor HTN; add PRN's, hold parameters bowel regimen incentive spirometer PT/OT DVT prophylaxis noted Pain management deferred to surgeon will monitor hb/hct daily for signs of ongoing acute blood loss will monitor bun/cr daily for signs of dehydration, prerenal azotemia will monitor for signs/symptoms of post-op wound infection or hospital acquired infectious process resume outpatient medication regimen for comorbidities Assessment and treatment plan made in conjunction with Blessing Keyes MD Scribed by Sneha Tirado documented in this encounter Plan of Treatment Not on file documented as of this encounter Visit Diagnoses Not on filedocumented in this encounter Care Teams Control Equipment Electrician Relationship Specialty Start Date End Date Matheus Boggs MD [address] [place] [facility] [address] [place], [place] [phone] PCP - General Family Medicine 09/05/22 documented as of this encounter
--- OUTSIDE RECORDS SUMMARY | 2025-03-02 10:56 | XMS_ITS | Referral Summary ---
Author Organization [facility] Address [address] [address] Care Team Providers Care Boilermaker Welder Name Role Phone Unavailable Primary Care Provider Unavailabl e Social History Tobacco Use Types Packs/Day Years Used Date Smoking Tobacco: Never Assessed Comments Unknown Sex and Gender Information Value Date Recorded Sex Assigned at Not on file Legal Sex Female 8:32 PM EDT Gender Identity Not on file Sexual Orientation Not on file Plan of Treatment Not on file
--- OUTSIDE RECORDS SUMMARY | 2025-03-02 10:56 | XMS_ITS | Clinical Summary ---
Author Organization [facility] Address [address] [place] [address] Phone Care Team Providers Care Family Lawyer Name Role Phone Matheus Boggs MD Primary Care Provider + [phone] Social History Tobacco Use Types Packs/Day Years Used Date Smoking Tobacco: Never Assessed Comments Unknown Sex and Gender Information Value Date Recorded Sex Assigned at Not on file Legal Sex Female 1:46 PM EDT Gender Identity Not on file Sexual Orientation Not on file Plan of Treatment Health Maintenance Due Date Last Done Comments Wellness Exam Medicare 1948 Hepatitis C Screening 1963 DTaP/TDaP/Td (1 - Tdap) 1964 Pneumococcal Vaccine 50+ (1 of 1 - PCV) 1995 Zoster (1 of 2) 1995 Bone Density Screening 2010 RSV or 60+ (1 - 1-d ose 75+ series) 2020 COVID-19 Vaccine (1 - 2023-2 5 season) 2024 Influenza Vaccine (#1) 2025 Hepatitis B Vaccine Aged Out No longe r eligible based on patient's age to complete this topic Meningococcal B Vaccine Aged Out No l onger eligible based on patient's age to complete this topic Insurance MEDICARE [place] PART A AND B AARP SUPPLEMENTAL Care Teams Family Lawyer Relationship Specialty Start Date End Date Matheus Boggs MD [address] [place] [address] [place] [id number] PCP - General Family Medicine 12/02/16
--- OUTSIDE RECORDS SUMMARY | 2025-03-02 10:56 | XMS_ITS | Encounter Summary ---
Author Organization [employer] ([place], [place], [place], [place]) Address [address] [place] [address] Care Team Providers Care It Applications Manager Name Role Phone Matheus Boggs MD Primary Care Provider + [phone] Encounter Details Date Type Department Care Team (Late st Contact Info) Description 02/01/2020 Transcribed Document [facility] [place] [facility] [place] [address] ProviderCristopher MD [address] [place], [place] [id number] Social History Tobacco Use Types Packs/Day Years [...] Conversion Note - Cristopher ProviderMD - 02/01/2020 9:37 AM CDT Stroke/Warfarin Instructions Entered On: 02/01/2020 9:37 EDT Performed On: 02/01/2020 9:37 EDT by Malinda Warren RN Stroke/Warfarin Instructions Stroke/TIA Discharge Ins : N/A Warfarin Discharge Ins : N/A Malinda Warren RN - 02/01/2020 9:37 EDT documented in this encounter Plan of Treatment Not on file documented as of this encounter Visit Diagnoses Not on filedocumented in this encounter Care Teams It Applications Manager Relationship Specialty Start Date End Date Matheus Boggs MD [address] [facility] [address] [place] [phone] PCP - General Family Medicine 09/05/22 documented as of this encounter
--- OUTSIDE RECORDS SUMMARY | 2025-03-02 10:56 | XMS_ITS | Encounter Summary ---
Author Organization [facility] ([place], [place], [place], [place]) Address [address] [place] [address] Care Team Providers Care Construction Estimator Name Role Phone Matheus Boggs MD Primary Care Provider + [phone] Encounter Details Date Type Department Care Team (Late st Contact Info) Description 01/31/2020 Transcribed Document [facility] [place] [facility] [place] [address] ProviderCristopher MD [address] [place] [address] Social History Tobacco Use Types Packs/Day [...] Conversion Note - Cristopher ProviderMD - 01/31/2020 10:35 AM CDT [facility] Main OR PACU Summary Primary Physician: DEAN ALVA MD-ORT Finalized Date/Time: 01/31/20 15:49:48 Pt. Name: MARY WALKER/Sex: 1945 Female Med Rec #: [id number] Physician: DEAN ALVA MD-ORT Financial #: [id number] Pt. Type: O Room/Bed: 648/1 Admit/Disch: 01/31/20 06:33:00 - Institution: [facility] Main OR PACU I Case Times Entry 1 In PACU I 01/31/20 12:01:00 Ready for PACU 01/31/20 13:05:00 Discharge Discharge from PACU 01/31/20 13:05:00 I Last Modified By: SARIKA SCHUSTER RN 01/31/20 13:09:11 Finalized By: SARIKA SCHUSTER, RN Document Signatures Signed By: SARIKA SCHUSTER RN 01/31/20 13:12 SARIKA SCHUSTER RN 01/31/20 15:49 Unfinalized History Date/Time Username Reason for Unfinalizing Freetext Reason for Unfinalizing 01/31/20 15:49 DOROTHY Modify Pick List Electronically signed by Kee [facility] Conversion Licensed Weigher Cerner at 11/06/2022 1:00 PM CDT documented in this encounter Plan of Treatment Not on file documented as of this encounter Visit Diagnoses Not on filedocumented in this encounter Care Teams Construction Estimator Relationship Specialty Start Date End Date Matheus Boggs MD [address] [facility] [address] [place] [phone] PCP - General Family Medicine 09/05/22 documented as of this encounter
--- OUTSIDE RECORDS SUMMARY | 2025-03-02 10:56 | XMS_ITS | Encounter Summary ---
Author Organization [employer] ([place], [place], [place], [place]) Address [address] [place] [address] Care Team Providers Care Wild Animal Caretaker Name Role Phone Matheus Boggs MD Primary Care Provider + [phone] Encounter Details Date Type Department Care Team (Late st Contact Info) Description 11/06/2020 Transcribed Document [facility] [place] Family Medicine [facility] [place] [address] ProviderCristopher MD [address] [place] [id number] Social History Tobacco Use Types Packs/Day [...] Cerner Conversion Note - Historical ProviderMD - 11/06/2020 12:55 PM CDT Evaluation, Occupational Therapy Entered On: 11/06/2020 14:39 EDT Performed On: 11/06/2020 13:50 EDT by HANNAH PEREZ, OTR/L General Information, OT Visit Type, OT : Initial evaluation Patient Orders : Order Date Order Ordering 11/06/2020 12:55 OT Evaluation and Treatment Ordered By: DEAN ALVA MD-ORT 11/06/2020 12:55 OT Treatment Instructions Ordered By: DEAN ALVA MD-ORT Active Diagnoses : No Qualifying Diagnoses Therapy Diagnosis, OT : Decreased functional mobility, decreased ADL performance. Onset of Problem, OT : 11/06/2020 EDT Admission Date : 11/06/2020 06:53 Co-treated by, OT : Physical Therapist Personal Devices : Personal Devices No Devices Recorded Assistive Devices : Assistive Devices No Devices Recorded General Information Comment, OT : Diagnosis: L total knee replacement HANNAH PEREZ OTR/L - 11/06/2020 14:32 EDT General Status Patient Received Status : Supine in bed Treatment Start Time : 11/06/2020 13:37 EDT Patient Left Status : Up in chair, RN/PCT informed, All needs met and within reach Treatment End Time : 11/06/2020 13:50 EDT Treatment Time : 13 Minute(s) HANNAH PEREZ OTR/L - 11/06/2020 14:32 EDT History and Environment, OT Living Situation, Therapy : Home Patient Lives With : Alone Persons Assisting Patient at Home : Child/Children Professional Skilled Services : None Persons Providing Information : Patient, Child/Children Home Setup : One story Stairs : Yes Stair Location(s) : Outside Outside Stairs, Number of Steps : 1 Railing Outside : No HANNAH PEREZ OTR/L - 11/06/2020 14:32 EDT Prior LOF Bathing, OT : Independent Prior LOF Bed Mobility : Independent Prior LOF Upper Body Dressing, OT : Independent Prior LOF Lower Body Dressing, OT : Independent Prior LOF Toileting : Independent Prior LOF Transfer : Independent Prior LOF Grooming, OT : Independent Prior LOF for IADLs, OT : Independent HANNAH PEREZ OTR/L - 11/06/2020 14:32 EDT Upper Extremity Right UE Active ROM : WFL Right UE Strength : WFL Left UE Active ROM : WFL Left UE Strength : WFL Right UE Strength : WFL Left UE Strength : WFL HANNAH PEREZ OTR/L - 11/06/2020 14:32 EDT Self Care/Home Management, OT Self Feeding Assist Level, OT : Supervision or set-up Grooming Assist Level, OT : Supervision or set-up Bathing Assist Level, OT : Assist, moderate Upper Body Dressing Assist Level, OT : Assist, minimal Lower Body Dressing Assist Level, OT : Assist, moderate Toileting Assist Level : Assist, minimal Toilet Transfer Assist Level : Assist, moderate Shower Transfer Assist Level : Assist, moderate HANNAH PEREZ OTR/Marianeal - 11/06/2020 14:32 EDT Functional Mobility Mobility Grid Supine to Sit : Rehab Minimal assistance Sit to Stand : Rehab Moderate assistance Bed to Chair : Rehab Moderate assistance Stand to Sit : Rehab Minimal assistance Sit to Supine : Rehab Minimal assistance HANNAH PEREZ OTR/Marianela - 11/06/2020 14:32 EDT Cognition Assessment, OT Orientation : Oriented x 4 Cognition Assessment, OT : Intact HANNAH PEREZ OTR/Marianela - 11/06/2020 14:32 EDT Indication Assessment, OT Occupational Therapy Indicated : Yes Problem List, OT : Impaired, activities daily living, Impaired, endurance tolerance, Impaired functional mobility, Impaired, standing balance Rehabilitation Potential, OT : Good HANNAH PEREZ OTR/Marianela - 11/06/2020 14:32 EDT Plan of Care, OT OT Tx Plan/Goals Established w Patient : Yes OT Frequency Rehab : Five days per week OT Duration Rehab : Fourteen days OT Treatments Planned : Activities of daily living, Functional mobility training, Therapeutic activities HANNAH PEREZ OTR/Marianela - 11/06/2020 14:32 EDT Oyster Bed Worker Goals, OT Bathing LTG Grid Goal #1 Activity : Bathing Assist : Independent, modified Date to Meet : 11/20/2020 EDT Goal Status : Initial goal HANNAH PEREZ OTR/Marianela - 11/06/2020 14:32 EDT Dressing, Lower Body LTG Grid Goal #1 Activity : Dressing, Lower Body Assist : Independent, modified Date to Meet : 11/20/2020 EDT Goal Status : Initial goal HANNAH PEREZ OTR/Marianela - 11/06/2020 14:32 EDT Toileting LTG Grid Goal #1 Activity : Toileting Assist : Independent, modified Date to Meet : 11/20/2020 EDT Goal Status : Initial goal HANNAH PEREZ OTR/Marianela - 11/06/2020 14:32 EDT Toilet Transfer LTG Grid Goal #1 Activity : Toilet Transfer, Ambulatory Assist : Independent, modified Date to Meet : 11/20/2020 EDT Goal Status : Initial goal YI PEREZRENATE OTR/L - 11/06/2020 14:32 EDT Tub/Shower Transfer LTG Grid Goal #1 Activity : Tub/Shower Transfer, Ambulatory Assist : Independent, modified Date to Meet : 11/20/2020 EDT Goal Status : Initial goal ANAYI STEPHENSRENATE OTR/L - 11/06/2020 14:32 EDT Treatment Note Subjective Comment : Pt agreeable. Patient's Response to Treatment : Pt tolerated evaluation well. Additional Objective Information : Pt found supine in bed. Pt was min A for supine to sit. Pt was mod A for sit to stand and to ambulate to chair with RWx. Pt was educated on best practices for early mobility and avoidance of risk factors. Pt was left up in chair with all needs met and CL in reach. Assessment : Pt will benefit from skilled OT services during hosptial admission. Plan for Treatment : See goals. HANNAH PEREZ OTR/L - 11/06/2020 14:32 EDT Pain Assessment Pain Score Pre-Intervention : 0 ANA VERONICA YOUNG/L - 11/06/2020 14:32 EDT Image 1 - Images currently included in the form version of this document have not been included in the text rendition version of the form. [facility] OT Charges OT Eval Low Complexity : 1 ANA, VERONICA YOUNG/L - 11/06/2020 14:32 EDT Electronically signed by Kee [facility] Conversion Portable Machine Cutter Cerner at 11/06/2022 1:10 PM CDT documented in this encounter Plan of Treatment Not on file documented as of this encounter Visit Diagnoses Not on filedocumented in this encounter Care Teams Wild Animal Caretaker Relationship Specialty Start Date End Date Matheus Boggs MD [address] [place] [facility] [address] [place] [phone] PCP - General Family Medicine 09/05/22 documented as of this encounter
--- OUTSIDE RECORDS SUMMARY | 2025-03-02 10:56 | XMS_ITS | Encounter Summary ---
Author Organization [facility] (Formerly [facility])[3] Address [address] [place] [address] Care Team Providers Care Carry Out Clerk Name Role Phone Devin Mendoza MD Primary Care Provider Matheus Boggs MD Primary Care Provider Mitchell Oliva MD Unavailable [phone] Encounter Details Date Type Department Care Team (Late st Contact Info) Description 07/29/2013 Orders Only [facility]3] Physicians - Primary Care, [address] [place] [phone] Devin Mendoza MD [address] [place] [address] [place] [phone] Social History Tobacco Use Types Packs/Day [...] on file documented as of this encounter Procedures Procedure Name Priority Date/Time Associated Diagnosis Comments ID ECG ROUTINE ECG W/LEAST 1 2 LDS W/I&R Routine 09/17/2007 documented in this encounter Results * EKG/ELECTROCARDIOGRAM, COMPLETE (09/17/2007) us Devin Mendoza MD ID CARDIOVASCULAR SYSTEM SER VICES Final Result [facility] [address] [place] [address] documented in this encounter Visit Diagnoses Not on filedocumented in this encounter Care Teams Carry Out Clerk Relationship Specialty Start Date End Date Devin Mendoza MD PCP - General 04/29/08 09/13/14 Matheus Boggs MD [address] [place] [address] PCP - General Family Medicine 09/14/14 [place] [address] [place] [address]. [address] [place] [address] General Surgery 07/28/22 documented as of this encounter
--- OUTSIDE RECORDS SUMMARY | 2025-03-02 10:56 | XMS_ITS | Encounter Summary ---
Author Organization [employer] ([place], [place], [place], [place]) Address [address] [place] [address] Care Team Providers Care Field Care Manager Name Role Phone Matheus Boggs MD Primary Care Provider + [phone] Encounter Details Date Type Department Care Team (Late st Contact Info) Description 11/06/2020 Transcribed Document [facility] [place] [address] ProviderCristopher MD [address] [place] [id number] Social History Tobacco Use Types Packs/Day [...] Conversion Note - Cristopher ProviderMD - 11/06/2020 10:20 AM CDT [facility] Main OR IntraOp Summary Primary Physician: DEAN ALVA MD-MARIANELA Finalized Date/Time: 11/07/20 10:33:31 Pt. Name: MELISSA SIMON D.O.B./Sex: 1945 Female Med Rec #: [id number] Physician: DEAN ALVA MD-ORT Financial #: [id number] Pt. Type: O Room/Bed: [facility] Admit/Disch: 11/06/20 06:53:00 - Institution: [facility] IntraOp Case Attendance Entry 1 Entry 2 Entry 3 Case Attendee DEAN ALVA, JORGE A MUÑIZ MD-MARGA ESTES MD-ORMarycarmen SR. MANAGER, COPIER OPERATOR Role Performed Surgeon/Proceduralist, Anesthesiologist of COPIER OPERATOR/Nurse Hospitality Specialist First Record Time In 11/06/20 09:48:00 11/06/20 09:48:00 11/06/20 09:48:00 Time Out 11/06/20 11:34:00 11/06/20 11:34:00 11/06/20 11:34:00 Procedure Knee Total Joint Knee Total Joint Knee Total Joint Replacement(Left) Replacement(Left) Replacement(Left) Other Attendee Superficial Wound Closed By: Last Modified By: Kanwal Tolbert Rn Moore, Kimberly A, Rn Moore, Kimberly A, Rn 11/06/20 12:08:10 11/06/20 12:08:10 11/06/20 12:08:10 Entry 4 Entry 5 Entry 6 Case Attendee ANITA MEJÍA, Warren Robles, Surgical OTHER, ATTENDEE Home Theater Installer Role Performed Pipe Organ Technician, First Scrub, First Scrub, Second Time In 11/06/20 09:48:00 11/06/20 09:48:00 11/06/20 09:48:00 Time Out 11/06/20 11:34:00 11/06/20 11:34:00 11/06/20 11:34:00 Procedure Knee Total Joint Knee Total Joint Knee Total Joint Replacement(Left) Replacement(Left) Replacement(Left) Other Attendee Kenneth Ribera - [facility] Superficial Wound Closed By: Last Modified By: Kanwal Tolbert Rn Moore, Kimberly A, Rn Moore, Kimberly A, Rn 11/06/20 12:08:10 11/06/20 12:08:10 11/06/20 12:08:10 Entry 7 Entry 8 Entry 9 Case Attendee Jamshid Whitney I, Kanwal Esparza Rn OTHER, ATTENDEE #1 Role Performed Log Operations Coordinator, First Log Operations Coordinator, Second Vendor Time In 11/06/20 09:48:00 11/06/20 09:48:00 11/06/20 09:48:00 Time Out 11/06/20 11:34:00 11/06/20 11:34:00 11/06/20 11:34:00 Procedure Knee Total Joint Knee Total Joint Knee Total Joint Replacement(Left) Replacement(Left) Replacement(Left) Other Attendee orientee Joao Jason Superficial Wound Closed By: Last Modified By: Kanwal Tolbert, Kanwal Esparza Rn Moore, Kimberly A, Rn 11/06/20 12:08:10 11/06/20 12:08:10 11/06/20 12:08:10 [facility] IntraOp Case Attendance Audit 11/06/20 12:08:10 Group Contract Analyst: [id number] Modifier: [id number] <+> Time Out 1 <*> Procedure Knee Total Joint Replacement(Left) 2 <+> Time Out 2 <*> Procedure Knee Total Joint Replacement(Left) 3 <+> Time Out 3 <*> Procedure Knee Total Joint Replacement(Left) 4 <+> Time Out 4 <*> Procedure Knee Total Joint Replacement(Left) 5 <+> Time Out 5 <*> Procedure Knee Total Joint Replacement(Left) 6 <+> Time Out 6 <*> Procedure Knee Total Joint Replacement(Left) 7 <+> Time Out 7 <*> Procedure Knee Total Joint Replacement(Left) 8 <+> Time Out 8 <*> Procedure Knee Total Joint Replacement(Left) 9 <+> Time Out 9 <*> Procedure Knee Total Joint Replacement(Left) 11/06/20 10:57:55 Group Contract Analyst: [id number] Modifier: [id number] <+> 9 Case Attendee <+> 9 Role Performed <+> 9 Time In <+> 9 Procedure <+> 9 Other Attendee 11/06/20 10:28:37 Group Contract Analyst: [id number] Modifier: [id number] <+> 1 Time In <+> 1 Procedure 2 <+> Time In 2 <*> Procedure Knee Total Joint Replacement(Left) 3 <+> Time In 3 <*> Procedure Knee Total Joint Replacement(Left) 4 <+> Time In 4 <*> Procedure Knee Total Joint Replacement(Left) 5 <+> Time In 5 <*> Procedure Knee Total Joint Replacement(Left) 6 <+> Time In 6 <*> Procedure Knee Total Joint Replacement(Left) 7 <+> Time In 7 <*> Procedure Knee Total Joint Replacement(Left) 8 <+> Time In 8 <*> Procedure Knee Total Joint Replacement(Left) [facility] IntraOp Case Times Entry 1 Patient In Room Time 11/06/20 09:48:00 Out Room Time 11/06/20 11:34:00 Anesthesia Start Time 11/06/20 09:48:00 Stop Time 11/06/20 11:34:00 Surgery / Procedure Times Start Time 11/06/20 10:20:00 Stop Time 11/06/20 11:31:00 Last Modified By: Kanwal Tolbert Rn 11/06/20 12:08:08 [facility] IntraOp Case Times Audit 11/06/20 12:08:08 Group Contract Analyst: [id number] Modifier: [id number] <+> 1 Out Room Time <+> 1 Stop Time <+> 1 Stop Time 11/06/20 10:29:31 Group Contract Analyst: [id number] Modifier: [id number] <+> 1 Start Time [facility] IntraOp Cautery Entry 1 ESU Identification Cautery Type Monopolar ESU ID Number [id number] ID Type Hospital Number Cautery Settings Cut Setting 50 Coag Setting 50 ESU Grounding Pad Ground Pad Type Adult Grounding Pad Site Right Lower Abdomen Grounding Pad Jamshid Whitney RN Applied By Grounding Pad Site Warm, Dry, Intact Skin Condition Before Cautery Grounding Pad Site Unchanged Skin Condition After Cautery Last Modified By: Jamshid Whitney RN 11/06/20 10:01:36 [facility] IntraOp Communication Entry 1 Communication To Family/Significant other Comment start Communication By Jamshid Whitney RN Date and Time 11/06/20 10:22:00 Last Modified By: Jamshid Whitney RN 11/06/20 10:22:53 [facility] IntraOp Counts Verification Entry 1 Procedure Knee Total Joint Replacement(Left) Count Info Count Type Sponge, Sharps, Miscellaneous Counts Verification Baseline/pre-procedure Sequence Count Results Not Applicable Counts Performed By Count Performed By Warren Morris, Surgical (Scrub) Home Theater Installer Count Performed By Kanwal Tolbert Rn (RN) Last Modified By: Jamshid Whitney RN 11/06/20 10:00:23 [facility] IntraOp Counts Final Entry 1 Procedure Knee Total Joint Replacement(Left) Final Count Info Count Type Sponge, Sharps, Miscellaneous Counts Verification Skin Closure/end of Sequence procedure Count Results Correct, surgeon notified Counts Performed By Count Performed By OTHER, ATTENDEE (Scrub) Count Performed By Jamshid Whitney I RN (RN) Last Modified By: Jamshid Whitney RN 11/06/20 11:16:01 [facility] IntraOp Counts Final Audit 11/06/20 11:16:01 Group Contract Analyst: [id number] Modifier: [id number] 1 <*> Procedure Knee Total Joint Replacement(Left) 11/06/20 11:15:55 Group Contract Analyst: [id number] Modifier: [id number] 1 <*> Procedure Knee Total Joint Replacement(Left) 1 <+> Count Performed By (Scrub) 1 <+> Count Performed By (RN) [facility] IntraOp Cultures and Spec Summary Entry 1 Cultrures and Specimens Specimen Ordered: Yes Test(s) Routine/Path-Lab Requested/Final Disposition Last Modified By: Jamshid Whitney RN 11/06/20 10:25:46 General Comments: SPECIMEN: A. left knee bone and tissue [facility] IntraOp Departure from OR Entry 1 Integumentary Assessment Integumentary WDL Assessment WDL Transfer/Handoff Transfer to PACU Phase I Handoff Method Phone call Post-op Transport Bed (including Via specialty) Patient Transport DORETHAWMARGA ALICEA, Accompanied by ANGELA COBIAN Last Modified By: Jamshid Whitney RN 11/06/20 10:23:32 [facility] IntraOp Dressing and Packing Entry 1 Type Dressing Location OPERATIVE KNEE Wound Dressing Item Occlusive dressing, Skin Closure Glue Other Comments [employer] Last Modified By: Jamshid Whitney RN 11/06/20 11:15:24 [facility] IntraOp Fire Risk Assessment Entry 1 Fire Info Surgical Site or 0- No Incision Above the Xyphoid Open O2 Source 0- No (Mask or Cannula) Available Ignition 1- Yes (ESU, Laser, Light Source) Fire Risk 1 Assessment Score Fire Score Fire Risk Yes Assessment Complete Fire Risk Jamshid Whitney I procedure tech Verified By Fire Risk 11/06/20 10:20:00 Assessment Verified Date/Time Fire Risk Standard Fire Yes Safety Precautions Followed Last Modified By: Jamshid Whitney RN 11/06/20 10:25:55 [facility] IntraOp General Case Wrapper Sorter 1 Case Information OR OR 05 [facility] Case Level 1 Room Verified Yes Wound Class I - Clean Specialty Orthopedic Anesthesia Type General ASA Class 2 Diagnosis Preop Diagnosis osteoarthritis left knee Postop Same As Preop No Postop Diagnosis see MD postop notes Last Modified By: Jamshid Whitney RN 11/06/20 10:28:06 [facility] IntraOp Implant Log Entry 1 Entry 2 Entry 3 Type Implant (Synthetic) Implant (Synthetic) Implant (Synthetic) Implant Log Implant Type Bone Cement Hardware Hardware Tissue Implant Type Implant CEMENT BONE SMPLX PSN ASF MC 10MM VE L PATELLA CEMENTED Identification [id number] Description Implant Quantity 2 1 1 Implant Site left knee left knee left knee Implant Identification Model Number Implant Identification Serial Number Implant [id number] Identification Lot Number Implant Goltry:Goltry Eren:Eren Us Eren:Eren Identification Orthopaedics [employer] Name: Implant [id number] Identification Catalog Number Implant Size Implant Has an Yes Yes Yes Expiration Date Implant Expiration 10/18/21 06/03/25 08/26/28 Date Wasted Radioactive Material Time Implanted Tissue Implant Continue for Tissue Implant Documentation Tissue Identification Number Graft Prep Per [employer] Instructions: Tissue Preparation Method: Reconstitution Solution: Reconstitution Solution Lot Number Reconstitution Solution Expiration Date: Thawing Solution Thawing Solution Lot Number Thawing Solution Expiration Date Preparation Materials, Other Preparation Materials, Other Lot Number Preparation Materials, Other Expiration Date Tissue Prepared/Processed By [employer] Paperwork Completed Implant Type Comment Last Modified By: Jamshid Whitney RN Kesten, Robert I, RN Kesten, Robert I, RN 11/06/20 11:01:45 11/06/20 11:01:45 11/06/20 11:01:45 Entry 4 Entry 5 Type Implant (Synthetic) Implant (Synthetic) Implant Log Implant Type Hardware Hardware Tissue Implant Type Implant FEM CEMENTED NARROW SZ TIB STEM NATURAL L Identification [id number] Description Implant Quantity 1 1 Implant Site left knee left knee Implant Identification Model Number Implant Identification Serial Number Implant Identification Lot Number Implant Eren:Eren Us Eren:Eren Us Identification [employer] Name: Implant [id number] Identification Catalog Number Implant Size Implant Has an Yes Yes Expiration Date Implant Expiration 05/08/30 06/12/30 Date Wasted Radioactive Material Time Implanted Tissue Implant Continue for Tissue Implant Documentation Tissue Identification Number Graft Prep Per [employer] Instructions: Tissue Preparation Method: Reconstitution Solution: Reconstitution Solution Lot Number Reconstitution Solution Expiration Date: Thawing Solution Thawing Solution Lot Number Thawing Solution Expiration Date Preparation Materials, Other Preparation Materials, Other Lot Number Preparation Materials, Other Expiration Date Tissue Prepared/Processed By [employer] Paperwork Completed Implant Type Comment Last Modified By: Jamshid Whitney RN Kesten, Robert I, RN 11/06/20 11:01:45 11/06/20 11:01:45 [facility] IntraOp Intraoperative Assessment Entry 1 Handoff Method Bedside/Face to face, Online nursing summary Valid History / Yes Physical in Chart Preoperative Yes Checklist Reviewed/Evaluated Allergies Reviewed Yes Patient is Latex No Sensitive Isolation Not applicable Precautions Noted Level of WDL Consciousness (WDL = Alert, Oriented to Person, Place, and Time) Skin Assessment No Verified Present Upon IVs Arrival to OR Last Modified By: Jamshid Whitney RN 11/06/20 10:29:47 [facility] IntraOp Intraoperative Assessment Audit 11/06/20 10:29:47 Group Contract Analyst: [id number] Modifier: [id number] 1 <+> Patient is Latex Sensitive 1 <+> Isolation Precautions Noted 1 <*> Skin Assessment Verified Yes [facility] IntraOp Intraoperative Equipment Entry 1 Entry 2 Type Equipment Equipment Equipment Equipment Darleen Suction System Darleen Suction System ID Number [id number] Setting Intraop Monitoring Electrocardiogram Five lead placement Five lead placement (ECG) Electrode Placement Blood Pressure Non-Invasive BP Device Non-Invasive BP Device Source Blood Pressure Location Pulse Oximeter Probe Site Antiembolic Devices Antiembolic Devices Sequential compression Sequential compression device, knee high device, knee high, Antiembolic hose, knee high Antiembolic Device Right Right Location Antiembolic Device [id number] ID Number Antiembolic Device Setting Scopes Flexible Endoscopes Used Scope Serial Number/Identificatio n Number Photo/Video Documentation Photo Video Intraop Equipment SCD on non operative SCD on non operative Comment (right) leg and working (right) leg and working prior to induction prior to induction; SAMIA hose on right leg Last Modified By: Jamshid Whitney RN Kesten, Robert I, RN 11/06/20 10:32:09 11/06/20 10:32:09 [facility] IntraOp Intraoperative Equipment Audit 11/06/20 10:32:09 Group Contract Analyst: [id number] Modifier: [id number] 1 <*> Equipment Darleen Suction System 1 <*> ID Number [id number] <*> Electrocardiogram (ECG) Electrode Five lead placement Placement 1 <*> Antiembolic Devices Sequential compression device, knee high 1 <*> Antiembolic Device Location Right 1 <*> Blood Pressure Source Non-Invasive BP Device 1 <*> Intraop Equipment Comment SCD on non operative (right) leg and working prior to induction 1 <*> Type Equipment 1 <*> Antiembolic Device ID Number [id number] <+> 2 Equipment <+> 2 ID Number <+> 2 Electrocardiogram (ECG) Electrode Placement <+> 2 Antiembolic Devices <+> 2 Antiembolic Device Location <+> 2 Blood Pressure Source <+> 2 Intraop Equipment Comment <+> 2 Type <+> 2 Antiembolic Device ID Number [facility] IntraOp Medication Admin Entry 1 Entry 2 Entry 3 Medication/Irrigant Bacitracin 50,00units vancomycin 1Gm vial - hydrogen peroxide 16oz powder vial [id number] - [id number] Combo Med List Time Administered Route of Added to irrigation x 2 topical irrigation Administration Dose Dose Unit of Measure Volume Administered By DEAN ALVA KARTHIKEYAN, THARUN, KARTHIKEYAN, THARUN, MD-ORT -ORT -ORT Procedure Irrigation Irrigant Volume In Irrigant Volume Out Last Modified By: Jamshid Whitney RN Kesten, Robert I, RN Kesten, Robert I, RN 11/06/20 10:43:32 11/06/20 10:42:25 11/06/20 10:43:32 General Comments: MEDICATIONS 1. TXA 1g to anesthesia 2. TXA 2g to field 3. ropivacaine 0.5% injectable solution 24.6 mL + EPINEPHrine 0.25 mg + cloNIDine 40 mcg + Sodium Chloride to field [facility] IntraOp Medication Admin Audit 11/06/20 10:43:32 Group Contract Analyst: [id number] Modifier: [id number] <*> Medication/Irrigant Bacitracin 50,00units powder vial 1 <*> Medication/Irrigant Bacitracin 50,00units powder vial 1 <*> Medication/Irrigant Bacitracin 50,00units powder vial 1 <*> Route of Administration irrigation 1 <*> Route of Administration irrigation 3 <*> Medication/Irrigant hydrogen peroxide 16oz - [id number] 3 <*> Route of Administration 3 <*> Administered By DEAN ALVA MD-ORT 11/06/20 10:42:25 Group Contract Analyst: [id number] Modifier: [id number] 2 <*> Medication/Irrigant vancomycin 1Gm vial - [id number] 2 <*> Medication/Irrigant vancomycin 1Gm vial - [id number] 2 <*> Route of Administration 2 <*> Route of Administration 2 <*> Administered By DEAN ALVA MD-ORT 2 <*> Administered By DEAN ALVA MD-ORT [facility] IntraOp Patient Positioning Entry 1 Procedure Knee Total Joint Replacement(Left) Body Position Supine Left Arm Position Secured on padded arm board Right Arm Position Secured on padded arm board Left Leg Position Other Right Leg Position Uncrossed, parallel Feet Uncrossed Yes Pressure Points Yes Checked Positioning Devices Arm Board, Head Rest, Pad, Arm, Pad, Elbow, Safety Strap, Arm(s), Safety Strap, Chest, Foot Rest Device Position LATERAL POST, POPITEAL SUPPORT FOR FOOTREST Positioned By DEAN ALVA MD-ORT, MARGA ALBERTS APRN, COPIER OPERATOR, Jamshid Whitney I, JERZY, Kanwal Tolbert Rn Position Verified Positioning Yes Verified by Anesthesia Positioning Yes Verified by Surgeon Last Modified By: Jamshid Whitney RN 11/06/20 10:39:00 [facility] IntraOp Sign In Entry 1 Patient, Site, Yes Procedure Identified Surgical Consent Yes Confirmed Relevant Surgical Yes Documents Available Surgical Site Yes Marked by person performing procedure Anesthesia Machine Yes Check Completed Medication Checks Yes Completed Allergies Yes Airway Difficult Yes Airway/Aspiration Risk Difficult Yes Airway/Aspiration Intervention Equipment Available Blood Loss Risk Yes Blood Loss Yes Intervention Equipment Prepared and Ready Hypothermia Risk Yes Warming Measures Yes Taken Last Modified By: Jamshid Whitney RN 11/06/20 10:28:44 [facility] IntraOp Sign Out Entry 1 RN Confirmation Surgical Yes Procedure(s) Identified Instrument, Sponge Yes and Sharps Counts Correct/Documented Equipment Problems N/A Documented Specimen Labeled Yes Correctly Urinary Catheter N/A Documented in IView Yee Patient Yes Recovery Concerns Reviewed with Anesthesia Provider, Surgeon and RN Yee Patient Yes Management Concerns Reviewed with Anesthesia Provider, Surgeon and RN Safety Checklist Yes Elements Complete? RN Sign Out Jamshid Whitney RN Signature RN Sign Out 11/06/20 11:15:00 Signature Date/Time Plan of Care Outcome - Fire Risk OUTCOME STATEMENT: Goal met Patient is free from injury related to surgical fire Plan of Care Outcome - Pt Positioning OUTCOME STATEMENT: Goal met Absence of signs and symptoms of positioning injury. Plan of Care Outcome - Skin Prep OUTCOME STATEMENT: Goal met Intraoperative care is consistent with measures to prevent infection Plan of Care Outcome - Xray/Images OUTCOME STATEMENT: N/A Absence of observable signs or symptoms of radiation injury Plan of Care Outcome - Counts OUTCOME STATEMENT: Goal met Absence of signs and symptoms of injury related to extraneous objects Last Modified By: Jamshid Whitney RN 11/06/20 11:15:30 [facility] IntraOp Sign Out Audit 11/06/20 11:15:30 Group Contract Analyst: [id number] Modifier: [id number] <+> 1 RN Sign Out Signature Date/Time [facility] IntraOp Skin Prep Entry 1 Procedure Knee Total Joint Replacement(Left) Prescribed Yes Pre-Surgical Prep Completed Prep Area OPERATIVE THIGH TO TOES CIRCUMFRENTIALLY Intraop Prep Integumentary WDL Assessment WDL Prep Agents Alcohol, Chloraprep, DuraPrep, Chlorhexadine gluconate Prep by Jamshid Whitney RN Hair Removal Methods No hair removal performed Last Modified By: Jamshid Whitney RN 11/06/20 10:28:17 [facility] IntraOp Surgical Procedures Entry 1 Procedure Knee Total Joint Replacement Modifiers Left Additional LEFT TOTAL KNEE Procedure ARHTROPLASTY Description Primary Procedure Yes Primary Surgeon DEAN ALVA MD-ORT Start 11/06/20 10:20:00 Stop 11/06/20 11:31:00 Anesthesia Type General Specialty Orthopedic Wound Class I - Clean Last Modified By: Kanwal Tolbert Rn 11/06/20 12:08:12 [facility] IntraOp Surgical Procedures Audit 11/06/20 12:08:12 Group Contract Analyst: [id number] Modifier: [id number] <+> 1 Stop 11/06/20 11:15:33 Group Contract Analyst: [id number] Modifier: [id number] <+> 1 Start [facility] IntraOp Temp Regulation Devices Entry 1 Temp Regulation Temperature Forced Air Warming Regulation Device device, Warm blankets, Room temperature Temperature 89523 Regulation Device Serial/Unit Number Temperature Upper body Regulation Site Temperature Device 43 DEGREES CELCIUS Setting Temperature MARGA ALBERTS, Regulation Device SR. MANAGER, COPIER OPERATOR Applied by Last Modified By: Jamshid Whitney RN 11/06/20 10:29:13 [facility] IntraOP Time Out Entry 1 Procedure to be Knee Total Joint Performed Replacement(Left) Time Out Time Out Pause Time 11/06/20 10:20:00 All activity Yes suspended (unless life threatening emergency) Team Verbally Correct patient Confirms Information identity, Correct side and site are marked, Consent form is present and accurate, Agreement on the procedure to be done, Correct patient position, Relevant images/results properly labeled/appropriately displayed, Confirm antibiotics have been administered, Confirm the skin prep has dried, Confirm prosthesis/implant/devic e is present, Performed in location of procedure after prepped/draped Antibiotic Yes Prophylaxis Administered Or In Progress Within the Last 60 Minutes Beta Maritza N/A Administered Venous Yes Thromboembolism Prophylaxis Required Anticipated Critical Events Surgeon None expected Anesthesia Provider Patient specific concerns Nursing Assures Other Essential Imaging Yes Labeled and Displayed Last Modified By: Jamshid Whitney RN 11/06/20 10:21:02 [facility] IntraOp Tourniquet Entry 1 Type Pneumatic Serial/Unit Number [id number] Setting 300 mmHg Pheumatic Yes Tourniquet Checked Per Protocol Size 34 inches Placement Thigh, left upper Skin Protection - Yes Padded Under Cuff Applied By DEAN ALVA MD-ORT Removed By DEAN ALVA MD-ORMarycarmen Times Start Time 11/06/20 10:20:00 Stop Time 11/06/20 11:06:00 Last Modified By: Kanwal Tolbert Rn 11/06/20 12:09:31 [facility] IntraOp Tourniquet Audit 11/06/20 12:09:31 Group Contract Analyst: [id number] Modifier: [id number] 1 <*> Setting 300 mmHg 1 <*> Applied By DEAN ALVA MD-ORMarycarmen 1 <*> Removed By ARTIE, THARUN, MD-ORT 1 <*> Placement Thigh, left upper 1 <*> Type Pneumatic 1 <*> Serial/Unit Number [id number] 1 <*> Pheumatic Tourniquet Checked Per Yes Protocol 1 <*> Size 34 inches 1 <*> Skin Protection - Padded Under Cuff Yes 1 <*> Start Time 11/06/20 10:20:00 1 <*> Stop Time 11/06/20 11:06:00 Entry 2 was deleted. Higher numbered entries shifted one position to fill the gap. <-> 2 Stop Time 11/06/20 11:16:00 11/06/20 12:09:20 Group Contract Analyst: [id number] Modifier: [id number] <+> 1 Placement 11/06/20 12:09:01 Group Contract Analyst: [id number] Modifier: [id number] 1 <*> Stop Time 11/06/20 12:08:00 <+> 2 Stop Time 11/06/20 12:08:33 Group Contract Analyst: [id number] Modifier: [id number] <+> 1 Stop Time Case Comments <None> Finalized By: DORETHA ADEN Document Signatures Signed By: Kanwal Tolbert Rn 11/06/20 12:09 DORETHA ADEN 11/07/20 10:33 Unfinalized History Date/Time Username Reason for Unfinalizing Freetext Reason for Unfinalizing 11/07/20 10:31 WATSANDRADR Correct Billing documented in this encounter Plan of Treatment Not on file documented as of this encounter Visit Diagnoses Not on filedocumented in this encounter Care Teams Field Care Manager Relationship Specialty Start Date End Date Matheus Boggs MD [address] [place] [facility] [address] [place] [phone] PCP - General Family Medicine 09/05/22 documented as of this encounter
--- OUTSIDE RECORDS SUMMARY | 2025-03-02 10:56 | XMS_ITS | Encounter Summary ---
Author Organization [employer] ([place], [place], [place], [place]) Address [address] [place] [address] Care Team Providers Care Tree Specialist Name Role Phone Matheus Boggs MD Primary Care Provider + [phone] Encounter Details Date Type Department Care Team (Late st Contact Info) Description 11/06/2020 Transcribed Document [facility] [place] Family Medicine [facility] [place] [address] ProviderCristopher MD [address] [place] [address] Social History Tobacco Use Types Packs/Day [...] Conversion Note - Historical ProviderMD - 11/06/2020 2:27 PM CDT Treatment Intervention, PT Entered On: 11/07/2020 12:00 EDT Performed On: 11/07/2020 11:58 EDT by EDU BARNES, UMANG General Information, PT Visit Type, PT : Treatment Note Patient Orders : Order Date Order Ordering 11/06/2020 12:55 PT Evaluation and Treatment Ordered By: DEAN ALVA MD-ORT 11/06/2020 12:55 PT Treatment Instructions Ordered By: DEAN ALVA MD-ORMarycarmen 11/06/2020 12:55 PT Treatment Instructions Ordered By: DEAN ALVA MD-ORMarycarmen 11/06/2020 12:55 PT Treatment Instructions Ordered By: DEAN ALVA MD-ORMarycarmen 11/06/2020 12:55 PT Treatment Instructions Ordered By: DEAN ALVA MD-ORMarycarmen 11/06/2020 12:55 PT Treatment Instructions Ordered By: DEAN ALVA MD-ORMarycarmen 11/06/2020 14:27 PT Additional Treatment Ordered By: EDU BARNES, PT Active Diagnoses : 11/07/2020 12:00 Presence of unspecified artificial knee joint Therapy Diagnosis, PT : Aftercare following L TKA Admission Date : 11/06/2020 06:53 Co-treated by, PT : Occupational Therapist Personal Devices : Personal Devices Glasses Assistive Devices : Assistive Devices No Devices Recorded EDU BARNES PT - 11/07/2020 11:58 EDT General Status Patient Received Status : Up in chair Treatment Start Time : 11/07/2020 10:20 EDT Patient Left Status : Up in chair, RN/PCT informed, Communication board completed, All needs met and within reach, Other: SCd's, ICe, Bone foam RN/PCT Informed Comment : JERZY monae and pt consent Treatment End Time : 11/07/2020 10:49 EDT Treatment Time : 29 Minute(s) EDU BARNES PT - 11/07/2020 11:58 EDT Edu Topics Physical Therapy Education Grid Bed Mobility Training : Returns demonstration Gait Training : Returns demonstration Home Program/Exercises : Verbalizes understanding Role of Physical Therapy : Verbalizes understanding Safety : Verbalizes understanding Stair Training : Returns demonstration Therapeutic Exercises : Returns demonstration Transfer Training : Returns demonstration Use of Assistive Device : Returns demonstration EDU BARNES PT - 11/07/2020 11:58 EDT Indication Assesessment, PT Physical Therapy Indicated : EDU Coffman PT - 11/07/2020 11:58 EDT Plan of Care, PT PT Tx Plan/Goals Established w Patient : No EDU BARNES PT - 11/07/2020 11:58 EDT Sports Intern Goals Mobility/Bed Mobility LTG PT Grid Goal #1 Activity : Sit to stand Assist : Supervision or set-up Equipment : Walker, front wheel Date to Meet : 11/20/2020 EDT Goal Status : Goal met Date Met : 11/07/2020 EDT EDU BARNES, PT - 11/07/2020 11:58 EDT Ambulation LTG Grid Goal #1 Device : Walker, front wheel Distance : 100ft Assist : Supervision or set-up Date to Meet : 11/20/2020 EDT Goal Status : Goal met Date Met : 11/07/2020 EDT EDU BARNES, PT - 11/07/2020 11:58 EDT Stairs LTG Grid Goal #1 Device : Walker, front wheel Number of Steps : 1 Handrail(s) : No handrails Assist : Assist, minimal Date to Meet : 11/20/2020 EDT Goal Status : Goal met Date Met : 11/07/2020 EDT EDU BARNES, PT - 11/07/2020 11:58 EDT Treatment Note Subjective Comment : agreeable to PT treatment, states pain 3/10 at rest. Patient's Response to Treatment : Tolerates tx well with no acute complaints, demonstrates excellent stability during gait and transfer tasks with RWx. Tolerates therex and ROM activities well. Educated about progressing use of bone foam at home for improved extension ROM. Additional Objective Information : No Joint Online Program Coordinator present throughout L knee ROM 0-96 degrees SBA sit-stand with RWx SBA gait x 150ft with RWx CGA ascend/descend 1 step utilizing RWx. Pt performed 10 reps of seated heel slides, ankle pumps, quad sets, glut sets, LAQ, SAQ, hip abduction, supine heel slides, SLR. Assessment : Pt has currently met 3/3 goals [...] with a minimum of 1 hour TID. Plan for Treatment : discontinue EDU BARNES, PT - 11/07/2020 11:58 EDT Pain Assessment Pain Scaled Used : 0-10 Pain scale Pain Score Pre-Intervention : 3 Pain Score Post-Intervention. : 3 EDU BARNES, PT - 11/07/2020 11:58 EDT Image 1 - Images currently included in the form version of this document have not been included in the text rendition version of the form. [place] PT Charges PT Therap. Exercise 15 min : 1 Gait Training Each 15 Min : 1 EDU BARNES, PT - 11/07/2020 11:58 EDT Electronically signed by [facility], [facility] Conversion Programmer Engineering And Scientific Cerner at 11/06/2022 12:57 PM CDT documented in this encounter Plan of Treatment Not on file documented as of this encounter Visit Diagnoses Not on filedocumented in this encounter Care Teams Tree Specialist Relationship Specialty Start Date End Date Matheus Boggs MD [address] [facility] [address] [place] [phone] PCP - General Family Medicine 09/05/22 documented as of this encounter
--- OUTSIDE RECORDS SUMMARY | 2025-03-02 10:56 | XMS_ITS | Encounter Summary ---
Author Organization [employer] ([place], [place], [place], [place]) Address [address] [place] [address] Care Team Providers Care Steam Crane Operator Name Role Phone Matheus Boggs MD Primary Care Provider + [phone] Encounter Details Date Type Department Care Team (Late st Contact Info) Description 10/18/2020 Transcribed Document [facility] [place] [address] ProviderCristopher MD [address] [place] [address] Social History Tobacco Use Types Packs/Day [...] Cerner Conversion Note - Historical ProviderMD - 10/18/2020 9:40 AM CDT PAT Adult Entered On: 10/18/2020 9:43 EDT Performed On: 10/18/2020 9:40 EDT by Zac Murrieta Rn Pain Assessment Pain Scale Goal : 4 MARY ACEVEDO RN - 10/19/2020 12:12 EDT Height and Weight, Clinical Dosing Height Source : Measured Height Entry Format : [place] Height, Feet : 0 ft(Converted to: 0 cm, 0 Inch) Height, Inches : 60.5 Inch(Converted to: 5 ft 0 Inch, 153.67 cm) Clinical Height : 153.67 cm Weight Source : Standing scale Weight Entry Format : [place] Clinical Dosing Weight : 80.68 kg Weight, Pounds : 177.5 lb Body Surface Area (BSA) : 1.79 m2 Body Mass Index : 34.2 kg/m2 (HI) [place] Body Weight : 46 kg MARY ACEVEDO RN - 10/19/2020 12:12 EDT Health Histories Smoking Status : Never (less than 100 in lifetime; none in last 30 days) Smokeless Tobacco Status : Never Implant/Device Type, Workforce Manager and Model : knee replacement abdominal mesh Zac Murrieta Rn - 10/18/2020 9:40 EDT Social History (As Of: 11/06/2020 08:23:28 EDT) Tobacco: Never (less than 100 in lifetime) Smoking Status. Never Smokeless Tobacco Status. (Last Updated: 01/13/2020 10:07:19 EDT by FAROOQ SAVAGE RN) Alcohol: Alcohol Use History No. (Last Updated: 01/13/2020 10:07:24 EDT by FAROOQ SAVAGE, RN) Substance Abuse: Drug Use Hx: No. Use in Last 12 Months: No. (Last Updated: 01/13/2020 10:07:28 EDT by FAROOQ SAVAGE RN) Infectious Disease History Has the patient ever been tested for COVID-19? : Yes, Patient stated results Negative Where are the test results? : In EMR Results Date of COVID-19 test known? : Yes Date of COVID-19 Test : 11/03/2020 EDT YOVANNY ARELLANO - 11/06/2020 8:22 EDT Does patient have symptoms of COVID-19? 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 : No Date PreProcedure COVID-19 test known? : Yes Date of PreProcedure COVID-19 : 11/03/2020 EDT Has patient been isolated since the test : Yes Exposed to COVID19 symptoms since test? : No YOVANNY ARELLANO - 11/06/2020 8:22 EDT Anesthesia/Transfusion History Blood Transfusion Acceptable to Patient : Yes YOVANNY ARELLANO - 11/06/2020 8:22 EDT Family History of Anesthesia Reaction : No prior transfusion(s) Transfusion History : Prior anesthesia without reaction Family History of Anesthesia Reaction : None Zac Murrieta Rn - 10/18/2020 9:40 EDT Functional Assessment Functional ADL Evaluation Index EBN Bathing : Independent (2) Dressing : Independent (2) Toileting : Independent (2) Transferring Bed or Chair : Independent (2) Continence : Independent (2) Feeding : Independent (2) Zac Murrieta Rn - 10/18/2020 9:40 EDT ADL Index Score : 12 Zac Murrieta Rn - 10/18/2020 9:40 EDT Advance Directive Patient has Advance Directive *Q : No, patient refuses Advance Directive information Zac Murrieta Rn - 10/18/2020 9:40 EDT Spiritual/Cultural Needs Any Spiritual/Cultural Needs or Requests : Yes Spiritual/Cultural Needs Comment : 10/06 Congregation Preference : [employer] ([employer]) Spiritual/Cultural Needs Comment : 10/06 Zac Murrieta Rn - 10/18/2020 9:40 EDT [place] Suicide Severity Rating Scale (C-SSRS) CSSRS Past Month Wish to be : No CSSRS Past Month Suicidal Thoughts : No CSSRS Lifetime Suicide Behavior : No Suicide Severity Rating Score : 0 Suicide Severity Rating : No Additional Care Required at this time Zac Murrieta Rn - 10/18/2020 9:40 EDT Psychosocial History Do You Have a History of the Following? : Patient denies history YOVANNY ARELLANO - 11/06/2020 8:22 EDT Currently in Unsafe Situation : No Zac Murrieta Rn - 10/18/2020 9:40 EDT Education Topics, Periop Preadmission Responsible Adult Contact Information : Bibiana White, daughter, MARY ACEVEDO RN - 10/19/2020 12:12 EDT General Info Arrived From : Home Objects to Sharing Info w Family : No MARY ACEVEDO RN - 10/19/2020 12:12 EDT Preferred Name : Mary Mode of Arrival on Unit : Ambulatory Legal Guardian : Daughter Support Person/Patient Carroting Machine Operator : Yes Support Person/Pt Rep Name : Bibiana White - dtr Support Person/Pt Rep Contact Information : [phone] Bibiana dEmond Family/Rep/Phys Notified of Admit : No Zac Murrieta Rn - 10/18/2020 9:40 EDT Emergency Contact #1 : `Bibiana Christopher Emergency Contact #1 Phone Number : [phone]` Emergency Contact #1 Relationship : daughter` MARY ACEVEDO RN - 10/19/2020 12:12 EDT Emergency Contact #2 : ` Emergency Contact #2 Phone Number : ` Emergency Contact #2 Relationship : ` Information Obtained From : Patient Primary Language : Iranian Preferred Communication Mode : Verbal Communication Barrier : None Senior Applications Engineer Needed : No Zac Murrieta Rn - 10/18/2020 9:40 EDT Mohan Scale Mohan Sensory Perception : No impairment Mohan Moisture : Occasionally moist Mohan Activity : Walks occasionally Mohan Mobility : Slightly limited Mohan Nutrition : Adequate Mohan Friction and Shear : No apparent problem Mohan Score : 19 Zac Murrieta Rn - 10/18/2020 9:40 EDT Sleep Apnea Risk Assmt BMI Greater Than 35 kg/m2 : No Neck Circumference Greater Than 40 cm : No STOP-BANG Sleep Apnea Risk Level Score : 3 MARY ACEVEDO RN - 10/19/2020 12:33 EDT Hx of Obstructive Sleep Apnea Diagnosis : No Snore Loudly : No Tired, Fatigued, or Sleepy During Day : Yes Observed Stopping Breathing During Sleep : No Have/Are Being Treated for Hypertension : Yes Age over 50 Years Old : Yes Gender Male : No Zac Murrieta Rn - 10/18/2020 9:40 EDT documented in this encounter Plan of Treatment Not on file documented as of this encounter Visit Diagnoses Not on filedocumented in this encounter Care Teams Steam Crane Operator Relationship Specialty Start Date End Date Warren, Matheus T, MD [address] [place] [facility] [address] [place] [phone] PCP - General Family Medicine 09/05/22 documented as of this encounter
--- OUTSIDE RECORDS SUMMARY | 2025-03-02 10:56 | XMS_ITS | Encounter Summary ---
Author Organization [employer] ([place], [place], [place], [place]) Address [address] [place] [address] Care Team Providers Care Accreditation Coordinator Name Role Phone Matheus Boggs MD Primary Care Provider + [phone] Encounter Details Date Type Department Care Team (Late st Contact Info) Description 01/31/2020 Transcribed Document [facility] [place] [facility] [place] [address] ProviderCristopher MD [address] [place] [address] Social History Tobacco Use Types Packs/Day [...] Verbal explanation Jaida Larios Rn - 01/31/2020 15:30 EDT documented in this encounter Plan of Treatment Not on file documented as of this encounter Visit Diagnoses Not on filedocumented in this encounter Care Teams Accreditation Coordinator Relationship Specialty Start Date End Date Matheus Boggs MD [address] [place] [address] [place] [phone] PCP - General Family Medicine 09/05/22 documented as of this encounter
--- OUTSIDE RECORDS SUMMARY | 2025-03-02 10:56 | XMS_ITS | Encounter Summary ---
Author Organization [employer] ([place], [place], [place], [place]) Address [address] [place] [address] Care Team Providers Care Library Cataloging Technician Name Role Phone Matheus Boggs MD Primary Care Provider + [phone] Encounter Details Date Type Department Care Team (Late st Contact Info) Description 11/06/2020 Transcribed Document [facility] [place] Family Medicine [facility] [place] [address] ProviderCristopher MD [address] [place] [address] Social History Tobacco Use Types Packs/Day [...] Cristopher ProviderMD - 11/06/2020 10:20 AM CDT [facility] Main OR Preop Summary Primary Physician: DEAN ALVA MD-ORT Finalized Date/Time: 11/06/20 14:39:17 Pt. Name: MARY WALKER D.O.B./Sex: 1945 Female Med Rec #: [id number] Physician: DEAN ALVA MD-ORT Financial #: [id number] Pt. Type: O Room/Bed: 637/1 Admit/Disch: 11/06/20 06:53:00 - Institution: [facility] PreOp Case Times Entry 1 In Preop 11/06/20 07:39:00 Ready for Holding n/a Room Patient Ready for 11/06/20 09:13:00 Surgery Patient Out of Preop 11/06/20 09:46:00 Patient Out of n/a Holding Room Last Modified By: PARIS LOMBARDI RN 11/06/20 14:39:12 [facility] PreOp Case Times Audit 11/06/20 14:39:12 Electronic Health Records Specialist: MICAELA Modifier: MARIA ANTONIA <+> 1 Patient Out of Preop Finalized By: PARIS LOMBARDI RN Document Signatures Signed By: PARIS LOMBARDI RN 11/06/20 14:39 documented in this encounter Plan of Treatment Not on file documented as of this encounter Visit Diagnoses Not on filedocumented in this encounter Care Teams Library Cataloging Technician Relationship Specialty Start Date End Date Matheus Boggs MD [address] [place] [facility] [address] [place] [phone] PCP - General Family Medicine 09/05/22 documented as of this encounter
--- OUTSIDE RECORDS SUMMARY | 2025-03-02 10:56 | XMS_ITS | Encounter Summary ---
Author Organization [employer] ([place], [place], [place], [place]) Address [address] [place] [address] Care Team Providers Care An/Ssn 2 4 Operator Name Role Phone Matheus Boggs MD Primary Care Provider + [phone] Encounter Details Date Type Department Care Team (Late st Contact Info) Description 11/06/2020 Transcribed Document [facility] [place] [address] ProviderCristopher MD [address] [place] [address] Social History Tobacco Use Types Packs/Day [...] Conversion Note - Cristopher ProviderMD - 11/06/2020 2:44 PM CDT Treatment Intervention, OT Entered On: 11/07/2020 11:49 EDT Performed On: 11/07/2020 10:25 EDT by HANNAH PEREZ, OTR/L General Information, OT Visit Type, OT : Treatment Note Patient Orders : Order Date Order Ordering 11/06/2020 12:55 OT Evaluation and Treatment Ordered By: DEAN ALVA MD-ORT 11/06/2020 12:55 OT Treatment Instructions Ordered By: DEAN ALVA MD-ORT 11/06/2020 14:44 OT Additional Treatment Ordered By: Active Diagnoses : 11/07/2020 12:00 Presence of unspecified artificial knee joint Therapy Diagnosis, OT : Decreased functional mobility, decreased ADL performance. Admission Date : 11/06/2020 06:53 Co-treated by, OT : Physical Therapist Personal Devices : Personal Devices No Devices Recorded Assistive Devices : Assistive Devices No Devices Recorded HANNAH PEREZ OTR/Marianela - 11/07/2020 11:41 EDT General Status Patient Received Status : Other: Up in bathroom Treatment Start Time : 11/07/2020 10:04 EDT Patient Left Status : Up in chair, RN/PCT informed, All needs met and within reach Treatment End Time : 11/07/2020 10:27 EDT Treatment Time : 23 Minute(s) HANNAH PEREZ OTR/L - 11/07/2020 11:41 EDT Self Care/Home Management, OT Upper Body Dressing Assist Level, OT : Supervision or set-up Lower Body Dressing Assist Level, OT : Supervision or set-up HANNAH PEREZ OTR/Marianela - 11/07/2020 11:41 EDT Functional Mobility Mobility Grid Sit to Stand : Supervision/set-up Bed to Chair : Supervision/set-up Stand to Sit : Supervision/set-up HANNAH PEREZ OTR/Marianela - 11/07/2020 11:41 EDT Plan of Care, OT OT Tx Plan/Goals Established w Patient : Yes HANNAH PEREZ OTR/L - 11/07/2020 11:41 EDT Tavern Keeper Goals, OT Bathing LTG Grid Goal #1 Activity : Bathing Assist : Independent, modified Date to Meet : 11/20/2020 EDT Goal Status : Initial goal HANNAH PEREZ OTR/Marianela - 11/07/2020 12:31 EDT Dressing, Lower Body LTG Grid Goal #1 Activity : Dressing, Lower Body Assist : Independent, modified Date to Meet : 11/20/2020 EDT Goal Status : Initial goal HANNAH PEREZ OTR/Marianela - 11/07/2020 12:31 EDT Toileting LTG Grid Goal #1 Activity : Toileting Assist : Independent, modified Date to Meet : 11/20/2020 EDT Goal Status : Initial goal HANNAH PEREZ OTR/L - 11/07/2020 12:31 EDT Toilet Transfer LTG Grid Goal #1 Activity : Toilet Transfer, Ambulatory Assist : Independent, modified Date to Meet : 11/20/2020 EDT Goal Status : Initial goal HANNAH PEREZ OTR/L - 11/07/2020 12:31 EDT Tub/Shower Transfer LTG Grid Goal #1 Activity : Tub/Shower Transfer, Ambulatory Assist : Independent, modified Date to Meet : 11/20/2020 EDT Goal Status : Initial goal HANNAH PEREZ OTR/L - 11/07/2020 12:31 EDT Treatment Note Subjective Comment : Pt reports that her pain is tolerable. Patient's Response to Treatment : Pt tolerated treatment well. Additional Objective Information : Pt was found up in bathroom. Pt was SBA to ambulate from bathroom. Pt was SUA for UB and LB dressing. Pt was educated on using AE and stated she has all equiptment she needs at home. Pt was SBA for ambulation in hallway. Pt was left in gym with PT. Assessment : Pt progressing towards goals. Plan for Treatment : Cont OT POC. HANNAH PEREZ OTR/L - 11/07/2020 11:41 EDT Pain Assessment Pain Score Pre-Intervention : 4 HANNAH PEREZ OTR/L - 11/07/2020 12:31 EDT Image 1 - Images currently included in the form version of this document have not been included in the text rendition version of the form. [facility] OT Charges OT Selfcare/Hm Mgmt Ea 15 Min : 1 OT Ther Activities Ea 15 Min : 1 HANNAH PEREZ OTR/L - 11/07/2020 11:41 EDT documented in this encounter Plan of Treatment Not on file documented as of this encounter Visit Diagnoses Not on filedocumented in this encounter Care Teams An/Ssn 2 4 Operator Relationship Specialty Start Date End Date Matheus Boggs MD [address] [place] [facility] [address] [place] [phone] PCP - General Family Medicine 09/05/22 documented as of this encounter
--- OUTSIDE RECORDS SUMMARY | 2025-03-02 10:56 | XMS_ITS | Encounter Summary ---
Author Organization [facility] ([place], [place], [place], [place]) Address [address] [place] [address] Care Team Providers Care Teller Name Role Phone Matheus Boggs MD Primary Care Provider + [phone] Encounter Details Date Type Department Care Team (Late st Contact Info) Description 01/31/2020 Transcribed Document [facility] [place] Family [place] [facility] [place] [address] ProviderCristopher MD [address] [place] [address] Social History Tobacco Use Types Packs/Day [...] Cristopher ProviderMD - 01/31/2020 10:35 AM CDT [facility] Main OR Preop Summary Primary Physician: DEAN ALVA MD-ORT Finalized Date/Time: 01/31/20 12:01:49 Pt. Name: MARY WALKER/Sex: 1945 Female Med Rec #: [id number] Physician: DEAN ALVA MD-ORT Financial #: [id number] Pt. Type: O Room/Bed: /9 Admit/Disch: 01/31/20 06:33:00 - Institution: [facility] PreOp Case Times Entry 1 In Preop 01/31/20 07:02:00 Ready for Holding n/a Room Patient Ready for 01/31/20 08:41:00 Surgery Patient Out of Preop 01/31/20 10:00:00 Patient Out of n/a Holding Room Last Modified By: Tamar Casiano, Nurse Farm Tractor Operator 01/31/20 12:01:45 [facility] PreOp Case Times Audit 01/31/20 12:01:45 Aquaculture Worker: ANTONIO Modifier: [id number] <+> 1 Patient Out of Preop 01/31/20 08:41:48 Aquaculture Worker: [email or web address] Modifier: [email or web address] <+> 1 Patient Ready for Surgery Finalized By: Tamar Casiano, Nurse Mimeographer Signatures Signed By: Tamar Casiano Nurse 01/31/20 12:01 documented in this encounter Plan of Treatment Not on file documented as of this encounter Visit Diagnoses Not on filedocumented in this encounter Care Teams Teller Relationship Specialty Start Date End Date Matheus Boggs MD [address] [facility] [address] [place] [phone] PCP - General Family Medicine 09/05/22 documented as of this encounter
--- OUTSIDE RECORDS SUMMARY | 2025-03-02 10:56 | XMS_ITS | Encounter Summary ---
Author Organization [employer] ([place], [place], [place], [place]) Address [address] [place] [address] Care Team Providers Care Poly Operator Name Role Phone Matheus Boggs MD Primary Care Provider + [phone] Encounter Details Date Type Department Care Team (Late st Contact Info) Description 11/06/2020 Transcribed Document [facility] [place] [address] ProviderCristopher MD [address] [place] [address] Social History Tobacco Use Types Packs/Day [...] ProviderMD - 11/06/2020 12:55 PM CDT Evaluation, Physical Therapy Entered On: 11/06/2020 14:27 EDT Performed On: 11/06/2020 14:22 EDT by EDU BARNES, PT General Information, PT Visit Type, PT : Initial evaluation Patient Orders : Order Date Order Ordering 11/06/2020 12:55 PT Evaluation and Treatment Ordered By: DEAN ALVA MD-ORT 11/06/2020 12:55 PT Treatment Instructions Ordered By: DEAN ALVA MD-ORT 11/06/2020 12:55 PT Treatment Instructions Ordered By: DEAN ALVA MD-ORT 11/06/2020 12:55 PT Treatment Instructions Ordered By: DEAN ALVA MD-ORT 11/06/2020 12:55 PT Treatment Instructions Ordered By: DEAN ALVA MD-ORT 11/06/2020 12:55 PT Treatment Instructions Ordered By: DEAN ALVA MD-ORT Active Diagnoses : No Qualifying Diagnoses Therapy Diagnosis, PT : Aftercare following L TKA Onset of Problem, PT : 11/06/2020 EDT Admission Date : 11/06/2020 06:53 Co-treated by, PT : Occupational Therapist Personal Devices : Personal Devices No Devices Recorded Assistive Devices : Assistive Devices No Devices Recorded EDU BARNES, PT - 11/06/2020 14:22 EDT General Status Patient Received Status : Supine in bed Treatment Start Time : 11/06/2020 13:39 EDT Patient Left Status : Up in chair, RN/PCT informed, Family/Visitors at bedside, Communication board completed, All needs met and within reach, Other: SCd's, ICe, bone foam RN/PCT Informed Comment : Michelle rosa and tp consent Treatment End Time : 11/06/2020 13:51 EDT Treatment Time : 12 Minute(s) EDU BARNES, PT - 11/06/2020 14:22 EDT History and Environment Living Situation, Therapy : Home Patient Lives With : Alone Persons Assisting Patient at Home : Child/Children Professional Skilled Services : None Persons Providing Information : Patient, Child/Children Home Equipment Therapy, PT : Commode, Walker Commode : Commode, bedside Walker : Walker, front wheel Home Setup : One story Stairs : Yes Stair Location(s) : Outside Outside Stairs, Number of Steps : 1 Railing Outside : No EDU BARNES, PT - 11/06/2020 14:22 EDT Prior Level of Function PT GRID Prior LOF Ambulation, Household : Independent Prior LOF Ambulation, Community : Independent Prior LOF Bed Mobility : Independent Prior LOF Toileting : Independent Prior LOF Transfer : Independent EDU BARNES, PT - 11/06/2020 14:22 EDT Upper Extremity Right UE Active ROM : WFL Right UE Strength : WFL Left UE Active ROM : WFL Left UE Strength : WFL EDU BARNES, PT - 11/06/2020 14:22 EDT Lower Extremity RLE Active ROM : WFL Right LE Strength : WFL LLE Active ROM : Impaired Left LE Strength : Impaired EDU BARNES, PT - 11/06/2020 14:22 EDT Left Lower Extremity Range of Motion Knee Flexion (0-140) Knee Extension (0-0) Active : 94 0 EDU BARNES, PT - 11/06/2020 14:22 EDT EDU BARNES, PT - 11/06/2020 14:22 EDT Functional Mobility Mobility Grid Supine to Sit : Rehab Minimal assistance Sit to Stand : Rehab Minimal assistance Bed to Chair : Rehab Moderate assistance Stand to Sit : Rehab Minimal assistance EDU BARNES PT - 11/06/2020 14:22 EDT Sit to Stand Device : Belt, gait, Walker, front wheel Bed to Chair Device : Belt, gait, Walker, front wheel EDU BARNES PT - 11/06/2020 14:22 EDT Gait Training/Assessment, PT Weight Bearing Status : As tolerated Gait Assistance Level : Assist, moderate Walking Distance : 4ft to recliner at bedside, mod verbal cues for correct sequencing, intermittent LLE buckling, difficulty advancing LLE. Ambulatory Devices : Gait belt, Walker, front wheel EDU BARNES, PT - 11/06/2020 14:22 EDT Neuromuscular Reeducation, PT Balance Comment : SBA static sitting, Mirza static standing with RWx EDU BARNES PT - 11/06/2020 14:22 EDT Neurological/Sensory Overall Sensory Response : Intact EDU BARNES PT - 11/06/2020 14:22 EDT Activity Tolerance, PT Activity Comment : Limited by numbness and weakness in LLE EDU BARNES PT - 11/06/2020 14:22 EDT Cognition Assessment, PT Orientation : Oriented x 4 Attention Assessment : Present EDU BARNES PT - 11/06/2020 14:22 EDT Edu Topics Physical Therapy Education Grid Bed Mobility Training : Needs reinforcement Gait Training : Needs reinforcement Role of Physical Therapy : Verbalizes understanding Safety : Verbalizes understanding Transfer Training : Needs reinforcement Use of Assistive Device : Needs reinforcement EDU BARNES, PT - 11/06/2020 14:22 EDT Indication Assesessment, PT Physical Therapy Indicated : Yes PT Problem List : Impaired, endurance tolerance, Impaired, gait, Impaired, joint mobility, Impaired, stair mobility, Impaired, standing balance, Impaired, strength, Impaired, transfers Potential Barriers To Therapy : None evident Rehabilitation Potential : Good EDU BARNES, PT - 11/06/2020 14:22 EDT Plan of Care, PT PT Tx Plan/Goals Established w Patient : Yes PT Frequency Rehab : Daily, twice (bid) PT Duration Rehab : Fourteen days PT Treatments Planned : Gait training, Stair training, Therapeutic exercises, Transfer training EDU BARNES, PT - 11/06/2020 14:22 EDT Labor Contract Analyst Goals Mobility/Bed Mobility LTG PT Grid Goal #1 Activity : Sit to stand Assist : Supervision or set-up Equipment : Walker, front wheel Date to Meet : 11/20/2020 EDT Goal Status : Intial Goal EDU BARNES, PT - 11/06/2020 14:22 EDT Ambulation LTG Grid Goal #1 Device : Walker, front wheel Distance : 100ft Assist : Supervision or set-up Date to Meet : 11/20/2020 EDT Goal Status : Intial Goal EDU BARNES, PT - 11/06/2020 14:22 EDT Stairs LTG Grid Goal #1 Device : Walker, front wheel Number of Steps : 1 Handrail(s) : No handrails Assist : Assist, minimal Date to Meet : 11/20/2020 EDT Goal Status : Intial Goal EDU BARNES, PT - 11/06/2020 14:22 EDT Treatment Note Subjective Comment : Pt agreeable to PT eval, denies pain at rest. Patient's Response to Treatment : No acute complaints but demonstrates difficulty initiating steps with LLE as well as LLE buckling during attempts at gait with RWx. Educated about progressive use of bone foam and to call for assistance with all mobility tasks while admitted. Additional Objective Information : LLE ROM 0-94 degrees Mirza sit-stand with RWx ModA gait x 4ft to recliner with RWx Assessment : Pt presents with deficits in stability, ROM, and functional mobility s/p L TKA. Continue PT to minimize fall risk and progress towards TKA goals. Plan for Treatment : BID EDU BARNES, PT - 11/06/2020 14:22 EDT Pain Assessment Pain Scaled Used : 0-10 Pain scale Pain Score Pre-Intervention : 0 Pain Score Post-Intervention. : 0 EDU BARNES, PT - 11/06/2020 14:22 EDT Image 1 - Images currently included in the form version of this document have not been included in the text rendition version of the form. Anticipated Discharge Needs, OT/PT Anticipated Discharge to : Home, with home health Anticipated Home Equipment : None Recommend Continued Therapy at Discharge : Yes EDU BARNES, PT - 11/06/2020 14:[address] [facility] Charges PT Eval Low Complexity : 1 EDU BARNES PT - 11/06/2020 14:22 EDT documented in this encounter Plan of Treatment Not on file documented as of this encounter Visit Diagnoses Not on filedocumented in this encounter Care Teams Poly Operator Relationship Specialty Start Date End Date Matheus Boggs MD [address] [facility] [address] [place] [phone] PCP - General Family Medicine 09/05/22 documented as of this encounter
--- OUTSIDE RECORDS SUMMARY | 2025-03-02 10:56 | XMS_ITS | Clinical Summary ---
Author Organization [facility] Address [address] [place] [address] Care Team Providers Care Door Frame Builder Name Role Phone Matheus Boggs MD Primary Care Provider [phone] Mitchell Oliva MD Unavailable [phone] Allergies Active Allergy Reactions Criticality Noted Date Comments Aspirin Rash 05/05/2008 Cotrim Diarrhea 09/14/2014 Codeine 05/05/2008 hyper Nsaids (Non-Steroidal Anti-Inflammatory Drug) Rash 05/05/2008 Other 05/05/2008 Sleeping pills have opposite effect- stays awake Cat gut Penicillins Rash 05/05/2008 Oxycodone-Aspirin 05/05/2008 Skin red and hot Medications SINGULAIR 10 mg PO Tab Take by mouth every evening. Active LEVOXYL PO Take 100 mcg by mouth every morning. Active Meclizine 25 mg PO Cap Take by mouth daily. Active RANEXA 500 mg PO Tb12 Take 500 mg by mouth 2 times daily. Active IMODIUM PO Take by mouth. As needed Active albuterol (PROAIR HFA) 90 mcg/Actuation IN HFAA Take by inhalation as needed. Active meclizine (ANTIVERT) 25 mg PO tablet TAKE 1 TO 3 TABLETS BY MOUTH DAILY 90 Tab 3 0 Active oxazepam (SERAX) 10 mg PO capsule Take 1 Cap by mouth every morning. 30 Cap 5 1 Active valsartan-hydro chlorothiazide (DIOVAN-HCT) 160-12.5 mg Tablet Take 1 Tab by mouth every morning. Active fluticasone (FLONASE) 50 mcg/actuation nasal spray [place] 2 Sprays into nose 2 times daily. Active beclomethasone (QVAR) 40 mcg/actuation Aerosol Take 2 Puffs by inhalation 2 times daily. Active telmisartan (MICARDIS) 80 mg Tablet Take 80 mg by mouth daily. Active SODIUM CHLORIDE/POTASS IUM/CALI (SUSTAIN PO) Take by mouth. Ac tive ACETAMINOPHEN (TYLENOL 8 HOUR PO) Take by mouth. Activ e Active Problems Problem Noted Date Diagnosed Date Primary osteoarthritis of left knee 08/24/2015 Hypertension Hypercholesteremia Hypothyroidism IBS (irritable bowel syndrome) Asthma Seasonal allergic rhinitis Family History Medical History Relation Name Comments Heart Problems Brother Heart Problems Maternal Uncle Heart Problems Paternal Aunt Heart Problems Sister Anesthesia Complications Neg Hx Relation Name Status Comments Brother Maternal Uncle Paternal Aunt Sister Social History Tobacco Use Types Packs/Day Years Used Date Smoking Tobacco: Never Alcohol Use Standard Drinks/Week Comments No 0 (1 standard drink = 0.6 oz pur e alcohol) Comments No Sex and Gender Information Value Date Recorded Sex Assigned at Not on file Legal Sex Female 5:04 PM EST Gender Identity Not on file Sexual Orientation Not on file Last Filed Vital Signs Vital Sign Reading Time Taken Comments Blood Pressure 155/73 09/16/2014 2:12 PM EST Pulse 63 09/16/2014 2:12 PM EST Temperature 36.1 C (97 F) 09/16/2014 12:45 PM EST Respiratory Rate 16 09/16/2014 2:12 PM EST Oxygen Saturation 97% 09/16/2014 2:12 PM EST Inhaled Oxygen Concentration - - Weight 86.2 kg (190 lb) 08/24/2015 10:04 AM EST Height 154.9 cm (5' 1 ) 08/24/2015 10:04 AM EST Body Mass Index 35.9 08/24/2015 10:04 AM EST Plan of Treatment Health Maintenance Due Date Last Done Comments Lipid Screening 1963 Tetanus Vaccination (Every 1 0 Years) 1963 Hepatitis C Virus (HCV) Screening 1966 Pneumococcal Vaccine: 50+ Ye ars (1 of 1 - PCV) 1995 Zoster-RZV(Shingrix) (1 of 2) 1995 Fall Risk Assessment 2010 Osteoporosis Screening 2010 09/29/2000 RSV Vaccines (1 - 1-dose 75+ series) 2020 COVID-19 Vaccine ( - 2023-2 5 season) 2024 Advance Care Planning 07/21/2024 Depression Screening 07/21/2024 Influenza Vaccination (#1) 2025 Breast Cancer Screening Discontinued 09/10/19 11, 08/28/2009, 08/23/2008, Additional history exists Medical Devices Implanted Type Area Deputy Bailiff Device Identifier Shelf Expiration Date Model / Serial / Lot Tissue Matrix [id number] Implanted:Qty: 1 on 09/16/2014 by Mitchell Oliva MD at [facility] Abdomen * [employer] 05/20/2016 [id number] / / [id number] Procedures Procedure Name Priority Date/Time Associated Diagnosis Comments MAMM-SCREENING DIRECT DIGITAL Routine 09/10/2010 10:11 AM EST Other screening mammogram NM-DXA SCAN AXIAL SKELETON Routine 09/29/2000 9:30 AM EST from Last 3 Months or Most Recently Relevant to Health Maintenance Results * MAMM-SCREENING DIRECT DIGITAL (09/10/2010 10:11 AM EST) Anatomical Region Laterality Modality Bilateral Mammography 09/11/2010 8:58 AM EST Impressions 09/11/2010 10:50 AM EST NEGATIVE MAMMOGRAM. RECOMMENDATION: ROUTINE MAMMOGRAPHIC FOLLOW-UP. THE STUDY WAS DOUBLE READ WITH IMAGECHECKER. /cg Narrative 09/11/2010 10:50 AM EST SCREENING DIGITAL MAMMOGRAM WITH IMAGECHECKER: Breast parenchyma is of average density. There are some benign-appearing calcifications bilaterally. Appearance similar to prior studies most recent 08/28/09. Procedure Note Terry Buckner MD - 09/11/2010 SCREENING DIGITAL MAMMOGRAM WITH IMAGECHECKER: Breast parenchyma is of average density. There are some benign-appearingcalcifications bilaterally. Appearance similar to prior studies mostrecent 08/28/09. IMPRESSION: NEGATIVE MAMMOGRAM. RECOMMENDATION: ROUTINE MAMMOGRAPHIC FOLLOW-UP. THE STUDY WAS DOUBLE READ WITH IMAGECHECKER. /cg us Devin Mendoza MD IMG MAMMO ORDERABLES Final R esult * NM-DXA SCAN AXIAL SKELETON (09/29/2000 9:30 AM EST) Narrative [facility] EXTERNAL RAD - 09/29/2000 10:13 PM EST --- ADDENDUM: 0 --- Dictated: 09/29/00 1026 QDR BONE DENSITOMETRY (DEXA): 09/29/00 COMPARISON STUDY: None. CLINICAL HISTORY: Estrogen deficiency. Synthroid use. Please see the enclosed data sheets. The T-value compares the patient's bone mineral density with the peak bone mass of young normal patients. According to the WHO (World Health Organization) criteria, patients with T- values between -1 and -2.5 are osteopenic. Patients with T-values less than -2.5 are osteoporotic. The Z-value compares the patient's bone mineral density with age and sex-matched peers. AP low-resolution digital radiograph of the lumbar spine demonstrates osteophytes which may falsely elevate bone mineral density. Total bone mineral density of L1 through L4 is 0.954 grams per centimeter squared. T-value is -0.84. Z-value is +0.25 (103% of mean based on age and sex). AP low-resolution digital radiograph of the left hip is normal. Total bone mineral density of left hip is 1.111 grams per centimeter squared. T-value is +1.39. Z-value is +2.07 (129% of mean based on age and sex). IMPRESSION: 1. NORMAL BONE MINERAL DENSITY OF LUMBAR SPINE AND LEFT HIP. DH Procedure Note 12/15/2007 --- ADDENDUM: 0 --- Dictated: 09/29/00 1026 QDR BONE DENSITOMETRY (DEXA): 09/29/00 COMPARISON STUDY: None. CLINICAL HISTORY: Estrogen deficiency. Synthroid use. Please see the enclosed data sheets. The T-value compares the patient's bone mineral density with the peak bonemass of young normal patients. According to the WHO (World Health Organization) criteria, patients withT-values between -1 and -2.5 are osteopenic. Patients with T-values less than -2.5 are osteoporotic. The Z-value compares the patient's bone mineral density with age andsex-matched peers. AP low-resolution digital radiograph of the lumbar spine demonstratesosteophytes which may falsely elevate bone mineral density. Total bone mineral density of L1 through L4 is0.954 grams per centimeter squared. T-value is -0.84. Z-value is +0.25 (103% of mean based on age and sex). AP low-resolution digital radiograph of the left hip is normal. Totalbone mineral density of left hip is 1.111 grams per centimeter squared. T-value is +1.39. Z-value is +2.07(129% of mean based on age and sex). IMPRESSION: 1. NORMAL BONE MINERAL DENSITY OF LUMBAR SPINE AND LEFT HIP. DH us Veto Cuevas MD IMG HIST CERNER PROCEDURE S Final Result [facility] EXTERNAL RAD from Last 3 Months or Most Recently Relevant to Health Maintenance Insurance MEDICARE Member Subscriber Plan / Payer (Ef fective for All Dates) Name:Eulalia Walker Member ID:[id number] Relation to Subscriber:Self Name:Eulalia Walker Subscriber ID:[id number] Payer ID:[id number] Group ID:Not on file Type:Medicare Address[place] [facility] [place] [address] [facility] [address] [facility] [place] [address] [facility] MEDICARE [place] [id number] [facility] Care Teams Door Frame Builder Relationship Specialty Start Date End Date Matheus Boggs MD [address] [place] [address] [place] [address] PCP - General Family Medicine 09/14/14 Mitchell Oliva MD [facility] [place] [address] [place] [address] General Surgery 07/28/22
--- OUTSIDE RECORDS SUMMARY | 2025-03-02 10:56 | XMS_ITS | Encounter Summary ---
Author Organization [employer] ([place], [place], [place], [place]) Address [address] [place] [address] Care Team Providers Care Smoking Pipe Coater Name Role Phone Matehus Boggs MD Primary Care Provider + [phone] Encounter Details Date Type Department Care Team (Late st Contact Info) Description 11/06/2020 Transcribed Document [facility] [place] [address] ProviderCristopher MD [address] [place] [address] Social History Tobacco Use Types Packs/Day [...] Conversion Note - Cristopher ProviderMD - 11/06/2020 8:58 AM CDT Orthopedic Nurse Navigator Entered On: 11/06/2020 9:02 EDT Performed On: 11/06/2020 8:58 EDT by Tere Carrasco RN-Navigator Orthopedic Nurse Navigator Assessment Attended Joint Academy : Yes Joint AcademyType : Online Joint Health Care Liaison Name : daughters: Genesis Aponte Sherry Type of Surgery : Total Knee Replacement, Left Does Patient Have a Walker? : Yes Anticipated Discharge Plan : Home Health PT Anticipated Discharge Plan Comment : Patient plans to d/c home tomorrow with the help of her daughters. She would like to use [facility] for home PT. A pre-referral was sent and request for call if not seen on 11/08 to prevent delay in care as happened in January. Tere Carrasco RN-Navigator - 11/06/2020 8:58 EDT Teaching/Learning Assessment Barriers To Learning : None evident Individuals Taught : Patient Readiness to Learn : Cooperative Readiness to Learn : Demonstration, Explanation, Printed materials, Video/Educational TV Tere Carrasco RN-Navigator - 11/06/2020 8:58 EDT Education Topics, Orthopedic Pre-Op Ortho Pre-Op [...] Verbalizes understanding Turn/Cough/Deep Breathe : Verbalizes understanding (Comment: verbalizes understanding of incentive spirometry [Tere Carrasco RN-Navigator - 11/06/2020 8:58 EDT] ) Weight Bearing : Verbalizes understanding Ed-Orthopedic Pre-Op, Other : Verbalizes understanding Tere Carrasco RN-Navigator - 11/06/2020 8:58 EDT Electronically signed by [employer] Sweet Conversion Managing Consultant Clinical Professor Cerner at 11/06/2022 1:09 PM CDT documented in this encounter Plan of Treatment Not on file documented as of this encounter Visit Diagnoses Not on filedocumented in this encounter Care Teams Smoking Pipe Coater Relationship Specialty Start Date End Date Matheus Boggs MD [address] [facility] [address] [place] [phone] PCP - General Family Medicine 09/05/22 documented as of this encounter
--- OUTSIDE RECORDS SUMMARY | 2025-03-02 10:56 | XMS_ITS | Encounter Summary ---
Author Organization [employer] ([place], [place], [place], [place]) Address [address] [place] [address] Care Team Providers Care Tin Recovery Worker Name Role Phone Matheus Boggs MD Primary Care Provider + [phone] Encounter Details Date Type Department Care Team (Late st Contact Info) Description 01/31/2020 Transcribed Document [facility] Radiology [address] [place] [id number] Chris Keyes MD [address] [place] [address] Social History Tobacco Use Types Packs/Day Years [...] Conversion Note - Chris Keyes MD - 01/31/2020 11:16 AM EDT Patient: MARY WALKER V Age: 74 years Sex: Female : 1945 Associated Diagnoses: None Author: LI DIXON PA-FAM 01/31/2020 cc: medical management s/p right total knee arthroplasty. HPI: Patient is a 74 yo female admitted to [facility] per Dr. Gonzalez for a right total knee arthroplasty. Preoperatively patient was found to have advanced osteoarthritis of the right knee and elected surgical intervention after failing conservative treatment. Patient is followed perioperatively while hospitalized for medical management. Initial visit on floor - Denies prior stroke or seizure. Denies DC, CHF or cardiac arrhythmia. Denies DM. Denies [...] Asthma At risk for sleep apnea Bursitis Difficulty swallowing H/O bilateral Cataract Hard of [...] Unknown Percodan Rash Terramycin Rash Home Medications (13) Active acebutolol 200 mg, Oral, BID allerlgy shots 1, SubCutaneous, [id number] Arnuity Ellipta 100 mcg, PRN, Inhalation, [id number] fexofenadine 180 mg, Oral, Daily fluticasone 50 mcg/inh nasal spray 2 [place], PRN, Nasal, BID hydrochlorothiazide-irbesartan 12.5 mg-150 mg oral tablet 1 Tab, Oral, Daily hydrOXYzine hydrochloride 25 mg, PRN, Oral, TID Levoxyl 125 mcg, Oral, Daily liothyronine 5 mcg, Oral, Daily meloxicam 7.5 mg, Oral, Daily Singulair 10 mg, Oral, At Bedtime Tylenol 650 mg, Oral, At Bedtime Ventolin HFA 2 Puff, PRN, Inhalation, Q4H ROS: Constitutional: [No fevers, chills, sweats] HEENT: [No ear pain, nasal congestion, sore throat] +chronic sinus drainage. Respiratory: [No shortness of breath, cough, sputum production] Cardiovascular: [No Chest pain, palpitations, shortness of breath] Gastrointestinal: [No nausea, no vomiting, +diarrhea issues, no constipation] Genitourinary: [No hematuria, dysuria, +urinary incontinence Musculoskeletal: right knee currently numb from block Integumentary: [No rash, pruritus, abrasions, lesions] Neurologic: [No seizures or stroke. No dizziness or syncope. Exam: Vitals Signs (last 24 hrs) Last Charted Minimum Maximum Temp 97.8 (JAN 30 07:58) 97.8 (JAN 30 07:58) 97.8 (JAN 30 07:58) Mon HR 63 (JAN 30 07:58) 63 (JAN 30 07:58) 63 (JAN 30 07:58) Periph HR 71 (JAN 30 08:37) 71 (JAN 30 08:37) 71 (JAN 30 08:37) Resp Rate 16 (JAN 30 08:37) 16 (JAN 30 08:37) 17 (JAN 30 07:58) SBP H 149 (JAN 30 08:37) H 149 (JAN 30 08:37) H 150 (JAN 30 07:58) DBP 64 (JAN 30 08:37) L 57 (JAN 30 07:58) 64 (JAN 30 08:37) MAP 80 (JAN 30 07:58) 80 (JAN 30 07:58) 80 (JAN 30 07:58) SpO2 99 (JAN 30 08:37) 95 (JAN 30 07:58) 99 (JAN 30 08:37) GEN: awake, but still affected by her anesthesia earlier. NAD. dtr present HEENT: NCAT, no icterus, no thrush, nares patent, CV: S1S2, no murmur. No LE edema Resp: CTAB, NL; no wheezes or rhonchi Abd: Soft, NT, ND +BS Skin: no rashes on inspection and palpation. Ext: No LE edema. No joint edema, erythema. no calf tenderness Neuro: O x 3, CN grossly intact Data: Preop: reviewed cbc, bmp, UA, A1c 5.8 EKG Ventricular Rate : 55 BPM Atrial Rate : 55 BPM P-R Interval : 152 ms QRS Duration : 84 ms Q-T Interval : 440 ms QTC Calculation(Bezet) : 420 ms P [place] : 16 degrees R [place] : -6 degrees T [place] : 25 degrees Sinus bradycardia Cannot rule out Anterior infarct (cited on or before 13-JAN-2020) Abnormal ECG When compared with ECG of 13-JAN-2020 10:53, No significant change was found Confirmed by JAKUB ORTIZ M.D. ([id number]), editorial intern LILIAN BENÍTEZ ([id number]) on 01/13/2020 3:58:46 PM Impression: advanced OA right knee; -s/p right total knee arthroplasty per Dr. Gonzalez preop bradycardia, likely due to BB Plan: hold ARB and HCTZ - reassess bp and renal fxn in AM Monitor HTN; add PRN's, hold parameters bowel [...] on filedocumented in this encounter Care Teams Tin Recovery Worker Relationship Specialty Start Date End Date Matheus Boggs MD [address] [place] [facility] [address] [place] [phone] PCP - General Family Medicine 09/05/22 documented as of this encounter
--- OUTSIDE RECORDS SUMMARY | 2025-03-02 10:56 | XMS_ITS | Encounter Summary ---
Author Organization [email or web address] ([place], [place], [place], [place]) Address [address] [place] [address] Care Team Providers Care Hand Stitcher Name Role Phone Matheus Boggs MD Primary Care Provider + [phone] Encounter Details Date Type Department Care Team (Late st Contact Info) Description 01/31/2020 Transcribed Document [facility] [place] Family Medicine [address] [place] [address] ProviderCristopher MD [address] [place] [address] Social History Tobacco Use Types [...] Conversion Note - Cristopher ProviderMD - 01/31/2020 2:36 PM CDT Treatment Intervention, OT Entered On: 02/01/2020 13:18 EDT Performed On: 02/01/2020 10:32 EDT by Malinda Phillips STUDENT-OCCUPATIONAL THERAPIST General Information, OT Visit Type, OT : Treatment Note Malinda Phillips STUDENT-OCCUPATIONAL THERAPIST - 02/01/2020 13:08 EDT Patient Orders : Order Date Order Ordering 01/31/2020 12:47 OT Evaluation and Treatment Ordered By: DEAN ALVA MD-ORT 01/31/2020 12:47 OT Treatment Instructions Ordered By: DEAN ALVA MD-ORT 01/31/2020 14:36 OT Additional Treatment Ordered By: Active Diagnoses : 02/01/2020 12:00 Presence of unspecified artificial knee joint HANNAH PEREZ OTR/L - 02/01/2020 13:39 EDT Therapy Diagnosis, OT : Decreased independence with ADLs s/p R TKA Malinda Phillips STUDENT-OCCUPATIONAL THERAPIST - 02/01/2020 13:08 EDT Admission Date : 01/31/2020 10:45 HANNAH PEREZ OTR/L - 02/01/2020 13:39 EDT Co-treated by, OT : Physical Therapist Malinda Phillips STUDENT-OCCUPATIONAL THERAPIST - 02/01/2020 13:08 EDT Personal Devices : Personal Devices No Devices Recorded Assistive Devices : Assistive Devices No Devices Recorded HANNAH PREEZ OTR/Marianela - 02/01/2020 13:39 EDT General Status Patient Received Status : Up in chair Treatment Start Time : 02/01/2020 10:07 EDT Patient Left Status : Sitting edge of bed, RN/PCT informed, All needs met and within reach, Other: in PT care Treatment End Time : 02/01/2020 10:32 EDT Treatment Time : 25 Minute(s) Malinda Phillips STUDENT-OCCUPATIONAL THERAPIST - 02/01/2020 13:08 EDT Self Care/Home Management, OT Upper Body Dressing Assist Level, OT : Supervision or set-up Lower Body Dressing Assist Level, OT : Assist, minimal Malinda Phillips STUDENT-OCCUPATIONAL THERAPIST - 02/01/2020 13:08 EDT Functional Mobility Mobility Grid Sit to Stand : Supervision/set-up Bed to Chair : Supervision/set-up Chair to Bed : Supervision/set-up Stand to Sit : Supervision/set-up Malinda Phillips STUDENT-OCCUPATIONAL THERAPIST - 02/01/2020 13:08 EDT Plan of Care, OT OT Tx Plan/Goals Established w Patient : Yes Malinda Phillips STUDENT-OCCUPATIONAL THERAPIST - 02/01/2020 13:08 EDT Fdc Goals, OT Grooming LTG Grid Goal #1 Activity : Grooming Assist : Independent, modified Date to Meet : 02/14/2020 EDT Goal Status : Initial goal Malinda Phillips STUDENT-OCCUPATIONAL THERAPIST - 02/01/2020 13:08 EDT Dressing, Lower Body LTG Grid Goal #1 Activity : Dressing, Lower Body Assist : Independent, modified Date to Meet : 02/14/2020 EDT Goal Status : Progressing, continue Malinda Phillips STUDENT-OCCUPATIONAL THERAPIST - 02/01/2020 13:08 EDT Toilet Transfer LTG Grid Goal #1 Activity : Toilet Transfer, Ambulatory Assist : Independent, modified Date to Meet : 02/14/2020 EDT Goal Status : Progressing, continue Malinda Phillips STUDENT-OCCUPATIONAL THERAPIST - 02/01/2020 13:08 EDT Treatment Note Subjective Comment : Pt agreeable to participate in tx. Patient's Response to Treatment : Pt tolerated tx well. Additional Objective Information : Pt up in chair upon arrival. Pt educated on AE to increase independence in dressing and ADLs. Equipment included long handled shoe horn, secondary school teacher, sock aid, and leg school lunch manager. Pt verbalized understanding of equipment. Pt donned pants with no AE and set up assist. Pt donned socks utilizing sock aid with min A for set up. Min A req to don R shoe. Pt donned shirt and bra with set up assist. Pt ambulated in room and through hallway using Rwx with supervision. Pt experienced 1 LOB during turn that req min A to recover. Pt left sitting EOB in PT care at end of session. Assessment : Pt progressing toward goals. Plan for Treatment : See goals. Malinda Phillips STUDENT-OCCUPATIONAL THERAPIST - 02/01/2020 13:08 EDT Pain Assessment Pain Scaled Used : 0-10 Pain scale Pain Score Pre-Intervention : 0 Malinda Phillips STUDENT-OCCUPATIONAL THERAPIST - 02/01/2020 13:08 EDT Image 1 - Images currently included in the form version of this document have not been included in the text rendition version of the form. [place] OT Charges OT Selfcare/Hm Mgmt Ea 15 Min : 1 OT Ther Activities Ea 15 Min : 1 Malinda Phillips STUDENT-OCCUPATIONAL THERAPIST - 02/01/2020 13:08 EDT Electronically signed by Milo Sweet Conversion Keyseating Machine Set Up Operator Cerner at 11/06/2022 1:08 PM CDT documented in this encounter Plan of Treatment Not on file documented as of this encounter Visit Diagnoses Not on filedocumented in this encounter Care Teams Hand Stitcher Relationship Specialty Start Date End Date Matheus Boggs MD [address] [place] [facility] [address] [place] [id number] PCP - General Family Medicine 09/05/22 documented as of this encounter
--- OUTSIDE RECORDS SUMMARY | 2025-03-02 10:56 | XMS_ITS | Encounter Summary ---
Author Organization [employer] ([place], [place], [place], [place]) Address [address] [place] [address] Care Team Providers Care Ginner Helper Name Role Phone Matheus Boggs MD Primary Care Provider + [phone] Encounter Details Date Type Department Care Team (Late st Contact Info) Description 01/31/2020 Transcribed Document [facility] Family Medicine [facility] [place] [address] ProviderCristopher MD [address] [place] [id number] Social History Tobacco Use Types Packs/Day [...] Cristopher ProviderMD - 01/31/2020 10:35 AM CDT [facility] Main OR IntraOp Summary Primary Physician: DEAN ALVA MD-ORT Finalized Date/Time: 02/01/20 09:34:27 Pt. Name: MELISSA SIMON/Sex: 1945 Female Med Rec #: [id number] Physician: DEAN ALVA MD-ORT Financial #: [id number] Pt. Type: O Room/Bed: 64/ Admit/Disch: 01/31/20 10:45:00 - Institution: [facility] IntraOp Case Attendance Entry 1 Entry 2 Entry 3 Case Attendee DEAN ALVA Nichols, Tanya, ANITA HE CSA MD-ORT Role Performed Surgeon/Proceduralist, Scrub, Wood Pattern Maker, First First Time In 01/31/20 10:07:00 01/31/20 10:07:00 01/31/20 10:07:00 Time Out 01/31/20 11:57:00 01/31/20 11:57:00 01/31/20 11:57:00 Procedure Knee Total Joint Knee Total Joint Knee Total Joint Replacement(Right) Replacement(Right) Replacement(Right) Other Attendee Superficial Wound Closed By: Last Modified By: Renetta Lawrence RN Hamilton, Gina M, Renetta Castanon RN 01/31/20 11:59:12 01/31/20 11:59:12 01/31/20 11:59:12 Entry 4 Entry 5 Entry 6 Case Attendee Renetta Lawrence, Eulalia Pierce Crna OTHER, ATTENDEE Role Performed Learning And Development Intern, First WIRE TESTER/Nurse Meeting Manager Student Time In 01/31/20 10:07:00 01/31/20 10:07:00 01/31/20 10:07:00 Time Out 01/31/20 11:57:00 01/31/20 11:57:00 01/31/20 11:57:00 Procedure Knee Total Joint Knee Total Joint Knee Total Joint Replacement(Right) Replacement(Right) Replacement(Right) Other Attendee ORLANDO HATCH CRNA Superficial Wound Closed By: Last Modified By: Renetta Lawrence RN Hamilton, Gina M, RN Hamilton, Gina M, RN 01/31/20 11:59:12 01/31/20 11:59:12 01/31/20 11:59:12 Entry 7 Entry 8 Entry 9 Case Attendee OTHER, ATTENDEE #1 HERMINIA RAINES SCHNELLE, JENNIFER, WOOD MACHINE CARVER -ANS Role Performed Vendor Anesthesiologist Scrub, First Time In 01/31/20 10:07:00 01/31/20 10:07:00 01/31/20 11:15:00 Time Out 01/31/20 11:57:00 01/31/20 11:57:00 01/31/20 11:57:00 Procedure Knee Total Joint Knee Total Joint Knee Total Joint Replacement(Right) Replacement(Right) Replacement(Right) Other Attendee LUBNA BLANC - EDER LUNCH RELIEF Superficial Wound Closed By: Last Modified By: Renetta Lawrence, Renetta Castanon, Renetta Castanon RN 01/31/20 11:59:12 01/31/20 11:59:12 01/31/20 11:59:12 [facility] IntraOp Case Attendance Audit 01/31/20 11:59:12 Automatic Brine Mixer Operator: HAMILTGM Modifier: HAMILTGM 1 <+> Time Out 1 <*> Procedure Knee Total Joint Replacement(Right) 2 <+> Time Out 2 <*> Procedure Knee Total Joint Replacement(Right) 3 <+> Time Out 3 <*> Procedure Knee Total Joint Replacement(Right) 4 <+> Time Out 4 <*> Procedure Knee Total Joint Replacement(Right) 5 <+> Time Out 5 <*> Procedure Knee Total Joint Replacement(Right) 6 <+> Time Out 6 <*> Procedure Knee Total Joint Replacement(Right) 7 <+> Time Out 7 <*> Procedure Knee Total Joint Replacement(Right) 8 <+> Time Out 8 <*> Procedure Knee Total Joint Replacement(Right) 9 <+> Time Out 9 <*> Procedure Knee Total Joint Replacement(Right) 01/31/20 11:50:30 Automatic Brine Mixer Operator: HAMILTGM Modifier: HAMILTGM 1 <*> Procedure Knee Total Joint Replacement(Right) 2 <*> Procedure Knee Total Joint Replacement(Right) 3 <*> Procedure Knee Total Joint Replacement(Right) 4 <*> Procedure Knee Total Joint Replacement(Right) 5 <*> Procedure Knee Total Joint Replacement(Right) 6 <*> Procedure Knee Total Joint Replacement(Right) 7 <*> Procedure Knee Total Joint Replacement(Right) 8 <*> Procedure Knee Total Joint Replacement(Right) <+> 9 Procedure 01/31/20 11:17:17 Automatic Brine Mixer Operator: HAMILTGM Modifier: HAMILTGM 8 <+> Case Attendee 8 <*> Procedure Knee Total Joint Replacement(Right) <+> 9 Case Attendee <+> 9 Role Performed <+> 9 Time In <+> 9 Other Attendee 01/31/20 10:40:56 Automatic Brine Mixer Operator: HAMILTGM Modifier: HAMILTGM 1 <+> Time In 1 <*> Procedure Knee Total Joint Replacement(Right) 2 <+> Time In 2 <*> Procedure Knee Total Joint Replacement(Right) 3 <+> Time In 3 <*> Procedure Knee Total Joint Replacement(Right) 4 <+> Time In 4 <*> Procedure Knee Total Joint Replacement(Right) 5 <+> Time In 5 <*> Procedure Knee Total Joint Replacement(Right) 6 <+> Time In 6 <*> Procedure Knee Total Joint Replacement(Right) 7 <+> Time In 7 <*> Procedure Knee Total Joint Replacement(Right) 8 <+> Time In 8 <*> Procedure Knee Total Joint Replacement(Right) [facility] IntraOp Case Times Entry 1 Patient In Room Time 01/31/20 10:07:00 Out Room Time 01/31/20 11:57:00 Anesthesia Start Time 01/31/20 10:07:00 Stop Time 01/31/20 11:57:00 Surgery / Procedure Times Start Time 01/31/20 10:35:00 Stop Time 01/31/20 11:50:00 Last Modified By: Renetta Lawrence RN 01/31/20 11:59:11 [facility] IntraOp Case Times Audit 01/31/20 11:59:11 Automatic Brine Mixer Operator: HAMILTGM Modifier: HAMILTGM <+> 1 Out Room Time <+> 1 Stop Time 01/31/20 11:50:29 Automatic Brine Mixer Operator: HAMILTGM Modifier: HAMILTGM <+> 1 Stop Time [facility] IntraOp Cautery Entry 1 ESU Identification Cautery Type Monopolar ESU ID Number [id number] ID Type Hospital Number Cautery Settings Cut Setting 50 Coag Setting 50 ESU Grounding Pad Ground Pad Type Adult Grounding Pad Site Right Flank Grounding Pad Renetta Lawrence RN Applied By Grounding Pad Site Warm, Dry, Intact Skin Condition Before Cautery Grounding Pad Site Unchanged Skin Condition After Cautery Last Modified By: Renetta Lawrence RN 01/31/20 09:32:25 [facility] IntraOp Communication Entry 1 Entry 2 Communication To Family/Significant other Other Comment START REPORT Communication By Renetta Lawrence RN Hamilton, Gina M, RN Date and Time 01/31/20 10:37:00 01/31/20 11:26:00 Last Modified By: Renetta Lawrence RN Hamilton, Gina M, RN 01/31/20 10:37:14 01/31/20 11:26:26 [facility] IntraOp Communication Audit 01/31/20 11:26:26 Automatic Brine Mixer Operator: HAMILTGM Modifier: HAMILTGM <+> 2 Communication By <+> 2 Date and Time <+> 2 Communication To <+> 2 Comment [facility] IntraOp Counts Verification Entry 1 Procedure Knee Total Joint Replacement(Right) Count Info Count Type Sponge, Sharps, Miscellaneous Counts Verification Baseline/pre-procedure Sequence Count Results Not Applicable Counts Performed By Count Performed By Phoebe Mukherjee ST (Scrub) Count Performed By Renetta Lawrence RN (RN) Last Modified By: Renetta Lawrence RN 01/31/20 09:32:39 [facility] IntraOp Counts Final Entry 1 Procedure Knee Total Joint Replacement(Right) Final Count Info Count Type Sponge, Sharps, Miscellaneous Counts Verification Skin Closure/end of Sequence procedure Count Results Correct, surgeon notified Counts Performed By Count Performed By AIMEE CALABRESE CST (Scrub) Count Performed By Renetta Lawrence RN (RN) Last Modified By: Renetta Lawrence RN 01/31/20 11:24:00 [facility] IntraOp Counts Final Audit 01/31/20 11:24:00 Automatic Brine Mixer Operator: HAMILTGM Modifier: HAMILTGM 1 <*> Procedure Knee Total Joint Replacement(Right) 1 <+> Count Performed By (Scrub) 1 <+> Count Performed By (RN) [facility] IntraOp Cultures and Spec Summary Entry 1 Cultrures and Specimens Specimen Ordered: Yes Test(s) Routine/Path-Lab Requested/Final Disposition Last Modified By: Renetta Lawrence RN 01/31/20 09:33:05 General Comments: A. RIGHT KNEE BONES AND TISSUE [facility] IntraOp Departure from OR Entry 1 Integumentary Assessment Integumentary WDL Assessment WDL Transfer/Handoff Transfer to PACU Phase I Handoff Method Phone call Post-op Transport Bed (including Via specialty) Patient Transport Eulalia Tejada Crna, Accompanied by Renetta Lawrence RN Last Modified By: Renetta Lawrence RN 01/31/20 09:33:24 [facility] IntraOp Dressing and Packing Entry 1 Type Dressing Location OPERATIVE KNEE Wound Dressing Item Occlusive dressing, Skin Closure Glue Applied By ANITA MEJÍA CSA Other Comments AQUACEL AG, SAMIA HOSE, SCD SLEEVE Last Modified By: Renetta Lawrence RN 01/31/20 09:33:46 [facility] IntraOp Fire Risk Assessment Entry 1 Fire Info Surgical Site or 0- No Incision Above the Xyphoid Open O2 Source 0- No (Mask or Cannula) Available Ignition 1- Yes (ESU, Laser, Light Source) Fire Risk 1 Assessment Score Fire Score Fire Risk Yes Assessment Complete Fire Risk Renetta Lawrence RN Assessment Verified By Fire Risk 01/31/20 09:33:00 Assessment Verified Date/Time Fire Risk Standard Fire Yes Safety Precautions Followed Last Modified By: Renetta Lawrence RN 01/31/20 09:33:51 [facility] IntraOp General Case Small Engine Trainer 1 Case Information OR OR 05 [facility] Case Level 1 Room Verified Yes Wound Class I - Clean Specialty SN Orthopedic Anesthesia Type General ASA Class 2 Diagnosis Preop Diagnosis RIGHT KNEE OA Postop Same As Preop No Postop Diagnosis SEE DOCTOR'S POST OP NOTES Last Modified By: Renetta Lawrence RN 01/31/20 10:37:26 [facility] IntraOp General Case Data Audit 01/31/20 10:37:26 Automatic Brine Mixer Operator: LESTGPawel Modifier: HAMILTGM <+> 1 ASA Class [facility] IntraOp Implant Log Entry 1 Entry 2 Entry 3 Type Implant (Synthetic) Implant (Synthetic) Implant (Synthetic) Implant Log Implant Type Bone Cement Hardware Hardware Tissue Implant Type Implant CEMENT BONE SMPLX FEM CEMENTED CR NARROW TIB STEM SZ [id number] Description Implant Quantity 2 1 1 Implant Site OPSITE OPSITE OPSITE Implant Identification Model Number Implant Identification Serial Number Implant [id number] Identification Lot Number Implant Daykin:Douglas Identification Orthopaedics Ratings Analyst Name: Implant [id number] Identification Catalog Number Implant Size Implant Has an Yes Yes Yes Expiration Date Implant Expiration 02/17/21 09/17/29 11/17/28 Date Wasted Radioactive Material Time Implanted Tissue Implant Continue for Tissue Implant Documentation Tissue Identification Number Graft Prep Per Ratings Analyst Instructions: Tissue Preparation Method: Reconstitution Solution: Reconstitution Solution Lot Number Reconstitution Solution Expiration Date: Thawing Solution Thawing Solution Lot Number Thawing Solution Expiration Date Preparation Materials, Other Preparation Materials, Other Lot Number Preparation Materials, Other Expiration Date Tissue Prepared/Processed By Ratings Analyst Paperwork Completed Implant Type Comment Last Modified By: Renetta Lawrence RN Hamilton, Gina M, RN Hamilton, Gina M, RN 01/31/20 09:35:03 01/31/20 11:20:13 01/31/20 11:20:13 Entry 4 Entry 5 Type Implant (Synthetic) Implant (Synthetic) Implant Log Implant Type Hardware Hardware Tissue Implant Type Implant PATELLA CEMENTED PSN ASF MC 10MM VE Identification [id number] Description Implant Quantity 1 1 Implant Site OPSITE OPSITE Implant Identification Model Number Implant Identification Serial Number Implant [id number] Identification Lot Number Implant Identification Ratings Analyst Name: Implant Identification Catalog Number Implant Size Implant Has an Yes Yes Expiration Date Implant Expiration 04/19/27 11/18/23 Date Wasted Radioactive Material Time Implanted Tissue Implant Continue for Tissue Implant Documentation Tissue Identification Number Graft Prep Per Ratings Analyst Instructions: Tissue Preparation Method: Reconstitution Solution: Reconstitution Solution Lot Number Reconstitution Solution Expiration Date: Thawing Solution Thawing Solution Lot Number Thawing Solution Expiration Date Preparation Materials, Other Preparation Materials, Other Lot Number Preparation Materials, Other Expiration Date Tissue Prepared/Processed By Ratings Analyst Paperwork Completed Implant Type Comment Last Modified By: Renetta Lawrence RN Hamilton, Gina M, RN 01/31/20 11:20:13 01/31/20 11:20:13 [facility] IntraOp Implant Log Audit 01/31/20 11:20:13 Automatic Brine Mixer Operator: ALDA Modifier: ALDA <+> 2 Implant Identification Description <+> 2 Implant Identification Lot Number <+> 2 Implant Expiration Date <+> 2 Implant Site <+> 2 Implant Quantity <+> 2 Implant Type <+> 2 Implant Has an Expiration Date <+> 2 Type <+> 3 Implant Identification Description <+> 3 Implant Identification Lot Number <+> 3 Implant Expiration Date <+> 3 Implant Site <+> 3 Implant Quantity <+> 3 Implant Type <+> 3 Implant Has an Expiration Date <+> 3 Type <+> 4 Implant Identification Description <+> 4 Implant Identification Lot Number <+> 4 Implant Expiration Date <+> 4 Implant Site <+> 4 Implant Quantity <+> 4 Implant Type <+> 4 Implant Has an Expiration Date <+> 4 Type <+> 5 Implant Identification Description <+> 5 Implant Identification Lot Number <+> 5 Implant Expiration Date <+> 5 Implant Site <+> 5 Implant Quantity <+> 5 Implant Type <+> 5 Implant Has an Expiration Date <+> 5 Type [facility] IntraOp Intraoperative Assessment Entry 1 Handoff Method Online nursing summary Valid History / Yes Physical in Chart Preoperative Yes Checklist Reviewed/Evaluated Allergies Reviewed Yes Patient is Latex No Sensitive Isolation Not applicable Precautions Noted Level of WDL Consciousness (WDL = Alert, Oriented to Person, Place, and Time) Skin Assessment Yes Verified Present Upon IVs Arrival to OR Last Modified By: Renetta Lawrence RN 01/31/20 09:35:17 [facility] IntraOp Intraoperative Equipment Entry 1 Type Equipment Equipment Equipment Darleen Suction System Setting HIGH Intraop Monitoring Electrocardiogram Three lead placement (ECG) Electrode Placement Blood Pressure Non-Invasive BP Device Source Blood Pressure Arm, right upper Location Pulse Oximeter Hand, left Probe Site Antiembolic Devices Antiembolic Devices Sequential compression device, knee high Antiembolic Device Left Location Antiembolic Device 40 MMHG Setting Scopes Photo/Video Documentation Photo No Video No Last Modified By: Renetta Lawrence RN 01/31/20 09:35:45 [facility] IntraOp Medication Admin Entry 1 Entry 2 Entry 3 Medication/Irrigant Bacitracin 50,00units Bacitracin 50,00units hydrogen peroxide 16oz powder vial powder vial - [id number] Combo Med List 1 - Combo Med 1 - Combo Med Time Administered Route of ADDED TO IRRIGATION ADDED TO IRRIGATION TOPICAL Administration Dose Dose [id number] Unit of Measure units units Volume IN 2000ML SALINE IN 3000ML SALINE Administered By DEAN ALVA KARTHIKEYAN, THARUN, KARTHIKEYAN, THARUN, MD-ORT -ORT -ORT Procedure Irrigation Irrigant Volume In Irrigant Volume Out Last Modified By: Renetta Lawrence RN Hamilton, Gina M, RN Hamilton, Gina M, RN 01/31/20 09:36:34 01/31/20 09:36:34 01/31/20 09:36:34 Entry 4 Medication/Irrigant vancomycin 1Gm vial - [id number] Combo Med List Time Administered Route of TOPICAL Administration Dose Dose 1 Unit of Measure gram Volume Administered By DEAN ALVA MD-ORMarycarmen Procedure Irrigation Irrigant Volume In Irrigant Volume Out Last Modified By: Renetta Lawrence RN 01/31/20 09:36:34 [facility] IntraOp Patient Positioning Entry 1 Procedure Knee Total Joint Replacement(Right) Body Position Supine Left Arm Position Secured on padded arm board Right Arm Position Secured on padded arm board Left Leg Position Uncrossed, parallel Right Leg Position Held on field Feet Uncrossed Yes Pressure Points Yes Checked Positioning Devices Arm Board, Head Rest, Pad, Arm, Pad, Elbow, Safety Strap, Arm(s), Safety Strap, Chest, Foot Rest Device Position LATERAL POST, POPITEAL SUPPORT FOR FOOTREST Positioned By DEAN ALVA MD-ORT, Eulalia Tejada Crna, Renetta Lawrence RN, ANITA MEJÍA CSA Position Verified Positioning Yes Verified by Anesthesia Positioning Yes Verified by Surgeon Last Modified By: Renetta Lawrence RN 01/31/20 09:37:13 [facility] IntraOp Sign In Entry 1 Patient, Site, [...] Warming Measures Yes Taken Last Modified By: Renetta Lawrence RN 01/31/20 09:38:26 [facility] IntraOp Sign Out Entry 1 RN Confirmation [...] Checklist Yes Elements Complete? RN Sign Out Renetta Lawrence RN Signature RN Sign Out 01/31/20 11:50:00 Signature Date/Time Plan of Care Outcome - [...] related to extraneous objects Last Modified By: Renetta Lawrence RN 01/31/20 11:50:35 [facility] IntraOp Sign Out Audit 01/31/20 11:50:35 Automatic Brine Mixer Operator: HAMILTGM Modifier: HAMILTGM <+> 1 RN Sign Out Signature Date/Time [facility] IntraOp Skin Prep Entry 1 Procedure Knee Total Joint Replacement(Right) Prescribed Yes Pre-Surgical Prep Completed Prep Area OPERATIVE THIGH TO TOES CIRCUMFRENTIALLY Intraop Prep Integumentary WDL Assessment WDL Prep Agents Alcohol, Chloraprep, DuraPrep, Chlorhexadine gluconate Prep by Renetta Lawrence RN Hair Removal Methods No hair removal performed Last Modified By: Renetta Lawrence RN 01/31/20 09:37:27 [facility] IntraOp Surgical Procedures Entry 1 Procedure Knee Total Joint Replacement Modifiers Right Additional RT TOTAL KNEE Procedure ARTHROPLASTY Description Primary Procedure Yes Primary Surgeon DEAN ALVA MD-ORT Start 01/31/20 10:35:00 Stop 01/31/20 11:50:00 Anesthesia Type General Specialty SN Orthopedic Wound Class I - Clean Last Modified By: Renetta Lawrence RN 01/31/20 11:50:29 General Comments: 2 GRAMS OF ANCEF INFUSED AT 1019 PER ANESTHESIA [facility] IntraOp Surgical Procedures Audit 01/31/20 11:50:29 Automatic Brine Mixer Operator: HAMILTGM Modifier: HAMILTGM <+> 1 Stop 01/31/20 10:36:27 Automatic Brine Mixer Operator: HAMILTGM Modifier: HAMILTGM 1 <*> Start 1 <*> Start 1 <*> Start [facility] IntraOp Temp Regulation Devices Entry 1 Temp Regulation Temperature Forced Air Warming Regulation Device device, Warm blankets Temperature Upper body Regulation Site Temperature Device 43 DEGREES CELCIUS Setting Temperature Eulalia Tejada, Sascha Regulation Device Applied by Last Modified By: Renetta Lawrence RN 01/31/20 09:37:39 [facility] IntraOP Time Out Entry 1 Procedure to be Knee Total Joint Performed Replacement(Right) Time Out Time Out Pause Time 01/31/20 10:35:00 All activity Yes suspended (unless life threatening [...] Critical Events Surgeon None expected Anesthesia Provider None expected Nursing Assures Sterility of instruments, Implant Availability Essential Imaging Yes Labeled and Displayed Last Modified By: Renetta Lawrence RN 01/31/20 10:36:25 [facility] IntraOP Time Out Audit 01/31/20 10:36:25 Automatic Brine Mixer Operator: LESTGPawel Modifier: RADHAILTGM 1 <+> Time Out Pause Time 1 <*> Procedure to be Performed Knee Total Joint Replacement(Right) [facility] IntraOp Tourniquet Entry 1 Type Pneumatic Serial/Unit Number [id number] Setting 300 mmHg Pheumatic Yes Tourniquet Checked Per Protocol Size 34 inches Placement Thigh, right upper Skin Protection - Yes Padded Under Cuff Applied By ANITA MEJÍA, CSA Removed By ANITA MEJÍA, CSA Times Start Time 01/31/20 10:35:00 Stop Time 01/31/20 11:32:00 Total Time 57 calculated manually (Mins) Last Modified By: Renetta Lawrence RN 01/31/20 11:33:06 [facility] IntraOp Tourniquet Audit 01/31/20 11:33:06 Automatic Brine Mixer Operator: LESTGM Modifier: HAMILTGM <+> 1 Total Time calculated manually (Mins) <+> 1 Stop Time 01/31/20 10:36:53 Automatic Brine Mixer Operator: HAMILTGM Modifier: HAMILTGM <+> 1 Start Time Case Comments <None> Finalized By: DORETHA ADEN Document Signatures Signed By: Renetta Lawrence RN 01/31/20 11:59 DORETHA ADEN 02/01/20 09:34 Unfinalized History Date/Time Username Reason for Unfinalizing Freetext Reason for Unfinalizing 02/01/20 09:31 WATTSDR Correct Billing documented in this encounter Plan of Treatment Not on file documented as of this encounter Visit Diagnoses Not on filedocumented in this encounter Care Teams Ginner Helper Relationship Specialty Start Date End Date Matheus Boggs MD [address] [facility] [address] [place] [phone] PCP - General Family Medicine 09/05/22 documented as of this encounter
--- OUTSIDE RECORDS SUMMARY | 2025-03-02 10:56 | XMS_ITS | Encounter Summary ---
Author Organization [employer] ([place], [place], [place], [place]) Address [address] [place] [address] Care Team Providers Care Roll Sheeting Cutter Name Role Phone Matheus Boggs MD Primary Care Provider + [phone] Encounter Details Date Type Department Care Team (Late st Contact Info) Description 02/01/2020 Transcribed Document [facility] [place] Family Medicine [facility] [place] [address] ProviderCristopher MD [address] [place], [place] [id number] Social History Tobacco Use Types Packs/Day Years [...] Conversion Note - Cristopher ProviderMD - 02/01/2020 9:52 AM CDT [facility] Authorization Entered On: 02/01/2020 9:53 EDT Performed On: 02/01/2020 9:52 EDT by Susi Andino Rn-Utilization Review Primary Insurance Authorization Authorization and Policy Numbers : Insurance 1 Health Plan: MEDICARE Policy Number: [id number] Authorization Number: NPR Insurance 2 Health Plan: AARP N Policy Number: [id number] Authorization Number: NPR Insurance Primary Name : MEDICARE Authorization Number-Primary : NPR for Medicare Authorized Service Begin Date-Primary : 01/31/2020 EDT Historical Authorization Comments-Primary : Comment 1: pt scheduled for OUT PT total knee replacement (Right) on 01-31-2020 Medicare: NPR (JOSH MALIK, [employer] Floor Walker 01/28/2020 13:53) Susi Andino, Rn-Utilization Review - 02/01/2020 9:52 EDT Electronically signed by [facility] Conversion Tobacco Feeder Catcher Cerner at 11/06/2022 1:00 PM CDT documented in this encounter Plan of Treatment Not on file documented as of this encounter Visit Diagnoses Not on filedocumented in this encounter Care Teams Roll Sheeting Cutter Relationship Specialty Start Date End Date Matheus Boggs MD [address] [facility] [address] [place] [phone] PCP - General Family Medicine 09/05/22 documented as of this encounter
--- OUTSIDE RECORDS SUMMARY | 2025-03-02 10:56 | XMS_ITS | Encounter Summary ---
Author Organization [employer] ([place], [place], [place], [place]) Address [address] [place] [address] Care Team Providers Care Temper Mill Operator Name Role Phone Matheus Boggs MD Primary Care Provider + [phone] Encounter Details Date Type Department Care Team (Late st Contact Info) Description 01/13/2020 Transcribed Document [facility] [place] Family Medicine [address] [place] [address] ProviderCristopher MD [address] [place], [place] [id number] Social History Tobacco Use Types Packs/Day Years Used Date Smoking Tobacco: Never Assessed Comments Unknown Sex and Gender Information Value Date Recorded Sex Assigned at Female 12/04/2023 11:21 PM CDT Legal Sex Female 7:28 PM CDT Gender Identity Female 12/04/2023 11:21 PM CDT Sexual Orientation Not on file documented as of this encounter Miscellaneous Notes * Cerner Conversion Note - Cristopher ProviderMD - 01/13/2020 10:06 AM CDT Total Joints Assessment Entered On: 02/28/2020 10:07 EDT Performed On: 01/13/2020 10:06 EDT by Tere Carrasco RN-Navigator JR. JESSY Knee Survey 1. How severe is your knee stiffness after first wakening in the morning? : Moderate 2. Twisting/pivoting on your knee : Severe 3. Straightening knee fully : Moderate 4. Going up or down stairs : Severe 5. Standing upright : Severe 6. Rising from sitting : Severe 7. Bending to floor/milk pickup truck driver an object : Moderate JESSY SÁNCHEZ Raw Score (ref) : 18 Tere Carrasco RN-Navigator - 02/28/2020 10:06 EDT PROMIS Global Health Scale In general, would you say your health is: : Good In general, would you say your quality of life is: : Good In general, how would you rate your physical health? : Good In general, how would you rate your mental health, including your mood and your ability to think? : Good In general, how would you rate your satisfaction with your social activities and relationships? : Good In general, please rate how well you carry out your usual social activities and roles. (This includes activities at home, at work and in your community, and responsibilities as a parent, child, spouse, employee, friend, etc.) : Fair To what extent are you able to carry out your everyday physical activities such as walking, climbing stairs, carrying groceries, or moving a chair? : A little How often have you been bothered by emotional problems such as feeling anxious, depressed or irritable? : Sometimes How would you rate your fatigue on average? : Moderate How would you rate your pain on average? : 5 Global Physical Health Score (ref) : 11 Global Mental Health Score (ref) : 12 Tere Carrasco RN-Navigator - 02/28/2020 10:06 EDT documented in this encounter Plan of Treatment Not on file documented as of this encounter Visit Diagnoses Not on filedocumented in this encounter Care Teams Temper Mill Operator Relationship Specialty Start Date End Date Matheus Boggs MD [address] [place] [facility] [address] [place] [phone] PCP - General Family Medicine 09/05/22 documented as of this encounter
--- OUTSIDE RECORDS SUMMARY | 2025-03-02 10:56 | XMS_ITS | Encounter Summary ---
Author Organization [employer] ([place], [place], [place], [place]) Address [address] [place] [address] Care Team Providers Care Weekend Anchor Name Role Phone Matheus Boggs MD Primary Care Provider + [phone] Encounter Details Date Type Department Care Team (Late st Contact Info) Description 01/31/2020 Transcribed Document [facility] [place] [facility] [place] [address] ProviderCristopher MD [address] [place] [address] Social History Tobacco Use Types Packs/Day [...] Conversion Note - Cristopher ProviderMD - 01/31/2020 1:58 PM CDT Treatment Intervention, PT Entered On: 02/01/2020 12:09 EDT Performed On: 02/01/2020 12:07 EDT by EDU BARNES, PT General Information, PT Visit Type, PT : Treatment Note Patient Orders : Order Date Order Ordering 01/31/2020 12:47 PT Evaluation and Treatment Ordered By: DEAN ALVA MD-ORT 01/31/2020 12:47 PT Treatment Instructions Ordered By: DEAN ALVA MD-ORMarycarmen 01/31/2020 12:47 PT Treatment Instructions Ordered By: DEAN ALVA MD-ORMarycarmen 01/31/2020 12:47 PT Treatment Instructions Ordered By: DEAN ALVA MD-ORMarycarmen 01/31/2020 12:47 PT Treatment Instructions Ordered By: DEAN ALVA MD-ORMarycarmen 01/31/2020 12:47 PT Treatment Instructions Ordered By: DEAN ALVA MD-ORMarycarmen 01/31/2020 13:58 PT Additional Treatment Ordered By: EDU BARNES, PT Active Diagnoses : 02/01/2020 12:00 Presence of unspecified artificial knee joint Therapy Diagnosis, PT : Aftercare following R TKA Admission Date : 01/31/2020 10:45 Co-treated by, PT : Occupational Therapist Personal Devices : Personal Devices No Devices Recorded Assistive Devices : Assistive Devices No Devices Recorded EDU BARNES PT - 02/01/2020 12:07 EDT General Status Patient Received Status : Up in chair Treatment Start Time : 02/01/2020 10:16 EDT Patient Left Status : Up in chair, RN/PCT informed, Family/Visitors at bedside, Communication board completed, All needs met and within reach, Other: SCd's, ICE, Bone Foam RN/PCT Informed Comment : Michelle shaver and pt consent Treatment End Time : 02/01/2020 10:54 EDT Treatment Time : 38 Minute(s) EDU BARNES PT - 02/01/2020 12:07 EDT Edu Topics Physical Therapy Education Grid Bed Mobility Training : Returns demonstration Gait Training : Returns demonstration Home Program/Exercises : Verbalizes understanding Role of Physical Therapy : Verbalizes understanding Safety : Verbalizes understanding Therapeutic Exercises : Returns demonstration Transfer Training : Returns demonstration Use of Assistive Device : Returns demonstration EDU BARNES, PT - 02/01/2020 12:07 EDT Indication Assesessment, PT Physical Therapy Indicated : EDU Coffman PT - 02/01/2020 12:07 EDT Plan of Care, PT PT Tx Plan/Goals Established w Patient : No EDU BARNES PT - 02/01/2020 12:07 EDT Halfway Goals Mobility/Bed Mobility LTG PT Grid Goal #1 Goal #2 Activity : Sit to stand Supine to sit Assist : Supervision or set-up Independent, complete Equipment : Walker, front wheel Date to Meet : 02/14/2020 EDT 02/14/2020 EDT Goal Status : Goal met Goal met Date Met : 02/01/2020 EDT 02/01/2020 EDT EDU BARNES, PT - 02/01/2020 12:07 EDT EDU BARNES, PT - 02/01/2020 12:07 EDT Ambulation LTG Grid Goal #1 Device : Walker, front wheel Distance : 100ft Assist : Supervision or set-up Date to Meet : 02/14/2020 EDT Goal Status : Goal met Date Met : 02/01/2020 EDT EDU BARNES, PT - 02/01/2020 12:07 EDT Treatment Note Subjective Comment : Pt agreeabel to PT treatment, denies pain at rest. Patient's Response to Treatment : Pt tolerated post-op TKA therex and gait training well with no acute complaints. Education provided about performance of HEP 3x per day and to emphasize ROM tasks during initial recovery phase. Reinforced use of Bone Foam minimum 3x per day for 60 minute sessions to promote knee extension and increasing use of bone foam as tolerated. Additional Objective Information : R knee ROM 0-102 degrees, Joint agile coach present during treatment. Pt ambulated x 150ft to therapy gym with RWx and SBA with min verbal cues for safe use of assistive device. Pt then participated in 10 repetitions of seated LAQ, marching in place, and heel slides; supine ankle pumps, quad sets glut sets, SAQ, SLR, heel slides, and hip abduction. No acute complaints throughout. Assessment : Pt has currently met 3/3 [...] Foam during acute phase of TKA rehab. Plan for Treatment : discontinue EDU BARNES, PT - 02/01/2020 12:07 EDT Pain Assessment Pain Scaled Used : 0-10 Pain scale Pain Score Pre-Intervention : 0 Pain Score Post-Intervention. : 0 EDU BARNES PT - 02/01/2020 12:07 EDT Image 1 - Images currently included in the form version of this document have not been included in the text rendition version of the form. [place] [facility] Charges PT Therap. Exercise 15 min : 2 Gait Training Each 15 Min : 1 EDU BARNES, PT - 02/01/2020 12:07 EDT Electronically signed by Kee [facility] Conversion Entry Level Programmer Cerner at 11/06/2022 1:07 PM CDT documented in this encounter Plan of Treatment Not on file documented as of this encounter Visit Diagnoses Not on filedocumented in this encounter Care Teams Weekend Anchor Relationship Specialty Start Date End Date Matheus Boggs MD [address] [place] [facility] [address] [place] [phone] PCP - General Family Medicine 09/05/22 documented as of this encounter
--- OUTSIDE RECORDS SUMMARY | 2025-03-02 10:56 | XMS_ITS | Encounter Summary ---
Author Organization [employer] ([place], [place], [place], [place]) Address [address] [place] [address] Care Team Providers Care Regional Company Flatbed Truck Driver Name Role Phone Matheus Boggs MD Primary Care Provider + [phone] Encounter Details Date Type Department Care Team (Late st Contact Info) Description 10/17/2020 Transcribed Document [facility] [place] [facility] [place] [address] ProviderCristopher MD [address] [place] [address] Social History Tobacco Use Types Packs/Day [...] Cerner Conversion Note - Cristopher ProviderMD - 10/17/2020 11:08 AM CDT Orthopedic Nurse Navigator Entered On: 10/17/2020 11:13 EDT Performed On: 10/17/2020 11:08 EDT by Tere Carrasco RN-Navigator Orthopedic Nurse Navigator Assessment Joint Navigator Assessment Note : Spoke with patient, she confirmed PAT appt on 10/19 arrive at 1230. She plans to use [facility], as she did for her RTKA in January. Violeta had taken a week to see her due to failing to receive sent orders. Will send Home PT orders a week before surgery with start of care 11/08. She plans to d/c home after overnight stay with help from her three daughters. Sadly, her in August. Tere Carrasco, RN-Navigator - 10/17/2020 11:08 EDT Electronically signed by [facility] Conversion Computer Typesetter Keyliner Cerner at 11/06/2022 12:57 PM CDT documented in this encounter Plan of Treatment Not on file documented as of this encounter Visit Diagnoses Not on filedocumented in this encounter Care Teams Regional Company Flatbed Truck Driver Relationship Specialty Start Date End Date Matheus Boggs MD [address] [facility] [address] [place] [phone] PCP - General Family Medicine 09/05/22 documented as of this encounter
--- OUTSIDE RECORDS SUMMARY | 2025-03-02 10:56 | XMS_ITS | Encounter Summary ---
Author Organization [employer] ([place], [place], [place], [place]) Address [address] [place] [address] Care Team Providers Care Four Roll Calender Operator Name Role Phone Matheus Boggs MD Primary Care Provider + [phone] Encounter Details Date Type Department Care Team (Late st Contact Info) Description 02/01/2020 Transcribed Document [facility] [place] Family [place] [facility] [place] [address] ProviderCristopher MD [address] [place] [address] Social History Tobacco Use Types Packs/Day [...] Conversion Note - Cristopher ProviderMD - 02/01/2020 5:20 PM CDT On Going Discharge Planning Entered On: 02/01/2020 17:21 EDT Performed On: 02/01/2020 17:20 EDT by NAGI TAPIA RN-Type Casting Machine OperatorVacuum Metalizer Operator Progress Note Discharge Arrangements : Patient Post-Acute Information Patient Name: MELISSA WALKER V Gender: Female : 45 Age: 74 Years No Post-Acute Placement(s) Listed No Post-Acute Service(s) Listed No [place] Referral(s) Listed Discharge Options Discussed with Patient : DME, Home Health Barriers to Discharge Unresolved : All resolved Designation of Choice Signed : Yes Patient Offered Choice/Affiliations Explained : Yes List/Info Provided Pt/Fam/Support Person : Durable medical equipment, Home health Were Referrals Sent to Post Acute Providers : Yes Physician Agreeable to Move Forward with D/C Plan? : Yes Did you Attend Multidisciplinary Rounds? : Yes NAGI TAPIA RN-Type Casting Machine Operator - 02/01/2020 17:20 EDT Electronically signed by [facility] [place] [facility] Conversion Pilates Instructor Cerner at 11/06/2022 1:00 PM CDT documented in this encounter Plan of Treatment Not on file documented as of this encounter Visit Diagnoses Not on filedocumented in this encounter Care Teams Four Roll Calender Operator Relationship Specialty Start Date End Date Matheus Boggs MD [address] [facility] [address] [place] [phone] PCP - General Family Medicine 09/05/22 documented as of this encounter
--- OUTSIDE RECORDS SUMMARY | 2025-03-02 10:56 | XMS_ITS | Encounter Summary ---
Author Organization [employer] ([place], [place], [place], [place]) Address [address] [place] [address] Care Team Providers Care Core Shaper Sides Name Role Phone Matheus Boggs MD Primary Care Provider + [phone] Encounter Details Date Type Department Care Team (Late st Contact Info) Description 01/13/2020 Transcribed Document [facility] [place] Family [place] [facility] [place] [address] ProviderCristopher MD [address] [place] [address] Social History Tobacco Use Types [...] Conversion Note - Cristopher ProviderMD - 01/13/2020 10:05 AM CDT PAT Adult Entered On: 01/13/2020 10:21 EDT Performed On: 01/13/2020 10:05 EDT by FAROOQ SAVAGE RN Vital Measurements Temperature Source : Temporal artery scanning Temperature Mode : Fahrenheit Temperature, Fahrenheit : 97 Deg F Clinical Temperature, C : 36.1 Deg C Pulse Method : Pulse Oximetry Peripheral Pulse Rate : 66 bpm Systolic Blood Pressure : 150 mmHg (HI) Diastolic Blood Pressure : 88 mmHg Oxygen Saturation : 95 % Oxygen Therapy Mode : Room air FAROOQ SAVAGE RN - 01/13/2020 16:43 EDT Pain Assessment Pain Assessment : Initial assessment Pain Scale Goal : 6 FAROOQ SAVAGE RN - 01/13/2020 10:05 EDT Height and Weight, Clinical Dosing Height Source : Measured Height Entry Format : [place] Height, Feet : 5 ft(Converted to: 152 cm, 60 Inch) Height, Inches : 1.5 Inch(Converted to: 0 ft 2 Inch, 3.81 cm) Clinical Height : 156.21 cm Weight Source : Standing scale Weight Entry Format : [place] Clinical Dosing Weight : 78.32 kg Weight, Pounds : 172 lb Weight, Ounces : 5 oz Body Surface Area (BSA) : 1.79 m2 Body Mass Index : 32.1 kg/m2 (HI) Richards Body Weight : 49 kg FAROOQ SAVAGE RN - 01/13/2020 10:05 EDT Health Histories Smoking Status : Never (less than 100 in lifetime; none in last 30 days) Smokeless Tobacco Status : Never FAROOQ SAVAGE RN - 01/13/2020 10:05 EDT Social History (As Of: 01/13/2020 10:21:14 EDT) Tobacco: Never (less than 100 in [...] (Last Updated: 01/13/2020 10:08:11 EDT by FAROOQ SAVAGE, RN) Infectious Disease History Date of COVID-19 test known? : Yes Date of COVID-19 Test : 01/28/2020 EDT [place] Macdonald RN - 01/31/2020 7:56 EDT Has the patient ever been tested for COVID-19? 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 : Yes Has patient been isolated since the test : No Exposed to COVID19 symptoms since test? : No [place] Macdonald RN - 01/31/2020 7:56 EDT Is this an Emergent or Add on Procedure? : No FAROOQ SAVAGE RN - 01/13/2020 10:05 EDT Anesthesia/Transfusion History Family History of Anesthesia Reaction : No prior transfusion(s) Blood Transfusion Acceptable to Patient : Yes Transfusion History : Prior anesthesia without reaction Family History of Anesthesia Reaction : None FAROOQ SAVAGE RN - 01/13/2020 10:05 EDT Functional Assessment Functional ADL Evaluation Index EBN Bathing : Independent (2) Dressing : Independent (2) Toileting : Independent (2) Transferring Bed or Chair : Independent (2) Continence : Independent (2) Feeding : Independent (2) FAROOQ SAVAGE RN - 01/13/2020 10:05 EDT ADL Index Score : 12 FAROOQ SAVAGE RN - 01/13/2020 10:05 EDT Advance Directive Copy Advance Directive Verified/on Chart : No [place] Macdonald RN - 01/31/2020 7:56 EDT Patient has Advance Directive *Q : Yes, Advance Directive not with the patient Advance Directive Type : Medical durable power of civil attorney (proxy) FAROOQ SAVAGE RN - 01/13/2020 10:05 EDT Spiritual/Cultural Needs Any Spiritual/Cultural Needs or Requests : Yes Spiritual/Cultural Needs Comment : surgery on time in to be determioned Spiritual/Cult Concerns/Desires/Needs : Prayer Spiritual/Cultural Needs Comment : surgery on y 13 time in to be determioned FAROOQ SAVAGE RN - 01/13/2020 10:05 EDT [place] Suicide Severity Rating Scale (C-SSRS) CSSRS Past Month Wish to be : No CSSRS Past Month Suicidal Thoughts : No CSSRS Lifetime Suicide Behavior : No Suicide Severity Rating Score : 0 Suicide Severity Rating : No Additional Care Required at this time FAROOQ SAVAGE RN - 01/13/2020 10:23 EDT Psychosocial History Currently in Unsafe Situation : FAROOQ Beckwith RN - 01/13/2020 10:23 EDT Education Topics, Periop Preadmission Perioperative Education Grid Arrival Time/Place : Verbalizes understanding CHG Preoperative Bathing/Cloths : Verbalizes understanding Falls : Verbalizes understanding Infection Control : Verbalizes understanding IV's : Verbalizes understanding NPO Status/Directions : Verbalizes understanding Pain Management : Verbalizes understanding Preprocedure Preparations : Verbalizes understanding Preprocedure Tests/Labs : Verbalizes understanding Remove Body Piercings : Verbalizes understanding Take/Hold Medications Pre-Procedure : Verbalizes understanding FAROOQ SAVAGE RN - 01/13/2020 10:23 EDT General Info Preferred Name : Melissa Patient Arrival Date/Time : 01/31/2020 7:01 EDT Senior Laboratory Technician Needed : MO Baird RN - 01/31/2020 7:56 EDT Arrived From : Home Mode of Arrival on Unit : Ambulatory FAROOQ SAVAGE RN - 01/13/2020 10:23 EDT Legal Guardian : Daughter, Unaccompanied [place] Macdonald RN - 01/31/2020 7:56 EDT Support Person/Patient Product Assurance Engineer : Yes Support Person/Pt Rep Name : Lili White - dtr Fay Reese - dtr Support Person/Pt Rep Contact Information : [phone] Want Family/Rep/Phys Notified of Admit : No Emergency Contact #1 : Lili White Emergency Contact #1 Emergency Contact #1 Relationship : dtr Emergency Contact #2 : Fay Reese Emergency Contact #2 Emergency Contact #2 Relationship : dtr Information Obtained From : Patient Primary Language : Hong Konger Preferred Communication Mode : Verbal Communication Barrier : None Objects to Sharing Info w Family : No Clinical Trials Participant *Q : None CTP, None *Q : Yes FAROOQ SAVAGE RN - 01/13/2020 10:23 EDT Mohan Scale Mohan Sensory Perception : No impairment Mohan Moisture : Rarely moist Mohan Activity : Walks occasionally Mohan Mobility : No limitation Mohan Nutrition : Adequate Mohan Friction and Shear : No apparent problem Mohan Score : 21 FAROOQ SAVAGE RN - 01/13/2020 10:23 EDT Sleep Apnea Risk Assmt Hx of [...] Sleep Apnea Risk Level Score : 3 FAROOQ SAVAGE RN - 01/13/2020 10:23 EDT documented in this encounter Plan of Treatment Not on file documented as of this encounter Visit Diagnoses Not on filedocumented in this encounter Care Teams Core Shaper Sides Relationship Specialty Start Date End Date Matheus Boggs MD [address] [place] [facility] [address] [place], [place] [phone] PCP - General Family Medicine 09/05/22 documented as of this encounter
--- OUTSIDE RECORDS SUMMARY | 2025-03-02 10:56 | XMS_ITS | Encounter Summary ---
Author Organization [employer] ([place], [place], [place], [place]) Address [address] [place] [address] Care Team Providers Care Senior Clinical Data Analyst Name Role Phone Matheus Boggs MD Primary Care Provider + [phone] Encounter Details Date Type Department Care Team (Late st Contact Info) Description 11/06/2020 Transcribed Document [facility] [place] [facility] [address] ProviderCristopher MD [address] [place] [address] Social History Tobacco Use Types Packs/Day [...] Conversion Note - Cristopher ProviderMD - 11/06/2020 12:55 PM CDT Pain Assessment Entered On: 11/06/2020 14:35 EDT Performed On: 11/06/2020 14:18 EDT by SHIRA SHARMA RN Intervention Information: oxyCODONE Performed by SHIRA SHARMA RN on 11/06/2020 13:18:00 EDT oxyCODONE,10mg Oral,Pain (Severe 7-10) Pain Assessment Pain Assessment : Follow-up assessment Pain Scale Goal : 4 Pain Scale Used : 0-10 Scale Location : Knee, left Pain Improved by Intervention : Yes SHIRA SHARMA RN - 11/06/2020 14:35 EDT Pain Scale Intensity : 5 SHIRA SHARMA RN - 11/06/2020 14:35 EDT Image 4 - Images currently included in the form version of this document have not been included in the text rendition version of the form. Electronically signed by Kee [facility] Conversion Diesel Engine Erector Cerner at 11/06/2022 1:12 PM CDT documented in this encounter Plan of Treatment Not on file documented as of this encounter Visit Diagnoses Not on filedocumented in this encounter Care Teams Senior Clinical Data Analyst Relationship Specialty Start Date End Date Matheus Boggs MD [address] [facility] [address] [place] [phone] PCP - General Family Medicine 09/05/22 documented as of this encounter
--- OUTSIDE RECORDS SUMMARY | 2025-03-02 10:56 | XMS_ITS | Encounter Summary ---
Author Organization [employer] ([place], [place], [place], [place]) Address [address] [place] [address] Care Team Providers Care Elementary School Tutor Name Role Phone Matheus Boggs MD Primary Care Provider + [phone] Encounter Details Date Type Department Care Team (Late st Contact Info) Description 11/06/2020 Transcribed Document [facility] [place] [facility] [place] [address] ProviderCristopher MD [address] [place] [address] Social History Tobacco Use Types Packs/Day [...] Cristopher ProviderMD - 11/06/2020 10:20 AM CDT [facility] Main OR PACU Summary Primary Physician: DEAN ALVA MD-ORT Finalized Date/Time: 11/06/20 12:55:13 Pt. Name: MARY WALKER D.O.B./Sex: 1945 Female Med Rec #: [id number] Physician: DEAN ALVA MD-ORT Financial #: [id number] Pt. Type: O Room/Bed: [facility]/ Admit/Disch: 11/06/20 06:53:00 - Institution: [facility] OR PACU I Case Times Entry 1 In PACU I 11/06/20 11:38:00 Ready for PACU 11/06/20 12:38:00 Discharge Discharge from PACU 11/06/20 12:38:00 I Last Modified By: Michelle Chawla Rn 11/06/20 12:52:56 Finalized By: Michelle Chawla, Rn Document Signatures Signed By: Michelle Chawla Rn 11/06/20 12:55 Electronically signed by Kee [facility] Conversion Pattern Cleaner Cerner at 11/06/2022 1:11 PM CDT documented in this encounter Plan of Treatment Not on file documented as of this encounter Visit Diagnoses Not on filedocumented in this encounter Care Teams Elementary School Tutor Relationship Specialty Start Date End Date Matheus Boggs MD [address] [facility] [address] [place] [phone] PCP - General Family Medicine 09/05/22 documented as of this encounter
--- OUTSIDE RECORDS SUMMARY | 2025-03-02 10:56 | XMS_ITS | Encounter Summary ---
Author Organization [employer] ([place], [place], [place], [place]) Address [address] [place] [address] Care Team Providers Care Collar Sewer Name Role Phone Matheus Boggs MD Primary Care Provider + [phone] Encounter Details Date Type Department Care Team (Late st Contact Info) Description 01/31/2020 Transcribed Document [facility] [place] Family Medicine [address] [place] [address] ProviderCristopher MD [address] [place] [address] Social History Tobacco Use Types [...] Note - Cristopher ProviderMD - 01/31/2020 2:00 PM CDT Pain Assessment Entered On: 01/31/2020 17:10 EDT Performed On: 01/31/2020 16:16 EDT by Jaida Larios Rn Intervention Information: acetaminophen Performed by Jaida Larios Rn on 01/31/2020 15:16:00 EDT acetaminophen,1000mg Oral Pain Assessment Pain Assessment : Follow-up assessment Pain Scale Goal : 4 Pain Scale Used : 0-10 Scale Jaida Larios Rn - 01/31/2020 17:10 EDT Pain Scale Intensity : 2 Jaida Larios Rn - 01/31/2020 17:10 EDT Image 4 - Images currently included in the form version of this document have not been included in the text rendition version of the form. documented in this encounter Plan of Treatment Not on file documented as of this encounter Visit Diagnoses Not on filedocumented in this encounter Care Teams Collar Sewer Relationship Specialty Start Date End Date Matheus Boggs MD [address] [facility] [address] [place], [place] [phone] PCP - General Family Medicine 09/05/22 documented as of this encounter
--- OUTSIDE RECORDS SUMMARY | 2025-03-02 10:56 | XMS_ITS | Encounter Summary ---
Author Organization [employer] ([place], [place], [place], [place]) Address [address] [place] [address] Care Team Providers Care Auto Overhauler Name Role Phone Matheus Boggs MD Primary Care Provider + [phone] Encounter Details Date Type Department Care Team (Late st Contact Info) Description 02/07/2020 Transcribed Document [facility] [place] Family Medicine [facility] [place] [address] ProviderCristopher MD [address] [place] [address] Social History Tobacco Use Types [...] Conversion Note - Cristopher ProviderMD - 02/07/2020 3:21 PM CDT Discharge Follow Up Phone Call Entered On: 02/07/2020 15:21 EDT Performed On: 02/07/2020 15:21 EDT by Tere Carrasco RN-Navigator Discharge Follow Up Phone Call Discharge Disposition : Discharge To Care Management: Home Health Services (Related/SOC within 3 days)-06 Post Visit Phone Call History : First call, No answer Provider Follow-Up Post Discharge : Discharge Follow Up SHWETA DANGELO PA-ORT - 03:30 PM Previously Documented Skilled Nursing Patient Stated Goal : No Patient Stated Goal Tere Carrasco RN-Navigator - 02/07/2020 15:21 EDT documented in this encounter Plan of Treatment Not on file documented as of this encounter Visit Diagnoses Not on filedocumented in this encounter Care Teams Auto Overhauler Relationship Specialty Start Date End Date Matheus Boggs MD [address] [facility] [address] [place] [phone] PCP - General Family Medicine 09/05/22 documented as of this encounter
--- OUTSIDE RECORDS SUMMARY | 2025-03-02 10:56 | XMS_ITS | Encounter Summary ---
Author Organization [employer] ([place], [place], [place], [place]) Address [address] [place] [address] Care Team Providers Care Bio Medical Technician Name Role Phone Matheus Boggs MD Primary Care Provider + [phone] Encounter Details Date Type Department Care Team (Late st Contact Info) Description 02/01/2020 Transcribed Document [facility] [place] Family Medicine [facility] [address] ProviderCristopher MD [address] [place] [address] Social History Tobacco Use Types Packs/Day [...] Conversion Note - Cristopher ProviderMD - 02/01/2020 5:21 PM CDT Final Discharge Planning Entered On: 02/01/2020 17:21 EDT Performed On: 02/01/2020 17:21 EDT by NAGI TAPIA RN-Tube Cutter Operator Final Discharge Planning Discharge Arrangements : Patient [...] No Patient/Family Notified of Plan : Yes Support Person/Pt Rep Notified of Plan : Yes Is Patient Ready for Discharge? : Yes Physician Notified Patient is Ready for Discharge? : Yes Discharge To Care Management : Home Health Services (Related/SOC within 3 days)-06 NAGI TAPIA RN-Tube Cutter Operator - 02/01/2020 17:21 EDT documented in this encounter Plan of Treatment Not on file documented as of this encounter Visit Diagnoses Not on filedocumented in this encounter Care Teams Bio Medical Technician Relationship Specialty Start Date End Date Matheus Boggs MD [address] [facility] [address] [place] [phone] PCP - General Family Medicine 09/05/22 documented as of this encounter
--- OUTSIDE RECORDS SUMMARY | 2025-03-02 10:56 | XMS_ITS | Referral Summary ---
Author Organization [employer] ([place], [place], [place], [place]) Address [address] [place] [address] Care Team Providers Care Hearing Aid Mechanic Name Role Phone Matheus Boggs MD Primary Care Provider [phone] Allergies Active Allergy Reactions Criticality Noted Date Comments Aspirin 10/04/2013 Sulfamethoxazole-Trimethoprim 2014 Codeine Phosphate 10/04/2013 Nsaids (Non-Steroidal Anti-I nflammatory Drug) 10/04/2013 Oxycodone 10/04/2013 Penicillin 10/04/2013 Oxycodone-Aspirin 10/04/2013 Tihvgzc-Lid-Cai Reductase Inhibitors 10/04/2013 Sulfa (Sulfonamide Antibiotics) 09/18 [...] abnormal study. Mild anterior reversibility. EF 81%. [facility] 03/03/2012: Patent coronaries. Mild CAD. EF 55% [...] Date Dakotah rded Speak language other than Maltese at home Not on file 08/08/2023 Want [...] 09/09/2022 10:35 AM EST Plan of Treatment Not on file Insurance MEDICARE PART A B [facility] MCR SUPP [facility] HEALTH CLAIMS Care Teams Hearing Aid Mechanic Relationship Specialty Start Date End Date Matheus Boggs MD [address] [facility] [address] [place] [phone] PCP - General Family Medicine 09/05/22
--- OUTSIDE RECORDS SUMMARY | 2025-03-02 10:56 | XMS_ITS | Encounter Summary ---
Author Organization [employer] ([place], [place], [place]) Address [address] [place] [address] Care Team Providers Care Towboat Pilot Name Role Phone Matheus Boggs MD Primary Care Provider + [phone] Encounter Details Date Type Department Care Team (Late st Contact Info) Description 10/09/2020 Transcribed Document [facility] [place] [facility] [place] [address] ProviderCristopher MD [address] [place] [address] Social History Tobacco Use Types [...] Cerner Conversion Note - Cristopher ProviderMD - 10/09/2020 2:04 PM CDT Total Joints Assessment Entered On: 11/28/2020 14:04 EDT Performed On: 10/09/2020 14:04 EDT by Tere Carrasco RN-Navigator JR. JESSY Knee Survey 1. How severe is your knee stiffness after first wakening in the morning? : Severe 2. Twisting/pivoting on your knee : Moderate 3. Straightening knee fully : Moderate 4. Going up or down stairs : Severe 5. Standing upright : Severe 6. Rising from sitting : Severe 7. Bending to floor/orange picker an object : Moderate JESSY JR Raw Score (ref) : 18 Tere Carrasco RN-Navigator - 11/28/2020 14:04 EDT PROMIS Global Health Scale In general, [...] with your social activities and relationships? : Fair In general, please rate how well you carry out your usual social activities and roles. (This includes activities at home, at work and in your community, and responsibilities as a parent, child, spouse, employee, friend, etc.) : Fair To what extent are you able to carry out your everyday physical activities such as walking, climbing stairs, carrying groceries, or moving a chair? : Moderately How often have you been bothered by emotional problems such as feeling anxious, depressed or irritable? : Rarely How would you rate your fatigue on average? : Mild How would you rate your pain on average? : 5 Global Physical Health Score (ref) : 13 Global Mental Health Score (ref) : 12 Tere Carrasco RN-Navigator - 11/28/2020 14:04 EDT documented in this encounter Plan of Treatment Not on file documented as of this encounter Visit Diagnoses Not on filedocumented in this encounter Care Teams Towboat Pilot Relationship Specialty Start Date End Date Matheus Boggs MD [address] [place] [facility] [address] [place] [phone] PCP - General Family Medicine 09/05/22 documented as of this encounter
--- OUTSIDE RECORDS SUMMARY | 2025-03-02 10:57 | XMS_ITS | Encounter Summary ---
Author Organization [employer] ([place], [place], [place], [place]) Address [address] [place] [address] Care Team Providers Care Disease Case Manager Rn Name Role Phone Matheus Boggs MD Primary Care Provider + [phone] Encounter Details Date Type Department Care Team (Late st Contact Info) Description 11/06/2020 Transcribed Document [facility] [place] [address] ProviderCristopher MD [address] [place] [address] Social History Tobacco Use Types Packs/Day [...] Cristopher ProviderMD - 11/06/2020 12:55 PM CDT Education-(VTE) / (DVT) Entered On: 11/06/2020 14:34 EDT Performed On: 11/06/2020 12:55 EDT by SHIRA SHARMA RN Teaching/Learning Assessment Barriers To Learning : None evident Learning Style Preferences Patient : Printed materials, Verbal explanation Learning Style Preferences Family : Printed materials, Verbal explanation SHIRA SHARMA RN - 11/06/2020 14:32 EDT Education Topics: VTE/DVT Education Topics: VTE/DVT VTE/DVT prophylaxis : Verbalizes understanding Sequential Compression Device : Verbalizes understanding Risk for developing a VTE : Verbalizes understanding SHIRA SHARMA RN - 11/06/2020 14:32 EDT Electronically signed by Kee, [facility] Conversion Sole Molding Machine Operator Cerner at 11/06/2022 12:55 PM CDT documented in this encounter Plan of Treatment Not on file documented as of this encounter Visit Diagnoses Not on filedocumented in this encounter Care Teams Disease Case Manager Rn Relationship Specialty Start Date End Date Matheus Boggs MD [address] [facility] [address] [place] [phone] PCP - General Family Medicine 09/05/22 documented as of this encounter
--- OUTSIDE RECORDS SUMMARY | 2025-03-02 10:57 | XMS_ITS | Encounter Summary ---
Author Organization [employer] ([place], [place], [place], [place]) Address [address] [place] [address] Care Team Providers Care Sales Order Processor Name Role Phone Matheus Boggs MD Primary Care Provider + [phone] Encounter Details Date Type Department Care Team (Late st Contact Info) Description 11/06/2020 Transcribed Document [facility] [place] Family Medicine [facility] [place] [address] ProviderCristopher MD [address] [place] [address] Social History Tobacco Use Types Packs/Day Years Used Date Smoking Tobacco: Never Assessed Comments Unknown Sex and Gender Information Value Date Recorded Sex Assigned at Female 12/04/2023 11:21 PM CDT Legal Sex Female 7:28 PM CDT Gender Identity Female 12/04/2023 11:21 PM CDT Sexual Orientation Not on file documented as of this encounter Miscellaneous Notes * Pollo Conversion Note - Cristopher ProviderMD - 11/06/2020 9:09 AM CDT Peripheral Nerve Block Entered On: 11/06/2020 9:11 EDT Performed On: 11/06/2020 9:09 EDT by BERTRAND BARRIENTOS RN Peripheral Nerve Block Peripheral Nerve Block Start Date/Time : 11/06/2020 8:50 EDT Verbally Confirm Pt, Site, and Procedure : Yes Time Out Pause Time : 11/06/2020 8:49 EDT Site Marked and Visible : Yes Site Preparation : Chlorhexidine (Hibiclens) Peripheral Nerve Block : Sciatic, Adductor Canal Laterality : Bilateral Peripheral Nerve Block Performed by : JORGE A MUÑIZ MD-ANS Medication Delivery Method : Continuous Peripheral Nerve Block Assisted by : YOVANNY ARELLANO Peripheral Nerve Block Assisted by 2 : BERTRAND BARRIENTOS RN Ultra sound used during insertion : Yes Nerve Block Activity, Patient Tolerance : Good Peripheral Nerve Block End Date/Time : 11/06/2020 9:10 EDT BERTRAND BARRIENTOS RN - 11/06/2020 9:09 EDT Electronically signed by [facility] Conversion Accountant Certified Public Cerner at 11/06/2022 12:55 PM CDT documented in this encounter Plan of Treatment Not on file documented as of this encounter Visit Diagnoses Not on filedocumented in this encounter Care Teams Sales Order Processor Relationship Specialty Start Date End Date Matheus Boggs MD [address] [facility] [address] [place] [phone] PCP - General Family Medicine 09/05/22 documented as of this encounter
--- OUTSIDE RECORDS SUMMARY | 2025-03-02 10:57 | XMS_ITS | Encounter Summary ---
Author Organization [employer] ([place], [place], [place], [place]) Address [address] [place] [address] Care Team Providers Care Tree Doctor Name Role Phone Matheus Boggs MD Primary Care Provider + [phone] Encounter Details Date Type Department Care Team (Late st Contact Info) Description 11/01/2020 Transcribed Document [facility] [place] Family Medicine [facility] [address] ProviderCristopher MD [address] [place] [address] Social History Tobacco Use Types Packs/Day [...] Cerner Conversion Note - Cristopher ProviderMD - 11/01/2020 1:07 PM CDT Orthopedic Nurse Navigator Entered On: 11/01/2020 13:09 EDT Performed On: 11/01/2020 13:07 EDT by Tere Carrasco RN-Navigator Orthopedic Nurse Navigator Assessment Joint Navigator Assessment Note : Prereferral for Violeta PT sent yesterday. Tere Carrasco RN-Navigator - 11/01/2020 13:07 EDT Electronically signed by Kee [facility] Conversion Plant Operations Worker Cerner at 11/06/2022 12:55 PM CDT documented in this encounter Plan of Treatment Not on file documented as of this encounter Visit Diagnoses Not on filedocumented in this encounter Care Teams Tree Doctor Relationship Specialty Start Date End Date Matheus Boggs MD [address] [place] [facility] [address] [place] [phone] PCP - General Family Medicine 09/05/22 documented as of this encounter
--- OUTSIDE RECORDS SUMMARY | 2025-03-02 10:57 | XMS_ITS | Encounter Summary ---
Author Organization [employer] ([place], [place], [place], [place]) Address [address] [place] [address] Care Team Providers Care History Card Clerk Name Role Phone Matheus Boggs MD Primary Care Provider + [phone] Encounter Details Date Type Department Care Team (Late st Contact Info) Description 11/01/2020 Transcribed Document [facility] [place] [facility] [place] [address] ProviderCristopher MD [address] [place] [address] Social History Tobacco Use Types Packs/Day [...] Conversion Note - Cristopher ProviderMD - 11/01/2020 2:30 PM CDT UM Authorization Entered On: 11/01/2020 14:31 EDT Performed On: 11/01/2020 14:30 EDT by JOSH MALIK, Hotel Director Primary Insurance Authorization Authorization and Policy Numbers : Insurance 1 Health Plan: MEDICARE Policy Number: [id number] Authorization Number: Insurance 2 Health Plan: AARP N Policy Number: [id number] Authorization Number: Insurance Primary Name : Medicare Authorization Status-Primary : No precert required Authorization Number-Primary : NPR for Medicare Authorized Service Begin Date-Primary : 11/06/2020 EDT Authorization Comments-Primary : Pt is brunilda for OUT PT total knee replacement on Friday11-06-20 Medicare: NPR Historical Authorization Comments-Primary : No Authorization Comments Found JOSH MALIK, Hotel Director - 11/01/2020 14:30 EDT Secondary Insurance Authorization Authorization and Policy Numbers : Insurance 1 Health Plan: MEDICARE Policy Number: [id number] Authorization Number: Insurance 2 Health Plan: AARP N Policy Number: [id number] Authorization Number: Insurance Secondary Name : AARP Authorized Service Begin Date-Secondary : 11/06/2020 EDT Historical Authorization Comments-Secondary : No Authorization Comments Found JOSH MALIK, Hotel Director - 11/01/2020 14:30 EDT Electronically signed by Kee [facility] Conversion Bender Machine Operator Cerner at 11/06/2022 12:50 PM CDT documented in this encounter Plan of Treatment Not on file documented as of this encounter Visit Diagnoses Not on filedocumented in this encounter Care Teams History Card Clerk Relationship Specialty Start Date End Date Matheus Boggs MD [address] [place] [facility] [address] [place] [phone] PCP - General Family Medicine 09/05/22 documented as of this encounter
--- OUTSIDE RECORDS SUMMARY | 2025-03-02 10:57 | XMS_ITS | Encounter Summary ---
Author Organization [employer] ([place], [place], [place], [place]) Address [address] [place] [address] Care Team Providers Care Low Emission Automobile Designer Name Role Phone Matheus Boggs MD Primary Care Provider + [phone] Encounter Details Date Type Department Care Team (Late st Contact Info) Description 11/06/2020 Transcribed Document [facility] [place] [address] ProviderCristopher MD [address] [place] [address] Social History Tobacco Use Types Packs/Day [...] Conversion Note - Historical ProviderMD - 11/06/2020 5:00 PM CDT Chart Check - Review Order Profile Entered On: 11/06/2020 17:10 EDT Performed On: 11/06/2020 17:00 EDT by SHIRA SHARMA RN Chart Check Powerplans Initiated/Discontinued as Appropriate : Yes All Active Orders Reviewed : Yes SHIRA SHARMA RN - 11/06/2020 17:09 EDT Electronically signed by Kee [facility] Conversion Temporary Office Assistant Cerner at 11/06/2022 12:53 PM CDT documented in this encounter Plan of Treatment Not on file documented as of this encounter Visit Diagnoses Not on filedocumented in this encounter Care Teams Low Emission Automobile Designer Relationship Specialty Start Date End Date Matheus Boggs MD [address] [place] [facility] [address] [place] [phone] PCP - General Family Medicine 09/05/22 documented as of this encounter
--- OUTSIDE RECORDS SUMMARY | 2025-03-02 10:57 | XMS_ITS | Encounter Summary ---
Author Organization [employer] ([place], [place], [place], [place]) Address [address] [place] [address] Care Team Providers Care Central Lab Technician Name Role Phone Matheus Boggs MD Primary Care Provider + [phone] Encounter Details Date Type Department Care Team (Late st Contact Info) Description 11/06/[address] [facility] [place] Family Medicine [facility] [place] [address] ProviderCristopher MD [address] [place] [address] Social History Tobacco Use Types Packs/Day [...] Conversion Note - Cristopher ProviderMD - 11/06/2020 12:43 PM CDT Meds to Bed Enrollment Entered On: 11/06/2020 14:26 EDT Performed On: 11/06/2020 12:43 EDT by Kenya Schmitz, Pharmacist Meds to Bed Enrollment Patient Enrollment Decision: : Yes/enroll in meds to bed program Kenya Schmitz, Pharmacist - 11/06/2020 14:26 EDT Electronically signed by Kee [facility] Conversion Analog Design Engineer Cerner at 11/06/2022 12:47 PM CDT documented in this encounter Plan of Treatment Not on file documented as of this encounter Visit Diagnoses Not on filedocumented in this encounter Care Teams Central Lab Technician Relationship Specialty Start Date End Date Matheus Boggs MD [address] [place] [facility] [address] [place] [phone] PCP - General Family Medicine 09/05/22 documented as of this encounter
--- OUTSIDE RECORDS SUMMARY | 2025-03-02 10:57 | XMS_ITS | Encounter Summary ---
Author Organization [employer] ([place], [place], [place], [place]) Address [address] [place] [address] Care Team Providers Care Career Consultant Name Role Phone Matheus Boggs MD Primary Care Provider + [phone] Encounter Details Date Type Department Care Team (Late st Contact Info) Description 11/06/2020 Transcribed Document [facility] [place] [address] ProviderCristopher MD [address] [place] [address] Social History Tobacco Use Types Packs/Day [...] Conversion Note - Cristopher ProviderMD - 11/06/2020 6:52 AM CDT Admission History, Adult Entered On: 11/06/2020 14:05 EDT Performed On: 11/06/2020 14:00 EDT by SHIRA SHARMA RN Advance Directive Patient has Advance Directive *Q : No, patient refuses Advance Directive information SHIRA SHARMA RN - 11/06/2020 13:58 EDT Anesthesia/Transfusion History Family History of Anesthesia Reaction : No prior transfusion(s) Blood Transfusion Acceptable to Patient : Yes Transfusion History : Prior anesthesia without reaction Family History of Anesthesia Reaction : None SHIRA SHARMA RN - 11/06/2020 13:58 EDT Education Topics, Admission Orientation DCP GENERIC CODE Assessment/Vital Signs : Verbalizes understanding Bed Control : Verbalizes understanding Call Light : Verbalizes understanding Diet/Room Service : Verbalizes understanding Fall Prevention : Verbalizes understanding Orientation to Room/Bathroom : Verbalizes understanding Patient Safety : Verbalizes understanding Rounding : Verbalizes understanding Television/Phone : Verbalizes understanding Visiting Policy : Verbalizes understanding SHIRA SHARMA RN - 11/06/2020 13:58 EDT Functional Assessment Living Situation : Home Current Home Treatments : None Home Equipment : Commode, Walker Professional Skilled Services : None Special Services and Community Resources : None SHIRA SHARMA RN - 11/06/2020 13:58 EDT General Info Preferred Name : Melissa Arrived From : Home Mode of Arrival on Unit : Ambulatory Legal Guardian : Daughter Support Person/Patient Rn Womens Health : Yes Support Person/Pt Rep Name : Bibiana Montelongo dtr Support Person/Pt Rep Contact Information : [phone] Bibiana Edmond Family/Rep/Phys Notified of Admit : No Emergency Contact #1 : `SHIRA Jeter RN - 11/06/2020 13:58 EDT Emergency Contact #1 SHIRA STEEL RN - 11/06/2020 18:14 EDT Emergency Contact #1 Relationship : daughter` SHIRA SHARMA RN - 11/06/2020 13:58 EDT Emergency Contact #2 : fay Emergency Contact #2 Phone Number : `[phone] Emergency Contact #2 Relationship : `daughter SHIRA SHARMA RN - 11/06/2020 18:14 EDT Information Obtained From : Patient Primary Language : Libyan Preferred Communication Mode : Verbal Communication Barrier : None Leather Goods Ii Assembler Needed : No Objects to Sharing Info w Family : No SHIRA SHARMA RN - 11/06/2020 13:58 EDT Fall Risk Scales ABCs Fall Injury Risk Identification : Bones, Coagulation, Surgery ABC Fall Injury Risk : Moderate to high injury risk Injury Moderate to High Risk Interventions : Supervise toileting as indicated NICOLE Hx Falls Immediate/Within 3 Months : No Nicole Secondary Diagnosis : No NICOLE Use of Ambulatory Aid : Crutches/Cane/Walker NICOLE IV Therapy or IV Access : Yes Nicole Gait/Transferring : Weak Nicole Mental Status : Oriented to own ability Nicole Fall Risk Score : 45 NICOLE Fall Scale Risk Level : 25-45 Medium Risk [place] Fall Interventions : Adequate lighting, Assistive devices within reach, Bed in low position, Call device within reach, Fall prevention handout/education per facility policy, Hourly comfort/safety rounds, Non-slip footwear, Personal items within reach, Reinforced to call for assistance before getting out of bed, Room free of clutter/spills, Upper side-rails up, Wheels locked, Wires/Cords secured SHIRA SHARMA RN - 11/06/2020 13:58 EDT Fall Risk Education Grid Fall Prevention Protocol : Verbalizes understanding Symptom Reporting : Verbalizes understanding Transfer/Mobility Techniques : Verbalizes understanding Wait for Assistance : Verbalizes understanding SHIRA SHARMA RN - 11/06/2020 13:58 EDT Barriers to Learning : None evident Individuals Taught : Patient, Child Readiness to Learn : Cooperative Baseline Knowledge of Topic : Good Teaching Method : Explanation Learning Style Preferences Family : Printed materials, Verbal explanation Learning Style Preferences Patient : Printed materials, Verbal explanation Teaching Evaluation : Verbalizes understanding Fall Risk Scale Calc Temp : 0 SHIRA SHARMA RN - 11/06/2020 13:58 EDT Health Histories Smoking Status : Never (less than 100 in lifetime; none in last 30 days) Smokeless Tobacco Status : Never Implant/Device Type, Head Filter Tank Tender Helper and Model : knee replacement abdominal mesh SHIRA SHARMA RN - 11/06/2020 13:58 EDT Social History (As Of: 11/06/2020 14:05:43 EDT) Tobacco: Never (less than 100 in lifetime) Smoking Status. Never Smokeless Tobacco Status. (Last Updated: 01/13/2020 10:07:19 EDT by FAROOQ SAVAGE RN) Alcohol: Alcohol Use History No. (Last Updated: 01/13/2020 10:07:24 EDT by FAROOQ SAVAGE, RN) Substance Abuse: Drug Use Hx: No. Use in Last 12 Months: No. (Last Updated: 01/13/2020 10:07:28 EDT by FAROOQ SAVAGE RN) Height and Weight, Clinical Dosing Height Source : Measured Height Entry Format : [place] Height, Feet : 0 ft(Converted to: 0 cm, 0 Inch) Height, Inches : 60.5 Inch(Converted to: 5 ft 0 Inch, 153.67 cm) Clinical Height : 153.67 cm Weight Source : Standing scale Weight Entry Format : Scotia Clinical Dosing Weight : 80.68 kg Weight, Pounds : 177.5 lb Body Surface Area (BSA) : 1.79 m2 Body Mass Index : 34.2 kg/m2 (HI) [place] Body Weight : 46 kg SHIRA SHARMA RN - 11/06/2020 14:06 EDT Infectious Disease History Has the patient ever been tested for COVID-19? : Yes, Patient stated results Negative Where are the test results? : In EMR Results Date of COVID-19 test known? : Yes Date of COVID-19 Test : 11/03/2020 EDT Does patient have symptoms of COVID-19? 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 Influenza Immunization, Current Season : Yes SHIRA SHARMA RN - 11/06/2020 14:30 EDT Pneumococcal Vaccine Pneumonia Immunization Received : No Pneumococcal Risk Assessment < Age 65 : N/A- Patient 65 years of age or older Pneumococcal Vaccine Contraindications : No contraindications to pneumococcal vaccine Transplant Workup/Recent Transplant : No Order for Pneumococcal Vaccine : Order for pneumococcal vaccine sent to pharmacy SHIRA SHARMA RN - 11/06/2020 14:30 EDT Previous Vaccines from Immunization Schedule : No qualifying data available. SHIRA SHARMA RN - 11/06/2020 14:06 EDT Order Details Order Detail : N/A Patient Needs Meds Crushed/Liquid : No SHIRA SHARMA RN - 11/06/2020 14:06 EDT Nutrition History Feeding Ability : Independent Adaptive Feeding Equipment : None Adaptive Feeding Equipment : Regular Eating Poorly Due to Decreased Appetite : No Unplanned Weight Loss in Past 3-6 Months : No Malnutrition Screening Tool Total(mal) : 0 Malnutrition Screening Tool Risk Level : Patient not at risk SHIRA SHARMA RN - 11/06/2020 14:06 EDT [place] Suicide Severity Rating Scale (C-SSRS) CSSRS Past Month Wish to be : No CSSRS Past Month Suicidal Thoughts : No CSSRS Lifetime Suicide Behavior : No Suicide Severity Rating Score : 0 Suicide Severity Rating : No Additional Care Required at this time SHIRA SHARMA RN - 11/06/2020 14:06 EDT Psychosocial History Does Someone Depend on You for Care? : No Do You Have a History of the Following? : Patient denies history Currently in Unsafe Situation : No SHIRA SHARMA RN - 11/06/2020 14:06 EDT Sleep Apnea Risk Assmt Hx of [...] Sleep Apnea Risk Level Score : 3 SHIRA SHARMA RN - 11/06/2020 14:06 EDT Valuables and Belongings Valuables and Belongings : Clothing, Personal devices, Personal items, Medications Clothing : Outerwear Clothing Disposition : Bedside Personal Device Disposition : Bedside Personal Devices : Glasses Personal Items : Cell phone Personal Items Disposition : Bedside Medication Disposition : Other: 2 inhalers bedside Medication Brought With Patient : Yes SHIRA SHARMA RN - 11/06/2020 14:30 EDT documented in this encounter Plan of Treatment Not on file documented as of this encounter Visit Diagnoses Not on filedocumented in this encounter Care Teams Career Consultant Relationship Specialty Start Date End Date Matheus Boggs MD [address] [place] [facility] [address] [place] [address] PCP - General Family Medicine 09/05/22 documented as of this encounter
== END 2025-03-01 23:59 | disposition home or self-care (01) ==
LOC: LAB.DROPOF 03-02 10:45
PROVIDERS: PCP Nurse Practitioner; Visit Provider Nurse Practitioner
DX: H92.02 Otalgia, left ear (principal); I10 Essential (primary) hypertension
CPT/HCPCS: 80053; 85025

== ENCOUNTER 2025-03-16 10:18 | Outpatient (CLI) | payer MEDICARE, OTHER, SELFPAY ==
--- NOTE | 2025-03-16 10:23 | XR_ITS ---
FINAL REPORT CLINICAL HISTORY: BLE edema COMPARISON: 09/12/2023 FINDINGS: PA and lateral views of the chest were obtained. The cardiac and mediastinal silhouettes are within normal limits. The lungs are clear. There is no pleural effusion or pneumothorax. No acute osseous abnormality is identified. IMPRESSION: No radiographic evidence of acute cardiac or pulmonary disease. Reviewed, Interpreted and Dictated by Ave Mendiola MD Transcribed by Michelle Wilcox Authenticated and [facility]
--- OUTSIDE RECORDS SUMMARY | 2025-03-16 10:24 | XMS_ITS | Encounter Summary ---
Author Organization [employer] ([place], [place], [place], [place]) Address [address] [place] [address] Care Team Providers Care Java J2Ee Software Engineer Name Role Phone Michelet Boggs MD Primary Care Provider + [phone] Encounter Details Date Type Department Care Team (Late st Contact Info) Description 11/07/2020 Transcribed Document [facility] [place] [address] ProviderCristopher MD [address] [place] [address] Social History Tobacco Use Types Packs/Day [...] On: 11/07/2020 16:32 EDT by NAGI TAPIA RN-Music Librarian Initial Assessment I Previously Documented Living Environment : No qualifying data available. Living Situation : Home Patient Lives With : Alone Is the Patient a Caregiver at Home? : No Emergency Contact #1 : Janiya White Emergency Contact #1 ` Emergency Contact #1 Relationship : daughter` Emergency Contact #2 : fay Emergency Contact #2 Phone Number : `[phone] Emergency Contact #2 Relationship : `daughter Enter Doctors Name : MICHELET BOGGS (REF) T Does Patient have PCP Listed? : Yes NAGI TAPIA RN-Music Librarian - 11/07/2020 16:32 EDT Initial Assessment II Sensory and Motor Deficits : None Current Home Treatments and Equipment : Bedside commode, Walker Does the Patient have a Floor to SNF Benefit? : No NAGI TAPIA RN-Music Librarian - 11/07/2020 16:32 EDT Discharge Needs I Anticipated Discharge Date : 11/07/2020 EDT Anticipated Discharge To, CM : Home with home health Current Home Treatment/Equipment : Current Home Treatment/Equipment No qualifying data available. Post Acute/Home Treatments : None Documentation Status Complete : Yes NAGI TAPIA RN-Music Librarian - 11/07/2020 16:32 EDT Discharge Needs II Professional Skilled Services : Professional Skilled Services No qualifying data available. Needs Assistance with Transportation : No Discharge Options Discussed with Patient : Home Health NAGI TAPIA RN-Music Librarian - 11/07/2020 16:32 EDT Narrative Note Narrative Note : 75yo female pt s/p LTKA. Met with pt at bedside to discuss DCP. 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 Pt chose [facility] for HH again like last time. Referral sent via [employer] and confirmed acceptance and SOC tomorrow 11/08 with Ashley in intake. No other CM needs noted. NAGI TAPIA RN-Music Librarian - 11/07/2020 16:32 EDT documented in this encounter Plan of Treatment Not on file documented as of this encounter Visit Diagnoses Not on filedocumented in this encounter Care Teams Java J2Ee Software Engineer Relationship Specialty Start Date End Date Michelet Boggs MD [address] [place] [address] [place] [address] PCP - General Family Medicine 09/05/22 documented as of this encounter
--- OUTSIDE RECORDS SUMMARY | 2025-03-16 10:24 | XMS_ITS | Clinical Summary ---
Author Organization [email or web address] ([place], [place], [place], [place]) Address [address] [place] [address] Care Team Providers Care Application Spec Name Role Phone Matheus Boggs MD Primary Care Provider [phone] Allergies Active Allergy Reactions Criticality Noted Date Comments Aspirin 10/04/2013 Sulfamethoxazole-Trimethoprim 2014 Codeine Phosphate 10/04/2013 Nsaids (Non-Steroidal Anti-I nflammatory Drug) 10/04/2013 Oxycodone 10/04/2013 Penicillin 10/04/2013 Oxycodone-Aspirin 10/04/2013 Ijvximp-Whz-Wqt Reductase Inhibitors 10/04/2013 Sulfa (Sulfonamide Antibiotics) 09/18 [...] abnormal study. Mild anterior reversibility. EF 81%. [facility] 03/03/2012: Patent coronaries. Mild CAD. EF 55% [...] Date Dakotah rded Speak language other than Marshallese at home Not on file 08/08/2023 Want [...] 01/07/2027 01/07/[address] [address] [address] MCR SUPP [facility] CLAIM[facility] Care Teams Application Spec Relationship Specialty Start Date End Date Matheus Boggs MD [address] [facility] [address] [place] [address] PCP - General Family Medicine 09/05/22
--- OUTSIDE RECORDS SUMMARY | 2025-03-16 10:24 | XMS_ITS | Encounter Summary ---
Author Organization [facility] Address [address] [place] [address] Care Team Providers Care Material Control Associate Name Role Phone Devin Mendoza MD Primary Care Provider Matheus Boggs MD Primary Care Provider Mitchell Oliva MD Unavailable [phone] Encounter Details Date Type Department Care Team (Late st Contact Info) Description 02/15/2010 Abstract [facility] Physicians - Primary Care, [address] [place] [phone] Devin Mendoza MD [address] [place] [address] [place] [address] Social History Tobacco Use Types Packs/Day [...] on filedocumented in this encounter Care Teams Material Control Associate Relationship Specialty Start Date End Date Devin Mendoza MD PCP - General 04/29/08 09/13/14 Matheus Boggs MD [address] [place] [address] PCP - General Family Medicine 09/14/14 Mitchell Oliva MD [address] [place] [address] [address] [place] [address] General Surgery 07/28/22 documented as of this encounter
--- OUTSIDE RECORDS SUMMARY | 2025-03-16 10:24 | XMS_ITS | Encounter Summary ---
Author Organization [employer] ([place], [place], [place], [place]) Address [address] [place] [address] Care Team Providers Care Pier Master Name Role Phone Matheus Boggs MD Primary Care Provider + [phone] Encounter Details Date Type Department Care Team (Late st Contact Info) Description 11/07/2020 Transcribed Document [facility] [place] Medicine [facility] [place] [address] ProviderCristopher MD [address] [place] [address] Social History Tobacco Use Types Packs/Day [...] YEMI CALL RN - 11/07/2020 11:18 EDT Electronically signed by Milo Sweet Conversion [employer] Targeting Supervisor Cerner at 11/06/2022 1:13 PM CDT documented in this encounter Plan of Treatment Not on file documented as of this encounter Visit Diagnoses Not on filedocumented in this encounter Care Teams Pier Master Relationship Specialty Start Date End Date Matheus Boggs MD [address] [facility] [address] [place] [phone] PCP - General Family Medicine 09/05/22 documented as of this encounter
--- OUTSIDE RECORDS SUMMARY | 2025-03-16 10:24 | XMS_ITS | Encounter Summary ---
Author Organization [employer] ([place], [place], [place], [place]) Address [address] [place] [address] Care Team Providers Care Financial Investigator Name Role Phone Michelet Boggs MD Primary Care Provider + [phone] Encounter Details Date Type Department Care Team (Late st Contact Info) Description 02/01/2020 Transcribed Document [facility] [place] [address] [place] [address] ProviderCristopher MD [address] [place], [place] [id number] Social History Tobacco Use Types Packs/Day Years [...] Performed On: 02/01/2020 17:16 EDT by NAGI TAPIA RN-Spooling Operator Initial Assessment I Previously Documented Living Environment [...] have PCP Listed? : Yes NAGI TAPIA, RN-Spooling Operator - 02/01/2020 17:16 EDT Initial Assessment II Sensory and Motor Deficits : None Current Home Treatments and Equipment : None Does the Patient have a Floor to SNF Benefit? : No NAGI TAPIA RN-Spooling Operator - 02/01/2020 17:16 EDT Discharge Needs I Anticipated Discharge Date : 02/01/2020 EDT Anticipated Discharge To, CM : Home with home health Current Home Treatment/Equipment : Current Home Treatment/Equipment No qualifying data available. Post Acute/Home Treatments : Bedside commode, Walker Documentation Status Complete : Yes NAGI TAPIA RN-Spooling Operator - 02/01/2020 17:16 EDT Discharge Needs II Professional Skilled Services : Professional Skilled Services No qualifying data available. Needs Assistance with Transportation : No Discharge Options Discussed with Patient : DME, Home Health NAGI TAPIA RN-Spooling Operator - 02/01/2020 17:16 EDT Narrative Note Narrative Note : 74yo female pt s/p RTKA. Met with pt and daughter at bedside this am during MDR. FRW and BSC obtained from [employer] and have been delivered. Referral sent to [facility] (chose in [facility] class) via [employer] and confirmed acceptance with intake. No other CM needs identified. NAGI TAPIA RN-Spooling Operator - 02/01/2020 17:16 EDT documented in this encounter Plan of Treatment Not on file documented as of this encounter Visit Diagnoses Not on filedocumented in this encounter Care Teams Financial Investigator Relationship Specialty Start Date End Date Michelet Boggs MD [address] [facility] [address] [place] [phone] PCP - General Family Medicine 09/05/22 documented as of this encounter
--- OUTSIDE RECORDS SUMMARY | 2025-03-16 10:24 | XMS_ITS | Encounter Summary ---
Author Organization [facility] Address [address] [place] [address] Care Team Providers Care Accounts Payable Or Receivable Clerk Name Role Phone Devin Mendoza MD Primary Care Provider Matheus Boggs MD Primary Care Provider Mitchell Oliva MD Unavailable [phone] Reason for Visit * Reason Comments Medications Refill Encounter Details Date Type Department Care Team (Late st Contact Info) Description 06/26/2010 Refill [facility] Physicians - Primary Care, [address] [place] [phone] Devin Mendoza MD [address] [place] [address] [place] [address] Medications Refill Social History Tobacco Use [...] on filedocumented in this encounter Care Teams Accounts Payable Or Receivable Clerk Relationship Specialty Start Date End Date Devin Mendoza MD PCP - General 04/29/08 09/13/14 Matheus Boggs MD [address] [place] [address] PCP - General Family Medicine 09/14/14 [place] [address] [place] [address] [address] [place] [address] General Surgery 07/28/22 documented as of this encounter
--- OUTSIDE RECORDS SUMMARY | 2025-03-16 10:24 | XMS_ITS | Encounter Summary ---
Author Organization [email or web address] ([place], [place], [place], [place]) Address [address] [place] [address] Care Team Providers Care Shock Absorption Floor Layer Name Role Phone Matheus Boggs MD Primary Care Provider + [phone] Encounter Details Date Type Department Care Team (Late st Contact Info) Description 11/07/2020 Transcribed Document [facility] [place] [facility] [place] [address] ProviderCristopher MD [address] [place] [address] Social History Tobacco Use Types Packs/Day [...] Conversion Note - Cristopher ProviderMD - 11/07/2020 11:06 AM CDT UM Authorization Entered On: 11/07/2020 11:06 EDT Performed On: 11/07/2020 11:06 EDT by Susi Andino Rn-Utilization Review Primary Insurance Authorization Authorization and Policy Numbers : Insurance 1 Health Plan: MEDICARE Policy Number: [id number] Authorization Number: Insurance 2 Health Plan: AARP N Policy Number: [id number] Authorization Number: Insurance Primary Name : Medicare Authorization Status-Primary : No precert required Authorization Number-Primary : NPR for Medicare Authorized Service Begin Date-Primary : 11/06/2020 EDT Historical Authorization Comments-Primary : Comment 1: Pt is brunilda for OUT PT total knee replacement on Friday11-06-20 Medicare: NPR (JOSH MALIK, Snuff Maker 11/01/2020 14:30) Susi Andino Rn-Utilization Review - 11/07/2020 11:06 EDT Electronically signed by Kee [facility] Conversion Tank Filler Cerner at 11/06/2022 1:02 PM CDT documented in this encounter Plan of Treatment Not on file documented as of this encounter Visit Diagnoses Not on filedocumented in this encounter Care Teams Shock Absorption Floor Layer Relationship Specialty Start Date End Date Matheus Boggs MD [address] [place] [facility] [address] [place] [address] PCP - General Family Medicine 09/05/22 documented as of this encounter
--- OUTSIDE RECORDS SUMMARY | 2025-03-16 10:24 | XMS_ITS | Encounter Summary ---
Author Organization [employer] ([place], [place], [place], [place]) Address [address] [place] [address] Care Team Providers Care Yard Assistant Name Role Phone Matheus Boggs MD Primary Care Provider + [phone] Encounter Details Date Type Department Care Team (Late st Contact Info) Description 02/01/2020 Transcribed Document [facility] [place] [facility] [place] [address] ProviderCristopher MD [address] [place] [address] Social History Tobacco Use Types [...] - 02/01/2020 12:09 EDT Electronically signed by [facility] Conversion Supervisor Adult Education Cerner at 11/06/2022 12:53 PM CDT documented in this encounter Plan of Treatment Not on file documented as of this encounter Visit Diagnoses Not on filedocumented in this encounter Care Teams Yard Assistant Relationship Specialty Start Date End Date Matheus Boggs MD [address] [place] [facility] [address] [place] [address] PCP - General Family Medicine 09/05/22 documented as of this encounter
--- OUTSIDE RECORDS SUMMARY | 2025-03-16 10:24 | XMS_ITS | Encounter Summary ---
Author Organization [employer] ([place], [place], [place], [place]) Address [address] [place] [address] Care Team Providers Care Bleacher Pulp Name Role Phone Matheus Boggs MD Primary Care Provider + [phone] Encounter Details Date Type Department Care Team (Late st Contact Info) Description 11/07/2020 Transcribed Document [facility] [place] Family Medicine [facility] [place] [address] ProviderCristopher MD [address] [place] [address] Social History Tobacco Use Types Packs/Day [...] EDU BARNES, PT - 11/07/2020 12:00 EDT Electronically signed by Kee [facility] Conversion Spanish Linguist Cerner at 11/06/2022 12:49 PM CDT documented in this encounter Plan of Treatment Not on file documented as of this encounter Visit Diagnoses Not on filedocumented in this encounter Care Teams Bleacher Pulp Relationship Specialty Start Date End Date Matheus Boggs MD [address] [place] [facility] [address] [place] [address] PCP - General Family Medicine 09/05/22 documented as of this encounter
--- OUTSIDE RECORDS SUMMARY | 2025-03-16 10:24 | XMS_ITS | Encounter Summary ---
Author Organization [employer] ([place], [place], [place], [place]) Address [address] [place] [address] Care Team Providers Care Skid Strapper Name Role Phone Matheus Boggs MD Primary Care Provider + [phone] Encounter Details Date Type Department Care Team (Late st Contact Info) Description 11/07/2020 Transcribed Document [facility] [place] Family Medicine Formerly [facility] [place] [address] ProviderCristopher MD [address] [place] [address] Social History Tobacco Use Types Packs/Day [...] of Dr. Gonzalez or Dr. Arthur, call [phone] If you are a patient of Dr. German, call [phone] Nurse Navigator: Ivanna Carrasco Office: [phone]; ; available during regular business hours documented in this encounter Plan of Treatment Not on file documented as of this encounter Visit Diagnoses Not on filedocumented in this encounter Care Teams Skid Strapper Relationship Specialty Start Date End Date Matheus Boggs MD [facility] [address] [place] [address] PCP - General Family Medicine 09/05/22 documented as of this encounter
--- OUTSIDE RECORDS SUMMARY | 2025-03-16 10:24 | XMS_ITS | Encounter Summary ---
Author Organization [employer] ([place], [place], [place], [place]) Address [address] [place] [address] Care Team Providers Care Coil Binder Name Role Phone Matheus Boggs MD Primary Care Provider + [phone] Encounter Details Date Type Department Care Team (Late st Contact Info) Description 11/07/2020 Transcribed Document [facility] [place] Family [place] [facility] [place] [address] ProviderCristopher MD [address] [place] [address] Social History Tobacco Use Types Packs/Day [...] on filedocumented in this encounter Care Teams Coil Binder Relationship Specialty Start Date End Date Matheus Boggs MD 1210 [facility] [address] [place] [phone] PCP - General Family Medicine 09/05/22 documented as of this encounter
--- OUTSIDE RECORDS SUMMARY | 2025-03-16 10:24 | XMS_ITS | Encounter Summary ---
Author Organization [employer] ([place], [place], [place]) Address [address] [place] [address] Care Team Providers Care Communications Coordinator Name Role Phone Matheus Boggs MD Primary Care Provider + [phone] Encounter Details Date Type Department Care Team (Late st Contact Info) Description 11/14/2020 Transcribed Document [facility] [place] [facility] [place] [address] ProviderCristopher MD [address] [place] [address] Social History Tobacco Use Types Packs/Day [...] DANGELO PA-ORT - 03:00 PM Previously Documented Rn Lvn Patient Stated Goal : No Patient Stated [...] on filedocumented in this encounter Care Teams Communications Coordinator Relationship Specialty Start Date End Date Matheus Boggs MD 12[address] [place] [facility] [address] [place] [phone] PCP - General Family Medicine 09/05/22 documented as of this encounter
--- OUTSIDE RECORDS SUMMARY | 2025-03-16 10:24 | XMS_ITS | Encounter Summary ---
Author Organization [email or web address] ([place], [place], [place], [place]) Address [address] [place] [address] Care Team Providers Care House Fellow Name Role Phone Matheus Boggs MD Primary Care Provider + [phone] Encounter Details Date Type Department Care Team (Late st Contact Info) Description 11/07/2020 Transcribed Document [address] [address] Chris Keyes MD [address] [place] [address] Social History Tobacco Use Types Packs/Day Years [...] is a 75 yo female admitted to [facility] per Dr. Gonzalez for a left total [...] her. Denies prior stroke or seizure. Denies [place], CHF or cardiac arrhythmia. Denies DM. Denies [...] Daily Arnuity Ellipta 100 mcg, PRN, Inhalation, [id number] aspirin 81 mg oral delayed release tablet 81 mg = 1 Tab, Oral, BID cefadroxil 500 mg oral capsule 500 mg = 1 Cap, Oral, Q12H Colace 100 mg oral capsule 100 mg = 1 Cap, PRN, Oral, BID fexofenadine 180 mg, Oral, Daily fluticasone 50 mcg/inh nasal spray 2 [place], PRN, Nasal, BID hydrochlorothiazide-irbesartan 12.5 mg-150 mg [...] on filedocumented in this encounter Care Teams House Fellow Relationship Specialty Start Date End Date Matheus Boggs MD 12[address] [place] [facility] [address] [place] [address] PCP - General Family Medicine 09/05/22 documented as of this encounter
--- OUTSIDE RECORDS SUMMARY | 2025-03-16 10:24 | XMS_ITS | Encounter Summary ---
Author Organization [employer] ([place], [place], [place], [place]) Address [address] [place] [address] Care Team Providers Care Market Stall Vendor Name Role Phone Matheus Boggs MD Primary Care Provider + [phone] Encounter Details Date Type Department Care Team (Late st Contact Info) Description 11/07/2020 Transcribed Document [facility] [place] Medicine [facility] [place] [address] ProviderCristopher MD [address] [place] [address] Social History Tobacco Use Types Packs/Day [...] the form. Electronically signed by Kee [facility] Conversion Staying Machine Operator Cerner at 11/06/2022 1:11 PM CDT documented in this encounter Plan of Treatment Not on file documented as of this encounter Visit Diagnoses Not on filedocumented in this encounter Care Teams Market Stall Vendor Relationship Specialty Start Date End Date Matheus Boggs MD [address] [place] [address] [place] [address] PCP - General Family Medicine 09/05/22 documented as of this encounter
--- OUTSIDE RECORDS SUMMARY | 2025-03-16 10:24 | XMS_ITS | Encounter Summary ---
Author Organization [employer] ([place], [place], [place], [place]) Address [address] [place] [address] Care Team Providers Care Hoister Name Role Phone Matheus Boggs MD Primary Care Provider + [phone] Encounter Details Date Type Department Care Team (Late st Contact Info) Description 11/07/2020 Transcribed Document [facility] [facility] [place] [address] ProviderCristopher MD [address] [place] [address] Social History Tobacco Use Types Packs/Day [...] On: 11/07/2020 16:35 EDT by NAGI TAPIA RN-Stock TurnerSpine Nurse Progress Note Discharge Arrangements : Patient Post-Acute [...] Attend Multidisciplinary Rounds? : Yes NAGI TAPIA RN-Stock Turner - 11/07/2020 16:35 EDT Electronically signed by [facility], [facility] Conversion Data Security Coordinator Cerner at 11/06/2022 1:02 PM CDT documented in this encounter Plan of Treatment Not on file documented as of this encounter Visit Diagnoses Not on filedocumented in this encounter Care Teams Hoister Relationship Specialty Start Date End Date Matheus Boggs MD 1210 [facility] [address] [place] [phone] PCP - General Family Medicine 09/05/22 documented as of this encounter
--- OUTSIDE RECORDS SUMMARY | 2025-03-16 10:24 | XMS_ITS | Encounter Summary ---
Author Organization [employer] ([place], [place], [place], [place]) Address [address] [place] [address] Care Team Providers Care Formula Clerk Name Role Phone Matheus Boggs MD Primary Care Provider + [phone] Encounter Details Date Type Department Care Team (Late st Contact Info) Description 11/06/2020 Transcribed Document [facility] [place] [facility] [place] [address] ProviderCristopher MD [address] [place] [address] Social History Tobacco Use Types Packs/Day [...] and pastoral prayer; Ms. Walker expressed gratitude Voodoo Preference : Gnosticist ([employer]) ERIC UNDERWOOD - 11/06/2020 16:42 EDT Electronically signed by Kee, [facility] Conversion Technical Operations Vice President Cerner at 11/06/2022 1:13 PM CDT documented in this encounter Plan of Treatment Not on file documented as of this encounter Visit Diagnoses Not on filedocumented in this encounter Care Teams Formula Clerk Relationship Specialty Start Date End Date Matheus Boggs MD 1210 [facility] [address] [place] [phone] PCP - General Family Medicine 09/05/22 documented as of this encounter
--- OUTSIDE RECORDS SUMMARY | 2025-03-16 10:24 | XMS_ITS | Encounter Summary ---
Author Organization [email or web address] ([place], [place], [place], [place]) Address [address] [place] [address] Care Team Providers Care Desktop Support Engineer Name Role Phone Matheus Boggs MD Primary Care Provider + [phone] Encounter Details Date Type Department Care Team (Late st Contact Info) Description 11/07/2020 Transcribed Document [facility] [place] [facility] [place] [address] ProviderCristopher MD [address] [place] [address] Social History Tobacco Use Types Packs/Day [...] On: 11/07/2020 14:19 EDT by YEMI CALL germination worker Documentation Discharge Date/Time : 11/07/2020 14:20 EDT [...] - 11/07/2020 14:19 EDT Electronically signed by [facility], [facility] Conversion Juvenile Counselor Cerner at 11/06/2022 1:13 PM CDT documented in this encounter Plan of Treatment Not on file documented as of this encounter Visit Diagnoses Not on filedocumented in this encounter Care Teams Desktop Support Engineer Relationship Specialty Start Date End Date Matheus Boggs MD 1210 [facility] [address] [place] [address] PCP - General Family Medicine 09/05/22 documented as of this encounter
--- OUTSIDE RECORDS SUMMARY | 2025-03-16 10:24 | XMS_ITS | Encounter Summary ---
Author Organization [employer] ([place], [place], [place], [place]) Address [address] [place] [address] Care Team Providers Care Therapist Asst Name Role Phone Matheus Boggs MD Primary Care Provider + [phone] Encounter Details Date Type Department Care Team (Late st Contact Info) Description 11/07/2020 Transcribed Document [facility] [place] [facility] [place] [address] ProviderCristopher MD [address] [place] [address] Social History Tobacco Use Types Packs/Day [...] On: 11/07/2020 16:35 EDT by NAGI TAPIA RN-Police Justice Final Discharge Planning Discharge Arrangements : Patient [...] Services (Related/SOC within 3 days)-06 NAGI TAPIA RN-Police Justice - 11/07/2020 16:35 EDT Electronically signed by Kee [facility] Conversion Eyeglass Lens Grinder Cerner at 11/06/2022 12:49 PM CDT documented in this encounter Plan of Treatment Not on file documented as of this encounter Visit Diagnoses Not on filedocumented in this encounter Care Teams Therapist Asst Relationship Specialty Start Date End Date Matheus Boggs MD 1210 [facility] [address] [place] [phone] PCP - General Family Medicine 09/05/22 documented as of this encounter
--- OUTSIDE RECORDS SUMMARY | 2025-03-16 10:24 | XMS_ITS | Encounter Summary ---
Author Organization [employer] ([place], [place], [place], [place]) Address [address] [place] [address] Care Team Providers Care Service Dismantler Name Role Phone Matheus Boggs MD Primary Care Provider + [phone] Encounter Details Date Type Department Care Team (Late st Contact Info) Description 11/07/[address] [facility] [place] Family Medicine [facility] [place] [address] ProviderCristopher MD [address] [place] [address] Social History Tobacco Use Types Packs/Day [...] on filedocumented in this encounter Care Teams Service Dismantler Relationship Specialty Start Date End Date Matheus Boggs MD [address] [place] [address] PCP - General Family Medicine 09/05/22 documented as of this encounter
--- OUTSIDE RECORDS SUMMARY | 2025-03-16 10:24 | XMS_ITS | Encounter Summary ---
Author Organization [employer] ([place], [place], [place], [place]) Address [address] [place] [address] Care Team Providers Care Head Grower Name Role Phone Michelet Boggs MD Primary Care Provider + [phone] Encounter Details Date Type Department Care Team (Late st Contact Info) Description 11/07/2020 Transcribed Document [facility] [place] [facility] [address] ProviderCristopher MD [address] [place] [address] Social History Tobacco Use Types Packs/Day [...] Cristopher ProviderMD - 11/07/2020 12:02 PM CDT [facility] [place] [address] MELSISA WALKER V :1945 Visit Time:11/06/2020 Your Visit [...] if no drainage present Home Health Services: [facility]--[phone] Please STOP taking the medication meloxicam. Discharge Follow Up Instructions: Follow-up Dr. Gonzalez 3 wks ([phone]) Follow Up Instructions: Continue SAMIA hose for 6 weeks Follow Up Instructions: Leave Aquacel dressing in place x 7-10d, then open to air. Follow-Up Appointments Follow Up with SHWETA DANGEOL PA-ORMarycarmen When 11/28/2020 03:00 PM EDT Where: [address] [place], [place] [address] [address]- Medications What How Much When Instructions Next Dose acetaminophen-oxyCODONE (Percocet 5/ 325 oral tablet) 1 Tablet(s) Oral Every 4 Hours as needed for as needed for pain not to exceed 5 tablets/ day Pickup at [facility] aspirin (aspirin 81 mg oral delayed release tablet) 1 Tablet(s) Oral Two Times A Day Pickup at [facility] at [facility] cefadroxil (cefadroxil 500 mg oral capsule) 1 Capsule(s) Oral Every 12 hours Duration: 7 Day(s) Pickup at [facility] docusate (Colace 100 mg oral capsule) 1 Capsule(s) Oral Two Times A Day as needed for for constipation Duration: 30 Day(s) Pickup at [facility] at [facility] if needed acebutolol 200 Milligram(s) Oral Two [...] (fluticasone 50 mcg/ inh nasal spray) 2 [place](s) Nasal Two Times A Day as needed for Allergies as needed hydrochlorothiazide-irbesartan (hydrochlorothiazide-irbesartan 12.5 mg-150 mg oral tablet) 1 Tablet(s) Oral Every Day in am levothyroxine (Levoxyl) 125 Microgram(s) Oral Every Day in am liothyronine 5 Microgram(s) Oral Every Day in am montelukast (Singulair) 10 Milligram(s) Oral At Bedtime [facility] nitrofurantoin (nitrofurantoin macrocrystals 50 mg oral capsule) 1 Capsule(s) Oral At Bedtime [facility] Pharmacy Information [facility] at [place]: [address] [facility] [address] [place], [place] [address] [phone] Take your medications faithfully. Do NOT skip [...] of Dr. Gonzalez or Dr. Arthur, call [phone] If you are a patient of Dr. German, call [phone] Nurse Navigator: Ivanna Carrasco Office: [phone]; ; available during regular business hours cefadroxil [...] may report side effects to FDA at 7-839-KUE-4050. What other drugs will affect cefadroxil? Other drugs may affect cefadroxil, including prescription and ezlp-rjg-terqkqw medicines, vitamins, and herbal products. Tell your [...] to ensure that the information provided by [employer]. ('[employer]') is accurate, up-to-date, and complete, but no guarantee is made to that effect. Drug information contained herein may be time sensitive. [employer] information has been compiled for use by healthcare practitioners and consumers in the [place] and therefore [employer] does not warrant that uses outside of the [place] are appropriate, unless specifically indicated otherwise. [employer] drug information does not endorse drugs, diagnose patients or recommend therapy. [employer] drug information is an informational resource designed [...] effective or appropriate for any given patient. [employer] does not assume any responsibility for any aspect of healthcare administered with the aid of information [employer] provides. The information contained herein is not intended to cover all possible uses, directions, precautions, warnings, drug interactions, allergic reactions, or adverse effects. If you have questions about the drugs you are taking, check with your doctor, nurse or pharmacist. Copyright 8662-7479 [employer]. Version: 6.03. Revision Date: 07/24/2020. aspirin (oral) [...] What is aspirin? Aspirin is a salicylate (kb-SUD-gz-ate) that is used to treat pain, and [...] may report side effects to FDA at 6-231-ZKK-4517. What other drugs will affect aspirin? Ask [...] drugs may affect aspirin, including prescription and dxbx-acd-sxencid medicines, vitamins, and herbal products. Not all [...] to ensure that the information provided by [employer]. ('[employer]') is accurate, up-to-date, and complete, but no guarantee is made to that effect. Drug information contained herein may be time sensitive. [employer] information has been compiled for use by healthcare practitioners and consumers in the [place] and therefore [employer] does not warrant that uses outside of the [place] are appropriate, unless specifically indicated otherwise. [employer] drug information does not endorse drugs, diagnose patients or recommend therapy. [employer] drug information is an informational resource designed [...] effective or appropriate for any given patient. [employer] does not assume any responsibility for any aspect of healthcare administered with the aid of information [employer] provides. The information contained herein is not intended to cover all possible uses, directions, precautions, warnings, drug interactions, allergic reactions, or adverse effects. If you have questions about the drugs you are taking, check with your doctor, nurse or pharmacist. Copyright 5277-8949 [facility]. Version: 16.. Revision Date: 03/08/2020. docusate (oral/rectal) [...] may report side effects to FDA at 1-015-MNT-5535. What other drugs will affect docusate? Other drugs may affect docusate, including prescription and vpsh-ybs-mdsrkch medicines, vitamins, and herbal products. Tell your [...] to ensure that the information provided by [employer]. ('[employer]') is accurate, up-to-date, and complete, but no guarantee is made to that effect. Drug information contained herein may be time sensitive. [employer] information has been compiled for use by healthcare practitioners and consumers in the [place] and therefore [employer] does not warrant that uses outside of the [place] are appropriate, unless specifically indicated otherwise. [employer]'s drug information does not endorse drugs, diagnose patients or recommend therapy. [employer] drug information is an informational resource designed [...] effective or appropriate for any given patient. [employer] does not assume any responsibility for any aspect of healthcare administered with the aid of information [employer] provides. The information contained herein is not intended to cover all possible uses, directions, precautions, warnings, drug interactions, allergic reactions, or adverse effects. If you have questions about the drugs you are taking, check with your doctor, nurse or pharmacist. Copyright 7267-8982 [employer]. Version: 4.01. Revision Date: 01/25/2019. acetaminophen and [...] may report side effects to FDA at 4-353-KAO-1814. What other drugs will affect acetaminophen and [...] affect acetaminophen and oxycodone, including prescription and gkca-zql-nwrwbsh medicines, vitamins, and herbal products. Not all [...] to ensure that the information provided by [employer]. ('[employer]') is accurate, up-to-date, and complete, but no guarantee is made to that effect. Drug information contained herein may be time sensitive. [employer] information has been compiled for use by healthcare practitioners and consumers in the [place] and therefore [employer] does not warrant that uses outside of the [place] are appropriate, unless specifically indicated otherwise. [employer] drug information does not endorse drugs, diagnose patients or recommend therapy. [employer] drug information is an informational resource designed [...] effective or appropriate for any given patient. [facility] does not assume any responsibility for any aspect of healthcare administered with the aid of information [facility] provides. The information contained herein is not intended to cover all possible uses, directions, precautions, warnings, drug interactions, allergic reactions, or adverse effects. If you have questions about the drugs you are taking, check with your doctor, nurse or pharmacist. Copyright 8434-0820 [facility]. Version: 20.03. Revision Date: 08/25/2020. Emergency Awareness [...] Assistance with quitting is available by contacting 2-781-OVSC-NOW. This is a free resource providing counseling, [...] range between ( 0.0 and 7.0 ) [place] #: 0.65 K/uL -- Normal range between ( 0.16 and 1.00 ) [place] #: 0.12 x10(3)/uL -- Normal range between ( 0.00 and 0.80 ) [place] %: 8.7 % -- Normal range between [...] was given the opportunity to ask questions. Patient/Fire Safety Inspector Name: Patient/Fire Safety Inspector Signature: Relationship to Patient: Clinician/Hospital Fire Safety Inspector Signature: Date: documented in this encounter Plan of Treatment Not on file documented as of this encounter Visit Diagnoses Not on filedocumented in this encounter Care Teams Head Grower Relationship Specialty Start Date End Date Michelet Boggs MD 1210 [facility] [address] [place] [address] PCP - General Family Medicine 09/05/22 documented as of this encounter
--- OUTSIDE RECORDS SUMMARY | 2025-03-16 10:24 | XMS_ITS | Encounter Summary ---
Author Organization [employer] ([place], [place], [place], [place]) Address [address] [place] [address] Care Team Providers Care Handle Finisher Name Role Phone Matheus Boggs MD Primary Care Provider + [phone] Encounter Details Date Type Department Care Team (Late st Contact Info) Description 11/07/2020 Transcribed Document [facility] [place] [facility] [place] [address] ProviderCristopher MD [address] [place] [address] Social History Tobacco Use Types Packs/Day [...] Daily Arnuity Ellipta 100 mcg, PRN, Inhalation, [id number] aspirin 81 mg oral delayed release tablet 81 mg = 1 Tab, Oral, BID cefadroxil 500 mg oral capsule 500 mg = 1 Cap, Oral, Q12H Colace 100 mg oral capsule 100 mg = 1 Cap, PRN, Oral, BID fexofenadine 180 mg, Oral, Daily fluticasone 50 mcg/inh nasal spray 2 [place], PRN, Nasal, BID hydrochlorothiazide-irbesartan 12.5 mg-150 mg [...] [place]. Pending Labs In Process SENDOUT REPORT [id number], [id number], RT - Routine, 11/06/20 11:08:00 EDT Pathology Tissue Request [id number], [id number], 11/06/20 11:08:00 EDT, Collected, RT - Routine, [...] on filedocumented in this encounter Care Teams Handle Finisher Relationship Specialty Start Date End Date Matheus Boggs MD [address] [place] [phone] PCP - General Family Medicine 09/05/22 documented as of this encounter
--- OUTSIDE RECORDS SUMMARY | 2025-03-16 10:25 | XMS_ITS | Encounter Summary ---
Author Organization [facility] Address [address] [place] [address] Care Team Providers Care Professor Of Surgery Name Role Phone Devin Mendoza MD Primary Care Provider Matheus Boggs MD Primary Care Provider Mitchell Oliva MD Unavailable [phone] Encounter Details Date Type Department Care Team (Late st Contact Info) Description 07/29/2013 Orders Only [facility] Physicians - Primary Care, [address] [place] [phone] Devin Mendoza MD [address] [place] [address] [place] [address] Social History Tobacco Use Types Packs/Day [...] Procedure Name Priority Date/Time Associated Diagnosis Comments CT ECG ROUTINE ECG W/LEAST 1 2 LDS W/I&R Routine 09/17/2007 documented in this encounter Results * EKG/ELECTROCARDIOGRAM, COMPLETE (09/17/2007) us Devin Mendoza MD CT CARDIOVASCULAR SYSTEM SER VICES Final Result [facility] [address] [place] [address] documented in this encounter Visit Diagnoses Not on filedocumented in this encounter Care Teams Professor Of Surgery Relationship Specialty Start Date End Date Devin Mendoza MD PCP - General 04/29/08 09/13/14 Matheus Boggs MD [address] [place] [address] PCP - General Family Medicine 09/14/14 [place] [address] [place] [address]. [address] [place] [address] General Surgery 07/28/22 documented as of this encounter
--- OUTSIDE RECORDS SUMMARY | 2025-03-16 10:25 | XMS_ITS | Encounter Summary ---
Author Organization [employer] ([place], [place], [place], [place]) Address [address] [place] [address] Care Team Providers Care Sheet Catcher Name Role Phone Matheus Boggs MD Primary Care Provider + [phone] Encounter Details Date Type Department Care Team (Late st Contact Info) Description 01/13/2020 Transcribed Document [facility] [place] Family Medicine [address] [place] [address] ProviderCristopher MD [address] [place], [place] [phone] Social History Tobacco Use Types Packs/Day Years [...] from sitting : Severe 7. Bending to floor/knot picker cloth an object : Moderate JESSY SÁNCHEZ Raw [...] on filedocumented in this encounter Care Teams Sheet Catcher Relationship Specialty Start Date End Date Matheus Boggs MD [address] [facility] [address] [place] [phone] PCP - General Family Medicine 09/05/22 documented as of this encounter
--- OUTSIDE RECORDS SUMMARY | 2025-03-16 10:25 | XMS_ITS | Encounter Summary ---
Author Organization [employer] ([place], [place], [place], [place]) Address [address] [place] [address] Care Team Providers Care Raw Finish Mill Operator Name Role Phone Matheus Boggs MD Primary Care Provider + [phone] Encounter Details Date Type Department Care Team (Late st Contact Info) Description 02/07/2020 Transcribed Document [facility] [place] [address] [place] [address] ProviderCristopher MD [address] [place], [place] [phone] Social History Tobacco Use Types Packs/Day Years [...] Tere Carrasco RN-Navigator - 02/07/2020 15:20 EDT documented in this encounter Plan of Treatment Not on file documented as of this encounter Visit Diagnoses Not on filedocumented in this encounter Care Teams Raw Finish Mill Operator Relationship Specialty Start Date End Date Matheus Boggs MD [address] [facility] [address] [place] [phone] PCP - General Family Medicine 09/05/22 documented as of this encounter
--- OUTSIDE RECORDS SUMMARY | 2025-03-16 10:25 | XMS_ITS | Encounter Summary ---
Author Organization [employer] ([place], [place], [place], [place]) Address [address] [place] [address] Care Team Providers Care Truck And Transport Mechanic Name Role Phone Matheus Boggs MD Primary Care Provider + [phone] Encounter Details Date Type Department Care Team (Late st Contact Info) Description 01/31/2020 Transcribed Document [facility] [place] Family Medicine [address] [place] [address] ProviderCristopher MD [address] [place] [address] Social History Tobacco Use Types [...] on filedocumented in this encounter Care Teams Truck And Transport Mechanic Relationship Specialty Start Date End Date Matheus Boggs MD [address] [facility] [address] [place], [place] [phone] PCP - General Family Medicine 09/05/22 documented as of this encounter
--- OUTSIDE RECORDS SUMMARY | 2025-03-16 10:25 | XMS_ITS | Encounter Summary ---
Author Organization [employer] ([place], [place]) Address [address] [place] [address] Care Team Providers Care Balancing Machine Operator Name Role Phone Matheus Boggs MD Primary Care Provider + [phone] Encounter Details Date Type Department Care Team (Late st Contact Info) Description 01/31/2020 Transcribed Document [facility] [place] Family Medicine [facility] [place] [address] ProviderCristopher MD [address] [place] [address] Social History Tobacco Use Types Packs/Day [...] Cristopher ProviderMD - 01/31/2020 10:35 AM CDT [facility] Main OR IntraOp Summary Primary Physician: DEAN ALVA MD-ORT Finalized Date/Time: 02/01/20 09:34:27 Pt. Name: MELISSA SIMON/Sex: 1945 Female Med Rec #: [id number] Physician: DEAN ALVA MD-ORT Financial #: [id number] Pt. Type: O Room/Bed: 64/ Admit/Disch: 01/31/20 10:45:00 - Institution: [facility] IntraOp Case Attendance Entry 1 Entry 2 Entry 3 Case Attendee DEAN ALVA Nichols, Tanya, ANITA HE CSA MD-ORT Role Performed Surgeon/Proceduralist, Scrub, Consumer Insights Specialist, First First Time In 01/31/20 10:07:00 01/31/20 [...] Eulalia Pierce Crna OTHER, ATTENDEE Role Performed Lamp Decorator, First BOWLING BALL ENGRAVER/Nurse Application Design Engineer Student Time In 01/31/20 10:07:00 01/31/20 10:07:00 [...] OTHER, ATTENDEE #1 HERMINIA RAINES SCHNELLE, JENNIFER, SALARY AND WAGE ADMINISTRATOR -ANS Role Performed Vendor Anesthesiologist Scrub, First [...] RN 01/31/20 11:59:12 01/31/20 11:59:12 01/31/20 11:59:12 [facility] IntraOp Case Attendance Audit 01/31/20 11:59:12 Building Supplies Salesperson Retail: HAMILTGM Modifier: HAMILTGM 1 <+> Time Out [...] Procedure Knee Total Joint Replacement(Right) 01/31/20 11:50:30 Building Supplies Salesperson Retail: HAMILTGM Modifier: HAMILTGM 1 <*> Procedure Knee [...] Joint Replacement(Right) <+> 9 Procedure 01/31/20 11:17:17 Building Supplies Salesperson Retail: HAMILTGM Modifier: HAMILTGM 8 <+> Case Attendee 8 <*> Procedure Knee Total Joint Replacement(Right) <+> 9 Case Attendee <+> 9 Role Performed <+> 9 Time In <+> 9 Other Attendee 01/31/20 10:40:56 Building Supplies Salesperson Retail: HAMILTGM Modifier: HAMILTGM 1 <+> Time In [...] 8 <*> Procedure Knee Total Joint Replacement(Right) [facility] IntraOp Case Times Entry 1 Patient In Room Time 01/31/20 10:07:00 Out Room Time 01/31/20 11:57:00 Anesthesia Start Time 01/31/20 10:07:00 Stop Time 01/31/20 11:57:00 Surgery / Procedure Times Start Time 01/31/20 10:35:00 Stop Time 01/31/20 11:50:00 Last Modified By: Renetta Lawrence RN 01/31/20 11:59:11 [facility] IntraOp Case Times Audit 01/31/20 11:59:11 Building Supplies Salesperson Retail: HAMILTGM Modifier: HAMILTGM <+> 1 Out Room Time <+> 1 Stop Time 01/31/20 11:50:29 Building Supplies Salesperson Retail: HAMILTGM Modifier: HAMILTGM <+> 1 Stop Time [facility] IntraOp Cautery Entry 1 ESU Identification Cautery Type Monopolar ESU ID Number [id number] ID Type Hospital Number Cautery Settings Cut Setting 50 Coag Setting 50 ESU Grounding Pad Ground Pad Type Adult Grounding Pad Site Right Flank Grounding Pad Renetta Lawrence RN Applied By Grounding Pad Site Warm, Dry, Intact Skin Condition Before Cautery Grounding Pad Site Unchanged Skin Condition After Cautery Last Modified By: Renetta Lawrence RN 01/31/20 09:32:25 [facility] IntraOp Communication Entry 1 Entry 2 Communication To Family/Significant other Other Comment START REPORT Communication By Renetta Lawrence RN Hamilton, Gina M, RN Date and Time 01/31/20 10:37:00 01/31/20 11:26:00 Last Modified By: Renetta Lawrence RN Hamilton, Gina M, RN 01/31/20 10:37:14 01/31/20 11:26:26 [facility] IntraOp Communication Audit 01/31/20 11:26:26 Building Supplies Salesperson Retail: HAMILTGM Modifier: HAMILTGM <+> 2 Communication By <+> 2 Date and Time <+> 2 Communication To <+> 2 Comment [facility] IntraOp Counts Verification Entry 1 Procedure Knee Total Joint Replacement(Right) Count Info Count Type Sponge, Sharps, Miscellaneous Counts Verification Baseline/pre-procedure Sequence Count Results Not Applicable Counts Performed By Count Performed By Phoebe Mukherjee ST (Scrub) Count Performed By Renetta Lawrence RN (RN) Last Modified By: Renetta Lawrence RN 01/31/20 09:32:39 [facility] IntraOp Counts Final Entry 1 Procedure Knee Total Joint Replacement(Right) Final Count Info Count Type Sponge, Sharps, Miscellaneous Counts Verification Skin Closure/end of Sequence procedure Count Results Correct, surgeon notified Counts Performed By Count Performed By AIMEE CALABRESE CST (Scrub) Count Performed By Renetta Lawrence RN (RN) Last Modified By: Renetta Lawrence RN 01/31/20 11:24:00 [facility] IntraOp Counts Final Audit 01/31/20 11:24:00 Building Supplies Salesperson Retail: HAMILTGM Modifier: HAMILTGM 1 <*> Procedure Knee Total Joint Replacement(Right) 1 <+> Count Performed By (Scrub) 1 <+> Count Performed By (RN) [facility] IntraOp Cultures and Spec Summary Entry 1 Cultrures and Specimens Specimen Ordered: Yes Test(s) Routine/Path-Lab Requested/Final Disposition Last Modified By: Renetta Lawrence RN 01/31/20 09:33:05 General Comments: A. RIGHT KNEE BONES AND TISSUE [facility] IntraOp Departure from OR Entry 1 Integumentary Assessment Integumentary WDL Assessment WDL Transfer/Handoff Transfer to PACU Phase I Handoff Method Phone call Post-op Transport Bed (including Via specialty) Patient Transport Eulalia Tejada Crna, Accompanied by Renetta Lawrence RN Last Modified By: Renetta Lawrence RN 01/31/20 09:33:24 [facility] IntraOp Dressing and Packing Entry 1 Type Dressing Location OPERATIVE KNEE Wound Dressing Item Occlusive dressing, Skin Closure Glue Applied By ANITA MEJÍA CSA Other Comments AQUACEL AG, SAMIA HOSE, SCD SLEEVE Last Modified By: Renetta Lawrence RN 01/31/20 09:33:46 [facility] IntraOp Fire Risk Assessment Entry 1 [...] Modified By: Renetta Lawrence RN 01/31/20 09:33:51 [facility] IntraOp General Case Marble Helper 1 Case Information OR OR 05 [facility] Case Level 1 Room Verified Yes Wound Class I - Clean Specialty SN Orthopedic Anesthesia Type General ASA Class 2 Diagnosis Preop Diagnosis RIGHT KNEE OA Postop Same As Preop No Postop Diagnosis SEE DOCTOR'S POST OP NOTES Last Modified By: Renetta Lawrence RN 01/31/20 10:37:26 [facility] IntraOp General Case Data Audit 01/31/20 10:37:26 Building Supplies Salesperson Retail: LESTGPawel Modifier: HAMILTGM <+> 1 ASA Class [facility] IntraOp Implant Log Entry 1 Entry 2 Entry 3 Type Implant (Synthetic) Implant (Synthetic) Implant (Synthetic) Implant Log Implant Type Bone Cement Hardware Hardware Tissue Implant Type Implant CEMENT BONE SMPLX FEM CEMENTED CR NARROW TIB STEM SZ D [id number] Identification [id number] Description Implant Quantity 2 1 1 Implant Site OPSITE OPSITE OPSITE Implant Identification Model Number Implant Identification Serial Number Implant [id number] Identification Lot Number Implant Reyno:Douglas Identification Orthopaedics Data Center Solutions Architect Name: Implant [id number] Identification Catalog Number Implant Size Implant Has an Yes Yes Yes Expiration Date Implant Expiration 02/17/21 09/17/29 11/17/28 Date Wasted Radioactive Material Time Implanted Tissue Implant Continue for Tissue Implant Documentation Tissue Identification Number Graft Prep Per Data Center Solutions Architect Instructions: Tissue Preparation Method: Reconstitution Solution: Reconstitution Solution Lot Number Reconstitution Solution Expiration Date: Thawing Solution Thawing Solution Lot Number Thawing Solution Expiration Date Preparation Materials, Other Preparation Materials, Other Lot Number Preparation Materials, Other Expiration Date Tissue Prepared/Processed By Data Center Solutions Architect Paperwork Completed Implant Type Comment Last Modified By: Renetta Lawrence RN Hamilton, Gina M, RN Hamilton, Gina M, RN 01/31/20 09:35:03 01/31/20 11:20:13 01/31/20 11:20:13 Entry 4 Entry 5 Type Implant (Synthetic) Implant (Synthetic) Implant Log Implant Type Hardware Hardware Tissue Implant Type Implant PATELLA CEMENTED PSN ASF MC 10MM VE Identification [id number] [id number] Description Implant Quantity 1 1 Implant Site OPSITE OPSITE Implant Identification Model Number Implant Identification Serial Number Implant [id number] Identification Lot Number Implant Identification [employer] Center Solutions Architect Name: Implant Identification Catalog Number Implant Size Implant Has an Yes Yes Expiration Date Implant Expiration 04/19/27 11/18/23 Date Wasted Radioactive Material Time Implanted Tissue Implant Continue for Tissue Implant Documentation Tissue Identification Number Graft Prep Per Data Center Solutions Architect Instructions: Tissue Preparation Method: Reconstitution Solution: Reconstitution Solution Lot Number Reconstitution Solution Expiration Date: Thawing Solution Thawing Solution Lot Number Thawing Solution Expiration Date Preparation Materials, Other Preparation Materials, Other Lot Number Preparation Materials, Other Expiration Date Tissue Prepared/Processed By Data Center Solutions Architect Paperwork Completed Implant Type Comment Last Modified By: Renetta Lawrence RN Hamilton, Gina M, RN 01/31/20 11:20:13 01/31/20 11:20:13 [facility] IntraOp Implant Log Audit 01/31/20 11:20:13 Building Supplies Salesperson Retail: ALDA Modifier: ALDA <+> 2 Implant Identification [...] Has an Expiration Date <+> 5 Type [facility] IntraOp Intraoperative Assessment Entry 1 Handoff [...] Modified By: Renetta Lawrence RN 01/31/20 09:35:17 [facility] IntraOp Intraoperative Equipment Entry 1 Type Equipment [...] Modified By: Renetta Lawrence RN 01/31/20 09:35:45 [facility] IntraOp Medication Admin Entry 1 Entry 2 Entry 3 Medication/Irrigant Bacitracin 50,00units Bacitracin 50,00units hydrogen peroxide 16oz powder vial powder vial - [id number] Combo Med List 1 - Combo Med 1 - Combo Med Time Administered Route of ADDED TO IRRIGATION ADDED TO IRRIGATION TOPICAL Administration Dose Dose [id number] Unit of Measure units units Volume IN 2000ML SALINE IN 3000ML SALINE Administered By DEAN ALVA KARTHIKEYAN, THARUN, KARTHIKEYAN, THARUN, MD-ORT -ORT -ORT Procedure Irrigation Irrigant Volume In Irrigant Volume Out Last Modified By: Renetta Lawrence RN Hamilton, Gina M, RN Hamilton, Gina M, RN 01/31/20 09:36:34 01/31/20 09:36:34 01/31/20 09:36:34 Entry 4 Medication/Irrigant vancomycin 1Gm vial - [id number] Combo Med List Time Administered Route of TOPICAL Administration Dose Dose 1 Unit of Measure gram Volume Administered By DEAN ALVA MD-ORMarycarmen Procedure Irrigation Irrigant Volume In Irrigant Volume Out Last Modified By: Renetta Lawrence RN 01/31/20 09:36:34 [facility] IntraOp Patient Positioning Entry 1 Procedure [...] Modified By: Renetta Lawrence RN 01/31/20 09:37:13 [facility] IntraOp Sign In Entry 1 Patient, [...] Modified By: Renetta Lawrence RN 01/31/20 09:38:26 [facility] IntraOp Sign Out Entry 1 RN [...] Modified By: Renetta Lawrence RN 01/31/20 11:50:35 [facility] IntraOp Sign Out Audit 01/31/20 11:50:35 Building Supplies Salesperson Retail: HAMILTGM Modifier: HAMILTGM <+> 1 RN Sign Out Signature Date/Time [facility] IntraOp Skin Prep Entry 1 Procedure Knee Total Joint Replacement(Right) Prescribed Yes Pre-Surgical Prep Completed Prep Area OPERATIVE THIGH TO TOES CIRCUMFRENTIALLY Intraop Prep Integumentary WDL Assessment WDL Prep Agents Alcohol, Chloraprep, DuraPrep, Chlorhexadine gluconate Prep by Renetta Lawrence RN Hair Removal Methods No hair removal performed Last Modified By: Renetta Lawrence RN 01/31/20 09:37:27 [facility] IntraOp Surgical Procedures Entry 1 Procedure [...] OF ANCEF INFUSED AT 1019 PER ANESTHESIA [facility] IntraOp Surgical Procedures Audit 01/31/20 11:50:29 Building Supplies Salesperson Retail: HAMILTGM Modifier: HAMILTGM <+> 1 Stop 01/31/20 10:36:27 Building Supplies Salesperson Retail: HAMILTGM Modifier: HAMILTGM 1 <*> Start 1 <*> Start 1 <*> Start [facility] IntraOp Temp Regulation Devices Entry 1 Temp Regulation Temperature Forced Air Warming Regulation Device device, Warm blankets Temperature Upper body Regulation Site Temperature Device 43 DEGREES CELCIUS Setting Temperature Eulalia Tejada, Sascha Regulation Device Applied by Last Modified By: Renetta Lawrence RN 01/31/20 09:37:39 [facility] IntraOP Time Out Entry 1 Procedure [...] Modified By: Renetta Lawrence RN 01/31/20 10:36:25 [facility] IntraOP Time Out Audit 01/31/20 10:36:25 Building Supplies Salesperson Retail: LESTGPawel Modifier: RADHAILTGM 1 <+> Time Out Pause Time 1 <*> Procedure to be Performed Knee Total Joint Replacement(Right) [facility] IntraOp Tourniquet Entry 1 Type Pneumatic Serial/Unit Number [id number] Setting 300 mmHg Pheumatic Yes Tourniquet Checked Per Protocol Size 34 inches Placement Thigh, right upper Skin Protection - Yes Padded Under Cuff Applied By ANITA MEJÍA, CSA Removed By ANITA MEJÍA, CSA Times Start Time 01/31/20 10:35:00 Stop Time 01/31/20 11:32:00 Total Time 57 calculated manually (Mins) Last Modified By: Renetta Lawrence RN 01/31/20 11:33:06 [facility] IntraOp Tourniquet Audit 01/31/20 11:33:06 Building Supplies Salesperson Retail: LESTGM Modifier: HAMILTGM <+> 1 Total Time calculated manually (Mins) <+> 1 Stop Time 01/31/20 10:36:53 Building Supplies Salesperson Retail: HAMILTGM Modifier: HAMILTGM <+> 1 Start Time Case Comments <None> Finalized By: DORETHA ADEN Document Signatures Signed By: Renetta Lawrence RN 01/31/20 11:59 DOREHTA ADEN 02/01/20 09:34 Unfinalized History Date/Time Username Reason for Unfinalizing Freetext Reason for Unfinalizing 02/01/20 09:31 WATTSDR Correct Billing Electronically signed by Kee, [facility] Conversion Supervisor Color Making Cerner at 11/06/2022 12:53 PM CDT documented in this encounter Plan of Treatment Not on file documented as of this encounter Visit Diagnoses Not on filedocumented in this encounter Care Teams Balancing Machine Operator Relationship Specialty Start Date End Date Matheus Boggs MD [address] [facility] [address] [place] [phone] PCP - General Family Medicine 09/05/22 documented as of this encounter
--- OUTSIDE RECORDS SUMMARY | 2025-03-16 10:25 | XMS_ITS | Encounter Summary ---
Author Organization [employer] ([place], [place], [place], [place]) Address [address] [place] [address] Care Team Providers Care It Consultant Name Role Phone Michelet Boggs MD Primary Care Provider + [phone] Encounter Details Date Type Department Care Team (Late st Contact Info) Description 02/01/2020 Transcribed Document [facility] [place] [facility] [place] [address] ProviderCristopher MD [address] [place] [id number] Social History Tobacco Use Types Packs/Day Years [...] mg, Oral, BID allerlgy shots 1, SubCutaneous, E3Mbigv Arnuity Ellipta 100 mcg, PRN, Inhalation, [id number] aspirin 81 mg oral tablet 81 mg = 1 Tab, Oral, BID Colace 100 mg oral capsule 100 mg = 1 Cap, PRN, Oral, BID ferrous gluconate 324 mg (37.5 mg elemental iron) oral tablet 324 mg = 1 Tab, Oral, Daily fexofenadine 180 mg, Oral, Daily fluticasone 50 mcg/inh nasal spray 2 [place], PRN, Nasal, BID hydrochlorothiazide-irbesartan 12.5 mg-150 mg [...] 3. Pending Labs In Process SENDOUT REPORT [id number], [id number], RT - Routine, 01/31/20 10:41:00 EDT Pathology Tissue Request [id number], [id number], 01/31/20 10:41:00 EDT, Collected, RT - Routine, [...] Collect Time Spent on Discharge 20 minutes Electronically signed by Milo Sweet Conversion Special Education Inclusion Teacher Cerner at 11/06/2022 12:48 PM CDT documented in this encounter Plan of Treatment Not on file documented as of this encounter Visit Diagnoses Not on filedocumented in this encounter Care Teams It Consultant Relationship Specialty Start Date End Date Michelet Boggs MD [address] [place] [facility] [address] [place] [phone] PCP - General Family Medicine 09/05/22 documented as of this encounter
--- OUTSIDE RECORDS SUMMARY | 2025-03-16 10:25 | XMS_ITS | Encounter Summary ---
Author Organization [employer] ([place], [place], [place], [place]) Address [address] [place] [address] Care Team Providers Care Carton Stenciler Name Role Phone Matheus Boggs MD Primary Care Provider + [phone] Encounter Details Date Type Department Care Team (Late st Contact Info) Description 01/31/2020 Transcribed Document [facility] [place] [facility] [place] [address] ProviderCristopher MD [address] [place], [place] [phone] Social History Tobacco Use Types Packs/Day Years [...] Emotional Support : Empathic/Engaged listening Spiritual and Nondenominational : Prayer shared, Spiritual/Nondenominational support provided PHANI BARLOW P - 01/31/2020 9:13 EDT Electronically signed by [facility], [facility] Conversion Siphoner Cerner at 11/06/2022 12:54 PM CDT documented in this encounter Plan of Treatment Not on file documented as of this encounter Visit Diagnoses Not on filedocumented in this encounter Care Teams Carton Stenciler Relationship Specialty Start Date End Date Matheus Boggs MD [address] [place] [facility] [address] [place] [phone] PCP - General Family Medicine 09/05/22 documented as of this encounter
--- OUTSIDE RECORDS SUMMARY | 2025-03-16 10:25 | XMS_ITS | Encounter Summary ---
Author Organization [employer] ([place], [place], [place], [place]) Address [address] [place] [address] Care Team Providers Care Cork Insulation Installer Name Role Phone Matheus Boggs MD Primary Care Provider + [phone] Encounter Details Date Type Department Care Team (Late st Contact Info) Description 01/31/2020 Transcribed Document [facility] [place] Family Medicine [facility] [place] [address] ProviderCristopher MD [address] [place] [address] Social History Tobacco Use Types [...] PHARMACY TECH LEAD - 02/01/2020 7:13 EDT Electronically signed by Milo Sweet Conversion Emergency Communications Officer Cerner at 11/06/2022 1:10 PM CDT documented in this encounter Plan of Treatment Not on file documented as of this encounter Visit Diagnoses Not on filedocumented in this encounter Care Teams Cork Insulation Installer Relationship Specialty Start Date End Date Matheus Boggs MD [address] [facility] [address] [place] [phone] PCP - General Family Medicine 09/05/22 documented as of this encounter
--- OUTSIDE RECORDS SUMMARY | 2025-03-16 10:25 | XMS_ITS | Referral Summary ---
Author Organization [facility] Address [address] [address] Care Team Providers Care Fixture Builder Name Role Phone Unavailable Primary Care Provider [...]
--- OUTSIDE RECORDS SUMMARY | 2025-03-16 10:25 | XMS_ITS | Encounter Summary ---
Author Organization [employer] ([place], [place], [place], [place]) Address [address] [place] [address] Care Team Providers Care Housing Assistant Name Role Phone Matheus Boggs MD Primary Care Provider + [phone] Encounter Details Date Type Department Care Team (Late st Contact Info) Description 01/31/2020 Transcribed Document [facility] Radiology 1 [place] [address] Lizz Gonzalez MD [facility] [place] [address] Social History Tobacco Use Types Packs/Day Years [...] Diagnosis Osteoarthritis right knee *Surgeon(s) Surgeon: Carlos Filing And Polishing Supervisor: Lorenzo *Procedure Narrative Patient identified in the [...] The cruciates were resected. Next, distal femoral bar pilot hole was drilled and the intramedullary [...] with a Bovie. Femur was sized. The Gold Americaon gap explosive operator supervisor was placed and tensed. Posterior condyle resection as noted above. Drill holes made through the explosive operator supervisor and the appropriately sized four-in-one block placed [...] drapes were removed. [facility] Compression stocking and Cryo/Cuff placed in the [...] on filedocumented in this encounter Care Teams Housing Assistant Relationship Specialty Start Date End Date Matheus Boggs MD [address] [place] [facility] [address] [place] [phone] PCP - General Family Medicine 09/05/22 documented as of this encounter
--- OUTSIDE RECORDS SUMMARY | 2025-03-16 10:25 | XMS_ITS | Encounter Summary ---
Author Organization [employer] ([place], [place], [place], [place]) Address [address] [place] [address] Care Team Providers Care Automation Technician Name Role Phone Matheus Boggs MD Primary Care Provider + [phone] Encounter Details Date Type Department Care Team (Late st Contact Info) Description 02/01/2020 Transcribed Document [facility] Family Medicine [facility] [place] [address] ProviderCristopher MD [address] [place] [id number] Social History Tobacco Use Types Packs/Day Years [...] on filedocumented in this encounter Care Teams Automation Technician Relationship Specialty Start Date End Date Matheus Boggs MD [address] [facility] [address] [place] [phone] PCP - General Family Medicine 09/05/22 documented as of this encounter
--- OUTSIDE RECORDS SUMMARY | 2025-03-16 10:25 | XMS_ITS | Encounter Summary ---
Author Organization [email or web address] ([place], [place], [place], [place]) Address [address] [place] [address] Care Team Providers Care Payroll Processor Name Role Phone Matheus Boggs MD Primary Care Provider + [phone] Encounter Details Date Type Department Care Team (Late st Contact Info) Description 01/31/2020 Transcribed Document [facility] [place] [address] [place] [address] ProviderCristopher MD [address] [place] [address] Social History Tobacco Use Types [...] Phillips STUDENT-OCCUPATIONAL THERAPIST - 01/31/2020 14:28 EDT Inter Com Servicer Goals, OT Grooming LTG Grid Goal #1 [...] the text rendition version of the form. [place] OT Charges OT Eval Moderate Complexity : 1 Malinda Phillips STUDENT-OCCUPATIONAL THERAPIST - 01/31/2020 14:28 EDT documented in this encounter Plan of Treatment Not on file documented as of this encounter Visit Diagnoses Not on filedocumented in this encounter Care Teams Payroll Processor Relationship Specialty Start Date End Date Matheus Boggs MD [address] [place] [facility] [address] [place] [phone] PCP - General Family Medicine 09/05/22 documented as of this encounter
--- OUTSIDE RECORDS SUMMARY | 2025-03-16 10:25 | XMS_ITS | Referral Summary ---
Author Organization [employer] ([place], [place], [place], [place]) Address [address] [place] [address] Care Team Providers Care Oncology Research Rn Name Role Phone Matheus Boggs MD Primary Care Provider [phone] Allergies Active Allergy Reactions Criticality Noted Date Comments Aspirin 10/04/2013 Sulfamethoxazole-Trimethoprim 2014 Codeine Phosphate 10/04/2013 Nsaids (Non-Steroidal Anti-I nflammatory Drug) 10/04/2013 Oxycodone 10/04/2013 Penicillin 10/04/2013 Oxycodone-Aspirin 10/04/2013 Oyuzade-Tpo-Isk Reductase Inhibitors 10/04/2013 Sulfa (Sulfonamide Antibiotics) 09/18 [...] abnormal study. Mild anterior reversibility. EF 81%. [facility] 03/03/2012: Patent coronaries. Mild CAD. EF [...] Date Dak[place] rded Speak language other than Thai at home Not on file 08/08/2023 Want [...] on file Insurance MEDICARE PART A B [facility] MCR SUPP [facility] CLAIMS Care Teams Oncology Research Rn Relationship Specialty Start Date End Date Matheus Boggs MD [address] [facility] [address] [place] [phone] PCP - General Family Medicine 09/05/22
--- OUTSIDE RECORDS SUMMARY | 2025-03-16 10:25 | XMS_ITS | Encounter Summary ---
Author Organization [employer] ([place], [place], [place], [place]) Address [address] [place] [address] Care Team Providers Care Solution Consultant Name Role Phone Matheus Boggs MD Primary Care Provider + [phone] Encounter Details Date Type Department Care Team (Late st Contact Info) Description 01/13/2020 Transcribed Document [facility] Family [place] [address] ProviderCristopher MD [address] [place] [address] Social History Tobacco Use Types Packs/Day [...] Source : Measured Height Entry Format : [place] Height, Feet : 5 ft(Converted to: 152 cm, 60 Inch) Height, Inches : 1.5 Inch(Converted to: 0 ft 2 Inch, 3.81 cm) Clinical Height : 156.21 cm Weight Source : Standing scale Weight Entry Format : [place] Clinical Dosing Weight : 78.32 kg Weight, Pounds : 172 lb Weight, Ounces : 5 oz Body Surface Area (BSA) : 1.79 m2 Body Mass Index : 32.1 kg/m2 (HI) [place] Body Weight : 49 kg FAROOQ SAVAGE [...] Directive Type : Medical durable power of employment law attorney (proxy) FAROOQ SAVAGE RN - 01/13/2020 10:05 EDT Spiritual/Cultural Needs Any Spiritual/Cultural Needs or Requests : Yes Spiritual/Cultural Needs Comment : surgery on time in to be determioned Spiritual/Cult Concerns/Desires/Needs : Prayer Spiritual/Cultural Needs Comment : surgery on y 13 time in to be determioned FAROOQ SAVAGE RN - 01/13/2020 10:05 EDT [place] Suicide Severity Rating Scale (C-SSRS) CSSRS Past [...] Arrival Date/Time : 01/31/2020 7:01 EDT Senior Software Manager Needed : MO Baird RN - 01/31/2020 7:56 EDT Arrived From : Home Mode of Arrival on Unit : Ambulatory FAROOQ SAVAGE RN - 01/13/2020 10:23 EDT Legal Guardian : Daughter, Unaccompanied MO Macdonald RN - 01/31/2020 7:56 EDT Support Person/Patient [employer] Team Member : Yes Support Person/Pt Rep Name : Lili White - dtr Fay Reese - dtr Support Person/Pt Rep Contact Information : [phone] Want Family/Rep/Phys Notified of Admit : No Emergency Contact #1 : Lili White Emergency Contact #1 Emergency Contact #1 Relationship : dtr Emergency Contact #2 : Fay Reese Emergency Contact #2 Emergency Contact #2 Relationship : dtr Information Obtained From : Patient Primary Language : Palauan Preferred Communication Mode : Verbal Communication Barrier [...] on filedocumented in this encounter Care Teams Solution Consultant Relationship Specialty Start Date End Date Matheus Boggs MD [address] [place] [facility] [address] [place], [place] [address] PCP - General Family Medicine 09/05/22 documented as of this encounter
--- OUTSIDE RECORDS SUMMARY | 2025-03-16 10:25 | XMS_ITS | Encounter Summary ---
Author Organization [employer] ([place], [place], [place], [place]) Address [address] [place] [address] Care Team Providers Care Mathematics Department Chair Name Role Phone Matheus Boggs MD Primary Care Provider + [phone] Encounter Details Date Type Department Care Team (Late st Contact Info) Description 01/31/2020 Transcribed Document [facility] Radiology 1 [place] [address] Lizz Gonzalez MD [facility] [place] [address] Social History Tobacco Use Types Packs/Day Years [...] : 1945 Associated Diagnoses: None Author: HOLLEYRFAY, ACTIVITY THERAPY SPECIALIST Chief Complaint R knee pain Review of [...] Medications Documented Arnuity Ellipta: 100 mcg, Inhalation, [id number], PRN: Wheezing, 0 Refill(s) Levoxyl: 125 mcg, Oral, Daily, 0 Refill(s) Singulair: 10 mg, Oral, At Bedtime, 0 Refill(s) Tylenol: 650 mg, Oral, At Bedtime, 0 Refill(s) Ventolin HFA: 2 Puff, Inhalation, Q4H, PRN: as needed for wheezing, 0 Refill(s) acebutolol: 200 mg, Oral, BID, 0 Refill(s) allerlgy shots: 1, SubCutaneous, L6Eoobs, 0 Refill(s) fexofenadine: 180 mg, Oral, Daily, 0 Refill(s) fluticasone 50 mcg/inh nasal spray: 2 [place], Nasal, BID, PRN: Allergies, 16 Gram, 0 Refill(s) hydrOXYzine hydrochloride: 25 mg, Oral, TID, PRN: as needed for anxiety, 0 Refill(s) hydrochlorothiazide-irbesartan 12.5 mg-150 mg oral tablet: 1 Tab, Oral, Daily, 30 Tab, 0 Refill(s) liothyronine: 5 mcg, Oral, Daily, 0 Refill(s) meloxicam: 7.5 mg, Oral, Daily, 0 Refill(s), Home Medications (13) Active acebutolol 200 mg, Oral, BID allerlgy shots 1, SubCutaneous, [id number] Arnuity Ellipta 100 mcg, PRN, Inhalation, O10QDur fexofenadine 180 mg, Oral, Daily fluticasone 50 mcg/inh nasal spray 2 Armbrust, PRN, Nasal, BID hydrochlorothiazide-irbesartan 12.5 mg-150 mg [...] Problems Urinary tract infection / SNOMED CT 365415597 / Confirmed hypo Thyroid disease / SNOMED CT 886225017 / Confirmed Sinusitis / SNOMED CT 27269754 / Confirmed Seasonal allergies / SNOMED CT 8610697212 / Confirmed Renal calculus / SNOMED CT 188881712 / Confirmed Thyroid mass benign / SNOMED CT 8876653903 / Confirmed Irritable bowel syndrome / SNOMED CT 95523572 / Confirmed Incontinence/Frequency / SNOMED CT 90195127 / Confirmed Hyperlipidemia / SNOMED CT 84083480 / Confirmed High blood pressure / SNOMED CT 71395503 / Confirmed Hiatal hernia / SNOMED CT 438727900 / Confirmed Hemorrhoids / SNOMED CT 099141265 / Confirmed Hard of hearing has aides / SNOMED CT 309367307 / Confirmed Shortness of breath / SNOMED CT 229904812 / Confirmed Difficulty swallowing / SNOMED CT 34583250 / Confirmed H/O bilateral Cataract / SNOMED CT 250406655 / Confirmed Cardiac syndrome X / SNOMED CT 343065867 / Confirmed Bursitis / SNOMED CT 292862606 / Confirmed At risk for sleep apnea / IMO 70790794 / Confirmed Asthma / SNOMED CT 826436602 / Confirmed Arthritis osteo / SNOMED CT 0121121 / Confirmed Angina / SNOMED CT 623140486 / Confirmed Allergic rhinitis / SNOMED CT 223684577 / Confirmed, Active Problems (23) Allergic rhinitis [...] exam in office notes. Integumentary: Warm, Dry, [place]. Neurologic: Alert, Oriented. Psychiatric: Cooperative, Appropriate mood [...] on filedocumented in this encounter Care Teams Mathematics Department Chair Relationship Specialty Start Date End Date Matheus Boggs MD [address] [place] [facility] [address] [place] [phone] PCP - General Family Medicine 09/05/22 documented as of this encounter
--- OUTSIDE RECORDS SUMMARY | 2025-03-16 10:25 | XMS_ITS | Encounter Summary ---
Author Organization [employer] ([place], [place], [place], [place]) Address [address] [place] [address] Care Team Providers Care Quality System Manager Name Role Phone Matheus Boggs MD Primary Care Provider + [phone] Encounter Details Date Type Department Care Team (Late st Contact Info) Description 01/31/2020 Transcribed Document [facility] [place] [facility] [place] [address] ProviderCristopher MD [address] [place] [address] Social History Tobacco Use Types Packs/Day [...] Cristopher ProviderMD - 01/31/2020 10:35 AM CDT [facility] Main OR Preop Summary Primary Physician: DEAN ALVA MD-ORT Finalized Date/Time: 01/31/20 12:01:49 Pt. Name: MARY WALKER/Sex: 1945 Female Med Rec #: [id number] Physician: DEAN ALVA MD-ORT Financial #: [id number] Pt. Type: O Room/Bed: /9 Admit/Disch: 01/31/20 06:33:00 - Institution: [facility] PreOp Case Times Entry 1 In Preop 01/31/20 07:02:00 Ready for Holding n/a Room Patient Ready for 01/31/20 08:41:00 Surgery Patient Out of Preop 01/31/20 10:00:00 Patient Out of n/a Holding Room Last Modified By: Tamar Casiano, Nurse Property Assessment Monitor 01/31/20 12:01:45 [facility] PreOp Case Times Audit 01/31/20 12:01:45 Production Control Scheduler: ANTONIO Modifier: [id number] <+> 1 Patient Out of Preop 01/31/20 08:41:48 Production Control Scheduler: WILSONDL Modifier: WILSONDL <+> 1 Patient Ready for Surgery Finalized By: Tamar Casiano, Nurse Merchandise Collector Signatures Signed By: Tamar Casiano Nurse 01/31/20 12:01 Electronically signed by Kee [facility] Conversion Property Management Specialist Cerner at 11/06/2022 12:49 PM CDT documented in this encounter Plan of Treatment Not on file documented as of this encounter Visit Diagnoses Not on filedocumented in this encounter Care Teams Quality System Manager Relationship Specialty Start Date End Date Matheus Boggs MD [address] [facility] [address] [place] [phone] PCP - General Family Medicine 09/05/22 documented as of this encounter
--- OUTSIDE RECORDS SUMMARY | 2025-03-16 10:25 | XMS_ITS | Encounter Summary ---
Author Organization [employer] ([place], [place], [place], [place]) Address [address] [place] [address] Care Team Providers Care Breaker Oiler Name Role Phone Matheus Boggs MD Primary Care Provider + [phone] Encounter Details Date Type Department Care Team (Late st Contact Info) Description 02/01/2020 Transcribed Document [facility] Family Medicine [facility] [address] ProviderCristopher MD [address] [place] [address] Social History Tobacco Use Types Packs/Day [...] On: 02/01/2020 17:20 EDT by NAGI TAPIA RN-Marketing ForecasterStock Layer Progress Note Discharge Arrangements : Patient Post-Acute [...] Attend Multidisciplinary Rounds? : Yes NAGI TAPIA RN-Marketing Forecaster - 02/01/2020 17:20 EDT Electronically signed by [facility] Conversion Link Machine Operator Cerner at 11/06/2022 1:00 PM CDT documented in this encounter Plan of Treatment Not on file documented as of this encounter Visit Diagnoses Not on filedocumented in this encounter Care Teams Breaker Oiler Relationship Specialty Start Date End Date Matheus Boggs MD [address] [facility] [address] [place] [phone] PCP - General Family Medicine 09/05/22 documented as of this encounter
--- OUTSIDE RECORDS SUMMARY | 2025-03-16 10:25 | XMS_ITS | Encounter Summary ---
Author Organization [employer] ([place], [place], [place], [place]) Address [address] [place] [address] Care Team Providers Care Rocket Propellant Plant Supervisor Name Role Phone Matheus Boggs MD Primary Care Provider + [phone] Encounter Details Date Type Department Care Team (Late st Contact Info) Description 10/18/2020 Transcribed Document [facility] [place] [facility] [place] [address] ProviderCristopher MD [address] [place] [address] Social History Tobacco Use Types Packs/Day [...] Source : Measured Height Entry Format : [place] Height, Feet : 0 ft(Converted to: 0 cm, 0 Inch) Height, Inches : 60.5 Inch(Converted to: 5 ft 0 Inch, 153.67 cm) Clinical Height : 153.67 cm Weight Source : Standing scale Weight Entry Format : [place] Clinical Dosing Weight : 80.68 kg Weight, Pounds : 177.5 lb Body Surface Area (BSA) : 1.79 m2 Body Mass Index : 34.2 kg/m2 (HI) [place] Body Weight : 46 kg MARY ACEVEDO RN - 10/19/2020 12:12 EDT Health Histories Smoking Status : Never (less than 100 in lifetime; none in last 30 days) Smokeless Tobacco Status : Never Implant/Device Type, Director Radio and Model : knee replacement abdominal mesh [...] : Yes Spiritual/Cultural Needs Comment : 10/06 Roman Catholic Preference : Gnosticist ([employer] of [place]) Spiritual/Cultural Needs Comment : 10/06 Zac Murrieta Rn - 10/18/2020 9:40 EDT [place] Suicide Severity Rating Scale (C-SSRS) CSSRS Past [...] Ambulatory Legal Guardian : Daughter Support Person/Patient Bit Welder : Yes Support Person/Pt Rep Name : Bibiana White - dtr Support Person/Pt Rep Contact Information : [phone] Bibiana Edmond Family/Rep/Phys Notified of Admit : No Zac Murrieta Rn - 10/18/2020 9:40 EDT Emergency Contact #1 : `Bibiana Christopher Emergency Contact #1 Phone Number : [phone]` Emergency Contact #1 Relationship : daughter` MARY ACEVEDO RN - 10/19/2020 12:12 EDT Emergency Contact #2 : ` Emergency Contact #2 Phone Number : ` Emergency Contact #2 Relationship : ` Information Obtained From : Patient Primary Language : Libyan Preferred Communication Mode : Verbal Communication Barrier : None Side Framer Needed : No Zac Murrieta Rn - [...] on filedocumented in this encounter Care Teams Rocket Propellant Plant Supervisor Relationship Specialty Start Date End Date [place], Matheus T, MD [address] [place] [facility] [address] [place] [phone] PCP - General Family Medicine 09/05/22 documented as of this encounter
--- OUTSIDE RECORDS SUMMARY | 2025-03-16 10:25 | XMS_ITS | Encounter Summary ---
Author Organization [employer] ([place], [place], [place], [place]) Address [address] [place] [address] Care Team Providers Care Aws Software Development Engineer Name Role Phone Matheus Boggs MD Primary Care Provider + [phone] Encounter Details Date Type Department Care Team (Late st Contact Info) Description 10/17/2020 Transcribed Document [facility] Family Medicine [facility] [place] [address] ProviderCristopher MD [address] [place] [address] Social History Tobacco Use Types Packs/Day [...] arrive at 1230. She plans to use [facility], as she did for her [...] - 10/17/2020 11:08 EDT Electronically signed by [facility] Conversion Alterations Expert Cerner at 11/06/2022 12:57 PM CDT documented in this encounter Plan of Treatment Not on file documented as of this encounter Visit Diagnoses Not on filedocumented in this encounter Care Teams Aws Software Development Engineer Relationship Specialty Start Date End Date Matheus Boggs MD [address] [facility] [address] [place] [address] PCP - General Family Medicine 09/05/22 documented as of this encounter
--- OUTSIDE RECORDS SUMMARY | 2025-03-16 10:25 | XMS_ITS | Encounter Summary ---
Author Organization [employer] ([place], [place], [place], [place]) Address [address] [place] [address] Care Team Providers Care Fire Patrol Name Role Phone Matheus Boggs MD Primary Care Provider + [phone] Encounter Details Date Type Department Care Team (Late st Contact Info) Description 02/01/2020 Transcribed Document [facility] Family Medicine [facility] [place] [address] ProviderCristopher MD [address] [place] [address] Social History Tobacco Use Types Packs/Day [...] Kent MD - 02/01/2020 2:07 PM CDT [facility] [place] [address] MARY WALKER V :1945 Visit Time:01/31/2020 [...] Up Instructions: Follow-up Dr. Gonzalez 3 wks ([phone]) Follow Up Instructions: Continue SAMIA hose for 6 weeks Follow Up Instructions: Leave Aquacel dressing in place x 7-10d, then open to air. Follow-Up Appointments Follow Up with SHWETA DANGELO PA-ORT When 02/21/2020 03:30 PM EDT Where: [facility] [employer] [address]- Medications What How Much When Instructions Next [...] (fluticasone 50 mcg/ inh nasal spray) 2 [place](s) Nasal Two Times A Day as needed [...] of Dr. Gonzalez or Dr. Arthur, call [phone] If you are a patient of Dr. German, call [phone] Nurse Navigator: Iavnna Carrasco Office: [phone]; ; available during regular business hours Emergency [...] Assistance with quitting is available by contacting 4-831-GUWMNOW. This is a free resource providing counseling, [...] range between ( 0.0 and 7.0 ) [place] #: 0.72 K/uL -- Normal range between ( 0.16 and 1.00 ) [place] #: 0.10 x10(3)/uL -- Normal range between ( 0.00 and 0.80 ) [place] %: 7.6 % -- Normal range between [...] was given the opportunity to ask questions. Patient/Airline Operations Agent Name: Patient/Airline Operations Agent Signature: Relationship to Patient: Clinician/Hospital Airline Operations Agent Signature: Date: Electronically signed by Interface, [facility] Conversion Substation Operator Cerner at 11/06/2022 1:12 PM CDT documented in this encounter Plan of Treatment Not on file documented as of this encounter Visit Diagnoses Not on filedocumented in this encounter Care Teams Fire Patrol Relationship Specialty Start Date End Date Matheus Boggs MD [address] [facility] [address] [place] [address] PCP - General Family Medicine 09/05/22 documented as of this encounter
--- OUTSIDE RECORDS SUMMARY | 2025-03-16 10:25 | XMS_ITS | Encounter Summary ---
Author Organization [employer] ([place], [place], [place], [place]) Address [address] [place] [address] Care Team Providers Care Classification Case Manager Name Role Phone Matheus Boggs MD Primary Care Provider + [phone] Encounter Details Date Type Department Care Team (Late st Contact Info) Description 01/31/2020 Transcribed Document [facility] [place] [facility] [address] ProviderCristopher MD [address] [place] [address] Social History Tobacco Use Types [...] EDT Performed On: 01/31/2020 8:37 EDT by MO Macdonald RN Procedure Documentation Procedure to be [...] Anesthesiologist Procedure Case Attendee Role 2 : screen print operator Case Attendee 2 : MO Macdonald RN Procedure Case Attendee Role 3 : screen print operator Case Attendee 3 : Nanette Weston RN [...] 01/31/2020 8:37 EDT Electronically signed by Kee [facility] Conversion Cosmetics Machine Operator Cerner at 11/06/2022 1:06 PM CDT documented in this encounter Plan of Treatment Not on file documented as of this encounter Visit Diagnoses Not on filedocumented in this encounter Care Teams Classification Case Manager Relationship Specialty Start Date End Date Matheus Boggs MD [address] [place] [facility] [address] [place] [phone] PCP - General Family Medicine 09/05/22 documented as of this encounter
--- OUTSIDE RECORDS SUMMARY | 2025-03-16 10:25 | XMS_ITS | Encounter Summary ---
Author Organization [employer] ([place], [place], [place], [place]) Address [address] [place] [address] Care Team Providers Care Senior Tech Manufacturing Engineering Name Role Phone Matheus Boggs MD Primary Care Provider + [phone] Encounter Details Date Type Department Care Team (Late st Contact Info) Description 02/01/2020 Transcribed Document [facility] [place] [facility] [place] [address] ProviderCristopher MD [address] [place] [address] Social History Tobacco Use Types Packs/Day [...] On: 02/01/2020 17:21 EDT by NAGI TAPIA RN-Hot Blast Worker Final Discharge Planning Discharge Arrangements : Patient [...] Services (Related/SOC within 3 days)-06 NAGI TAPIA RN-Hot Blast Worker - 02/01/2020 17:21 EDT documented in this encounter Plan of Treatment Not on file documented as of this encounter Visit Diagnoses Not on filedocumented in this encounter Care Teams Senior Tech Manufacturing Engineering Relationship Specialty Start Date End Date Matheus Boggs MD 1210 [facility] [address] [place] [phone] PCP - General Family Medicine 09/05/22 documented as of this encounter
--- OUTSIDE RECORDS SUMMARY | 2025-03-16 10:25 | XMS_ITS | Encounter Summary ---
Author Organization [employer] ([place], [place], [place], [place]) Address [address] [place] [address] Care Team Providers Care Automation Design Engineer Name Role Phone Matheus Boggs MD Primary Care Provider + [phone] Encounter Details Date Type Department Care Team (Late st Contact Info) Description 01/31/2020 Transcribed Document [facility] [place] Family Medicine Count includes the [facility] [address] ProviderCristopher MD [address] [place] [address] Social History Tobacco Use Types Packs/Day [...] Directive Type : Medical durable power of business solutions consultant (proxy) Copy Advance Directive Verified/on Chart : [...] Legal Guardian : Daughter, Unaccompanied Support Person/Patient Game Developer : Yes Support Person/Pt Rep Name : Lili White - dtr Fay Reese - dtr Support Person/Pt Rep Contact Information : [phone] Want Family/Rep/Phys Notified of Admit : No Emergency Contact #1 : Lili White Emergency Contact #1 Emergency Contact #1 Relationship : dtr Emergency Contact #2 : Fay Reese Emergency Contact #2 Emergency Contact #2 Relationship : dtr Information Obtained From : Patient Primary Language : Panamanian Preferred Communication Mode : Verbal Communication Barrier : None Diesel Powerplant Supervisor Needed : No Objects to Sharing Info [...] Level : 46 or > High Risk [place] Fall Interventions : Adequate lighting, Assistive devices [...] Source : Measured Height Entry Format : [place] Height, Feet : 5 ft(Converted to: 152 cm, 60 Inch) Height, Inches : 1.5 Inch(Converted to: 0 ft 2 Inch, 3.81 cm) Clinical Height : 156.21 cm Weight Source : Standing scale Weight Entry Format : [place] Clinical Dosing Weight : 78.32 kg Weight, Pounds : 172 lb Weight, Ounces : 5 oz Body Surface Area (BSA) : 1.79 m2 Body Mass Index : 32.1 kg/m2 (HI) [place] Body Weight : 49 kg Jaida Larios [...] Schedule : No qualifying data available. Jaida Lariso Rn - 01/31/2020 13:54 EDT Nutrition History Eating Poorly Due to Decreased Appetite : No Unplanned Weight Loss in Past 3-6 Months : No Malnutrition Screening Tool Total(mal) : 0 Malnutrition Screening Tool Risk Level : Patient not at risk Jaida Larios Rn - 01/31/2020 13:54 EDT [place] Suicide Severity Rating Scale (C-SSRS) CSSRS Past [...] filedocumented in this encounter Care Teams Automation Design Engineer Relationship Specialty Start Date End Date Matheus Boggs MD [address] [place] [facility] [address] [place] [id number] PCP - General Family Medicine 09/05/22 documented as of this encounter
--- OUTSIDE RECORDS SUMMARY | 2025-03-16 10:25 | XMS_ITS | Encounter Summary ---
Author Organization [employer] ([place], [place], [place], [place]) Address [address] [place] [address] Care Team Providers Care Director Microbiology Name Role Phone Matheus Boggs MD Primary Care Provider + [phone] Encounter Details Date Type Department Care Team (Late st Contact Info) Description 02/01/2020 Transcribed Document [facility] [place] Family Medicine [facility] [place] [address] ProviderCristopher MD [address] [place], [place] [phone] Social History Tobacco Use Types Packs/Day Years [...] of Dr. Gonzalez or Dr. Arthur, call [phone] If you are a patient of Dr. German, call [phone] Nurse Navigator: Ivanna Carrasco Office: [phone]; ; available during regular business hours documented in this encounter Plan of Treatment Not on file documented as of this encounter Visit Diagnoses Not on filedocumented in this encounter Care Teams Director Microbiology Relationship Specialty Start Date End Date Matheus Boggs MD [address] [place] [facility] [address] [place] [phone] PCP - General Family Medicine 09/05/22 documented as of this encounter
--- OUTSIDE RECORDS SUMMARY | 2025-03-16 10:25 | XMS_ITS | Encounter Summary ---
Author Organization [employer] ([place], [place], [place], [place]) Address [address] [place] [address] Care Team Providers Care Dental Tech Name Role Phone Matheus Boggs MD Primary Care Provider + [phone] Encounter Details Date Type Department Care Team (Late st Contact Info) Description 01/31/2020 Transcribed Document [facility] [place] Family Medicine [address] [place] [address] ProviderCristopher MD [address] [place], [place] [phone] Social History Tobacco Use Types Packs/Day Years [...] EDU BARNES, PT - 01/31/2020 13:51 EDT Group Home Goals Mobility/Bed Mobility LTG PT Grid Goal [...] 01/31/2020 13:51 EDT Electronically signed by Kee [facility] Conversion Marketing Administrative Assistant Cerner at 11/06/2022 1:03 PM CDT documented in this encounter Plan of Treatment Not on file documented as of this encounter Visit Diagnoses Not on filedocumented in this encounter Care Teams Dental Tech Relationship Specialty Start Date End Date Matheus Boggs MD [address] [facility] [address] [place] [phone] PCP - General Family Medicine 09/05/22 documented as of this encounter
--- OUTSIDE RECORDS SUMMARY | 2025-03-16 10:25 | XMS_ITS | Encounter Summary ---
Author Organization [employer] ([place], [place], [place], [place]) Address [address] [place] [address] Care Team Providers Care Electronic Assembly Name Role Phone Matheus Boggs MD Primary Care Provider + [phone] Encounter Details Date Type Department Care Team (Late st Contact Info) Description 10/09/2020 Transcribed Document [facility] [place] [facility] [place] [address] ProviderCristopher MD [address] [place] [address] Social History Tobacco Use Types [...] from sitting : Severe 7. Bending to floor/slat pickler an object : Moderate JESSY JR Raw [...] on filedocumented in this encounter Care Teams Electronic Assembly Relationship Specialty Start Date End Date Matheus Boggs MD [address] [place] [facility] [address] [place] [address] PCP - General Family Medicine 09/05/22 documented as of this encounter
--- OUTSIDE RECORDS SUMMARY | 2025-03-16 10:25 | XMS_ITS | Encounter Summary ---
Author Organization [email or web address] ([place], [place], [place], [place]) Address [address] [place] [address] Care Team Providers Care Vacuum Applicator Operator Name Role Phone Matheus Boggs MD Primary Care Provider + [phone] Encounter Details Date Type Department Care Team (Late st Contact Info) Description 01/31/2020 Transcribed Document [facility] [place] Family Medicine [address] [place] [address] ProviderCristopher MD [address] [place] [address] Social History Tobacco Use Types [...] No Devices Recorded HANNAH PEREZ OTR/Marianela - 02/01/2020 13:39 EDT General Status [...] Phillips STUDENT-OCCUPATIONAL THERAPIST - 02/01/2020 13:08 EDT Usp Goals, OT Grooming LTG Grid Goal #1 [...] ADLs. Equipment included long handled shoe horn, cut roll machine offbearer, sock aid, and leg hydraulic punch press operator. Pt verbalized understanding of equipment. Pt donned [...] the text rendition version of the form. [place] OT Charges OT Selfcare/Hm Mgmt Ea 15 Min : 1 OT Ther Activities Ea 15 Min : 1 Malinda Phillips STUDENT-OCCUPATIONAL THERAPIST - 02/01/2020 13:08 EDT documented in this encounter Plan of Treatment Not on file documented as of this encounter Visit Diagnoses Not on filedocumented in this encounter Care Teams Vacuum Applicator Operator Relationship Specialty Start Date End Date Matheus Boggs MD [address] [place] [facility] [address] [place] [phone] PCP - General Family Medicine 09/05/22 documented as of this encounter
--- OUTSIDE RECORDS SUMMARY | 2025-03-16 10:25 | XMS_ITS | Encounter Summary ---
Author Organization [employer] ([place], [place], [place], [place]) Address [address] [place] [address] Care Team Providers Care Web Operations Administrator Name Role Phone Matheus Boggs MD Primary Care Provider + [phone] Encounter Details Date Type Department Care Team (Late st Contact Info) Description 02/01/2020 Transcribed Document [facility] [place] [address] ProviderCristopher MD [address] [place], [place] [phone] Social History Tobacco Use Types Packs/Day Years [...] Insurance 1 Health Plan: MEDICARE Policy Number: [id number] Authorization Number: NPR Insurance 2 Health Plan: AARP N Policy Number: [id number] Authorization Number: NPR Insurance Primary Name : MEDICARE Authorization Number-Primary : NPR for Medicare Authorized Service Begin Date-Primary : 01/31/2020 EDT Historical Authorization Comments-Primary : Comment 1: pt scheduled for OUT PT total knee replacement (Right) on 01-31-2020 Medicare: NPR (JOSH MALIK, Integrated Marketing Specialist 01/28/2020 13:53) Susi Andino, Rn-Utilization Review - 02/01/2020 9:52 EDT Electronically signed by [facility] Conversion Religion Professor Cerner at 11/06/2022 1:00 PM CDT documented in this encounter Plan of Treatment Not on file documented as of this encounter Visit Diagnoses Not on filedocumented in this encounter Care Teams Web Operations Administrator Relationship Specialty Start Date End Date Matheus Boggs MD [address] [facility] [address] [place] [phone] PCP - General Family Medicine 09/05/22 documented as of this encounter
--- OUTSIDE RECORDS SUMMARY | 2025-03-16 10:25 | XMS_ITS | Encounter Summary ---
Author Organization [employer] ([place], [place], [place], [place]) Address [address] [place] [address] Care Team Providers Care Jackspooler Name Role Phone Matheus Boggs MD Primary Care Provider + [phone] Encounter Details Date Type Department Care Team (Late st Contact Info) Description 01/31/2020 Transcribed Document [facility] [place] [facility] [place] [address] ProviderCristopher MD [address] [place] [address] Social History Tobacco Use Types Packs/Day [...] on filedocumented in this encounter Care Teams Jackspooler Relationship Specialty Start Date End Date Matheus Boggs MD [address] [place] [address] [place] [phone] PCP - General Family Medicine 09/05/22 documented as of this encounter
--- OUTSIDE RECORDS SUMMARY | 2025-03-16 10:25 | XMS_ITS | Encounter Summary ---
Author Organization [employer] ([place], [place], [place], [place]) Address [address] [place] [address] Care Team Providers Care Customer Field Representative Name Role Phone Matheus Boggs MD Primary Care Provider + [phone] Encounter Details Date Type Department Care Team (Late st Contact Info) Description 01/31/2020 Transcribed Document [facility] [place] [facility] [place] [address] ProviderCristopher MD [address] [place] [phone] Social History Tobacco Use Types Packs/Day Years [...] : Yes Joint AcademyType : Online Joint Silviculture Forester Name : Type of Surgery : Total [...] understanding Ed-Orthopedic Pre-Op, Other : Verbalizes understanding CHIKA ROBB RN-Ortho Nurse Navigator - 01/31/2020 12:55 EDT documented in this encounter Plan of Treatment Not on file documented as of this encounter Visit Diagnoses Not on filedocumented in this encounter Care Teams Customer Field Representative Relationship Specialty Start Date End Date Matheus Boggs MD [address] [place] [facility] [address] [place] [phone] PCP - General Family Medicine 09/05/22 documented as of this encounter
--- OUTSIDE RECORDS SUMMARY | 2025-03-16 10:25 | XMS_ITS | Encounter Summary ---
Author Organization [employer] ([place], [place], [place], [place]) Address [address] [place] [address] Care Team Providers Care Special Forces Warrant Officer Name Role Phone Matheus Boggs MD Primary Care Provider + [phone] Encounter Details Date Type Department Care Team (Late st Contact Info) Description 02/01/[address] [facility] Radiology [address] [place] [phone] Chris Keyes MD [address] [place] [address] Social History Tobacco Use Types Packs/Day Years [...] is a 74 yo female admitted to [facility] per Dr. Gonzalez for a right total knee arthroplasty. Preoperatively patient was found to have advanced osteoarthritis of the right knee and elected surgical intervention after failing conservative treatment. Patient is followed perioperatively while hospitalized for medical management. Initial visit on floor - Denies prior stroke or seizure. Denies [place], CHF or cardiac arrhythmia. Denies DM. Denies [...] mg, Oral, BID allerlgy shots 1, SubCutaneous, E8Litdy Arnuity Ellipta 100 mcg, PRN, Inhalation, Z41JOsm aspirin 81 mg oral tablet 81 mg = 1 Tab, Oral, BID Colace 100 mg oral capsule 100 mg = 1 Cap, PRN, Oral, BID ferrous gluconate 324 mg (37.5 mg elemental iron) oral tablet 324 mg = 1 Tab, Oral, Daily fexofenadine 180 mg, Oral, Daily fluticasone 50 mcg/inh nasal spray 2 [place], PRN, Nasal, BID hydrochlorothiazide-irbesartan 12.5 mg-150 mg [...] mg/dL 02/01/2020 04:53 Glucose Level 148 mg/dL [place] 02/01/2020 04:53 Calcium Level 8.4 mg/dL 02/01/2020 04:53 Creatinine Level 0.70 mg/dL 02/01/2020 04:53 Cardiac Markers (Current Encounter/Past 24 Hours) No Cardiac Marker Results Found (Past 24 Hours) CBC Results (Current Encounter/Past 24 Hours) WBC 11.5 K/uL [place] 02/01/2020 04:28 Hct 37.7 % 02/01/2020 04:28 [...] mg/dL 02/01/2020 04:53 Glucose Level 148 mg/dL [place] 02/01/2020 04:53 Calcium Level 8.4 mg/dL 02/01/2020 [...] ms QTC Calculation(Bezet) : 420 ms P [place] : 16 degrees R [place] : -6 degrees T [place] : 25 degrees Sinus bradycardia Cannot rule out Anterior infarct (cited on or before 13-JAN-2020) Abnormal ECG When compared with ECG of 13-JAN-2020 10:53, No significant change was found Confirmed by JAKUB ORTIZ M.D. ([id number]), news videotape editor LILIAN BENÍTEZ ([id number]) on 01/13/2020 3:58:46 [...] on filedocumented in this encounter Care Teams Special Forces Warrant Officer Relationship Specialty Start Date End Date Matheus Boggs MD [address] [facility] [address] [place] [phone] PCP - General Family Medicine 09/05/22 documented as of this encounter
--- OUTSIDE RECORDS SUMMARY | 2025-03-16 10:25 | XMS_ITS | Encounter Summary ---
Author Organization [employer] ([place], [place], [place], [place]) Address [address] [place] [address] Care Team Providers Care Restaurant Delivery Driver Name Role Phone Matheus Boggs MD Primary Care Provider + [phone] Encounter Details Date Type Department Care Team (Late st Contact Info) Description 01/31/2020 Transcribed Document [facility] [place] [facility] [place] [address] ProviderCristopher MD [address] [place] [address] Social History Tobacco Use Types Packs/Day [...] EDU BARNES PT - 02/01/2020 12:07 EDT Custodial Goals Mobility/Bed Mobility LTG PT Grid Goal [...] : R knee ROM 0-102 degrees, Joint golf coach present during treatment. Pt ambulated x [...] the text rendition version of the form. [place] PT Charges PT Therap. Exercise 15 min : 2 Gait Training Each 15 Min : 1 EDU BARNES, PT - 02/01/2020 12:07 EDT Electronically signed by Kee [facility] Conversion Dispensing Audiologist Cerner at 11/06/2022 1:07 PM CDT documented in this encounter Plan of Treatment Not on file documented as of this encounter Visit Diagnoses Not on filedocumented in this encounter Care Teams Restaurant Delivery Driver Relationship Specialty Start Date End Date Matheus Boggs MD [address] [place] [facility] [address] [place] [phone] PCP - General Family Medicine 09/05/22 documented as of this encounter
--- OUTSIDE RECORDS SUMMARY | 2025-03-16 10:25 | XMS_ITS | Clinical Summary ---
Author Organization [facility] Address [address] [place] [address] Care Team Providers Care Operations Support Specialist Name Role Phone Matheus Boggs MD Primary Care Provider Mitchell Oliva MD Unavailable [phone] Allergies Active Allergy Reactions Criticality Noted Date [...] Active fluticasone (FLONASE) 50 mcg/actuation nasal spray [place] 2 Sprays into nose 2 times daily. [...] history exists Medical Devices Implanted Type Area Traffic Signal Technician Device Identifier Shelf Expiration Date Model / Serial / Lot Tissue Matrix [id number] Implanted:Qty: 1 on 09/16/2014 by Mitchell Oliva MD at [facility] Abdomen * e[employer]on 05/20/2016 [id number] / / [id number] Procedures Procedure Name Priority Date/Time Associated Diagnosis [...] AXIAL SKELETON (09/29/2000 9:30 AM EST) Narrative [facility] EXTERNAL RAD - 09/29/2000 10:13 PM [...] fective for All Dates) Name:Eulalia Walker Member ID:[id number] Relation to Subscriber:Self Name:Eulalia Walker Subscriber ID:[id number] Payer ID:[id number] Group ID:Not on file Type:Medicare Address: [facility] [address] [facility] [place] [address] [facility] MEDICARE [place] [id number] [facility] Care Teams Operations Support Specialist Relationship Specialty Start Date End Date Matheus Boggs MD [address] [place] [address] [place] [address] PCP - General Family Medicine 09/14/14 Mitchell Oliva MD [facility] [address] [place] [address] General Surgery 07/28/22
--- OUTSIDE RECORDS SUMMARY | 2025-03-16 10:25 | XMS_ITS | Encounter Summary ---
Author Organization [employer] ([place], [place], [place], [place]) Address [address] [place] [address] Care Team Providers Care Lining Maker Hand Name Role Phone Matheus Boggs MD Primary Care Provider + [phone] Encounter Details Date Type Department Care Team (Late st Contact Info) Description 02/07/2020 Transcribed Document [facility] [place] Family Medicine [facility] [place] [address] ProviderCristopher MD [address] [place], [place] [phone] Social History Tobacco Use Types Packs/Day Years [...] DANGELO PA-ORT - 03:30 PM Previously Documented Prison Patient Stated Goal : No Patient Stated Goal Tere Carrasco RN-Navigator - 02/07/2020 15:21 EDT documented in this encounter Plan of Treatment Not on file documented as of this encounter Visit Diagnoses Not on filedocumented in this encounter Care Teams Lining Maker Hand Relationship Specialty Start Date End Date Matheus Boggs MD [address] [facility] [address] [place] [address] PCP - General Family Medicine 09/05/22 documented as of this encounter
--- OUTSIDE RECORDS SUMMARY | 2025-03-16 10:25 | XMS_ITS | Encounter Summary ---
Author Organization [employer] ([place], [place], [place], [place]) Address [address] [place] [address] Care Team Providers Care Supervisor Mirror Fabrication Name Role Phone Matheus Boggs MD Primary Care Provider + [phone] Encounter Details Date Type Department Care Team (Late st Contact Info) Description 01/31/[address] [facility] [place] Family [place] [facility] [place] [address] ProviderCristopher MD [address] [place] [address] Social History Tobacco Use Types Packs/Day [...] Cristopher ProviderMD - 01/31/2020 10:35 AM CDT [facility] Main OR PACU Summary Primary Physician: DEAN ALVA MD-ORT Finalized Date/Time: 01/31/20 15:49:48 Pt. Name: MARY WALKER/Sex: 1945 Female Med Rec #: [id number] Physician: DEAN ALVA MD-ORT Financial #: [id number] Pt. Type: O Room/Bed: 648/1 Admit/Disch: 01/31/20 06:33:00 - Institution: [facility] Main OR PACU I Case Times [...] Modify Pick List Electronically signed by Kee [facility] Conversion Computerized Machine Fabric Cutter Cerner at 11/06/2022 1:00 PM CDT documented in this encounter Plan of Treatment Not on file documented as of this encounter Visit Diagnoses Not on filedocumented in this encounter Care Teams Supervisor Mirror Fabrication Relationship Specialty Start Date End Date Matheus Boggs MD [address] [facility] [address] [place] [phone] PCP - General Family Medicine 09/05/22 documented as of this encounter
--- OUTSIDE RECORDS SUMMARY | 2025-03-16 10:25 | XMS_ITS | Encounter Summary ---
Author Organization [employer] ([place], [place], [place], [place]) Address [address] [place] [address] Care Team Providers Care Fire Sprinkler Service Technician Name Role Phone Matheus Boggs MD Primary Care Provider + [phone] Encounter Details Date Type Department Care Team (Late st Contact Info) Description 01/31/2020 Transcribed Document [facility] Radiology [address] [place] [phone] Chris Keyes MD [address] [place] [address] Social History Tobacco Use Types Packs/Day Years [...] is a 74 yo female admitted to [facility] per Dr. Gonzalez for a right total knee arthroplasty. Preoperatively patient was found to have advanced osteoarthritis of the right knee and elected surgical intervention after failing conservative treatment. Patient is followed perioperatively while hospitalized for medical management. Initial visit on floor - Denies prior stroke or seizure. Denies [place], CHF or cardiac arrhythmia. Denies DM. Denies [...] mg, Oral, BID allerlgy shots 1, SubCutaneous, [id number] Arnuity Ellipta 100 mcg, PRN, Inhalation, [id number] fexofenadine 180 mg, Oral, Daily fluticasone 50 mcg/inh nasal spray 2 [place], PRN, Nasal, BID hydrochlorothiazide-irbesartan 12.5 mg-150 mg [...] ms QTC Calculation(Bezet) : 420 ms P [place] : 16 degrees R [place] : -6 degrees T [place] : 25 degrees Sinus bradycardia Cannot rule out Anterior infarct (cited on or before 13-JAN-2020) Abnormal ECG When compared with ECG of 13-JAN-2020 10:53, No significant change was found Confirmed by JAKUB ORTIZ M.D. ([id number]), photo editor LILIAN BENÍTEZ ([id number]) on 01/13/2020 3:58:46 [...] and treatment plan made in conjunction with Blessnig Keyes MD Scribed by Sneha Tirado documented in this encounter Plan of Treatment Not on file documented as of this encounter Visit Diagnoses Not on filedocumented in this encounter Care Teams Fire Sprinkler Service Technician Relationship Specialty Start Date End Date Matheus Boggs MD [address] [place] [facility] [address] [place] [phone] PCP - General Family Medicine 09/05/22 documented as of this encounter
--- OUTSIDE RECORDS SUMMARY | 2025-03-16 10:25 | XMS_ITS | Encounter Summary ---
Author Organization [employer] ([place], [place], [place], [place]) Address [address] [place] [address] Care Team Providers Care Media Marketing Specialist Name Role Phone Matheus Boggs MD Primary Care Provider + [phone] Encounter Details Date Type Department Care Team (Late st Contact Info) Description 01/31/2020 Transcribed Document [facility] [place] [facility] [place] [address] ProviderCristopher MD [address] [place] [address] Social History Tobacco Use Types Packs/Day [...] on filedocumented in this encounter Care Teams Media Marketing Specialist Relationship Specialty Start Date End Date Matheus Boggs MD [address] [place] [address] [place] [phone] PCP - General Family Medicine 09/05/22 documented as of this encounter
--- OUTSIDE RECORDS SUMMARY | 2025-03-16 10:26 | XMS_ITS | Encounter Summary ---
Author Organization [employer] ([place], [place], [place], [place]) Address [address] [place] [address] Care Team Providers Care Broadcast News Producer Name Role Phone Matheus Boggs MD Primary Care Provider + [phone] Encounter Details Date Type Department Care Team (Late st Contact Info) Description 11/06/2020 Transcribed Document [facility] [place] [address] ProviderCristopher MD [address] [place] [address] Social History Tobacco Use Types Packs/Day [...] Kenya Schmitz, Pharmacist - 11/06/2020 14:26 EDT documented in this encounter Plan of Treatment Not on file documented as of this encounter Visit Diagnoses Not on filedocumented in this encounter Care Teams Broadcast News Producer Relationship Specialty Start Date End Date Matheus Boggs MD [address] [place] [facility] [address] [place] [phone] PCP - General Family Medicine 09/05/22 documented as of this encounter
--- OUTSIDE RECORDS SUMMARY | 2025-03-16 10:26 | XMS_ITS | Encounter Summary ---
Author Organization [employer] ([place], [place], [place], [place]) Address [address] [place] [address] Care Team Providers Care Health Information Director Name Role Phone Matheus Boggs MD Primary Care Provider + [phone] Encounter Details Date Type Department Care Team (Late st Contact Info) Description 11/01/2020 Transcribed Document [facility] [place] [facility] [place] [address] ProviderCristopher MD [address] [place] [address] Social History Tobacco Use Types Packs/Day [...] 11/01/2020 13:07 EDT Electronically signed by Kee [facility] Conversion Chainstitch Binder Cerner at 11/06/2022 12:55 PM CDT documented in this encounter Plan of Treatment Not on file documented as of this encounter Visit Diagnoses Not on filedocumented in this encounter Care Teams Health Information Director Relationship Specialty Start Date End Date Matheus Boggs MD [address] [place] [facility] [address] [place] [phone] PCP - General Family Medicine 09/05/22 documented as of this encounter
--- OUTSIDE RECORDS SUMMARY | 2025-03-16 10:26 | XMS_ITS | Encounter Summary ---
Author Organization [employer] ([place], [place], [place], [place]) Address [address] [place] [address] Care Team Providers Care Propeller Driven Airplane Mechanic Name Role Phone Matheus Boggs MD Primary Care Provider + [phone] Encounter Details Date Type Department Care Team (Late st Contact Info) Description 11/06/2020 Transcribed Document [facility] [place] [facility] [place] [address] ProviderCristopher MD [address] [place] [address] Social History Tobacco Use Types Packs/Day [...] EDU BARNES, PT - 11/06/2020 14:22 EDT Veterinary Receptionist Goals Mobility/Bed Mobility LTG PT Grid Goal [...] on filedocumented in this encounter Care Teams Propeller Driven Airplane Mechanic Relationship Specialty Start Date End Date Matheus Boggs MD [address] [facility] [address] [place] [phone] PCP - General Family Medicine 09/05/22 documented as of this encounter
--- OUTSIDE RECORDS SUMMARY | 2025-03-16 10:26 | XMS_ITS | Encounter Summary ---
Author Organization [employer] ([place], [place], [place], [place]) Address [address] [place] [address] Care Team Providers Care Road Mechanic Name Role Phone Matheus Boggs MD Primary Care Provider + [phone] Encounter Details Date Type Department Care Team (Late st Contact Info) Description 11/01/[address] [facility] [place] Family Medicine [facility] [place] [address] ProviderCristopher MD [address] [place] [address] Social History Tobacco Use Types Packs/Day [...] On: 11/01/2020 14:30 EDT by JOSH MALIK, Button Puncher Primary Insurance Authorization Authorization and Policy Numbers : Insurance 1 Health Plan: MEDICARE Policy Number: [id number] Authorization Number: Insurance 2 Health Plan: AARP N Policy Number: [id number] Authorization Number: Insurance Primary Name : Medicare Authorization Status-Primary : No precert required Authorization Number-Primary : NPR for Medicare Authorized Service Begin Date-Primary : 11/06/2020 EDT Authorization Comments-Primary : Pt is brunilda for OUT PT total knee replacement on Friday11-06-20 Medicare: NPR Historical Authorization Comments-Primary : No Authorization Comments Found JOSH MALIK, Button Puncher - 11/01/2020 14:30 EDT Secondary Insurance Authorization Authorization and Policy Numbers : Insurance 1 Health Plan: MEDICARE Policy Number: [id number] Authorization Number: Insurance 2 Health Plan: AARP N Policy Number: [id number] Authorization Number: Insurance Secondary Name : AARP Authorized Service Begin Date-Secondary : 11/06/2020 EDT Historical Authorization Comments-Secondary : No Authorization Comments Found JOSH MALIK, Button Puncher - 11/01/2020 14:30 EDT Electronically signed by Kee [facility] Conversion Washer Engineer Cerner at 11/06/2022 12:50 PM CDT documented in this encounter Plan of Treatment Not on file documented as of this encounter Visit Diagnoses Not on filedocumented in this encounter Care Teams Road Mechanic Relationship Specialty Start Date End Date Matheus Boggs MD [address] [place] [facility] [address] [place] [phone] PCP - General Family Medicine 09/05/22 documented as of this encounter
--- OUTSIDE RECORDS SUMMARY | 2025-03-16 10:26 | XMS_ITS | Encounter Summary ---
Author Organization [employer] ([place], [place], [place], [place]) Address [address] [place] [address] Care Team Providers Care Party Host Name Role Phone Matheus Boggs MD Primary Care Provider + [phone] Encounter Details Date Type Department Care Team (Late st Contact Info) Description 11/06/2020 Transcribed Document [facility] [place] Family Medicine [facility] [place] [address] ProviderCristopher MD [address] [place] [address] Social History Tobacco Use Types Packs/Day [...] HANNAH PEREZ OTR/L - 11/07/2020 11:41 EDT Agricultural Research Director Goals, OT Bathing LTG Grid Goal #1 [...] Plan for Treatment : Cont OT POC. HNANAH PEREZ OTR/L - 11/07/2020 11:41 EDT Pain [...] on filedocumented in this encounter Care Teams Party Host Relationship Specialty Start Date End Date Matheus Boggs MD [address] [place] [facility] [address] [place] [phone] PCP - General Family Medicine 09/05/22 documented as of this encounter
--- OUTSIDE RECORDS SUMMARY | 2025-03-16 10:26 | XMS_ITS | Encounter Summary ---
Author Organization [employer] ([place], [place], [place], [place]) Address [address] [place] [address] Care Team Providers Care Lighting Designer Name Role Phone Matheus Boggs MD Primary Care Provider + [phone] Encounter Details Date Type Department Care Team (Late st Contact Info) Description 11/06/2020 Transcribed Document [facility] [place] [facility] [place] [address] ProviderCristopher MD [address] [place] [address] Social History Tobacco Use Types Packs/Day [...] 11/06/2020 14:32 EDT Electronically signed by Kee, [facility] Conversion Quilting Machine Operator Cerner at 11/06/2022 12:55 PM CDT documented in this encounter Plan of Treatment Not on file documented as of this encounter Visit Diagnoses Not on filedocumented in this encounter Care Teams Lighting Designer Relationship Specialty Start Date End Date Matheus Boggs MD [address] [facility] [address] [place] [phone] PCP - General Family Medicine 09/05/22 documented as of this encounter
--- OUTSIDE RECORDS SUMMARY | 2025-03-16 10:26 | XMS_ITS | Encounter Summary ---
Author Organization [employer] ([place], [place], [place], [place]) Address [address] [place] [address] Care Team Providers Care Manufacturers Agent Name Role Phone Matheus Boggs MD Primary Care Provider + [phone] Encounter Details Date Type Department Care Team (Late st Contact Info) Description 11/06/2020 Transcribed Document [facility] [place] [facility] [place] [address] ProviderCristopher MD [address] [place] [address] Social History Tobacco Use Types Packs/Day [...] SHIRA SHARMA RN - 11/06/2020 17:09 EDT documented in this encounter Plan of Treatment Not on file documented as of this encounter Visit Diagnoses Not on filedocumented in this encounter Care Teams Manufacturers Agent Relationship Specialty Start Date End Date Matheus Boggs MD [address] [place] [facility] [address] [place] [phone] PCP - General Family Medicine 09/05/22 documented as of this encounter
--- OUTSIDE RECORDS SUMMARY | 2025-03-16 10:26 | XMS_ITS | Encounter Summary ---
Author Organization [employer] ([place], [place], [place], [place]) Address [address] [place] [address] Care Team Providers Care Alum Plant Operator Name Role Phone Matheus Boggs MD Primary Care Provider + [phone] Encounter Details Date Type Department Care Team (Late st Contact Info) Description 11/06/2020 Transcribed Document [facility] Radiology [address] [place] [phone] Lizz Gonzalez MD [facility] [place] [address] Social History Tobacco Use Types Packs/Day Years [...] Diagnosis Osteoarthritis left knee *Surgeon(s) Surgeon: Carlos Social Media Content Manager: Devin Ventura CSA *Procedure Narrative Patient identified [...] and PCL were resected. Next, distal femoral [place]oat pilot hole was drilled and the intramedullary [...] Bovie. Femur was sized. The FuZion gap oil field operator was placed and tensed. Posterior condyle resection as noted above. Drill holes made through the oil field operator and the appropriately sized four-in-one block [...] on filedocumented in this encounter Care Teams Alum Plant Operator Relationship Specialty Start Date End Date Matheus Boggs MD [address] [place] [facility] [address] [place] [phone] PCP - General Family Medicine 09/05/22 documented as of this encounter
--- OUTSIDE RECORDS SUMMARY | 2025-03-16 10:26 | XMS_ITS | Encounter Summary ---
Author Organization [employer] ([place], [place], [place], [place]) Address [address] [place] [address] Care Team Providers Care Marine Engineering Teacher Name Role Phone Matheus Boggs MD Primary Care Provider + [phone] Encounter Details Date Type Department Care Team (Late st Contact Info) Description 11/06/2020 Transcribed Document [facility] [place] Family Medicine [facility] [place] [address] ProviderCristopher MD [address] [place] [address] Social History Tobacco Use Types Packs/Day [...] Tx Plan/Goals Established w Patient : No EUD BARNES PT - 11/07/2020 11:58 EDT Chargemaster Specialist Goals Mobility/Bed Mobility LTG PT Grid Goal [...] ROM. Additional Objective Information : No Joint Supervisor Travel Trailer present throughout L knee ROM 0-96 degrees [...] the text rendition version of the form. [place] [facility] PT Charges PT Therap. Exercise 15 min : 1 Gait Training Each 15 Min : 1 EDU BARNES, PT - 11/07/2020 11:58 EDT Electronically signed by [facility], [facility] Conversion Enrollment Specialist Cerner at 11/06/2022 12:57 PM CDT documented in this encounter Plan of Treatment Not on file documented as of this encounter Visit Diagnoses Not on filedocumented in this encounter Care Teams Marine Engineering Teacher Relationship Specialty Start Date End Date Matheus Boggs MD [address] [facility] [address] [place] [phone] PCP - General Family Medicine 09/05/22 documented as of this encounter
--- OUTSIDE RECORDS SUMMARY | 2025-03-16 10:26 | XMS_ITS | Encounter Summary ---
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 VEHICLE OPERATOR 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 Chief Complaint L knee pain Review of [...] Oral, Daily Arnuity Ellipta: 100 mcg, Inhalation, [id number], PRN: Wheezing, 0 Refill(s) Levoxyl: 125 mcg, Oral, Daily, 0 Refill(s) Singulair: 10 mg, Oral, At Bedtime, 0 Refill(s) Ventolin HFA: 2 Puff, Inhalation, Q4H, PRN: as needed for wheezing, 0 Refill(s) acebutolol: 200 mg, Oral, BID, 0 Refill(s) fexofenadine: 180 mg, Oral, Daily, 0 Refill(s) fluticasone 50 mcg/inh nasal spray: 2 [place], Nasal, BID, PRN: Allergies, 16 Gram, 0 [...] Daily Arnuity Ellipta 100 mcg, PRN, Inhalation, V63LEry fexofenadine 180 mg, Oral, Daily fluticasone 50 mcg/inh nasal spray 2 [place], PRN, Nasal, BID hydrochlorothiazide-irbesartan 12.5 mg-150 mg [...] Problems Urinary tract infection / SNOMED CT 712703479 / Confirmed hypo Thyroid disease / SNOMED CT 266232844 / Confirmed Sinusitis / SNOMED CT 04812414 / Confirmed Seasonal allergies / SNOMED CT 8116558231 / Confirmed Renal calculus / SNOMED CT 915068881 / Confirmed Thyroid mass benign / SNOMED CT 0419038791 / Confirmed Irritable bowel syndrome / SNOMED CT 63339112 / Confirmed Incontinence/Frequency / SNOMED CT 21374376 / Confirmed Hyperlipidemia / SNOMED CT 98447557 / Confirmed High blood pressure / SNOMED CT 58819223 / Confirmed Hiatal hernia / SNOMED CT 806304882 / Confirmed Hemorrhoids / SNOMED CT 048975309 / Confirmed Hard of hearing has aides / SNOMED CT 543108343 / Confirmed Shortness of breath / SNOMED CT 151439624 / Confirmed Difficulty swallowing / SNOMED CT 48531763 / Confirmed H/O bilateral Cataract / SNOMED CT 003216729 / Confirmed Cardiac syndrome X / SNOMED CT 379395466 / Confirmed Bursitis / SNOMED CT 708733115 / Confirmed At risk for sleep apnea / IMO 49945784 / Confirmed Asthma / SNOMED CT 501146453 / Confirmed Arthritis osteo / SNOMED CT 8249551 / Confirmed Angina / SNOMED CT 437822985 / Confirmed Allergic rhinitis / SNOMED CT 436074645 / Confirmed, Active Problems (23) Allergic rhinitis [...] repair. right knee replacement. EGD - Esophagogastroduodenoscopy ([id number]). catarct ext. iol ou. Social History Social [...] Extraocular movements are intact, glasses. HENT: Normocephalic, [place]. Neck: Supple, Non-tender. Respiratory: Lungs are clear to auscultation, Respirations are non-labored. Cardiovascular: Normal rate, Regular rhythm, No murmur, No gallop, No edema. Gastrointestinal: Soft, Non-tender. Genitourinary: No costovertebral angle tenderness. Lymphatics: No lymphadenopathy neck, axilla, groin. Musculoskeletal: painful ROM L knee, LLE weakness, see comprehensive ortho exam in office notes. Integumentary: Warm, Dry, [place]. Neurologic: Alert, Oriented. Psychiatric: Cooperative, Appropriate mood [...] on filedocumented in this encounter Care Teams Margin Analyst Relationship Specialty Start Date End Date Matheus Boggs MD [address] [place] [facility] [address] [place] [phone] PCP - General Family Medicine 09/05/22 documented as of this encounter
--- OUTSIDE RECORDS SUMMARY | 2025-03-16 10:26 | XMS_ITS | Encounter Summary ---
Author Organization [employer] ([place], [place], [place], [place]) Address [address] [place] [address] Care Team Providers Care Recycling Collections Driver Name Role Phone Matheus Boggs MD Primary Care Provider + [phone] Encounter Details Date Type Department Care Team (Late st Contact Info) Description 11/06/2020 Transcribed Document [facility] [place] [facility] [place] [address] ProviderCristopher MD [address] [place] [address] Social History Tobacco Use Types Packs/Day [...] : Yes Joint AcademyType : Online Joint Truck Crane Operator Helper Name : daughters: Genesis Aponte Sherry Type of Surgery : Total Knee Replacement, Left Does Patient Have a Walker? : Yes Anticipated Discharge Plan : Home Health PT Anticipated Discharge Plan Comment : Patient plans to d/c home tomorrow with the help of her daughters. She would like to use [facility] for home PT. A pre-referral was sent [...] Tere Carrasco RN-Navigator - 11/06/2020 8:58 EDT documented in this encounter Plan of Treatment Not on file documented as of this encounter Visit Diagnoses Not on filedocumented in this encounter Care Teams Recycling Collections Driver Relationship Specialty Start Date End Date Matheus Boggs MD [address] [facility] [address] [place] [phone] PCP - General Family Medicine 09/05/22 documented as of this encounter
--- OUTSIDE RECORDS SUMMARY | 2025-03-16 10:26 | XMS_ITS | Clinical Summary ---
Author Organization [employer] [facility] Address [address] [place] [address] Phone Care Team Providers Care Web Master Name Role Phone Matheus Boggs MD Primary Care Provider + [phone] Social History Tobacco Use Types Packs/Day Years [...] A AND B AARP SUPPLEMENTAL Care Teams Web Master Relationship Specialty Start Date End Date Matheus Boggs MD [address] [place] [address] [place] [phone] PCP - General Family Medicine 12/02/16
--- OUTSIDE RECORDS SUMMARY | 2025-03-16 10:26 | XMS_ITS | Encounter Summary ---
Author Organization [employer] ([place], [place], [place], [place]) Address [address] [place] [address] Care Team Providers Care Director Of Services Name Role Phone Matheus Boggs MD Primary Care Provider + [phone] Encounter Details Date Type Department Care Team (Late st Contact Info) Description 11/06/2020 Transcribed Document [facility] Family Medicine [facility] [place] [address] ProviderCristopher MD [address] [place] [address] Social History Tobacco Use Types Packs/Day [...] Cristopher ProviderMD - 11/06/2020 10:20 AM CDT [facility] Main OR IntraOp Summary Primary Physician: DEAN ALVA MD-MARIANELA Finalized Date/Time: 11/07/20 10:33:31 Pt. Name: MELISSA SIMON D.O.B./Sex: 1945 Female Med Rec #: [id number] Physician: DEAN ALVA MD-ORT Financial #: [id number] Pt. Type: O Room/Bed: [facility] Admit/Disch: 11/06/20 06:53:00 - Institution: [facility] IntraOp Case Attendance Entry 1 Entry 2 Entry 3 Case Attendee DEAN ALVA, JORGE A MUÑIZ MD-MARGA ESTES MD-ORMarycarmen MARGIN TRIMMER, BRAKE REPAIRER BUS Role Performed Surgeon/Proceduralist, Anesthesiologist of BRAKE REPAIRER BUS/Nurse Powder Coater First Record Time In 11/06/20 09:48:00 11/06/20 [...] ANITA MEJÍA, Warren Robles, Surgical OTHER, ATTENDEE Embedded Software Development Engineer Role Performed Group Insurance Special Agent, First Scrub, First Scrub, Second Time In 11/06/20 09:48:00 11/06/20 09:48:00 11/06/20 09:48:00 Time Out 11/06/20 11:34:00 11/06/20 11:34:00 11/06/20 11:34:00 Procedure Knee Total Joint Knee Total Joint Knee Total Joint Replacement(Left) Replacement(Left) Replacement(Left) Other Attendee Kenneth Ribera - [facility] Superficial Wound Closed By: Last Modified By: Kanwal Tolbert Rn Moore, Kimberly A, Rn Moore, Kimberly A, Rn 11/06/20 12:08:10 11/06/20 12:08:10 11/06/20 12:08:10 Entry 7 Entry 8 Entry 9 Case Attendee Jamshid Whitney I, Kanwal Esparza Rn OTHER, ATTENDEE #1 Role Performed Grants Assistant, First Grants Assistant, Second Vendor Time In 11/06/20 09:48:00 11/06/20 09:48:00 11/06/20 09:48:00 Time Out 11/06/20 11:34:00 11/06/20 11:34:00 11/06/20 11:34:00 Procedure Knee Total Joint Knee Total Joint Knee Total Joint Replacement(Left) Replacement(Left) Replacement(Left) Other Attendee orientee Joao Jason Superficial Wound Closed By: Last Modified By: Kanwal Tolbert, Kanwal Esparza Rn Moore, Kimberly A, Rn 11/06/20 12:08:10 11/06/20 12:08:10 11/06/20 12:08:[address] [facility] IntraOp Case Attendance Audit 11/06/20 12:08:10 Mattress Weaver: [id number] Modifier: [id number] 1 <+> Time Out 1 <*> Procedure [...] Procedure Knee Total Joint Replacement(Left) 11/06/20 10:57:55 Mattress Weaver: [id number] Modifier: [id number] <+> 9 Case Attendee <+> 9 Role Performed <+> 9 Time In <+> 9 Procedure <+> 9 Other Attendee 11/06/20 10:28:37 Mattress Weaver: [id number] Modifier: [id number] <+> 1 Time In <+> 1 Procedure [...] 8 <*> Procedure Knee Total Joint Replacement(Left) [facility] IntraOp Case Times Entry 1 Patient In Room Time 11/06/20 09:48:00 Out Room Time 11/06/20 11:34:00 Anesthesia Start Time 11/06/20 09:48:00 Stop Time 11/06/20 11:34:00 Surgery / Procedure Times Start Time 11/06/20 10:20:00 Stop Time 11/06/20 11:31:00 Last Modified By: Kanwal Tolbert Rn 11/06/20 12:08:[address] [facility] IntraOp Case Times Audit 11/06/20 12:08:08 Mattress Weaver: [id number] Modifier: [id number] <+> 1 Out Room Time <+> 1 Stop Time <+> 1 Stop Time 11/06/20 10:29:31 Mattress Weaver: [id number] Modifier: [id number] <+> 1 Start Time [facility] IntraOp Cautery Entry 1 ESU Identification Cautery Type Monopolar ESU ID Number [id number] ID Type Hospital Number Cautery Settings Cut Setting 50 Coag Setting 50 ESU Grounding Pad Ground Pad Type Adult Grounding Pad Site Right Lower Abdomen Grounding Pad Jamshid Whitney RN Applied By Grounding Pad Site Warm, Dry, Intact Skin Condition Before Cautery Grounding Pad Site Unchanged Skin Condition After Cautery Last Modified By: Jamshid Whitney RN 11/06/20 10:01:[address] [facility] IntraOp Communication Entry 1 Communication To Family/Significant other Comment start Communication By Jamshid Whitney RN Date and Time 11/06/20 10:22:00 Last Modified By: Jamshid Whitney RN 11/06/20 10:22:[address] [facility] IntraOp Counts Verification Entry 1 Procedure Knee Total Joint Replacement(Left) Count Info Count Type Sponge, Sharps, Miscellaneous Counts Verification Baseline/pre-procedure Sequence Count Results Not Applicable Counts Performed By Count Performed By Warren Morris, Surgical (Scrub) Embedded Software Development Engineer Count Performed By Kanwal Tolbert Rn (RN) Last Modified By: Jamshid Whitney RN 11/06/20 10:00:[address] [facility] IntraOp Counts Final Entry 1 Procedure Knee Total Joint Replacement(Left) Final Count Info Count Type Sponge, Sharps, Miscellaneous Counts Verification Skin Closure/end of Sequence procedure Count Results Correct, surgeon notified Counts Performed By Count Performed By OTHER, ATTENDEE (Scrub) Count Performed By Jamshid Whitney I RN (RN) Last Modified By: Jamshid Whitney RN 11/06/20 11:16:[address] [facility] IntraOp Counts Final Audit 11/06/20 11:16:01 Mattress Weaver: [id number] Modifier: [id number] 1 <*> Procedure Knee Total Joint Replacement(Left) 11/06/20 11:15:55 Mattress Weaver: [id number] Modifier: [id number] 1 <*> Procedure Knee Total Joint Replacement(Left) 1 <+> Count Performed By (Scrub) 1 <+> Count Performed By (RN) [facility] IntraOp Cultures and Spec Summary Entry 1 Cultrures and Specimens Specimen Ordered: Yes Test(s) Routine/Path-Lab Requested/Final Disposition Last Modified By: Jamshid Whitney RN 11/06/20 10:25:46 General Comments: SPECIMEN: A. left knee bone and tissue [facility] IntraOp Departure from OR Entry 1 Integumentary Assessment Integumentary WDL Assessment WDL Transfer/Handoff Transfer to PACU Phase I Handoff Method Phone call Post-op Transport Bed (including Via specialty) Patient Transport DORETHAWMARGA ALICEA, Accompanied by ANGELA COBIAN Last Modified By: Jamshid Whitney RN 11/06/20 10:23:[address] [facility] IntraOp Dressing and Packing Entry 1 Type Dressing Location OPERATIVE KNEE Wound Dressing Item Occlusive dressing, Skin Closure Glue Other Comments AQUACEL AG Last Modified By: Jamshid Whitney RN 11/06/20 11:15:[address] [facility] IntraOp Fire Risk Assessment Entry 1 Fire Info Surgical Site or 0- No Incision Above the Xyphoid Open O2 Source 0- No (Mask or Cannula) Available Ignition 1- Yes (ESU, Laser, Light Source) Fire Risk 1 Assessment Score Fire Score Fire Risk Yes Assessment Complete Fire Risk Jamshid Whitney I self defense instructor Verified By Fire Risk 11/06/20 10:20:00 Assessment Verified Date/Time Fire Risk Standard Fire Yes Safety Precautions Followed Last Modified By: Jamshid Whitney RN 11/06/20 10:25:[address] [facility] IntraOp General Case Vp Biology 1 Case Information OR OR [address] [facility] Case Level 1 Room Verified Yes Wound Class I - Clean Specialty Orthopedic Anesthesia Type General ASA Class 2 Diagnosis Preop Diagnosis osteoarthritis left knee Postop Same As Preop No Postop Diagnosis see MD postop notes Last Modified By: Jamshid Whitney RN 11/06/20 10:28:[address] [facility] IntraOp Implant Log Entry 1 Entry 2 Entry 3 Type Implant (Synthetic) Implant (Synthetic) Implant (Synthetic) Implant Log Implant Type Bone Cement Hardware Hardware Tissue Implant Type Implant CEMENT BONE SMPLX PSN ASF MC 10MM VE L PATELLA CEMENTED Identification [id number] Description Implant Quantity 2 1 1 Implant Site left knee left knee left knee Implant Identification Model Number Implant Identification Serial Number Implant [id number] Identification Lot Number Implant [place] Eren:Eren Us Eren:Eren Identification Orthopaedics Lead Caregiver Name: Implant [id number] Identification Catalog Number Implant Size Implant Has an Yes Yes Yes Expiration Date Implant Expiration 10/18/21 06/03/25 08/26/28 Date Wasted Radioactive Material Time Implanted Tissue Implant Continue for Tissue Implant Documentation Tissue Identification Number Graft Prep Per Lead Caregiver Instructions: Tissue Preparation Method: Reconstitution Solution: Reconstitution Solution Lot Number Reconstitution Solution Expiration Date: Thawing Solution Thawing Solution Lot Number Thawing Solution Expiration Date Preparation Materials, Other Preparation Materials, Other Lot Number Preparation Materials, Other Expiration Date Tissue Prepared/Processed By Lead Caregiver Paperwork Completed Implant Type Comment Last Modified By: Jamshid Whitney RN Kesten, Robert I, RN Kesten, Robert I, RN 11/06/20 11:01:45 11/06/20 11:01:45 11/06/20 11:01:45 Entry 4 Entry 5 Type Implant (Synthetic) Implant (Synthetic) Implant Log Implant Type Hardware Hardware Tissue Implant Type Implant FEM CEMENTED NARROW SZ TIB STEM NATURAL L Identification [id number] Description Implant Quantity 1 1 Implant Site left knee left knee Implant Identification Model Number Implant Identification Serial Number Implant Identification Lot Number Implant Eren:Eren Us Eren:Eren Us Identification Lead Caregiver Name: Implant [id number] Identification Catalog Number Implant Size Implant Has an Yes Yes Expiration Date Implant Expiration 05/08/30 06/12/30 Date Wasted Radioactive Material Time Implanted Tissue Implant Continue for Tissue Implant Documentation Tissue Identification Number Graft Prep Per Lead Caregiver Instructions: Tissue Preparation Method: Reconstitution Solution: Reconstitution Solution Lot Number Reconstitution Solution Expiration Date: Thawing Solution Thawing Solution Lot Number Thawing Solution Expiration Date Preparation Materials, Other Preparation Materials, Other Lot Number Preparation Materials, Other Expiration Date Tissue Prepared/Processed By Lead Caregiver Paperwork Completed Implant Type Comment Last Modified By: Jamshid Whitney RN Kesten, Robert I, RN 11/06/20 11:01:45 11/06/20 11:01:[address] [facility] IntraOp Intraoperative Assessment Entry 1 Handoff Method [...] Modified By: Jamshid Whitney RN 11/06/20 10:29:[address] [facility] IntraOp Intraoperative Assessment Audit 11/06/20 10:29:47 Mattress Weaver: [id number] Modifier: [id number] 1 <+> Patient is Latex Sensitive 1 <+> Isolation Precautions Noted 1 <*> Skin Assessment Verified Yes [facility] IntraOp Intraoperative Equipment Entry 1 Entry 2 Type Equipment Equipment Equipment Equipment Darleen Suction System Darleen Suction System ID Number [id number] Setting Intraop Monitoring Electrocardiogram Five lead placement Five lead placement (ECG) Electrode Placement Blood Pressure Non-Invasive BP Device Non-Invasive BP Device Source Blood Pressure Location Pulse Oximeter Probe Site Antiembolic Devices Antiembolic Devices Sequential compression Sequential compression device, knee high device, knee high, Antiembolic hose, knee high Antiembolic Device Right Right Location Antiembolic Device [id number] ID Number Antiembolic Device Setting Scopes Flexible Endoscopes Used Scope Serial Number/Identificatio n Number Photo/Video Documentation Photo Video Intraop Equipment SCD on non operative SCD on non operative Comment (right) leg and working (right) leg and working prior to induction prior to induction; SAMIA hose on right leg Last Modified By: Jamshid Whitney RN Kesten, Robert I, RN 11/06/20 10:32:09 11/06/20 10:32:[address] [facility] IntraOp Intraoperative Equipment Audit 11/06/20 10:32:09 Mattress Weaver: [id number] Modifier: [id number] 1 <*> Equipment Darleen Suction System 1 <*> ID Number [id number] <*> Electrocardiogram (ECG) Electrode Five lead placement Placement 1 <*> Antiembolic Devices Sequential compression device, knee high 1 <*> Antiembolic Device Location Right 1 <*> Blood Pressure Source Non-Invasive BP Device 1 <*> Intraop Equipment Comment SCD on non operative (right) leg and working prior to induction 1 <*> Type Equipment 1 <*> Antiembolic Device ID Number [id number] <+> 2 Equipment <+> 2 ID Number <+> 2 Electrocardiogram (ECG) Electrode Placement <+> 2 Antiembolic Devices <+> 2 Antiembolic Device Location <+> 2 Blood Pressure Source <+> 2 Intraop Equipment Comment <+> 2 Type <+> 2 Antiembolic Device ID Number [facility] IntraOp Medication Admin Entry 1 Entry 2 Entry 3 Medication/Irrigant Bacitracin 50,00units vancomycin 1Gm vial - hydrogen peroxide 16oz powder vial [id number] - [id number] Combo Med List Time Administered Route of [...] 40 mcg + Sodium Chloride to field [facility] IntraOp Medication Admin Audit 11/06/20 10:43:32 Mattress Weaver: [id number] Modifier: [id number] 1 <*> Medication/Irrigant Bacitracin 50,00units powder vial 1 <*> Medication/Irrigant Bacitracin 50,00units powder vial 1 <*> Medication/Irrigant Bacitracin 50,00units powder vial 1 <*> Route of Administration irrigation 1 <*> Route of Administration irrigation 3 <*> Medication/Irrigant hydrogen peroxide 16oz - [id number] 3 <*> Route of Administration 3 <*> Administered By DEAN ALVA MD-ORT 11/06/20 10:42:25 Mattress Weaver: [id number] Modifier: [id number] 2 <*> Medication/Irrigant vancomycin 1Gm vial - [id number] 2 <*> Medication/Irrigant vancomycin 1Gm vial - [id number] 2 <*> Route of Administration 2 <*> Route of Administration 2 <*> Administered By DEAN ALVA MD-ORT 2 <*> Administered By DEAN ALVA MD-ORT [facility] IntraOp Patient Positioning Entry 1 Procedure Knee [...] By DEAN ALVA MD-ORT, MARGA ALBERTS APRN, BRAKE REPAIRER BUS, Jamshid Whitney I, JERZY, Kanwal Tolbert Rn Position Verified Positioning Yes Verified by Anesthesia Positioning Yes Verified by Surgeon Last Modified By: Jamshid Whitney RN 11/06/20 10:39:[address] [facility] IntraOp Sign In Entry 1 Patient, Site, [...] Modified By: Jamshid Whitney RN 11/06/20 10:28:[address] [facility] IntraOp Sign Out Entry 1 RN Confirmation [...] Modified By: Jamshid Whitney RN 11/06/20 11:15:[address] [facility] IntraOp Sign Out Audit 11/06/20 11:15:30 Mattress Weaver: [id number] Modifier: [id number] <+> 1 RN Sign Out Signature Date/Time [facility] IntraOp Skin Prep Entry 1 Procedure Knee Total Joint Replacement(Left) Prescribed Yes Pre-Surgical Prep Completed Prep Area OPERATIVE THIGH TO TOES CIRCUMFRENTIALLY Intraop Prep Integumentary WDL Assessment WDL Prep Agents Alcohol, Chloraprep, DuraPrep, Chlorhexadine gluconate Prep by Jamshid Whitney RN Hair Removal Methods No hair removal performed Last Modified By: Jamshid Whitney RN 11/06/20 10:28:[address] [facility] IntraOp Surgical Procedures Entry 1 Procedure Knee Total Joint Replacement Modifiers Left Additional LEFT TOTAL KNEE Procedure ARHTROPLASTY Description Primary Procedure Yes Primary Surgeon DEAN ALVA MD-ORT Start 11/06/20 10:20:00 Stop 11/06/20 11:31:00 Anesthesia Type General Specialty Orthopedic Wound Class I - Clean Last Modified By: Kanwal Tolbert Rn 11/06/20 12:08:[address] [facility] IntraOp Surgical Procedures Audit 11/06/20 12:08:12 Mattress Weaver: [id number] Modifier: [id number] <+> 1 Stop 11/06/20 11:15:33 Mattress Weaver: [id number] Modifier: [id number] <+> [address] [facility] IntraOp Temp Regulation Devices Entry 1 Temp Regulation Temperature Forced Air Warming Regulation Device device, Warm blankets, Room temperature Temperature 63139 Regulation Device Serial/Unit Number Temperature Upper body Regulation Site Temperature Device 43 DEGREES CELCIUS Setting Temperature MARGA ALBERTS, Regulation Device MARGIN TRIMMER, BRAKE REPAIRER BUS Applied by Last Modified By: Jamshid Whitney RN 11/06/20 10:29:[address] [facility] IntraOP Time Out Entry 1 Procedure to [...] Modified By: Jamshid Whitney RN 11/06/20 10:21:[address] [facility] IntraOp Tourniquet Entry 1 Type Pneumatic Serial/Unit Number [id number] Setting 300 mmHg Pheumatic Yes Tourniquet Checked Per Protocol Size 34 inches Placement Thigh, left upper Skin Protection - Yes Padded Under Cuff Applied By DEAN ALVA MD-ORT Removed By DEAN ALVA MD-ORMarycarmen Times Start Time 11/06/20 10:20:00 Stop Time 11/06/20 11:06:00 Last Modified By: Kanwal Tolbert Rn 11/06/20 12:09:[address] [facility] IntraOp Tourniquet Audit 11/06/20 12:09:31 Mattress Weaver: [id number] Modifier: [id number] 1 <*> Setting 300 mmHg 1 <*> Applied By DEAN ALVA MD-ORMarycarmen 1 <*> Removed By ARTIE, THARUN, MD-ORT 1 <*> Placement Thigh, left upper 1 <*> Type Pneumatic 1 <*> Serial/Unit Number [id number] 1 <*> Pheumatic Tourniquet Checked Per Yes Protocol 1 <*> Size 34 inches 1 <*> Skin Protection - Padded Under Cuff Yes 1 <*> Start Time 11/06/20 10:20:00 1 <*> Stop Time 11/06/20 11:06:00 Entry 2 was deleted. Higher numbered entries shifted one position to fill the gap. <-> 2 Stop Time 11/06/20 11:16:00 11/06/20 12:09:20 Mattress Weaver: [id number] Modifier: [id number] <+> 1 Placement 11/06/20 12:09:01 Mattress Weaver: [id number] Modifier: [id number] 1 <*> Stop Time 11/06/20 12:08:00 <+> 2 Stop Time 11/06/20 12:08:33 Mattress Weaver: [id number] Modifier: [id number] <+> 1 Stop Time Case Comments <None> [...] filedocumented in this encounter Care Teams Director Of Services Relationship Specialty Start Date End Date Matheus Boggs MD [address] [place] [facility] [address] [place] [phone] PCP - General Family Medicine 09/05/22 documented as of this encounter
--- OUTSIDE RECORDS SUMMARY | 2025-03-16 10:26 | XMS_ITS | Encounter Summary ---
Author Organization [employer] ([place], [place], [place], [place]) Address [address] [place] [address] Care Team Providers Care Crowning Inspector Name Role Phone Matheus Boggs MD Primary Care Provider + [phone] Encounter Details Date Type Department Care Team (Late st Contact Info) Description 11/06/2020 Transcribed Document [facility] Family Medicine [facility]ly [facility] [place] [address] ProviderCristopher MD [address] [place] [address] Social History Tobacco Use Types Packs/Day [...] Cristopher ProviderMD - 11/06/2020 10:20 AM CDT [facility] Main OR PACU Summary Primary Physician: DEAN ALVA MD-ORT Finalized Date/Time: 11/06/20 12:55:13 Pt. Name: MARY WALKER D.O.B./Sex: 1945 Female Med Rec #: [id number] Physician: DEAN ALVA MD-ORT Financial #: [id number] Pt. Type: O Room/Bed: [facility]/ Admit/Disch: 11/06/20 06:53:00 - [place] [facility] [place] PAC[place] I Case Times Entry 1 In PACU I 11/06/20 11:38:00 Ready for PACU 11/06/20 12:38:00 Discharge Discharge from PACU 11/06/20 12:38:00 I Last Modified By: Michelle Chawla Rn 11/06/20 12:52:56 Finalized By: Michelle Chawla, Rn Document Signatures Signed By: Michelle Chawla Rn 11/06/20 12:55 Electronically signed by [facility] Conversion Stretching Press Operator Cerner at 11/06/2022 1:11 PM CDT documented in this encounter Plan of Treatment Not on file documented as of this encounter Visit Diagnoses Not on filedocumented in this encounter Care Teams Crowning Inspector Relationship Specialty Start Date End Date Matheus Boggs MD [address] [facility] [address] [place] [phone] PCP - General Family Medicine 09/05/22 documented as of this encounter
--- OUTSIDE RECORDS SUMMARY | 2025-03-16 10:26 | XMS_ITS | Encounter Summary ---
Author Organization [employer] ([place], [place], [place], [place]) Address [address] [place] [address] Care Team Providers Care Tapping Machine Operator Automatic Name Role Phone Matheus Boggs MD Primary Care Provider + [phone] Encounter Details Date Type Department Care Team (Late st Contact Info) Description 11/06/[address] [facility] Family Medicine [facility] [place] [address] ProviderCristopher MD [address] [place] [address] Social History Tobacco Use Types Packs/Day [...] Cristopher ProviderMD - 11/06/2020 10:20 AM CDT [facility] Main OR Preop Summary Primary Physician: DEAN ALVA MD-ORT Finalized Date/Time: 11/06/20 14:39:17 Pt. Name: MARY WALKER D.O.B./Sex: 1945 Female Med Rec #: [id number] Physician: DEAN ALVA MD-ORT Financial #: [id number] Pt. Type: O Room/Bed: 637/1 Admit/Disch: 11/06/20 06:53:00 - Institution: [facility] PreOp Case Times Entry 1 In Preop 11/06/20 07:39:00 Ready for Holding n/a Room Patient Ready for 11/06/20 09:13:00 Surgery Patient Out of Preop 11/06/20 09:46:00 Patient Out of n/a Holding Room Last Modified By: PARIS LOMBARDI RN 11/06/20 14:39:12 [facility] PreOp Case Times Audit 11/06/20 14:39:12 Pourer Crane Ladle: [email or web address] Modifier: MARIA ANTONIA <+> 1 Patient Out of Preop Finalized By: PARIS LOMBARDI RN Document Signatures Signed By: PARIS LOMBARDI RN 11/06/20 14:39 Electronically signed by [facility] Conversion Yarn Washer Cerner at 11/06/2022 1:07 PM CDT documented in this encounter Plan of Treatment Not on file documented as of this encounter Visit Diagnoses Not on filedocumented in this encounter Care Teams Tapping Machine Operator Automatic Relationship Specialty Start Date End Date Matheus Boggs MD [address] [place] [facility] [address] [place] [phone] PCP - General Family Medicine 09/05/22 documented as of this encounter
--- OUTSIDE RECORDS SUMMARY | 2025-03-16 10:26 | XMS_ITS | Encounter Summary ---
Author Organization [employer] ([place], [place], [place], [place]) Address [address] [place] [address] Care Team Providers Care General Manager In Training Name Role Phone Matheus Boggs MD Primary Care Provider + [phone] Encounter Details Date Type Department Care Team (Late st Contact Info) Description 01/28/2020 Transcribed Document [facility] [place] [address] [place] [address] ProviderCristopher MD [address] [place] [address] Social History Tobacco Use [...] On: 01/28/2020 13:53 EDT by JOSH MALIK, Shellfish Processing Laborer Primary Insurance Authorization Authorization and Policy Numbers : Insurance 1 Health Plan: MEDICARE Policy Number: [id number] Authorization Number: NPR Insurance 2 Health Plan: AARP N Policy Number: [id number] Authorization Number: NPR Insurance Primary Name : [facility] Authorization Number-Primary : NPR for Medicare Authorized Service Begin Date-Primary : 01/31/2020 EDT Authorization Comments-Primary : pt scheduled for OUT PT total knee replacement (Right) on 01-31-2020 Medicare: NPR Historical Authorization Comments-Primary : No Authorization Comments Found JOSH MALIK, Shellfish Processing Laborer - 01/28/2020 13:53 EDT Electronically signed by [facility], [facility] Conversion Senior Associate Cerner at 11/06/2022 12:59 PM CDT documented in this encounter Plan of Treatment Not on file documented as of this encounter Visit Diagnoses Not on filedocumented in this encounter Care Teams General Manager In Training Relationship Specialty Start Date End Date Matheus Boggs MD [address] [facility] [address] [place] [phone] PCP - General Family Medicine 09/05/22 documented as of this encounter
--- OUTSIDE RECORDS SUMMARY | 2025-03-16 10:26 | XMS_ITS | Encounter Summary ---
Author Organization [employer] ([place], [place], [place], [place]) Address [address] [place] [address] Care Team Providers Care Care Trainer Name Role Phone Matheus Boggs MD Primary Care Provider + [phone] Encounter Details Date Type Department Care Team (Late st Contact Info) Description 11/06/2020 Transcribed Document [facility] Family [place] [address] ProviderCristopher MD [address] [place] [address] Social History Tobacco Use Types Packs/Day [...] of the form. Electronically signed by Kee [facility] Conversion Backend Developer Cerner at 11/06/2022 1:12 PM CDT documented in this encounter Plan of Treatment Not on file documented as of this encounter Visit Diagnoses Not on filedocumented in this encounter Care Teams Care Trainer Relationship Specialty Start Date End Date Matheus Boggs MD [address] [facility] [address] [place] [address] PCP - General Family Medicine 09/05/22 documented as of this encounter
--- OUTSIDE RECORDS SUMMARY | 2025-03-16 10:26 | XMS_ITS | Encounter Summary ---
Author Organization [employer] ([place], [place], [place], [place]) Address [address] [place] [address] Care Team Providers Care Laundry Washer Name Role Phone Matheus Boggs MD Primary Care Provider + [phone] Encounter Details Date Type Department Care Team (Late st Contact Info) Description 11/06/2020 Transcribed Document [address] [address] Chris Keyes MD [address] [place] [address] Social History Tobacco Use Types Packs/Day Years [...] is a 75 yo female admitted to [facility] per Dr. Gonzalez for a left total [...] her. Denies prior stroke or seizure. Denies [place], CHF or cardiac arrhythmia. Denies DM. Denies [...] Daily Arnuity Ellipta 100 mcg, PRN, Inhalation, D21ELat fexofenadine 180 mg, Oral, Daily fluticasone 50 mcg/inh nasal spray 2 [place], PRN, Nasal, BID hydrochlorothiazide-irbesartan 12.5 mg-150 mg [...] on filedocumented in this encounter Care Teams Laundry Washer Relationship Specialty Start Date End Date Matheus Boggs MD [address] [place] [facility] [address] [place], [place] [address] PCP - General Family Medicine 09/05/22 documented as of this encounter
--- OUTSIDE RECORDS SUMMARY | 2025-03-16 10:26 | XMS_ITS | Encounter Summary ---
Author Organization [employer] ([place], [place], [place], [place]) Address [address] [place] [address] Care Team Providers Care Card Doffer Name Role Phone Matheus Boggs MD Primary Care Provider + [phone] Encounter Details Date Type Department Care Team (Late st Contact Info) Description 11/06/2020 Transcribed Document [facility] Family Medicine [facility] [place] [address] ProviderCristopher MD [address] [place] [address] Social History Tobacco Use Types Packs/Day [...] Ambulatory Legal Guardian : Daughter Support Person/Patient Warp Starter : Yes Support Person/Pt Rep Name : Bibiana Montelongo dtr Support Person/Pt Rep Contact Information : [phone] Bibiana Edmond Family/Rep/Phys Notified of Admit : No Emergency Contact #1 : `SHIRA Jeter RN - 11/06/2020 13:58 EDT Emergency Contact #1 SHIRA STEEL RN - 11/06/2020 18:14 EDT Emergency Contact #1 Relationship : daughter` SHIRA SHARMA RN - 11/06/2020 13:58 EDT Emergency Contact #2 : fay Emergency Contact #2 Phone Number : `[phone] Emergency Contact #2 Relationship : `daughter SHIRA SHARMA RN - 11/06/2020 18:14 EDT Information Obtained From : Patient Primary Language : Cameroonian Preferred Communication Mode : Verbal Communication Barrier : None Smart Grid Engineer Needed : No Objects to Sharing Info [...] Scale Risk Level : 25-45 Medium Risk [place] Fall Interventions : Adequate lighting, Assistive devices [...] Smokeless Tobacco Status : Never Implant/Device Type, Supervisor Photostat and Model : knee replacement abdominal mesh [...] Source : Measured Height Entry Format : [place] Height, Feet : 0 ft(Converted to: 0 cm, 0 Inch) Height, Inches : 60.5 Inch(Converted to: 5 ft 0 Inch, 153.67 cm) Clinical Height : 153.67 cm Weight Source : Standing scale Weight Entry Format : [place] Clinical Dosing Weight : 80.68 kg Weight, Pounds : 177.5 lb Body Surface Area (BSA) : 1.79 m2 Body Mass Index : 34.2 kg/m2 ([place]) [place] Body Weight : 46 kg SHIRA SHARMA [...] SHIRA SHARMA RN - 11/06/2020 14:06 EDT [place] Suicide Severity Rating Scale (C-SSRS) CSSRS Past [...] on filedocumented in this encounter Care Teams Card Doffer Relationship Specialty Start Date End Date Matheus Boggs MD [address] [place] [facility] [address] [place] [address] PCP - General Family Medicine 09/05/22 documented as of this encounter
--- OUTSIDE RECORDS SUMMARY | 2025-03-16 10:26 | XMS_ITS | Encounter Summary ---
Author Organization [employer] ([place], [place], [place], [place]) Address [address] [place] [address] Care Team Providers Care Explosive Operator Bomb Name Role Phone Matheus Boggs MD Primary Care Provider + [phone] Encounter Details Date Type Department Care Team (Late st Contact Info) Description 11/06/2020 Transcribed Document [facility] [place] [facility] [place] [address] ProviderCristopher MD [address] [place] [address] Social History Tobacco Use Types Packs/Day [...] - 11/06/2020 9:09 EDT Electronically signed by [facility] Conversion Housing Management Officer Cerner at 11/06/2022 12:55 PM CDT documented in this encounter Plan of Treatment Not on file documented as of this encounter Visit Diagnoses Not on filedocumented in this encounter Care Teams Explosive Operator Bomb Relationship Specialty Start Date End Date Matheus Boggs MD [address] [facility] [address] [place] [id number] PCP - General Family Medicine 09/05/22 documented as of this encounter
--- OUTSIDE RECORDS SUMMARY | 2025-03-16 10:26 | XMS_ITS | Encounter Summary ---
Author Organization [employer] ([place], [place], [place], [place]) Address [address] [place] [address] Care Team Providers Care Occupational Medicine Specialist Name Role Phone Matheus Boggs MD Primary Care Provider + [phone] Encounter Details Date Type Department Care Team (Late st Contact Info) Description 11/06/2020 Transcribed Document [facility] Family Medicine [facility] [place] [address] ProviderCristopher MD [address] [place] [address] Social History Tobacco Use Types Packs/Day [...] 12:55 OT Evaluation and Treatment Ordered By: DENA ALVA MD-ORT 11/06/2020 12:55 OT Treatment Instructions [...] Steps : 1 Railing Outside : No AHNNAH PEREZ OTR/L - 11/06/2020 14:32 EDT Prior [...] Assist Level : Assist, moderate HANNAH PEREZ OTR/Marianela - 11/06/2020 14:32 EDT Functional Mobility Mobility [...] HANNAH PEREZ OTR/Marianela - 11/06/2020 14:32 EDT Flame Brazing Machine Operator Goals, OT Bathing LTG Grid Goal #1 [...] 11/06/2020 14:32 EDT Electronically signed by Kee [facility] Conversion Operations Vocational Instructor Cerner at 11/06/2022 1:10 PM CDT documented in this encounter Plan of Treatment Not on file documented as of this encounter Visit Diagnoses Not on filedocumented in this encounter Care Teams Occupational Medicine Specialist Relationship Specialty Start Date End Date Matheus Boggs MD [address] [place] [facility] [address] [place] [address] PCP - General Family Medicine 09/05/22 documented as of this encounter
--- OUTSIDE RECORDS SUMMARY | 2025-03-16 10:26 | XMS_ITS | Clinical Summary ---
Author Organization [facility] Address [address] [place] [id number] Care Team Providers Care Integrity Assessor Name Role Phone Unavailable Primary Care Provider [...]
--- NOTE | 2025-03-16 10:30 | US_ITS ---
FINAL REPORT TECHNIQUE: Sonographic images of the left neck were obtained in the longitudinal and transverse planes. CLINICAL HISTORY: left cervical LAD COMPARISON: 03/11/2022 FINDINGS: The parotid and submandibular salivary glands are unremarkable. No mass or fluid collection. There are subcentimeter, benign appearing lymph nodes in the left neck. These do not meet size criteria for lymphadenopathy. IMPRESSION: Small left cervical lymph nodes. None meet size criteria for lymphadenopathy. No acute abnormality. Authenticated and ERN
--- NOTE | 2025-03-16 11:00 | CA_ITS ---
APPROVED REPORT EXAM: Comprehensive 2D, Doppler, and color-flow Echocardiogram Business Area Manager: SHEKHAR Butler, RVS Ht: 5 ft 1 in Wt: 179lbs BSA: 1.80 BP: 116/60 mmHg Indications: edema 2D Dimensions Left Atrium 4.22 cm F: 2.7 - 3.8 LA Volume 85.90 mL LA Volume Index 47.682922 mL/m2 (M/F) 16-34 M-Mode Dimensions RVDd 2.88 cm (0.9-2.6) LA Diam 4.64 cm (1.9-4.0) LVDd 4.66 cm (3.5-5.7) LVDs 2.75 cm (3.5-5.7) IVSd 1.02 cm (0.6-1.1) PWd 1.10 cm (0.6-1.1) EF (Teich) 71.80% EPSs 0.13 cm FS 41.00% EDV (Teich) 100.30 mL TAPSE 1.78 (<1.7) ESV (Teich) 28.30 mL LV Diastology E Decel Time 263 (160-240 msec) E/A Ratio 1.03 MED A' 9.40 cm/s LAT A' 8.00 cm/s Aortic Valve LYN Index 0.90 cm2/m2 AoV Peak Piotr. 175.0 (50-130 cm/s) AO Peak GR. 12.30 mmHg AO Mean GR. 6.10 (<5 mmHg) AO VTI 40.6 (18-25 cm) LYN (VTI) 1.67 (2.5-4.5 cm2) Mitral Valve MV A Velocity 91.0 (40-130 cm/s) E/A Ratio 1.03 Pulmonary Valve MI End VMAX 172.0 cm/s Tricuspid Valve TR P. Velocity 281.00 cm/s RAP Estimate 10.00 mmHg RVSP 41.50 mmHg Left Ventricle The left ventricle is normal size. Left ventricular systolic function is normal. The left ventricular ejection fraction is within the normal range. There is increased left ventricular wall thickness. There is normal LV segmental wall motion. Transmitral Doppler flow pattern suggests impaired LV relaxation. LVEF is 55% Right Ventricle The right ventricle is mildly dilated. The right ventricular systolic function is normal. Atria The left atrium is moderately dilated. The right atrium is moderately dilated. There is no color Doppler evidence of interatrial shunt. Aortic Valve The aortic valve is mildly thickened. There is no hemodynamically significant aortic valvular stenosis. Trace aortic regurgitation is present. Mitral Valve The mitral valve is normal in structure. No evidence of mitral valve stenosis. Mild mitral regurgitation is present. Tricuspid Valve The tricuspid valve leaflets are thin and pliable. Mild tricuspid regurgitation. RVSP is 30-35 mmHg. Pulmonic Valve The pulmonary valve is grossly normal in structure. Mild pulmonic valve regurgitation is present. Great Vessels The aortic root is normal in size. IVC is normal in size and collapses >50% with inspiration. Pericardium There is no pericardial effusion. Other Information Study Quality: Fair Conclusion Normal biventricular systolic function. Mild RV dilation. Biatrial dilation. Mild MR, mild TR, mild to PI. Electronically signed by : Leila Rascon MD 03/16/2025 12:29:20
== END 2025-03-16 23:59 | disposition home or self-care (01) ==
LOC: RAD 10:19
PROVIDERS: PCP Nurse Practitioner; Visit Provider Nurse Practitioner
DX: I08.8 Other rheumatic multiple valve diseases (principal); R59.0 Localized enlarged lymph nodes
CPT/HCPCS: 71046; 76536; 93306

== ENCOUNTER 2025-03-28 13:09 | Outpatient (CLI) | payer MEDICARE, OTHER, SELFPAY ==
--- OUTSIDE RECORDS SUMMARY | 2025-03-28 13:15 | XMS_ITS | Clinical Summary ---
Author Organization [facility] Address [address] [place] [address] Care Team Providers Care Hand Trimmer Name Role Phone Matheus Boggs MD Primary Care Provider Mitchell Oliva MD Unavailable [phone] Allergies Active Allergy Reactions Criticality Noted Date [...] Active fluticasone (FLONASE) 50 mcg/actuation nasal spray Elaine 2 Sprays into nose 2 times daily. [...] Vaccines (1 - 1-dose 75+ series) 2020 Advance Care Planning 07/21/2024 Depression Screening 07/21/2024 COVID-19 Vaccine (1 - 2023-2 5 season) 2025 Influenza Vaccination (#1) 2025 Breast Cancer Screening Discontinued 09/10/19 11, 08/28/2009, 08/23/2008, Additional history exists Medical Devices Implanted Type Area Button Maker Device Identifier Shelf Expiration Date Model / Serial / Lot Tissue Matrix [id number] Implanted:Qty: 1 on 09/16/2014 by Mitchell Oliva MD at [facility] Abdomen * Molecule Synth 05/20/2016 [id number] / / [id number] Procedures Procedure Name Priority Date/Time Associated Diagnosis [...] AXIAL SKELETON (09/29/2000 9:30 AM EST) Narrative [facility] EXTERNAL RAD - 09/29/2000 10:13 PM [...] fective for All Dates) Name:Eulalia Walker Member ID:[id number] Relation to Subscriber:Self Name:Eulalia Walker Subscriber ID:[id number] Payer ID:[id number] Group ID:Not on file Type:Medicare Address: [facility] [address] [facility] [place] [address] [facility] MEDICARE [place] [id number] [facility] Care Teams Hand Trimmer Relationship Specialty Start Date End Date Matheus Boggs MD [address] [place] [address] [place] [address] PCP - General Family Medicine 09/14/14 Mitchell Oliva MD [facility] [address] [place] [address] General Surgery 07/28/22
--- OUTSIDE RECORDS SUMMARY | 2025-03-28 13:15 | XMS_ITS | Encounter Summary ---
Author Organization [facility] Address [address] [place] [address] Care Team Providers Care Machine Assembler Supervisor Name Role Phone Devin Mendoza MD Primary Care Provider [phone] Matheus Boggs MD Primary Care Provider [phone] Mitchell Oliva MD Unavailable [phone] Encounter Details Date Type Department Care Team (Late st Contact Info) Description 07/29/2013 Orders Only [facility] Physicians - Primary Care, [address] [place] [phone] Devin Mendoza MD [address] [place] [address] [place] [address] Social History Tobacco Use Types Packs/Day [...] Procedure Name Priority Date/Time Associated Diagnosis Comments DC ECG ROUTINE ECG W/LEAST 1 2 LDS W/I&R Routine 09/17/2007 documented in this encounter Results * EKG/ELECTROCARDIOGRAM, COMPLETE (09/17/2007) us Devin Mendoza MD DC CARDIOVASCULAR SYSTEM SER VICES Final Result [facility] [address] [place] [address] documented in this encounter Visit Diagnoses Not on filedocumented in this encounter Care Teams Machine Assembler Supervisor Relationship Specialty Start Date End Date Devin Mendoza MD PCP - General 04/29/08 09/13/14 Matheus Boggs MD [address] [place] [address] PCP - General Family Medicine 09/14/14 [place] [address] [place] [address]. [address] [place] [address] General Surgery 07/28/22 documented as of this encounter
--- OUTSIDE RECORDS SUMMARY | 2025-03-28 13:15 | XMS_ITS | Referral Summary ---
Author Organization [facility] Address [address] [address] Care Team Providers Care Clinical Recruiter Name Role Phone Unavailable Primary Care Provider [...]
--- OUTSIDE RECORDS SUMMARY | 2025-03-28 13:15 | XMS_ITS | Clinical Summary ---
Author Organization [facility] Address [address] [facility] [place] [address] Phone Care Team Providers Care Plating Technician Name Role Phone Matheus Boggs MD Primary Care Provider + [phone] Social History Tobacco Use Types Packs/Day Years [...] (1 - 2023-2 5 season) 2025 Influenza Vaccine (#1) 2025 Hepatitis B Vaccine Aged Out No longe r eligible based on patient's age to complete this topic Meningococcal B Vaccine Aged Out No l onger eligible based on patient's age to complete this topic Insurance MEDICARE [place] PART A AND B AARP SUPPLEMENTAL Care Teams Plating Technician Relationship Specialty Start Date End Date Matheus Boggs MD [address] [place] [address] [place] [phone] PCP - General Family Medicine 12/02/16
--- OUTSIDE RECORDS SUMMARY | 2025-03-28 13:15 | XMS_ITS | Encounter Summary ---
Author Organization [facility] Address [address] [place] [address] Care Team Providers Care Pediatric Physician Name Role Phone Devin Mendoza MD Primary Care Provider Matheus Boggs MD Primary Care Provider Mitchell Oliva MD Unavailable [phone] Encounter Details Date Type Department Care Team (Late st Contact Info) Description 02/15/[address] [facility] Physicians - Primary Care, [address] [place] [phone] Devin Mendoza MD [address] [place] [address] [place] [address] Social History Tobacco Use Types Packs/Day [...] on filedocumented in this encounter Care Teams Pediatric Physician Relationship Specialty Start Date End Date Devin Mendoza MD PCP - General 04/29/08 09/13/14 Matheus Boggs MD [address] [place] [address] PCP - General Family Medicine 09/14/14 Mitchell Oliva MD [address] [place] [address] [address] [place] [address] General Surgery 07/28/22 documented as of this encounter
--- OUTSIDE RECORDS SUMMARY | 2025-03-28 13:15 | XMS_ITS | Clinical Summary ---
Author Organization [facility] Address [address] [place] [address] Care Team Providers Care Diamond Powder Technician Name Role Phone Unavailable Primary Care Provider [...]
--- OUTSIDE RECORDS SUMMARY | 2025-03-28 13:15 | XMS_ITS | Encounter Summary ---
Author Organization [facility] Address [address] [place] [address] Care Team Providers Care Magnetic Healer Name Role Phone Devin Mendoza MD Primary Care Provider [phone] Matheus Boggs MD Primary Care Provider Mitchell Oliva MD Unavailable [phone] Reason for Visit * Reason Comments Medications Refill Encounter Details Date Type Department Care Team (Late st Contact Info) Description 06/26/2010 Refill [facility] Physicians - Primary Care, [address] [place] [phone] Devin Mendoza MD [address] [place] [address] [place] [address] Medications Refill Social History Tobacco Use [...] on filedocumented in this encounter Care Teams Magnetic Healer Relationship Specialty Start Date End Date Devin Mendoza MD PCP - General 04/29/08 09/13/14 Matheus Boggs MD [address] [place] [address] PCP - General Family Medicine 09/14/14 [place] [address] [place] [address] [address] [place] [address] General Surgery 07/28/22 documented as of this encounter
--- NOTE | 2025-03-28 14:00 | CT_ITS ---
FINAL REPORT TECHNIQUE: Thin section axial images were obtained through the paranasal sinuses without contrast. Reconstruction images were obtained from the axial data. Exam was performed using dose reduction techniques such as automated exposure control, adjustment of the mA and kV according to patient size, and use of iterative reconstruction technique. CLINICAL HISTORY: left ear pain, chronic sinusitis, hx sinus surgery 10-12 years COMPARISON: None FINDINGS: There is mild mucoperiosteal thickening involving the left maxillary sinus. Otherwise, the sinuses are clear. No air-fluid levels are identified. The maxillary infundibulum are patent bilaterally. There is no significant nasal septal deviation. The mastoid air cells are unremarkable in appearance. Degenerative changes are present in the bilateral temporomandibular joints. Remaining soft tissues are unremarkable. IMPRESSION: Mild mucoperiosteal thickening of the left maxillary sinus is present, otherwise the sinuses are clear. Reviewed, Interpreted and Dictated by Ave Mendiola MD Transcribed by Erica Valdes Authenticated and [facility]
== END 2025-03-28 23:59 | disposition home or self-care (01) ==
LOC: RAD 13:12
PROVIDERS: PCP Nurse Practitioner; Visit Provider Nurse Practitioner
DX: J34.89 Other specified disorders of nose and nasal sinuses (principal); J32.9 Chronic sinusitis, unspecified; H92.02 Otalgia, left ear; Z98.890 Other specified postprocedural states
CPT/HCPCS: 70486

== ENCOUNTER 2025-05-18 09:04 | Outpatient (CLI) | payer MEDICARE, OTHER, SELFPAY ==
--- OUTSIDE RECORDS SUMMARY | 2025-05-19 13:33 | XMS_ITS | Encounter Summary ---
Author Organization [facility] Address [address] [place] [address] Care Team Providers Care Academic Department Chair Name Role Phone Devin Mendoza MD Primary Care Provider Matheus Boggs MD Primary Care Provider [phone] Mitchell Oliva MD Unavailable [phone] Encounter Details Date Type Department Care Team (Late st Contact Info) Description 02/15/2010 Abstract [facility] Physicians - Primary Care, [address] [place] [phone] Devin Mendoza MD [address] [place] [address] [place] [address] Social History Tobacco Use Types Packs/Day [...] on filedocumented in this encounter Care Teams Academic Department Chair Relationship Specialty Start Date End Date Devin Mendoza MD PCP - General 04/29/08 09/13/14 Matheus Boggs MD [address] [place] [address] [place] [address] PCP - General Family Medicine 09/14/14 Mitchell Oliva MD [address] [place] [address] [address] [place] [address] General Surgery 07/28/22 documented as of this encounter
--- OUTSIDE RECORDS SUMMARY | 2025-05-19 13:34 | XMS_ITS | Encounter Summary ---
Author Organization [employer] ([place], [place], [place]) Address [address] [place] [address] Care Team Providers Care Reactor Kettle Operator Name Role Phone Matheus Boggs MD Primary Care Provider + [phone] Encounter Details Date Type Department Care Team (Late st Contact Info) Description 11/14/2020 Transcribed Document [facility] Family Medicine [facility] [place] [address] ProviderCristopher MD [address] [place] [address] Social History Tobacco Use Types Packs/Day [...] DANGELO PA-ORT - 03:00 PM Previously Documented Senior Care Patient Stated Goal : No Patient Stated [...] on filedocumented in this encounter Care Teams Reactor Kettle Operator Relationship Specialty Start Date End Date Matheus Boggs MD [address] [place] [facility] [address] [place] [id number] PCP - General Family Medicine 09/05/22 documented as of this encounter
--- OUTSIDE RECORDS SUMMARY | 2025-05-19 13:34 | XMS_ITS | Encounter Summary ---
Author Organization [employer] ([place], [place], [place], [place]) Address [address] [place] [address] Care Team Providers Care Director Museum Or Zoo Name Role Phone Matheus Boggs MD Primary Care Provider + [phone] Encounter Details Date Type Department Care Team (Late st Contact Info) Description 11/07/2020 Transcribed Document [facility] [place] [address] ProviderCristopher MD [address] [place] [address] Social History Tobacco Use Types Packs/Day [...] Conversion Note - Cristopher ProviderMD - 11/07/2020 10:54 AM CDT Patient Education [...] of Dr. Gonzalez or Dr. Arthur, call [phone] If you are a patient of Dr. German, call [phone] Nurse Navigator: Ivanna Carrasco Office: [phone]; ; available during regular business hours documented in this encounter Plan of Treatment Not on file documented as of this encounter Visit Diagnoses Not on filedocumented in this encounter Care Teams Director Museum Or Zoo Relationship Specialty Start Date End Date Matheus Boggs MD [facility] [address] [place] [address] PCP - General Family Medicine 09/05/22 documented as of this encounter
--- OUTSIDE RECORDS SUMMARY | 2025-05-19 13:34 | XMS_ITS | Encounter Summary ---
Author Organization [employer] ([place], [place], [place], [place]) Address [address] [place] [address] Care Team Providers Care Esol Teacher Assistant Name Role Phone Matheus Boggs MD Primary Care Provider + [phone] Encounter Details Date Type Department Care Team (Late st Contact Info) Description 11/07/2020 Transcribed Document [facility] [place] [facility] [place] [address] ProviderCristopher MD [address] [place] [address] Social History Tobacco Use Types Packs/Day [...] On: 11/07/2020 14:19 EDT by YEMI CALL manager mechanical maintenance Documentation Discharge Date/Time : 11/07/2020 14:20 EDT [...] - 11/07/2020 14:19 EDT Electronically signed by [facility], [facility] Conversion Dietitian Therapeutic Cerner at 11/06/2022 1:13 PM CDT documented in this encounter Plan of Treatment Not on file documented as of this encounter Visit Diagnoses Not on filedocumented in this encounter Care Teams Esol Teacher Assistant Relationship Specialty Start Date End Date Matheus Boggs MD [address] [facility] [address] [place] [address] PCP - General Family Medicine 09/05/22 documented as of this encounter
--- OUTSIDE RECORDS SUMMARY | 2025-05-19 13:34 | XMS_ITS | Encounter Summary ---
Author Organization [facility] Address [address] [place] [address] Care Team Providers Care Mechanical Equipment Sales Engineer Name Role Phone Devin Mendoza MD Primary Care Provider [phone] Matheus Boggs MD Primary Care Provider Mitchell Oliva MD Unavailable [phone] Reason for Visit * Reason Comments Medications Refill Encounter Details Date Type Department Care Team (Late st Contact Info) Description 06/26/2010 Refill [facility] Physicians - Primary Care, [address] [place] [phone] Devin Mendoza MD [address] [place] [address] [place] [address] Medications Refill Social History Tobacco Use [...] on filedocumented in this encounter Care Teams Mechanical Equipment Sales Engineer Relationship Specialty Start Date End Date Devin Mendoza MD PCP - General 04/29/08 09/13/14 Matheus Boggs MD [address] [place] [address] PCP - General Family Medicine 09/14/14 [place] [address] [place] [address] [address] [place] [address] General Surgery 07/28/22 documented as of this encounter
--- OUTSIDE RECORDS SUMMARY | 2025-05-19 13:34 | XMS_ITS | Encounter Summary ---
Author Organization [employer] ([place], [place], [place], [place]) Address [address] [place] [address] Care Team Providers Care Asbestos Worker Helper Name Role Phone Matheus Boggs MD Primary Care Provider + [phone] Encounter Details Date Type Department Care Team (Late st Contact Info) Description 11/07/2020 Transcribed Document [facility] [place] [facility] [place] [address] ProviderCristopher MD [address] [place] [address] Social History Tobacco Use Types Packs/Day [...] of the form. Electronically signed by Kee [facility] Conversion Vocational Trainer Cerner at 11/06/2022 1:11 PM CDT documented in this encounter Plan of Treatment Not on file documented as of this encounter Visit Diagnoses Not on filedocumented in this encounter Care Teams Asbestos Worker Helper Relationship Specialty Start Date End Date Matheus Boggs MD [address] [place] [address] [place] [address] PCP - General Family Medicine 09/05/22 documented as of this encounter
--- OUTSIDE RECORDS SUMMARY | 2025-05-19 13:34 | XMS_ITS | Encounter Summary ---
Author Organization [employer] ([place], [place], [place], [place]) Address [address] [place] [address] Care Team Providers Care Mechanical Shop Laborer Name Role Phone Matheus Boggs MD Primary Care Provider + [phone] Encounter Details Date Type Department Care Team (Late st Contact Info) Description 11/07/2020 Transcribed Document [facility] [place] [facility] [place] [address] ProviderCristopher MD [address] [place] [address] Social History Tobacco Use Types Packs/Day [...] filedocumented in this encounter Care Teams Mechanical Shop Laborer Relationship Specialty Start Date End Date Matheus Boggs MD [address] [place] [address] PCP - General Family Medicine 09/05/22 documented as of this encounter
--- OUTSIDE RECORDS SUMMARY | 2025-05-19 13:34 | XMS_ITS | Encounter Summary ---
Author Organization [employer] ([place], [place], [place], [place]) Address [address] [place] [address] Care Team Providers Care Real Estate Firm Manager Name Role Phone Michelet Boggs MD Primary Care Provider + [phone] Encounter Details Date Type Department Care Team (Late st Contact Info) Description 11/07/2020 Transcribed Document [facility] [place] [facility] [place] [address] ProviderCristopher MD [address] [place] [address] Social History Tobacco Use Types Packs/Day [...] On: 11/07/2020 16:32 EDT by NAGI TAPIA RN-Vp Project Initial Assessment I Previously Documented Living Environment : No qualifying data available. Living Situation : Home Patient Lives With : Alone Is the Patient a Caregiver at Home? : No Emergency Contact #1 : Janiya White Emergency Contact #1 ` Emergency Contact #1 Relationship : daughter` Emergency Contact #2 : fay Emergency Contact #2 Phone Number : `[phone] Emergency Contact #2 Relationship : `daughter Enter Doctors Name : MICHELET BOGGS (REF) T Does Patient have PCP Listed? : Yes NAGI TAPIA RN-Vp Project - 11/07/2020 16:32 EDT Initial Assessment II Sensory and Motor Deficits : None Current Home Treatments and Equipment : Bedside commode, Walker Does the Patient have a Floor to SNF Benefit? : No NAGI TAPIA RN-Vp Project - 11/07/2020 16:32 EDT Discharge Needs I Anticipated Discharge Date : 11/07/2020 EDT Anticipated Discharge To, CM : Home with home health Current Home Treatment/Equipment : Current Home Treatment/Equipment No qualifying data available. Post Acute/Home Treatments : None Documentation Status Complete : Yes NAGI TAPIA RN-Vp Project - 11/07/2020 16:32 EDT Discharge Needs II Professional Skilled Services : Professional Skilled Services No qualifying data available. Needs Assistance with Transportation : No Discharge Options Discussed with Patient : Home Health NAGI ATPIA RN-Vp Project - 11/07/2020 16:32 EDT Narrative Note Narrative Note : 75yo female pt s/p LTKA. Met with pt at bedside to discuss DCP. 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 Pt chose [facility] for HH again like last time. Referral sent via [facility] and confirmed acceptance and SOC tomorrow 11/08 with Ashley in intake. No other CM needs noted. NAGI TAPIA RN-Vp Project - 11/07/2020 16:32 EDT documented in this encounter Plan of Treatment Not on file documented as of this encounter Visit Diagnoses Not on filedocumented in this encounter Care Teams Real Estate Firm Manager Relationship Specialty Start Date End Date Michelet Boggs MD [address] [place] [address] [place] [address] PCP - General Family Medicine 09/05/22 documented as of this encounter
--- OUTSIDE RECORDS SUMMARY | 2025-05-19 13:35 | XMS_ITS | Encounter Summary ---
Author Organization [employer] ([place], [place], [place], [place]) Address [address] [place] [address] Care Team Providers Care Wood Casket Maker Name Role Phone Matheus Boggs MD Primary Care Provider + [phone] Encounter Details Date Type Department Care Team (Late st Contact Info) Description 11/07/2020 Transcribed Document [facility] [place] [facility] [place] [address] ProviderCristopher MD [address] [place] [address] Social History Tobacco Use Types Packs/Day [...] Insurance 1 Health Plan: MEDICARE Policy Number: [id number] Authorization Number: Insurance 2 Health Plan: AARP N Policy Number: [id number] Authorization Number: Insurance Primary Name : Medicare Authorization Status-Primary : No precert required Authorization Number-Primary : NPR for Medicare Authorized Service Begin Date-Primary : 11/06/2020 EDT Historical Authorization Comments-Primary : Comment 1: Pt is brunilda for OUT PT total knee replacement on Friday11-06-20 Medicare: NPR (JOSH MALIK, Brake Operator Helper 11/01/2020 14:30) Susi Andino Rn-Utilization Review - 11/07/2020 11:06 EDT documented in this encounter Plan of Treatment Not on file documented as of this encounter Visit Diagnoses Not on filedocumented in this encounter Care Teams Wood Casket Maker Relationship Specialty Start Date End Date Matheus Boggs MD [address] [place] [facility] [address] [place] [address] PCP - General Family Medicine 09/05/22 documented as of this encounter
--- OUTSIDE RECORDS SUMMARY | 2025-05-19 13:35 | XMS_ITS | Encounter Summary ---
Author Organization [employer] ([place], [place], [place], [place]) Address [address] [place] [address] Care Team Providers Care Software Programmer Name Role Phone Matheus Boggs MD Primary Care Provider + [phone] Encounter Details Date Type Department Care Team (Late st Contact Info) Description 01/13/2020 Transcribed Document [facility] [place] Family [place] [address] [place] [address] ProviderCristopher MD [address] [place], [place] [id number] Social History Tobacco Use Types Packs/Day Years [...] from sitting : Severe 7. Bending to floor/curing pickling packer an object : Moderate JESSY SÁNCHEZ Raw [...] filedocumented in this encounter Care Teams Software Programmer Relationship Specialty Start Date End Date Matheus Boggs MD [address] [place] [facility] [address] [place] [phone] PCP - General Family Medicine 09/05/22 documented as of this encounter
--- OUTSIDE RECORDS SUMMARY | 2025-05-19 13:35 | XMS_ITS | Encounter Summary ---
Author Organization [employer] ([place], [place], [place], [place]) Address [address] [place] [address] Care Team Providers Care Code Official Name Role Phone Matheus Boggs MD Primary Care Provider + [phone] Encounter Details Date Type Department Care Team (Late st Contact Info) Description 01/31/2020 Transcribed Document [facility] [place] [address] [place] [address] ProviderCristopher MD [address] [place] [address] Social History Tobacco Use Types [...] Devices : Assistive Devices No Devices Recorded HANANH PEREZ OTR/Marianela - 02/01/2020 13:39 EDT General [...] Phillips STUDENT-OCCUPATIONAL THERAPIST - 02/01/2020 13:08 EDT Epic Beacon Analyst Goals, OT Grooming LTG Grid Goal #1 [...] ADLs. Equipment included long handled shoe horn, inspecting supervisor, sock aid, and leg office clerk. Pt verbalized understanding of equipment. Pt donned [...] the text rendition version of the form. [place] OT Charges OT Selfcare/Hm Mgmt Ea 15 Min : 1 OT Ther Activities Ea 15 Min : 1 Malinda Phillips STUDENT-OCCUPATIONAL THERAPIST - 02/01/2020 13:08 EDT documented in this encounter Plan of Treatment Not on file documented as of this encounter Visit Diagnoses Not on filedocumented in this encounter Care Teams Code Official Relationship Specialty Start Date End Date Matheus Boggs MD [address] [place] [facility] [address] [place] [address] PCP - General Family Medicine 09/05/22 documented as of this encounter
--- OUTSIDE RECORDS SUMMARY | 2025-05-19 13:35 | XMS_ITS | Clinical Summary ---
Author Organization [employer] ([place], [place], [place], [place]) Address [address] [place] [address] Care Team Providers Care Miter Operator Name Role Phone Matheus Boggs MD Primary Care Provider [phone] Allergies Active Allergy Reactions Criticality Noted Date Comments Aspirin 10/04/2013 Sulfamethoxazole-Trimethoprim 2014 Codeine Phosphate 10/04/2013 Nsaids (Non-Steroidal Anti-I nflammatory Drug) 10/04/2013 Oxycodone 10/04/2013 Penicillin 10/04/2013 Oxycodone-Aspirin 10/04/2013 Llrotpk-Ldh-Hcz Reductase Inhibitors 10/04/2013 Sulfa (Sulfonamide Antibiotics) 09/18 [...] abnormal study. Mild anterior reversibility. EF 81%. [facility] 03/03/2012: Patent coronaries. Mild CAD. EF [...] on file 08/08 Educational Attainment Answer Date Dakoath rded Speak language other than Palauan at home Not on file 08/08/2023 Want [...] Cessation Counseling and Screening (12+) 09/09/2023 09/09/2022 Falls Risk Screening 07/21/2024 COVID-19 VACCINE (5 - 2024-2 6 season) 2025 01/28/2022, 06/04/2021, 08/24/2020, Additional history exists Influenza Vaccine (#1) 2025 , 05/02/2021, 04/25/2020, Additional history exists DTAP/TDAP/TD VACCINES (2 - T d or Tdap) 01/07/2027 01/07/2017 Insurance MEDICARE PART A [facility] MCR SUPP [facility] CLAIMS Care Teams Miter Operator Relationship Specialty Start Date End Date Matheus Boggs MD [address] [facility] [address] [place] [phone] PCP - General Family Medicine 09/05/22
--- OUTSIDE RECORDS SUMMARY | 2025-05-19 13:35 | XMS_ITS | Encounter Summary ---
Author Organization [employer] ([place], [place], [place], [place]) Address [address] [place] [address] Care Team Providers Care Distribution Engineering Technologist Name Role Phone Matheus Boggs MD Primary Care Provider + [phone] Encounter Details Date Type Department Care Team (Late st Contact Info) Description 01/31/2020 Transcribed Document [facility] Radiology 1 [place] [address] Lizz Gonzalez MD [facility] [place] [address] Social History Tobacco Use Types Packs/Day Years [...] Diagnosis Osteoarthritis right knee *Surgeon(s) Surgeon: Carlos Marine Specialist: Lorenzo *Procedure Narrative Patient identified in the [...] The cruciates were resected. Next, distal femoral military pilot hole was drilled and the intramedullary [...] with a Bovie. Femur was sized. The Breadcrumbtrackingon gap commercial engineer was placed and tensed. Posterior condyle resection as noted above. Drill holes made through the commercial engineer and the appropriately sized four-in-one block placed [...] drapes were removed. [facility] Compression stocking and Cryo/Cuff placed [...] on filedocumented in this encounter Care Teams Distribution Engineering Technologist Relationship Specialty Start Date End Date Matheus Boggs MD [address] [place] [facility] [address] [place] [phone] PCP - General Family Medicine 09/05/22 documented as of this encounter
--- OUTSIDE RECORDS SUMMARY | 2025-05-19 13:35 | XMS_ITS | Encounter Summary ---
Author Organization [employer] ([place], [place], [place], [place]) Address [address] [place] [address] Care Team Providers Care Director Of Promotions Name Role Phone Matheus Boggs MD Primary Care Provider + [phone] Encounter Details Date Type Department Care Team (Late st Contact Info) Description 01/13/2020 Transcribed Document [facility] Family Medicine [facility] [place] [address] ProviderCristopher MD [address] [place] [address] Social History Tobacco Use Types Packs/Day [...] Source : Measured Height Entry Format : [place] Height, Feet : 5 ft(Converted to: 152 cm, 60 Inch) Height, Inches : 1.5 Inch(Converted to: 0 ft 2 Inch, 3.81 cm) Clinical Height : 156.21 cm Weight Source : Standing scale Weight Entry Format : [place] Clinical Dosing Weight : 78.32 kg Weight, Pounds : 172 lb Weight, Ounces : 5 oz Body Surface Area (BSA) : 1.79 m2 Body Mass Index : 32.1 kg/m2 (HI) [place] Body Weight : 49 kg FAROOQ SAVAGE [...] Directive Type : Medical durable power of trust and estates attorney (proxy) FAROOQ SAVAGE RN - 01/13/2020 10:05 EDT Spiritual/Cultural Needs Any Spiritual/Cultural Needs or Requests : Yes Spiritual/Cultural Needs Comment : surgery on time in to be determioned Spiritual/Cult Concerns/Desires/Needs : Prayer Spiritual/Cultural Needs Comment : surgery on y 13 time in to be determioned FAROOQ SAVAGE RN - 01/13/2020 10:05 EDT Green Suicide Severity Rating Scale (C-SSRS) CSSRS Past [...] Patient Arrival Date/Time : 01/31/2020 7:01 EDT Geropsychologist Needed : [place] Baird RN - 01/31/2020 7:56 EDT Arrived From : Home Mode of Arrival on Unit : Ambulatory FAROOQ SAVAGE RN - 01/13/2020 10:23 EDT Legal Guardian : Daughter, Unaccompanied [place] Macdonald RN - 01/31/2020 7:56 EDT Support Person/Patient Lathe Sander : Yes Support Person/Pt Rep Name : Lili White - dtr Fay eRese - dtr Support Person/Pt Rep Contact Information : [phone] Want Family/Rep/Phys Notified of Admit : No Emergency Contact #1 : Lili White Emergency Contact #1 Emergency Contact #1 Relationship : dtr Emergency Contact #2 : Fay Reese Emergency Contact #2 Emergency Contact #2 Relationship : dtr Information Obtained From : Patient Primary Language : Maltese Preferred Communication Mode : Verbal Communication Barrier [...] FAROOQ SAVAGE RN - 01/13/2020 10:23 EDT Electronically signed by Milo Sweet Conversion Medical Assistant Internal Medicine Cerner at 11/06/2022 1:09 PM CDT documented in this encounter Plan of Treatment Not on file documented as of this encounter Visit Diagnoses Not on filedocumented in this encounter Care Teams Director Of Promotions Relationship Specialty Start Date End Date Matheus Boggs MD [address] [place] [facility] [address] [place] [address] PCP - General Family Medicine 09/05/22 documented as of this encounter
--- OUTSIDE RECORDS SUMMARY | 2025-05-19 13:35 | XMS_ITS | Encounter Summary ---
Author Organization [employer] ([place], [place], [place], [place]) Address [address] [place] [address] Care Team Providers Care Angle Shear Set Up Operator Name Role Phone Matheus Boggs MD Primary Care Provider + [phone] Encounter Details Date Type Department Care Team (Late st Contact Info) Description 11/07/2020 Transcribed Document [facility] [place] Family Medicine [facility] [place] [address] ProviderCristopher MD [address] [place] [address] Social History Tobacco Use Types Packs/Day [...] on filedocumented in this encounter Care Teams Angle Shear Set Up Operator Relationship Specialty Start Date End Date Matheus Boggs MD [address] [facility] [address] [place] [phone] PCP - General Family Medicine 09/05/22 documented as of this encounter
--- OUTSIDE RECORDS SUMMARY | 2025-05-19 13:35 | XMS_ITS | Encounter Summary ---
Author Organization [employer] ([place], [place], [place], [place]) Address [address] [place] [address] Care Team Providers Care Lockstitch Waistband Setter Name Role Phone Matheus Boggs MD Primary Care Provider + [phone] Encounter Details Date Type Department Care Team (Late st Contact Info) Description 11/07/2020 Transcribed Document [facility] [place] [facility] [place] [address] ProviderCristopher MD [address] [place] [address] Social History Tobacco Use Types Packs/Day [...] Daily Arnuity Ellipta 100 mcg, PRN, Inhalation, D89HGzh aspirin 81 mg oral delayed release tablet 81 mg = 1 Tab, Oral, BID cefadroxil 500 mg oral capsule 500 mg = 1 Cap, Oral, Q12H Colace 100 mg oral capsule 100 mg = 1 Cap, PRN, Oral, BID fexofenadine 180 mg, Oral, Daily fluticasone 50 mcg/inh nasal spray 2 Metter, PRN, Nasal, BID hydrochlorothiazide-irbesartan 12.5 mg-150 mg [...] Mcnamara. Pending Labs In Process SENDOUT REPORT [id number], [id number], RT - Routine, 11/06/20 11:08:00 EDT Pathology Tissue Request [id number], [id number], 11/06/20 11:08:00 EDT, Collected, RT - Routine, [...] on filedocumented in this encounter Care Teams Lockstitch Waistband Setter Relationship Specialty Start Date End Date Matheus Boggs MD [address] [place] [phone] PCP - General Family Medicine 09/05/22 documented as of this encounter
--- OUTSIDE RECORDS SUMMARY | 2025-05-19 13:35 | XMS_ITS | Encounter Summary ---
Author Organization [employer] ([place], [place], [place], [place]) Address [address] [place] [address] Care Team Providers Care Finisher Denture Name Role Phone Matheus Boggs MD Primary Care Provider + [phone] Encounter Details Date Type Department Care Team (Late st Contact Info) Description 11/06/2020 Transcribed Document [facility] [place] [facility] [place] [address] ProviderCristopher MD [address] [place] [address] Social History Tobacco Use Types Packs/Day [...] and pastoral prayer; Ms. Walker expressed gratitude Adventism Preference : Faith ([employer]) ERIC UNDERWOOD - 11/06/2020 16:42 EDT Electronically signed by Kee, [facility] Conversion Upsetting Machine Operator Cerner at 11/06/2022 1:13 PM CDT documented in this encounter Plan of Treatment Not on file documented as of this encounter Visit Diagnoses Not on filedocumented in this encounter Care Teams Finisher Denture Relationship Specialty Start Date End Date Matheus Boggs MD 12[address] [facility] [address] [place] [phone] PCP - General Family Medicine 09/05/22 documented as of this encounter
--- OUTSIDE RECORDS SUMMARY | 2025-05-19 13:35 | XMS_ITS | Encounter Summary ---
Author Organization [employer] ([place], [place], [place], [place]) Address [address] [place] [address] Care Team Providers Care Identification Officer Name Role Phone Matheus Boggs MD Primary Care Provider + [phone] Encounter Details Date Type Department Care Team (Late st Contact Info) Description 01/31/2020 Transcribed Document [facility] [place] Family [place] [facility] [place] [address] ProviderCristopher MD [address] [place] [address] Social History Tobacco Use Types Packs/Day Years [...] : Yes Joint AcademyType : Online Joint Superintendent Pressure Name : Type of Surgery : Total Knee Replacement, Right Anticipated Discharge Plan : Home Health PT Anticipated Discharge Plan Comment : Patient plans to d/c home with the help of her and requests [place] for home therapy. CHIKA ROBB RN-Ortho Nurse [...] on filedocumented in this encounter Care Teams Identification Officer Relationship Specialty Start Date End Date Matheus Boggs MD [address] [place] [facility] [address] [place] [address] PCP - General Family Medicine 09/05/22 documented as of this encounter
--- OUTSIDE RECORDS SUMMARY | 2025-05-19 13:35 | XMS_ITS | Encounter Summary ---
Author Organization [employer] ([place], [place], [place], [place]) Address [address] [place] [address] Care Team Providers Care Production Painter Name Role Phone Matheus Boggs MD Primary Care Provider + [phone] Encounter Details Date Type Department Care Team (Late st Contact Info) Description 11/07/2020 Transcribed Document [facility] [place] Family [place] [facility] [place] [address] ProviderCristopher MD [address] [place] [address] Social History Tobacco Use Types Packs/Day [...] On: 11/07/2020 16:35 EDT by NAGI TAPIA RN-Personal Carer Final Discharge Planning Discharge Arrangements : Patient [...] Services (Related/SOC within 3 days)-06 NAGI TAPIA RN-Personal Carer - 11/07/2020 16:35 EDT Electronically signed by Kee [facility] Conversion Blueprint Clerk Cerner at 11/06/2022 12:49 PM CDT documented in this encounter Plan of Treatment Not on file documented as of this encounter Visit Diagnoses Not on filedocumented in this encounter Care Teams Production Painter Relationship Specialty Start Date End Date Matheus Boggs MD 12[address] [facility] [address] [place] [phone] PCP - General Family Medicine 09/05/22 documented as of this encounter
--- OUTSIDE RECORDS SUMMARY | 2025-05-19 13:35 | XMS_ITS | Clinical Summary ---
Author Organization [facility] Address [address] [place] [address] Care Team Providers Care Lawyer Real Estate Name Role Phone Matheus Boggs MD Primary Care Provider Mitchell Oliva MD Unavailable [phone] Allergies Active Allergy Reactions Criticality Noted Date [...] Active fluticasone (FLONASE) 50 mcg/actuation nasal spray [place] 2 Sprays into nose 2 times daily. [...] history exists Medical Devices Implanted Type Area Ordnance Keeper Device Identifier Shelf Expiration Date Model / Serial / Lot Tissue Matrix [id number] Implanted:Qty: 1 on 09/16/2014 by Mitchell Oliva MD at [facility] Abdomen * Twiigg 05/20/2016 [id number] / / [id number] Procedures Procedure Name Priority Date/Time Associated Diagnosis [...] AXIAL SKELETON (09/29/2000 9:30 AM EST) Narrative [facility] EXTERNAL RAD - 09/29/2000 10:13 [...] fective for All Dates) Name:Eulalia Walker Member ID:[id number] Relation to Subscriber:Self Name:Eulalia Walker Subscriber ID:[id number] Payer ID:[id number] Group ID:Not on file Type:Medicare Address: [facility] [place] [place] [address] [facility] MEDICARE [place] [id number] [facility] Care Teams Lawyer Real Estate Relationship Specialty Start Date End Date Matheus Boggs MD [address] [place] [address] PCP - General Family Medicine 09/14/14 Mitchell Olvia MD [facility] [address] [place] [address] General Surgery 07/28/22
--- OUTSIDE RECORDS SUMMARY | 2025-05-19 13:35 | XMS_ITS | Encounter Summary ---
Author Organization [employer] ([place], [place], [place]) Address [address] [place] [address] Care Team Providers Care Leather Products Supervisor Name Role Phone Matheus Boggs MD Primary Care Provider + [phone] Encounter Details Date Type Department Care Team (Late st Contact Info) Description 01/31/2020 Transcribed Document [facility] Family Medicine [facility] [place] [address] ProviderCristopher MD [address] [place] [address] Social History Tobacco Use Types Packs/Day [...] on filedocumented in this encounter Care Teams Leather Products Supervisor Relationship Specialty Start Date End Date Matheus Boggs MD [address] [place] [address] [place] [address] PCP - General Family Medicine 09/05/22 documented as of this encounter
--- OUTSIDE RECORDS SUMMARY | 2025-05-19 13:35 | XMS_ITS | Encounter Summary ---
Author Organization [employer] ([place], [place], [place]) Address [address] [place] [address] Care Team Providers Care Customer Retention Representative Name Role Phone Matheus Boggs MD Primary Care Provider + [phone] Encounter Details Date Type Department Care Team (Late st Contact Info) Description 02/01/2020 Transcribed Document [facility] [place] Family Medicine [facility] [place] [address] ProviderCristopher MD [address] [place] [address] Social History Tobacco Use Types [...] - 02/01/2020 12:09 EDT Electronically signed by [facility], [facility] Conversion Senior Water Resources Engineer Cerner at 11/06/2022 12:53 PM CDT documented in this encounter Plan of Treatment Not on file documented as of this encounter Visit Diagnoses Not on filedocumented in this encounter Care Teams Customer Retention Representative Relationship Specialty Start Date End Date Matheus Boggs MD [address] [place] [facility] [address] [place] [address] PCP - General Family Medicine 09/05/22 documented as of this encounter
--- OUTSIDE RECORDS SUMMARY | 2025-05-19 13:35 | XMS_ITS | Encounter Summary ---
Author Organization [employer] ([place], [place], [place], [place]) Address [address] [place] [address] Care Team Providers Care Research Phlebotomist Name Role Phone Matheus Boggs MD Primary Care Provider + [phone] Encounter Details Date Type Department Care Team (Late st Contact Info) Description 11/07/2020 Transcribed Document [facility] [place] [address] ProviderCristopher MD [address] [place] [address] Social History Tobacco Use Types Packs/Day [...] 11/07/2020 12:00 EDT Electronically signed by [facility] Conversion Exhibits Manager Cerner at 11/06/2022 12:49 PM CDT documented in this encounter Plan of Treatment Not on file documented as of this encounter Visit Diagnoses Not on filedocumented in this encounter Care Teams Research Phlebotomist Relationship Specialty Start Date End Date Matheus Boggs MD [address] [place] [facility] [address] [place] [address] PCP - General Family Medicine 09/05/22 documented as of this encounter
--- OUTSIDE RECORDS SUMMARY | 2025-05-19 13:35 | XMS_ITS | Encounter Summary ---
Author Organization [employer] ([place], [place], [place], [place]) Address [address] [place] [address] Care Team Providers Care Tractor Mechanic Apprentice Name Role Phone Matheus Boggs MD Primary Care Provider + [phone] Encounter Details Date Type Department Care Team (Late st Contact Info) Description 11/07/2020 Transcribed Document [facility] [place] Medicine [facility] [place] [address] ProviderCristopher MD [address] [place] [address] Social History Tobacco Use Types Packs/Day [...] on filedocumented in this encounter Care Teams Tractor Mechanic Apprentice Relationship Specialty Start Date End Date Matheus Boggs MD [address] [facility] [address] [place] [address] PCP - General Family Medicine 09/05/22 documented as of this encounter
--- OUTSIDE RECORDS SUMMARY | 2025-05-19 13:35 | XMS_ITS | Encounter Summary ---
Author Organization [employer] ([place], [place], [place], [place]) Address [address] [place] [address] Care Team Providers Care Engineering Patternmaker Name Role Phone Matheus Boggs MD Primary Care Provider + [phone] Encounter Details Date Type Department Care Team (Late st Contact Info) Description 01/31/2020 Transcribed Document [facility] Family Medicine [facility] [place] [address] ProviderCristopher MD [address] [place], [place] [...] on filedocumented in this encounter Care Teams Engineering Patternmaker Relationship Specialty Start Date End Date Matheus Boggs MD [address] [facility] [address] [place] [phone] PCP - General Family Medicine 09/05/22 documented as of this encounter
--- OUTSIDE RECORDS SUMMARY | 2025-05-19 13:35 | XMS_ITS | Encounter Summary ---
Author Organization [employer] ([place], [place], [place], [place]) Address [address] [place] [address] Care Team Providers Care Senior Training Specialist Name Role Phone Matheus Boggs MD Primary Care Provider + [phone] Encounter Details Date Type Department Care Team (Late st Contact Info) Description 11/07/2020 Transcribed Document [address] [address] Chris Keyes MD [address] [place] [address] Social History Tobacco Use Types Packs/Day Years [...] Daily Arnuity Ellipta 100 mcg, PRN, Inhalation, D22UYob aspirin 81 mg oral delayed release tablet 81 mg = 1 Tab, Oral, BID cefadroxil 500 mg oral capsule 500 mg = 1 Cap, Oral, Q12H Colace 100 mg oral capsule 100 mg = 1 Cap, PRN, Oral, BID fexofenadine 180 mg, Oral, Daily fluticasone 50 mcg/inh nasal spray 2 [place], PRN, Nasal, BID hydrochlorothiazide-irbesartan 12.5 mg-150 mg [...] filedocumented in this encounter Care Teams Senior Training Specialist Relationship Specialty Start Date End Date Matheus Boggs MD [address] [place] [facility] [address] [place] [address] PCP - General Family Medicine 09/05/22 documented as of this encounter
--- OUTSIDE RECORDS SUMMARY | 2025-05-19 13:35 | XMS_ITS | Encounter Summary ---
Author Organization [employer] ([place], [place], [place]) Address [address] [place] [address] Care Team Providers Care Caustic Cresylate Shift Superintendent Name Role Phone Matheus Boggs MD Primary Care Provider + [phone] Encounter Details Date Type Department Care Team (Late st Contact Info) Description 11/07/[address] [facility] [place] Family Medicine [facility] [address] ProviderCristopher MD [address] [place] [address] Social History Tobacco Use Types Packs/Day [...] On: 11/07/2020 16:35 EDT by NAGI TAPIA RN-Garment SupervisorLeg Breaker Progress Note Discharge Arrangements : Patient Post-Acute [...] Attend Multidisciplinary Rounds? : Yes NAGI TAPIA RN-Garment Supervisor - 11/07/2020 16:35 EDT Electronically signed by [facility], [facility] Conversion Water/Wastewater Engineer Cerner at 11/06/2022 1:02 PM CDT documented in this encounter Plan of Treatment Not on file documented as of this encounter Visit Diagnoses Not on filedocumented in this encounter Care Teams Caustic Cresylate Shift Superintendent Relationship Specialty Start Date End Date Matheus Boggs MD [address] [facility] [address] [place] [address] PCP - General Family Medicine 09/05/22 documented as of this encounter
--- OUTSIDE RECORDS SUMMARY | 2025-05-19 13:35 | XMS_ITS | Encounter Summary ---
Author Organization [employer] ([place], [place], [place], [place]) Address [address] [place] [address] Care Team Providers Care Noise Tester Name Role Phone Michelet Boggs MD Primary Care Provider + [phone] Encounter Details Date Type Department Care Team (Late st Contact Info) Description 11/07/2020 Transcribed Document [facility] [place] [facility] [place] [address] ProviderCristopher MD [address] [place] [address] Social History Tobacco Use Types Packs/Day [...] CDT [facility] [place] [address] MELISSA WALKER V :1945 Visit Time:11/06/2020 [...] if no drainage present Home Health Services: [place]--[phone] Please STOP taking the medication meloxicam. Discharge Follow Up Instructions: Follow-up Dr. Gonzalez 3 wks ([phone]) Follow Up Instructions: Continue SAMIA hose for 6 weeks Follow Up Instructions: Leave Aquacel dressing in place x 7-10d, then open to air. Follow-Up Appointments Follow Up with SHWETA DANGELO PA-ORMarycarmen When 11/28/2020 03:00 PM EDT Where: [address] [place], [place] [address] [address]- Medications What How Much When Instructions Next Dose acetaminophen-oxyCODONE (Percocet 5/ 325 oral tablet) 1 Tablet(s) Oral Every 4 Hours as needed for as needed for pain not to exceed 5 tablets/ day Pickup at [facility] aspirin (aspirin 81 mg oral delayed release tablet) 1 Tablet(s) Oral Two Times A Day Pickup at [facility] cefadroxil (cefadroxil 500 mg oral capsule) 1 Capsule(s) Oral Every 12 hours Duration: 7 Day(s) Pickup at [facility] docusate (Colace 100 mg oral capsule) 1 Capsule(s) Oral Two Times A Day as needed for for constipation Duration: 30 Day(s) Pickup at [facility] if needed acebutolol 200 Milligram(s) Oral [...] (fluticasone 50 mcg/ inh nasal spray) 2 [place](s) Nasal Two Times A Day as needed for Allergies as needed hydrochlorothiazide-irbesartan (hydrochlorothiazide-irbesartan 12.5 mg-150 mg oral tablet) 1 Tablet(s) Oral Every Day in am levothyroxine (Levoxyl) 125 Microgram(s) Oral Every Day in am liothyronine 5 Microgram(s) Oral Every Day in am montelukast (Singulair) 10 Milligram(s) Oral At Bedtime [facility] nitrofurantoin (nitrofurantoin macrocrystals 50 mg oral capsule) 1 Capsule(s) Oral At Bedtime [facility] Pharmacy Information [facility] [place]: [address] [facility] [address] [place], [place] [id number] [phone] Take your medications faithfully. Do NOT skip [...] of Dr. Gonzalez or Dr. Arthur, call [phone] If you are a patient of Dr. German, call [phone] Nurse Navigator: Ivanna Carrasco Office: [phone]; ; available during regular business hours cefadroxil [...] may report side effects to FDA at 1-885-RSE-0901. What other drugs will affect cefadroxil? Other drugs may affect cefadroxil, including prescription and vfok-yqs-ehyhdcx medicines, vitamins, and herbal products. Tell your [...] to ensure that the information provided by [employer]. ('Multum') is accurate, up-to-date, and complete, but no guarantee is made to that effect. Drug information contained herein may be time sensitive. Chegg information has been compiled for use by healthcare practitioners and consumers in the [place] and therefore Chegg does not warrant that uses outside of the [place] are appropriate, unless specifically indicated otherwise. At[employer] drug information does not endorse drugs, diagnose patients or recommend therapy. Panna drug information is an informational resource designed [...] effective or appropriate for any given patient. Chegg does not assume any responsibility for any aspect of healthcare administered with the aid of information Chegg provides. The information contained herein is not intended to cover all possible uses, directions, precautions, warnings, drug interactions, allergic reactions, or adverse effects. If you have questions about the drugs you are taking, check with your doctor, nurse or pharmacist. Copyright 9110-3300 [employer]. Version: 6.03. Revision Date: 07/24/2020. aspirin (oral) [...] What is aspirin? Aspirin is a salicylate (gl-DHW-to-ate) that is used to treat pain, and [...] may report side effects to FDA at 8-325-MPD-3167. What other drugs will affect aspirin? Ask [...] drugs may affect aspirin, including prescription and fpfa-gqb-rkerxlc medicines, vitamins, and herbal products. Not all [...] to ensure that the information provided by [employer]. ('Multum') is accurate, up-to-date, and complete, but no guarantee is made to that effect. Drug information contained herein may be time sensitive. Chegg information has been compiled for use by healthcare practitioners and consumers in the [place] and therefore Chegg does not warrant that uses outside of the [place] are appropriate, unless specifically indicated otherwise. At[employer] drug information does not endorse drugs, diagnose patients or recommend therapy. At[employer]das drug information is an informational resource designed [...] effective or appropriate for any given patient. [employer] does not assume any responsibility for any aspect of healthcare administered with the aid of information Chegg provides. The information contained herein is not intended to cover all possible uses, directions, precautions, warnings, drug interactions, allergic reactions, or adverse effects. If you have questions about the drugs you are taking, check with your doctor, nurse or pharmacist. Copyright 2206-0066 [facility] L-3 [employer]. Version: 16.. Revision Date: 03/08/2020. docusate (oral/rectal) [...] may report side effects to FDA at 4-237-JCR-4722. What other drugs will affect docusate? Other drugs may affect docusate, including prescription and ugih-eqn-duujpne medicines, vitamins, and herbal products. Tell your [...] to ensure that the information provided by [employer]. ('Multum') is accurate, up-to-date, and complete, but no guarantee is made to that effect. Drug information contained herein may be time sensitive. Chegg information has been compiled for use by healthcare practitioners and consumers in the [place] and therefore Chegg does not warrant that uses outside of the [place] are appropriate, unless specifically indicated otherwise. Chegg's drug information does not endorse drugs, diagnose patients or recommend therapy. Atraverdas drug information is an informational resource designed [...] effective or appropriate for any given patient. Chegg does not assume any responsibility for any aspect of healthcare administered with the aid of information Chegg provides. The information contained herein is not intended to cover all possible uses, directions, precautions, warnings, drug interactions, allergic reactions, or adverse effects. If you have questions about the drugs you are taking, check with your doctor, nurse or pharmacist. Copyright 7457-6107 [employer]. Version: 4.01. Revision Date: 01/25/2019. acetaminophen and [...] may report side effects to FDA at 9-710-MSR-4832. What other drugs will affect acetaminophen and [...] affect acetaminophen and oxycodone, including prescription and zeqn-hlz-jrxsbrh medicines, vitamins, and herbal products. Not all [...] to ensure that the information provided by Sel[employer]. ('Multum') is accurate, up-to-date, and complete, but no guarantee is made to that effect. Drug information contained herein may be time sensitive. Chegg information has been compiled for use by healthcare practitioners and consumers in the [place] and therefore Chegg does not warrant that uses outside of the [place] are appropriate, unless specifically indicated otherwise. Atraverdas drug information does not endorse drugs, diagnose patients or recommend therapy. Atraverdas drug information is an informational resource designed [...] effective or appropriate for any given patient. [facility] does not assume any responsibility for any aspect of healthcare administered with the aid of information [facility] provides. The information contained herein is not intended to cover all possible uses, directions, precautions, warnings, drug interactions, allergic reactions, or adverse effects. If you have questions about the drugs you are taking, check with your doctor, nurse or pharmacist. Copyright 2211-6973 [facility]. Version: 20.03. Revision Date: 08/25/2020. Emergency Awareness [...] Assistance with quitting is available by contacting 5-875-GDNI-NOW. This is a free resource providing counseling, [...] range between ( 0.0 and 7.0 ) [place]away #: [phone] K/uL -- Normal range between ( 0.16 and 1.00 ) Eos #: 0.12 x10(3)/uL -- Normal range between ( 0.00 and 0.80 ) [place]away %: 8.7 % -- Normal range between [...] was given the opportunity to ask questions. Patient/Director Operations Name: Patient/Director Operations Signature: Relationship to Patient: Clinician/Hospital Director Operations Signature: Date: documented in this encounter Plan of Treatment Not on file documented as of this encounter Visit Diagnoses Not on filedocumented in this encounter Care Teams Noise Tester Relationship Specialty Start Date End Date Michelet Boggs MD [address] [facility] [address] [place] [address] PCP - General Family Medicine 09/05/22 documented as of this encounter
--- OUTSIDE RECORDS SUMMARY | 2025-05-19 13:35 | XMS_ITS | Encounter Summary ---
Author Organization [employer] ([place], [place], [place], [place]) Address [address] [place] [address] Care Team Providers Care Dementia Program Director Name Role Phone Michelet Boggs MD Primary Care Provider + [phone] Encounter Details Date Type Department Care Team (Late st Contact Info) Description 02/01/2020 Transcribed Document [facility] [place] Family Medicine [address] [place] [address] ProviderCristopher MD [address] [place], [place] [phone] Social History Tobacco Use Types Packs/Day Years [...] On: 02/01/2020 17:16 EDT by NAGI TAPIA RN-Compressor Station Engineer Chief Initial Assessment I Previously Documented Living Environment [...] have PCP Listed? : Yes NAGI TAPIA, RN-Compressor Station Engineer Chief - 02/01/2020 17:16 EDT Initial Assessment II Sensory and Motor Deficits : None Current Home Treatments and Equipment : None Does the Patient have a Floor to SNF Benefit? : No NAGI TAPIA RN-Compressor Station Engineer Chief - 02/01/2020 17:16 EDT Discharge Needs I Anticipated Discharge Date : 02/01/2020 EDT Anticipated Discharge To, CM : Home with home health Current Home Treatment/Equipment : Current Home Treatment/Equipment No qualifying data available. Post Acute/Home Treatments : Bedside commode, Walker Documentation Status Complete : Yes NAIG TAPIA RN-Compressor Station Engineer Chief - 02/01/2020 17:16 EDT Discharge Needs II Professional Skilled Services : Professional Skilled Services No qualifying data available. Needs Assistance with Transportation : No Discharge Options Discussed with Patient : DME, Home Health NGAI TAPIA RN-Compressor Station Engineer Chief - 02/01/2020 17:16 EDT Narrative Note Narrative Note : 74yo female pt s/p RTKA. Met with pt and daughter at bedside this am during MDR. FRW and BSC obtained from [employer] and have been delivered. Referral sent to [facility] (chose in JA class) via [employer] and confirmed acceptance with intake. No other CM needs identified. NAGI TAPIA RN-Compressor Station Engineer Chief - 02/01/2020 17:16 EDT documented in this encounter Plan of Treatment Not on file documented as of this encounter Visit Diagnoses Not on filedocumented in this encounter Care Teams Dementia Program Director Relationship Specialty Start Date End Date Michelet Boggs MD [address] [facility] [address] [place] [address] PCP - General Family Medicine 09/05/22 documented as of this encounter
--- OUTSIDE RECORDS SUMMARY | 2025-05-19 13:35 | XMS_ITS | Encounter Summary ---
Author Organization [employer] ([place], [place], [place], [place]) Address [address] [place] [address] Care Team Providers Care Upstream Biomanufacturing Technician Name Role Phone Michelet Boggs MD Primary Care Provider + [phone] Encounter Details Date Type Department Care Team (Late st Contact Info) Description 02/01/2020 Transcribed Document [facility] [place] Family Medicine [facility] [place] [address] ProviderCristopher MD [address] [place] [id number] Social History Tobacco Use Types Packs/Day Years [...] mg, Oral, BID allerlgy shots 1, SubCutaneous, I1Mkogu Arnuity Ellipta 100 mcg, PRN, Inhalation, Q78PEuc aspirin 81 mg oral tablet 81 mg = 1 Tab, Oral, BID Colace 100 mg oral capsule 100 mg = 1 Cap, PRN, Oral, BID ferrous gluconate 324 mg (37.5 mg elemental iron) oral tablet 324 mg = 1 Tab, Oral, Daily fexofenadine 180 mg, Oral, Daily fluticasone 50 mcg/inh nasal spray 2 [place], PRN, Nasal, BID hydrochlorothiazide-irbesartan 12.5 mg-150 mg [...] 3. Pending Labs In Process SENDOUT REPORT [id number], [id number], RT - Routine, 01/31/20 10:41:00 EDT Pathology Tissue Request [id number], [id number], 01/31/20 10:41:00 EDT, Collected, RT - Routine, [...] on filedocumented in this encounter Care Teams Upstream Biomanufacturing Technician Relationship Specialty Start Date End Date Michelet Boggs MD [address] [place] [facility] [address] [place] [phone] PCP - General Family Medicine 09/05/22 documented as of this encounter
--- OUTSIDE RECORDS SUMMARY | 2025-05-19 13:36 | XMS_ITS | Encounter Summary ---
Author Organization [employer] ([place], [place], [place], [place]) Address [address] [place] [address] Care Team Providers Care Almond Paste Molder Name Role Phone Matheus Boggs MD Primary Care Provider + [phone] Encounter Details Date Type Department Care Team (Late st Contact Info) Description 01/31/2020 Transcribed Document [facility] [place] [facility] [place] [address] ProviderCristopher MD [address] [place], [place] [id number] Social History Tobacco Use Types Packs/Day Years [...] Emotional Support : Empathic/Engaged listening Spiritual and Pentecostalism : Prayer shared, Spiritual/Pentecostalism support provided PHANI BARLOW P - 01/31/2020 9:13 EDT Electronically signed by [facility], [facility] Conversion Shingler Cerner at 11/06/2022 12:54 PM CDT documented in this encounter Plan of Treatment Not on file documented as of this encounter Visit Diagnoses Not on filedocumented in this encounter Care Teams Almond Paste Molder Relationship Specialty Start Date End Date Matheus Boggs MD [address] [place] [facility] [address] [place] [phone] PCP - General Family Medicine 09/05/22 documented as of this encounter
--- OUTSIDE RECORDS SUMMARY | 2025-05-19 13:36 | XMS_ITS | Encounter Summary ---
Author Organization [employer] ([place], [place], [place], [place]) Address [address] [place] [address] Care Team Providers Care Rat Poisoner Name Role Phone Matheus Boggs MD Primary Care Provider + [phone] Encounter Details Date Type Department Care Team (Late st Contact Info) Description 01/31/2020 Transcribed Document [facility] [place] [facility] [place] [address] ProviderCristopher MD [address] [place] [address] Social History Tobacco Use Types [...] Anesthesiologist Procedure Case Attendee Role 2 : educational aide Case Attendee 2 : MO Macdonald RN Procedure Case Attendee Role 3 : educational aide Case Attendee 3 : Nanette Weston RN [...] 01/31/2020 8:37 EDT Electronically signed by Kee [facility] Conversion Director Of Special Education Cerner at 11/06/2022 1:06 PM CDT documented in this encounter Plan of Treatment Not on file documented as of this encounter Visit Diagnoses Not on filedocumented in this encounter Care Teams Rat Poisoner Relationship Specialty Start Date End Date Matheus Boggs MD [address] [place] [facility] [address] [place] [phone] PCP - General Family Medicine 09/05/22 documented as of this encounter
--- OUTSIDE RECORDS SUMMARY | 2025-05-19 13:36 | XMS_ITS | Encounter Summary ---
Author Organization [employer] ([place], [place], [place], [place]) Address [address] [place] [address] Care Team Providers Care Assistant Chief Of Police Name Role Phone Matheus Boggs MD Primary Care Provider + [phone] Encounter Details Date Type Department Care Team (Late st Contact Info) Description 02/01/2020 Transcribed Document [facility] [facility] [place] [address] ProviderCristopher MD [address] [place] [address] Social History Tobacco Use Types Packs/Day [...] Kent MD - 02/01/2020 2:07 [place] [id number] MARY WALKER V :1945 Visit Time:01/31/2020 [...] Up Instructions: Follow-up Dr. Gonzalez 3 wks ([phone]) Follow Up Instructions: Continue SAMIA hose for 6 weeks Follow Up Instructions: Leave Aquacel dressing in place x 7-10d, then open to air. Follow-Up Appointments Follow Up with SHWETA DANGELO PA-ORT When 02/21/2020 03:30 PM EDT Where: [facility] [place] [address]- Medications What How Much When Instructions Next [...] (fluticasone 50 mcg/ inh nasal spray) 2 [place](s) Nasal Two Times A Day as needed [...] of Dr. Gonzalez or Dr. Arthur, call [phone] If you are a patient of Dr. German, call [phone] Nurse Navigator: Ivanna Carrasco Office: [phone]; ; available during regular business hours Emergency [...] Assistance with quitting is available by contacting 7-866-PDSPNOW. This is a free resource providing counseling, [...] range between ( 0.0 and 7.0 ) [place] #: 0.72 K/uL -- Normal range between ( 0.16 and 1.00 ) Eos #: 0.10 x10(3)/uL -- Normal range between ( 0.00 and 0.80 ) [place] %: 7.6 % -- Normal range between [...] was given the opportunity to ask questions. Patient/Grocery Cashier Name: Patient/Grocery Cashier Signature: Relationship to Patient: Clinician/Hospital Grocery Cashier Signature: Date: Electronically signed by Interface, [facility] Conversion Stage Driver Cerner at 11/06/2022 1:12 PM CDT documented in this encounter Plan of Treatment Not on file documented as of this encounter Visit Diagnoses Not on filedocumented in this encounter Care Teams Assistant Chief Of Police Relationship Specialty Start Date End Date Matheus Boggs MD [address] [facility] [address] [place] [address] PCP - General Family Medicine 09/05/22 documented as of this encounter
--- OUTSIDE RECORDS SUMMARY | 2025-05-19 13:36 | XMS_ITS | Encounter Summary ---
Author Organization [employer] ([place], [place], [place], [place]) Address [address] [place] [address] Care Team Providers Care Boiler Coverer Helper Name Role Phone Matheus Boggs MD Primary Care Provider + [phone] Encounter Details Date Type Department Care Team (Late st Contact Info) Description 01/31/2020 Transcribed Document [facility] [place] [facility] [place] [address] ProviderCristopher MD [address] [place] [address] Social History Tobacco Use Types Packs/Day [...] Directive Type : Medical durable power of securities attorney (proxy) Copy Advance Directive Verified/on Chart [...] Legal Guardian : Daughter, Unaccompanied Support Person/Patient Referral Agent : Yes Support Person/Pt Rep Name : Lili White - dtr Fay Reese - dtr Support Person/Pt Rep Contact Information : [phone] Want Family/Rep/Phys Notified of Admit : No Emergency Contact #1 : Lili White Emergency Contact #1 Emergency Contact #1 Relationship : dtr Emergency Contact #2 : Fay Reese Emergency Contact #2 Emergency Contact #2 Relationship : dtr Information Obtained From : Patient Primary Language : Tajik Preferred Communication Mode : Verbal Communication Barrier : None Tap Dancer Needed : No Objects to Sharing Info [...] Level : 46 or > High Risk [place] Fall Interventions : Adequate lighting, Assistive devices [...] Source : Measured Height Entry Format : [place] Height, Feet : 5 ft(Converted to: 152 cm, 60 Inch) Height, Inches : 1.5 Inch(Converted to: 0 ft 2 Inch, 3.81 cm) Clinical Height : 156.21 cm Weight Source : Standing scale Weight Entry Format : [place] Clinical Dosing Weight : 78.32 kg Weight, Pounds : 172 lb Weight, Ounces : 5 oz Body Surface Area (BSA) : 1.79 m2 Body Mass Index : 32.1 kg/m2 (HI) [place] Body Weight : 49 kg Jaida Larios [...] Jaida Larios Rn - 01/31/2020 13:54 EDT [place] Suicide Severity Rating Scale (C-SSRS) CSSRS Past [...] Jaida Larios Rn - 01/31/2020 13:54 EDT Electronically signed by Kee [facility] Conversion Conditioning Room Worker Cerner at 11/06/2022 12:54 PM CDT documented in this encounter Plan of Treatment Not on file documented as of this encounter Visit Diagnoses Not on filedocumented in this encounter Care Teams Boiler Coverer Helper Relationship Specialty Start Date End Date Matheus Boggs MD [address] [place] [facility] [address] [place] [phone] PCP - General Family Medicine 09/05/22 documented as of this encounter
--- OUTSIDE RECORDS SUMMARY | 2025-05-19 13:36 | XMS_ITS | Encounter Summary ---
Author Organization [employer] ([place], [place], [place], [place]) Address [address] [place] [address] Care Team Providers Care Video Game Programmer Name Role Phone Matheus Boggs MD Primary Care Provider + [phone] Encounter Details Date Type Department Care Team (Late st Contact Info) Description 01/31/2020 Transcribed Document [facility] [place] [facility] [place] [address] ProviderCristopher MD [address] [place] [address] Social History Tobacco Use Types Packs/Day [...] Cristopher ProviderMD - 01/31/2020 10:35 AM CDT [facility] Main OR IntraOp Summary Primary Physician: DEAN ALVA MD-ORT Finalized Date/Time: 02/01/20 09:34:27 Pt. Name: MELISSA SIMON/Sex: 1945 Female Med Rec #: [id number] Physician: DEAN ALVA MD-ORT Financial #: [id number] Pt. Type: O Room/Bed: 64/ Admit/Disch: 01/31/20 10:45:00 - Institution: [facility] IntraOp Case Attendance Entry 1 Entry 2 Entry 3 Case Attendee DEAN ALVA Nichols, Tanya, ANITA HE CSA MD-ORT Role Performed Surgeon/Proceduralist, Scrub, Maintenance Apprentice, First First Time In 01/31/20 10:07:00 01/31/20 [...] Eulalia Pierce Crna OTHER, ATTENDEE Role Performed Infrastructure Analyst, First HEALTH ASSESSMENT AND TREATMENT TEACHER/Nurse Scow Derrick Operator Student Time In 01/31/20 10:07:00 01/31/20 10:07:00 [...] OTHER, ATTENDEE #1 HERMINIA RAINES SCHNELLE, JENNIFER, SCOW DERRICK OPERATOR -ANS Role Performed Vendor Anesthesiologist Scrub, First [...] RN 01/31/20 11:59:12 01/31/20 11:59:12 01/31/20 11:59:12 [facility] IntraOp Case Attendance Audit 01/31/20 11:59:12 Buckle Attaching Machine Operator: HAMILTGM Modifier: HAMILTGM 1 <+> Time [...] Procedure Knee Total Joint Replacement(Right) 01/31/20 11:50:30 Buckle Attaching Machine Operator: HAMILTGM Modifier: HAMILTGM 1 <*> Procedure [...] Joint Replacement(Right) <+> 9 Procedure 01/31/20 11:17:17 Buckle Attaching Machine Operator: HAMILTGM Modifier: HAMILTGM 8 <+> Case Attendee 8 <*> Procedure Knee Total Joint Replacement(Right) <+> 9 Case Attendee <+> 9 Role Performed <+> 9 Time In <+> 9 Other Attendee 01/31/20 10:40:56 Buckle Attaching Machine Operator: HAMILTGM Modifier: HAMILTGM 1 <+> Time [...] 8 <*> Procedure Knee Total Joint Replacement(Right) [facility] IntraOp Case Times Entry 1 Patient In Room Time 01/31/20 10:07:00 Out Room Time 01/31/20 11:57:00 Anesthesia Start Time 01/31/20 10:07:00 Stop Time 01/31/20 11:57:00 Surgery / Procedure Times Start Time 01/31/20 10:35:00 Stop Time 01/31/20 11:50:00 Last Modified By: Renetta Lawrence RN 01/31/20 11:59:11 [facility] IntraOp Case Times Audit 01/31/20 11:59:11 Buckle Attaching Machine Operator: HAMILTGM Modifier: HAMILTGM <+> 1 Out Room Time <+> 1 Stop Time 01/31/20 11:50:29 Buckle Attaching Machine Operator: HAMILTGM Modifier: HAMILTGM <+> 1 Stop Time [facility] IntraOp Cautery Entry 1 ESU Identification Cautery Type Monopolar ESU ID Number [id number] ID Type Hospital Number Cautery Settings Cut Setting 50 Coag Setting 50 ESU Grounding Pad Ground Pad Type Adult Grounding Pad Site Right Flank Grounding Pad Renetta Lawrence RN Applied By Grounding Pad Site Warm, Dry, Intact Skin Condition Before Cautery Grounding Pad Site Unchanged Skin Condition After Cautery Last Modified By: Renetta Lawrence RN 01/31/20 09:32:25 [facility] IntraOp Communication Entry 1 Entry 2 Communication To Family/Significant other Other Comment START REPORT Communication By Renetta Lawrence RN Hamilton, Gina M, RN Date and Time 01/31/20 10:37:00 01/31/20 11:26:00 Last Modified By: Renetta Lawrence RN Hamilton, Gina M, RN 01/31/20 10:37:14 01/31/20 11:26:26 [facility] IntraOp Communication Audit 01/31/20 11:26:26 Buckle Attaching Machine Operator: HAMILTGM Modifier: HAMILTGM <+> 2 Communication By <+> 2 Date and Time <+> 2 Communication To <+> 2 Comment [facility] IntraOp Counts Verification Entry 1 Procedure Knee Total Joint Replacement(Right) Count Info Count Type Sponge, Sharps, Miscellaneous Counts Verification Baseline/pre-procedure Sequence Count Results Not Applicable Counts Performed By Count Performed By Phoebe Mukherjee ST (Scrub) Count Performed By Renetta Lawrence RN (RN) Last Modified By: Renetta Lawrence RN 01/31/20 09:32:39 [facility] IntraOp Counts Final Entry 1 Procedure Knee Total Joint Replacement(Right) Final Count Info Count Type Sponge, Sharps, Miscellaneous Counts Verification Skin Closure/end of Sequence procedure Count Results Correct, surgeon notified Counts Performed By Count Performed By AIMEE CALABRESE CST (Scrub) Count Performed By Renetta Lawrence RN (RN) Last Modified By: Renetta Lawrence RN 01/31/20 11:24:00 [facility] IntraOp Counts Final Audit 01/31/20 11:24:00 Buckle Attaching Machine Operator: HAMILTGM Modifier: HAMILTGM 1 <*> Procedure Knee Total Joint Replacement(Right) 1 <+> Count Performed By (Scrub) 1 <+> Count Performed By (RN) [facility] IntraOp Cultures and Spec Summary Entry 1 Cultrures and Specimens Specimen Ordered: Yes Test(s) Routine/Path-Lab Requested/Final Disposition Last Modified By: Renetta Lawrence RN 01/31/20 09:33:05 General Comments: A. RIGHT KNEE BONES AND TISSUE [facility] IntraOp Departure from OR Entry 1 Integumentary Assessment Integumentary WDL Assessment WDL Transfer/Handoff Transfer to PACU Phase I Handoff Method Phone call Post-op Transport Bed (including Via specialty) Patient Transport Eulalia Tejada Crna, Accompanied by Renetta Lawrence RN Last Modified By: Renetta Lawrence RN 01/31/20 09:33:24 [facility] IntraOp Dressing and Packing Entry 1 Type Dressing Location OPERATIVE KNEE Wound Dressing Item Occlusive dressing, Skin Closure Glue Applied By ANITA MEJÍA CSA Other Comments AQUACEL AG, SAMIA HOSE, SCD SLEEVE Last Modified By: Renetta Lawrence RN 01/31/20 09:33:46 [facility] IntraOp Fire Risk Assessment Entry [...] Modified By: Renetta Lawrence RN 01/31/20 09:33:51 [facility] IntraOp General Case Entertainer & Comic 1 Case Information OR OR 05 [facility] Case Level 1 Room Verified Yes Wound Class I - Clean Specialty SN Orthopedic Anesthesia Type General ASA Class 2 Diagnosis Preop Diagnosis RIGHT KNEE OA Postop Same As Preop No Postop Diagnosis SEE DOCTOR'S POST OP NOTES Last Modified By: Renetta Lawrence RN 01/31/20 10:37:26 [facility] IntraOp General Case Data Audit 01/31/20 10:37:26 Buckle Attaching Machine Operator: LESTGPawel Modifier: HAMILTGM <+> 1 ASA Class [facility] IntraOp Implant Log Entry 1 Entry 2 Entry 3 Type Implant (Synthetic) Implant (Synthetic) Implant (Synthetic) Implant Log Implant Type Bone Cement Hardware Hardware Tissue Implant Type Implant CEMENT BONE SMPLX FEM CEMENTED CR NARROW TIB STEM SZ D [id number] Identification [id number] Description Implant Quantity 2 1 1 Implant Site OPSITE OPSITE OPSITE Implant Identification Model Number Implant Identification Serial Number Implant [id number] Identification Lot Number Implant [place] Identification Orthopaedics Bridge Saw Operator Name: Implant [id number] Identification Catalog Number Implant Size Implant Has an Yes Yes Yes Expiration Date Implant Expiration 02/17/21 09/17/29 11/17/28 Date Wasted Radioactive Material Time Implanted Tissue Implant Continue for Tissue Implant Documentation Tissue Identification Number Graft Prep Per Bridge Saw Operator Instructions: Tissue Preparation Method: Reconstitution Solution: Reconstitution Solution Lot Number Reconstitution Solution Expiration Date: Thawing Solution Thawing Solution Lot Number Thawing Solution Expiration Date Preparation Materials, Other Preparation Materials, Other Lot Number Preparation Materials, Other Expiration Date Tissue Prepared/Processed By Bridge Saw Operator Paperwork Completed Implant Type Comment Last Modified By: Renetta Lawrence RN Hamilton, Gina M, RN Hamilton, Gina M, RN 01/31/20 09:35:03 01/31/20 11:20:13 01/31/20 11:20:13 Entry 4 Entry 5 Type Implant (Synthetic) Implant (Synthetic) Implant Log Implant Type Hardware Hardware Tissue Implant Type Implant PATELLA CEMENTED PSN ASF MC 10MM VE Identification [id number] Description Implant Quantity 1 1 Implant Site OPSITE OPSITE Implant Identification Model Number Implant Identification Serial Number Implant [id number] Identification Lot Number Implant Identification Bridge Saw Operator Name: Implant Identification Catalog Number Implant Size Implant Has an Yes Yes Expiration Date Implant Expiration 04/19/27 11/18/23 Date Wasted Radioactive Material Time Implanted Tissue Implant Continue for Tissue Implant Documentation Tissue Identification Number Graft Prep Per Bridge Saw Operator Instructions: Tissue Preparation Method: Reconstitution Solution: Reconstitution Solution Lot Number Reconstitution Solution Expiration Date: Thawing Solution Thawing Solution Lot Number Thawing Solution Expiration Date Preparation Materials, Other Preparation Materials, Other Lot Number Preparation Materials, Other Expiration Date Tissue Prepared/Processed By Bridge Saw Operator Paperwork Completed Implant Type Comment Last Modified By: Renetta Lawrence RN Hamilton, Gina M, RN 01/31/20 11:20:13 01/31/20 11:20:13 [facility] IntraOp Implant Log Audit 01/31/20 11:20:13 Buckle Attaching Machine Operator: ALDA Modifier: ALDA <+> 2 Implant [...] Has an Expiration Date <+> 5 Type [facility] IntraOp Intraoperative Assessment Entry 1 [...] Modified By: Renetta Lawrence RN 01/31/20 09:35:17 [facility] IntraOp Intraoperative Equipment Entry 1 Type [...] Modified By: Renetta Lawrence RN 01/31/20 09:35:45 [facility] IntraOp Medication Admin Entry 1 Entry 2 Entry 3 Medication/Irrigant Bacitracin 50,00units Bacitracin 50,00units hydrogen peroxide 16oz powder vial powder vial - [id number] Combo Med List 1 - Combo Med 1 - Combo Med Time Administered Route of ADDED TO IRRIGATION ADDED TO IRRIGATION TOPICAL Administration Dose Dose [id number] Unit of Measure units units Volume IN 2000ML SALINE IN 3000ML SALINE Administered By DEAN ALVA KARTHIKEYAN, THARUN, KARTHIKEYAN, THARUN, MD-ORT -ORT -ORT Procedure Irrigation Irrigant Volume In Irrigant Volume Out Last Modified By: Renetta Lawrence RN Hamilton, Gina M, RN Hamilton, Gina M, RN 01/31/20 09:36:34 01/31/20 09:36:34 01/31/20 09:36:34 Entry 4 Medication/Irrigant vancomycin 1Gm vial - [id number] Combo Med List Time Administered Route of TOPICAL Administration Dose Dose 1 Unit of Measure gram Volume Administered By DEAN ALVA MD-ORMarycarmen Procedure Irrigation Irrigant Volume In Irrigant Volume Out Last Modified By: Renetta Lawrence RN 01/31/20 09:36:34 [facility] IntraOp Patient Positioning Entry 1 [...] Yes Verified by Surgeon Last Modified By: eRnetta Lawrence RN 01/31/20 09:37:13 [facility] IntraOp Sign In Entry 1 [...] Modified By: Renetta Lawrence RN 01/31/20 09:38:26 [facility] IntraOp Sign Out Entry 1 [...] Modified By: Renetta Lawrence RN 01/31/20 11:50:35 [facility] IntraOp Sign Out Audit 01/31/20 11:50:35 Buckle Attaching Machine Operator: HAMILTGM Modifier: HAMILTGM <+> 1 RN Sign Out Signature Date/Time [facility] IntraOp Skin Prep Entry 1 Procedure Knee Total Joint Replacement(Right) Prescribed Yes Pre-Surgical Prep Completed Prep Area OPERATIVE THIGH TO TOES CIRCUMFRENTIALLY Intraop Prep Integumentary WDL Assessment WDL Prep Agents Alcohol, Chloraprep, DuraPrep, Chlorhexadine gluconate Prep by Renetta Lawrence RN Hair Removal Methods No hair removal performed Last Modified By: Renetta Lawrence RN 01/31/20 09:37:27 [facility] IntraOp Surgical Procedures Entry 1 [...] OF ANCEF INFUSED AT 1019 PER ANESTHESIA [facility] IntraOp Surgical Procedures Audit 01/31/20 11:50:29 Buckle Attaching Machine Operator: HAMILTGM Modifier: HAMILTGM <+> 1 Stop 01/31/20 10:36:27 Buckle Attaching Machine Operator: HAMILTGM Modifier: HAMILTGM 1 <*> Start 1 <*> Start 1 <*> Start [facility] IntraOp Temp Regulation Devices Entry 1 Temp Regulation Temperature Forced Air Warming Regulation Device device, Warm blankets Temperature Upper body Regulation Site Temperature Device 43 DEGREES CELCIUS Setting Temperature Eulalia Tejada, Sascha Regulation Device Applied by Last Modified By: Renetta Lawrence RN 01/31/20 09:37:39 [facility] IntraOP Time Out Entry 1 [...] Modified By: Renetta Lawrence RN 01/31/20 10:36:25 [facility] IntraOP Time Out Audit 01/31/20 10:36:25 Buckle Attaching Machine Operator: LESTGPawel Modifier: RADHAILTGM 1 <+> Time Out Pause Time 1 <*> Procedure to be Performed Knee Total Joint Replacement(Right) [facility] IntraOp Tourniquet Entry 1 Type Pneumatic Serial/Unit Number [id number] Setting 300 mmHg Pheumatic Yes Tourniquet Checked Per Protocol Size 34 inches Placement Thigh, right upper Skin Protection - Yes Padded Under Cuff Applied By ANITA MEJÍA, CSA Removed By ANITA MEJÍA, CSA Times Start Time 01/31/20 10:35:00 Stop Time 01/31/20 11:32:00 Total Time 57 calculated manually (Mins) Last Modified By: Renetta Lawrence RN 01/31/20 11:33:06 [facility] IntraOp Tourniquet Audit 01/31/20 11:33:06 Buckle Attaching Machine Operator: LESTGM Modifier: HAMILTGM <+> 1 Total Time calculated manually (Mins) <+> 1 Stop Time 01/31/20 10:36:53 Buckle Attaching Machine Operator: HAMILTGM Modifier: HAMILTGM <+> 1 Start Time Case Comments <None> Finalized By: DORETHA ADEN Document Signatures Signed By: Renetta Lawrence RN 01/31/20 11:59 DORETHA ADEN 02/01/20 09:34 Unfinalized History Date/Time Username Reason for Unfinalizing Freetext Reason for Unfinalizing 02/01/20 09:31 [id number] Correct Billing Electronically signed by Kee, [facility] Conversion Necktie Stitcher Cerner at 11/06/2022 12:53 PM CDT documented in this encounter Plan of Treatment Not on file documented as of this encounter Visit Diagnoses Not on filedocumented in this encounter Care Teams Video Game Programmer Relationship Specialty Start Date End Date Matheus Boggs MD [address] [facility] [address] [place] [phone] PCP - General Family Medicine 09/05/22 documented as of this encounter
--- OUTSIDE RECORDS SUMMARY | 2025-05-19 13:36 | XMS_ITS | Encounter Summary ---
Author Organization [employer] ([place], [place], [place], [place]) Address [address] [place] [address] Care Team Providers Care Salesperson Women'S Hats Name Role Phone Matheus Boggs MD Primary Care Provider + [phone] Encounter Details Date Type Department Care Team (Late st Contact Info) Description 01/31/2020 Transcribed Document [facility] [place] [facility] [place] [address] ProviderCristopher MD [address] [place] [address] Social History Tobacco Use Types Packs/Day [...] ProviderMD - 01/31/2020 10:35 AM CDT [facility] Main OR PACU Summary Primary Physician: DEAN ALVA MD-ORT Finalized Date/Time: 01/31/20 15:49:48 Pt. Name: MARY WALKER/Sex: 1945 Female Med Rec #: [id number] Physician: DEAN ALVA MD-ORT Financial #: [id number] Pt. Type: O Room/Bed: 648/1 Admit/Disch: 01/31/20 06:33:00 - Institution: [facility] Main OR PACU I Case Times Entry [...] Unfinalizing 01/31/20 15:49 DOROTHY Modify Pick List documented in this encounter Plan of Treatment Not on file documented as of this encounter Visit Diagnoses Not on filedocumented in this encounter Care Teams Salesperson Women'S Hats Relationship Specialty Start Date End Date Matheus Boggs MD [address] [facility] [address] [place] [phone] PCP - General Family Medicine 09/05/22 documented as of this encounter
--- OUTSIDE RECORDS SUMMARY | 2025-05-19 13:36 | XMS_ITS | Encounter Summary ---
Author Organization [employer] ([place], [place], [place], [place]) Address [address] [place] [address] Care Team Providers Care Research Subject Name Role Phone Matheus Boggs MD Primary Care Provider + [phone] Encounter Details Date Type Department Care Team (Late st Contact Info) Description 02/01/2020 Transcribed Document [facility] [place] Family [place] [address] ProviderCristopher MD [address] [place] [address] Social History Tobacco Use Types Packs/Day [...] On: 02/01/2020 17:21 EDT by NAGI TAPIA RN-Linux Systems Analyst Final Discharge Planning Discharge Arrangements : Patient [...] Services (Related/SOC within 3 days)-06 NAGI TAPIA RN-Linux Systems Analyst - 02/01/2020 17:21 EDT documented in this encounter Plan of Treatment Not on file documented as of this encounter Visit Diagnoses Not on filedocumented in this encounter Care Teams Research Subject Relationship Specialty Start Date End Date Matheus Boggs MD [address] [facility] [address] [place] [phone] PCP - General Family Medicine 09/05/22 documented as of this encounter
--- OUTSIDE RECORDS SUMMARY | 2025-05-19 13:36 | XMS_ITS | Encounter Summary ---
Author Organization [email or web address] ([place], [place], [place], [place]) Address [address] [place] [address] Care Team Providers Care Plastic Injection Mold Maker Name Role Phone Matheus Boggs MD Primary Care Provider + [phone] Encounter Details Date Type Department Care Team (Late st Contact Info) Description 01/31/2020 Transcribed Document [facility] [place] Family Medicine [address] [place] [address] ProviderCristopher MD [address] [place] [address] Social History Tobacco Use Types [...] on filedocumented in this encounter Care Teams Plastic Injection Mold Maker Relationship Specialty Start Date End Date Matheus Boggs MD [address] [facility] [address] [place], [place] [phone] PCP - General Family Medicine 09/05/22 documented as of this encounter
--- OUTSIDE RECORDS SUMMARY | 2025-05-19 13:36 | XMS_ITS | Encounter Summary ---
Author Organization [employer] ([place], [place], [place], [place]) Address [address] [place] [address] Care Team Providers Care Criminal Investigator Customs Name Role Phone Matheus Boggs MD Primary Care Provider + [phone] Encounter Details Date Type Department Care Team (Late st Contact Info) Description 01/31/2020 Transcribed Document [facility] Family Medicine [facility] [place] [address] ProviderCristopher MD [address] [place] [address] Social History Tobacco Use Types Packs/Day [...] EDU BARNES PT - 02/01/2020 12:07 EDT [employer] Architect Goals Mobility/Bed Mobility LTG PT Grid Goal [...] : R knee ROM 0-102 degrees, Joint horse riding coach or instructor present during treatment. Pt ambulated x 150ft [...] the text rendition version of the form. [place] PT Charges PT Therap. Exercise 15 min : 2 Gait Training Each 15 Min : 1 EDU BARNES, PT - 02/01/2020 12:07 EDT documented in this encounter Plan of Treatment Not on file documented as of this encounter Visit Diagnoses Not on filedocumented in this encounter Care Teams Criminal Investigator Customs Relationship Specialty Start Date End Date Matheus Boggs MD [address] [place] [facility] [address] [place] [phone] PCP - General Family Medicine 09/05/22 documented as of this encounter
--- OUTSIDE RECORDS SUMMARY | 2025-05-19 13:36 | XMS_ITS | Encounter Summary ---
Author Organization [employer] ([place], [place], [place], [place]) Address [address] [place] [address] Care Team Providers Care Assembly Riveter Name Role Phone Matheus Boggs MD Primary Care Provider + [phone] Encounter Details Date Type Department Care Team (Late st Contact Info) Description 01/31/2020 Transcribed Document [facility] [place] [address] [place] [address] ProviderCristopher MD [address] [place] [address] Social History Tobacco Use Types [...] Phillips STUDENT-OCCUPATIONAL THERAPIST - 01/31/2020 14:28 EDT [facility]dc Goals, OT Grooming LTG Grid [...] the text rendition version of the form. [place] OT Charges OT Eval Moderate Complexity : 1 Malinda Phillips STUDENT-OCCUPATIONAL THERAPIST - 01/31/2020 14:28 EDT documented in this encounter Plan of Treatment Not on file documented as of this encounter Visit Diagnoses Not on filedocumented in this encounter Care Teams Assembly Riveter Relationship Specialty Start Date End Date Matheus Boggs MD [address] [place] [facility] [address] [place] [phone] PCP - General Family Medicine 09/05/22 documented as of this encounter
--- OUTSIDE RECORDS SUMMARY | 2025-05-19 13:36 | XMS_ITS | Encounter Summary ---
Author Organization [employer] ([place], [place], [place], [place]) Address [address] [place] [address] Care Team Providers Care Petroleum Engineer Name Role Phone Matheus Boggs MD Primary Care Provider + [phone] Encounter Details Date Type Department Care Team (Late st Contact Info) Description 02/01/2020 Transcribed Document [facility] [place] Family [place] [facility] [place] [address] ProviderCristopher MD [address] [place] [phone] Social History Tobacco Use Types Packs/Day [...] On: 02/01/2020 17:20 EDT by NAGI TAPIA RN-Trim Die MakerCommercial Finance Analyst Progress Note Discharge Arrangements : Patient Post-Acute [...] Attend Multidisciplinary Rounds? : Yes NAGI TAPIA RN-Trim Die Maker - 02/01/2020 17:20 EDT Electronically signed by [facility], [facility] Conversion Water Service Supervisor Cerner at 11/06/2022 1:00 PM CDT documented in this encounter Plan of Treatment Not on file documented as of this encounter Visit Diagnoses Not on filedocumented in this encounter Care Teams Petroleum Engineer Relationship Specialty Start Date End Date Matheus Boggs MD [address] [facility] [address] [place] [phone] PCP - General Family Medicine 09/05/22 documented as of this encounter
--- OUTSIDE RECORDS SUMMARY | 2025-05-19 13:36 | XMS_ITS | Data Portability ---
Author Organization [facility] NATE Eduardo [facility] Address [address] [facility] [facility] [address] [place] [address] Care Team Providers Care Data Support Specialist Name Role Phone DEAN ALVA Orthopedic Surgeon NGUYEN JANE Primary Care Provider Assessment No assessment recorded. Plan of Treatment Reminders Order Date Submit Date Provider Last Modified By Organization Details Last Modified Time Details Appointments None recorded. Lab inflammator y bowel disease Ab panel, serum 2023 024 [facility], [address] [place] [address], [phone], 4 07:05:06 celiac disease comprehensi ve panel, serum 2023 024 [facility], [address] [place] [address], [address], 4 11:53:43 ccp (cyclic citrullinat ed peptide) iga+igg, serum 2023 024 [email or web address] [facility], [address] [place] [address], [address], 4 08:24:44 rf (rheumatoid factor), serum 2023 024 [facility], [address] [place] [address], [address], 4 11:53:41 uric acid, serum or plasma 2023 024 [facility], [address] [place], [address], 4 11:53:37 C reactive protein, QN, serum or plasma 2023 024 [facility], [address] [place] [address], [address], 4 11:53:39 ESR (erythrocyt e sedimentati on rate), blood 2023 024 [facility], [address] [place] [address], [address], 4 12:46:20 KEVIN (antinuclea r antibodies) panel, serum 2023 024 [email or web address] [facility], [address] [place] [address], [address], 4 08:24:45 Referral physical therapist referral - 2.5 years s/p Chris TKA - slight loss of ROM/strengt hening, pain modalites prn, progressive ROM, gait control - please eval and treat 2022 023 [facility], [address], [place], [address], 3 15:24:16 Procedures None recorded. Surgeries None recorded. Imaging XR, wrist + hand 2023 024 [facility], [address] [place], [address], 4 10:58:37 Medication Orders None recorded. Patient TargetsNo targets recorded. Patient Instructions Encounter Date Encounter Id Patient Instructions Last Modified By Organization Details Last Modified Time 10/27/2023 [id number] 1. Mrs. Simon has a history of left-sided otalgia despite a normal otoscopic exam today. She has a history of allergic rhinitis and does have clear postnasal drainage which could be contributing to eustachian tube dysfunction. 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 I explained to her that her otalgia in the face of a normal otoscopic exam is likely either the eustachian tube dysfunction combined with inflammation of the TMJ both of which I would recommend treating. We will treat with use of both fluticasone and azelastine each twice daily along with auto inflation 20-30 times per day in addition to standard TMJ precautions with use of extra strength Tylenol twice daily 2. Warm compress, soft diet, anti-inflammatori es recommended to patient to manage otalgia. 3. Auto-inflate the ears using the modified valsalva maneuver 15-20 times daily. 4. TMJ handout provided to patient. 5 Follow up prn. ángel Not available 10/27/2023 09:25:34 Reason for Referral Physical Therapist Referral for History of bilateral knee arthroplasty 2.5 years s/p Chris TKA - slight loss of ROM/strengthening, pain modalites prn, progressive ROM, gait control - please eval and treat Referring Physician: Anita Vega, Orthopedic Surgery, Encounter Date: 03/20/2023 Results Created Date Observation Date Name Description Value Unit Range Abnormal Flag Note LastModifiedBy Organization Detail LastModifiedTime 01/07/20 24 01/07/2024 URIC ACID uric acid 7.2 mg/dL 2.4-5. 7 high Refer ence range s are based on [facility] norms and do not neces greg farmer late with treat ment janie ts. In patie nts with an estab lishe d diagn osis of gout under going Urate Lower ing Thera py (ULT) , the 2011 [facility] Joseph ye[facility] s for Manag ement of Gout recom mend a targe t uric acid level of < 6 mg/dL in all patie nts, or lower in certa in circu mstan shasta. Arthr itis Care and Resea [facility] Vol 64 No 10, 2011 [facility] atolo [facility] ----- ----- ----- ----- ----- ----- ----- ----- ----- ----- ----- ---- Not Available [facility] [address] [place] [address], [phone], 01/07/2024 11:53:37 01/07/20 24 01/07/2024 C REACT AGA PROTE IN C reactive protein 0.59 mg/dL 0.00-0 .49 high Not Available [facility] [address] [place] [address], [address], 01/07/2024 11:53:39 01/07/20 24 01/07/2024 RF SCREE N, QUANT . rf screen, quant. <10.0 [IU]/ mL 0.0-13 .9 normal Not Available [facility] [address] [place] [address], [address], 01/07/2024 11:53:40 01/07/20 24 01/07/2024 CONNIE C PANEL IgA 165 mg/dL 70-400 normal Not Available [facility] [address] [place] [address], [address], 01/26/2024 12:30:50 01/07/20 24 01/26/2024 CONNIE C PANEL gliadin Ab IgA 1.0 U/mL normal Value Inter preta tion ----- ----- ----- ---- <15.0 Antib dotty not detec bushra > or = 15.0 Antib dotty detec bushra Not Available [facility] [address] [place] [address], [address], 01/26/2024 12:30:50 01/07/20 24 01/26/2024 CONNIE C PANEL gliadin Ab IgG <1.0 U/mL normal Value Inter preta tion ----- ----- ----- ---- <15.0 Antib dotty not detec bushra > or = 15.0 Antib dotty detec bushra Not Available [facility] [address] [place] [address], [address], 01/26/2024 12:30:50 01/07/20 24 01/26/2024 CONNIE C PANEL ttg, IgA <1.0 U/mL normal Value Inter preta tion ----- ----- ----- ---- <15.0 Antib dotty not detec bushra > or = 15.0 Antib dotty detec bushra Not Available [facility] [address] [place] [address], [address], 01/26/2024 12:30:50 01/07/20 24 01/26/2024 CONNIE C PANEL endomysial Ab, IgA NEGATI VE negati ve normal Not Available [facility] [address] [place] [address], [address], 01/26/2024 12:30:50 01/07/20 24 01/07/2024 ESR, AUTOM ATED ESR, automated 11 mm 0-29 normal Not Available [facility] [address] [place] [address], [address], 01/07/2024 12:46:20 01/07/20 24 01/19/2024 INFLA MMATO RY BOWEL DISEA SE DIFFE RENTI ATION sacch.cerevi siae Ab,IgG <20.0 U normal Refer ence Range : <=20 NEGAT AGA 20.1- 29.9 EQUIV OCAL >=30 POSIT AGA Antib odies to Sacch aromy shasta cerev isiae are found in appro ximat cody 75% of patie nts with Crohn 's disea se, 15% of patie nts with ulcer ative colit is, and 5% of the healt hy popul ation . High antib dotty titer s incre ase the likel ihood of disea se, espec ially Crohn 's disea se, and are assoc iated with more aggre ssive disea se. As the infla mmati on in Crohn 's disea se is focus ed at the gut mucos a, most patie nts have IgA antib odies to S cerev isiae and half of these also have IgG antib odies . A minor ity of patie nts have only IgG antib odies to S cerev isiae . Not Available [facility] [address] [place], [address], 01/19/2024 10:46:59 01/07/20 24 01/19/2024 INFLA MMATO RY BOWEL DISEA SE DIFFE RENTI ATION sacch.cerevi siae Ab,IgA <20.0 U normal Refer ence Range : <=20. 0 NEGAT AGA 20.1- 24.9 EQUIV OCAL >=25. 0 POSIT AGA Antib odies to Sacch aromy shasta cerev isiae are found in appro ximat cody 75% of patie nts with Crohn 's disea se, 15% of patie nts with ulcer ative colit is, and 5% of the healt hy popul ation . High antib dotty titer s incre ase the likel ihood of disea se, espec ially Crohn 's disea se, and are assoc iated with more aggre ssive disea se. As the infla mmati on in Crohn 's disea se is focus ed at the gut mucos a, most patie nts have IgA antib odies to S cerev isiae and half of these also have IgG antib odies . A minor ity of patie nts have only IgG antib odies to S cerev isiae . Not Available [facility] [address] [place], [address], 01/19/2024 10:46:59 01/07/20 24 01/19/2024 INFLA MMATO RY BOWEL DISEA SE DIFFE RENTI ATION anca screen NEGATI VE negati ve normal Antin uclea r antib dotty (KEVIN) was also detec bushra in this sampl e. To verif y the prese nce of KEVIN and deter mine its titer and patte rn, the test for KEVIN perfo rmed by indir ect immun ofluo resce nce (IFA) on HEp-2 cells may be order ed. ANCA Scree n inclu kd evalu ation for p-ANC A, c-ANC A and atypi ynes p-ANC A. A posit aga ANCA scree n refle xes to xochilt and shyam rn(s) , e.g., cytop lindsey howe rn (c-AN CA), marisol howe rn (p-AN CA), or atypi ynes p-ANC A shyam rn. c-ANC A and p-ANC A are obser devan in vascu litis , where as atypi ynes p-ANC A is obser devan in IBD (Infl ammat ory Bowel Disea se). Atypi ynes p-ANC A is detec bushra in about 55% to 80% of patie nts with ulcer ative colit is but only 5% to 25% of patie nts with Crohn 's disea se. Not Available [facility] [address] [place], [address], 01/19/2024 10:46:59 01/07/20 24 01/19/2024 INFLA MMATO RY BOWEL DISEA SE DIFFE RENTI ATION proteinase-3 Ab <1.0 ai <1.0 normal <1.0 AI No Antib dotty Detec bushra > or = 1.0 AI Antib dotty Detec bushra Autoa ntibo dies to prote inase -3 (OH-3 ) are accep bushra as romeo cteri stic for granu lomat osis with polya ngiit is (GPA, Wegen er's) , and are detec table in 95% of the histo logic ally prove n cases . The cytop lindsey torres IFA shyam rn, (c-AN CA), is based large ly on autoa ntibo dy to OH-3 which serve s as the prima ry antig en. These autoa ntibo dies are prese nt in activ e disea se. Not Available [facility] [address] [place], [address], 01/19/2024 10:46:59 01/07/20 24 01/19/2024 INFLA MMATO RY BOWEL DISEA SE DIFFE RENTI ATION myeloperoxid ase Ab <1.0 ai <1.0 normal <1.0 AI No Antib dotty Detec bushra > or = 1.0 AI Antib dotty Detec bushra Autoa ntibo dies to myelo perox idase (MPO) are commo nly assoc iated with the follo wing small -vess el vascu litid es: micro scopi c polya ngiit is, polya rteri tis nodos a, [place] -Stra uss syndr ome, necro tizin g and cresc entic glome rulon ephri tis and occas ional ly granu lomat osis with polya ngiit is (GPA, Wegen er's) . The perin uclea r IFA shyam rn, (p-AN CA) is based large ly on autoa ntibo dy to myelo perox idase which serve s as the prima ry antig en. These autoa ntibo dies are prese nt in activ e disea se. Not Available [facility] [address] [place] [address], [address], 01/19/2024 10:46:59 01/07/20 24 01/19/2024 KEVIN REFLE X COMME NT KEVIN reflex comment see below normal REFLE X TESTI NG IN PROGR ESS INCLU KD: Anti- DNA (ds) Ab, SM/RN P Abs, SS-A/ SS-B Abs, and Scler oderm a Ab Testi ng could take up to 7 days to compl ete. Not Available [facility] [address] [place] [address], [address], 01/19/2024 10:49:46 01/07/20 24 01/26/2024 ANTI- CCP anti-ccp <16 units normal Refer ence Range Negat aga: <20 Weak Posit aga: 20-39 Moder ate Posit aga: 40-59 Stron g Posit aga: >59 Not Available [facility] [address] [place], [address], 01/26/2024 12:30:47 01/07/20 24 01/26/2024 KEVIN W/ REFLE X KEVIN screen POSITI VE negati ve abnormal KEVIN IFA is a first line scree n for detec ting the prese nce of up to appro ximat cody 150 autoa ntibo dies in vario us autoi mmune disea ses. A posit aga KEVIN IFA resul t is sugge stive of autoi mmune disea se and refle xes to titer and bradte rn. Furth er labor atory testi ng may be consi dered if clini jose j indic ated. For addit ional infor nolvia yoon, césar e refer to http: //[facility] elise yoon.Que stDia gnost ics.c om/fa q/FAQ 177 (This link is being provi ded for infor matio nal/ educa david l purpo ses only. ) Not Available [facility] [address] [place] [address], [address], 01/26/2024 12:30:49 01/07/20 24 01/26/2024 KEVIN W/ REFLE X KEVIN titer 1:80 titer high A low level KEVIN titer may be prese nt in pre-c linic al autoi mmune disea ses and rashawn l indiv idual s. Refer ence Range <1:40 Negat aga 1:40- 1:80 Low Antib dotty Level >1:80 [place] bushra Antib dotty Level Not Available [facility] [place], [address], 01/26/2024 12:30:49 01/07/20 24 01/26/2024 KEVIN W/ REFLE X KEVIN pattern SEE BELOW abnormal Nucle ar, Multi ple Nucle ar Dots Multi ple nucle ar dots (6-20 in numbe r per cell) are assoc iated with prima ry bilia ry chola ngiti s (PBC) , syste gayle autoi mmune rheum atic disea ses (SARD ) and derma tomyo sitis . AC-6: Multi ple Nucle ar Dots Inter natio nal Conse nsus on KEVIN Patte rns (http s://d oi.or g/10. 1515/ cclm- 2017- 0052) Not Available [facility] [address] [place] [address], [address], 01/26/2024 12:30:49 01/07/20 24 01/19/2024 KEVIN REFLE X TESTI NG DNA (ds) Ab NEGATI VE negati ve normal Not Available [facility] [address] [place] [address], [address], 01/19/2024 10:50:08 01/07/20 24 01/19/2024 KEVIN REFLE X TESTI NG sm antibody <1.0 NEG ai <1.0 neg normal Not Available [facility] [address] [place] [address], [address], 01/19/2024 10:50:08 01/07/20 24 01/19/2024 KEVIN REFLE X TESTI NG sm/power checker Ab <1.0 NEG ai <1.0 neg normal Not Available [facility] [address] [place] [address], [address], 01/19/2024 10:50:08 01/07/20 24 01/19/2024 KEVIN REFLE X TESTI NG ss-A Ab <1.0 NEG ai <1.0 neg normal Not Available [facility] [address] [place] [address], [address], 01/19/2024 10:50:08 01/07/20 24 01/19/2024 KEVIN REFLE X TESTI NG ss-B Ab <1.0 NEG ai <1.0 neg normal Not Available [facility] [address] [place] [address], [address], 01/19/2024 10:50:08 01/07/20 24 01/19/2024 KEVIN REFLE X TESTI NG scleroderma Ab <1.0 NEG ai <1.0 neg normal Not Available [facility] [address] [place] [address], [address], 01/19/2024 10:50:08 01/07/20 24 01/26/2024 KEVIN REFLE X TESTI NG DNA (ds) Ab NEGATI VE negati ve normal Not Available [facility] [address] [place] [address], [address], 01/26/2024 12:30:52 01/07/20 24 01/26/2024 KEVIN REFLE X TESTI NG sm antibody <1.0 NEG ai <1.0 neg normal Not Available [facility] [address] [place] [address], [address], 01/26/2024 12:30:52 01/07/20 24 01/26/2024 KEVIN REFLE X TESTI NG sm/power checker Ab <1.0 NEG ai <1.0 neg normal Not Available [facility] [address] [place] [address], [address], 01/26/2024 12:30:52 01/07/20 24 01/26/2024 KEVIN REFLE X TESTI NG ss-A Ab <1.0 NEG ai <1.0 neg normal Not Available [facility] [address] [place] [address], [address], 01/26/2024 12:30:52 01/07/20 24 01/26/2024 KEVIN REFLE X TESTI NG ss-B Ab <1.0 NEG ai <1.0 neg normal Not Available [facility] [address] [place] [address], [address], 01/26/2024 12:30:52 01/07/20 24 01/26/2024 KEVIN REFLE X TESTI NG scleroderma Ab <1.0 NEG ai <1.0 neg normal Not Available [facility] [address] [place] [address], [address], 01/26/2024 12:30:52 03/20/20 23 03/20/2023 [facility]R, [facility], [facility] [place] [address] [place] [address] Mary phelps Name: CLEMENT phelps : 1944 Mary phelps Orderi ng Provid er: ANITA GARCIA EXAM DATE: 2022 EXAM: XR CHRIS KNEES 3 VIEWS HISTOR Y: Follow up of prior surger y. COMPAR ELAINE: 02/22/20 22 FINDIN GS: Again visual ized are bilate ral total knee arthro plasti es. There is no eviden ce of loosen ing or compli cation . No fractu re is identi fied. IMPRES OCTAVIO: 1. There are bilate ral total knee arthro plasti es in place withou t eviden ce of loosen ing or compli cation . Interp reted By: Effie xie MD Electr onical ly Signed By: Effie xie MD on 023 1:12 PM [email or web address] [facility] [place] [address], [place], [address], 04/03/2023 09:00:09 10/28/19 24 10/11/2021 audio gram, pure tone thres hold No observ ation record ed. BARCODE Not Available 2023 09:50:18 01/07/20 24 01/07/2024 [facility] [address] [address] Mary phelps Name: CLEMENT phelps : 1944 Mary phelps Orderi ng Provid er: ROSSANA RAY Y EXAM DATE: 2023 EXAM: XR CHRIS HANDS AND WRISTS 2VWS HISTOR Y: Bilate ral hand and wrist pain. COMPAR ELAINE: None. FINDIN GS: The bones of the hands are normal in alignm ent. There is mild ulnar minus varian ce in the wrists . There are mild to modera te degene rative change s in the first carpom etacar pal joint, and mild degene rative change s in the trisca phe joint and radioc arpal joint bilate rally. There are mild diffus e degene rative change s in the metaca rpopha langea l joints and interp halang eal joints . No fractu re is identi fied. IMPRES OCTAVIO: 1. There are mild diffus e degene rative change s in the hands and wrists . Interp reted By: Effie xie MD [facility] onical ly Signed By: Effie xie MD on 024 10:53 AM [email or web address] [facility] [address] [facility], [place], [address], 01/08/2024 11:19:34 02/23/20 24 02/23/2024 [facility] [address] [address] Patien t Name: CLEMENT Hernandez t : 1944 Patilaura t Orderi ng Provid er: HENRY GÓMEZ EXAM DATE: 2023 EXAM: XR LT KNEE 3 VIEWS COMPAR ELAINE: 023 HISTOR Y: Follow -up of prior surger violet GUERRA GS: Again seen is a left knee total arthro plasty . There is no eviden ce of loosen ing. No fractu re is identi fied. Contra latera l knee: There is a total knee arthro plasty is place. IMPRES OCTAVIO: 1. There is a left total knee arthro plasty in place withou t eviden ce of loosen ing. Interp reted By: Effie xie MD [facility] onical ly Signed By: Effie xie MD on 02/23/20 24 8:55 AM [email or web address] [facility] [address] [place], [address], 02/23/2024 09:12:09 Result Notes Documentation Provider Name and Address Organization Details Recorded Time Xr, Knee, 3 View : [facility] [address] [place] [address] Patient Name: CLEMENT SIMON Patient : 1945 Patient Ordering Provider: ANITA VEGA EXAM DATE: 03/20/2023 EXAM: XR CHRIS KNEES 3 VIEWS HISTORY: Followup of prior surgery. COMPARISON: 02/21/2022 FINDINGS: Again visualized are bilateral total knee arthroplasties. There is no evidence of loosening or complication. No fracture is identified. IMPRESSION: 1. There are bilateral total knee arthroplasties in place without evidence of loosening or complication. Interpreted By: Xander Black MD A VEGA PA-C [address] [place] [address], [phone] 04/03/2023 09:00:09 Xr, Wrist + Hand : [address] [place] [address] Patient Name: CLEMENT SIMON Patient : 1945 Patient Ordering Provider: CHRISTINA NUR EXAM DATE: 01/07/2024 EXAM: XR CHRIS HANDS AND WRISTS 2VWS HISTORY: Bilateral hand and wrist pain. COMPARISON: None. FINDINGS: The bones of the hands are normal in alignment. There is mild ulnar minus variance in the wrists. There are mild to moderate degenerative changes in the first carpometacarpal joint, and mild degenerative changes in the triscaphe joint and radiocarpal joint bilaterally. There are mild diffuse degenerative changes in the metacarpophalangeal joints and interphalangeal joints. No fracture is identified. IMPRESSION: 1. There are mild diffuse degenerative changes in the hands and wrists. Interpreted By: Xander Black MD Poppy dean (Nicole)[facility] 01/08/2024 11:19:34 Xr, Knee, 3 View : [facility] [place] [address] [place] [address] Patient Name: CLEMENT SIMON Patient : 1945 Patient Ordering Provider: HENRY GÓMEZ EXAM DATE: 02/23/2024 EXAM: XR LT KNEE 3 VIEWS COMPARISON: 03/20/2023 HISTORY: Follow-up of prior surgery. FINDINGS: Again seen is a left knee total arthroplasty. There is no evidence of loosening. No fracture is identified. Contralateral knee: There is a total knee arthroplasty is place. IMPRESSION: 1. There is a left total knee arthroplasty in place without evidence of loosening. Interpreted By: Xander Black MD Y GÓMEZ PA-C [address] [place], [address], [facility] 02/23/2024 09:12:09 Problems Name Problem SNOMED Code Status Onset Date Resolution Date Notes Provider Name and Address Organization Details Recorded Time History of total knee arthroplast y [id number] Active 2020 DEAN SAUNDERS MD [address] [place] [address], [phone], [facility] 17:00:28 Lumbar radiculopat hy [id number] Active 2021 MASTER FLOWERS PA-C [address] [place] [address], [phone], [facility] 2 09:50:24 Problem Notes None recorded. Procedures Surgical History Date Name Laterality Status Provider Name and Address Organization Details Recorded Time 02/21/20 21 Injection - Joint/Bursa, Major completed ANITA VEGA PA-C [address] [place], [address], [facility] 02/20/2021 10:37:26 05/09/20 20 Injection - Joint/Bursa, Major completed Radha Gallegos [facility] 05/09/2020 14:15:35 01/31/20 20 Total knee arthroplasty completed Radha Gallegos [facility] 03/14/2020 15:21:15 01/13/20 20 Ingestion Challenging completed AMINAH CHRISTIAN MD [address] [place] [address], [address], [facility] 01/14/2020 11:15:32 01/13/20 20 Allergy Skin Testing/Drug or Biologics completed AMINAH CHRISTIAN MD [address] [place] [address], [phone], [facility] 01/14/2020 11:15:50 12/29/19 20 Injection - Joint/Bursa, Major completed Lisa Carrasco [facility] 12/28/2019 10:19:36 10/06/19 20 Injection - Joint/Bursa, Major completed Lisa Danilo [facility] 10/05/2019 15:37:04 07/15/20 19 Injection - Joint/Bursa, Major [place], [address], [facility] 07/15/2019 10:24:17 01/09/20 19 Injection - Joint/Bursa, Major [place], [address], [facility] 01/08/2019 14:45:10 11/06/19 17 Injection - Joint/Bursa, Major completed Bessie DANGELO PA-C [address] [place], [address], [facility] 11/05/2016 13:53:47 Total hysterectomy completed [facility] 11/05/2016 13:16:20 Thyroid uptake measurement completed [facility] 11/05/2016 13:16:47 Other completed [facility] 11/05/2016 13:18:07 Unlisted px phrnx adnd/tnsl completed [facility] 11/05/2016 13:17:31 Orthopedic Surgery completed [facility] 11/05/2016 13:18:33 Hernia repair w/mesh completed [facility] 11/05/2016 13:18:45 section completed [facility] 10/27/2023 08:47:45 appendectomy completed [facility] 10/27/2023 08:47:58 ligation of fallopian tube completed [facility] 10/27/2023 08:48:12 functional endoscopic sinus surgery completed [facility] 10/27/2023 08:48:45 total knee replacement completed Evelin Talavera [facility] 01/07/2024 09:50:51 Imaging Results None recorded. Procedure Notes None recorded. Medical Equipment None Reported. Allergies Allergen ID Allergen Name Allergen Category Reaction Reaction Severity Criticality Documentation Date Start Date Code Code System Note Provider Name and Address Organization Details Recorded Time [id number] penicilla mine medicatio n Not available Not available Not available 11/05/2016 7975 RxNorm AMINAH CHRISTIAN MD [address] [place] [address], [phone], [facility] 0 11:17:45 578135 codeine medicatio n Not available Not available Not available 11/05/2016 2670 RxNorm Daycatrina Elise [facility] 7 13:13:10 588098 aspirin medicatio n Not available Not available Not available 11/05/2016 1191 RxNorm Day Elise [facility] 7 13:13:30 911211 Keflex medicatio n Not available Not available Not available 11/05/2016 95921 7 RxNorm Daycatrina Elise [facility] 7 13:13:36 140873 Non-stero idal anti-infl ammatory agent (substanc e) medicatio n Not available Not available Not available 10/27/2023 13153 5008 SNOMED Patrice Donaldson [facility] 4 08:36:18 210221 Terramyci n medicatio n Not available Not available Not available 10/27/2023 95328 4 RxNorm Patrice Donaldson [facility] 4 08:36:50 327804 Percodan medicatio n Not available Not available Not available 10/27/2023 40995 RxNorm Patrice Donaldson [facility] 4 08:37:18 388144 Bactrim medicatio n Not available Not available Not available 10/27/2023 70856 9 RxNorm Patrice Donaldson [facility] 4 08:46:49 Medications Name Sig Start Date Stop Date Status Note LastModified by Organization Details LastModified Time gentamicin 60mg xylitol capsule [10621] MIX THE CONTENTS OF 1 OF EACH CAPSULE WITH DILUENT. APPLY TO AFFECTED AREAS. PERFORM TWICE DAILY. active Not Available Not Available No t Available clindamycin /mupirocin/ itraconazol e 150/20/50mg topical capsule [97414] MIX THE CONTENTS OF 1 OF EACH CAPSULE WITH DILUENT. APPLY TO AFFECTED AREAS. PERFORM TWICE DAILY. active Not Available Not Available No t Available spray kit 5ml USE FIVE ML FOR MEDICATIO N ADMINISTR ATION WITH SPRAY BOTTLE- DIRECTION S FOR USE (SK), #2 30ML SPRAY BOTTLES, #1 FUNNEL, SALINE 5ML VIALS #300ML active Not Available Not Available No t Available Singulair 10 mg tablet Take 1 tablet every day by oral route. active Not Available Not Available No t Available fluconazole 100 mg tablet TAKE 2 TABLETS TODAY, THEN TAKE 1 TABLET ONCE DAILY. active Not Available Not Available No t Available fluticasone propionate 50 mcg/actuati on blister powder for inhalation Inhale 2 puffs twice a day by inhalatio n route. active Not Available Not Available No t Available nitrofurant oin macrocrysta l 50 mg capsule TAKE 1 CAPSULE BY MOUTH NIGHTLY AT BEDTIME. TAKE WITH MEAL/FOOD active Not Available Not Available No t Available irbesartan 150 mg-hydrochl orothiazide 12.5 mg tablet TAKE 2 TABLETS BY MOUTH ONCE DAILY FOR HIGH BLOOD PRESSURE. active Not Available Not Available No t Available azithromyci n 250 mg tablet TAKE 2 TABLETS BY MOUTH TODAY THEN 1 TABLET BY MOUTH ONCE A DAY FOR 4 DAYS 10/26 completed Not Available Not Available Not Available clindamycin HCl 150 mg capsule TAKE 4 CAPSULES BY MOUTH 1 HOUR BEFORE DENTAL APPOINTME NT active Not Available Not Available No t Available Tylenol Arthritis Pain 650 mg tablet,exte nded release Take 2 tablets every 8 hours by oral route. active Not Available Not Available No t Available acebutolol 400 mg capsule TAKE 1 CAPSULE BY MOUTH TWICE DAILY. active Not Available Not Available No t Available amlodipine 5 mg tablet TAKE 1 TABLET BY MOUTH ONCE DAILY. active Not Available Not Available No t Available ciprofloxac in 500 mg tablet TAKE 1 TABLET BY MOUTH TWICE A DAY FOR 7 DAYS 10/26 completed Not Available Not Available Not Available liothyronin e 5 mcg tablet TAKE 1 TABLET BY MOUTH ONCE DAILY. active Not Available Not Available No t Available meloxicam 7.5 mg tablet TAKE 1 TABLET BY MOUTH ONCE DAILY. 01/06 completed Not Available Not Available Not Available levothyroxi ne 100 mcg tablet TAKE 1 TABLET BY MOUTH ONCE DAILY FOR THYROID. active Not Available Not Available No t Available cephalexin 500 mg capsule TAKE 1 CAPSULE BY MOUTH THREE TIMES A DAY 10/26 completed Not Available Not Available Not Available buspirone 7.5 mg tablet Take 1 tablet twice a day by oral route. active Not Available Not Available No t Available omeprazole 20 mg capsule,del ayed release TAKE 1 CAPSULE BY MOUTH ONCE EVERY MORNING. active Not Available Not Available No t Available pravastatin 20 mg tablet Take 1 tablet every day by oral route. active Not Available Not Available No t Available GNP Opti-Vitami ns tablet Take by oral route. active Not Available Not Available No t Available azelastine 137 mcg (0.1 %) nasal spray active Not Available Not Available Not Available acebutolol 200 mg capsule TAKE ONE CAPSULE BY MOUTH TWICE DAILY active Not Available Not Available No t Available levofloxaci n 500 mg tablet TAKE 1 TABLET BY MOUTH ONCE DAILY FOR 7 DAYS. active Not Available Not Available No t Available estradiol 0.01% (0.1 mg/gram) vaginal cream APPLY VAGINALLY 1/2 GRAM OR BLUEBERRY SIZE EVERY OTHER NIGHT active Not Available Not Available No t Available methylpredn isolone 4 mg tablets in a dose pack TAKE 6 TABLETS ON DAY 1,THEN 5 TABS ON DAY 2,THEN 4 TABS ON DAY 3, 3 TABS ON DAY 4,THEN 2 TABS ON DAY 5 AND 1 TAB ON DAY 6. *TAKE WITH FOOD* active Not Available Not Available No t Available albuterol sulfate HFA 90 mcg/actuati on aerosol inhaler USE 2 PUFFS EVERY 4-6 HOURS NEEDED FOR SHORTNESS OF BREATH OR WHEEZING active Not Available Not Available No t Available Percocet 5 mg-325 mg tablet Take 1 tablet every 4 hours by oral route as needed. 2020 active Not Available Not Available Not Avai lable fluticasone propionate 50 mcg/actuati on nasal spray,suspe nsion USE 1-2 SPRAYS INTO BOTH NOSTRILS ONCE A DAY NEEDED active Not Available Not Available No t Available doxycycline hyclate 100 mg tablet TAKE 1 TABLET BY MOUTH TWICE A DAY active Not Available Not Available No t Available nitrofurant oin monohydrate /macrocryst als 100 mg capsule TAKE 1 CAPSULE BY MOUTH TWICE DAILY. active Not Available Not Available No t Available levothyroxi ne active 100mg Not Available Not Available Not Available irbesartan active Not Available Not Av ailable Not Available Tylenol active Not Available Not Avail able Not Available azelastine active Not Available Not Av ailable Not Available fexofenadin e active 180mg Not Available Not Available Not Available Qvar active Not Available Not Availa ble Not Available SUSTAIN active Not Available Not Avail able Not Available levocetiriz ine active Not Available Not Available Not Available diclofenac 1 % topical gel APPLY TOPICALLY 4 TIMES DAILY NEEDED FOR PAIN. active Not Available Not Available No t Available telmisartan 80 mg-amlodipi ne 10 mg tablet Take 1 tablet every day by oral route. 08/24 completed Not Available Not Available Not Available diclofenac 1.5 % topical drops APPLY TO AFFECTED NAILS BEFORE USING SOLUTION/ OINTMENT TREATMENT (30 DAY SUPPLY) active Not Available Not Available No t Available Myrbetriq 50 mg tablet,exte nded release TAKE 1 TABLET BY MOUTH ONCE DAILY. active Not Available Not Available No t Available Arnuity Ellipta 100 mcg/actuati on powder for inhalation INHALE ONE PUFF INTO THE LUNGS DAILY NEEDED FOR SHORTNESS OF AIR active Not Available Not Available No t Available Paxlovid 300 mg (150 mg x 2)-100 mg tablets in a dose pack TAKE 2 TABS OF NIRMATREL VIR (150MG EACH) AND 1 TAB OF RITONAVIR (100MG EACH) TWICE DAILY FOR 5 DAYS active Not Available Not Available No t Available Vitals Date Recorded Body height Body mass index (BMI) Body weight Body temperature Heart rate Systolic And Diastolic Provider Name and Address Organization Details Last Updated DateTime 4 154.94 cm 34.1 kg/m2 69374.0 3 g 97.9 [degF] 58 /min 144/62 mm[Hg] Patrice Donaldson [facility] 4 08:42:15 Date Recorded Body height Body mass index (BMI) Body weight Heart rate Oxygen saturation Oxygen saturation in Arterial blood by Pulse oximetry Systolic And Diastolic Provider Name and Address Organization Details Last Updated DateTime 4 154.94 cm 33.1 kg/m2 92074.6 6 g 57 /min 97 % 97 % 128/80 mm[Hg] Evelin Talavera [facility] 09:53:11 Date Recorded Body height Body mass index (BMI) Body weight Provider Name and Address Organization Details Last Updated DateTime 02/23/2024 154.94 cm 33.1 kg/m2 83584.66 g Kristen Perera [facility] 02/23/2024 08:40:16 Date Recorded Body height Provider Name an d Address Organization Details Last Updated DateTime 03/20/2023 154.94 cm Lisa Carrasco [facility] 0 03/20/2023 12:57:41 Date Recorded Body height Body mass index (BMI) Body weight Heart rate Systolic And Diastolic Provider Name and Address Organization Details Last Updated DateTime 04/15/2022 154.94 cm 34 kg/m2 92918.63 g 60 /min 167/64 mm[Hg] Fay West [facility] 04/15/2022 09:18:02 Social History Question Answer Notes LastModified by [email or web address] Details LastModified Time Tobacco Smoking Status [facility] 11/05/2016 13:15:26 Accident Related Injury No [email or web address] Information not available 11/05/2016 What Is Your Level Of Caffeine Consumption? Moderate [email or web address] Information not available 11/05/2016 Which Of Your Hands Is Dominant? Right [email or web address] Information not available 11/05/2016 Have You Been Treated For This Problem Before? No [email or web address] Information not available 11/05/2016 Will This Be Filed As Workers' Compensation? No [email or web address] Information not available 11/05/2016 Marital Status [email or web address] Informati on not available 11/05/2016 What Was The Date Of Your Most Recent Tobacco Screening? 01/07/2024 [email or web address] Information not available 01/07/2024 Has Tobacco Cessation Counseling Been Provided? No [email or web address] Information not available 11/05/2016 Work Related Injury? No [email or web address] Information not available 11/05/2016 Sex: Unknown Functional Status Question Answer Note LastModified by [employer] ion Details LastModified Time Do you use any illicit or recreational drugs? No [email or web address] Information not available 11/05/2016 What is your level of alcohol consumption? None [email or web address] Information not available 11/05/2016 Are you currently employed? No [email or web address] Information not available 11/05/2016 What is your occupation? Retired [email or web address] Information not available 11/05/2016 Mental Status None recorded. Family History Relationship Description Onset Age of this Age Resolved Age Notes LastModified by Organization Details LastModified Time Unspecified Relation Malignant neoplastic disease [email or web address] Not available 03/05 12:50:27 Unspecified Relation Diabetes mellitus [email or web address] Not available 03/05 12:50:32 Unspecified Relation Hypertensive disorder [email or web address] Not available 03/05 12:50:37 Unspecified Relation Cerebrovascu lar accident [email or web address] Not available 12:50:42 Medical History Condition Response Allergies/Hayfever N Anxiety/Depression N Other N Gout N Thyroid Disease N Kidney Stones N Heart Conditions N Hernia N Migraines N COPD N Glaucoma N Pneumonia N Skin Problems N Immune System Disorder N Anesthesia Complications N Heart Attack (MN) N Mental Illness N Neurological Problems N Diabetes N Rheumatic Fever N Bleeding Disorder N Arthritis Y Seizures/Epilepsy N Blood Clot N Tuberculosis N Genetic Disorder N AIDS/HIV N Cancer N Stroke N Asthma N Blood Thinners N Alcohol Overuse/Alcohol Abuse N Sleep Apnea N High Cholesterol Y Liver Disease N Included as Review of Systems N Hypertension Y Osteoporosis Y Kidney Disease N Gynecological HistoryNo gynecological history recorded. Obstetrics History GPAL:G 0 P 0 0 0 0 Past Encounters Encounter ID Performer Location Encounter Start Date Encounter Closed Date Diagnosis/Indication Diagnosis SNOMED-CT Code Diagnosis ICD10 Code Diagnosis IMO Codes Diagnosis Note [id number] Bessie DANGELO PA-C [facility] [address] [place] [address] 11/05/2016 12:46:48 11/05/2016 13:59:49 Knee pain 07352764 M25.562 M25.561 Osteoarthr itis of knee 377212835 M17.0 injected left, no NSAID's due to allergy [id number] Bessie DANGELO PA-C [facility] [address] [place] [address] 01/08/2019 13:06:07 01/08/2019 14:58:25 Knee pain 06872768 M25.562 M25.561 Bilateral knee arthritis and left hip trochanter ic bursitis. Patient has had a pain management center do injections in her low back and hip for the bursitis as well as give her a sciatic belt to wear. She has not had any physical therapy. I strongly recommende d this course of action over the measures that she had described. Regarding her knees were going to try conservati ve measures. No luna to proceed with total knee arthroplas ty. Bilateral injection and new perception of meloxicam today. Greater tr ochanteric pain syndrome 0116393 M70.60 [id number] Bessie DANGELO PA-C [facility] [address] [place] [address] 07/15/2019 09:38:07 07/15/2019 10:31:47 Osteoarthritis of knee 563573280 M17.0 Worsening arthritis in the right knee. Unilateral CSI today in follow-up for contralate ral. Discussed with PCP about increasing meloxicam from 7.5-15 mg daily. Continue conservati ve measures until quality-of -life deems arthroplas ty is appropriat e [id number] DEAN Yoon MD [facility] [address] [place] [address] 08/24/2019 14:25:54 08/24/2019 16:38:01 Knee pain 63441095 M25.561 Osteoarthr itis of knee 301622586 M17.9 Allergy to cephalosporin 907273416 Z88.1 [id number] Bessie DANGELO PA-C [facility] [address] [place] [address] 10/06/2019 09:32:08 10/06/2019 09:53:04 Osteoarthritis of knee 589740797 M17.0 [id number] Bessie DANGELO PA-C [facility] [address] [place] [address] 12/29/2019 09:37:47 12/29/2019 10:22:26 Osteoarthritis of knee 818384172 M17.0 [id number] AMINAH CHRISTIAN MD [facility] [address] [facility] ,[address] [place] [address] 01/13/2020 13:25:08 01/18/2020 09:37:32 Allergic rhinitis 65595799 J30.9 antihistam ine PRN Adverse re action to drug 17971986 T50.905A negative skin test to cefazolin ok to use IV cefazolin as prophylaxi s Allergy to penicillin 91 825696 Z88.0 No IgE mediated reaction to penicillin , OK to have penicillin , amoxicilli n and augmentin - Diagnostic testing was explained, risk and benefits were discussed, patient agreed with the plan. - Skin testing was done with Pre-Pen and Pen G. Testing was negative with good negative and positive control. Both Pre-Pen and Dee were Negative. - A graded challenge of amoxicilli n was performed in the office and the patient tolerated it well with out ANY subjective or objective reaction. - discussed the possibilit y of a delayed reaction and contact office if this happens - As far as her penicillin allergy is concerned, negative skin test and challenge indicates no penicillin allergy. This holds true for IgE mediated reactions to penicillin , and this testing/ch allenge cannot predict future non IgE mediated or idosyncrat ic reactions. However she has similar risk to develop those adverse reactions as general population . Explained to the patient as well. Osteoarthr itis of knee 087982999 M17.9 follow up with ortho [id number] DEAN Yoon MD SURGERY SCHEDULE [address] [place] [address] 02/07/2020 11:57:27 02/07/2020 14:06:47 [id number] Bessie DANGELO PA-C [facility] [address] [place] [address] 02/21/2020 14:48:42 02/21/2020 15:35:49 Postoperative care 798796325 Z48.89 Patient should continue with home health that she is unable to get out of the house safely. I've asked that she focus on flexion above all of the things. Continue with BUSHRA hose additional 3 weeks. She can shower without covering her incision. Follow-up in 3 weeks' time for three-view x-ray with Dean yoon M.D. can discontinu e narcotics and begin driving when she reaches 115 of flexion [id number] MD SABRINA NINOI [facility] [address] [address] 03/14/2020 14:39:02 03/14/2020 16:03:24 History of total knee arthroplasty 1478966355 105 Z96.427 [id number] MD SABRINA NINOI [facility] [address] [address] 05/09/2020 14:00:53 05/09/2020 15:24:26 History of total knee arthroplasty 8097969812 105 Z96.651 Osteoarthr itis of knee 049788687 M17.12 [id number] MD SABRINA NINOI [facility] [address] [address] 09/21/2020 12:01:11 09/21/2020 13:48:20 Osteoarthritis of knee 485907398 M17.12 History of total knee arthroplasty 0306618215 105 Z96.076 [id number] DEAN Yoon MD SURGERY SCHEDULE [address] [place] [address] 11/06/2020 09:58:54 11/07/2020 07:55:38 [id number] SHERRILL CANALESI [facility] [address] [address] 11/28/2020 14:28:40 11/28/2020 15:48:08 History of total knee arthroplasty 8692705962 105 Z96.659 1. Patient is 3 weeks status post left knee arthroplas ty. She is doing well at this time. Continue with DVT prophylaxi s as instructed . She will transition to outpatient physical therapy at [facility]. Patient is allowed to drive at this current time since she is taking no pain medication . She'll follow up in 3-[address] Jodie yoon. [id number] THARUN KARTHIKEYA N, MD [facility] [address] [address] 12/26/2020 15:14:23 12/26/2020 16:59:18 History of total knee arthroplasty 5074703006 105 Z96.312 [id number] ANITA VEGA PA-C [facility] [address] [place] [address] 02/20/2021 09:21:07 02/20/2021 10:27:30 Low back pain 054539203 M54.5 2. Refer to physical therapy for back and hip discomfort . History of total knee arthroplasty 9014809929 105 Z96.659 1. assessment : Status post 15 weeks left knee arthroplas ty Plan: Doing great. Most patients can expect to see steady improvemen t for up to 1 year following arthroplas ty. Controvers ies surroundin g dental prophylaxi s reviewed. NSAIDs prn for residual pain/swell ing. Patient did receive injection into left pes anserine bursa today without incident. Routine f/u at 1 years, or prn. Pes anseri nus bursitis of left knee [id number] 381295 M70.52 [id number] ANITA VEGA PA-C [facility] [address] [address] 02/21/2022 09:32:31 02/21/2022 11:05:57 History of bilateral knee arthroplasty 5662860218 661688 Z96.653 Assessment : History of bilateral knee arthroplas ty Plan: Doing great. Controvers ies surroundin g dental prophylaxi s reviewed. NSAIDs prn for residual pain/swell ing. Routine f/u at 2 years, or prn. Localized swelling, mass and lump, neck 005961992 R22.1 Patient is experienci ng swelling of the left side of her neck directly at the supraclavi cular area. There is no palpable nodule or mass, however there is prominent swelling in comparison the contralate ral side. I do believe this is necessary to work-up but will defer to PCP. [id number] DIOGO PETERS, HOLLOW [employer]KER NEUROSURG [facility] [address] [place] [address] 03/05/2022 12:43:04 03/05/2022 15:40:27 Lumbar radiculopathy 003463599 M54.16 HPI: Ms. Simon is a 76-year-ol d female who we were requested to see by Anita Vega for evaluation of her low back and left leg pain. She reports this has been going on for several years and that she has worked with Dr. Gonzalez previously to help with injections . However she recently had her left knee replaced (10/2020) and that has been causing more symptoms on the left side of her low back into her hip and thigh at times down to her foot. She does not recall a specific incident that caused this to be problemati c. It is increased with bending or prolonged standing and she can improve it with lying down with her legs out straight. She has not done recent physical therapy for her back, she does take Tylenol at night as well as she has had some injections into her left hip. She would like to be evaluated to see if there is anything surgically that can be addressed prior to continuing with injections and she reports she is intolerant to opioid medication s. She denies dia bowel or bladder control loss she does report urgency of both. She had a lumbar MRI from [facility] on May 31, 2021. She does feel that her symptoms have progressed since that study was completed. ASSESSMENT : Low back pain with radiation to the left lower extremityI MAGING: I have read the radiologis t's report from her lumbar MRI from May 31, 2021. This revealed degenerati ve changes at multiple levels with mild lateral recess narrowing at L3-4 and L4-5. Nurse practition er visit PLAN: Lumbar MRI without contrast Lumbar flexion-ex tension x-rays Ms. Simon will have an updated lumbar MRI as her symptoms have progressed from her previous MRI in 2020. She will also have standing flexion-ex tension lumbar x-rays to evaluate for instabilit y since her symptoms are increased with prolonged standing. She will return to our office after these images are completed to review the studies. Based on the results we will determine if she could benefit from further injection therapy or surgical evaluation . She verbalized understand ing of these instructio ns and is agreeable to this plan. She has no further questions or concerns at this time. She is happy with this plan of care. Thanks for the referral. [id number] MASTER FLOWERS PA-C [facility]UR[facility]I [facility] [address] [place] [address] 04/15/2022 08:32:16 04/17/2022 14:59:01 Lumbar radiculopathy 945277095 M54.16 76-year-ol d female with worsening left lumbar radiculopa thy. I reviewed the imaging CD provided lumbar MRI and flexion and extension x-rays that was performed at [facility] with Dr. Pickering. This shows mild-to-mo derate degenerati ve changes. No significan t neural compressio n or malalignme nt. There is no instabilit y. The patient does not demonstrat e any focal motor deficit. At this time Dr. pickering is not recommendi ng any surgical interventi on. It is likely the patient is experienci ng lumbar radiculopa thy, given the distributi on of the patient's pain. We recommend physical therapy specifical ly for her left lumbar radiculopa thy as well as a reevaluati on with Dr. gonzalez, to consider a lumbar epidural steroid injection. The patient may follow up with our service as needed moving forward. [id number] ANITA VEGA PA-C [facility] [address] [address] 03/20/2023 12:47:41 03/20/2023 13:43:11 History of bilateral knee arthroplasty [id number] 635103 Z96.653 Assessment : History of bilateral knee arthroplas ty with weakness Plan: No evidence of complicati on. Patient is actually regressed with range of motion since last visit and does admit to being fairly noncomplia nt with stretches and exercises. Will refer back to therapy to address symptoms and strengthen ing as well as range of motion. Follow-up in 1 year or as needed. [id number] MD MORA [facility] [address] [place] [address] 10/27/2023 08:27:33 10/27/2023 09:11:16 Posterior rhinorrhea 24959938 R09.82 Temporoman dibular joint disorder 31281701 M26.609 -10/27/2023 n ormal otoscopic exam; otalgia likely secondary to either TMJ inflammati on from bruxism or from eustachian tube dysfunctio n from her allergic rhinitis with postnasal drainage; will treat with use of both fluticason e and azelastine each twice daily along with auto inflation 20-30 times per day in addition to standard TMJ precaution s with use of extra strength Tylenol twice daily Sensorineu ral hearing loss of bilateral ears 784186268 H90.3 Audiogram (September 2021) = moderate to severe symmetrica l mid and HF SNHL - SRTs of 30 dcB in each ear, 88 % WDS's Dysfunctio n of eustachian tube 48850310 H69.92 -10/27/2023 n ormal otoscopic exam; otalgia likely secondary to either TMJ inflammati on from bruxism or from eustachian tube dysfunctio n from her allergic rhinitis with postnasal drainage; will treat with use of both fluticason e and azelastine each twice daily along with auto inflation 20-30 times per day in addition to standard TMJ precaution s with use of extra strength Tylenol twice daily Neck pain [id number] M54.2 Otalgia of left ear 1010 [id number] H92.02 -10/27/2023 n ormal otoscopic exam; otalgia likely secondary to either TMJ inflammati on from bruxism or from eustachian tube dysfunctio n from her allergic rhinitis with postnasal drainage; will treat with use of both fluticason e and azelastine each twice daily along with auto inflation 20-30 times per day in addition to standard TMJ precaution s with use of extra strength Tylenol twice daily Allergic rhinitis [id number] J30.9 Was on allergy shots for several years 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 but these were discontinu ed a year or 2 ago when she started on a beta-block er for hypertensi on [id number] CHRISTINA NUR APRN RHEUMATOL OGY [address] [place] [address] 01/07/2024 08:25:19 01/08/2024 04:34:47 Pain of bilateral hands [id number] M79.641 M79.642 without synovitis, no dactylitis , no joint effusionsn o skin changes or rashesnorm al skin turgorno swelling, redness, tenderness alonewill assess an arthritis panel Chronic diarrhea [id number] K52.9 she has bouts of colitis and has a grandson with crohns disease [id number] HENRY GÓMEZ PA-C [facility] [address] [place] [address] 02/23/2024 08:38:21 02/23/2024 09:07:26 History of bilateral knee arthroplasty [id number] 208516 Z96.653 Assessment : History of bilateral knee arthroplas ty Ms. Simon continues to do very well. She has no complaints or concerns today. Dental prophylaxi s reviewed today. Continue with NSAIDs/Tyl enol for any residual pain or swelling. Radiograph s obtained today reveal intact TKA implants in good positionin g andalignme nt. Physical exam reveals good ROM without pain and a well-heale d surgical incision.W e reviewed the expected progressio n of recovery and rehabilita tion. At this time,the patient is encouraged to continue all activities of daily living as comfortabl e. The patientsho uld continue maintainin g strength bilateral legs with HEP.Patien t will return to clinic in 3 years or sooner if symptoms warrant.. Health Concerns Section Related Observation LastModified by Organization Detai ls LastModified Time None Recorded Concern Status LastModified by Organization Details LastModified Time None Recorded Advance Directives Directive None Recorded Payers Insurance Date Sequence Insurance Name Policy Number Policy De Anda Covered Member ID De Anda Member ID Guarantor Name 02/24/2024 2 [employer] (MEDICARE SUPPLEMENT) Clement Simon [id number] Clement Simon 09/04/2023 2 AARP (MEDICARE SUPPLEMENT) Clement Simon [id number] Clement Simon 02/20/2024 1 [place] Clement Simon [id number] Clement Simon 03/20/2023 2 AARP (MEDICARE SUPPLEMENT) Clement Simon [id number] Clement Simon Notes Date Note Type Note Provider Name and Address Organization Details Recorded Time 04/15/2022 text/html ROS as noted in the HPI 76-year-old female returns to clinic after updated lumbar MRI and flexion-extension x-rays were ordered for evaluation of worsening left lumbar radiculopathy. Patient states she has had off and on low back and left leg symptoms for a number of years. She's had a left knee replacement about one year ago. She is also had multiple left trochanteric injections without significant long lasting relief. She has been seen by orthopedics recently who actually was referred her to our service for evaluation. She is followed by Dr. gonzalez. It does sound like she may have had lumbar epidural steroid injections at some point. She describes pain starts a low back left buttock and left lateral thigh and lower leg to the foot.She describes it as an aching shooting type pain. She has numbness and tingling in the left foot. She also has numbness on the lateral aspect of her left knee scar which was been present since her left knee arthroplasty. Activity makes it worse. Nothing really makes it better. Denies any right-sided symptoms. No saddle paresthesias or change in bowel bladder control. MASTER FLOWERS PA-C [facility] [place], [address], [facility] 04/15/2022 09:52:48 03/20/2023 text/html 03-20-23Mrmichelle Simon returns for 2 year evaluation of L TKA preformed November 06, 2020. She denies trauma or incident but pain has increased averaging 6/10. Pain occurs when rising from prolonged sitting, flexion. She has increased her walking distance and time and her overall activity in general and is afraid this is causing it. Tylenol 500 mg daily, 650 mg dosage at bedtime has given marginal benefit to pain. 02-22-2216 months S/P L TKA preformed on 11/06/20. Patient denies trauma or recent injury. She experiences stiffness in the mornings, catching when walking. She does voices minimal pain averaging 2/10. She does not take NSAIDs or tylenol. Patient did bring up discussion in regards to a medical concern outside of orthopedics. She does report swelling left side neck. She says that she did see her PCP and was reassured. However, she does report increased shoulder pain and increased swelling of her neck. weeks S/P L TKA-11-06-20. Pain is average 4/10, patient voices bursitis pain and stiffness to knee after prolonged sitting. Patient remains ambulating with cane for her comfort. She is taking meloxicam 7.5 mg daily, patient was unable to get approval from her PCP to increase dosage. She is still active with physical therapy twice weekly. 12-26-20: Patient is 7 weeks s/p L TKA. Pain is improving Currently taking no doses per day of narcotic. Tylenol extra strength t.i.d Ambulating with cane PT: outpatient Denies fevers, chills, or wound drainage.They do not request a refill of pain medicine. Struggling a bit more with pain and stiffness on this side, compared to her previous right TKA. ANITA VEGA PA-C [address] [place], [address], [facility] 03/20/2023 14:21:02 10/27/2023 text/html Clement Simon (78F) visits our office for an evaluation for left otalgia. Recent dental scans performed were normal. She reports pain on her left side from her neck to her ear. 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 She wears hearing aids from [employer], but has been avoiding them since her otalgia issues. Of significance had he does have a history of allergic rhinitis and was on allergy shots for several years 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. These were discontinued because of placement on a beta-rahel for hypertension. MALIK RICO MD [facility] [place], [address], [facility] 10/27/2023 09:26:20 01/07/2024 text/html ROS as noted in the HPI new patient here for initial evaluation and consultation for joint pain; she does have bilateral hand pain; she had chris knee replacements; she has been seeing Dr. Gonzalez with them lasting 3 months; she is here to have assessment of her joint pain; healthy overall; she gets redness and swelling with nsaids and cannot tolerate them; chronic utis and on nitrofurantoin; she has a grandson who has crohns; all others are negative CHRISTINA BOOM, HOLLOW WARE MAKER [address] [place], [address], [facility] 01/27/2024 15:20:01 02/23/2024 text/html 02/23/24Patient is here today for 2.5 year post op visit from L TKA. DOS 11/06/20Patient reports they are doing well.Any pain? NoAmbulating with no assistive deviceAny issues or concerns noIf yes,Denies fevers, chills, or wound drainage. 03-20-23MrsRobert Simon returns for 2 year evaluation of L TKA preformed November 06, 2020. She denies trauma or incident but pain has increased averaging 6/10. Pain occurs when rising from prolonged sitting, flexion. She has increased her walking distance and time and her overall activity in general and is afraid this is causing it. Tylenol 500 mg daily, 650 mg dosage at bedtime has given marginal benefit to pain. 02-22-2216 months S/P L TKA preformed on 11/06/20. Patient denies trauma or recent injury. She experiences stiffness in the mornings, catching when walking. She does voices minimal pain averaging 2/10. She does not take NSAIDs or tylenol. Patient did bring up discussion in regards to a medical concern outside of orthopedics. She does report swelling left side neck. She says that she did see her PCP and was reassured. However, she does report increased shoulder pain and increased swelling of her neck. weeks S/P L TKA-11-06-20. Pain is average 4/10, patient voices bursitis pain and stiffness to knee after prolonged sitting. Patient remains ambulating with cane for her comfort. She is taking meloxicam 7.5 mg daily, patient was unable to get approval from her PCP to increase dosage. She is still active with physical therapy twice weekly. 12-26-20: Patient is 7 weeks s/p L TKA. Pain is improving Currently taking no doses per day of narcotic. Tylenol extra strength t.i.d Ambulating with cane PT: outpatient Denies fevers, chills, or wound drainage.They do not request a refill of pain medicine. Struggling a bit more with pain and stiffness on this side, compared to her previous right TKA. HENRY GÓMEZ PA-C [address] [place], [address], [facility] 02/23/2024 09:09:03 OBGyn Episode No OBEpisode recorded.
--- OUTSIDE RECORDS SUMMARY | 2025-05-19 13:36 | XMS_ITS | Encounter Summary ---
Author Organization [employer] ([place], [place], [place], [place]) Address [address] [place] [address] Care Team Providers Care Costume Seamstress Name Role Phone Matheus Boggs MD Primary Care Provider + [phone] Encounter Details Date Type Department Care Team (Late st Contact Info) Description 01/31/2020 Transcribed Document [facility] Family Medicine [address] [place] [address] ProviderCristopher MD [address] [place], [place] [id number] Social History Tobacco Use Types Packs/Day Years [...] EDU BARNES, PT - 01/31/2020 13:51 EDT [facility] Goals Mobility/Bed Mobility LTG PT Grid Goal [...] 01/31/2020 13:51 EDT Electronically signed by [facility] Conversion Scientist Propagator Cerner at 11/06/2022 1:03 PM CDT documented in this encounter Plan of Treatment Not on file documented as of this encounter Visit Diagnoses Not on filedocumented in this encounter Care Teams Costume Seamstress Relationship Specialty Start Date End Date Matheus Boggs MD [address] [facility] [address] [place] [address] PCP - General Family Medicine 09/05/22 documented as of this encounter
--- OUTSIDE RECORDS SUMMARY | 2025-05-19 13:36 | XMS_ITS | Encounter Summary ---
Author Organization [employer] ([place], [place], [place], [place]) Address [address] [place] [address] Care Team Providers Care Stringed Instrument Tuner Name Role Phone Matheus Boggs MD Primary Care Provider + [phone] Encounter Details Date Type Department Care Team (Late st Contact Info) Description 10/17/2020 Transcribed Document [facility] [place] [facility] [place] [address] ProviderCristopher MD [address] [place] [address] Social History Tobacco Use Types Packs/Day [...] arrive at 1230. She plans to use [facility] PT, as she did for [...] - 10/17/2020 11:08 EDT Electronically signed by [facility] Conversion Wool Fleece Sorter Cerner at 11/06/2022 12:57 PM CDT documented in this encounter Plan of Treatment Not on file documented as of this encounter Visit Diagnoses Not on filedocumented in this encounter Care Teams Stringed Instrument Tuner Relationship Specialty Start Date End Date Matheus Boggs MD [address] [facility] [address] [place] [address] PCP - General Family Medicine 09/05/22 documented as of this encounter
--- OUTSIDE RECORDS SUMMARY | 2025-05-19 13:36 | XMS_ITS | Encounter Summary ---
Author Organization [facility] Address [address] [place] [address] Care Team Providers Care Lingo Cleaner Name Role Phone Devin Mendoza MD Primary Care Provider Matheus Boggs MD Primary Care Provider [phone] Mitchell Oliva MD Unavailable [phone] Encounter Details Date Type Department Care Team (Late st Contact Info) Description 07/29/2013 Orders Only [facility] Physicians - Primary Care, [address] [place] [address] Devin Mendoza MD [address] [place] [address] [place] [address] Social History Tobacco Use Types Packs/Day [...] Procedure Name Priority Date/Time Associated Diagnosis Comments SC ECG ROUTINE ECG W/LEAST 1 2 LDS W/I&R Routine 09/17/2007 documented in this encounter Results * EKG/ELECTROCARDIOGRAM, COMPLETE (09/17/2007) us Devin Mendoza MD SC CARDIOVASCULAR SYSTEM SER VICES Final Result [facility] [address] [place] [address] documented in this encounter Visit Diagnoses Not on filedocumented in this encounter Care Teams Lingo Cleaner Relationship Specialty Start Date End Date Devin Mendoza MD PCP - General 04/29/08 09/13/14 Matheus Boggs MD [address] [place] [address] PCP - General Family Medicine 09/14/14 [place] [address] [place] [address]. [address] [place] [address] General Surgery 07/28/22 documented as of this encounter
--- OUTSIDE RECORDS SUMMARY | 2025-05-19 13:36 | XMS_ITS | Encounter Summary ---
Author Organization [employer] ([place], [place], [place], [place]) Address [address] [place] [address] Care Team Providers Care Steam Finisher Name Role Phone Matheus Boggs MD Primary Care Provider + [phone] Encounter Details Date Type Department Care Team (Late st Contact Info) Description 10/18/2020 Transcribed Document [facility] [place] [facility] [place] [address] ProviderCristopher MD [address] [place] [address] Social History Tobacco Use Types Packs/Day [...] Source : Measured Height Entry Format : [place] Height, Feet : 0 ft(Converted to: 0 cm, 0 Inch) Height, Inches : 60.5 Inch(Converted to: 5 ft 0 Inch, 153.67 cm) Clinical Height : 153.67 cm Weight Source : Standing scale Weight Entry Format : [place] Clinical Dosing Weight : 80.68 kg Weight, Pounds : 177.5 lb Body Surface Area (BSA) : 1.79 m2 Body Mass Index : 34.2 kg/m2 (HI) [place] Body Weight : 46 kg MARY ACEVEDO RN - 10/19/2020 12:12 EDT Health Histories Smoking Status : Never (less than 100 in lifetime; none in last 30 days) Smokeless Tobacco Status : Never Implant/Device Type, Rn Digestive and Model : knee replacement abdominal mesh [...] : Yes Spiritual/Cultural Needs Comment : 10/06 Mu-Ism Preference : Presybeterian (Disciples of [employer]) Spiritual/Cultural Needs Comment : 10/06 Zac Murrieta Rn - 10/18/2020 9:40 EDT [place] Suicide Severity Rating Scale (C-SSRS) CSSRS Past [...] Ambulatory Legal Guardian : Daughter Support Person/Patient Customer Service Coordinator : Yes Support Person/Pt Rep Name : Bibiana White - dtr Support Person/Pt Rep Contact Information : [phone] Bibiana Edmond Family/Rep/Phys Notified of Admit : No Zac Murrieta Rn - 10/18/2020 9:40 EDT Emergency Contact #1 : `Bibiana Christopher Emergency Contact #1 Phone Number : [phone]` Emergency Contact #1 Relationship : daughter` MARY ACEVEOD RN - 10/19/2020 12:12 EDT Emergency Contact #2 : ` Emergency Contact #2 Phone Number : ` Emergency Contact #2 Relationship : ` Information Obtained From : Patient Primary Language : Bahraini Preferred Communication Mode : Verbal Communication Barrier : None Locomotive Operator Needed : No Zac Murrieta Rn - [...] filedocumented in this encounter Care Teams Steam Finisher Relationship Specialty Start Date End Date Spring, Mathues T, MD [address] [place] [facility] [address] [place] [address] PCP - General Family Medicine 09/05/22 documented as of this encounter
--- OUTSIDE RECORDS SUMMARY | 2025-05-19 13:36 | XMS_ITS | Referral Summary ---
Author Organization [employer] ([place], [place], [place], [place]) Address [address] [place] [address] Care Team Providers Care Shipping Agent Name Role Phone Matheus Boggs MD Primary Care Provider [phone] Allergies Active Allergy Reactions Criticality Noted Date Comments Aspirin 10/04/2013 Sulfamethoxazole-Trimethoprim 2014 Codeine Phosphate 10/04/2013 Nsaids (Non-Steroidal Anti-I nflammatory Drug) 10/04/2013 Oxycodone 10/04/2013 Penicillin 10/04/2013 Oxycodone-Aspirin 10/04/2013 Zavdvfk-Pad-Dzc Reductase Inhibitors 10/04/2013 Sulfa (Sulfonamide Antibiotics) 09/18 [...] study. Mild anterior reversibility. EF 81%. [facility] 03/03/2012: Patent coronaries. Mild CAD. EF [...] Date Dakotah rded Speak language other than Macedonian at home Not on file 08/08/2023 Want [...] on file Insurance MEDICARE PART A B [facility] SUPP [facility] CLAIM[facility] Care Teams Shipping Agent Relationship Specialty Start Date End Date Matheus Boggs MD [facility] [address] [place] [address] PCP - General Family Medicine 09/05/22
--- OUTSIDE RECORDS SUMMARY | 2025-05-19 13:36 | XMS_ITS | Encounter Summary ---
Author Organization [employer] ([place], [place], [place], [place]) Address [address] [place] [address] Care Team Providers Care Owner Oral Surgeon Name Role Phone Matheus Boggs MD Primary Care Provider + [phone] Encounter Details Date Type Department Care Team (Late st Contact Info) Description 01/31/2020 Transcribed Document [facility] Radiology [address] [place] [address] Lizz Gonzalez MD [facility] [place] [address] Social History Tobacco Use Types Packs/Day Years [...] : 1945 Associated Diagnoses: None Author: HOLLEYRFAY, PERSONNEL CLERKS SUPERVISOR Chief Complaint R knee pain Review of [...] Medications Documented Arnuity Ellipta: 100 mcg, Inhalation, [id number], PRN: Wheezing, 0 Refill(s) Levoxyl: 125 mcg, Oral, Daily, 0 Refill(s) Singulair: 10 mg, Oral, At Bedtime, 0 Refill(s) Tylenol: 650 mg, Oral, At Bedtime, 0 Refill(s) Ventolin HFA: 2 Puff, Inhalation, Q4H, PRN: as needed for wheezing, 0 Refill(s) acebutolol: 200 mg, Oral, BID, 0 Refill(s) allerlgy shots: 1, SubCutaneous, U6Cppsg, 0 Refill(s) fexofenadine: 180 mg, Oral, Daily, 0 Refill(s) fluticasone 50 mcg/inh nasal spray: 2 [place], Nasal, BID, PRN: Allergies, 16 Gram, 0 Refill(s) hydrOXYzine hydrochloride: 25 mg, Oral, TID, PRN: as needed for anxiety, 0 Refill(s) hydrochlorothiazide-irbesartan 12.5 mg-150 mg oral tablet: 1 Tab, Oral, Daily, 30 Tab, 0 Refill(s) liothyronine: 5 mcg, Oral, Daily, 0 Refill(s) meloxicam: 7.5 mg, Oral, Daily, 0 Refill(s), Home Medications (13) Active acebutolol 200 mg, Oral, BID allerlgy shots 1, SubCutaneous, O2Ppjli Arnuity Ellipta 100 mcg, PRN, Inhalation, O27QFio fexofenadine 180 mg, Oral, Daily fluticasone 50 mcg/inh nasal spray 2 [place], PRN, Nasal, BID hydrochlorothiazide-irbesartan 12.5 mg-150 mg [...] Problems Urinary tract infection / SNOMED CT 710242266 / Confirmed hypo Thyroid disease / SNOMED CT 888504468 / Confirmed Sinusitis / SNOMED CT 43967576 / Confirmed Seasonal allergies / SNOMED CT 5193015064 / Confirmed Renal calculus / SNOMED CT 719213580 / Confirmed Thyroid mass benign / SNOMED CT 4469991193 / Confirmed Irritable bowel syndrome / SNOMED CT 71856377 / Confirmed Incontinence/Frequency / SNOMED CT 34667073 / Confirmed Hyperlipidemia / SNOMED CT 79720071 / Confirmed High blood pressure / SNOMED CT 35410218 / Confirmed Hiatal hernia / SNOMED CT 971848784 / Confirmed Hemorrhoids / SNOMED CT 404470160 / Confirmed Hard of hearing has aides / SNOMED CT 590278877 / Confirmed Shortness of breath / SNOMED CT 858577674 / Confirmed Difficulty swallowing / SNOMED CT 19370831 / Confirmed H/O bilateral Cataract / SNOMED CT 723896932 / Confirmed Cardiac syndrome X / SNOMED CT 243244240 / Confirmed Bursitis / SNOMED CT 472355063 / Confirmed At risk for sleep apnea / IMO 91102790 / Confirmed Asthma / SNOMED CT 447439227 / Confirmed Arthritis osteo / SNOMED CT 5613015 / Confirmed Angina / SNOMED CT 403181107 / Confirmed Allergic rhinitis / SNOMED CT 882445290 / Confirmed, Active Problems (23) Allergic rhinitis [...] Extraocular movements are intact, glasses. HENT: Normocephalic, KAIBAB. Neck: Supple, Non-tender. Respiratory: Lungs are clear to auscultation, Respirations are non-labored. Cardiovascular: Normal rate, Regular rhythm, No murmur, No gallop, No edema. Gastrointestinal: Soft, Non-tender. Genitourinary: No costovertebral angle tenderness. Lymphatics: No lymphadenopathy neck, axilla, groin. Musculoskeletal: painful ROM R knee, RLE weakness, see comprehensive ortho exam in office notes. Integumentary: Warm, Dry, [place]. Neurologic: Alert, Oriented. Psychiatric: Cooperative, Appropriate mood [...] on filedocumented in this encounter Care Teams Owner Oral Surgeon Relationship Specialty Start Date End Date Matheus Boggs MD [address] [place] [facility] [address] [place] [id number] PCP - General Family Medicine 09/05/22 documented as of this encounter
--- OUTSIDE RECORDS SUMMARY | 2025-05-19 13:36 | XMS_ITS | Encounter Summary ---
Author Organization [employer] ([place], [place], [place], [place]) Address [address] [place] [address] Care Team Providers Care Access Analyst Name Role Phone Matheus Boggs MD Primary Care Provider + [phone] Encounter Details Date Type Department Care Team (Late st Contact Info) Description 01/31/2020 Transcribed Document [facility] [facility] [place] [address] ProviderCristopher MD [address] [place] [address] Social History Tobacco Use Types Packs/Day [...] on filedocumented in this encounter Care Teams Access Analyst Relationship Specialty Start Date End Date Matheus Boggs MD [address] [place] [address] [place] [address] PCP - General Family Medicine 09/05/22 documented as of this encounter
--- OUTSIDE RECORDS SUMMARY | 2025-05-19 13:36 | XMS_ITS | Encounter Summary ---
Author Organization [employer] ([place], [place], [place], [place]) Address [address] [place] [address] Care Team Providers Care Customer Care Professional Name Role Phone Matheus Boggs MD Primary Care Provider + [phone] Encounter Details Date Type Department Care Team (Late st Contact Info) Description 02/01/2020 Transcribed Document [facility] [place] [facility] [place] [address] ProviderCristopher MD [address] [place], [place] [phone] Social History Tobacco Use Types Packs/Day Years [...] Insurance 1 Health Plan: MEDICARE Policy Number: [id number] Authorization Number: NPR Insurance 2 Health Plan: AARP N Policy Number: [id number] Authorization Number: NPR Insurance Primary Name : MEDICARE Authorization Number-Primary : NPR for Medicare Authorized Service Begin Date-Primary : 01/31/2020 EDT Historical Authorization Comments-Primary : Comment 1: pt scheduled for OUT PT total knee replacement (Right) on 01-31-2020 Medicare: NPR (JOSH MALIK, Hand Welt Butter 01/28/2020 13:53) Susi Andino, Rn-Utilization Review - 02/01/2020 9:52 EDT Electronically signed by [facility] Conversion Meat Dresser Cerner at 11/06/2022 1:00 PM CDT documented in this encounter Plan of Treatment Not on file documented as of this encounter Visit Diagnoses Not on filedocumented in this encounter Care Teams Customer Care Professional Relationship Specialty Start Date End Date Matheus Boggs MD [address] [facility] [address] [place] [address] PCP - General Family Medicine 09/05/22 documented as of this encounter
--- OUTSIDE RECORDS SUMMARY | 2025-05-19 13:36 | XMS_ITS | Encounter Summary ---
Author Organization [employer] ([place], [place], [place], [place]) Address [address] [place] [address] Care Team Providers Care Survey Operations Director Name Role Phone Matheus Boggs MD Primary Care Provider + [phone] Encounter Details Date Type Department Care Team (Late st Contact Info) Description 02/01/2020 Transcribed Document [facility] [place] [facility] [place] [address] ProviderCristopher MD [address] [place], [place] [id number] Social History Tobacco Use Types Packs/Day Years [...] of Dr. Gonzalez or Dr. Arthur, call [phone] If you are a patient of Dr. German, call [phone] Nurse Navigator: Ivanna Carrasco Office: [phone]; ; available during regular business hours documented in this encounter Plan of Treatment Not on file documented as of this encounter Visit Diagnoses Not on filedocumented in this encounter Care Teams Survey Operations Director Relationship Specialty Start Date End Date Matheus Boggs MD [address] [place] [facility] [address] [place] [address] PCP - General Family Medicine 09/05/22 documented as of this encounter
--- OUTSIDE RECORDS SUMMARY | 2025-05-19 13:36 | XMS_ITS | Encounter Summary ---
Author Organization [employer] ([place], [place], [place], [place]) Address [address] [place] [address] Care Team Providers Care Marble Mechanic Helper Name Role Phone Matheus Boggs MD Primary Care Provider + [phone] Encounter Details Date Type Department Care Team (Late st Contact Info) Description 02/01/2020 Transcribed Document [facility] [place] [facility] [place] [address] ProviderCristopher MD [address] [place], [place] [phone] Social History Tobacco Use Types Packs/Day Years [...] on filedocumented in this encounter Care Teams Marble Mechanic Helper Relationship Specialty Start Date End Date Matheus Boggs MD [address] [facility] [address] [place] [phone] PCP - General Family Medicine 09/05/22 documented as of this encounter
--- OUTSIDE RECORDS SUMMARY | 2025-05-19 13:36 | XMS_ITS | Encounter Summary ---
Author Organization [employer] ([place], [place], [place], [place]) Address [address] [place] [address] Care Team Providers Care Rhinestone Setter Name Role Phone Matheus Boggs MD Primary Care Provider + [phone] Encounter Details Date Type Department Care Team (Late st Contact Info) Description 02/07/2020 Transcribed Document [facility] [place] [address] ProviderCristopher MD [address] [place], [place] [phone] Social History Tobacco Use Types Packs/Day Years [...] DANGELO PA-ORT - 03:30 PM Previously Documented Tapper Shank Patient Stated Goal : No Patient Stated Goal Tere Carrasco RN-Navigator - 02/07/2020 15:21 EDT documented in this encounter Plan of Treatment Not on file documented as of this encounter Visit Diagnoses Not on filedocumented in this encounter Care Teams Rhinestone Setter Relationship Specialty Start Date End Date Matheus Boggs MD [address] [facility] [address] [place] [address] PCP - General Family Medicine 09/05/22 documented as of this encounter
--- OUTSIDE RECORDS SUMMARY | 2025-05-19 13:36 | XMS_ITS | Encounter Summary ---
Author Organization [employer] ([place], [place], [place], [place]) Address [address] [place] [address] Care Team Providers Care Teacher Nursery School Name Role Phone Matheus Boggs MD Primary Care Provider + [phone] Encounter Details Date Type Department Care Team (Late st Contact Info) Description 10/09/2020 Transcribed Document [facility] Family Medicine [facility] [place] [address] ProviderCristopher MD [address] [place] [address] Social History Tobacco Use Types [...] 14:04 EDT by Tere Carrasco RN-Navigator JR. JESYS Knee Survey 1. How severe is your knee stiffness after first wakening in the morning? : Severe 2. Twisting/pivoting on your knee : Moderate 3. Straightening knee fully : Moderate 4. Going up or down stairs : Severe 5. Standing upright : Severe 6. Rising from sitting : Severe 7. Bending to floor/mixing picker tender an object : Moderate JESSY JR Raw [...] Mental Health Score (ref) : 12 Tere Carrasoc RN-Navigator - 11/28/2020 14:04 EDT documented in this encounter Plan of Treatment Not on file documented as of this encounter Visit Diagnoses Not on filedocumented in this encounter Care Teams Teacher Nursery School Relationship Specialty Start Date End Date Matheus Boggs MD [address] [place] [facility] [address] [place] [phone] PCP - General Family Medicine 09/05/22 documented as of this encounter
--- OUTSIDE RECORDS SUMMARY | 2025-05-19 13:37 | XMS_ITS | Encounter Summary ---
Author Organization [employer] ([place], [place], [place], [place]) Address [address] [place] [address] Care Team Providers Care Exerciser Horse Name Role Phone Matheus Boggs MD Primary Care Provider + [phone] Encounter Details Date Type Department Care Team (Late st Contact Info) Description 11/06/2020 Transcribed Document [facility] [place] Family Medicine [facility] [place] [address] ProviderCristopher MD [address] [place] [address] Social History Tobacco Use Types Packs/Day [...] EDU BARNES PT - 11/07/2020 11:58 EDT Fdc Goals Mobility/Bed Mobility LTG PT Grid Goal [...] ROM. Additional Objective Information : No Joint Senior Business Intelligence Analyst present throughout L knee ROM 0-96 degrees [...] the text rendition version of the form. [place] PT Charges PT Therap. Exercise 15 min : 1 Gait Training Each 15 Min : 1 EDU BARNES, PT - 11/07/2020 11:58 EDT Electronically signed by [facility], [facility] Conversion Wilton Weaver Cerner at 11/06/2022 12:57 PM CDT documented in this encounter Plan of Treatment Not on file documented as of this encounter Visit Diagnoses Not on filedocumented in this encounter Care Teams Exerciser Horse Relationship Specialty Start Date End Date Matheus Boggs MD [address] [facility] [address] [place] [phone] PCP - General Family Medicine 09/05/22 documented as of this encounter
--- OUTSIDE RECORDS SUMMARY | 2025-05-19 13:37 | XMS_ITS | Encounter Summary ---
Author Organization [employer] ([place], [place], [place], [place]) Address [address] [place] [address] Care Team Providers Care Clothing Designer Name Role Phone Matheus Boggs MD Primary Care Provider + [phone] Encounter Details Date Type Department Care Team (Late st Contact Info) Description 11/06/2020 Transcribed Document [facility] [place] Family [place] [address] ProviderCristopher MD [address] [place] [address] Social History Tobacco Use Types Packs/Day [...] the form. Electronically signed by Kee [facility] Conversion Corporate Administrative Assistant Cerner at 11/06/2022 1:12 PM CDT documented in this encounter Plan of Treatment Not on file documented as of this encounter Visit Diagnoses Not on filedocumented in this encounter Care Teams Clothing Designer Relationship Specialty Start Date End Date Matheus Boggs MD 1210 [facility] [address] [place] [phone] PCP - General Family Medicine 09/05/22 documented as of this encounter
--- OUTSIDE RECORDS SUMMARY | 2025-05-19 13:37 | XMS_ITS | Encounter Summary ---
Author Organization [employer] ([place], [place], [place], [place]) Address [address] [place] [address] Care Team Providers Care Desktop Support Technician Name Role Phone Matheus Boggs MD Primary Care Provider + [phone] Encounter Details Date Type Department Care Team (Late st Contact Info) Description 11/06/2020 Transcribed Document [facility] [place] Family Medicine [facility] [address] ProviderCristopher MD [address] [place] [address] Social History Tobacco Use Types Packs/Day [...] HANNAH PEREZ OTR/L - 11/07/2020 11:41 EDT Talent Sourcer Goals, OT Bathing LTG Grid Goal #1 [...] in this encounter Care Teams Desktop Support Technician Relationship Specialty Start Date End Date Matheus Boggs MD [address] [place] [facility] [address] [place] [address] PCP - General Family Medicine 09/05/22 documented as of this encounter
--- OUTSIDE RECORDS SUMMARY | 2025-05-19 13:37 | XMS_ITS | Encounter Summary ---
Author Organization [employer] ([place], [place], [place], [place]) Address [address] [place] [address] Care Team Providers Care Radiation Physicist Name Role Phone Matheus Boggs MD Primary Care Provider + [phone] Encounter Details Date Type Department Care Team (Late st Contact Info) Description 01/31/2020 Transcribed Document [facility] Radiology [address] [place] [phone] Chris Keyes MD [address] [place] [address] Social History Tobacco Use Types Packs/Day Years [...] is a 74 yo female admitted to [facility] per Dr. Gonzalez for a right total knee arthroplasty. Preoperatively patient was found to have advanced osteoarthritis of the right knee and elected surgical intervention after failing conservative treatment. Patient is followed perioperatively while hospitalized for medical management. Initial visit on floor - Denies prior stroke or seizure. Denies [place], CHF or cardiac arrhythmia. Denies DM. Denies [...] mg, Oral, BID allerlgy shots 1, SubCutaneous, [id number] Arnuity Ellipta 100 mcg, PRN, Inhalation, [id number] fexofenadine 180 mg, Oral, Daily fluticasone 50 mcg/inh nasal spray 2 [place], PRN, Nasal, BID hydrochlorothiazide-irbesartan 12.5 mg-150 mg [...] ms QTC Calculation(Bezet) : 420 ms P Belvue : 16 degrees R Belvue : -6 degrees T Belvue : 25 degrees Sinus bradycardia Cannot rule out Anterior infarct (cited on or before 13-JAN-2020) Abnormal ECG When compared with ECG of 13-JAN-2020 10:53, No significant change was found Confirmed by JKAUB ORTIZ M.D. ([id number]), general expeditor LILIAN BENÍTEZ ([id number]) on 01/13/2020 3:58:46 PM [...] on filedocumented in this encounter Care Teams Radiation Physicist Relationship Specialty Start Date End Date Matheus Boggs MD [address] [place] [facility] [address] [place] [phone] PCP - General Family Medicine 09/05/22 documented as of this encounter
--- OUTSIDE RECORDS SUMMARY | 2025-05-19 13:37 | XMS_ITS | Encounter Summary ---
Author Organization [employer] ([place], [place], [place], [place]) Address [address] [place] [address] Care Team Providers Care Aerial Photograph Interpreter Name Role Phone Matheus Boggs MD Primary Care Provider + [phone] Encounter Details Date Type Department Care Team (Late st Contact Info) Description 11/06/2020 Transcribed Document [facility] [place] [facility] [place] [address] ProviderCristopher MD [address] [place] [address] Social History Tobacco Use Types Packs/Day [...] HANNAH PEREZ OTR/[place]arianela - 11/06/2020 14:32 EDT Senior Care Goals, OT Bathing LTG Grid Goal #1 [...] 11/06/2020 14:32 EDT Electronically signed by Kee [facility] Conversion Associate Professor Plant Pathology Cerner at 11/06/2022 1:10 PM CDT documented in this encounter Plan of Treatment Not on file documented as of this encounter Visit Diagnoses Not on filedocumented in this encounter Care Teams Aerial Photograph Interpreter Relationship Specialty Start Date End Date Matheus Boggs MD [address] [place] [facility] [address] [place] [phone] PCP - General Family Medicine 09/05/22 documented as of this encounter
--- OUTSIDE RECORDS SUMMARY | 2025-05-19 13:37 | XMS_ITS | Encounter Summary ---
Author Organization [employer] ([place], [place], [place], [place]) Address [address] [place] [address] Care Team Providers Care Pullman Clerk Name Role Phone Matheus Boggs MD Primary Care Provider + [phone] Encounter Details Date Type Department Care Team (Late st Contact Info) Description 01/28/[address] [facility] [place] [address] [place] [address] ProviderCristopher MD [address] [place] [address] Social History Tobacco Use Types [...] On: 01/28/2020 13:53 EDT by JOSH MALIK, Training Technician Primary Insurance Authorization Authorization and Policy Numbers : Insurance 1 Health Plan: MEDICARE Policy Number: [id number] Authorization Number: NPR Insurance 2 Health Plan: AARP N Policy Number: [id number] Authorization Number: NPR Insurance Primary Name : [facility] Authorization Number-Primary : NPR for Medicare Authorized Service Begin Date-Primary : 01/31/2020 EDT Authorization Comments-Primary : pt scheduled for OUT PT total knee replacement (Right) on 01-31-2020 Medicare: NPR Historical Authorization Comments-Primary : No Authorization Comments Found JOSH MALIK, Training Technician - 01/28/2020 13:53 EDT Electronically signed by [facility], [facility] Conversion Wood Fence Erector Cerner at 11/06/2022 12:59 PM CDT documented in this encounter Plan of Treatment Not on file documented as of this encounter Visit Diagnoses Not on filedocumented in this encounter Care Teams Pullman Clerk Relationship Specialty Start Date End Date Matheus Boggs MD 1210 [facility] [address] [place] [phone] PCP - General Family Medicine 09/05/22 documented as of this encounter
--- OUTSIDE RECORDS SUMMARY | 2025-05-19 13:37 | XMS_ITS | Encounter Summary ---
Author Organization [employer] ([place], [place], [place], [place]) Address [address] [place] [address] Care Team Providers Care Whirley Operator Name Role Phone Matheus Boggs MD Primary Care Provider + [phone] Encounter Details Date Type Department Care Team (Late st Contact Info) Description 11/06/2020 Transcribed Document [address] [phone] Chris Keyes MD [address] [place] [address] Social History Tobacco Use Types Packs/Day Years [...] is a 75 yo female admitted to [facility] per Dr. Gonzalez for a left total [...] her. Denies prior stroke or seizure. Denies [place], CHF or cardiac arrhythmia. Denies DM. Denies [...] Daily Arnuity Ellipta 100 mcg, PRN, Inhalation, [id number] fexofenadine 180 mg, Oral, Daily fluticasone 50 mcg/inh nasal spray 2 [place], PRN, Nasal, BID hydrochlorothiazide-irbesartan 12.5 mg-150 mg [...] on filedocumented in this encounter Care Teams Whirley Operator Relationship Specialty Start Date End Date Matheus Boggs MD [address] [place] [facility] [address] [place] [address] PCP - General Family Medicine 09/05/22 documented as of this encounter
--- OUTSIDE RECORDS SUMMARY | 2025-05-19 13:37 | XMS_ITS | Encounter Summary ---
Author Organization [employer] ([place], [place], [place], [place]) Address [address] [place] [address] Care Team Providers Care Potato Spotter Name Role Phone Matheus Boggs MD Primary Care Provider + [phone] Encounter Details Date Type Department Care Team (Late st Contact Info) Description 11/06/2020 Transcribed Document [facility] [place] [address] ProviderCristopher MD [address] [place] [address] Social History Tobacco Use Types Packs/Day [...] Cristopher ProviderMD - 11/06/2020 10:20 AM CDT [facility] Main OR Preop Summary Primary Physician: DEAN ALVA MD-ORT Finalized Date/Time: 11/06/20 14:39:17 Pt. Name: MARY WALKER D.O.B./Sex: 1945 Female Med Rec #: [id number] Physician: DEAN ALVA MD-ORT Financial #: [id number] Pt. Type: O Room/Bed: 637/1 Admit/Disch: 11/06/20 06:53:00 - Institution: [facility] PreOp Case Times Entry 1 In Preop 11/06/20 07:39:00 Ready for Holding n/a Room Patient Ready for 11/06/20 09:13:00 Surgery Patient Out of Preop 11/06/20 09:46:00 Patient Out of n/a Holding Room Last Modified By: PARIS LOMBARDI RN 11/06/20 14:39:12 [facility] PreOp Case Times Audit 11/06/20 14:39:12 Senior Biostatistician/Group Leader: MICAELA Modifier: MARIA ANTONIA <+> 1 Patient Out of Preop Finalized By: PARIS LOMBARDI RN Document Signatures Signed By: PARIS LOMBARDI RN 11/06/20 14:39 Electronically signed by Kee [facility] Conversion Numerical Control Router Operator Cerner at 11/06/2022 1:07 PM CDT documented in this encounter Plan of Treatment Not on file documented as of this encounter Visit Diagnoses Not on filedocumented in this encounter Care Teams Potato Spotter Relationship Specialty Start Date End Date Matheus Boggs MD [address] [place] [facility] [address] [place] [phone] PCP - General Family Medicine 09/05/22 documented as of this encounter
--- OUTSIDE RECORDS SUMMARY | 2025-05-19 13:37 | XMS_ITS | Clinical Summary ---
Author Organization [employer]UC[employer] OD Address [address] [facility] [place] [address] Phone Care Team Providers Care Terrazzo Mechanic Name Role Phone Matheus Boggs MD Primary Care Provider + [phone] Social History Tobacco Use Types Packs/Day Years [...] 1-d ose 75+ series) 2020 COVID-19 Vaccine ( - 2024-2 6 season) 2025 Influenza Vaccine (#1) 2025 Hepatitis B Vaccine Aged Out No longe r eligible based on patient's age to complete this topic Meningococcal B Vaccine Aged Out No l onger eligible based on patient's age to complete this topic Insurance MEDICARE [place] PART A AND B AARP SUPPLEMENTAL Care Teams Terrazzo Mechanic Relationship Specialty Start Date End Date Matheus Boggs MD [address] [place] [address] [place] [phone] PCP - General Family Medicine 12/02/16
--- OUTSIDE RECORDS SUMMARY | 2025-05-19 13:37 | XMS_ITS | Encounter Summary ---
Author Organization [employer] ([place], [place], [place], [place]) Address [address] [place] [address] Care Team Providers Care Testing Tech Name Role Phone Matheus Boggs MD Primary Care Provider + [phone] Encounter Details Date Type Department Care Team (Late st Contact Info) Description 02/07/2020 Transcribed Document [facility] [place] Medicine [address] [place] [address] ProviderCristopher MD [address] [place], [place] [phone] Social History Tobacco Use Types Packs/Day Years [...] patient called-no home health yet. I called [facility], they accepted referral, it was confirmed, but they were waiting on an order. Referral and order resent. Attempted to reach patient, no answer. Tere Carrasco RN-Navigator - 02/07/2020 15:20 EDT documented in this encounter Plan of Treatment Not on file documented as of this encounter Visit Diagnoses Not on filedocumented in this encounter Care Teams Testing Tech Relationship Specialty Start Date End Date Matheus Boggs MD 1210 [facility] [address] [facility] [place] [address] PCP - General Family Medicine 09/05/22 documented as of this encounter
--- OUTSIDE RECORDS SUMMARY | 2025-05-19 13:37 | XMS_ITS | Encounter Summary ---
Author Organization [employer] ([place], [place], [place], [place]) Address [address] [place] [address] Care Team Providers Care Photocopying Equipment Repairer Name Role Phone Matheus Boggs MD Primary Care Provider + [phone] Encounter Details Date Type Department Care Team (Late st Contact Info) Description 11/06/2020 Transcribed Document [facility] [place] [facility] [place] [address] ProviderCristopher MD [address] [place] [address] Social History Tobacco Use Types Packs/Day [...] EDU BARNES, PT - 11/06/2020 14:22 EDT Senior Care Goals Mobility/Bed Mobility LTG PT Grid Goal [...] on filedocumented in this encounter Care Teams Photocopying Equipment Repairer Relationship Specialty Start Date End Date Matheus Boggs MD 1210 [facility] [address] [place] [phone] PCP - General Family Medicine 09/05/22 documented as of this encounter
--- OUTSIDE RECORDS SUMMARY | 2025-05-19 13:37 | XMS_ITS | Encounter Summary ---
Author Organization [employer] ([place], [place], [place], [place]) Address [address] [place] [address] Care Team Providers Care Log Preparer Name Role Phone Matheus Boggs MD Primary Care Provider + [phone] Encounter Details Date Type Department Care Team (Late st Contact Info) Description 11/06/2020 Transcribed Document [facility] [place] [facility] [place] [address] ProviderCristopher MD [address] [place] [address] Social History Tobacco Use Types Packs/Day [...] : Yes Joint AcademyType : Online Joint Spot Machine Operator Name : daughters: Genesis Aponte Sherry Type of Surgery : Total Knee Replacement, Left Does Patient Have a Walker? : Yes Anticipated Discharge Plan : Home Health PT Anticipated Discharge Plan Comment : Patient plans to d/c home tomorrow with the help of her daughters. She would like to use [facility] for home PT. A pre-referral was sent [...] on filedocumented in this encounter Care Teams Log Preparer Relationship Specialty Start Date End Date Matheus Boggs MD [address] [facility] [address] [place] [phone] PCP - General Family Medicine 09/05/22 documented as of this encounter
--- OUTSIDE RECORDS SUMMARY | 2025-05-19 13:37 | XMS_ITS | Encounter Summary ---
Author Organization [employer] ([place], [place], [place], [place]) Address [address] [place] [address] Care Team Providers Care Furniture Upholsterer Apprentice Name Role Phone Matheus Boggs MD Primary Care Provider + [phone] Encounter Details Date Type Department Care Team (Late st Contact Info) Description 11/06/2020 Transcribed Document [facility] [place] [facility] [address] ProviderCristopher MD [address] [place] [address] Social History Tobacco Use Types Packs/Day [...] Cristopher ProviderMD - 11/06/2020 10:20 AM CDT [facility] Main OR PACU Summary Primary Physician: DEAN ALVA MD-ORT Finalized Date/Time: 11/06/20 12:55:13 Pt. Name: MARY WALKER D.O.B./Sex: 1945 Female Med Rec #: [id number] Physician: DEAN ALVA MD-ORT Financial #: [id number] Pt. Type: O Room/Bed: [facility]/ Admit/Disch: 11/06/20 06:53:00 - Institution: [facility] OR PACU I Case Times Entry 1 In PACU I 11/06/20 11:38:00 Ready for PACU 11/06/20 12:38:00 Discharge Discharge from PACU 11/06/20 12:38:00 I Last Modified By: Michelle Chawla Rn 11/06/20 12:52:56 Finalized By: Michelle Chawla, Rn Document Signatures Signed By: Michelle Chawla Rn 11/06/20 12:55 Electronically signed by Kee [facility] Conversion Hide Mill Worker Cerner at 11/06/2022 1:11 PM CDT documented in this encounter Plan of Treatment Not on file documented as of this encounter Visit Diagnoses Not on filedocumented in this encounter Care Teams Furniture Upholsterer Apprentice Relationship Specialty Start Date End Date Matheus Boggs MD 1210 [facility] [address] [place] [phone] PCP - General Family Medicine 09/05/22 documented as of this encounter
--- OUTSIDE RECORDS SUMMARY | 2025-05-19 13:37 | XMS_ITS | Encounter Summary ---
Author Organization [employer] ([place], [place], [place], [place]) Address [address] [place] [address] Care Team Providers Care Sanitary Engineering Teacher Name Role Phone Matheus Boggs MD Primary Care Provider + [phone] Encounter Details Date Type Department Care Team (Late st Contact Info) Description 02/01/2020 Transcribed Document [facility] Radiology [address] [place] [phone] Chris Keyes MD [address] [place] [address] Social History Tobacco Use Types Packs/Day Years [...] is a 74 yo female admitted to [facility] per Dr. Gonzalez for a right total knee arthroplasty. Preoperatively patient was found to have advanced osteoarthritis of the right knee and elected surgical intervention after failing conservative treatment. Patient is followed perioperatively while hospitalized for medical management. Initial visit on floor - Denies prior stroke or seizure. Denies MD, CHF or cardiac arrhythmia. Denies DM. Denies [...] mg, Oral, BID allerlgy shots 1, SubCutaneous, N8Crhso Arnuity Ellipta 100 mcg, PRN, Inhalation, W06TJap aspirin 81 mg oral tablet 81 mg = 1 Tab, Oral, BID Colace 100 mg oral capsule 100 mg = 1 Cap, PRN, Oral, BID ferrous gluconate 324 mg (37.5 mg elemental iron) oral tablet 324 mg = 1 Tab, Oral, Daily fexofenadine 180 mg, Oral, Daily fluticasone 50 mcg/inh nasal spray 2 [place], PRN, Nasal, BID hydrochlorothiazide-irbesartan 12.5 mg-150 mg [...] mg/dL 02/01/2020 04:53 Glucose Level 148 mg/dL IA 02/01/2020 04:53 Calcium Level 8.4 mg/dL 02/01/2020 04:53 Creatinine Level 0.70 mg/dL 02/01/2020 04:53 Cardiac Markers (Current Encounter/Past 24 Hours) No Cardiac Marker Results Found (Past 24 Hours) CBC Results (Current Encounter/Past 24 Hours) WBC 11.5 K/uL IA 02/01/2020 04:28 Hct 37.7 % 02/01/2020 04:28 [...] mg/dL 02/01/2020 04:53 Glucose Level 148 mg/dL IA 02/01/2020 04:53 Calcium Level 8.4 mg/dL 02/01/2020 [...] ms QTC Calculation(Bezet) : 420 ms P Spring : 16 degrees R Spring : -6 degrees T Spring : 25 degrees Sinus bradycardia Cannot rule out Anterior infarct (cited on or before 13-JAN-2020) Abnormal ECG When compared with ECG of 13-JAN-2020 10:53, No significant change was found Confirmed by JAKUB ORTIZ M.D. ([id number]), editor newspaper LILIAN BENÍTEZ ([id number]) on 01/13/2020 3:58:46 PM [...] on filedocumented in this encounter Care Teams Sanitary Engineering Teacher Relationship Specialty Start Date End Date Matheus Boggs MD [address] [place] [facility] [address] [place] [phone] PCP - General Family Medicine 09/05/22 documented as of this encounter
--- OUTSIDE RECORDS SUMMARY | 2025-05-19 13:37 | XMS_ITS | Encounter Summary ---
Author Organization [employer] ([place], [place], [place], [place]) Address [address] [place] [address] Care Team Providers Care Fire Extinguisher Tester Name Role Phone Matheus Boggs MD Primary Care Provider + [phone] Encounter Details Date Type Department Care Team (Late st Contact Info) Description 01/31/2020 Transcribed Document [facility] [place] [facility] [place] [address] ProviderCristopher MD [address] [place] [address] Social History Tobacco Use Types Packs/Day [...] MARY WALKER/Sex: 1945 Female Med Rec #: [id number] Physician: DEAN ALVA MD-ORT Financial #: [id number] Pt. Type: O Room/Bed: /9 Admit/Disch: 01/31/20 06:33:00 - Institution: [facility] PreOp Case Times Entry 1 In Preop 01/31/20 07:02:00 Ready for Holding n/a Room Patient Ready for 01/31/20 08:41:00 Surgery Patient Out of Preop 01/31/20 10:00:00 Patient Out of n/a Holding Room Last Modified By: Tamar Casiano, Nurse Mold Cleaner 01/31/20 12:01:45 [facility] PreOp Case Times Audit 01/31/20 12:01:45 Mandrel Press Hand: ANTONIO Modifier: [id number] <+> 1 Patient Out of Preop 01/31/20 08:41:48 Mandrel Press Hand: [email or web address] Modifier: [email or web address] <+> 1 Patient Ready for Surgery Finalized By: Tamar Casiano, Nurse Car Cleaner Signatures Signed By: Tamar Casiano Nurse 01/31/20 12:01 Electronically signed by Kee [facility] Conversion Roving Technician Cerner at 11/06/2022 12:49 PM CDT documented in this encounter Plan of Treatment Not on file documented as of this encounter Visit Diagnoses Not on filedocumented in this encounter Care Teams Fire Extinguisher Tester Relationship Specialty Start Date End Date Matheus Boggs MD [address] [facility] [address] [place] [phone] PCP - General Family Medicine 09/05/22 documented as of this encounter
--- OUTSIDE RECORDS SUMMARY | 2025-05-19 13:37 | XMS_ITS | Clinical Summary ---
Author Organization [facility] Address [address] [place] [address] Care Team Providers Care Secondary Set Up Man Name Role Phone Unavailable Primary Care Provider [...]
--- OUTSIDE RECORDS SUMMARY | 2025-05-19 13:37 | XMS_ITS | Encounter Summary ---
Author Organization [employer] ([place], [place], [place], [place]) Address [address] [place] [address] Care Team Providers Care Play Reader Name Role Phone Matheus Boggs MD Primary Care Provider + [phone] Encounter Details Date Type Department Care Team (Late st Contact Info) Description 11/06/2020 Transcribed Document [facility] [place] [place] [address] ProviderCristopher MD [address] [place] [address] Social History Tobacco Use Types Packs/Day [...] Cristopher ProviderMD - 11/06/2020 10:20 AM CDT [facility] Main OR IntraOp Summary Primary Physician: DEAN ALVA MD-MARIANELA Finalized Date/Time: 11/07/20 10:33:31 Pt. Name: MELISSA SIMON D.O.B./Sex: 1945 Female Med Rec #: [id number] Physician: DEAN ALVA MD-ORT Financial #: [id number] Pt. Type: O Room/Bed: [facility] Admit/Disch: 11/06/20 06:53:00 - Institution: [facility] IntraOp Case Attendance Entry 1 Entry 2 Entry 3 Case Attendee DEAN ALVA, JORGE A MUÑIZ MD-MARGA ESTES MD-ORMarycarmen BLOCKER AND POLISHER GOLD WHEEL, [employer] SALES REPRESENTATIVE Role Performed Surgeon/Proceduralist, Anesthesiologist of [employer] SALES REPRESENTATIVE/Nurse Tyre Fitter First Record Time In 11/06/20 09:48:00 11/06/20 [...] ANITA MEJÍA, Warren Robles, Surgical OTHER, ATTENDEE Planning Associate Role Performed Child Caregiver, First Scrub, First Scrub, Second Time In 11/06/20 09:48:00 11/06/20 09:48:00 11/06/20 09:48:00 Time Out 11/06/20 11:34:00 11/06/20 11:34:00 11/06/20 11:34:00 Procedure Knee Total Joint Knee Total Joint Knee Total Joint Replacement(Left) Replacement(Left) Replacement(Left) Other Attendee Kenneth Ribera - [facility] Superficial Wound Closed By: Last Modified By: Kanwal Tolbert Rn Moore, Kimberly A, Rn Moore, Kimberly A, Rn 11/06/20 12:08:10 11/06/20 12:08:10 11/06/20 12:08:10 Entry 7 Entry 8 Entry 9 Case Attendee Jamshid Whitney I, Kanwal Esparza Rn OTHER, ATTENDEE #1 Role Performed Offset Press Operator Apprentice, First Offset Press Operator Apprentice, Second Vendor Time In 11/06/20 09:48:00 11/06/20 09:48:00 11/06/20 09:48:00 Time Out 11/06/20 11:34:00 11/06/20 11:34:00 11/06/20 11:34:00 Procedure Knee Total Joint Knee Total Joint Knee Total Joint Replacement(Left) Replacement(Left) Replacement(Left) Other Attendee orientee Joao Jason Superficial Wound Closed By: Last Modified By: Kanwal Tolbert, Kanwal Esparza Rn Moore, Kimberly A, Rn 11/06/20 12:08:10 11/06/20 12:08:10 11/06/20 12:08:10 [facility] IntraOp Case Attendance Audit 11/06/20 12:08:10 Tungsten Refiner: [id number] Modifier: [id number] 1 <+> Time Out 1 <*> Procedure [...] Procedure Knee Total Joint Replacement(Left) 11/06/20 10:57:55 Tungsten Refiner: [id number] Modifier: [id number] <+> 9 Case Attendee <+> 9 Role Performed <+> 9 Time In <+> 9 Procedure <+> 9 Other Attendee 11/06/20 10:28:37 Tungsten Refiner: [id number] Modifier: [id number] <+> 1 Time In <+> 1 Procedure [...] 8 <*> Procedure Knee Total Joint Replacement(Left) [facility] IntraOp Case Times Entry 1 Patient In Room Time 11/06/20 09:48:00 Out Room Time 11/06/20 11:34:00 Anesthesia Start Time 11/06/20 09:48:00 Stop Time 11/06/20 11:34:00 Surgery / Procedure Times Start Time 11/06/20 10:20:00 Stop Time 11/06/20 11:31:00 Last Modified By: Kanwal Tolbert Rn 11/06/20 12:08:08 [facility] IntraOp Case Times Audit 11/06/20 12:08:08 Tungsten Refiner: [id number] Modifier: [id number] <+> 1 Out Room Time <+> 1 Stop Time <+> 1 Stop Time 11/06/20 10:29:31 Tungsten Refiner: [id number] Modifier: [id number] <+> 1 Start Time [facility] IntraOp Cautery Entry 1 ESU Identification Cautery Type Monopolar ESU ID Number [id number] ID Type Hospital Number Cautery Settings Cut Setting 50 Coag Setting 50 ESU Grounding Pad Ground Pad Type Adult Grounding Pad Site Right Lower Abdomen Grounding Pad Jamshid Whitney RN Applied By Grounding Pad Site Warm, Dry, Intact Skin Condition Before Cautery Grounding Pad Site Unchanged Skin Condition After Cautery Last Modified By: Jamshid Whitney RN 11/06/20 10:01:36 [facility] IntraOp Communication Entry 1 Communication To Family/Significant other Comment start Communication By Jamshid Whitney RN Date and Time 11/06/20 10:22:00 Last Modified By: Jamshid Whitney RN 11/06/20 10:22:53 [facility] IntraOp Counts Verification Entry 1 Procedure Knee Total Joint Replacement(Left) Count Info Count Type Sponge, Sharps, Miscellaneous Counts Verification Baseline/pre-procedure Sequence Count Results Not Applicable Counts Performed By Count Performed By Warren Morris, Surgical (Scrub) Planning Associate Count Performed By Kanwal Tolbert Rn (RN) Last Modified By: Jamshid Whitney RN 11/06/20 10:00:23 [facility] IntraOp Counts Final Entry 1 Procedure Knee Total Joint Replacement(Left) Final Count Info Count Type Sponge, Sharps, Miscellaneous Counts Verification Skin Closure/end of Sequence procedure Count Results Correct, surgeon notified Counts Performed By Count Performed By OTHER, ATTENDEE (Scrub) Count Performed By Jamshid Whitney I RN (RN) Last Modified By: Jamshid Whitney RN 11/06/20 11:16:01 [facility] IntraOp Counts Final Audit 11/06/20 11:16:01 Tungsten Refiner: [id number] Modifier: [id number] 1 <*> Procedure Knee Total Joint Replacement(Left) 11/06/20 11:15:55 Tungsten Refiner: [id number] Modifier: [id number] 1 <*> Procedure Knee Total Joint Replacement(Left) 1 <+> Count Performed By (Scrub) 1 <+> Count Performed By (RN) [facility] IntraOp Cultures and Spec Summary Entry 1 Cultrures and Specimens Specimen Ordered: Yes Test(s) Routine/Path-Lab Requested/Final Disposition Last Modified By: Jamshid Whitney RN 11/06/20 10:25:46 General Comments: SPECIMEN: A. left knee bone and tissue [facility] IntraOp Departure from OR Entry 1 Integumentary Assessment Integumentary WDL Assessment WDL Transfer/Handoff Transfer to PACU Phase I Handoff Method Phone call Post-op Transport Bed (including Via specialty) Patient Transport DORETHAWMARGA ALICEA, Accompanied by ANGELA COBIAN Last Modified By: Jamshid Whitney RN 11/06/20 10:23:32 [facility] IntraOp Dressing and Packing Entry 1 Type Dressing Location OPERATIVE KNEE Wound Dressing Item Occlusive dressing, Skin Closure Glue Other Comments [facility] [facility] Last Modified By: Jamshid Whitney RN 11/06/20 11:15:24 [facility] IntraOp Fire Risk Assessment Entry 1 Fire Info Surgical Site or 0- No Incision Above the Xyphoid Open O2 Source 0- No (Mask or Cannula) Available Ignition 1- Yes (ESU, Laser, Light Source) Fire Risk 1 Assessment Score Fire Score Fire Risk Yes Assessment Complete Fire Risk Jamshid Whitney I garage worker Verified By Fire Risk 11/06/20 10:20:00 Assessment Verified Date/Time Fire Risk Standard Fire Yes Safety Precautions Followed Last Modified By: Jamshid Whitney RN 11/06/20 10:25:55 [facility] IntraOp General Case Absorber Operator 1 Case Information OR OR 05 [facility] Case Level 1 Room Verified Yes Wound Class I - Clean Specialty Orthopedic Anesthesia Type General ASA Class 2 Diagnosis Preop Diagnosis osteoarthritis left knee Postop Same As Preop No Postop Diagnosis see MD postop notes Last Modified By: Jamshid Whitney RN 11/06/20 10:28:06 [facility] IntraOp Implant Log Entry 1 Entry 2 Entry 3 Type Implant (Synthetic) Implant (Synthetic) Implant (Synthetic) Implant Log Implant Type Bone Cement Hardware Hardware Tissue Implant Type Implant CEMENT BONE SMPLX PSN ASF MC 10MM VE L PATELLA CEMENTED Identification [id number] Description Implant Quantity 2 1 1 Implant Site left knee left knee left knee Implant Identification Model Number Implant Identification Serial Number Implant [id number] Identification Lot Number Implant Rayne:Douglas Eren:Eren Us Eren:Eren Identification Orthopaedics Blasting Cap Assembler Name: Implant [id number] Identification Catalog Number Implant Size Implant Has an Yes Yes Yes Expiration Date Implant Expiration 10/18/21 06/03/25 08/26/28 Date Wasted Radioactive Material Time Implanted Tissue Implant Continue for Tissue Implant Documentation Tissue Identification Number Graft Prep Per Blasting Cap Assembler Instructions: Tissue Preparation Method: Reconstitution Solution: Reconstitution Solution Lot Number Reconstitution Solution Expiration Date: Thawing Solution Thawing Solution Lot Number Thawing Solution Expiration Date Preparation Materials, Other Preparation Materials, Other Lot Number Preparation Materials, Other Expiration Date Tissue Prepared/Processed By Blasting Cap Assembler Paperwork Completed Implant Type Comment Last Modified By: Jamshid Whitney RN Kesten, Robert I, RN Kesten, Robert I, RN 11/06/20 11:01:45 11/06/20 11:01:45 11/06/20 11:01:45 Entry 4 Entry 5 Type Implant (Synthetic) Implant (Synthetic) Implant Log Implant Type Hardware Hardware Tissue Implant Type Implant FEM CEMENTED NARROW SZ TIB STEM NATURAL L Identification [id number] Description Implant Quantity 1 1 Implant Site left knee left knee Implant Identification Model Number Implant Identification Serial Number Implant Identification Lot Number Implant Eren:Eren Us Eren:Eren Us Identification Blasting Cap Assembler Name: Implant [id number] Identification Catalog Number Implant Size Implant Has an Yes Yes Expiration Date Implant Expiration 05/08/30 06/12/30 Date Wasted Radioactive Material Time Implanted Tissue Implant Continue for Tissue Implant Documentation Tissue Identification Number Graft Prep Per Blasting Cap Assembler Instructions: Tissue Preparation Method: Reconstitution Solution: Reconstitution Solution Lot Number Reconstitution Solution Expiration Date: Thawing Solution Thawing Solution Lot Number Thawing Solution Expiration Date Preparation Materials, Other Preparation Materials, Other Lot Number Preparation Materials, Other Expiration Date Tissue Prepared/Processed By Blasting Cap Assembler Paperwork Completed Implant Type Comment Last Modified By: Jamshid Whitney RN Kesten, Robert I, RN 11/06/20 11:01:45 11/06/20 11:01:45 [facility] IntraOp Intraoperative Assessment Entry 1 Handoff Method [...] Modified By: Jamshid Whitney RN 11/06/20 10:29:47 [facility] IntraOp Intraoperative Assessment Audit 11/06/20 10:29:47 Tungsten Refiner: [id number] Modifier: [id number] 1 <+> Patient is Latex Sensitive 1 <+> Isolation Precautions Noted 1 <*> Skin Assessment Verified Yes [facility] IntraOp Intraoperative Equipment Entry 1 Entry 2 Type Equipment Equipment Equipment Equipment Darleen Suction System Darleen Suction System ID Number [id number] Setting Intraop Monitoring Electrocardiogram Five lead placement Five lead placement (ECG) Electrode Placement Blood Pressure Non-Invasive BP Device Non-Invasive BP Device Source Blood Pressure Location Pulse Oximeter Probe Site Antiembolic Devices Antiembolic Devices Sequential compression Sequential compression device, knee high device, knee high, Antiembolic hose, knee high Antiembolic Device Right Right Location Antiembolic Device [id number] ID Number Antiembolic Device Setting Scopes Flexible Endoscopes Used Scope Serial Number/Identificatio n Number Photo/Video Documentation Photo Video Intraop Equipment SCD on non operative SCD on non operative Comment (right) leg and working (right) leg and working prior to induction prior to induction; SAMIA hose on right leg Last Modified By: Jamshid Whitney RN Kesten, Robert I, RN 11/06/20 10:32:09 11/06/20 10:32:09 [facility] IntraOp Intraoperative Equipment Audit 11/06/20 10:32:09 Tungsten Refiner: [id number] Modifier: [id number] 1 <*> Equipment Darleen Suction System 1 <*> ID Number [id number] <*> Electrocardiogram (ECG) Electrode Five lead placement Placement 1 <*> Antiembolic Devices Sequential compression device, knee high 1 <*> Antiembolic Device Location Right 1 <*> Blood Pressure Source Non-Invasive BP Device 1 <*> Intraop Equipment Comment SCD on non operative (right) leg and working prior to induction 1 <*> Type Equipment 1 <*> Antiembolic Device ID Number [id number] <+> 2 Equipment <+> 2 ID Number <+> 2 Electrocardiogram (ECG) Electrode Placement <+> 2 Antiembolic Devices <+> 2 Antiembolic Device Location <+> 2 Blood Pressure Source <+> 2 Intraop Equipment Comment <+> 2 Type <+> 2 Antiembolic Device ID Number [facility] IntraOp Medication Admin Entry 1 Entry 2 Entry 3 Medication/Irrigant Bacitracin 50,00units vancomycin 1Gm vial - hydrogen peroxide 16oz powder vial [id number] - [id number] Combo Med List Time Administered Route of Added to irrigation x 2 topical irrigation Administration Dose Dose Unit of Measure Volume Administered By DEAN LAVA KARTHIKEYAN, THARUN, KARTHIKEYAN, THARUN, MD-ORT -ORT -ORT [...] 40 mcg + Sodium Chloride to field [facility] IntraOp Medication Admin Audit 11/06/20 10:43:32 Tungsten Refiner: [id number] Modifier: [id number] 1 <*> Medication/Irrigant Bacitracin 50,00units powder vial 1 <*> Medication/Irrigant Bacitracin 50,00units powder vial 1 <*> Medication/Irrigant Bacitracin 50,00units powder vial 1 <*> Route of Administration irrigation 1 <*> Route of Administration irrigation 3 <*> Medication/Irrigant hydrogen peroxide 16oz - [id number] 3 <*> Route of Administration 3 <*> Administered By DEAN ALVA MD-ORT 11/06/20 10:42:25 Tungsten Refiner: [id number] Modifier: [id number] 2 <*> Medication/Irrigant vancomycin 1Gm vial - [id number] 2 <*> Medication/Irrigant vancomycin 1Gm vial - [id number] 2 <*> Route of Administration 2 <*> Route of Administration 2 <*> Administered By DEAN ALVA MD-ORT 2 <*> Administered By DEAN ALVA MD-ORT [facility] IntraOp Patient Positioning Entry 1 Procedure Knee [...] By DEAN ALVA MD-ORT, MARGA ALBERTS APRN, [employer] SALES REPRESENTATIVE, Jamshid Whitney I, JERZY, Kanwal Tolbert Rn Position Verified Positioning Yes Verified by Anesthesia Positioning Yes Verified by Surgeon Last Modified By: Jamshid Whitney RN 11/06/20 10:39:00 [facility] IntraOp Sign In Entry 1 Patient, Site, [...] Modified By: Jamshid Whitney RN 11/06/20 10:28:44 [facility] IntraOp Sign Out Entry 1 RN Confirmation [...] Modified By: Jamshid Whitney RN 11/06/20 11:15:30 [facility] IntraOp Sign Out Audit 11/06/20 11:15:30 Tungsten Refiner: [id number] Modifier: [id number] <+> 1 RN Sign Out Signature Date/Time [facility] IntraOp Skin Prep Entry 1 Procedure Knee Total Joint Replacement(Left) Prescribed Yes Pre-Surgical Prep Completed Prep Area OPERATIVE THIGH TO TOES CIRCUMFRENTIALLY Intraop Prep Integumentary WDL Assessment WDL Prep Agents Alcohol, Chloraprep, DuraPrep, Chlorhexadine gluconate Prep by Jamshid Whitney RN Hair Removal Methods No hair removal performed Last Modified By: Jamshid Whitney RN 11/06/20 10:28:17 [facility] IntraOp Surgical Procedures Entry 1 Procedure Knee Total Joint Replacement Modifiers Left Additional LEFT TOTAL KNEE Procedure ARHTROPLASTY Description Primary Procedure Yes Primary Surgeon DEAN ALVA MD-ORT Start 11/06/20 10:20:00 Stop 11/06/20 11:31:00 Anesthesia Type General Specialty Orthopedic Wound Class I - Clean Last Modified By: Kanwal Tolbert Rn 11/06/20 12:08:12 [facility] IntraOp Surgical Procedures Audit 11/06/20 12:08:12 Tungsten Refiner: [id number] Modifier: [id number] <+> 1 Stop 11/06/20 11:15:33 Tungsten Refiner: [id number] Modifier: [id number] <+> 1 Start [facility] IntraOp Temp Regulation Devices Entry 1 Temp Regulation Temperature Forced Air Warming Regulation Device device, Warm blankets, Room temperature Temperature 35656 Regulation Device Serial/Unit Number Temperature Upper body Regulation Site Temperature Device 43 DEGREES CELCIUS Setting Temperature MARGA ALBERTS, Regulation Device BLOCKER AND POLISHER GOLD WHEEL, [employer] SALES REPRESENTATIVE Applied by Last Modified By: Jamshid Whitney RN 11/06/20 10:29:13 [facility] IntraOP Time Out Entry 1 Procedure to [...] Modified By: Jamshid Whitney RN 11/06/20 10:21:02 [facility] IntraOp Tourniquet Entry 1 Type Pneumatic Serial/Unit Number [id number] Setting 300 mmHg Pheumatic Yes Tourniquet Checked Per Protocol Size 34 inches Placement Thigh, left upper Skin Protection - Yes Padded Under Cuff Applied By DEAN ALVA MD-ORT Removed By DEAN ALVA MD-ORMarycarmen Times Start Time 11/06/20 10:20:00 Stop Time 11/06/20 11:06:00 Last Modified By: Kanwal Tolbert Rn 11/06/20 12:09:31 [facility] IntraOp Tourniquet Audit 11/06/20 12:09:31 Tungsten Refiner: [id number] Modifier: [id number] 1 <*> Setting 300 mmHg 1 <*> Applied By DEAN ALVA MD-ORMarycarmen 1 <*> Removed By ARTIE, THARUN, MD-ORT 1 <*> Placement Thigh, left upper 1 <*> Type Pneumatic 1 <*> Serial/Unit Number [id number] 1 <*> Pheumatic Tourniquet Checked Per Yes Protocol 1 <*> Size 34 inches 1 <*> Skin Protection - Padded Under Cuff Yes 1 <*> Start Time 11/06/20 10:20:00 1 <*> Stop Time 11/06/20 11:06:00 Entry 2 was deleted. Higher numbered entries shifted one position to fill the gap. <-> 2 Stop Time 11/06/20 11:16:00 11/06/20 12:09:20 Tungsten Refiner: [id number] Modifier: [id number] <+> 1 Placement 11/06/20 12:09:01 Tungsten Refiner: [id number] Modifier: [id number] 1 <*> Stop Time 11/06/20 12:08:00 <+> 2 Stop Time 11/06/20 12:08:33 Tungsten Refiner: [id number] Modifier: [id number] <+> 1 Stop Time Case Comments <None> [...] on filedocumented in this encounter Care Teams Play Reader Relationship Specialty Start Date End Date Matheus Boggs MD [address] [place] [facility] [address] [place] [phone] PCP - General Family Medicine 09/05/22 documented as of this encounter
--- OUTSIDE RECORDS SUMMARY | 2025-05-19 13:38 | XMS_ITS | Encounter Summary ---
Author Organization [employer] ([place], [place], [place], [place]) Address [address] [place] [address] Care Team Providers Care Telemetry Nurse Name Role Phone Matheus Boggs MD Primary Care Provider + [phone] Encounter Details Date Type Department Care Team (Late st Contact Info) Description 11/06/2020 Transcribed Document [facility] [place] [facility] [place] [address] ProviderCristopher MD [address] [place] [address] Social History Tobacco Use Types Packs/Day [...] 11/06/2020 17:09 EDT Electronically signed by Kee [facility] Conversion Clinical Account Manager Cerner at 11/06/2022 12:53 PM CDT documented in this encounter Plan of Treatment Not on file documented as of this encounter Visit Diagnoses Not on filedocumented in this encounter Care Teams Telemetry Nurse Relationship Specialty Start Date End Date Matheus Boggs MD [address] [place] [facility] [address] [place] [phone] PCP - General Family Medicine 09/05/22 documented as of this encounter
--- OUTSIDE RECORDS SUMMARY | 2025-05-19 13:38 | XMS_ITS | Encounter Summary ---
Author Organization [employer] ([place], [place], [place], [place]) Address [address] [place] [address] Care Team Providers Care Chair Mender Name Role Phone Matheus Boggs MD Primary Care Provider + [phone] Encounter Details Date Type Department Care Team (Late st Contact Info) Description 11/06/2020 Transcribed Document [facility] Family Medicine [facility] [place] [address] ProviderCristopher MD [address] [place] [address] Social History Tobacco Use Types Packs/Day [...] 11/06/2020 14:26 EDT Electronically signed by Kee [facility] Conversion Manager Basketball Cerner at 11/06/2022 12:47 PM CDT documented in this encounter Plan of Treatment Not on file documented as of this encounter Visit Diagnoses Not on filedocumented in this encounter Care Teams Chair Mender Relationship Specialty Start Date End Date Matheus Boggs MD [address] [place] [facility] [address] [place] [address] PCP - General Family Medicine 09/05/22 documented as of this encounter
--- OUTSIDE RECORDS SUMMARY | 2025-05-19 13:38 | XMS_ITS | Encounter Summary ---
Author Organization [employer] ([place], [place], [place], [place]) Address [address] [place] [address] Care Team Providers Care Rn Mental Health Name Role Phone Matheus Boggs MD Primary Care Provider + [phone] Encounter Details Date Type Department Care Team (Late st Contact Info) Description 11/06/2020 Transcribed Document [facility] Family Medicine [facility] [place] [address] ProviderCristopher MD [address] [place] [address] Social History Tobacco Use Types Packs/Day [...] End Date/Time : 11/06/2020 9:10 EDT BERTRAND BARRIENOTS RN - 11/06/2020 9:09 EDT Electronically signed by [facility], [facility] Conversion Youth Associate Cerner at 11/06/2022 12:55 PM CDT documented in this encounter Plan of Treatment Not on file documented as of this encounter Visit Diagnoses Not on filedocumented in this encounter Care Teams Rn Mental Health Relationship Specialty Start Date End Date Matheus Boggs MD 12[address] [facility] [address] [place] [phone] PCP - General Family Medicine 09/05/22 documented as of this encounter
--- OUTSIDE RECORDS SUMMARY | 2025-05-19 13:38 | XMS_ITS | Encounter Summary ---
Author Organization [employer] ([place], [place], [place], [place]) Address [address] [place] [address] Care Team Providers Care Warhead Maintenance Specialist Name Role Phone Matheus Boggs MD Primary Care Provider + [phone] Encounter Details Date Type Department Care Team (Late st Contact Info) Description 11/06/2020 Transcribed Document [facility] Radiology [address] [place] [phone] 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 Chief Complaint L knee pain Review of [...] Oral, Daily Arnuity Ellipta: 100 mcg, Inhalation, [id number], PRN: Wheezing, 0 Refill(s) Levoxyl: 125 mcg, Oral, Daily, 0 Refill(s) Singulair: 10 mg, Oral, At Bedtime, 0 Refill(s) Ventolin HFA: 2 Puff, Inhalation, Q4H, PRN: as needed for wheezing, 0 Refill(s) acebutolol: 200 mg, Oral, BID, 0 Refill(s) fexofenadine: 180 mg, Oral, Daily, 0 Refill(s) fluticasone 50 mcg/inh nasal spray: 2 [place], Nasal, BID, PRN: Allergies, 16 Gram, 0 [...] Daily Arnuity Ellipta 100 mcg, PRN, Inhalation, [id number] fexofenadine 180 mg, Oral, Daily fluticasone 50 mcg/inh nasal spray 2 [place]urt[place], PRN, Nasal, BID hydrochlorothiazide-irbesartan 12.5 mg-150 mg [...] Problems Urinary tract infection / SNOMED CT 487979969 / Confirmed hypo Thyroid disease / SNOMED CT 639431284 / Confirmed Sinusitis / SNOMED CT 51615439 / Confirmed Seasonal allergies / SNOMED CT 3584039520 / Confirmed Renal calculus / SNOMED CT 103825924 / Confirmed Thyroid mass benign / SNOMED CT 2884161591 / Confirmed Irritable bowel syndrome / SNOMED CT 98850094 / Confirmed Incontinence/Frequency / SNOMED CT 10019855 / Confirmed Hyperlipidemia / SNOMED CT 39975373 / Confirmed High blood pressure / SNOMED CT 91053225 / Confirmed Hiatal hernia / SNOMED CT 652253429 / Confirmed Hemorrhoids / SNOMED CT 047941136 / Confirmed Hard of hearing has aides / SNOMED CT 536476986 / Confirmed Shortness of breath / SNOMED CT 034492239 / Confirmed Difficulty swallowing / SNOMED CT 59127827 / Confirmed H/O bilateral Cataract / SNOMED CT 407626680 / Confirmed Cardiac syndrome X / SNOMED CT 553588980 / Confirmed Bursitis / SNOMED CT 572181876 / Confirmed At risk for sleep apnea / IMO 51323346 / Confirmed Asthma / SNOMED CT 732912157 / Confirmed Arthritis osteo / SNOMED CT 8722152 / Confirmed Angina / SNOMED CT 989047638 / Confirmed Allergic rhinitis / SNOMED CT 231184904 / Confirmed, Active Problems (23) Allergic rhinitis [...] repair. right knee replacement. EGD - Esophagogastroduodenoscopy ([id number]). catarct ext. iol ou. Social History Social [...] Extraocular movements are intact, glasses. HENT: Normocephalic, [place]. Neck: Supple, Non-tender. Respiratory: Lungs are clear to auscultation, Respirations are non-labored. Cardiovascular: Normal rate, Regular rhythm, No murmur, No gallop, No edema. Gastrointestinal: Soft, Non-tender. Genitourinary: No costovertebral angle tenderness. Lymphatics: No lymphadenopathy neck, axilla, groin. Musculoskeletal: painful ROM L knee, LLE weakness, see comprehensive ortho exam in office notes. Integumentary: Warm, Dry, [place]. Neurologic: Alert, Oriented. Psychiatric: Cooperative, Appropriate mood [...] on filedocumented in this encounter Care Teams Warhead Maintenance Specialist Relationship Specialty Start Date End Date Matheus Boggs MD [address] [place] [facility] [address] [place] [phone] PCP - General Family Medicine 09/05/22 documented as of this encounter
--- OUTSIDE RECORDS SUMMARY | 2025-05-19 13:38 | XMS_ITS | Encounter Summary ---
Author Organization [employer] ([place], [place], [place], [place]) Address [address] [place] [address] Care Team Providers Care Telegraph Dispatcher Name Role Phone Matheus Boggs MD Primary Care Provider + [phone] Encounter Details Date Type Department Care Team (Late st Contact Info) Description 11/06/2020 Transcribed Document [facility] Family [place] [address] ProviderCristopher MD [address] [place] [address] Social History Tobacco Use Types Packs/Day [...] 11/06/2020 14:32 EDT Electronically signed by Kee, [facility] Conversion Ambulatory Technologist Cerner at 11/06/2022 12:55 PM CDT documented in this encounter Plan of Treatment Not on file documented as of this encounter Visit Diagnoses Not on filedocumented in this encounter Care Teams Telegraph Dispatcher Relationship Specialty Start Date End Date Matheus Boggs MD 1210 [facility] [address] [place] [phone] PCP - General Family Medicine 09/05/22 documented as of this encounter
--- OUTSIDE RECORDS SUMMARY | 2025-05-19 13:38 | XMS_ITS | Encounter Summary ---
Author Organization [employer] ([place], [place], [place], [place]) Address [address] [place] [address] Care Team Providers Care Chemical Compounder Helper Name Role Phone Matheus Boggs MD Primary Care Provider + [phone] Encounter Details Date Type Department Care Team (Late st Contact Info) Description 11/01/2020 Transcribed Document [facility] Family Medicine [facility] [place] [address] ProviderCristopher MD [address] [place] [address] Social History Tobacco Use Types Packs/Day [...] 11/01/2020 13:07 EDT Electronically signed by Kee [facility] Conversion Magician/Illusionist Cerner at 11/06/2022 12:55 PM CDT documented in this encounter Plan of Treatment Not on file documented as of this encounter Visit Diagnoses Not on filedocumented in this encounter Care Teams Chemical Compounder Helper Relationship Specialty Start Date End Date Matheus Boggs MD [address] [place] [facility] [address] [place] [phone] PCP - General Family Medicine 09/05/22 documented as of this encounter
--- OUTSIDE RECORDS SUMMARY | 2025-05-19 13:38 | XMS_ITS | Encounter Summary ---
Author Organization [employer] ([place], [place], [place], [place]) Address [address] [place] [address] Care Team Providers Care Business Solutions Architect Name Role Phone Matheus Boggs MD Primary Care Provider + [phone] Encounter Details Date Type Department Care Team (Late st Contact Info) Description 11/06/2020 Transcribed Document [facility] Radiology [address] [place] [phone] Lizz Gonzalez MD [facility] [place] [address] Social History Tobacco Use Types Packs/Day Years [...] Diagnosis Osteoarthritis left knee *Surgeon(s) Surgeon: Carlos Army Helicopter Pilot: Devin Ventura CSA *Procedure Narrative Patient identified [...] and PCL were resected. Next, distal femoral commercial helicopter pilot hole was drilled and the intramedullary [...] Bovie. Femur was sized. The FuZion gap social sciences professor was placed and tensed. Posterior condyle resection as noted above. Drill holes made through the social sciences professor and the appropriately sized four-in-one block placed [...] on filedocumented in this encounter Care Teams Business Solutions Architect Relationship Specialty Start Date End Date Matheus Boggs MD [address] [place] [facility] [address] [place] [phone] PCP - General Family Medicine 09/05/22 documented as of this encounter
--- OUTSIDE RECORDS SUMMARY | 2025-05-19 13:38 | XMS_ITS | Encounter Summary ---
Author Organization [employer] ([place], [place], [place], [place]) Address [address] [place] [address] Care Team Providers Care Youth Accommodation Support Worker Name Role Phone Matheus Boggs MD Primary Care Provider + [phone] Encounter Details Date Type Department Care Team (Late st Contact Info) Description 11/01/2020 Transcribed Document [facility] Family [place] [address] ProviderCristopher MD [address] [place] [address] Social History Tobacco Use Types Packs/Day [...] On: 11/01/2020 14:30 EDT by JOSH MALIK, It Instructor Primary Insurance Authorization Authorization and Policy Numbers : Insurance 1 Health Plan: MEDICARE Policy Number: [id number] Authorization Number: Insurance 2 Health Plan: AARP N Policy Number: [id number] Authorization Number: Insurance Primary Name : Medicare Authorization Status-Primary : No precert required Authorization Number-Primary : NPR for Medicare Authorized Service Begin Date-Primary : 11/06/2020 EDT Authorization Comments-Primary : Pt is brunilda for OUT PT total knee replacement on Friday11-06-20 Medicare: NPR Historical Authorization Comments-Primary : No Authorization Comments Found JOSH MALIK, It Instructor - 11/01/2020 14:30 EDT Secondary Insurance Authorization Authorization and Policy Numbers : Insurance 1 Health Plan: MEDICARE Policy Number: [id number] Authorization Number: Insurance 2 Health Plan: AARP N Policy Number: [id number] Authorization Number: Insurance Secondary Name : AARP Authorized Service Begin Date-Secondary : 11/06/2020 EDT Historical Authorization Comments-Secondary : No Authorization Comments Found JOSH MALIK, It Instructor - 11/01/2020 14:30 EDT documented in this encounter Plan of Treatment Not on file documented as of this encounter Visit Diagnoses Not on filedocumented in this encounter Care Teams Youth Accommodation Support Worker Relationship Specialty Start Date End Date Matheus Boggs MD [address] [place] [facility] [address] [place] [phone] PCP - General Family Medicine 09/05/22 documented as of this encounter
--- OUTSIDE RECORDS SUMMARY | 2025-05-19 13:38 | XMS_ITS | Encounter Summary ---
Author Organization [employer] ([place], [place], [place], [place]) Address [address] [place] [address] Care Team Providers Care Clay Preparation Supervisor Name Role Phone Matheus Boggs MD Primary Care Provider + [phone] Encounter Details Date Type Department Care Team (Late st Contact Info) Description 11/06/2020 Transcribed Document [facility] Family [facility] [place] [address] ProviderCristopher MD [address] [place] [address] Social History Tobacco Use Types Packs/Day [...] Ambulatory Legal Guardian : Daughter Support Person/Patient Full Fashioned Garment Knitter : Yes Support Person/Pt Rep Name : Bibiana Montelongo dtr Support Person/Pt Rep Contact Information : [phone] Bibiana Edmond Family/Rep/Phys Notified of Admit : No Emergency Contact #1 : `SHIRA Jeter RN - 11/06/2020 13:58 EDT Emergency Contact #1 SHIRA STEEL RN - 11/06/2020 18:14 EDT Emergency Contact #1 Relationship : daughter` SHIRA SHARMA RN - 11/06/2020 13:58 EDT Emergency Contact #2 : fay Emergency Contact #2 Phone Number : `[phone] Emergency Contact #2 Relationship : `daughter SHIRA SHARMA RN - 11/06/2020 18:14 EDT Information Obtained From : Patient Primary Language : Polish Preferred Communication Mode : Verbal Communication Barrier : None Clinical Studies Specialist Needed : No Objects to Sharing Info [...] Access : Yes Nicole Gait/Transferring : Weak [place] Mental Status : Oriented to own ability Nicole Fall Risk Score : 45 NICOLE Fall Scale Risk Level : 25-45 Medium Risk Everly Fall Interventions : Adequate lighting, Assistive devices [...] Smokeless Tobacco Status : Never Implant/Device Type, Picker Operator and Model : knee replacement abdominal mesh [...] Source : Measured Height Entry Format : [place] Height, Feet : 0 ft(Converted to: 0 cm, 0 Inch) Height, Inches : 60.5 Inch(Converted to: 5 ft 0 Inch, 153.67 cm) Clinical Height : 153.67 cm Weight Source : Standing scale Weight Entry Format : [place] Clinical Dosing Weight : 80.68 kg Weight, Pounds : 177.5 lb Body Surface Area (BSA) : 1.79 m2 Body Mass Index : 34.2 kg/m2 (HI) [place] Body Weight : 46 kg SHIRA SHARMA [...] SHIRA SHARMA RN - 11/06/2020 14:06 EDT Dexter Suicide Severity Rating Scale (C-SSRS) CSSRS Past [...] on filedocumented in this encounter Care Teams Clay Preparation Supervisor Relationship Specialty Start Date End Date Matheus Boggs MD [address] [place] [facility] [address] [place] [phone] PCP - General Family Medicine 09/05/22 documented as of this encounter
== END 2025-05-18 23:59 | disposition home or self-care (01) ==
LOC: LAB.DROPOF 05-19 13:30
PROVIDERS: PCP Nurse Practitioner; Visit Provider Nurse Practitioner
DX: R30.0 Dysuria (principal); R13.10 Dysphagia, unspecified; R31.9 Hematuria, unspecified
CPT/HCPCS: 87086

== ENCOUNTER 2025-07-06 08:44 | Outpatient (CLI) | payer MEDICARE, OTHER, SELFPAY ==
--- OUTSIDE RECORDS SUMMARY | 2025-07-06 09:02 | XMS_ITS | Encounter Summary ---
Author Organization [employer] ([place], [place], [place], [place], [place]) Address [address] [place] [address] Care Team Providers Care Coal Chemist Name Role Phone Matheus Boggs MD Primary Care Provider + [phone] Encounter Details Date Type Department Care Team (Late st Contact Info) Description 11/07/2020 Transcribed Document [facility] Family Medicine [address] [place] [address] ProviderCristopher MD [address] [place] [address] Social History Tobacco Use Types [...] of the form. Electronically signed by Kee [facility] Conversion Forging Die Finisher Cerner at 11/06/2022 1:11 PM CDT documented in this encounter Plan of Treatment Not on file documented as of this encounter Visit Diagnoses Not on filedocumented in this encounter Care Teams Coal Chemist Relationship Specialty Start Date End Date Matheus Boggs MD [address] [place] [address] [place] [address] PCP - General Family Medicine 09/05/22 documented as of this encounter
--- OUTSIDE RECORDS SUMMARY | 2025-07-06 09:02 | XMS_ITS | Encounter Summary ---
Author Organization [employer] ([place], [place], [place], [place], [place]) Address [address] [place] [address] Care Team Providers Care Traveling Storekeeper Name Role Phone Matheus Boggs MD Primary Care Provider + [phone] Encounter Details Date Type Department Care Team (Late st Contact Info) Description 11/07/2020 Transcribed Document [facility] Family Medicine [address] [place] [address] ProviderCristopher MD [address] [place] [address] Social History Tobacco Use Types [...] on filedocumented in this encounter Care Teams Traveling Storekeeper Relationship Specialty Start Date End Date Matheus Boggs MD [address] [place] [facility] [address] [place] [address] PCP - General Family Medicine 09/05/22 documented as of this encounter
--- OUTSIDE RECORDS SUMMARY | 2025-07-06 09:02 | XMS_ITS | Encounter Summary ---
Author Organization [employer] ([place], [place], [place], [place], [place]) Address [address] [place] [address] Care Team Providers Care Furnace Builder Name Role Phone Matheus Boggs MD Primary Care Provider + [phone] Encounter Details Date Type Department Care Team (Late st Contact Info) Description 11/07/2020 Transcribed Document [facility] [place] [address] [place] [address] ProviderCristopher MD [address] [place] [address] Social History Tobacco Use Types [...] of Dr. Gonzalez or Dr. Arthur, call [phone] If you are a patient of Dr. German, call [phone] Nurse Navigator: Ivanna Carrsaco Office: [phone]; ; available during regular business hours Electronically signed by Kee [facility] Conversion Screen Tender Helper Cerner at 11/06/2022 1:12 PM CDT documented in this encounter Plan of Treatment Not on file documented as of this encounter Visit Diagnoses Not on filedocumented in this encounter Care Teams Furnace Builder Relationship Specialty Start Date End Date Matheus Boggs MD [address] [place] [phone] PCP - General Family Medicine 09/05/22 documented as of this encounter
--- OUTSIDE RECORDS SUMMARY | 2025-07-06 09:02 | XMS_ITS | Encounter Summary ---
Author Organization [facility] Address [address] [place] [address] Care Team Providers Care Group Leader Semiconductor Processing Name Role Phone Devin Mendoza MD Primary Care Provider Matheus Boggs MD Primary Care Provider Mitchell Oliva MD Unavailable [phone] Encounter Details Date Type Department Care Team (Late st Contact Info) Description 02/15/2010 Abstract [facility] Physicians - Primary Care, [address] [place] [phone] Devin Mendoza MD [address] [place] [address] [place] [address] Social History Tobacco Use Types Packs/Day [...] on filedocumented in this encounter Care Teams Group Leader Semiconductor Processing Relationship Specialty Start Date End Date Devin Mendoza MD PCP - General 04/29/08 09/13/14 Matheus Boggs MD [address] [place] [address] PCP - General Family Medicine 09/14/14 Mitchell Oliva MD [address] [place] [address] [address] [place] [address] General Surgery 07/28/22 documented as of this encounter
--- OUTSIDE RECORDS SUMMARY | 2025-07-06 09:02 | XMS_ITS | Encounter Summary ---
Author Organization [employer] ([place], [place], [place], [place], [place]) Address [address] [place] [address] Care Team Providers Care Automobile Bumper Straightener Name Role Phone Matheus Boggs MD Primary Care Provider [phone] Encounter Details Date Type Department Care Team (Late st Contact Info) Description 11/07/2020 Transcribed Document [facility] [place] [address] [place] [address] ProviderCristopher MD [address] [place] [address] Social History Tobacco Use Types [...] Conversion Note - Historical ProviderMD - 11/07/2020 2:19 PM CDT Nursing Discharge Summary Entered On: 11/07/2020 14:20 EDT Performed On: 11/07/2020 14:19 EDT by YEMI CALL molecular biology scientist Documentation Discharge Date/Time : 11/07/2020 14:20 EDT [...] materials Teaching Evaluation : Verbalizes understanding YEMI CALL RN - 11/07/2020 14:19 EDT Electronically signed by [facility], [facility] Conversion Outside Sales Account Representative Cerner at 11/06/2022 1:13 PM CDT documented in this encounter Plan of Treatment Not on file documented as of this encounter Visit Diagnoses Not on filedocumented in this encounter Care Teams Automobile Bumper Straightener Relationship Specialty Start Date End Date Matheus Boggs MD 1210 [facility] [address] [place] [phone] PCP - General Family Medicine 09/05/22 documented as of this encounter
--- OUTSIDE RECORDS SUMMARY | 2025-07-06 09:02 | XMS_ITS | Encounter Summary ---
Author Organization [facility] Address [address] [place] [address] Care Team Providers Care Engineering Agent Name Role Phone Devin Mendoza MD Primary Care Provider Matheus Boggs MD Primary Care Provider Mitchell Oliva MD Unavailable [phone] Reason for Visit * Reason Comments Medications Refill Encounter Details Date Type Department Care Team (Late st Contact Info) Description 06/26/2010 Refill [facility] Physicians - Primary Care, [address] [place] [phone] Devin Mendoza MD [address] [place] [address] [place] [address] Medications Refill Social History Tobacco Use [...] filedocumented in this encounter Care Teams Engineering Agent Relationship Specialty Start Date End Date Devin Mendoza MD PCP - General 04/29/08 09/13/14 Matheus Boggs MD [address] [place] [address] PCP - General Family Medicine 09/14/14 [place] [address] [place] [address] [address] [place] [address] General Surgery 07/28/22 documented as of this encounter
--- OUTSIDE RECORDS SUMMARY | 2025-07-06 09:02 | XMS_ITS | Encounter Summary ---
Author Organization [employer] ([place], [place], [place], [place], [place]) Address [address] [place] [address] Care Team Providers Care Telephone Answering Service Operator Name Role Phone Matheus Boggs MD Primary Care Provider + [phone] Encounter Details Date Type Department Care Team (Late st Contact Info) Description 11/14/2020 Transcribed Document [facility] Family Medicine [address] [place] [address] ProviderCristopher MD [address] [place] [address] Social History Tobacco Use Types [...] DANGELO PA-ORT - 03:00 PM Previously Documented Detention Patient Stated Goal : No Patient Stated [...] on filedocumented in this encounter Care Teams Telephone Answering Service Operator Relationship Specialty Start Date End Date Matheus Boggs MD [address] [place] [facility] [address] [place] [phone] PCP - General Family Medicine 09/05/22 documented as of this encounter
--- OUTSIDE RECORDS SUMMARY | 2025-07-06 09:03 | XMS_ITS | Encounter Summary ---
Author Organization [employer] ([place], [place], [place], [place], [place]) Address [address] [place] [address] Care Team Providers Care Event Representative Name Role Phone Michelet Boggs MD Primary Care Provider [phone] Encounter Details Date Type Department Care Team (Late st Contact Info) Description 11/07/2020 Transcribed Document [facility] [place] Family Medicine [address] [place] [address] ProviderCristopehr MD [address] [place] [address] Social History Tobacco Use Types [...] On: 11/07/2020 16:32 EDT by NAGI TAPIA RN-Finger Lift Operator Initial Assessment I Previously Documented Living Environment : No qualifying data available. Living Situation : Home Patient Lives With : Alone Is the Patient a Caregiver at Home? : No Emergency Contact #1 : Janiya White Emergency Contact #1 ` Emergency Contact #1 Relationship : daughter` Emergency Contact #2 : fay Emergency Contact #2 Phone Number : `[phone] Emergency Contact #2 Relationship : `daughter Enter Doctors Name : MICHELET BOGGS (REF) T Does Patient have PCP Listed? : Yes NAGI TAPIA RN-Finger Lift Operator - 11/07/2020 16:32 EDT Initial Assessment II Sensory and Motor Deficits : None Current Home Treatments and Equipment : Bedside commode, Walker Does the Patient have a Floor to SNF Benefit? : No NAGI TAPIA RN-Finger Lift Operator - 11/07/2020 16:32 EDT Discharge Needs I Anticipated Discharge Date : 11/07/2020 EDT Anticipated Discharge To, CM : Home with home health Current Home Treatment/Equipment : Current Home Treatment/Equipment No qualifying data available. Post Acute/Home Treatments : None Documentation Status Complete : Yes NAGI TAPIA RN-Finger Lift Operator - 11/07/2020 16:32 EDT Discharge Needs II Professional Skilled Services : Professional Skilled Services No qualifying data available. Needs Assistance with Transportation : No Discharge Options Discussed with Patient : Home Health NAGI TAPIA RN-Finger Lift Operator - 11/07/2020 16:32 EDT Narrative Note Narrative Note : 75yo female pt s/p LTKA. Met with pt at bedside to discuss DCP. 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 Pt chose [place] for HH again like last time. Referral sent via [facility] and confirmed acceptance and SOC tomorrow 11/08 with Ashley in intake. No other CM needs noted. NAGI TAPIA RN-Finger Lift Operator - 11/07/2020 16:32 EDT documented in this encounter Plan of Treatment Not on file documented as of this encounter Visit Diagnoses Not on filedocumented in this encounter Care Teams Event Representative Relationship Specialty Start Date End Date Michelet Boggs MD [address] [place] [address] [place] [address] PCP - General Family Medicine 09/05/22 documented as of this encounter
--- OUTSIDE RECORDS SUMMARY | 2025-07-06 09:03 | XMS_ITS | Encounter Summary ---
Author Organization [employer] ([place], [place], [place], [place], [place]) Address [address] [place] [address] Care Team Providers Care Engineering Operations Leader Name Role Phone Matheus Boggs MD Primary Care Provider + [phone] Encounter Details Date Type Department Care Team (Late st Contact Info) Description 11/07/2020 Transcribed Document [facility] [place] Family Medicine [address] [place] [address] ProviderCristopher MD [address] [place] [address] Social History Tobacco Use Types [...] Conversion Note - Historical ProviderMD - 11/07/2020 11:18 AM CDT Stroke/Warfarin [...] filedocumented in this encounter Care Teams Engineering Operations Leader Relationship Specialty Start Date End Date Matheus Boggs MD [address] [place] [facility] [address] [place] [phone] PCP - General Family Medicine 09/05/22 documented as of this encounter
--- OUTSIDE RECORDS SUMMARY | 2025-07-06 09:03 | XMS_ITS | Encounter Summary ---
Author Organization [employer] ([place], [place], [place], [place], [place]) Address [address] [place] [address] Care Team Providers Care Security Supervisor Name Role Phone Matheus Boggs MD Primary Care Provider [phone] Encounter Details Date Type Department Care Team (Late st Contact Info) Description 11/07/2020 Transcribed Document [facility] [place] Family Medicine [address] [place] [address] ProviderCristopher MD [address] [place] [address] Social History Tobacco Use Types [...] version of the form. Electronically signed by Benjamin Sweet Conversion Director Of Labor And Delivery Cerner at 11/06/2022 1:01 PM CDT documented in this encounter Plan of Treatment Not on file documented as of this encounter Visit Diagnoses Not on filedocumented in this encounter Care Teams Security Supervisor Relationship Specialty Start Date End Date Matheus Boggs MD [address] [place] [address] PCP - General Family Medicine 09/05/22 documented as of this encounter
--- OUTSIDE RECORDS SUMMARY | 2025-07-06 09:03 | XMS_ITS | Encounter Summary ---
Author Organization [employer] ([place], [place], [place], [place], [place]) Address [address] [place] [address] Care Team Providers Care Patient Services Specialist Name Role Phone Matheus Boggs MD Primary Care Provider [phone] Encounter Details Date Type Department Care Team (Late st Contact Info) Description 11/07/2020 Transcribed Document [facility] [place] Family Medicine [address] [place] [address] ProviderCristopher MD [address] [place] [address] Social History Tobacco Use Types [...] Insurance 1 Health Plan: MEDICARE Policy Number: [id number] Authorization Number: Insurance 2 Health Plan: AARP N Policy Number: [id number] Authorization Number: Insurance Primary Name : Medicare Authorization Status-Primary : No precert required Authorization Number-Primary : NPR for Medicare Authorized Service Begin Date-Primary : 11/06/2020 EDT Historical Authorization Comments-Primary : Comment 1: Pt is brunilda for OUT PT total knee replacement on Friday11-06-20 Medicare: NPR (JOSH MALIK, Claims Associate 11/01/2020 14:30) Susi Andino Rn-Utilization Review - 11/07/2020 11:06 EDT Electronically signed by Kee [facility] Conversion Ic Designer Standard Cells Cerner at 11/06/2022 1:02 PM CDT documented in this encounter Plan of Treatment Not on file documented as of this encounter Visit Diagnoses Not on filedocumented in this encounter Care Teams Patient Services Specialist Relationship Specialty Start Date End Date Matheus Boggs MD [address] [facility] [address] [place] [address] PCP - General Family Medicine 09/05/22 documented as of this encounter
--- OUTSIDE RECORDS SUMMARY | 2025-07-06 09:03 | XMS_ITS | Encounter Summary ---
Author Organization [employer] ([place], [place], [place], [place], [place]) Address [address] [place] [address] Care Team Providers Care Toe Lining Closer Name Role Phone Matheus Bgogs MD Primary Care Provider + [phone] Encounter Details Date Type Department Care Team (Late st Contact Info) Description 11/07/2020 Transcribed Document [facility] [place] Family Medicine [address] [place] [address] ProviderCristopher MD [address] [place] [address] Social History Tobacco Use Types [...] On: 11/07/2020 16:35 EDT by NAGI TAPIA RN-Drawing Box Tender Final Discharge Planning Discharge Arrangements : Patient [...] Services (Related/SOC within 3 days)-06 NAGI TAPIA RN-Drawing Box Tender - 11/07/2020 16:35 EDT Electronically signed by Kee [facility] Conversion Consultant Teacher Cerner at 11/06/2022 12:49 PM CDT documented in this encounter Plan of Treatment Not on file documented as of this encounter Visit Diagnoses Not on filedocumented in this encounter Care Teams Toe Lining Closer Relationship Specialty Start Date End Date Matheus Boggs MD [address] [facility] [address] [place] [phone] PCP - General Family Medicine 09/05/22 documented as of this encounter
--- OUTSIDE RECORDS SUMMARY | 2025-07-06 09:03 | XMS_ITS | Encounter Summary ---
Author Organization [employer] ([place], [place], [place], [place], [place]) Address [address] [place] [address] Care Team Providers Care Contracting Specialist Name Role Phone Matheus Boggs MD Primary Care Provider + [phone] Encounter Details Date Type Department Care Team (Late st Contact Info) Description 11/06/2020 Transcribed Document [facility] [place] Family Medicine [address] [place] [address] ProviderCristopher MD [address] [place] [address] Social History Tobacco Use Types [...] and pastoral prayer; Ms. Walker expressed gratitude Rastafarian Preference : [employer] ([employer]) ERIC UNDERWOOD - 11/06/2020 16:42 EDT Electronically signed by Kee [facility] Conversion Soda Tester Cerner at 11/06/2022 1:13 PM CDT documented in this encounter Plan of Treatment Not on file documented as of this encounter Visit Diagnoses Not on filedocumented in this encounter Care Teams Contracting Specialist Relationship Specialty Start Date End Date Matheus Boggs MD [address] [facility] [address] [place] [phone] PCP - General Family Medicine 09/05/22 documented as of this encounter
--- OUTSIDE RECORDS SUMMARY | 2025-07-06 09:03 | XMS_ITS | Encounter Summary ---
Author Organization [employer] ([place], [place], [place], [place], [place]) Address [address] [place] [address] Care Team Providers Care Auto Body Repair Technician Name Role Phone Matheus Boggs MD Primary Care Provider [phone] Encounter Details Date Type Department Care Team (Late st Contact Info) Description 11/07/2020 Transcribed Document [facility] [place] [address] [place] [address] ProviderCristopher MD [address] [place] [address] Social History Tobacco Use Types [...] - 11/07/2020 12:00 EDT Electronically signed by Kee, [facility] Conversion Tufting Machine Fixer Cerner at 11/06/2022 12:49 PM CDT documented in this encounter Plan of Treatment Not on file documented as of this encounter Visit Diagnoses Not on filedocumented in this encounter Care Teams Auto Body Repair Technician Relationship Specialty Start Date End Date Matheus Boggs MD [address] [place] [facility] [address] [place] [address] PCP - General Family Medicine 09/05/22 documented as of this encounter
--- OUTSIDE RECORDS SUMMARY | 2025-07-06 09:03 | XMS_ITS | Encounter Summary ---
Author Organization [employer] ([place], [place], [place], [place], [place]) Address [address] [place] [address] Care Team Providers Care Conduit Bender Name Role Phone Matheus Boggs MD Primary Care Provider + [phone] Encounter Details Date Type Department Care Team (Late st Contact Info) Description 11/07/2020 Transcribed Document [facility] [place] [address] [place] [address] ProviderCristopher MD [address] [place] [address] Social History Tobacco Use Types [...] On: 11/07/2020 16:35 EDT by NAGI TAPIA RN-Restorer Lace And TextilesHand Singer Progress Note Discharge Arrangements : Patient Post-Acute [...] Attend Multidisciplinary Rounds? : Yes NAGI TAPIA RN-Restorer Lace And Textiles - 11/07/2020 16:35 EDT Electronically signed by [facility] Conversion Managed Care Specialist Cerner at 11/06/2022 1:02 PM CDT documented in this encounter Plan of Treatment Not on file documented as of this encounter Visit Diagnoses Not on filedocumented in this encounter Care Teams Conduit Bender Relationship Specialty Start Date End Date Matheus Boggs MD [address] [facility] [address] [place] [address] PCP - General Family Medicine 09/05/22 documented as of this encounter
--- OUTSIDE RECORDS SUMMARY | 2025-07-06 09:03 | XMS_ITS | Encounter Summary ---
Author Organization [employer] ([place], [place], [place], [place], [place]) Address [address] [place] [address] Care Team Providers Care Auditing Clerk Name Role Phone Michelet Boggs MD Primary Care Provider [phone] Encounter Details Date Type Department Care Team (Late st Contact Info) Description 11/07/2020 Transcribed Document [facility] [place] Family Medicine [address] [place] [address] ProviderCristopher MD [address] [place] [address] Social History Tobacco Use Types [...] Cristopher ProviderMD - 11/07/2020 12:02 PM CDT [facility] [place] [address] MELISSA WALKER V :1945 Visit Time:11/06/2020 Your Visit Summary Your Care Team Admitting Physician - DEAN GONZALEZ MD-ORT Attending Physician - DEAN GONZALEZ MD-ORT Primary Care Physician - MICHELET BOGGS (REF), MAXIM Referring Physician - DEAN GONZALEZ MD-ORT Your Diagnosis History of knee replacement Unilateral [...] if no drainage present Home Health Services: [place]--[phone] Please STOP taking the medication meloxicam. Discharge Follow Up Instructions: Follow-up Dr. Gonzalez 3 wks ([phone]) Follow Up Instructions: Continue SAMIA hose for 6 weeks Follow Up Instructions: Leave Aquacel dressing in place x 7-10d, then open to air. Follow-Up Appointments Follow Up with SHWETA DANGELO PA-ORT When 11/28/2020 03:00 PM EDT Where: [address] [place], [place] [address] [address]- Medications What How Much When Instructions Next Dose acetaminophen-oxyCODONE (Percocet 5/ 325 oral tablet) 1 Tablet(s) Oral Every 4 Hours as needed for as needed for pain not to exceed 5 tablets/ day Pickup at [facility] aspirin (aspirin 81 mg oral delayed release tablet) 1 Tablet(s) Oral Two Times A Day Pickup at [facility] cefadroxil (cefadroxil 500 mg oral capsule) 1 Capsule(s) Oral Every 12 hours Duration: 7 Day(s) Pickup at [facility] docusate (Colace 100 mg oral capsule) 1 Capsule(s) Oral Two Times A Day as needed for for constipation Duration: 30 Day(s) Pickup at [facility] if needed acebutolol 200 Milligram(s) Oral [...] (fluticasone 50 mcg/ inh nasal spray) 2 [place](s) Nasal Two Times A Day as needed for Allergies as needed hydrochlorothiazide-irbesartan (hydrochlorothiazide-irbesartan 12.5 mg-150 mg oral tablet) 1 Tablet(s) Oral Every Day in am levothyroxine (Levoxyl) 125 Microgram(s) Oral Every Day in am liothyronine 5 Microgram(s) Oral Every Day in am montelukast (Singulair) 10 Milligram(s) Oral At Bedtime [facility] nitrofurantoin (nitrofurantoin macrocrystals 50 mg oral capsule) 1 Capsule(s) Oral At Bedtime [facility] Pharmacy Information [facility]: [address] [facility] [address] [place], [place] [id number] [phone] Take your medications faithfully. Do NOT skip [...] of Dr. Gonzalez or Dr. Arthur, call [phone] If you are a patient of Dr. German, call [phone] Nurse Navigator: Ivanna Carrasco Office: [phone]; ; available during regular business hours cefadroxil [...] may report side effects to FDA at 8-738-DOY-7949. What other drugs will affect cefadroxil? Other drugs may affect cefadroxil, including prescription and fmob-qwn-rhjckng medicines, vitamins, and herbal products. Tell your [...] to ensure that the information provided by [employer]. ('[employer]') is accurate, up-to-date, and complete, but no guarantee is made to that effect. Drug information contained herein may be time sensitive. [employer] information has been compiled for use by healthcare practitioners and consumers in the [place] and therefore [employer] does not warrant that uses outside of the [place] are appropriate, unless specifically indicated otherwise. [employer] drug information does not endorse drugs, diagnose patients or recommend therapy. [employer] drug information is an informational resource designed [...] effective or appropriate for any given patient. [employer] does not assume any responsibility for any aspect of healthcare administered with the aid of information [employer] provides. The information contained herein is not intended to cover all possible uses, directions, precautions, warnings, drug interactions, allergic reactions, or adverse effects. If you have questions about the drugs you are taking, check with your doctor, nurse or pharmacist. Copyright 7851-1757 [facility] [employer]. Version: 6.03. Revision Date: 07/24/2020. aspirin (oral) [...] What is aspirin? Aspirin is a salicylate (bl-AUY-rc-ate) that is used to treat pain, and [...] may report side effects to FDA at 7-837-FVF-2854. What other drugs will affect aspirin? Ask [...] drugs may affect aspirin, including prescription and pynt-zgl-usptlhj medicines, vitamins, and herbal products. Not all [...] to ensure that the information provided by [employer]. ('[employer]') is accurate, up-to-date, and complete, but no guarantee is made to that effect. Drug information contained herein may be time sensitive. [employer] information has been compiled for use by healthcare practitioners and consumers in the [place] and therefore [employer] does not warrant that uses outside of the [place] are appropriate, unless specifically indicated otherwise. [employer] drug information does not endorse drugs, diagnose patients or recommend therapy. [employer] drug information is an informational resource designed [...] effective or appropriate for any given patient. [facility] [employer] does not assume any responsibility for any aspect of healthcare administered with the aid of information [employer] provides. The information contained herein is not intended to cover all possible uses, directions, precautions, warnings, drug interactions, allergic reactions, or adverse effects. If you have questions about the drugs you are taking, check with your doctor, nurse or pharmacist. Copyright 0866-4142 [facility] [employer]. Version: 16.02. Revision Date: 03/08/2020. docusate (oral/rectal) (DOK ue [...] may report side effects to FDA at 4-384-HBV-6806. What other drugs will affect docusate? Other drugs may affect docusate, including prescription and jtxe-ktv-bvfvqrs medicines, vitamins, and herbal products. Tell your [...] to ensure that the information provided by [employer]. ('[employer]') is accurate, up-to-date, and complete, but no guarantee is made to that effect. Drug information contained herein may be time sensitive. [employer] information has been compiled for use by healthcare practitioners and consumers in the [place] and therefore [employer] does not warrant that uses outside of the [place] are appropriate, unless specifically indicated otherwise. [employer]'s drug information does not endorse drugs, diagnose patients or recommend therapy. [employer] drug information is an informational resource designed [...] effective or appropriate for any given patient. [employer] does not assume any responsibility for any aspect of healthcare administered with the aid of information [employer] provides. The information contained herein is not intended to cover all possible uses, directions, precautions, warnings, drug interactions, allergic reactions, or adverse effects. If you have questions about the drugs you are taking, check with your doctor, nurse or pharmacist. Copyright 9611-1929 [employer]. Version: 4.01. Revision Date: 01/25/2019. acetaminophen and [...] may report side effects to FDA at 1-371-ZEO-4661. What other drugs will affect acetaminophen and [...] affect acetaminophen and oxycodone, including prescription and cbin-iyg-wpgauwr medicines, vitamins, and herbal products. Not all [...] to ensure that the information provided by [employer]. ('[employer]') is accurate, up-to-date, and complete, but no guarantee is made to that effect. Drug information contained herein may be time sensitive. [employer] information has been compiled for use by healthcare practitioners and consumers in the [place] and therefore [employer] does not warrant that uses outside of the [place] are appropriate, unless specifically indicated otherwise. [employer] drug information does not endorse drugs, diagnose patients or recommend therapy. [employer] drug information is an informational resource designed [...] effective or appropriate for any given patient. [facility] does not assume any responsibility for any aspect of healthcare administered with the aid of information [facility] provides. The information contained herein is not intended to cover all possible uses, directions, precautions, warnings, drug interactions, allergic reactions, or adverse effects. If you have questions about the drugs you are taking, check with your doctor, nurse or pharmacist. Copyright 5416-9597 [employer] [facility]. Version: 20.03. Revision Date: 08/25/2020. Emergency Awareness [...] Assistance with quitting is available by contacting 6-982-HGAN-NOW. This is a free resource providing counseling, [...] range between ( 0.0 and 7.0 ) Keith #: 0.65 K/uL -- Normal range between ( 0.16 and 1.00 ) Eos #: 0.12 x10(3)/uL -- Normal range between ( 0.00 and 0.80 ) Keith %: 8.7 % -- Normal range between [...] 9.2 and 12.0 ) Patient Name:MELISSA WALKER I have received and understand this information and was given the opportunity to ask questions. Patient/Computer Engineering Technician Name: Patient/Computer Engineering Technician Signature: Relationship to Patient: Clinician/Hospital Computer Engineering Technician Signature: Date: documented in this encounter Plan of Treatment Not on file documented as of this encounter Visit Diagnoses Not on filedocumented in this encounter Care Teams Auditing Clerk Relationship Specialty Start Date End Date Michelet Boggs MD [address] [place] [facility] [address] [place] [address] PCP - General Family Medicine 09/05/22 documented as of this encounter
--- OUTSIDE RECORDS SUMMARY | 2025-07-06 09:03 | XMS_ITS | Encounter Summary ---
Author Organization [employer] ([place], [place], [place], [place], [place]) Address [address] [place] [address] Care Team Providers Care Incinerator Plant General Supervisor Name Role Phone Matheus Boggs MD Primary Care Provider [phone] Encounter Details Date Type Department Care Team (Late st Contact Info) Description 11/07/2020 Transcribed Document [address] [address] Chris Keyes MD [address] [place] [address] Social History Tobacco Use Types Packs/Day Years [...] is a 75 yo female admitted to [facility] per Dr. Gonzalez for a [...] her. Denies prior stroke or seizure. Denies VT, CHF or cardiac arrhythmia. Denies DM. Denies [...] Daily Arnuity Ellipta 100 mcg, PRN, Inhalation, B30MEfs aspirin 81 mg oral delayed release tablet 81 mg = 1 Tab, Oral, BID cefadroxil 500 mg oral capsule 500 mg = 1 Cap, Oral, Q12H Colace 100 mg oral capsule 100 mg = 1 Cap, PRN, Oral, BID fexofenadine 180 mg, Oral, Daily fluticasone 50 mcg/inh nasal spray 2 [place], PRN, Nasal, BID hydrochlorothiazide-irbesartan 12.5 mg-150 mg [...] on filedocumented in this encounter Care Teams Incinerator Plant General Supervisor Relationship Specialty Start Date End Date Matheus Boggs MD [address] [place] [facility] [address] [place] [address] PCP - General Family Medicine 09/05/22 documented as of this encounter
--- OUTSIDE RECORDS SUMMARY | 2025-07-06 09:03 | XMS_ITS | Encounter Summary ---
Author Organization [facility] ([place], [place], [place], [place], [place]) Address [address] [place] [address] Care Team Providers Care Source Water Protection Specialist Name Role Phone Matheus Boggs MD Primary Care Provider [phone] Encounter Details Date Type Department Care Team (Late st Contact Info) Description 11/07/2020 Transcribed Document [facility] [place] [address] [place] [address] ProviderCristopher MD [address] [place] [address] Social History Tobacco Use Types [...] Conversion Note - Historical ProviderMD - 11/07/2020 7:14 AM CDT Patient: [...] home health. Discharge Follow Up SHWETA DANGELO PA-MARIANELA - 03:[address] Sin Mcnamara, urology Discharge Medications (14) Active acebutolol 200 mg, Oral, BID Align 4 mg oral capsule 4 mg = 1 Cap, Oral, Daily Arnuity Ellipta 100 mcg, PRN, Inhalation, D18FFht aspirin 81 mg oral delayed release tablet 81 mg = 1 Tab, Oral, BID cefadroxil 500 mg oral capsule 500 mg = 1 Cap, Oral, Q12H Colace 100 mg oral capsule 100 mg = 1 Cap, PRN, Oral, BID fexofenadine 180 mg, Oral, Daily fluticasone 50 mcg/inh nasal spray 2 [place], PRN, Nasal, BID hydrochlorothiazide-irbesartan 12.5 mg-150 mg [...] Mcnamara. Pending Labs In Process SENDOUT REPORT [id number], [id number], RT - Routine, 11/06/20 11:08:00 EDT Pathology Tissue Request [id number], [id number], 11/06/20 11:08:00 EDT, Collected, RT - Routine, 11/06/20 12:22:23 EDT, IGOR ACEVEDO [employer], Specimen Type: AP Specimen, Specimen Desc: [...] Collect Time Spent on Discharge 15 minutes Electronically signed by Benjamin Sweet Conversion Oracle Fusion Middleware Developer Cerner at 11/06/2022 12:55 PM CDT documented in this encounter Plan of Treatment Not on file documented as of this encounter Visit Diagnoses Not on filedocumented in this encounter Care Teams Source Water Protection Specialist Relationship Specialty Start Date End Date Matheus Boggs MD [address] [facility] [address] [place] [address] PCP - General Family Medicine 09/05/22 documented as of this encounter
--- OUTSIDE RECORDS SUMMARY | 2025-07-06 09:04 | XMS_ITS | Encounter Summary ---
Author Organization [employer] ([place], [place], [place], [place], [place]) Address [address] [place] [address] Care Team Providers Care Dockworker Name Role Phone Matheus Boggs MD Primary Care Provider + [phone] Encounter Details Date Type Department Care Team (Late st Contact Info) Description 01/31/2020 Transcribed Document [facility] [place] [address] [place] [address] ProviderCristopher MD [address] [place] [address] Social History Tobacco Use Types [...] on filedocumented in this encounter Care Teams Dockworker Relationship Specialty Start Date End Date Matheus Boggs MD [address] [place] [facility] [address] [place] [address] PCP - General Family Medicine 09/05/22 documented as of this encounter
--- OUTSIDE RECORDS SUMMARY | 2025-07-06 09:04 | XMS_ITS | Encounter Summary ---
Author Organization [employer] ([place], [place], [place], [place], [place]) Address [address] [place] [address] Care Team Providers Care Feather Washer Name Role Phone Matheus Boggs MD Primary Care Provider + [phone] Encounter Details Date Type Department Care Team (Late st Contact Info) Description 01/13/2020 Transcribed Document [facility] [place] [address] [place] [address] ProviderCristopher MD [address] [place] [address] Social History Tobacco Use Types [...] from sitting : Severe 7. Bending to floor/pickler helper an object : Moderate JESSY SÁNCHEZ Raw [...] Tere Carrasco RN-Navigator - 02/28/2020 10:06 EDT Electronically signed by Milo Sweet Conversion Cardiopulmonary Technician And Eeg Tech Cerner at 11/06/2022 1:01 PM CDT documented in this encounter Plan of Treatment Not on file documented as of this encounter Visit Diagnoses Not on filedocumented in this encounter Care Teams Feather Washer Relationship Specialty Start Date End Date Matheus Boggs MD [address] [place] [facility] [address] [place] [address] PCP - General Family Medicine 09/05/22 documented as of this encounter
--- OUTSIDE RECORDS SUMMARY | 2025-07-06 09:04 | XMS_ITS | Encounter Summary ---
Author Organization [employer] ([place], [place], [place], [place], [place]) Address [address] [place] [address] Care Team Providers Care Passenger Car Upholsterer Apprentice Name Role Phone Michelet Boggs MD Primary Care Provider + [phone] Encounter Details Date Type Department Care Team (Late st Contact Info) Description 02/01/2020 Transcribed Document [facility] [place] [address] [place] [address] ProviderCristopher MD [address] [place] [address] Social History Tobacco Use Types [...] On: 02/01/2020 17:16 EDT by NAGI TAPIA RN-Rn Practitioner Initial Assessment I Previously Documented Living Environment [...] have PCP Listed? : Yes NAGI TAPIA RN-Rn Practitioner - 02/01/2020 17:16 EDT Initial Assessment II Sensory and Motor Deficits : None Current Home Treatments and Equipment : None Does the Patient have a Floor to SNF Benefit? : No NAGI TAPIA RN-Rn Practitioner - 02/01/2020 17:16 EDT Discharge Needs I Anticipated Discharge Date : 02/01/2020 EDT Anticipated Discharge To, CM : Home with home health Current Home Treatment/Equipment : Current Home Treatment/Equipment No qualifying data available. Post Acute/Home Treatments : Bedside commode, Walker Documentation Status Complete : Yes NAGI TAPIA RN-Rn Practitioner - 02/01/2020 17:16 EDT Discharge Needs II Professional Skilled Services : Professional Skilled Services No qualifying data available. Needs Assistance with Transportation : No Discharge Options Discussed with Patient : DME, Home Health NAGI TAPIA RN-Rn Practitioner - 02/01/2020 17:16 EDT Narrative Note Narrative Note : 74yo female pt s/p RTKA. Met with pt and daughter at bedside this am during MDR. FRW and BSC obtained from [employer] and have been delivered. Referral sent to [facility] (chose in JA class) via [facility] and confirmed acceptance with intake. No other CM needs identified. NAGI TAPIA RN-Rn Practitioner - 02/01/2020 17:16 EDT Electronically signed by Milo Sweet Conversion Commercial [employer] Service Technician Cerner at 11/06/2022 12:50 PM CDT documented in this encounter Plan of Treatment Not on file documented as of this encounter Visit Diagnoses Not on filedocumented in this encounter Care Teams Passenger Car Upholsterer Apprentice Relationship Specialty Start Date End Date Michelet Boggs MD [address] [facility] [address] [place] [address] PCP - General Family Medicine 09/05/22 documented as of this encounter
--- OUTSIDE RECORDS SUMMARY | 2025-07-06 09:04 | XMS_ITS | Encounter Summary ---
Author Organization [employer] ([place], [place], [place], [place], [place]) Address [address] [place] [address] Care Team Providers Care 7Th Grade Teacher Name Role Phone Matheus Boggs MD Primary Care Provider + [phone] Encounter Details Date Type Department Care Team (Late st Contact Info) Description 01/31/2020 Transcribed Document [facility] [place] [address] [place] [address] ProviderCristopher MD [address] [place] [address] Social History Tobacco Use Types [...] Jaida Larios Rn - 01/31/2020 15:31 EDT Electronically signed by Interface, Sjh Conversion Housing And Residence Life Director Cerner at 11/06/2022 1:14 PM CDT documented in this encounter Plan of Treatment Not on file documented as of this encounter Visit Diagnoses Not on filedocumented in this encounter Care Teams 7Th Grade Teacher Relationship Specialty Start Date End Date Matheus Boggs MD [address] [place] [address] PCP - General Family Medicine 09/05/22 documented as of this encounter
--- OUTSIDE RECORDS SUMMARY | 2025-07-06 09:04 | XMS_ITS | Encounter Summary ---
Author Organization [employer] ([place], [place], [place], [place], [place]) Address [address] [place] [address] Care Team Providers Care Digital Marketing Associate Name Role Phone Matheus Boggs MD Primary Care Provider + [phone] Encounter Details Date Type Department Care Team (Late st Contact Info) Description 02/01/2020 Transcribed Document [facility] [place] [address] [place] [address] ProviderCristopher MD [address] [place] [address] Social History Tobacco Use Types [...] - 02/01/2020 12:09 EDT Electronically signed by Kee [facility] Conversion Associate Veterinarian Cerner at 11/06/2022 12:53 PM CDT documented in this encounter Plan of Treatment Not on file documented as of this encounter Visit Diagnoses Not on filedocumented in this encounter Care Teams Digital Marketing Associate Relationship Specialty Start Date End Date Matheus Boggs MD [address] [place] [facility] [address] [place] [address] PCP - General Family Medicine 09/05/22 documented as of this encounter
--- OUTSIDE RECORDS SUMMARY | 2025-07-06 09:04 | XMS_ITS | Clinical Summary ---
Author Organization [facility] Address [address] [place] [address] Care Team Providers Care 3D Artist Name Role Phone Matheus Boggs MD Primary Care Provider Mitchell Oliva MD Unavailable [phone] Allergies Active Allergy Reactions Criticality Noted Date [...] Active fluticasone (FLONASE) 50 mcg/actuation nasal spray Grandy 2 Sprays into nose 2 times daily. [...] Depression Screening 07/21/2024 COVID-19 Vaccine (1 - 2024-2 6 season) 2025 Influenza Vaccination (#1) 2025 Breast Cancer Screening Discontinued 09/10/19 11, 08/28/2009, 08/23/2008, Additional history exists Medical Devices Implanted Type Area Bowling Floor Desk Clerk Device Identifier Shelf Expiration Date Model / Serial / Lot Tissue Matrix [id number] Implanted:Qty: 1 on 09/16/2014 by Mitchell Oliva MD at [facility] Abdomen * Soricimed 05/20/2016 [id number] / / [id number] Procedures Procedure Name Priority Date/Time Associated Diagnosis [...] AXIAL SKELETON (09/29/2000 9:30 AM EST) Narrative [facility] EXTERNAL RAD - 09/29/2000 10:13 [...] fective for All Dates) Name:Eulalia Walker Member ID:[id number] Relation to Subscriber:Self Name:Eulalia Walker Subscriber ID:[id number] Payer ID:[id number] Group ID:Not on file Type:Medicare Address[place] [facility] [place] [facility] [place] [address] [facility] MEDICARE [place] [id number] [facility] Care Teams 3D Artist Relationship Specialty Start Date End Date Matheus Boggs MD [address] [place] [address] [place] [address] PCP - General Family Medicine 09/14/14 Mitchell Oliva MD [facility] [facility] [address] [place] [address] General Surgery 07/28/22
--- OUTSIDE RECORDS SUMMARY | 2025-07-06 09:04 | XMS_ITS | Encounter Summary ---
Author Organization [employer] ([place], [place], [place], [place], [place]) Address [address] [place] [address] Care Team Providers Care Sorority Mother Name Role Phone Matheus Boggs MD Primary Care Provider + [phone] Encounter Details Date Type Department Care Team (Late st Contact Info) Description 01/31/2020 Transcribed Document [facility] [place] [address] [place] [address] ProviderCristopher MD [address] [place] [address] Social History Tobacco Use Types [...] : Yes Joint AcademyType : Online Joint Decating Machine Operator Name : Type of Surgery : Total Knee Replacement, Right Anticipated Discharge Plan : Home Health PT Anticipated Discharge Plan Comment : Patient plans to d/c home with the help of her and requests [place] for home therapy. CHIKA ROBB RN-Ortho Nurse [...] RN-Ortho Nurse Navigator - 01/31/2020 12:55 EDT Electronically signed by Kee [facility] Conversion Woodworking Bench Carpenter Cerner at 11/06/2022 1:13 PM CDT documented in this encounter Plan of Treatment Not on file documented as of this encounter Visit Diagnoses Not on filedocumented in this encounter Care Teams Sorority Mother Relationship Specialty Start Date End Date Matheus Boggs MD [address] [place] [facility] [address] [place] [address] PCP - General Family Medicine 09/05/22 documented as of this encounter
--- OUTSIDE RECORDS SUMMARY | 2025-07-06 09:04 | XMS_ITS | Data Portability ---
Author Organization [facility] Eduardo RAPHINE CLOSED Address [address] [place] [address] Care Team Providers Care Buffing Wheel Raker Name Role Phone DEAN ALVA Orthopedic Surgeon [phone] NUGYEN JANE Primary Care Provider [phone] Assessment No assessment recorded. Plan of Treatment Reminders Order Date Submit Date Provider Last Modified By Organization Details Last Modified Time Details Appointments None recorded. Lab inflammator y bowel disease Ab panel, serum 2023 024 [facility], [address] [place] [address], [id number], 4 07:05:06 celiac disease comprehensi ve panel, serum 2023 024 [facility], [address] [place] [address], [address], 4 11:53:43 ccp (cyclic citrullinat ed peptide) iga+igg, serum 2023 024 [email or web address] [facility], [address] [place] [address], [address], 4 08:24:44 rf (rheumatoid factor), serum 2023 024 [facility], [address] [place] [address], [address], 4 11:53:41 uric acid, serum or plasma 2023 024 [facility], [address] [place], [address], 4 11:53:37 C reactive protein, QN, serum or plasma 2023 024 [facility], [address] [place] [address], [address], 4 11:53:39 ESR (erythrocyt e sedimentati on rate), blood 2023 024 [facility], [address] [place] [address], [address], 4 12:46:20 KEVIN (antinuclea r antibodies) panel, serum 2023 024 [email or web address] [facility], [address] [place] [address], [id number], 4 08:24:45 Referral physical therapist referral - 2.5 years s/p Chris TKA - slight loss of ROM/strengt hening, pain modalites prn, progressive ROM, gait control - please eval and treat 2022 023 [facility], [address], [place], [address], 3 15:24:16 Procedures None recorded. Surgeries None recorded. Imaging XR, wrist + hand 2023 024 [facility], [address] [place], [address], 4 10:58:37 Medication Orders None recorded. Patient TargetsNo targets recorded. Patient Instructions Encounter Date Encounter Id Patient Instructions Last Modified By Organization Details Last Modified Time 10/27/2023 [id number] 1. Mrs. Simon has a history of [...] Refer ence range s are based on [facility] norms and do not neces greg farmer [...] mstan shasta. Arthr itis Care [facility] Vol 64 No 10, 2011 Sola can Colle ge of Rheum atolo gy ----- ----- ----- ----- ----- ----- ----- ----- ----- ----- ----- ---- Not Available [facility] [address] [place] [address], [address], 01/07/2024 11:53:37 01/07/20 24 01/07/2024 C REACT AGA PROTE IN C reactive protein 0.59 mg/dL 0.00-0 .49 high Not Available [facility] [address] [place] [address], [address], 01/07/2024 11:53:39 01/07/20 24 01/07/2024 RF SCREE N, QUANT . rf screen, quant. <10.0 [IU]/ mL 0.0-13 .9 normal Not Available [facility] [address] [place] [address], [address], 01/07/2024 11:53:40 01/07/20 24 01/07/2024 CONNIE C PANEL IgA 165 mg/dL 70-400 normal Not Available [facility] [address] [place] [address], [address], 01/26/2024 12:30:50 01/07/20 24 01/26/2024 CONNIE C PANEL gliadin Ab IgA 1.0 U/mL normal Value Inter preta tion ----- ----- ----- ---- <15.0 Antib dotty not detec bushra > or = 15.0 Antib dotty detec bushra Not Available [facility] [address] [place] [address], [address], 01/26/2024 12:30:50 01/07/20 24 01/26/2024 CONNIE C PANEL gliadin Ab IgG <1.0 U/mL normal Value Inter preta tion ----- ----- ----- ---- <15.0 Antib dotty not detec bushra > or = 15.0 Antib dotty detec bushra Not Available [facility] [address] [place] [address], [address], 01/26/2024 12:30:50 01/07/20 24 01/26/2024 CONNIE C PANEL ttg, IgA <1.0 U/mL normal Value Inter preta tion ----- ----- ----- ---- <15.0 Antib dotty not detec bushra > or = 15.0 Antib dotty detec bushra Not Available [facility] [address] [place] [address], [address], 01/26/2024 12:30:50 01/07/20 24 01/26/2024 CONNIE C PANEL endomysial Ab, IgA NEGATI VE negati ve normal Not Available [facility] [address] [place] [address], [address], 01/26/2024 12:30:50 01/07/20 24 01/07/2024 ESR, AUTOM ATED ESR, automated 11 mm 0-29 normal Not Available [facility] [address] [place] [address], [address], 01/07/2024 12:46:20 01/07/20 24 01/19/2024 INFLA MMATO [...] to S cerev isiae . Not Available [facility] [address] [place], [address], 01/19/2024 10:46:59 01/07/20 24 01/19/2024 INFLA MMATO [...] to S cerev isiae . Not Available [facility] [address] [place], [address], 01/19/2024 10:46:59 01/07/20 24 01/19/2024 INFLA MMATO [...] with Crohn 's disea se. Not Available [facility] [address] [place], [address], 01/19/2024 10:46:59 01/07/20 24 01/19/2024 INFLA MMATO RY BOWEL DISEA SE DIFFE RENTI ATION proteinase-3 Ab <1.0 ai <1.0 normal <1.0 AI No Antib dotty Detec bushra > or = 1.0 AI Antib dotty Detec bushra Autoa ntibo dies to prote inase -3 (IN-3 ) are accep bushra as romeo cteri stic for granu lomat osis with polya ngiit is (GPA, Wegen er's) , and are detec table in 95% of the histo logic ally prove n cases . The cytop lindsey torres IFA shyam rn, (c-AN CA), is based large ly on autoa ntibo dy to IN-3 which serve s as the prima ry antig en. These autoa ntibo dies are prese nt in activ e disea se. Not Available [facility] [address] [place], [address], 01/19/2024 10:46:59 01/07/20 24 01/19/2024 INFLA MMATO [...] in activ e disea se. Not Available [facility] [address] [place] [address], [address], 01/19/2024 10:46:59 01/07/20 24 01/19/2024 KEVIN REFLE X COMME NT KEVIN reflex comment see below normal REFLE X TESTI NG IN PROGR ESS INCLU KD: Anti- DNA (ds) Ab, SM/RN P Abs, SS-A/ SS-B Abs, and Scler oderm a Ab Testi ng could take up to 7 days to compl ete. Not Available [facility] [address] [place] [address], [address], 01/19/2024 10:49:46 01/07/20 24 01/26/2024 ANTI- CCP anti-ccp <16 units normal Refer ence Range Negat aga: <20 Weak Posit aga: 20-39 Moder ate Posit aga: 40-59 Stron g Posit aga: >59 Not Available [facility] [address] [place], [address], 01/26/2024 12:30:47 01/07/20 24 01/26/2024 KEVIN W/ [...] nolvia yoon, césar e refer to http: //[facility] elise yoon.Que stDia gnost ics.c om/fa q/FAQ 177 (This link is being provi ded for infor matio nal/ educa david l purpo ses only. ) Not Available [facility] [address] [place] [address], [address], 01/26/2024 12:30:49 01/07/20 24 01/26/2024 KEVIN W/ REFLE X KEVIN titer 1:80 titer high A low level KEVIN titer may be prese nt in pre-c linic al autoi mmune disea ses and rashawn l indiv idual s. Refer ence Range <1:40 Negat aga 1:40- 1:80 Low Antib dotty Level >1:80 [place] bushra Antib dotty Level Not Available [facility] [place], [address], 01/26/2024 12:30:49 01/07/20 24 01/26/2024 KEVIN W/ [...] g/10. 1515/ cclm- 2017- 0052) Not Available [facility] [address] [place] [address], [address], 01/26/2024 12:30:49 01/07/20 24 01/19/2024 KEVIN REFLE X TESTI NG DNA (ds) Ab NEGATI VE negati ve normal Not Available [facility] [address] [place] [address], [address], 01/19/2024 10:50:08 01/07/20 24 01/19/2024 KEVIN REFLE X TESTI NG sm antibody <1.0 NEG ai <1.0 neg normal Not Available [facility] [address] [place] [address], [address], 01/19/2024 10:50:08 01/07/20 24 01/19/2024 KEVIN REFLE X TESTI NG sm/spd manager Ab <1.0 NEG ai <1.0 neg normal Not Available [facility] [address] [place] [address], [address], 01/19/2024 10:50:08 01/07/20 24 01/19/2024 KEVIN REFLE X TESTI NG ss-A Ab <1.0 NEG ai <1.0 neg normal Not Available [facility] [address] [place] [address], [address], 01/19/2024 10:50:08 01/07/20 24 01/19/2024 KEVIN REFLE X TESTI NG ss-B Ab <1.0 NEG ai <1.0 neg normal Not Available [facility] [address] [place] [address], [address], 01/19/2024 10:50:08 01/07/20 24 01/19/2024 KEVIN REFLE X TESTI NG scleroderma Ab <1.0 NEG ai <1.0 neg normal Not Available [facility] [address] [place] [address], [address], 01/19/2024 10:50:08 01/07/20 24 01/26/2024 KEVIN REFLE X TESTI NG DNA (ds) Ab NEGATI VE negati ve normal Not Available [facility] [address] [place] [address], [address], 01/26/2024 12:30:52 01/07/20 24 01/26/2024 KEVIN REFLE X TESTI NG sm antibody <1.0 NEG ai <1.0 neg normal Not Available [facility] [address] [place] [address], [address], 01/26/2024 12:30:52 01/07/20 24 01/26/2024 KEVIN REFLE X TESTI NG sm/spd manager Ab <1.0 NEG ai <1.0 neg normal Not Available [facility] [address] [place] [address], [address], 01/26/2024 12:30:52 01/07/20 24 01/26/2024 KEVIN REFLE X TESTI NG ss-A Ab <1.0 NEG ai <1.0 neg normal Not Available [facility] [address] [place] [address], [address], 01/26/2024 12:30:52 01/07/20 24 01/26/2024 KEVIN REFLE X TESTI NG ss-B Ab <1.0 NEG ai <1.0 neg normal Not Available [facility] [address] [place] [address], [address], 01/26/2024 12:30:52 01/07/20 24 01/26/2024 KEVIN REFLE X TESTI NG scleroderma Ab <1.0 NEG ai <1.0 neg normal Not Available [facility] [address] [place] [address], [address], 01/26/2024 12:30:52 03/20/20 23 03/20/2023 XR, knee, 3 view [place] [facility] [address] [address] Mary phelps Name: CLEMENT phelps : 1944 [...] Effie xie MD on 023 1:12 PM [email or web address] [facility] [place] [address], [place], [address], 04/03/2023 09:00:09 10/28/19 24 10/11/2021 audio gram, pure tone thres hold No observ ation record ed. BARCODE Not Available 2023 09:50:18 01/07/20 24 01/07/2024 [facility] [address] [address] Mary phleps Name: CLEMENT phelps : 1944 Mary phelps [...] . Interp reted By: Effie xie MD [facility] onical ly Signed By: Effie xie MD on 024 10:53 AM [email or web address] [facility] [address] [facility], [place], [address], 01/08/2024 11:19:34 02/23/20 24 02/23/2024 [facility] [address] [address] Patien t Name: CLEMENT Hernandez t : [...] ing. Interp reted By: Effie xie MD [facility] onical ly Signed By: Effie xie MD on 02/23/20 24 8:55 AM [email or web address] [facility] [address] , [place], [address], 02/23/2024 09:12:09 Result Notes Documentation Provider Name and Address Organization Details Recorded Time Xr, Knee, 3 View : [facility] [address] [place] [address] Patient Name: CLEMENT SIMON Patient : 1945 [...] By: Xander Black MD A VEGA PA-C [address] [place] [address], [address] 04/03/2023 09:00:09 Xr, Wrist + Hand : [address] [place] [address] Patient Name: CLEMENT SIMON Patient : 1945 [...] Interpreted By: Xander Black MD Poppy dean (Nicole)[facility] 01/08/2024 11:19:34 Xr, Knee, 3 View : [facility] [place] [address] [place] [address] Patient Name: CLEMENT SIMON Patient : 1945 [...] Xander Black MD Y GÓMEZ PA-C [address] [place], [address], [facility] 02/23/2024 09:12:09 Problems Name Problem SNOMED Code Status Onset Date Resolution Date Notes Provider Name and Address Organization Details Recorded Time History of total knee arthroplast y 1392948972623 Active 2020 DEAN SAUNDERS MD [address] [place] [address], [address], [facility] 17:00:28 Lumbar radiculopat hy 578587011 Active 2021 MASTER FLOWERS PA-C [address] [place] [address], [address], [facility] 2 09:50:24 Problem Notes None recorded. Procedures Surgical History Date Name Laterality Status Provider Name and Address Organization Details Recorded Time 02/21/20 21 Injection - Joint/Bursa, Major completed ANITA VEGA PA-C [address] [place], [address], [facility] 02/20/2021 10:37:26 05/09/20 20 Injection - Joint/Bursa, Major completed Radha Gallegos [facility] 05/09/2020 14:15:35 01/31/20 20 Total knee arthroplasty completed Radha Gallegos [facility] 03/14/2020 15:21:15 01/13/20 20 Ingestion Challenging completed AMINAH CHRISTIAN MD [address] [place] [address], [address], [facility] 01/14/2020 11:15:32 01/13/20 20 Allergy Skin Testing/Drug or Biologics completed AMINAH CHRISTIAN MD [address] [place] [address], [address], [facility] 01/14/2020 11:15:50 12/29/19 20 Injection - Joint/Bursa, Major completed Lisa Carrasco [facility] 12/28/2019 10:19:36 10/06/19 20 Injection - Joint/Bursa, Major completed Lisa Danilo [facility] 10/05/2019 15:37:04 07/15/20 19 Injection - Joint/Bursa, Major [place], [address], [facility] 07/15/2019 10:24:17 01/09/20 19 Injection - Joint/Bursa, Major [place], [address], [facility] 01/08/2019 14:45:10 11/06/19 17 Injection - Joint/Bursa, Major completed Bessie DANGELO PA-C [address] [place], [address], [facility] 11/05/2016 13:53:47 Total hysterectomy completed [facility] 11/05/2016 13:16:20 Thyroid uptake measurement completed [facility] 11/05/2016 13:16:47 Other completed [facility] 11/05/2016 13:18:07 Unlisted px phrnx adnd/tnsl completed [facility] 11/05/2016 13:17:31 Orthopedic Surgery completed [facility] 11/05/2016 13:18:33 Hernia repair w/mesh completed [facility] 11/05/2016 13:18:45 section completed [facility] 10/27/2023 08:47:45 appendectomy completed [facility] 10/27/2023 08:47:58 ligation of fallopian tube completed [facility] 10/27/2023 08:48:12 functional endoscopic sinus surgery completed [facility] 10/27/2023 08:48:45 total knee replacement completed Evelin Talavera [facility] 01/07/2024 09:50:51 Imaging Results None recorded. Procedure Notes None recorded. Medical Equipment None Reported. Allergies Allergen ID Allergen Name Allergen Category Reaction Reaction Severity Criticality Documentation Date Start Date Code Code System Note Provider Name and Address Organization Details Recorded Time 550771 penicilla mine medicatio n Not available Not available Not available 11/05/2016 7975 RxNorm AMINAH CHRISTIAN MD [address] [place] [address], [address], [facility] 0 11:17:45 353080 codeine medicatio n Not available Not available Not available 11/05/2016 2670 RxNorm Daycatrina Eilse [facility] 7 13:13:10 920804 aspirin medicatio n Not available Not available Not available 11/05/2016 1191 RxNorm Day Elise [facility] 7 13:13:30 352428 Keflex medicatio n Not available Not available Not available 11/05/2016 46938 7 RxNorm Daycatrina Elise [facility] 7 13:13:36 379657 Non-stero idal anti-infl ammatory agent (substanc e) medicatio n Not available Not available Not available 10/27/2023 69077 5008 SNOMED Patrice Donaldson [facility] 4 08:36:18 800718 Terramyci n medicatio n Not available Not available Not available 10/27/2023 00864 4 RxNorm Patrice Donaldson [facility] 4 08:36:50 033475 Percodan medicatio n Not available Not available Not available 10/27/2023 21773 RxNorm Patrice Donaldson [facility] 4 08:37:18 082408 Bactrim medicatio n Not available Not available Not available 10/27/2023 23012 9 RxNorm Patrice Donaldson [facility] 4 08:46:49 Medications Name Sig Start Date Stop Date Status Note LastModified by Organization Details LastModified Time gentamicin 60mg xylitol capsule [14137] MIX THE CONTENTS OF 1 OF EACH CAPSULE WITH DILUENT. APPLY TO AFFECTED AREAS. PERFORM TWICE DAILY. active Not Available Not Available No t Available clindamycin /mupirocin/ itraconazol e 150/20/50mg topical capsule [09329] MIX THE CONTENTS OF 1 OF EACH [...] Updated DateTime 4 154.94 cm 34.1 kg/m2 51721.0 3 g 97.9 [degF] 58 /min 144/62 mm[Hg] Patrice Donaldson [facility] 4 08:42:15 Date Recorded Body height Body mass index (BMI) Body weight Heart rate Oxygen saturation Systolic And Diastolic Provider Name and Address Organization Details Last Updated DateTime 4 154.94 cm 33.1 kg/m2 21924.6 6 g 57 /min 97 % 128/80 mm[Hg] Evelin Talavera [facility] 09:53:11 Date Recorded Body height Body mass index (BMI) Body weight Provider Name and Address Organization Details Last Updated DateTime 02/23/2024 154.94 cm 33.1 kg/m2 04499.66 g Kristen Perera [facility] 02/23/2024 08:40:16 Date Recorded Body height Provider Name an d Address Organization Details Last Updated DateTime 03/20/2023 154.94 cm Lisa Carrasco [facility] 0 03/20/2023 12:57:41 Date Recorded Body height Body mass index (BMI) Body weight Heart rate Systolic And Diastolic Provider Name and Address Organization Details Last Updated DateTime 04/15/2022 154.94 cm 34 kg/m2 12577.63 g 60 /min 167/64 mm[Hg] Fay West [facility] 04/15/2022 09:18:02 Social History Question Answer Notes LastModified by Organizat ion Details LastModified Time Tobacco Smoking Status [facility] 11/05/2016 13:15:26 Accident Related Injury No [email or web address] Information not available 11/05/2016 What Is Your Level Of Caffeine Consumption? Moderate [email or web address] Information not available 11/05/2016 Which Of Your Hands Is Dominant? Right Information not available 11/05/2016 Have You Been Treated For This Problem Before? No [email or web address] Information not available 11/05/2016 Will This Be Filed As Workers' Compensation? No [email or web address] Information not available 11/05/2016 Marital Status [email or web address] Informati on not available 11/05/2016 What Was The Date Of Your Most Recent Tobacco Screening? 01/07/2024 [email or web address] Information not available 01/07/2024 Has Tobacco Cessation Counseling Been Provided? No [email or web address] Information not available 11/05/2016 Work Related Injury? No [email or web address] Information not available 11/05/2016 Sex: Unknown Functional Status Question Answer Note LastModified by Organizat ion Details LastModified Time Do you use any illicit or recreational drugs? No [email or web address] Information not available 11/05/2016 What is your level of alcohol consumption? None [email or web address] Information not available 11/05/2016 Are you currently employed? No [email or web address] Information not available 11/05/2016 What is your occupation? Retired [email or web address] Information not available 11/05/2016 Mental Status None [...] 12:50:42 Medical History Condition Response Allergies/Hayfever N Other N Gout N Anxiety/Depression N Thyroid Disease N Heart Conditions N Kidney Stones N Hernia N Migraines N COPD N Glaucoma N Pneumonia N Skin Problems N Immune System Disorder N Anesthesia Complications N Heart Attack (OK) N Mental Illness N Neurological Problems N [...] ICD10 Code Diagnosis IMO Codes Diagnosis Note [id number] Bessie DANGELO PA-C [facility] [address] [place] [address] 11/05/2016 12:46:48 11/05/2016 13:59:49 Knee pain 76128982 M25.562 M25.561 Osteoarthr itis of knee 938670874 M17.0 injected left, no NSAID's due to allergy [id number] Bessie DANGELO PA-C [facility] [address] [place] [address] 01/08/2019 13:06:07 01/08/2019 14:58:25 Knee pain 95955558 M25.562 M25.561 Bilateral knee arthritis and left [...] meloxicam today. Greater tr ochanteric pain syndrome 6513740 M70.60 [id number] Bessie DANGELO PA-C [facility] [address] [place] [address] 07/15/2019 09:38:07 07/15/2019 10:31:47 Osteoarthritis of knee 634334094 M17.0 Worsening arthritis in the right knee. Unilateral CSI today in follow-up for contralate ral. Discussed with PCP about increasing meloxicam from 7.5-15 mg daily. Continue conservati ve measures until quality-of -life deems arthroplas ty is appropriat e [id number] DEAN Yoon MD [facility] [address] [address] 08/24/2019 14:25:54 08/24/2019 16:38:01 Knee pain 08043410 M25.561 Osteoarthr itis of knee 166840932 M17.9 Allergy to cephalosporin 357945385 Z88.1 [id number] Bessie DANGELO PA-C [facility] [address] [address] 10/06/2019 09:32:08 10/06/2019 09:53:04 Osteoarthritis of knee 808498491 M17.0 [id number] Besise DANGELO PA-C [facility] [address] [address] 12/29/2019 09:37:47 12/29/2019 10:22:26 Osteoarthritis of knee 797822418 M17.0 [id number] AMINAH CHRISTIAN MD [facility]ERGY [address] [facility] [address] [place] [address] 01/13/2020 13:25:08 01/18/2020 09:37:32 Allergic rhinitis 06200769 J30.9 antihistam ine PRN Adverse re action to drug 77606971 T50.905A negative skin test to cefazolin ok to use IV cefazolin as prophylaxi s Allergy to penicillin 91 305534 Z88.0 No IgE mediated reaction to penicillin [...] patient as well. Osteoarthr itis of knee 621501795 M17.9 follow up with ortho [id number] DEAN Yoon MD SURGERY SCHEDULE [address] [place] [address] 02/07/2020 11:57:27 02/07/2020 14:06:47 [id number] Bessie DANGELO PA-C [facility] [address] [place] [address] 02/21/2020 14:48:42 02/21/2020 15:35:49 Postoperative care 911944941 Z48.89 Patient should continue with home health [...] driving when she reaches 115 of flexion [id number] MD MELINA NINOEDI [facility] [address] [place] [address] 03/14/2020 14:39:02 03/14/2020 16:03:24 History of total knee arthroplasty 1482993358 105 Z96.820 [id number] DEAN Yoon MD [facility] [address] [place] [address] 05/09/2020 14:00:53 05/09/2020 15:24:26 History of total knee arthroplasty 3646377871 105 Z96.651 Osteoarthr itis of knee 611838784 M17.12 [id number] MD SABRINA NINOI [facility] [address] [place] [address] 09/21/2020 12:01:11 09/21/2020 13:48:20 Osteoarthritis of knee 651034609 M17.12 History of total knee arthroplasty 0432356626 105 Z96.698 [id number] DEAN Yoon MD SURGERY SCHEDULE [address] [place] [address] 11/06/2020 09:58:54 11/07/2020 07:55:38 [id number] ANITA VEGA PA-C [facility] [address] [place] [address] 11/28/2020 14:28:40 11/28/2020 15:48:08 History of total knee arthroplasty [id number] 105 Z96.659 1. Patient is 3 weeks status post left knee arthroplas ty. She is doing well at this time. Continue with DVT prophylaxi s as instructed . She will transition to outpatient physical therapy at [facility]. Patient is allowed to drive at this current time since she is taking no pain medication . She'll follow up in 3-[address] Jodie yoon. [id number] MD MELINA NINOEDI CS [facility] CLOSED [address] [place] [facility] 12/26/2020 15:14:23 12/26/2020 16:59:18 History of total knee arthroplasty [id number] 105 Z96.240 [id number] ANITA VEGA PA-C [facility] CL[facility]ED [address] [place] [address] 02/20/2021 09:21:07 02/20/2021 10:27:30 Low back pain [id number] M54.5 2. Refer to physical therapy for back and hip discomfort . History of total knee arthroplasty [id number] Z96.659 1. assessment : Status post [...] Pes anseri nus bursitis of left knee [id number] M70.52 [id number] ANITA VEGA PA-C [facility] CLOSED [address] [place] [address] 02/21/2022 09:32:31 02/21/2022 11:05:57 History of bilateral knee arthroplasty [id number] 807241 Z96.653 Assessment : History of bilateral knee arthroplas ty Plan: Doing great. Controvers ies surroundin g dental prophylaxi s reviewed. NSAIDs prn for residual pain/swell ing. Routine f/u at 2 years, or prn. Localized swelling, mass and lump, neck [id number] R22.1 Patient is experienci ng swelling of the left side of her neck directly at the supraclavi cular area. There is no palpable nodule or mass, however there is prominent swelling in comparison the contralate ral side. I do believe this is necessary to work-up but will defer to PCP. [id number] DIOGO PETERS, REVERSE ENGINEER NEUROSURG LAWANDA COOK [facility] CLOSED [address] [place] [address] 03/05/2022 12:43:04 03/05/2022 15:40:27 Lumbar radiculopathy [id number] M54.16 HPI: Ms. Simon is a 76-year-ol [...] both. She had a lumbar MRI from [facility] on May 31, 2021. She does feel that her symptoms have progressed since that study was completed. ASSESSMENT : Low back pain with radiation to the left lower extremityI ANGELA: I have read the radiologis t's report [...] plan of care. Thanks for the referral. [id number] MASTER FLOWERS PA-C NEUROSURG LAWANDA CHI [facility] CLOSED [address] [place] [address] 04/15/2022 08:32:16 04/17/2022 14:59:01 Lumbar radiculopathy [id number] M54.16 76-year-ol d female with worsening left lumbar radiculopa thy. I reviewed the imaging CD provided lumbar MRI and flexion and extension x-rays that was performed at [facility] with Dr. Pickering. This shows mild-to-mo derate [...] with our service as needed moving forward. [id number] ANITA VEGA PA-C [facility]I [facility] [address] [place] [address] 03/20/2023 12:47:41 03/20/2023 13:43:11 History of bilateral knee arthroplasty [id number] 780402 Z96.653 Assessment : History of bilateral knee [...] Follow-up in 1 year or as needed. 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 - SRTs of 30 dcB in each ear, 88 % WDS's Dysfunctio n of eustachian tube 41678321 H69.92 -10/27/2023 n ormal otoscopic exam; otalgia [...] extra strength Tylenol twice daily Neck pain 73175992 M54.2 Otalgia of left ear 1010 060919 H92.02 -10/27/2023 n ormal otoscopic exam; otalgia [...] extra strength Tylenol twice daily Allergic rhinitis 769025 04 J30.9 Was on allergy 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 for several years 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 but these were discontinu ed a year or 2 ago when she started on a beta-block er for hypertensi on [id number] CHRISTINA NUR APRN RHEUMATOL OGY [address] [place] [address] 01/07/2024 08:25:19 01/08/2024 04:34:47 Pain of bilateral hands [id number] 5954434 M79.641 M79.642 without synovitis, no dactylitis , no joint effusionsn o skin changes or rashesnorm al skin turgorno swelling, redness, tenderness alonewill assess an arthritis panel Chronic diarrhea 4099819 09 K52.9 she has bouts of colitis and has a grandson with crohns disease [id number] HENRY GÓMEZ PA-C ORTHOPEDI [facility] CL[facility] [address] [place] [address] 02/23/2024 08:38:21 02/23/2024 09:07:26 History of bilateral knee arthroplasty [id number] 732601 Z96.653 Assessment : History of bilateral knee [...] 02/24/2024 2 [employer] (MEDICARE SUPPLEMENT) Clement Simon [id number] Clement Simon 09/04/2023 2 AARP (MEDICARE SUPPLEMENT) Clement Simon [id number] Clement Simon 02/20/2024 1 [place]IC[place] Clement Simon [id number] Clement Simon 03/20/2023 2 [employer] (MEDICARE SUPPLEMENT) Clement Simon [id number] Clmeent Simon Notes Date Note Type Note Provider [...] in bowel bladder control. MASTER FLOWERS PA-C [address] [place], [address], [facility] 04/15/2022 09:52:48 03/20/2023 text/html 03-20-23Mrmichelle Simon returns [...] her previous right TKA. ANITA VEGA PA-C [facility] [place], [address], [facility] 03/20/2023 14:21:02 10/27/2023 text/html Clement Kimbelry Simon (78F) visits our office for an evaluation for left otalgia. Recent dental scans performed were normal. She reports pain on her left side from her neck to her ear. 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 She wears hearing aids from [employer], but has been avoiding them since her otalgia issues. 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 These were discontinued because of placement on a beta-rahel for hypertension. MALIK RICO MD [facility] [place], [address], [facility] 10/27/2023 09:26:20 01/07/2024 text/html ROS as noted [...] has crohns; all others are negative CHRISTINA NUR, REVERSE ENGINEER [address] [place], [address], [place] [facility] 01/27/2024 15:20:01 02/23/2024 text/html 02/23/24Patient is here [...] previous right TKA. HENRY GÓMEZ PA-C [address] [place], [address], [facility] 02/23/2024 09:09:03 OBGyn Episode No OBEpisode recorded.
--- OUTSIDE RECORDS SUMMARY | 2025-07-06 09:04 | XMS_ITS | Encounter Summary ---
Author Organization [email or web address] ([place], [place], [place], [place], [place]) Address [address] [place] [address] Care Team Providers Care Patternmaker Pressure Cast Name Role Phone Matheus Boggs MD Primary Care Provider + [phone] Encounter Details Date Type Department Care Team (Late st Contact Info) Description 01/31/2020 Transcribed Document [facility] Family Medicine [address] [place] [address] ProviderCristopher MD [address] [place] [address] Social History Tobacco Use Types [...] Cerner Conversion Note - Historical ProviderMD - 01/31/2020 2:36 PM CDT Treatment [...] Phillips STUDENT-OCCUPATIONAL THERAPIST - 02/01/2020 13:08 EDT Custodial Goals, OT Grooming LTG Grid Goal #1 [...] ADLs. Equipment included long handled shoe horn, carbonating stone cleaner, sock aid, and leg all around patternmaker. Pt verbalized understanding of equipment. Pt donned [...] on filedocumented in this encounter Care Teams Patternmaker Pressure Cast Relationship Specialty Start Date End Date Matheus Boggs MD [address] [place] [facility] [address] [place] [address] PCP - General Family Medicine 09/05/22 documented as of this encounter
--- OUTSIDE RECORDS SUMMARY | 2025-07-06 09:04 | XMS_ITS | Clinical Summary ---
Author Organization [employer] ([place], [place], [place], [place], [place]) Address [address] [place] [address] Care Team Providers Care Ui Application Developer Name Role Phone Matheus Boggs MD Primary Care Provider [phone] Allergies Active Allergy Reactions Criticality Noted Date Comments Aspirin 10/04/2013 Sulfamethoxazole-Trimethoprim 2014 Codeine Phosphate 10/04/2013 Nsaids (Non-Steroidal Anti-I nflammatory Drug) 10/04/2013 Oxycodone 10/04/2013 Penicillin 10/04/2013 Oxycodone-Aspirin 10/04/2013 Btpkgda-Zip-Gbp Reductase Inhibitors 10/04/2013 Sulfa (Sulfonamide Antibiotics) 09/18 [...] abnormal study. Mild anterior reversibility. EF 81%. [facility] 03/03/2012: Patent coronaries. Mild CAD. EF [...] Date Dakotah rded Speak language other than Japanese at home Not on file 08/08/2023 Want [...] DXA SCAN 1945 Depression Screening (12+) 1957 Shingles Vaccine (Zoster) (1 of 2) 1995 [...] T d or Tdap) 01/07/2027 01/07/2017 [place] [address] MEDICARE PART A B [facility] MCR SUPP [facility] CLAIMS Care Teams Ui Application Developer Relationship Specialty Start Date End Date Matheus Boggs MD [address] [facility] [address] [place] [address] PCP - General Family Medicine 09/05/22
--- OUTSIDE RECORDS SUMMARY | 2025-07-06 09:04 | XMS_ITS | Encounter Summary ---
Author Organization [employer] ([place], [place], [place], [place], [place]) Address [address] [place] [address] Care Team Providers Care Sales Compensation Analyst Name Role Phone Matheus Boggs MD Primary Care Provider [phone] Encounter Details Date Type Department Care Team (Late st Contact Info) Description 02/01/2020 Transcribed Document [facility] Family Medicine [address] [place] [address] ProviderCristopher MD [address] [place] [address] Social History Tobacco Use Types [...] Conversion Note - Historical ProviderMD - 02/01/2020 6:21 AM CDT Patient: MARY WALKER V Age: 74 Years Sex: Female : 1945 Admit Date 01/31/2020 10:45 Discharge Date 02/01/2020 Primary Care Provider MATHEUS BOGGS (REF) T [...] mg, Oral, BID allerlgy shots 1, SubCutaneous, W9Wpboc Arnuity Ellipta 100 mcg, PRN, Inhalation, N66IVce aspirin 81 mg oral tablet 81 mg = 1 Tab, Oral, BID Colace 100 mg oral capsule 100 mg = 1 Cap, PRN, Oral, BID ferrous gluconate 324 mg (37.5 mg elemental iron) oral tablet 324 mg = 1 Tab, Oral, Daily fexofenadine 180 mg, Oral, Daily fluticasone 50 mcg/inh nasal spray 2 [place], PRN, Nasal, BID hydrochlorothiazide-irbesartan 12.5 mg-150 mg [...] on Discharge Stable Consulting Physicians BOBBI GERARDO MD-ANS GLADIS HARRIS MD-INT Current Diet Order Diet, Adult - [...] 3. Pending Labs In Process SENDOUT REPORT [id number], [id number], RT - Routine, 01/31/20 10:41:00 EDT Pathology Tissue Request [id number], [id number], 01/31/20 10:41:00 EDT, Collected, RT - Routine, [...] on Discharge 20 minutes Electronically signed by Kee [facility] Conversion Wax Pattern Assembler Cerner at 11/06/2022 12:48 PM CDT documented in this encounter Plan of Treatment Not on file documented as of this encounter Visit Diagnoses Not on filedocumented in this encounter Care Teams Sales Compensation Analyst Relationship Specialty Start Date End Date Matheus Boggs MD [address] [place] [id number] PCP - General Family Medicine 09/05/22 documented as of this encounter
--- OUTSIDE RECORDS SUMMARY | 2025-07-06 09:04 | XMS_ITS | Encounter Summary ---
Author Organization [employer] ([place], [place], [place], [place], [place]) Address [address] [place] [address] Care Team Providers Care Firepot Operator And Tender Name Role Phone Matheus Boggs MD Primary Care Provider [phone] Encounter Details Date Type Department Care Team (Late st Contact Info) Description 01/31/2020 Transcribed Document [facility] Radiology [address] [place] [id number] Lizz Gonzalez MD [facility] [place] [address] Social History Tobacco Use Types Packs/Day Years [...] Diagnosis Osteoarthritis right knee *Surgeon(s) Surgeon: Carlos Steamer Operator: Lorenzo *Procedure Narrative Patient identified in the [...] The cruciates were resected. Next, distal femoral transport pilot hole was drilled and the intramedullary [...] with a Bovie. Femur was sized. The CallYour[employer]on gap flour blender helper was placed and tensed. Posterior condyle resection as noted above. Drill holes made through the flour blender helper and the appropriately sized four-in-one block placed [...] on filedocumented in this encounter Care Teams Firepot Operator And Tender Relationship Specialty Start Date End Date Matheus Boggs MD [address] [place] [facility] [address] [place] [address] PCP - General Family Medicine 09/05/22 documented as of this encounter
--- OUTSIDE RECORDS SUMMARY | 2025-07-06 09:04 | XMS_ITS | Encounter Summary ---
Author Organization [employer] ([place], [place], [place], [place], [place]) Address [address] [place] [address] Care Team Providers Care Remanufacturing Technician Name Role Phone Matheus Boggs MD Primary Care Provider + [phone] Encounter Details Date Type Department Care Team (Late st Contact Info) Description 01/13/2020 Transcribed Document [facility] [place] Medicine [address] [place] [address] ProviderCristopher MD [address] [place] [address] Social History Tobacco Use Types [...] assessment Pain Scale Goal : 6 FAROOQ SAVAEG RN - 01/13/2020 10:05 EDT Height and Weight, Clinical Dosing Height Source : Measured Height Entry Format : [place] Height, Feet : 5 ft(Converted to: 152 cm, 60 Inch) Height, Inches : 1.5 Inch(Converted to: 0 ft 2 Inch, 3.81 cm) Clinical Height : 156.21 cm Weight Source : Standing scale Weight Entry Format : [place] Clinical Dosing Weight : 78.32 kg Weight, Pounds : 172 lb Weight, Ounces : 5 oz Body Surface Area (BSA) : 1.79 m2 Body Mass Index : 32.1 kg/m2 (HI) [place] Body Weight : 49 kg FAROOQ SAVAGE [...] Directive Type : Medical durable power of attorney law clerk (proxy) FAROOQ SAVAGE RN - 01/13/2020 10:05 EDT Spiritual/Cultural Needs Any Spiritual/Cultural Needs or Requests : Yes Spiritual/Cultural Needs Comment : surgery on time in to be determioned Spiritual/Cult Concerns/Desires/Needs : Prayer Spiritual/Cultural Needs Comment : surgery on y 13 time in to be determioned FAROOQ SAVAGE RN - 01/13/2020 10:05 EDT [place] Suicide Severity Rating Scale (C-SSRS) CSSRS Past [...] Patient Arrival Date/Time : 01/31/2020 7:01 EDT Marker Assembler Needed : [place] Baird RN - 01/31/2020 7:56 EDT Arrived From : Home Mode of Arrival on Unit : Ambulatory FAROOQ SAVAGE RN - 01/13/2020 10:23 EDT Legal Guardian : Daughter, Unaccompanied [place] Macdonald RN - 01/31/2020 7:56 EDT Support Person/Patient Client Service Supervisor : Yes Support Person/Pt Rep Name : Lili White - dtr Fay Reese - dtr Support Person/Pt Rep Contact Information : [phone] Want Family/Rep/Phys Notified of Admit : No Emergency Contact #1 : Lili White Emergency Contact #1 Emergency Contact #1 Relationship : dtr Emergency Contact #2 : Fay Reese Emergency Contact #2 Emergency Contact #2 Relationship : dtr Information Obtained From : Patient Primary Language : Burundian Preferred Communication Mode : Verbal Communication Barrier : None Objects to Sharing Info w Family : No Clinical Trials Participant *Q : None CTP, None *Q : Yes FAROOQ SAVAGE RN - 01/13/2020 10:23 EDT Mohan Scale Mohan Sensory Perception : No impairment Mohan Moisture : Rarely moist Mohan Activity : Walks occasionally Mohan Mobility : No limitation Mohan Nutrition : Adequate Omhan Friction and Shear : No apparent problem [...] - 01/13/2020 10:23 EDT Electronically signed by Kee [facility] Conversion Camera Prototyping Engineer Cerner at 11/06/2022 1:09 PM CDT documented in this encounter Plan of Treatment Not on file documented as of this encounter Visit Diagnoses Not on filedocumented in this encounter Care Teams Remanufacturing Technician Relationship Specialty Start Date End Date Matheus Boggs MD [address] [place] [facility] [address] [place], [place] [address] PCP - General Family Medicine 09/05/22 documented as of this encounter
--- OUTSIDE RECORDS SUMMARY | 2025-07-06 09:05 | XMS_ITS | Referral Summary ---
Author Organization [employer] ([place], [place], [place], [place], [place]) Address [address] [place] [address] Care Team Providers Care Motor Bike Mechanic Name Role Phone Matheus Boggs MD Primary Care Provider [phone] Allergies Active Allergy Reactions Criticality Noted Date Comments Aspirin 10/04/2013 Sulfamethoxazole-Trimethoprim 2014 Codeine Phosphate 10/04/2013 Nsaids (Non-Steroidal Anti-I nflammatory Drug) 10/04/2013 Oxycodone 10/04/2013 Penicillin 10/04/2013 Oxycodone-Aspirin 10/04/2013 Gurpuvp-Pjj-Tmb Reductase Inhibitors 10/04/2013 Sulfa (Sulfonamide Antibiotics) 09/18 [...] abnormal study. Mild anterior reversibility. EF 81%. [facility] 03/03/2012: Patent coronaries. Mild CAD. [...] Date Dakotah rded Speak language other than Luxembourgish at home Not on file 08/08/2023 Want [...] on file Insurance MEDICARE PART A B [facility] Care Teams Motor Bike Mechanic Relationship Specialty Start Date End Date Matheus Boggs MD [address] [facility] [address] [place] [address] PCP - General Family Medicine 09/05/22
--- OUTSIDE RECORDS SUMMARY | 2025-07-06 09:05 | XMS_ITS | Encounter Summary ---
Author Organization [employer] ([place], [place], [place], [place], [place]) Address [address] [place] [address] Care Team Providers Care Cylinder Checker Name Role Phone Matheus Boggs MD Primary Care Provider + [phone] Encounter Details Date Type Department Care Team (Late st Contact Info) Description 02/07/2020 Transcribed Document [facility] Family Medicine [address] [place] [address] ProviderCristopher MD [address] [place] [address] Social History Tobacco Use [...] Cerner Conversion Note - Historical ProviderMD - 02/07/2020 3:21 PM CDT Discharge [...] DANGELO PA-ORT - 03:30 PM Previously Documented Halfway Patient Stated Goal : No Patient Stated Goal Tere Carrasco RN-Navigator - 02/07/2020 15:21 EDT documented in this encounter Plan of Treatment Not on file documented as of this encounter Visit Diagnoses Not on filedocumented in this encounter Care Teams Cylinder Checker Relationship Specialty Start Date End Date Matheus Boggs MD [address] [place] [facility] [address] [place] [address] PCP - General Family Medicine 09/05/22 documented as of this encounter
--- OUTSIDE RECORDS SUMMARY | 2025-07-06 09:05 | XMS_ITS | Encounter Summary ---
Author Organization [employer] ([place], [place], [place], [place], [place]) Address [address] [place] [address] Care Team Providers Care Dulser Name Role Phone Matheus Boggs MD Primary Care Provider + [phone] Encounter Details Date Type Department Care Team (Late st Contact Info) Description 10/17/2020 Transcribed Document [facility] Family Medicine [facility] [place] [address] ProviderCristopher MD [address] [place] [address] Social History Tobacco Use Types Packs/Day [...] Cerner Conversion Note - Historical ProviderMD - 10/17/2020 11:08 AM CDT Orthopedic Nurse Navigator Entered On: 10/17/2020 11:13 EDT Performed On: 10/17/2020 11:08 EDT by Tere Carrasco RN-Navigator Orthopedic Nurse Navigator Assessment Joint Navigator Assessment Note : Spoke with patient, she confirmed PAT appt on 10/19 arrive at 1230. [facility], as she did for her RTKA in January. [place] had taken a week to see her due to failing to receive sent orders. Will send Home PT orders a week before surgery with start of care 11/08. She plans to d/c home after overnight stay with help from her three daughters. Sadly, her in August. Tere Carrasco RN-Navigator - 10/17/2020 11:08 EDT Electronically signed by [facility] Conversion Color Laboratory Technician Cerner at 11/06/2022 12:57 PM CDT documented in this encounter Plan of Treatment Not on file documented as of this encounter Visit Diagnoses Not on filedocumented in this encounter Care Teams Dulser Relationship Specialty Start Date End Date Matheus Boggs MD [address] [place] [facility] [address] [place] [address] PCP - General Family Medicine 09/05/22 documented as of this encounter
--- OUTSIDE RECORDS SUMMARY | 2025-07-06 09:05 | XMS_ITS | Encounter Summary ---
Author Organization [employer] ([place], [place], [place], [place], [place]) Address [address] [place] [address] Care Team Providers Care Eyelet Operator Name Role Phone Matheus Boggs MD Primary Care Provider + [phone] Encounter Details Date Type Department Care Team (Late st Contact Info) Description 01/31/2020 Transcribed Document [facility] Family Medicine [address] [place] [address] ProviderCristopher MD [address] [place] [address] Social History Tobacco Use Types [...] Jaida Larios Rn - 01/31/2020 15:30 EDT Electronically signed by Interface, Sjh Conversion Supplier Development Manager Cerner at 11/06/2022 1:08 PM CDT documented in this encounter Plan of Treatment Not on file documented as of this encounter Visit Diagnoses Not on filedocumented in this encounter Care Teams Eyelet Operator Relationship Specialty Start Date End Date Matheus Boggs MD [address] [place] [address] [place] [address] PCP - General Family Medicine 09/05/22 documented as of this encounter
--- OUTSIDE RECORDS SUMMARY | 2025-07-06 09:05 | XMS_ITS | Encounter Summary ---
Author Organization [employer] ([place], [place], [place], [place], [place]) Address [address] [place] [address] Care Team Providers Care Fish Processor Name Role Phone Matheus Boggs MD Primary Care Provider + [phone] Encounter Details Date Type Department Care Team (Late st Contact Info) Description 10/09/2020 Transcribed Document [facility] Family Medicine [address] [place] [address] ProviderCristopher MD [address] [place] [address] Social History Tobacco Use Types [...] Cerner Conversion Note - Historical ProviderMD - 10/09/2020 2:04 PM CDT Total [...] from sitting : Severe 7. Bending to floor/pickle maker an object : Moderate JESSY JR Raw [...] on filedocumented in this encounter Care Teams Fish Processor Relationship Specialty Start Date End Date Matheus Boggs MD [address] [place] [facility] [address] [place] [address] PCP - General Family Medicine 09/05/22 documented as of this encounter
--- OUTSIDE RECORDS SUMMARY | 2025-07-06 09:05 | XMS_ITS | Encounter Summary ---
Author Organization [employer] ([place], [place], [place], [place], [place]) Address [address] [place] [address] Care Team Providers Care Hospital Chief Executive Officer Name Role Phone Matheus Boggs MD Primary Care Provider + [phone] Encounter Details Date Type Department Care Team (Late st Contact Info) Description 10/18/2020 Transcribed Document [facility] Family Medicine [address] [place] [address] ProviderCristopher MD [address] [place] [address] Social History Tobacco Use Types [...] Performed On: 10/18/2020 9:40 EDT by Zac Murrieta, Michelle Pain Assessment Pain Scale Goal : 4 MARY ACEVEDO RN - 10/19/2020 12:12 EDT Height and Weight, Clinical Dosing Height Source : Measured Height Entry Format : [place] Height, Feet : 0 ft(Converted to: 0 cm, 0 Inch) Height, Inches : 60.5 Inch(Converted to: 5 ft 0 Inch, 153.67 cm) Clinical Height : 153.67 cm Weight Source : Standing scale Weight Entry Format : [place] Clinical Dosing Weight : 80.68 kg Weight, Pounds : 177.5 lb Body Surface Area (BSA) : 1.79 m2 Body Mass Index : 34.2 kg/m2 (HI) [place] Body Weight : 46 kg MARY ACEVEDO RN - 10/19/2020 12:12 EDT Health Histories Smoking Status : Never (less than 100 in lifetime; none in last 30 days) Smokeless Tobacco Status : Never Implant/Device Type, Leadership Development Consultant and Model : knee replacement abdominal mesh Zac Murrieta Rn - 10/18/2020 9:40 EDT Social History (As Of: 11/06/2020 08:23:28 EDT) Tobacco: Never (less than 100 in lifetime) Smoking Status. Never Smokeless Tobacco Status. (Last Updated: 01/13/2020 10:07:19 EDT by FAROOQ SAVAGE RN) Alcohol: Alcohol Use History No. (Last Updated: 01/13/2020 10:07:24 EDT by FAROOQ SAVAGE RN) Substance Abuse: Drug Use Hx: No. [...] Acceptable to Patient : Yes YOVANNY ARELLANO 11/06/2020 8:22 EDT Family History of Anesthesia [...] : Yes Spiritual/Cultural Needs Comment : 10/06 Rastafarian Preference : Judaism ([employer]) Spiritual/Cultural Needs Comment : 10/06 Zac Murrieta Rn - 10/18/2020 9:40 EDT [place] Suicide Severity Rating Scale (C-SSRS) CSSRS Past [...] Ambulatory Legal Guardian : Daughter Support Person/Patient Lead Customer Service Representative : Yes Support Person/Pt Rep Name : Bibiana White - dtr Support Person/Pt Rep Contact Information : [phone] Bibiana Edmond Family/Rep/Phys Notified of Admit : No Zac Murrieta Rn - 10/18/2020 9:40 EDT Emergency Contact #1 : `Bibiana Christopher Emergency Contact #1 Phone Number : [phone]` Emergency Contact #1 Relationship : daughter` MARY ACEVEDO RN - 10/19/2020 12:12 EDT Emergency Contact #2 : ` Emergency Contact #2 Phone Number : ` Emergency Contact #2 Relationship : ` Information Obtained From : Patient Primary Language : Amharic Preferred Communication Mode : Verbal Communication Barrier : None Marine Diesel Mechanic Needed : No Zac Murritea Rn - 10/18/2020 9:40 EDT Mohan Scale [...] on filedocumented in this encounter Care Teams Hospital Chief Executive Officer Relationship Specialty Start Date End Date Matheus Boggs MD [address] [place] [facility] [address] [place] [phone] PCP - General Family Medicine 09/05/22 documented as of this encounter
--- OUTSIDE RECORDS SUMMARY | 2025-07-06 09:05 | XMS_ITS | Encounter Summary ---
Author Organization [employer] ([place], [place], [place], [place], [place]) Address [address] [place] [address] Care Team Providers Care Machine Zipper Trimmer Name Role Phone Matheus Boggs MD Primary Care Provider + [phone] Encounter Details Date Type Department Care Team (Late st Contact Info) Description 01/31/2020 Transcribed Document [facility] Family Medicine [address] [place] [address] ProviderCristopher MD [address] [place] [address] Social History Tobacco Use Types [...] Cristopher ProviderMD - 01/31/2020 10:35 AM CDT [facility] Main OR IntraOp Summary Primary Physician: DEAN ALVA MD-ORT Finalized Date/Time: 02/01/20 09:34:27 Pt. Name: MELISSA SIMON D.O.B./Sex: 1945 Female Med Rec #: [id number] Physician: DEAN ALVA MD-ORT Financial #: [id number] Pt. Type: O Room/Bed: [facility] Admit/Disch: 01/31/20 10:45:00 - Institution: [facility] IntraOp Case Attendance Entry 1 Entry 2 Entry 3 Case Attendee DEAN ALVA Nichols, Tanya, ST MEJÍA, ANITA Conroy CSA MD-ORT Role Performed Surgeon/Proceduralist, Scrub, Cardiac Exercise Physiologist, First First Time In 01/31/20 10:07:00 01/31/20 10:07:00 01/31/20 10:07:00 Time Out 01/31/20 11:57:00 01/31/20 11:57:00 01/31/20 11:57:00 Procedure Knee Total Joint Knee Total Joint Knee Total Joint Replacement(Right) Replacement(Right) Replacement(Right) Other Attendee Superficial Wound Closed By: Last Modified By: Renetta Lwarence RN Hamilton, Gina M, Renetta Castanon RN 01/31/20 11:59:12 01/31/20 11:59:12 01/31/20 11:59:12 Entry 4 Entry 5 Entry 6 Case Attendee Renetta Lawrence, Eulalia Pierce Crna OTHER, ATTENDEE Role Performed Lead Java Software Engineer, First PICKLING OPERATOR/Nurse Drain Cleaner Student Time In 01/31/20 10:07:00 01/31/20 10:07:00 [...] OTHER, ATTENDEE #1 HERMINIA RAINES SCHNELLE, JENNIFER, SAP PORTAL DEVELOPER -ANS Role Performed Vendor Anesthesiologist Scrub, First [...] RN 01/31/20 11:59:12 01/31/20 11:59:12 01/31/20 11:59:12 [facility] IntraOp Case Attendance Audit 01/31/20 11:59:12 Still Runner: [email or web address] Modifier: HAMILTGM 1 <+> Time Out [...] Procedure Knee Total Joint Replacement(Right) 01/31/20 11:50:30 Still Runner: [email or web address] Modifier: HAMILTGM 1 <*> Procedure Knee [...] Joint Replacement(Right) <+> 9 Procedure 01/31/20 11:17:17 Still Runner: HAMILTGM Modifier: HAMILTGM 8 <+> Case Attendee 8 <*> Procedure Knee Total Joint Replacement(Right) <+> 9 Case Attendee <+> 9 Role Performed <+> 9 Time In <+> 9 Other Attendee 01/31/20 10:40:56 Still Runner: [email or web address] Modifier: HAMILTGM 1 <+> Time In [...] 8 <*> Procedure Knee Total Joint Replacement(Right) [facility] IntraOp Case Times Entry 1 Patient In Room Time 01/31/20 10:07:00 Out Room Time 01/31/20 11:57:00 Anesthesia Start Time 01/31/20 10:07:00 Stop Time 01/31/20 11:57:00 Surgery / Procedure Times Start Time 01/31/20 10:35:00 Stop Time 01/31/20 11:50:00 Last Modified By: Renetta Lawrence RN 01/31/20 11:59:11 [facility] IntraOp Case Times Audit 01/31/20 11:59:11 Still Runner: [email or web address] Modifier: HAMILTGM <+> 1 Out Room Time <+> 1 Stop Time 01/31/20 11:50:29 Still Runner: HAMILTGM Modifier: HAMILTGM <+> 1 Stop Time [facility] IntraOp Cautery Entry 1 ESU Identification Cautery Type Monopolar ESU ID Number [id number] ID Type Hospital Number Cautery Settings Cut Setting 50 Coag Setting 50 ESU Grounding Pad Ground Pad Type Adult Grounding Pad Site Right Flank Grounding Pad Renetta Lawrence RN Applied By Grounding Pad Site Warm, Dry, Intact Skin Condition Before Cautery Grounding Pad Site Unchanged Skin Condition After Cautery Last Modified By: Renetta Lawrence RN 01/31/20 09:32:25 [facility] IntraOp Communication Entry 1 Entry 2 Communication To Family/Significant other Other Comment START REPORT Communication By Renetta Lawrence RN Hamilton, Gina M, RN Date and Time 01/31/20 10:37:00 01/31/20 11:26:00 Last Modified By: Renetta Lawrence RN Hamilton, Gina M, RN 01/31/20 10:37:14 01/31/20 11:26:26 [facility] IntraOp Communication Audit 01/31/20 11:26:26 Still Runner: [email or web address] Modifier: HAMILTGM <+> 2 Communication By <+> 2 Date and Time <+> 2 Communication To <+> 2 Comment [facility] IntraOp Counts Verification Entry 1 Procedure Knee Total Joint Replacement(Right) Count Info Count Type Sponge, Sharps, Miscellaneous Counts Verification Baseline/pre-procedure Sequence Count Results Not Applicable Counts Performed By Count Performed By Phoebe Mukherjee ST (Scrub) Count Performed By Renetta Lawrence RN (RN) Last Modified By: Renetta Lawrence RN 01/31/20 09:32:39 [facility] Intra[facility] Counts Final Entry 1 Procedure Knee Total Joint Replacement(Right) Final Count Info Count Type Sponge, Sharps, Miscellaneous Counts Verification Skin Closure/end of Sequence procedure Count Results Correct, surgeon notified Counts Performed By Count Performed By AIMEE CALABRESE CST (Scrub) Count Performed By Renetta Lawrence RN (RN) Last Modified By: Renetta Lawrence RN 01/31/20 11:24:00 [facility] Intra[facility] Counts Final Audit 01/31/20 11:24:00 Still Runner: RADHAILTGPawel Modifier: RADHAILTGM 1 <*> Procedure Knee Total Joint Replacement(Right) 1 <+> Count Performed By (Scrub) 1 <+> Count Performed By (RN) [facility] IntraOp Cultures and Spec Summary Entry 1 Cultrures and Specimens Specimen Ordered: Yes Test(s) Routine/Path-Lab Requested/Final Disposition Last Modified By: Renetta Lawrence RN 01/31/20 09:33:05 General Comments: A. RIGHT KNEE BONES AND TISSUE [facility] IntraOp Departure from OR Entry 1 Integumentary Assessment Integumentary WDL Assessment WDL Transfer/Handoff Transfer to PACU Phase I Handoff Method Phone call Post-op Transport Bed (including Via specialty) Patient Transport Eulalia Tejada Crna, Accompanied by Renetta Lawrence RN Last Modified By: Renetta Lawrence RN 01/31/20 09:33:24 [facility] IntraOp Dressing and Packing Entry 1 Type Dressing Location OPERATIVE KNEE Wound Dressing Item Occlusive dressing, Skin Closure Glue Applied By ANITA MEJÍA CSA Other Comments AQUACEL AG, SAMIA HOSE, SCD SLEEVE Last Modified By: Renetta Lawrence RN 01/31/20 09:33:46 [facility] IntraOp Fire Risk Assessment Entry 1 Fire [...] Modified By: Renetta Lawrence RN 01/31/20 09:33:51 [facility] IntraOp General Case Auto Driver 1 Case Information OR OR 05 [facility] Case Level 1 Room Verified Yes Wound Class I - Clean Specialty SN Orthopedic Anesthesia Type General ASA Class 2 Diagnosis Preop Diagnosis RIGHT KNEE OA Postop Same As Preop No Postop Diagnosis SEE DOCTOR'S POST OP NOTES Last Modified By: Renetta Lawrence RN 01/31/20 10:37:26 [facility] IntraOp General Case Data Audit 01/31/20 10:37:26 Still Runner: ALDA Modifier: HAMILTGM <+> 1 ASA Class [facility] IntraOp Implant Log Entry 1 Entry 2 Entry 3 Type Implant (Synthetic) Implant (Synthetic) Implant (Synthetic) Implant Log Implant Type Bone Cement Hardware Hardware Tissue Implant Type Implant CEMENT BONE SMPLX FEM CEMENTED CR NARROW TIB STEM SZ D [id number] Description Implant Quantity 2 1 1 Implant Site OPSITE OPSITE OPSITE Implant Identification Model Number Implant Identification Serial Number Implant [id number] Identification Lot Number Implant [place] Identification Orthopaedics First Mate Name: Implant [id number] Identification Catalog Number Implant Size Implant Has an Yes Yes Yes Expiration Date Implant Expiration 02/17/21 09/17/29 11/17/28 Date Wasted Radioactive Material Time Implanted Tissue Implant Continue for Tissue Implant Documentation Tissue Identification Number Graft Prep Per First Mate Instructions: Tissue Preparation Method: Reconstitution Solution: Reconstitution Solution Lot Number Reconstitution Solution Expiration Date: Thawing Solution Thawing Solution Lot Number Thawing Solution Expiration Date Preparation Materials, Other Preparation Materials, Other Lot Number Preparation Materials, Other Expiration Date Tissue Prepared/Processed By First Mate Paperwork Completed Implant Type Comment Last Modified By: Renetta Lawrence RN Hamilton, Gina M, RN Hamilton, Gina M, RN 01/31/20 09:35:03 01/31/20 11:20:13 01/31/20 11:20:13 Entry 4 Entry 5 Type Implant (Synthetic) Implant (Synthetic) Implant Log Implant Type Hardware Hardware Tissue Implant Type Implant PATELLA CEMENTED PSN ASF MC 10MM VE Identification [id number] Description Implant Quantity 1 1 Implant Site OPSITE OPSITE Implant Identification Model Number Implant Identification Serial Number Implant [id number] Identification Lot Number Implant Identification First Mate Name: Implant Identification Catalog Number Implant Size Implant Has an Yes Yes Expiration Date Implant Expiration 04/19/27 11/18/23 Date Wasted Radioactive Material Time Implanted Tissue Implant Continue for Tissue Implant Documentation Tissue Identification Number Graft Prep Per First Mate Instructions: Tissue Preparation Method: Reconstitution Solution: Reconstitution Solution Lot Number Reconstitution Solution Expiration Date: Thawing Solution Thawing Solution Lot Number Thawing Solution Expiration Date Preparation Materials, Other Preparation Materials, Other Lot Number Preparation Materials, Other Expiration Date Tissue Prepared/Processed By First Mate Paperwork Completed Implant Type Comment Last Modified By: Renetta Lawrence RN Hamilton, Gina M, RN 01/31/20 11:20:13 01/31/20 11:20:13 [facility] Intra[facility] Implant Log Audit 01/31/20 11:20:13 Still Runner: ALDA Modifier: ALDA <+> 2 Implant Identification [...] Has an Expiration Date <+> 5 Type [facility] Intra[facility] Intraoperative Assessment Entry 1 Handoff Method [...] Modified By: Renetta Lawrence RN 01/31/20 09:35:17 [facility] IntraOp Intraoperative Equipment Entry 1 Type Equipment [...] Modified By: Renetta Lawrence RN 01/31/20 09:35:45 [facility] Intra[facility] Medication Admin Entry 1 Entry 2 Entry 3 Medication/Irrigant Bacitracin 50,00units Bacitracin 50,00units hydrogen peroxide 16oz powder vial powder vial - [id number] Combo Med List 1 - Combo Med 1 - Combo Med Time Administered Route of ADDED TO IRRIGATION ADDED TO IRRIGATION TOPICAL Administration Dose Dose [id number] Unit of Measure units units Volume IN 2000ML SALINE IN 3000ML SALINE Administered By DEAN ALVA KARTHIKEYAN, THARUN, KARTHIKEYAN, THARUN, MD-ORT -ORT -ORT Procedure Irrigation Irrigant Volume In Irrigant Volume Out Last Modified By: Renetta Lawrence RN Hamilton, Gina M, RN Hamilton, Gina M, RN 01/31/20 09:36:34 01/31/20 09:36:34 01/31/20 09:36:34 Entry 4 Medication/Irrigant vancomycin 1Gm vial - [id number] Combo Med List Time Administered Route of TOPICAL Administration Dose Dose 1 Unit of Measure gram Volume Administered By DEAN ALVA MD-ORMarycarmen Procedure Irrigation Irrigant Volume In Irrigant Volume Out Last Modified By: Renetta Lawrence RN 01/31/20 09:36:34 [facility] IntraOp Patient Positioning Entry 1 Procedure Knee [...] Modified By: Renetta Lawrence RN 01/31/20 09:37:13 [facility] Intra[facility] Sign In Entry 1 Patient, Site, [...] Modified By: Renetta Lawrence RN 01/31/20 09:38:26 [facility] Intra[facility] Sign Out Entry 1 RN Confirmation [...] Modified By: Renetta Lawrence RN 01/31/20 11:50:35 [facility] Intra[facility] Sign Out Audit 01/31/20 11:50:35 Still Runner: HAMILTGM Modifier: HAMILTGM <+> 1 RN Sign Out Signature Date/Time [facility] IntraOp Skin Prep Entry 1 Procedure Knee Total Joint Replacement(Right) Prescribed Yes Pre-Surgical Prep Completed Prep Area OPERATIVE THIGH TO TOES CIRCUMFRENTIALLY Intraop Prep Integumentary WDL Assessment WDL Prep Agents Alcohol, Chloraprep, DuraPrep, Chlorhexadine gluconate Prep by Renetta Lawrence RN Hair Removal Methods No hair removal performed Last Modified By: Renetta Lawrence RN 01/31/20 09:37:27 [facility] Intra[facility] Surgical Procedures Entry 1 Procedure Knee Total Joint Replacement Modifiers Right Additional RT TOTAL KNEE Procedure ARTHROPLASTY Description Primary Procedure Yes Primary Surgeon DEAN ALVA MD-ORT Start 01/31/20 10:35:00 Stop 01/31/20 11:50:00 Anesthesia Type General Specialty SN Orthopedic Wound Class I - Clean Last Modified By: Renetta Lawrence RN 01/31/20 11:50:29 General Comments: 2 GRAMS OF ANCEF INFUSED AT 1019 PER ANESTHESIA [facility] IntraOp Surgical Procedures Audit 01/31/20 11:50:29 Still Runner: HAMILTGM Modifier: HAMILTGM <+> 1 Stop 01/31/20 10:36:27 Still Runner: HAMILTGM Modifier: HAMILTGM 1 <*> Start 1 <*> Start 1 <*> Start [facility] Intra[facility] Temp Regulation Devices Entry 1 Temp Regulation Temperature Forced Air Warming Regulation Device device, Warm blankets Temperature Upper body Regulation Site Temperature Device 43 DEGREES CELCIUS Setting Temperature Eulalia Tejada, Sascha Regulation Device Applied by Last Modified By: Renetta Lawrence RN 01/31/20 09:37:39 [facility] IntraOP Time Out Entry 1 Procedure to [...] Modified By: Renetta Lawrence RN 01/31/20 10:36:25 [facility] Intra[facility] Time Out Audit 01/31/20 10:36:25 Still Runner: ALDA Modifier: RADHAILTGM 1 <+> Time Out Pause Time 1 <*> Procedure to be Performed Knee Total Joint Replacement(Right) [facility] IntraOp Tourniquet Entry 1 Type Pneumatic Serial/Unit Number [id number] Setting 300 mmHg Pheumatic Yes Tourniquet Checked Per Protocol Size 34 inches Placement Thigh, right upper Skin Protection - Yes Padded Under Cuff Applied By ANITA MEJÍA, CSA Removed By ANITA MEJÍA, CSA Times Start Time 01/31/20 10:35:00 Stop Time 01/31/20 11:32:00 Total Time 57 calculated manually (Mins) Last Modified By: Renetta Lawrence RN 01/31/20 11:33:06 [facility] IntraOp Tourniquet Audit 01/31/20 11:33:06 Still Runner: [email or web address] Modifier: HAMILTGM <+> 1 Total Time calculated manually (Mins) <+> 1 Stop Time 01/31/20 10:36:53 Still Runner: RADHAILTGM Modifier: HAMILTGM <+> 1 Start Time Case [...] filedocumented in this encounter Care Teams Machine Zipper Trimmer Relationship Specialty Start Date End Date Matheus Boggs MD [address] [facility] [address] [place] [phone] PCP - General Family Medicine 09/05/22 documented as of this encounter
--- OUTSIDE RECORDS SUMMARY | 2025-07-06 09:05 | XMS_ITS | Encounter Summary ---
Author Organization [facility] Address [address] [place] [address] Care Team Providers Care Dock Operator Name Role Phone Devin Mendoza MD Primary Care Provider Matheus Boggs MD Primary Care Provider Mitchell Oliva MD Unavailable [phone] Encounter Details Date Type Department Care Team (Late st Contact Info) Description 07/29/2013 Orders Only [facility] Physicians - Primary Care, [address] [place] [phone] Devin Mendoza MD [address] [place] [address] [place] [id number] Social History Tobacco Use Types Packs/Day [...] Procedure Name Priority Date/Time Associated Diagnosis Comments VT ECG ROUTINE ECG W/LEAST 1 2 LDS W/I&R Routine 09/17/2007 documented in this encounter Results * EKG/ELECTROCARDIOGRAM, COMPLETE (09/17/2007) us Devin Mendoza MD [place] CARDIOVASCULAR SYSTEM SER VICES Final Result [facility] [address] [place] [address] documented in this encounter Visit Diagnoses Not on filedocumented in this encounter Care Teams Dock Operator Relationship Specialty Start Date End Date Devin Mendoza MD PCP - General 04/29/08 09/13/14 Matheus Boggs MD [address] [place] [address] PCP - General Family Medicine 09/14/14 [place] [address] [place] [address]. [address] [place] [address] General Surgery 07/28/22 documented as of this encounter
--- OUTSIDE RECORDS SUMMARY | 2025-07-06 09:07 | XMS_ITS | Encounter Summary ---
Author Organization [employer] ([place], [place], [place], [place], [place]) Address [address] [place] [address] Care Team Providers Care Nuclear Weapons Custodian Name Role Phone Matheus Boggs MD Primary Care Provider + [phone] Encounter Details Date Type Department Care Team (Late st Contact Info) Description 01/31/2020 Transcribed Document [facility] [place] [address] [place] [address] ProviderCristopher MD [address] [place] [address] Social History Tobacco Use Types [...] Conversion Note - Historical ProviderMD - 01/31/2020 2:00 AM CDT Spiritual [...] Emotional Support : Empathic/Engaged listening Spiritual and Restorationist : Prayer shared, Spiritual/Restorationist support provided PHANI BARLOW P - 01/31/2020 9:13 EDT Electronically signed by [facility] Conversion Market Editor Cerner at 11/06/2022 12:54 PM CDT documented in this encounter Plan of Treatment Not on file documented as of this encounter Visit Diagnoses Not on filedocumented in this encounter Care Teams Nuclear Weapons Custodian Relationship Specialty Start Date End Date Matheus Boggs MD [address] [facility] [address] [place] [phone] PCP - General Family Medicine 09/05/22 documented as of this encounter
--- OUTSIDE RECORDS SUMMARY | 2025-07-06 09:07 | XMS_ITS | Encounter Summary ---
Author Organization [employer] ([place], [place], [place], [place], [place]) Address [address] [place] [address] Care Team Providers Care Patient Coordinator Front Desk Name Role Phone Matheus Boggs MD Primary Care Provider + [phone] Encounter Details Date Type Department Care Team (Late st Contact Info) Description 01/31/2020 Transcribed Document [facility] [address] [place] [address] Lizz Gonzalez MD [facility] [place] [address] Social History Tobacco Use Types Packs/Day Years [...] Female : 1945 Associated Diagnoses: None Author: COMERFAY, PELT DROPPER Chief Complaint R knee pain Review of [...] Medications Documented Arnuity Ellipta: 100 mcg, Inhalation, [id number], PRN: Wheezing, 0 Refill(s) Levoxyl: 125 mcg, Oral, Daily, 0 Refill(s) Singulair: 10 mg, Oral, At Bedtime, 0 Refill(s) Tylenol: 650 mg, Oral, At Bedtime, 0 Refill(s) Ventolin HFA: 2 Puff, Inhalation, Q4H, PRN: as needed for wheezing, 0 Refill(s) acebutolol: 200 mg, Oral, BID, 0 Refill(s) allerlgy shots: 1, SubCutaneous, [id number], 0 Refill(s) fexofenadine: 180 mg, Oral, Daily, 0 Refill(s) fluticasone 50 mcg/inh nasal spray: 2 [place], Nasal, BID, PRN: Allergies, 16 Gram, 0 Refill(s) hydrOXYzine hydrochloride: 25 mg, Oral, TID, PRN: as needed for anxiety, 0 Refill(s) hydrochlorothiazide-irbesartan 12.5 mg-150 mg oral tablet: 1 Tab, Oral, Daily, 30 Tab, 0 Refill(s) liothyronine: 5 mcg, Oral, Daily, 0 Refill(s) meloxicam: 7.5 mg, Oral, Daily, 0 Refill(s), Home Medications (13) Active acebutolol 200 mg, Oral, BID allerlgy shots 1, SubCutaneous, L3Puvyy Arnuity Ellipta 100 mcg, PRN, Inhalation, [id number] fexofenadine 180 mg, Oral, Daily fluticasone 50 mcg/inh nasal spray 2 Newport, PRN, Nasal, BID hydrochlorothiazide-irbesartan 12.5 mg-150 mg [...] Problems Urinary tract infection / SNOMED CT 730132981 / Confirmed hypo Thyroid disease / SNOMED CT 776191794 / Confirmed Sinusitis / SNOMED CT 61398129 / Confirmed Seasonal allergies / SNOMED CT 8885243323 / Confirmed Renal calculus / SNOMED CT 814749152 / Confirmed Thyroid mass benign / SNOMED CT 8052990733 / Confirmed Irritable bowel syndrome / SNOMED CT 36377393 / Confirmed Incontinence/Frequency / SNOMED CT 56842091 / Confirmed Hyperlipidemia / SNOMED CT 11504141 / Confirmed High blood pressure / SNOMED CT 66540304 / Confirmed Hiatal hernia / SNOMED CT 960181727 / Confirmed Hemorrhoids / SNOMED CT 191796655 / Confirmed Hard of hearing has aides / SNOMED CT 595204129 / Confirmed Shortness of breath / SNOMED CT 635918114 / Confirmed Difficulty swallowing / SNOMED CT 52268093 / Confirmed H/O bilateral Cataract / SNOMED CT 074622696 / Confirmed Cardiac syndrome X / SNOMED CT 560447279 / Confirmed Bursitis / SNOMED CT 277219499 / Confirmed At risk for sleep apnea / IMO 42494232 / Confirmed Asthma / SNOMED CT 784740159 / Confirmed Arthritis osteo / SNOMED CT 8602113 / Confirmed Angina / SNOMED CT 436478738 / Confirmed Allergic rhinitis / SNOMED CT 264281831 / Confirmed, Active Problems (23) Allergic rhinitis [...] 150 (JAN 30 07:58) DBP L 57 (JAN 30 07:58) L 57 (JAN 30 07:58) L 57 (JAN 30 07:58) MAP 80 (JAN 30 07:58) 80 (JAN 30 07:58) 80 (JAN 30 07:58) SpO2 95 (JAN 30 07:58) 95 (JAN 30 07:58) 95 (JAN 30 07:58) General: Alert and oriented, No acute distress, obese. Eye: Pupils are equal, round and reactive to light, Extraocular movements are intact, glasses. HENT: Normocephalic, TETLIN. Neck: Supple, Non-tender. Respiratory: Lungs are clear to auscultation, Respirations are non-labored. Cardiovascular: Normal rate, Regular rhythm, No murmur, No gallop, No edema. Gastrointestinal: Soft, Non-tender. Genitourinary: No costovertebral angle tenderness. Lymphatics: No lymphadenopathy neck, axilla, groin. Musculoskeletal: painful ROM R knee, RLE weakness, see comprehensive ortho exam in office notes. Integumentary: Warm, Dry, [place]. Neurologic: Alert, Oriented. Psychiatric: Cooperative, Appropriate mood [...] filedocumented in this encounter Care Teams Patient Coordinator Front Desk Relationship Specialty Start Date End Date Matheus Boggs MD [address] [place] [facility] [address] [place] [address] PCP - General Family Medicine 09/05/22 documented as of this encounter
--- OUTSIDE RECORDS SUMMARY | 2025-07-06 09:07 | XMS_ITS | Encounter Summary ---
Author Organization [employer] ([place], [place], [place], [place], [place]) Address [address] [place] [address] Care Team Providers Care Advice Line Rn Name Role Phone Matheus Boggs MD Primary Care Provider + [phone] Encounter Details Date Type Department Care Team (Late st Contact Info) Description 01/31/[address] [facility] [place] [address] [place] [address] ProviderCristopher MD [address] [place] [address] Social History Tobacco Use Types [...] Directive Type : Medical durable power of health care attorney (proxy) Copy Advance Directive Verified/on Chart [...] Legal Guardian : Daughter, Unaccompanied Support Person/Patient Rig Supervisor : Yes Support Person/Pt Rep Name : Lili White - dtr Fay Reese - dtr Support Person/Pt Rep Contact Information : [phone] Want Family/Rep/Phys Notified of Admit : No Emergency Contact #1 : Lili White Emergency Contact #1 Emergency Contact #1 Relationship : dtr Emergency Contact #2 : Fay Reese Emergency Contact #2 Emergency Contact #2 Relationship : dtr Information Obtained From : Patient Primary Language : Kyrgyz Preferred Communication Mode : Verbal Communication Barrier : None Mining Detail Draftsperson Needed : No Objects to Sharing Info [...] Access : Yes Nicole Gait/Transferring : Impaired Dominguez Mental Status : Oriented to own ability Nicole Fall Risk Score : 70 NICOLE Fall Scale Risk Level : 46 or > High Risk Stonewall Fall Interventions : Adequate lighting, Assistive devices [...] Source : Measured Height Entry Format : [place] Height, Feet : 5 ft(Converted to: 152 cm, 60 Inch) Height, Inches : 1.5 Inch(Converted to: 0 ft 2 Inch, 3.81 cm) Clinical Height : 156.21 cm Weight Source : Standing scale Weight Entry Format : [place] Clinical Dosing Weight : 78.32 kg Weight, Pounds : 172 lb Weight, Ounces : 5 oz Body Surface Area (BSA) : 1.79 m2 Body Mass Index : 32.1 kg/m2 (HI) [place] Body Weight : 49 kg Jaida Larios [...] Jaida Larios Rn - 01/31/2020 13:54 EDT [place] Suicide Severity Rating Scale (C-SSRS) CSSRS Past [...] 01/31/2020 13:54 EDT Electronically signed by Kee [facility] Conversion Fire Safety Director Cerner at 11/06/2022 12:54 PM CDT documented in this encounter Plan of Treatment Not on file documented as of this encounter Visit Diagnoses Not on filedocumented in this encounter Care Teams Advice Line Rn Relationship Specialty Start Date End Date Matheus Boggs MD [address] [place] [facility] [address] [place] [address] PCP - General Family Medicine 09/05/22 documented as of this encounter
--- OUTSIDE RECORDS SUMMARY | 2025-07-06 09:07 | XMS_ITS | Encounter Summary ---
Author Organization [employer] ([place], [place], [place], [place], [place]) Address [address] [place] [address] Care Team Providers Care Daytime Babysitter Name Role Phone Matheus Boggs MD Primary Care Provider + [phone] Encounter Details Date Type Department Care Team (Late st Contact Info) Description 01/31/2020 Transcribed Document [facility] [place] [address] [place] [address] ProviderCristopher MD [address] [place] [address] Social History Tobacco Use Types [...] Anesthesiologist Procedure Case Attendee Role 2 : spin table operator Case Attendee 2 : MO Macdonald RN Procedure Case Attendee Role 3 : spin table operator Case Attendee 3 : Nanette Weston [...] 01/31/2020 8:37 EDT Electronically signed by Kee [facility] Conversion Bakery Products Checker Cerner at 11/06/2022 1:06 PM CDT documented in this encounter Plan of Treatment Not on file documented as of this encounter Visit Diagnoses Not on filedocumented in this encounter Care Teams Daytime Babysitter Relationship Specialty Start Date End Date Matheus Boggs MD [address] [place] [facility] [address] [place] [address] PCP - General Family Medicine 09/05/22 documented as of this encounter
--- OUTSIDE RECORDS SUMMARY | 2025-07-06 09:07 | XMS_ITS | Encounter Summary ---
Author Organization [employer] ([place], [place], [place], [place], [place]) Address [address] [place] [address] Care Team Providers Care Farm Reporter Name Role Phone Matheus Boggs MD Primary Care Provider [phone] Encounter Details Date Type Department Care Team (Late st Contact Info) Description 02/01/2020 Transcribed Document [facility] [place] [address] [place] [address] ProviderCristopher MD [address] [place] [address] Social History Tobacco Use Types [...] Insurance 1 Health Plan: MEDICARE Policy Number: [id number] Authorization Number: NPR Insurance 2 Health Plan: AARP N Policy Number: [id number] Authorization Number: NPR Insurance Primary Name : MEDICARE Authorization Number-Primary : NPR for Medicare Authorized Service Begin Date-Primary : 01/31/2020 EDT Historical Authorization Comments-Primary : Comment 1: pt scheduled for OUT PT total knee replacement (Right) on 01-31-2020 Medicare: NPR (JOSH MALIK, Janitorial Manager 01/28/2020 13:53) Susi Andino Rn-Utilization Review - 02/01/2020 9:52 EDT Electronically signed by [facility], [facility] Conversion Way Inspector Cerner at 11/06/2022 1:00 PM CDT documented in this encounter Plan of Treatment Not on file documented as of this encounter Visit Diagnoses Not on filedocumented in this encounter Care Teams Farm Reporter Relationship Specialty Start Date End Date Matheus Boggs MD [address] [facility] [address] [place] [address] PCP - General Family Medicine 09/05/22 documented as of this encounter
--- OUTSIDE RECORDS SUMMARY | 2025-07-06 09:07 | XMS_ITS | Encounter Summary ---
Author Organization [employer] ([place], [place], [place], [place], [place]) Address [address] [place] [address] Care Team Providers Care Fan Balancer Name Role Phone Matheus Boggs MD Primary Care Provider + [phone] Encounter Details Date Type Department Care Team (Late st Contact Info) Description 02/01/2020 Transcribed Document [facility] [place] [address] [place] [address] ProviderCristopher MD [address] [place] [address] Social History Tobacco Use Types [...] Conversion Note - Cristopher ProviderMD - 02/01/2020 2:07 PM CDT [facility] [place] [address] MARY WALKER V :1945 Visit Time:01/31/2020 Your Visit Summary Your Care Team Admitting Physician - DEAN GONZALEZ MD-ORT Attending Physician - DEAN GONZALEZ MD-ORT Primary Care Physician - MATHEUS BOGGS (REF), MAXIM Referring Physician - DEAN GONZALEZ MD-ORT MULBERRY, BRIAN (REF), MAXIM ARRIAGA, NOT LISTED Your Diagnosis History of knee [...] Up Instructions: Follow-up Dr. Gonzalez 3 wks ([phone]) Follow Up Instructions: Continue SAMIA hose for 6 weeks Follow Up Instructions: Leave Aquacel dressing in place x 7-10d, then open to air. Follow-Up Appointments Follow Up with SHWETA DANGELO PA-ORT When 02/21/2020 03:30 PM EDT Where: [facility] [place] [address]- Medications What How Much When Instructions Next Dose acetaminophen-oxyCODONE (Percocet 5/ 325 oral tablet) 1 Tablet(s) Oral Every 4 Hours as needed for Pain (Severe 7-10) not to exceed 6 tablets/ day Printed Prescription aspirin (aspirin 81 mg oral tablet) 1 Tablet(s) Oral Two Times A Day Duration: 42 Day(s) Printed Prescription Friday02/01/20 9:00 PM docusate (Colace 100 mg oral [...] (fluticasone 50 mcg/ inh nasal spray) 2 Kinsman(s) Nasal Two Times A Day as needed [...] of Dr. Gonzalez or Dr. Arthur, call [phone] If you are a patient of Dr. German, call [phone] Nurse Navigator: Ivanna Carrasco Office: [phone]; ; available during regular business hours Emergency [...] Assistance with quitting is available by contacting 7-228-HHTO-NOW. This is a free resource providing counseling, [...] range between ( 0.0 and 7.0 ) [place] #: 0.72 K/uL -- Normal range between ( 0.16 and 1.00 ) Eos #: 0.10 x10(3)/uL -- Normal range between ( 0.00 and 0.80 ) [place] %: 7.6 % -- Normal range between [...] was given the opportunity to ask questions. Patient/Quality Control Checker Name: Patient/Quality Control Checker Signature: Relationship to Patient: Clinician/Hospital Quality Control Checker Signature: Date: Electronically signed by Interface, [facility] Conversion Rfid Technician Cerner at 11/06/2022 1:12 PM CDT documented in this encounter Plan of Treatment Not on file documented as of this encounter Visit Diagnoses Not on filedocumented in this encounter Care Teams Fan Balancer Relationship Specialty Start Date End Date Matheus Boggs MD [address] [place] [facility] [address] [place] [address] PCP - General Family Medicine 09/05/22 documented as of this encounter
--- OUTSIDE RECORDS SUMMARY | 2025-07-06 09:07 | XMS_ITS | Encounter Summary ---
Author Organization [employer] ([place], [place], [place], [place], [place]) Address [address] [place] [address] Care Team Providers Care Medical Records Receptionist Name Role Phone Matheus Boggs MD Primary Care Provider + [phone] Encounter Details Date Type Department Care Team (Late st Contact Info) Description 01/31/2020 Transcribed Document [facility] [place] Medicine [address] [place] [address] ProviderCristopher MD [address] [place] [address] Social History Tobacco Use Types [...] Conversion Note - Historical ProviderMD - 01/31/2020 12:46 PM CDT Evaluation, [...] Treatment Instructions Ordered By: DEAN ALVA MD-ORMarycarmen Active Diagnoses : No Qualifying Diagnoses Therapy [...] : numbness and foot drop RLE EDU BARNES, PT - 01/31/2020 13:51 EDT Activity Tolerance, [...] of Assistive Device : Needs reinforcement EDU BARNES PT - 01/31/2020 13:51 EDT Indication Assesessment, [...] EDU BARNES, PT - 01/31/2020 13:51 EDT Penit[facility]iary Goals Mobility/Bed Mobility LTG PT Grid Goal [...] Subjective Comment : Pt agreeable to PT whitneyal, states pain 4/10 at rest. Patient's Response [...] home health Anticipated Home Equipment : Commode, Walker Recommend Continued Therapy at Discharge : Yes EDU BARNES, PT - 01/31/2020 13:[address] [facility] PT Charges PT Eval Low Complexity : 1 EDU BARNES, PT - 01/31/2020 13:51 EDT Electronically signed by Kee [facility] Conversion Laserist Cerner at 11/06/2022 1:03 PM CDT documented in this encounter Plan of Treatment Not on file documented as of this encounter Visit Diagnoses Not on filedocumented in this encounter Care Teams Medical Records Receptionist Relationship Specialty Start Date End Date Matheus Boggs MD [address] [facility] [address] [place] [address] PCP - General Family Medicine 09/05/22 documented as of this encounter
--- OUTSIDE RECORDS SUMMARY | 2025-07-06 09:07 | XMS_ITS | Encounter Summary ---
Author Organization [employer] ([place], [place], [place], [place], [place]) Address [address] [place] [address] Care Team Providers Care Statistical Machine Servicer Name Role Phone Matheus Boggs MD Primary Care Provider + [phone] Encounter Details Date Type Department Care Team (Late st Contact Info) Description 02/01/2020 Transcribed Document [facility] [place] [address] [place] [address] ProviderCristopher MD [address] [place] [address] Social History Tobacco Use Types [...] Conversion Note - Historical ProviderMD - 02/01/2020 9:37 AM CDT Stroke/Warfarin [...] on filedocumented in this encounter Care Teams Statistical Machine Servicer Relationship Specialty Start Date End Date Matheus Boggs MD [address] [facility] [address] [place] [address] PCP - General Family Medicine 09/05/22 documented as of this encounter
--- OUTSIDE RECORDS SUMMARY | 2025-07-06 09:07 | XMS_ITS | Encounter Summary ---
Author Organization [employer] ([place], [place], [place], [place], [place]) Address [address] [place] [address] Care Team Providers Care Outcomes Specialist Name Role Phone Matheus Boggs MD Primary Care Provider + [phone] Encounter Details Date Type Department Care Team (Late st Contact Info) Description 01/31/2020 Transcribed Document [facility] [place] [address] [place] [address] ProviderCristopher MD [address] [place] [address] Social History Tobacco Use Types [...] EDT Pain Scale Intensity : 2 Jaida Larios, Michelle - 01/31/2020 17:10 EDT Image 4 - Images currently included in the form version of this document have not been included in the text rendition version of the form. documented in this encounter Plan of Treatment Not on file documented as of this encounter Visit Diagnoses Not on filedocumented in this encounter Care Teams Outcomes Specialist Relationship Specialty Start Date End Date Matheus Boggs MD [address] [facility] [address] [place] [address] PCP - General Family Medicine 09/05/22 documented as of this encounter
--- OUTSIDE RECORDS SUMMARY | 2025-07-06 09:07 | XMS_ITS | Encounter Summary ---
Author Organization [employer] ([place], [place], [place], [place], [place]) Address [address] [place] [address] Care Team Providers Care Farm Butcher Name Role Phone Matheus Boggs MD Primary Care Provider + [phone] Encounter Details Date Type Department Care Team (Late st Contact Info) Description 02/01/2020 Transcribed Document [facility] [place] [address] [place] [address] ProviderCristopher MD [address] [place] [address] Social History Tobacco Use [...] On: 02/01/2020 17:21 EDT by NAGI TAPIA RN-Strategic Partnership Manager Final Discharge Planning Discharge Arrangements : Patient [...] Services (Related/SOC within 3 days)-06 NAGI TAPIA RN-Strategic Partnership Manager - 02/01/2020 17:21 EDT documented in this encounter Plan of Treatment Not on file documented as of this encounter Visit Diagnoses Not on filedocumented in this encounter Care Teams Farm Butcher Relationship Specialty Start Date End Date Matheus Boggs MD [address] [facility] [address] [place] [address] PCP - General Family Medicine 09/05/22 documented as of this encounter
--- OUTSIDE RECORDS SUMMARY | 2025-07-06 09:07 | XMS_ITS | Encounter Summary ---
Author Organization [employer] ([place], [place], [place], [place], [place]) Address [address] [place] [address] Care Team Providers Care Proration Clerk Name Role Phone Matheus Boggs MD Primary Care Provider + [phone] Encounter Details Date Type Department Care Team (Late st Contact Info) Description 01/31/2020 Transcribed Document [facility] [place] [address] [place] [address] ProviderCristopher MD [address] [place] [address] Social History Tobacco Use Types [...] Phillips STUDENT-OCCUPATIONAL THERAPIST - 01/31/2020 14:28 EDT Termite Exterminator Goals, OT Grooming LTG Grid Goal #1 [...] the text rendition version of the form. [place] OT Charges OT Eval Moderate Complexity : 1 Malinda Phillips STUDENT-OCCUPATIONAL THERAPIST - 01/31/2020 14:28 EDT documented in this encounter Plan of Treatment Not on file documented as of this encounter Visit Diagnoses Not on filedocumented in this encounter Care Teams Proration Clerk Relationship Specialty Start Date End Date Matheus Boggs MD [address] [facility] [address] [place] [phone] PCP - General Family Medicine 09/05/22 documented as of this encounter
--- OUTSIDE RECORDS SUMMARY | 2025-07-06 09:07 | XMS_ITS | Encounter Summary ---
Author Organization [employer] ([place], [place], [place], [place], [place]) Address [address] [place] [address] Care Team Providers Care Church Supervisor Name Role Phone Matheus Boggs MD Primary Care Provider + [phone] Encounter Details Date Type Department Care Team (Late st Contact Info) Description 01/31/2020 Transcribed Document [facility] [place] [address] [place] [address] ProviderCristopher MD [address] [place] [address] Social History Tobacco Use Types [...] Cristopher ProviderMD - 01/31/2020 10:35 AM CDT [facility] Main OR PACU Summary Primary Physician: DEAN ALVA MD-ORT Finalized Date/Time: 01/31/20 15:49:48 Pt. Name: MARY WALKER D.O.B./Sex: 1945 Female Med Rec #: [id number] Physician: DEAN ALVA MD-MARIANELA Financial #: [id number] Pt. Type: O Room/Bed: 648/1 Admit/Disch: 01/31/20 06:33:00 - Institution: [facility] Main OR PACU I Case [...] by Kee [facility] Conversion Teaching Artist Cerner at 11/06/2022 1:00 PM CDT documented in this encounter Plan of Treatment Not on file documented as of this encounter Visit Diagnoses Not on filedocumented in this encounter Care Teams Church Supervisor Relationship Specialty Start Date End Date Matheus Boggs MD [address] [facility] [address] [place] [address] PCP - General Family Medicine 09/05/22 documented as of this encounter
--- OUTSIDE RECORDS SUMMARY | 2025-07-06 09:08 | XMS_ITS | Encounter Summary ---
Author Organization [employer] ([place], [place], [place], [place], [place]) Address [address] [place] [address] Care Team Providers Care Complex Director Name Role Phone Matheus Boggs MD Primary Care Provider + [phone] Encounter Details Date Type Department Care Team (Late st Contact Info) Description 11/06/2020 Transcribed Document [facility] Family Medicine [address] [place] [address] ProviderCristopher MD [address] [place] [address] Social History Tobacco Use Types [...] Conversion Note - Historical ProviderMD - 11/06/2020 10:20 AM CDT [facility] Main OR IntraOp Summary Primary Physician: DEAN ALVA MD-ORT Finalized Date/Time: 11/07/20 10:33:31 Pt. Name: MELISSA SIMON D.O.B./Sex: 1945 Female Med Rec #: [id number] Physician: DEAN ALVA MD-ORT Financial #: [id number] Pt. Type: O Room/Bed: [facility] Admit/Disch: 11/06/20 06:53:00 - Institution: [facility] IntraOp Case Attendance Entry 1 Entry 2 Entry 3 Case Attendee DEAN ALVA, JORGE A MUÑIZ MD-ANS LEXUS, MARGA Carcamo MD-ORT COP WINDER, GEOTECHNICIAN Role Performed Surgeon/Proceduralist, Anesthesiologist of GEOTECHNICIAN/Nurse Deicer Kit Assembler First Record Time In 11/06/20 09:48:00 11/06/20 [...] ANITA MEJÍA, Warren Robles, Surgical OTHER, ATTENDEE Hemstitcher Role Performed Share Holder, First Scrub, First Scrub, Second Time In 11/06/20 09:48:00 11/06/20 09:48:00 11/06/20 09:48:00 Time Out 11/06/20 11:34:00 11/06/20 11:34:00 11/06/20 11:34:00 Procedure Knee Total Joint Knee Total Joint Knee Total Joint Replacement(Left) Replacement(Left) Replacement(Left) Other Attendee Kenneth Ribera - [facility] Superficial Wound Closed By: Last Modified By: Kanwal Tolbert Rn Moore, Kimberly A, Rn Moore, Kimberly A, Rn 11/06/20 12:08:10 11/06/20 12:08:10 11/06/20 12:08:10 Entry 7 Entry 8 Entry 9 Case Attendee Jamshid Whitney I, Kanwal Bonilla Rn OTHER, ATTENDEE #1 Role Performed Home Staging Specialist, First Home Staging Specialist, Second Vendor Time In 11/06/20 09:48:00 11/06/20 09:48:00 11/06/20 09:48:00 Time Out 11/06/20 11:34:00 11/06/20 11:34:00 11/06/20 11:34:00 Procedure Knee Total Joint Knee Total Joint Knee Total Joint Replacement(Left) Replacement(Left) Replacement(Left) Other Attendee orientee Joao Jason Superficial Wound Closed By: Last Modified By: Kanwal Tolbert, Rn Kanwal Tolbert, Rn Kanwal Tolbert Rn 11/06/20 12:08:10 11/06/20 12:08:10 11/06/20 12:08:10 [facility] IntraOp Case Attendance Audit 11/06/20 12:08:10 Clothespin Drier Operator: [id number] Modifier: [id number] 1 <+> Time Out 1 <*> Procedure [...] Procedure Knee Total Joint Replacement(Left) 11/06/20 10:57:55 Clothespin Drier Operator: [id number] Modifier: [id number] <+> 9 Case Attendee <+> 9 Role Performed <+> 9 Time In <+> 9 Procedure <+> 9 Other Attendee 11/06/20 10:28:37 Clothespin Drier Operator: [id number] Modifier: [id number] <+> 1 Time In <+> 1 Procedure [...] 8 <*> Procedure Knee Total Joint Replacement(Left) [facility] IntraOp Case Times Entry 1 Patient In Room Time 11/06/20 09:48:00 Out Room Time 11/06/20 11:34:00 Anesthesia Start Time 11/06/20 09:48:00 Stop Time 11/06/20 11:34:00 Surgery / Procedure Times Start Time 11/06/20 10:20:00 Stop Time 11/06/20 11:31:00 Last Modified By: Kanwal Tolbert Rn 11/06/20 12:08:08 [facility] IntraOp Case Times Audit 11/06/20 12:08:08 Clothespin Drier Operator: [id number] Modifier: [id number] <+> 1 Out Room Time <+> 1 Stop Time <+> 1 Stop Time 11/06/20 10:29:31 Clothespin Drier Operator: [id number] Modifier: [id number] <+> 1 Start Time [facility] IntraOp Cautery Entry 1 ESU Identification Cautery Type Monopolar ESU ID Number [id number] ID Type Hospital Number Cautery Settings Cut Setting 50 Coag Setting 50 ESU Grounding Pad Ground Pad Type Adult Grounding Pad Site Right Lower Abdomen Grounding Pad Jamshid Whitney RN Applied By Grounding Pad Site Warm, Dry, Intact Skin Condition Before Cautery Grounding Pad Site Unchanged Skin Condition After Cautery Last Modified By: Jamshid Whitney RN 11/06/20 10:01:36 [facility] IntraOp Communication Entry 1 Communication To Family/Significant other Comment start Communication By Jamshid Whitney RN Date and Time 11/06/20 10:22:00 Last Modified By: Jamshid Whitney RN 11/06/20 10:22:53 [facility] IntraOp Counts Verification Entry 1 Procedure Knee Total Joint Replacement(Left) Count Info Count Type Sponge, Sharps, Miscellaneous Counts Verification Baseline/pre-procedure Sequence Count Results Not Applicable Counts Performed By Count Performed By Warren Morris, Surgical (Scrub) Hemstitcher Count Performed By Kanwal Tolbert Rn (RN) Last Modified By: Jamshid Whitney RN 11/06/20 10:00:23 [facility] IntraOp Counts Final Entry 1 Procedure Knee Total Joint Replacement(Left) Final Count Info Count Type Sponge, Sharps, Miscellaneous Counts Verification Skin Closure/end of Sequence procedure Count Results Correct, surgeon notified Counts Performed By Count Performed By OTHER, ATTENDEE (Scrub) Count Performed By Jamshid Whitney I RN (RN) Last Modified By: Jamshid Whitney RN 11/06/20 11:16:01 [facility] IntraOp Counts Final Audit 11/06/20 11:16:01 Clothespin Drier Operator: [id number] Modifier: [id number] 1 <*> Procedure Knee Total Joint Replacement(Left) 11/06/20 11:15:55 Clothespin Drier Operator: [id number] Modifier: [id number] 1 <*> Procedure Knee Total Joint Replacement(Left) 1 <+> Count Performed By (Scrub) 1 <+> Count Performed By (RN) [facility] IntraOp Cultures and Spec Summary Entry 1 Cultrures and Specimens Specimen Ordered: Yes Test(s) Routine/Path-Lab Requested/Final Disposition Last Modified By: Jamshid Whitney RN 11/06/20 10:25:46 General Comments: SPECIMEN: A. left knee bone and tissue [facility] IntraOp Departure from OR Entry 1 Integumentary Assessment Integumentary WDL Assessment WDL Transfer/Handoff Transfer to PACU Phase I Handoff Method Phone call Post-op Transport Bed (including Via specialty) Patient Transport MARGA ALBERTS, Accompanied by COP WINDERANGELA Last Modified By: Jamshid Whitney RN 11/06/20 10:23:32 [facility] IntraOp Dressing and Packing Entry 1 Type Dressing Location OPERATIVE KNEE Wound Dressing Item Occlusive dressing, Skin Closure Glue Other Comments [employer]QU[employer] AG Last Modified By: Jamshid Whitney RN 11/06/20 11:15:24 [facility] IntraOp Fire Risk Assessment Entry 1 Fire Info Surgical Site or 0- No Incision Above the Xyphoid Open O2 Source 0- No (Mask or Cannula) Available Ignition 1- Yes (ESU, Laser, Light Source) Fire Risk 1 Assessment Score Fire Score Fire Risk Yes Assessment Complete Fire Risk Jamshid Whitney I, residential framing carpenter Verified By Fire Risk 11/06/20 10:20:00 Assessment Verified Date/Time Fire Risk Standard Fire Yes Safety Precautions Followed Last Modified By: Jamshid Whitney RN 11/06/20 10:25:55 [facility] IntraOp General Case Grinder Gear 1 Case Information OR OR 05 [facility] Case Level 1 Room Verified Yes Wound Class I - Clean Specialty Orthopedic Anesthesia Type General ASA Class 2 Diagnosis Preop Diagnosis osteoarthritis left knee Postop Same As Preop No Postop Diagnosis see MD postop notes Last Modified By: Jamshid Whitney RN 11/06/20 10:28:06 [facility] IntraOp Implant Log Entry 1 Entry 2 Entry 3 Type Implant (Synthetic) Implant (Synthetic) Implant (Synthetic) Implant Log Implant Type Bone Cement Hardware Hardware Tissue Implant Type Implant CEMENT BONE SMPLX PSN ASF MC 10MM VE L PATELLA CEMENTED Identification [id number] Description Implant Quantity 2 1 1 Implant Site left knee left knee left knee Implant Identification Model Number Implant Identification Serial Number Implant [id number] Identification Lot Number Implant [place]:Douglas Eren:Eren Us Eren:Eren Us Identification Orthopaedics Tool Crib Attendant Name: Implant [id number] Identification Catalog Number Implant Size Implant Has an Yes Yes Yes Expiration Date Implant Expiration 10/18/21 06/03/25 08/26/28 Date Wasted Radioactive Material Time Implanted Tissue Implant Continue for Tissue Implant Documentation Tissue Identification Number Graft Prep Per Tool Crib Attendant Instructions: Tissue Preparation Method: Reconstitution Solution: Reconstitution Solution Lot Number Reconstitution Solution Expiration Date: Thawing Solution Thawing Solution Lot Number Thawing Solution Expiration Date Preparation Materials, Other Preparation Materials, Other Lot Number Preparation Materials, Other Expiration Date Tissue Prepared/Processed By Tool Crib Attendant Paperwork Completed Implant Type Comment Last Modified By: Jamshid Whitney RN Kesten, Robert I, RN Kesten, Robert I, RN 11/06/20 11:01:45 11/06/20 11:01:45 11/06/20 11:01:45 Entry 4 Entry 5 Type Implant (Synthetic) Implant (Synthetic) Implant Log Implant Type Hardware Hardware Tissue Implant Type Implant FEM CEMENTED NARROW SZ TIB STEM NATURAL L Identification [id number] Description Implant Quantity 1 1 Implant Site left knee left knee Implant Identification Model Number Implant Identification Serial Number Implant Identification Lot Number Implant Eren:Eren Us Eren:Eren Us Identification Tool Crib Attendant Name: Implant [id number] Identification Catalog Number Implant Size Implant Has an Yes Yes Expiration Date Implant Expiration 05/08/30 06/12/30 Date Wasted Radioactive Material Time Implanted Tissue Implant Continue for Tissue Implant Documentation Tissue Identification Number Graft Prep Per Tool Crib Attendant Instructions: Tissue Preparation Method: Reconstitution Solution: Reconstitution Solution Lot Number Reconstitution Solution Expiration Date: Thawing Solution Thawing Solution Lot Number Thawing Solution Expiration Date Preparation Materials, Other Preparation Materials, Other Lot Number Preparation Materials, Other Expiration Date Tissue Prepared/Processed By Tool Crib Attendant Paperwork Completed Implant Type Comment Last Modified By: Jamshid Whitney RN Kesten, Robert I, RN 11/06/20 11:01:45 11/06/20 11:01:45 [facility] IntraOp Intraoperative Assessment Entry 1 Handoff [...] Modified By: Jamshid Whitney RN 11/06/20 10:29:47 [facility] IntraOp Intraoperative Assessment Audit 11/06/20 10:29:47 Clothespin Drier Operator: [id number] Modifier: [id number] 1 <+> Patient is Latex Sensitive 1 <+> Isolation Precautions Noted 1 <*> Skin Assessment Verified Yes [facility] IntraOp Intraoperative Equipment Entry 1 Entry 2 Type Equipment Equipment Equipment Equipment Darleen Suction System Darleen Suction System ID Number [id number] Setting Intraop Monitoring Electrocardiogram Five lead placement Five lead placement (ECG) Electrode Placement Blood Pressure Non-Invasive BP Device Non-Invasive BP Device Source Blood Pressure Location Pulse Oximeter Probe Site Antiembolic Devices Antiembolic Devices Sequential compression Sequential compression device, knee high device, knee high, Antiembolic hose, knee high Antiembolic Device Right Right Location Antiembolic Device [id number] ID Number Antiembolic Device Setting Scopes Flexible Endoscopes Used Scope Serial Number/Identificatio n Number Photo/Video Documentation Photo Video Intraop Equipment SCD on non operative SCD on non operative Comment (right) leg and working (right) leg and working prior to induction prior to induction; SAMIA hose on right leg Last Modified By: Jamshid Whitney RN Kesten, Robert I, RN 11/06/20 10:32:09 11/06/20 10:32:09 [facility] IntraOp Intraoperative Equipment Audit 11/06/20 10:32:09 Clothespin Drier Operator: [id number] Modifier: [id number] 1 <*> Equipment Darleen Suction System 1 <*> ID Number [id number] 1 <*> Electrocardiogram (ECG) Electrode Five lead placement Placement 1 <*> Antiembolic Devices Sequential compression device, knee high 1 <*> Antiembolic Device Location Right 1 <*> Blood Pressure Source Non-Invasive BP Device 1 <*> Intraop Equipment Comment SCD on non operative (right) leg and working prior to induction 1 <*> Type Equipment 1 <*> Antiembolic Device ID Number [id number] <+> 2 Equipment <+> 2 ID Number <+> 2 Electrocardiogram (ECG) Electrode Placement <+> 2 Antiembolic Devices <+> 2 Antiembolic Device Location <+> 2 Blood Pressure Source <+> 2 Intraop Equipment Comment <+> 2 Type <+> 2 Antiembolic Device ID Number [facility] IntraOp Medication Admin Entry 1 Entry 2 Entry 3 Medication/Irrigant Bacitracin 50,00units vancomycin 1Gm vial - hydrogen peroxide 16oz powder vial [id number] - [id number] Combo Med List Time Administered Route of Added to irrigation x 2 topical irrigation Administration Dose Dose Unit of Measure Volume Administered By DEAN ALVA KARTHIKEYAN, THARUN, KARTHIKEYAN, THARUN, MD-ORT -ORT -ORT Procedure Irrigation Irrigant Volume In Irrigant Volume Out Last Modified By: Jamshid Whitney RN Kesten, Robert I, RN Kesten, Robert I, JERZY 11/06/20 10:43:32 11/06/20 10:42:25 11/06/20 10:43:32 General Comments: MEDICATIONS 1. TXA 1g to anesthesia 2. TXA 2g to field 3. ropivacaine 0.5% injectable solution 24.6 mL + EPINEPHrine 0.25 mg + cloNIDine 40 mcg + Sodium Chloride to field [facility] IntraOp Medication Admin Audit 11/06/20 10:43:32 Clothespin Drier Operator: [id number] Modifier: [id number] 1 <*> Medication/Irrigant Bacitracin 50,00units powder vial 1 <*> Medication/Irrigant Bacitracin 50,00units powder vial 1 <*> Medication/Irrigant Bacitracin 50,00units powder vial 1 <*> Route of Administration irrigation 1 <*> Route of Administration irrigation 3 <*> Medication/Irrigant hydrogen peroxide 16oz - [id number] 3 <*> Route of Administration 3 <*> Administered By DEAN ALVA MD-ORT 11/06/20 10:42:25 Clothespin Drier Operator: [id number] Modifier: [id number] 2 <*> Medication/Irrigant vancomycin 1Gm vial - [id number] 2 <*> Medication/Irrigant vancomycin 1Gm vial - [id number] 2 <*> Route of Administration 2 <*> Route of Administration 2 <*> Administered By DEAN ALVA MD-ORT 2 <*> Administered By DEAN ALVA MD-ORT [facility] IntraOp Patient Positioning Entry 1 Procedure [...] By DEAN ALVA MD-ORT, MARGA ALBERTS APRN, ANGELA, Jamshid Whitney I, JERZY, Kanwal Tolbert Rn Position Verified Positioning Yes Verified by Anesthesia Positioning Yes Verified by Surgeon Last Modified By: Jamshid Whitney RN 11/06/20 10:39:00 [facility] IntraOp Sign In Entry 1 Patient, [...] Modified By: Jamshid Whitney RN 11/06/20 10:28:44 [facility] IntraOp Sign Out Entry 1 RN [...] Modified By: Jamshid Whitney RN 11/06/20 11:15:30 [facility] IntraOp Sign Out Audit 11/06/20 11:15:30 Clothespin Drier Operator: [id number] Modifier: [id number] <+> 1 RN Sign Out Signature Date/Time [facility] IntraOp Skin Prep Entry 1 Procedure Knee Total Joint Replacement(Left) Prescribed Yes Pre-Surgical Prep Completed Prep Area OPERATIVE THIGH TO TOES CIRCUMFRENTIALLY Intraop Prep Integumentary WDL Assessment WDL Prep Agents Alcohol, Chloraprep, DuraPrep, Chlorhexadine gluconate Prep by Jamshid Whitney RN Hair Removal Methods No hair removal performed Last Modified By: Jamshid Whitney RN 11/06/20 10:28:17 [facility] IntraOp Surgical Procedures Entry 1 Procedure Knee Total Joint Replacement Modifiers Left Additional LEFT TOTAL KNEE Procedure ARHTROPLASTY Description Primary Procedure Yes Primary Surgeon DEAN ALVA MD-ORT Start 11/06/20 10:20:00 Stop 11/06/20 11:31:00 Anesthesia Type General Specialty Orthopedic Wound Class I - Clean Last Modified By: Kanwal Tolbert Rn 11/06/20 12:08:12 [facility] IntraOp Surgical Procedures Audit 11/06/20 12:08:12 Clothespin Drier Operator: [id number] Modifier: [id number] <+> 1 Stop 11/06/20 11:15:33 Clothespin Drier Operator: [id number] Modifier: [id number] <+> 1 Start [facility] IntraOp Temp Regulation Devices Entry 1 Temp Regulation Temperature Forced Air Warming Regulation Device device, Warm blankets, Room temperature Temperature 87114 Regulation Device Serial/Unit Number Temperature Upper body Regulation Site Temperature Device 43 DEGREES CELCIUS Setting Temperature MARGA ALBERTS, Regulation Device COP WINDER, GEOTECHNICIAN Applied by Last Modified By: Jamshid Whitney RN 11/06/20 10:29:13 [facility] IntraOP Time Out Entry 1 Procedure [...] Modified By: Jamshid Whitney RN 11/06/20 10:21:02 [facility] IntraOp Tourniquet Entry 1 Type Pneumatic Serial/Unit Number [id number] Setting 300 mmHg Pheumatic Yes Tourniquet Checked Per Protocol Size 34 inches Placement Thigh, left upper Skin Protection - Yes Padded Under Cuff Applied By DEAN ALVA MD-ORT Removed By DEAN ALVA MD-ORMarycarmen Times Start Time 11/06/20 10:20:00 Stop Time 11/06/20 11:06:00 Last Modified By: Kanwal Tolbert Rn 11/06/20 12:09:31 [facility] IntraOp Tourniquet Audit 11/06/20 12:09:31 Clothespin Drier Operator: [id number] Modifier: [id number] 1 <*> Setting 300 mmHg 1 <*> Applied By DEAN ALVA MD-ORMarycarmen 1 <*> Removed By ARTEI, THARUN, MD-ORT 1 <*> Placement Thigh, left upper 1 <*> Type Pneumatic 1 <*> Serial/Unit Number [id number] 1 <*> Pheumatic Tourniquet Checked Per Yes Protocol 1 <*> Size 34 inches 1 <*> Skin Protection - Padded Under Cuff Yes 1 <*> Start Time 11/06/20 10:20:00 1 <*> Stop Time 11/06/20 11:06:00 Entry 2 was deleted. Higher numbered entries shifted one position to fill the gap. <-> 2 Stop Time 11/06/20 11:16:00 11/06/20 12:09:20 Clothespin Drier Operator: [id number] Modifier: [id number] <+> 1 Placement 11/06/20 12:09:01 Clothespin Drier Operator: [id number] Modifier: [id number] 1 <*> Stop Time 11/06/20 12:08:00 <+> 2 Stop Time 11/06/20 12:08:33 Clothespin Drier Operator: [id number] Modifier: [id number] <+> 1 Stop Time Case Comments <None> [...] on filedocumented in this encounter Care Teams Complex Director Relationship Specialty Start Date End Date Matheus Boggs MD [address] [place] [facility] [address] [place] [phone] PCP - General Family Medicine 09/05/22 documented as of this encounter
--- OUTSIDE RECORDS SUMMARY | 2025-07-06 09:08 | XMS_ITS | Encounter Summary ---
Author Organization [employer] ([place], [place], [place], [place], [place]) Address [address] [place] [address] Care Team Providers Care Elder Assistant Name Role Phone Matheus Boggs MD Primary Care Provider [phone] Encounter Details Date Type Department Care Team (Late st Contact Info) Description 01/31/2020 Transcribed Document [facility] Radiology [address] [place] [phone] Chris Keyes MD [address] [place] [address] Social History Tobacco Use Types Packs/Day Years [...] is a 74 yo female admitted to [facility] [place] per Dr. Gonzalez for a right total knee arthroplasty. Preoperatively patient was found to have advanced osteoarthritis of the right knee and elected surgical intervention after failing conservative treatment. Patient is followed perioperatively while hospitalized for medical management. Initial visit on floor - Denies prior stroke or seizure. Denies SC, CHF or cardiac arrhythmia. Denies DM. Denies [...] mg, Oral, BID allerlgy shots 1, SubCutaneous, [id number] Arnuity Ellipta 100 mcg, PRN, Inhalation, [id number] fexofenadine 180 mg, Oral, Daily fluticasone 50 mcg/inh nasal spray 2 [place], PRN, Nasal, BID hydrochlorothiazide-irbesartan 12.5 mg-150 mg [...] ms QTC Calculation(Bezet) : 420 ms P [place] : 16 degrees R [place] : -6 degrees T [place] : 25 degrees Sinus bradycardia Cannot rule out Anterior infarct (cited on or before 13-JAN-2020) Abnormal ECG When compared with ECG of 13-JAN-2020 10:53, No significant change was found Confirmed by JAKUB ORTIZ M.D. ([id number]), editor continuity and script LILIAN BENÍTEZ ([id number]) on 01/13/2020 3:58:46 PM [...] on filedocumented in this encounter Care Teams Elder Assistant Relationship Specialty Start Date End Date Matheus Boggs MD [address] [place] [address] [place] [phone] PCP - General Family Medicine 09/05/22 documented as of this encounter
--- OUTSIDE RECORDS SUMMARY | 2025-07-06 09:08 | XMS_ITS | Encounter Summary ---
Author Organization [employer] ([place], [place], [place], [place], [place]) Address [address] [place] [address] Care Team Providers Care Funeral Home Associate Name Role Phone Matheus Boggs MD Primary Care Provider + [phone] Encounter Details Date Type Department Care Team (Late st Contact Info) Description 11/06/2020 Transcribed Document [facility] [place] Medicine [address] [place] [address] ProviderCristopher MD [address] [place] [address] Social History Tobacco Use Types [...] Conversion Note - Historical ProviderMD - 11/06/2020 2:44 PM CDT Treatment Intervention, OT Entered On: 11/07/2020 11:49 EDT Performed On: 11/07/2020 10:25 EDT by HANNAH PEREZ OTR/Marianela General Information, OT Visit Type, OT : [...] Treatment Time : 23 Minute(s) HANNAH PEREZ OTR/Marianela - 11/07/2020 11:41 EDT Self Care/Home Management, [...] HANNAH PEREZ OTR/L - 11/07/2020 11:41 EDT Retirement Goals, OT Bathing LTG Grid Goal #1 Activity : Bathing Assist : Independent, modified Date to Meet : 11/20/2020 EDT Goal Status : Initial goal HANNAH PEREZ OTR/Marianela - 11/07/2020 12:31 EDT Dressing, Lower Body LTG Grid Goal #1 Activity : Dressing, Lower Body Assist : Independent, modified Date to Meet : 11/20/2020 EDT Goal Status : Initial goal HANNHA PEREZ OTR/Marianela - 11/07/2020 12:31 EDT Toileting LTG Grid Goal #1 Activity : Toileting Assist : Independent, modified Date to Meet : 11/20/2020 EDT Goal Status : Initial goal HANNAH PEREZ DEBIR/L - 11/07/2020 12:31 EDT Toilet Transfer LTG Grid Goal #1 Activity : Toilet Transfer, Ambulatory Assist : Independent, modified Date to Meet : 11/20/2020 EDT Goal Status : Initial goal HANNAH PEREZ DEBIR/L - 11/07/2020 12:31 EDT Tub/Shower Transfer LTG [...] Treatment : Cont OT POC. HANNAH PEREZ OTNolberto/L - 11/07/2020 11:41 EDT Pain Assessment Pain Score Pre-Intervention : 4 HANNAH PEREZ VERONICA/L - 11/07/2020 12:31 EDT Image 1 - [...] on filedocumented in this encounter Care Teams Funeral Home Associate Relationship Specialty Start Date End Date Matheus Boggs MD [address] [place] [facility] [address] [place] [phone] PCP - General Family Medicine 09/05/22 documented as of this encounter
--- OUTSIDE RECORDS SUMMARY | 2025-07-06 09:08 | XMS_ITS | Encounter Summary ---
Author Organization [employer] ([place], [place], [place], [place], [place]) Address [address] [place] [address] Care Team Providers Care Dump Motorman Name Role Phone Matheus Boggs MD Primary Care Provider + [phone] Encounter Details Date Type Department Care Team (Late st Contact Info) Description 01/28/2020 Transcribed Document [facility] Family Medicine [address] [place] [address] ProviderCristopher MD [address] [place] [address] Social History Tobacco Use Types [...] On: 01/28/2020 13:53 EDT by JOSH MALIK, Bead Maker Primary Insurance Authorization Authorization and Policy Numbers : Insurance 1 Health Plan: MEDICARE Policy Number: [id number] Authorization Number: NPR Insurance 2 Health Plan: AARP N Policy Number: [id number] Authorization Number: NPR Insurance Primary Name : [facility] Authorization Number-Primary : NPR for Medicare Authorized Service Begin Date-Primary : 01/31/2020 EDT Authorization Comments-Primary : pt scheduled for OUT PT total knee replacement (Right) on 01-31-2020 Medicare: NPR Historical Authorization Comments-Primary : No Authorization Comments Found JOSH MALIK, Bead Maker - 01/28/2020 13:53 EDT Electronically signed by [facility] Conversion Building Service Worker Cerner at 11/06/2022 12:59 PM CDT documented in this encounter Plan of Treatment Not on file documented as of this encounter Visit Diagnoses Not on filedocumented in this encounter Care Teams Dump Motorman Relationship Specialty Start Date End Date Mtaheus Boggs MD [address] [facility] [address] [place] [address] PCP - General Family Medicine 09/05/22 documented as of this encounter
--- OUTSIDE RECORDS SUMMARY | 2025-07-06 09:08 | XMS_ITS | Encounter Summary ---
Author Organization [employer] ([place], [place], [place], [place], [place]) Address [address] [place] [address] Care Team Providers Care Split Leather Department Supervisor Name Role Phone Matheus Boggs MD Primary Care Provider + [phone] Encounter Details Date Type Department Care Team (Late st Contact Info) Description 02/01/2020 Transcribed Document [facility] Radiology [address] [place] [phone] Chris Keyes MD [address] [place] [address] Social History Tobacco Use Types Packs/Day Years [...] : 1945 Associated Diagnoses: None Author: LI DIXNO PA-FAM 02/01/2020 cc: medical management s/p right total knee arthroplasty. S: Pt is doing ok. No f'/c/s. No n/v/d. (-) gas, (-) BM. No CP, SOA, palpitations. No cough or sputum. Urinating well. +post op pain. Using incentive spirometer. HPI: Patient is a 74 yo female admitted to [facility] per Dr. Gonzalez for a right total knee arthroplasty. Preoperatively patient was found to have advanced osteoarthritis of the right knee and elected surgical intervention after failing conservative treatment. Patient is followed perioperatively while hospitalized for medical management. Initial visit on floor - Denies prior stroke or seizure. Denies DE, CHF or cardiac arrhythmia. Denies DM. Denies [...] mg, Oral, BID allerlgy shots 1, SubCutaneous, A2Cvgvp Arnuity Ellipta 100 mcg, PRN, Inhalation, [id number] aspirin 81 mg oral tablet 81 mg = 1 Tab, Oral, BID Colace 100 mg oral capsule 100 mg = 1 Cap, PRN, Oral, BID ferrous gluconate 324 mg (37.5 mg elemental iron) oral tablet 324 mg = 1 Tab, Oral, Daily fexofenadine 180 mg, Oral, Daily fluticasone 50 mcg/inh nasal spray 2 [place], PRN, Nasal, BID hydrochlorothiazide-irbesartan 12.5 mg-150 mg [...] mg/dL 02/01/2020 04:53 Glucose Level 148 mg/dL GA 02/01/2020 04:53 Calcium Level 8.4 mg/dL 02/01/2020 04:53 Creatinine Level 0.70 mg/dL 02/01/2020 04:53 Cardiac Markers (Current Encounter/Past 24 Hours) No Cardiac Marker Results Found (Past 24 Hours) CBC Results (Current Encounter/Past 24 Hours) WBC 11.5 K/uL GA 02/01/2020 04:28 Hct 37.7 % 02/01/2020 04:28 [...] mg/dL 02/01/2020 04:53 Glucose Level 148 mg/dL GA 02/01/2020 04:53 Calcium Level 8.4 mg/dL 02/01/2020 [...] ms QTC Calculation(Bezet) : 420 ms P [place] : 16 degrees R [place] : -6 degrees T [place] : 25 degrees Sinus bradycardia Cannot rule [...] health per ortho OK to discharge from IM standpoint pain meds per surgery DVT prophylaxis per surgery bowel regimen at home IS at home Assessment and treatment plan made in conjunction with Blessing Keyes MD Scribed by Sneha Tirado documented in this encounter Plan of Treatment Not on file documented as of this encounter Visit Diagnoses Not on filedocumented in this encounter Care Teams Split Leather Department Supervisor Relationship Specialty Start Date End Date Matheus Boggs MD [address] [place] [facility] [address] [place] [phone] PCP - General Family Medicine 09/05/22 documented as of this encounter
--- OUTSIDE RECORDS SUMMARY | 2025-07-06 09:08 | XMS_ITS | Encounter Summary ---
Author Organization [employer] ([place], [place], [place], [place], [place]) Address [address] [place] [address] Care Team Providers Care Type Inspector Name Role Phone Matheus Boggs MD Primary Care Provider [phone] Encounter Details Date Type Department Care Team (Late st Contact Info) Description 11/06/2020 Transcribed Document [facility] [place] [facility] Family Medicine [address] [place] [address] ProviderCristopher MD [address] [place] [address] Social History Tobacco Use [...] : Yes Joint AcademyType : Online Joint Payroll Consultant Name : daughters: Genesis Aponte Sherry Type of Surgery : Total Knee Replacement, Left Does Patient Have a Walker? : Yes Anticipated Discharge Plan : Home Health PT Anticipated Discharge Plan Comment : Patient plans to d/c home tomorrow with the help of her daughters. She would like to use [facility] for home PT. A pre-referral was [...] on filedocumented in this encounter Care Teams Type Inspector Relationship Specialty Start Date End Date Matheus Boggs MD [address] [place] [phone] PCP - General Family Medicine 09/05/22 documented as of this encounter
--- OUTSIDE RECORDS SUMMARY | 2025-07-06 09:08 | XMS_ITS | Encounter Summary ---
Author Organization [employer] ([place], [place], [place], [place], [place]) Address [address] [place] [address] Care Team Providers Care Professional Fee Coder Name Role Phone Matheus Boggs MD Primary Care Provider + [phone] Encounter Details Date Type Department Care Team (Late st Contact Info) Description 02/07/2020 Transcribed Document [facility] [place] Family Medicine [address] [place] [address] ProviderCristopher MD [address] [place] [address] Social History Tobacco Use Types [...] 02/07/2020 15:20 EDT Electronically signed by Kee [facility] Conversion Forming Tube Selector Cerner at 11/06/2022 12:54 PM CDT documented in this encounter Plan of Treatment Not on file documented as of this encounter Visit Diagnoses Not on filedocumented in this encounter Care Teams Professional Fee Coder Relationship Specialty Start Date End Date Matheus Boggs MD [address] [facility] [address] [place] [phone] PCP - General Family Medicine 09/05/22 documented as of this encounter
--- OUTSIDE RECORDS SUMMARY | 2025-07-06 09:08 | XMS_ITS | Encounter Summary ---
Author Organization [employer] ([place], [place], [place], [place], [place]) Address [address] [place] [address] Care Team Providers Care Punch Molder Name Role Phone Matheus Boggs MD Primary Care Provider + [phone] Encounter Details Date Type Department Care Team (Late st Contact Info) Description 01/31/2020 Transcribed Document [facility] [place] Family Medicine [address] [place] [address] ProviderCristopher MD [address] [place] [address] Social History Tobacco Use Types [...] Cristopher ProviderMD - 01/31/2020 10:35 AM CDT [facility] Main OR Preop Summary Primary Physician: DEAN ALVA MD-ORT Finalized Date/Time: 01/31/20 12:01:49 Pt. Name: MARY WALKER D.O.B./Sex: 1945 Female Med Rec #: [id number] Physician: DEAN ALVA MD-ORT Financial #: [id number] Pt. Type: O Room/Bed: /9 Admit/Disch: 01/31/20 06:33:00 - Institution: [facility] PreOp Case Times Entry 1 In Preop 01/31/20 07:02:00 Ready for Holding n/a Room Patient Ready for 01/31/20 08:41:00 Surgery Patient Out of Preop 01/31/20 10:00:00 Patient Out of n/a Holding Room Last Modified By: Tamar Casiano, Nurse Lead Pl Sql Developer 01/31/20 12:01:45 [facility] PreOp Case Times Audit 01/31/20 12:01:45 Museum Exhibit Designer: ANTONIO Modifier: [id number] <+> 1 Patient Out of Preop 01/31/20 08:41:48 Museum Exhibit Designer: ANTONIO Modifier: [email or web address] <+> 1 Patient Ready for Surgery Finalized By: Tamar Casiano, Nurse Fire Inspector Signatures Signed By: Tamar Casiano Nurse 01/31/20 12:01 Electronically signed by Kee [facility] Conversion Textile Dyer Cerner at 11/06/2022 12:49 PM CDT documented in this encounter Plan of Treatment Not on file documented as of this encounter Visit Diagnoses Not on filedocumented in this encounter Care Teams Punch Molder Relationship Specialty Start Date End Date Matheus Boggs MD [address]10 [facility] [address] [place] [phone] PCP - General Family Medicine 09/05/22 documented as of this encounter
--- OUTSIDE RECORDS SUMMARY | 2025-07-06 09:08 | XMS_ITS | Encounter Summary ---
Author Organization [employer] ([place], [place], [place], [place], [place]) Address [address] [place] [address] Care Team Providers Care Beta Tester Name Role Phone Matheus Boggs MD Primary Care Provider + [phone] Encounter Details Date Type Department Care Team (Late st Contact Info) Description 02/01/2020 Transcribed Document [facility] [place] Family Medicine [address] [place] [address] ProviderCristopher MD [address] [place] [address] Social History Tobacco Use Types [...] Cristopher ProviderMD - 02/01/2020 9:37 AM CDT Patient Education [...] of Dr. Gonzalez or Dr. Arthur, call [phone] If you are a patient of Dr. German, call [phone] Nurse Navigator: Ivanna Carrasco Office: [phone]; ; available during regular business hours documented in this encounter Plan of Treatment Not on file documented as of this encounter Visit Diagnoses Not on filedocumented in this encounter Care Teams Beta Tester Relationship Specialty Start Date End Date Matheus Boggs MD [address] [place] [facility] [address] [place] [phone] PCP - General Family Medicine 09/05/22 documented as of this encounter
--- OUTSIDE RECORDS SUMMARY | 2025-07-06 09:08 | XMS_ITS | Encounter Summary ---
Author Organization [employer] ([place], [place], [place], [place], [place]) Address [address] [place] [address] Care Team Providers Care Aircraft De Icer Installer Name Role Phone Matheus Boggs MD Primary Care Provider + [phone] Encounter Details Date Type Department Care Team (Late st Contact Info) Description 02/01/2020 Transcribed Document [place] Family Medicine [address] [place] [address] ProviderCristopher MD [address] [place] [address] Social History Tobacco Use Types [...] On: 02/01/2020 17:20 EDT by NAGI TAPIA RN-Coffee Shop AttendantRouge Sifter Progress Note Discharge Arrangements : Patient Post-Acute [...] you Attend Multidisciplinary Rounds? : Yes NAGI TAPIA, RN-Coffee Shop Attendant - 02/01/2020 17:20 EDT Electronically signed by [facility] Conversion Student Affairs Dean Cerner at 11/06/2022 1:00 PM CDT documented in this encounter Plan of Treatment Not on file documented as of this encounter Visit Diagnoses Not on filedocumented in this encounter Care Teams Aircraft De Icer Installer Relationship Specialty Start Date End Date Matheus Boggs MD [address] [facility] [address] [place] [phone] PCP - General Family Medicine 09/05/22 documented as of this encounter
--- OUTSIDE RECORDS SUMMARY | 2025-07-06 09:08 | XMS_ITS | Encounter Summary ---
Author Organization [employer] ([place], [place], [place], [place], [place]) Address [address] [place] [address] Care Team Providers Care Disposal Plant Operator Name Role Phone Matheus Boggs MD Primary Care Provider + [phone] Encounter Details Date Type Department Care Team (Late st Contact Info) Description 11/06/2020 Transcribed Document [facility] [place] [address] [place] [address] ProviderCristopher MD [address] [place] [address] Social History Tobacco Use Types [...] CDT [facility] Main OR Preop Summary Primary Physician: DEAN ALVA MD-ORT Finalized Date/Time: 11/06/20 14:39:17 Pt. Name: MARY WALKER D.O.B./Sex: 1945 Female Med Rec #: [id number] Physician: DEAN ALVA MD-ORT Financial #: [id number] Pt. Type: O Room/Bed: 637/1 Admit/Disch: 11/06/20 06:53:00 - Institution: [facility] PreOp Case Times Entry 1 In Preop 11/06/20 07:39:00 Ready for Holding n/a Room Patient Ready for 11/06/20 09:13:00 Surgery Patient Out of Preop 11/06/20 09:46:00 Patient Out of n/a Holding Room Last Modified By: PARIS LOMBARDI RN 11/06/20 14:39:[address] [facility] PreOp Case Times Audit 11/06/20 14:39:12 Patent Law Specialist: MICAELA Modifier: MARIA ANTONIA <+> 1 Patient Out of Preop Finalized By: PARIS LOMBARDI RN Document Signatures Signed By: PARIS LOMBARDI RN 11/06/20 14:39 Electronically signed by Kee [facility] Conversion Continuous Improvement Intern Cerner at 11/06/2022 1:07 PM CDT documented in this encounter Plan of Treatment Not on file documented as of this encounter Visit Diagnoses Not on filedocumented in this encounter Care Teams Disposal Plant Operator Relationship Specialty Start Date End Date Matheus Boggs MD [address] [facility] [address] [place] [phone] PCP - General Family Medicine 09/05/22 documented as of this encounter
--- OUTSIDE RECORDS SUMMARY | 2025-07-06 09:09 | XMS_ITS | Encounter Summary ---
Author Organization [employer] ([place], [place], [place], [place], [place]) Address [address] [place] [address] Care Team Providers Care Test Preparer Name Role Phone Matheus Boggs MD Primary Care Provider [phone] Encounter Details Date Type Department Care Team (Late st Contact Info) Description 11/06/2020 Transcribed Document [facility] [place] Family Medicine [address] [place] [address] ProviderCristopher MD [address] [place] [address] Social History Tobacco Use Types [...] Ambulatory Legal Guardian : Daughter Support Person/Patient Plastic Sheets Finishing Supervisor : Yes Support Person/Pt Rep Name : Bibiana Montelongo dtr Support Person/Pt Rep Contact Information : [phone] Bibiana Edmond Family/Rep/Phys Notified of Admit : No Emergency Contact #1 : `SHIRA Jeter RN - 11/06/2020 13:58 EDT Emergency Contact #1 SHIRA STEEL RN - 11/06/2020 18:14 EDT Emergency Contact #1 Relationship : daughter` SHIRA SHARMA RN - 11/06/2020 13:58 EDT Emergency Contact #2 : fay Emergency Contact #2 Phone Number : `[phone] Emergency Contact #2 Relationship : `daughter SHIRA SHARMA RN - 11/06/2020 18:14 EDT Information Obtained From : Patient Primary Language : Nepalese Preferred Communication Mode : Verbal Communication Barrier : None Church Secretary Needed : No Objects to Sharing Info [...] Scale Risk Level : 25-45 Medium Risk Cut Bank Fall Interventions : Adequate lighting, Assistive devices [...] Smokeless Tobacco Status : Never Implant/Device Type, Deck Builder and Model : knee replacement abdominal mesh [...] Source : Measured Height Entry Format : [place] Height, Feet : 0 ft(Converted to: 0 cm, 0 Inch) Height, Inches : 60.5 Inch(Converted to: 5 ft 0 Inch, 153.67 cm) Clinical Height : 153.67 cm Weight Source : Standing scale Weight Entry Format : [place] Clinical Dosing Weight : 80.68 kg Weight, Pounds : 177.5 lb Body Surface Area (BSA) : 1.79 m2 Body Mass Index : 34.2 kg/m2 (HI) [place] Body Weight : 46 kg SHIRA SHARMA [...] SHIRA SHARMA RN - 11/06/2020 14:06 EDT [place] Suicide Severity Rating Scale (C-SSRS) CSSRS Past [...] on filedocumented in this encounter Care Teams Test Preparer Relationship Specialty Start Date End Date Matheus Boggs MD [address] [facility] [address] [place] [phone] PCP - General Family Medicine 09/05/22 documented as of this encounter
--- OUTSIDE RECORDS SUMMARY | 2025-07-06 09:09 | XMS_ITS | Encounter Summary ---
Author Organization [employer] ([place], [place], [place], [place], [place]) Address [address] [place] [address] Care Team Providers Care B2B Sales Executive Name Role Phone Matheus Boggs MD Primary Care Provider [phone] Encounter Details Date Type Department Care Team (Late st Contact Info) Description 11/06/2020 Transcribed Document [facility] Radiology [address] [place] [phone] Lizz Gonzalez MD [facility] [place] [address] Social History Tobacco Use Types Packs/Day Years [...] Diagnosis Osteoarthritis left knee *Surgeon(s) Surgeon: Carlos Textile Slitting Machine Operator: Devin Ventura CSA *Procedure Narrative Patient identified [...] and PCL were resected. Next, distal femoral automatic pilot mechanic hole was drilled and the intramedullary guide [...] Bovie. Femur was sized. The FuZion gap budget controller was placed and tensed. Posterior condyle resection as noted above. Drill holes made through the budget controller and the appropriately sized four-in-one block placed [...] on filedocumented in this encounter Care Teams B2B Sales Executive Relationship Specialty Start Date End Date Matheus Boggs MD [address] [facility] [address] [place] [phone] PCP - General Family Medicine 09/05/22 documented as of this encounter
--- OUTSIDE RECORDS SUMMARY | 2025-07-06 09:09 | XMS_ITS | Encounter Summary ---
Author Organization [employer] ([place], [place], [place], [place], [place]) Address [address] [place] [address] Care Team Providers Care Office Clerk Name Role Phone Matheus Boggs MD Primary Care Provider [phone] Encounter Details Date Type Department Care Team (Late st Contact Info) Description 11/06/2020 Transcribed Document [facility] Family Medicine [address] [place] [address] ProviderCristopher MD [address] [place] [address] Social History Tobacco Use Types [...] on filedocumented in this encounter Care Teams Office Clerk Relationship Specialty Start Date End Date Matheus Boggs MD [address] [place] [facility] [address] [place] [phone] PCP - General Family Medicine 09/05/22 documented as of this encounter
--- OUTSIDE RECORDS SUMMARY | 2025-07-06 09:09 | XMS_ITS | Encounter Summary ---
Author Organization [employer] ([place], [place], [place], [place], [place]) Address [address] [place] [address] Care Team Providers Care Residential Support Worker Name Role Phone Matheus Boggs MD Primary Care Provider [phone] Encounter Details Date Type Department Care Team (Late st Contact Info) Description 11/06/2020 Transcribed Document [facility] Radiology [address] [place] [phone] Chris Keyes MD [address] [place], [place] [id number] Social History Tobacco Use Types Packs/Day Years [...] Associated Diagnoses: None Author: LI DIXON PA-SANDRA 11/06/2020 cc: medical management s/p left total knee arthroplasty HPI: Patient is a 75 yo female admitted to [facility] per Dr. Gonzalez for a left total [...] Daily Arnuity Ellipta 100 mcg, PRN, Inhalation, [id number] fexofenadine 180 mg, Oral, Daily fluticasone 50 mcg/inh nasal spray 2 [place], PRN, Nasal, BID hydrochlorothiazide-irbesartan 12.5 mg-150 mg [...] 08:33) SpO2 98 (NOV 06:11) 97 (NOV 06:33) 98 (NOV 06 09:11) GEN: sleepy, NAD [...] on filedocumented in this encounter Care Teams Residential Support Worker Relationship Specialty Start Date End Date Matheus Boggs MD [address] [place] [facility] [address] [place] [phone] PCP - General Family Medicine 09/05/22 documented as of this encounter
--- OUTSIDE RECORDS SUMMARY | 2025-07-06 09:09 | XMS_ITS | Encounter Summary ---
Author Organization [employer] ([place], [place], [place], [place], [place]) Address [address] [place] [address] Care Team Providers Care Medical Billing Coordinator Name Role Phone Matheus Boggs MD Primary Care Provider + [phone] Encounter Details Date Type Department Care Team (Late st Contact Info) Description 11/06/2020 Transcribed Document [facility] [address] [place] [address] ProviderCristopher MD [address] [place] [address] Social History Tobacco Use Types [...] On: 11/06/2020 14:22 EDT by EDU BARNES, UMANG General Information, [...] EDT Treatment Time : 12 Minute(s) EDU BARNES PT - 11/06/2020 14:22 EDT History and [...] : Gait belt, Walker, front wheel EDU BARNES PT - 11/06/2020 14:22 EDT Neuromuscular Reeducation, PT Balance Comment : SBA static sitting, Mirza static standing with RWx EDU BARNES PT - 11/06/2020 14:22 EDT Neurological/Sensory Overall Sensory Response : Intact EDU BARNES, PT - 11/06/2020 14:22 EDT Activity Tolerance, [...] None evident Rehabilitation Potential : Good EDU ABRNES, PT - 11/06/2020 14:22 EDT Plan of Care, PT PT Tx Plan/Goals Established w Patient : Yes PT Frequency Rehab : Daily, twice (bid) PT Duration Rehab : Fourteen days PT Treatments Planned : Gait training, Stair training, Therapeutic exercises, Transfer training EDU BARNES, PT - 11/06/2020 14:22 EDT Tubular Products Fabricator Goals Mobility/Bed Mobility LTG PT Grid Goal [...] EDU BARNES PT - 11/06/2020 14:22 EDT Electronically signed by Kee [facility] Conversion Recording Studio Internship Cerner at 11/06/2022 12:57 PM CDT documented in this encounter Plan of Treatment Not on file documented as of this encounter Visit Diagnoses Not on filedocumented in this encounter Care Teams Medical Billing Coordinator Relationship Specialty Start Date End Date Matheus Boggs MD [address] [place] [facility] [address] [place] [phone] PCP - General Family Medicine 09/05/22 documented as of this encounter
--- OUTSIDE RECORDS SUMMARY | 2025-07-06 09:09 | XMS_ITS | Encounter Summary ---
Author Organization [employer] ([place], [place], [place], [place], [place]) Address [address] [place] [address] Care Team Providers Care Diesel Engine Assembler Name Role Phone Matheus Boggs MD Primary Care Provider + [phone] Encounter Details Date Type Department Care Team (Late st Contact Info) Description 11/06/2020 Transcribed Document [facility] Family Medicine [address] [place] [address] ProviderCristopher MD [address] [place] [address] Social History Tobacco Use Types [...] Performed On: 11/06/2020 13:50 EDT by HANNAH PEREZ OTR/Marianela General Information, OT Visit Type, OT : Initial evaluation Patient Orders : Order Date Order Ordering 11/06/2020 12:55 OT Evaluation and Treatment Ordered By: DEAN ALVA MD-ORT 11/06/2020 12:55 OT Treatment Instructions Ordered By: DEAN AVLA MD-ORT Active Diagnoses : No Qualifying Diagnoses [...] HANNAH PEREZ OTR/Marianela - 11/06/2020 14:32 EDT Residential Goals, OT Bathing LTG Grid Goal #1 [...] admission. Plan for Treatment : See goals. ANA, HANNAH OTNolberto/L - 11/06/2020 14:32 EDT Pain Assessment Pain Score Pre-Intervention : 0 ANA, HANNAH OTR/L - 11/06/2020 14:32 EDT Image 1 - Images currently included in the form version of this document have not been included in the text rendition version of the form. [place] OT Charges OT Eval Low Complexity : 1 ANA, HANNAH OTR/L - 11/06/2020 14:32 EDT Electronically signed by [facility] Conversion Attractions Associate Cerner at 11/06/2022 1:10 PM CDT documented in this encounter Plan of Treatment Not on file documented as of this encounter Visit Diagnoses Not on filedocumented in this encounter Care Teams Diesel Engine Assembler Relationship Specialty Start Date End Date Matheus Boggs MD [address] [place] [facility] [address] [place] [phone] PCP - General Family Medicine 09/05/22 documented as of this encounter
--- OUTSIDE RECORDS SUMMARY | 2025-07-06 09:09 | XMS_ITS | Clinical Summary ---
Author Organization [facility] Address [address] [place] [address] Care Team Providers Care Waterproofing Machine Operator Name Role Phone Unavailable Primary Care Provider [...]
--- OUTSIDE RECORDS SUMMARY | 2025-07-06 09:09 | XMS_ITS | Encounter Summary ---
Author Organization [employer] ([place], [place], [place], [place], [place]) Address [address] [place] [address] Care Team Providers Care Labor Relations Representative Name Role Phone Matheus Boggs MD Primary Care Provider + [phone] Encounter Details Date Type Department Care Team (Late st Contact Info) Description 11/06/2020 Transcribed Document [facility] [place] Family Medicine [address] [place] [address] ProviderCristopher MD [address] [place] [address] Social History Tobacco Use Types [...] the form. Electronically signed by Kee [facility] Conversion Tapper Hand Cerner at 11/06/2022 1:12 PM CDT documented in this encounter Plan of Treatment Not on file documented as of this encounter Visit Diagnoses Not on filedocumented in this encounter Care Teams Labor Relations Representative Relationship Specialty Start Date End Date Matheus Boggs MD [address] [facility] [address] [place] [phone] PCP - General Family Medicine 09/05/22 documented as of this encounter
--- OUTSIDE RECORDS SUMMARY | 2025-07-06 09:09 | XMS_ITS | Encounter Summary ---
Author Organization [employer] ([place], [place], [place], [place], [place]) Address [address] [place] [address] Care Team Providers Care Manager Talent Acquisition Name Role Phone Matheus Boggs MD Primary Care Provider [phone] Encounter Details Date Type Department Care Team (Late st Contact Info) Description 11/06/[address] [facility] [place] Family Medicine [address] [place] [address] ProviderCristopher MD [address] [place] [address] Social History Tobacco Use Types [...] - 11/06/2020 9:09 EDT Electronically signed by [facility] Conversion Intelligence Research Specialist Cerner at 11/06/2022 12:55 PM CDT documented in this encounter Plan of Treatment Not on file documented as of this encounter Visit Diagnoses Not on filedocumented in this encounter Care Teams Manager Talent Acquisition Relationship Specialty Start Date End Date Mtaheus Boggs MD [address] [place] [address] PCP - General Family Medicine 09/05/22 documented as of this encounter
--- OUTSIDE RECORDS SUMMARY | 2025-07-06 09:09 | XMS_ITS | Encounter Summary ---
Author Organization [employer] ([place], [place], [place], [place], [place]) Address [address] [place] [address] Care Team Providers Care Teaching Specialists Name Role Phone Matheus Bgogs MD Primary Care Provider + [phone] Encounter Details Date Type Department Care Team (Late st Contact Info) Description 11/06/2020 Transcribed Document [facility] Radiology [address] [place] [phone] Lizz Gonzalez MD [facility][note 3][address] [place] [address] Social History Tobacco Use Types Packs/Day Years [...] Female : 1945 Associated Diagnoses: None Author: COMERFAY APRN Chief Complaint L knee pain Review of [...] Oral, Daily Arnuity Ellipta: 100 mcg, Inhalation, [id number], PRN: Wheezing, 0 Refill(s) Levoxyl: 125 mcg, Oral, Daily, 0 Refill(s) Singulair: 10 mg, Oral, At Bedtime, 0 Refill(s) Ventolin HFA: 2 Puff, Inhalation, Q4H, PRN: as needed for wheezing, 0 Refill(s) acebutolol: 200 mg, Oral, BID, 0 Refill(s) fexofenadine: 180 mg, Oral, Daily, 0 Refill(s) fluticasone 50 mcg/inh nasal spray: 2 [place], Nasal, BID, PRN: Allergies, 16 Gram, 0 [...] Daily Arnuity Ellipta 100 mcg, PRN, Inhalation, [id number] fexofenadine 180 mg, Oral, Daily fluticasone 50 mcg/inh nasal spray 2 [place], PRN, Nasal, BID hydrochlorothiazide-irbesartan 12.5 mg-150 mg [...] Problems Urinary tract infection / SNOMED CT 835051497 / Confirmed hypo Thyroid disease / SNOMED CT 300432178 / Confirmed Sinusitis / SNOMED CT 60274615 / Confirmed Seasonal allergies / SNOMED CT 9192228783 / Confirmed Renal calculus / SNOMED CT 884462397 / Confirmed Thyroid mass benign / SNOMED CT 2595278101 / Confirmed Irritable bowel syndrome / SNOMED CT 56511348 / Confirmed Incontinence/Frequency / SNOMED CT 76051941 / Confirmed Hyperlipidemia / SNOMED CT 22610428 / Confirmed High blood pressure / SNOMED CT 53213093 / Confirmed Hiatal hernia / SNOMED CT 174995930 / Confirmed Hemorrhoids / SNOMED CT 609961819 / Confirmed Hard of hearing has aides / SNOMED CT 187347839 / Confirmed Shortness of breath / SNOMED CT 300864818 / Confirmed Difficulty swallowing / SNOMED CT 82062606 / Confirmed H/O bilateral Cataract / SNOMED CT 021684861 / Confirmed Cardiac syndrome X / SNOMED CT 258764951 / Confirmed Bursitis / SNOMED CT 115759299 / Confirmed At risk for sleep apnea / IMO 09705873 / Confirmed Asthma / SNOMED CT 604192487 / Confirmed Arthritis osteo / SNOMED CT 6291614 / Confirmed Angina / SNOMED CT 380903590 / Confirmed Allergic rhinitis / SNOMED CT 677435876 / Confirmed, Active Problems (23) Allergic rhinitis [...] repair. right knee replacement. EGD - Esophagogastroduodenoscopy ([id number]). catarct ext. iol ou. Social History Social [...] Extraocular movements are intact, glasses. HENT: Normocephalic, [place]. Neck: Supple, Non-tender. Respiratory: Lungs are clear to auscultation, Respirations are non-labored. Cardiovascular: Normal rate, Regular rhythm, No murmur, No gallop, No edema. Gastrointestinal: Soft, Non-tender. Genitourinary: No costovertebral angle tenderness. Lymphatics: No lymphadenopathy neck, axilla, groin. Musculoskeletal: painful ROM L knee, LLE weakness, see comprehensive ortho exam in office notes. Integumentary: Warm, Dry, [place]. Neurologic: Alert, Oriented. Psychiatric: Cooperative, Appropriate mood [...] on filedocumented in this encounter Care Teams Teaching Specialists Relationship Specialty Start Date End Date Matheus Boggs MD [address] [place] [facility] [address] [place] [phone] PCP - General Family Medicine 09/05/22 documented as of this encounter
--- OUTSIDE RECORDS SUMMARY | 2025-07-06 09:09 | XMS_ITS | Encounter Summary ---
Author Organization [employer] ([place], [place], [place], [place], [place]) Address [address] [place] [address] Care Team Providers Care Hand Mixer Name Role Phone Matheus Boggs MD Primary Care Provider + [phone] Encounter Details Date Type Department Care Team (Late st Contact Info) Description 11/06/2020 Transcribed Document [facility] Family Medicine [address] [place] [address] ProviderCristopher MD [address] [place] [address] Social History Tobacco Use Types [...] Instructions Ordered By: DEAN ALVA MD-ORT 11/06/2020 14:27 PT Additional Treatment Ordered By: [...] EDU BARNES PT - 11/07/2020 11:58 EDT Spreading Machine Operator Goals Mobility/Bed Mobility LTG PT Grid Goal [...] ROM. Additional Objective Information : No Joint Set Up Mechanic Coil Winding Machines present throughout L knee ROM 0-96 degrees [...] the text rendition version of the form. [place] [facility] Charges PT Therap. Exercise 15 min : 1 Gait Training Each 15 Min : 1 EDU BARNES, PT - 11/07/2020 11:58 EDT Electronically signed by [facility] Conversion Bingo Usher Cerner at 11/06/2022 12:57 PM CDT documented in this encounter Plan of Treatment Not on file documented as of this encounter Visit Diagnoses Not on filedocumented in this encounter Care Teams Hand Mixer Relationship Specialty Start Date End Date Matheus Boggs MD [address] [facility] [address] [place] [phone] PCP - General Family Medicine 09/05/22 documented as of this encounter
--- OUTSIDE RECORDS SUMMARY | 2025-07-06 09:09 | XMS_ITS | Encounter Summary ---
Author Organization [employer] ([place], [place], [place], [place], [place]) Address [address] [place] [address] Care Team Providers Care Apprentice Painter Neckties Name Role Phone Matheus Boggs MD Primary Care Provider + [phone] Encounter Details Date Type Department Care Team (Late st Contact Info) Description 11/01/2020 Transcribed Document [facility] [place] [address] [place] [address] ProviderCristopher MD [address] [place] [address] Social History Tobacco Use Types [...] Cerner Conversion Note - Historical ProviderMD - 11/01/2020 1:07 PM CDT Orthopedic Nurse Navigator Entered On: 11/01/2020 13:09 EDT Performed On: 11/01/2020 13:07 EDT by Tere Carrasco RN-Navigator Orthopedic Nurse Navigator Assessment Joint Navigator Assessment Note : Prereferral for [facility] PT sent yesterday. Tere Carrasco RN-Navigator - 11/01/2020 13:07 EDT Electronically signed by Benjamin Sweet Conversion Warehouse Administrative Assistant Cerner at 11/06/2022 12:55 PM CDT documented in this encounter Plan of Treatment Not on file documented as of this encounter Visit Diagnoses Not on filedocumented in this encounter Care Teams Apprentice Painter Neckties Relationship Specialty Start Date End Date Matheus Boggs MD [address] [place] [address] [place] [phone] PCP - General Family Medicine 09/05/22 documented as of this encounter
--- OUTSIDE RECORDS SUMMARY | 2025-07-06 09:09 | XMS_ITS | Encounter Summary ---
Author Organization [employer] ([place], [place], [place], [place], [place]) Address [address] [place] [address] Care Team Providers Care Fence Setter Name Role Phone Matheus Boggs MD Primary Care Provider + [phone] Encounter Details Date Type Department Care Team (Late st Contact Info) Description 11/06/2020 Transcribed Document [facility] [address] [place] [address] ProviderCristopher MD [address] [place] [address] Social History Tobacco Use Types [...] Historical ProviderMD - 11/06/2020 12:55 PM CDT Education-(VTE) [...] - 11/06/2020 14:32 EDT Electronically signed by [facility] Conversion Doctor Naturopathic Cerner at 11/06/2022 12:55 PM CDT documented in this encounter Plan of Treatment Not on file documented as of this encounter Visit Diagnoses Not on filedocumented in this encounter Care Teams Fence Setter Relationship Specialty Start Date End Date Matheus Boggs MD [address] [place] [phone] PCP - General Family Medicine 09/05/22 documented as of this encounter
--- OUTSIDE RECORDS SUMMARY | 2025-07-06 09:09 | XMS_ITS | Encounter Summary ---
Author Organization [employer] ([place], [place], [place], [place], [place]) Address [address] [place] [address] Care Team Providers Care Assistant Manager Bilingual Name Role Phone Matheus Boggs MD Primary Care Provider + [phone] Encounter Details Date Type Department Care Team (Late st Contact Info) Description 11/06/2020 Transcribed Document [facility] [place] [address] [place] [address] ProviderCristopher MD [address] [place] [address] Social History Tobacco Use Types [...] 11/06/2020 17:09 EDT Electronically signed by Kee [facility] Conversion Project Superintendent Cerner at 11/06/2022 12:53 PM CDT documented in this encounter Plan of Treatment Not on file documented as of this encounter Visit Diagnoses Not on filedocumented in this encounter Care Teams Assistant Manager Bilingual Relationship Specialty Start Date End Date Matheus Boggs MD [address] [place] [facility] [address] [place] [phone] PCP - General Family Medicine 09/05/22 documented as of this encounter
--- OUTSIDE RECORDS SUMMARY | 2025-07-06 09:09 | XMS_ITS | Encounter Summary ---
Author Organization [employer] ([place], [place], [place], [place], [place]) Address [address] [place] [address] Care Team Providers Care Mold Yard Crane Operator Name Role Phone Matheus Boggs MD Primary Care Provider + [phone] Encounter Details Date Type Department Care Team (Late st Contact Info) Description 11/06/2020 Transcribed Document [facility] [place] [address] [place] [address] ProviderCristopher MD [address] [place] [address] Social History Tobacco Use Types [...] Cristopher ProviderMD - 11/06/2020 10:20 AM CDT [facility] Main OR PACU Summary Primary Physician: DEAN ALVA MD-ORT Finalized Date/Time: 11/06/20 12:55:13 Pt. Name: MARY WALKER D.O.B./Sex: 1945 Female Med Rec #: [id number] Physician: DEAN ALVA MD-ORT Financial #: [id number] Pt. Type: O Room/Bed: [facility]/ Admit/Disch: 11/06/20 06:53:00 - Institution: [facility] OR PACU I Case Times Entry 1 In PACU I 11/06/20 11:38:00 Ready for PACU 11/06/20 12:38:00 Discharge Discharge from PACU 11/06/20 12:38:00 I Last Modified By: Michelle Chawla Rn 11/06/20 12:52:56 Finalized By: Michelle Chawla, Rn Document Signatures Signed By: Michelle Chawla Rn 11/06/20 12:55 Electronically signed by Kee [facility] Conversion Marketing Communication Manager Cerner at 11/06/2022 1:11 PM CDT documented in this encounter Plan of Treatment Not on file documented as of this encounter Visit Diagnoses Not on filedocumented in this encounter Care Teams Mold Yard Crane Operator Relationship Specialty Start Date End Date Matheus Boggs MD [address] [facility] [address] [place] [phone] PCP - General Family Medicine 09/05/22 documented as of this encounter
--- OUTSIDE RECORDS SUMMARY | 2025-07-06 09:09 | XMS_ITS | Clinical Summary ---
Author Organization [employer] Address [address] [facility] [place] [address] Phone Care Team Providers Care Locker Attendant Name Role Phone Matheus Boggs MD Primary Care Provider + [phone] Social History Tobacco Use Types Packs/Day Years [...] A AND B AARP SUPPLEMENTAL Care Teams Locker Attendant Relationship Specialty Start Date End Date Matheus Boggs MD [address] [place] [address] [place] [phone] PCP - General Family Medicine 12/02/16
--- OUTSIDE RECORDS SUMMARY | 2025-07-06 09:09 | XMS_ITS | Encounter Summary ---
Author Organization [employer] ([place], [place], [place], [place], [place]) Address [address] [place] [address] Care Team Providers Care Photovoltaic Fabrication Technician Name Role Phone Matheus Boggs MD Primary Care Provider [phone] Encounter Details Date Type Department Care Team (Late st Contact Info) Description 11/01/2020 Transcribed Document [facility] [place] Family Medicine [address] [place] [address] ProviderCristopher MD [address] [place] [address] Social History Tobacco Use Types [...] On: 11/01/2020 14:30 EDT by JOSH MALIK, Belt Loop Cutter Primary Insurance Authorization Authorization and Policy Numbers : Insurance 1 Health Plan: MEDICARE Policy Number: [id number] Authorization Number: Insurance 2 Health Plan: AARP N Policy Number: [id number] Authorization Number: Insurance Primary Name : Medicare Authorization Status-Primary : No precert required Authorization Number-Primary : NPR for Medicare Authorized Service Begin Date-Primary : 11/06/2020 EDT Authorization Comments-Primary : Pt is brunilda for OUT PT total knee replacement on Friday11-06-20 Medicare: NPR Historical Authorization Comments-Primary : No Authorization Comments Found JOSH MALIK, Belt Loop Cutter - 11/01/2020 14:30 EDT Secondary Insurance Authorization Authorization and Policy Numbers : Insurance 1 Health Plan: MEDICARE Policy Number: [id number] Authorization Number: Insurance 2 Health Plan: AARP N Policy Number: [id number] Authorization Number: Insurance Secondary Name : AARP Authorized Service Begin Date-Secondary : 11/06/2020 EDT Historical Authorization Comments-Secondary : No Authorization Comments Found JOSH MALIK, Belt Loop Cutter - 11/01/2020 14:30 EDT Electronically signed by Kee [facility] Conversion Hide Trimmer Cerner at 11/06/2022 12:50 PM CDT documented in this encounter Plan of Treatment Not on file documented as of this encounter Visit Diagnoses Not on filedocumented in this encounter Care Teams Photovoltaic Fabrication Technician Relationship Specialty Start Date End Date Matheus Boggs MD [address] [facility] [address] [place] [phone] PCP - General Family Medicine 09/05/22 documented as of this encounter
[2025-07-06 09:32] VITALS: BMI 32.8
[2025-07-06 09:37] VITALS: BP 151/78; PULSE 63; RESP 18; TEMP 36.6; O2SAT 97
[2025-07-06 09:47] LABS: Anion Gap 12.9 mEq/L (5-15); Blood Urea Nitrogen 29 mg/dl (7-17); Calcium 9.7 mg/dl (8.4-10.2); Carbon Dioxide 28 mmol/L (22.0-30.0); Chloride 99 mmol/L (98-107); Creatinine Clearance Estimated 56 mL/min (50-200); Creatinine,Serum 0.90 mg/dl (0.52-1.04); Estimated Glomerular Filt Rate 60 ml/min (>60); GFR (African American) 73 ML/MIN (>60); Glucose 129 mg/dl (74-100); Potassium 3.9 mmoL/L (3.5-5.1); Sodium 136 mmol/L (136-145)
--- NOTE | 2025-07-06 10:00 | CT_ITS ---
APPROVED REPORT Modeling Analyst: CLINICAL INDICATION Chest Pain TECHNIQUE Image Acquisition: A 128 slice MDCT scanner ([employer] View) was used for data acquisition. A noncontrast coronary calcium scan was performed. A CT attenuation threshold of 130 Hounsfield units (HU) was used for the detection of calcium in contiguous voxels of 1 sq mm in area to be counted as individual lesions. Bolus tracking in the ascending aorta with a threshold of 180 HU was performed. Immediately afterwards, ECG synchronized cardiac CT was then performed from the cardiac base to apex using retrospective gating with ECG tube current modulation. A total of 85 mL of Isovue 370 mg/mL contrast medium was administered at 5 mL/sec followed by a saline flush using a biphasic injection protocol. A tube voltage of 120 KVp was used. The patient received the following medications prior to the cardiac CT. 0.4 mg of sublingual nitroglycerin The average heart rate at the time of acquisition was 63 bpm and regular. Image Reconstruction Transaxial images were reconstructed at 0.67 mm slide thickness. Data was reviewed interactively on an advanced workstation capable of 2 and 3-dimensional displays in all conventional reconstruction formats, including multiplanar reformations, maximum intensity projections, curved multiplanar reformations, and volume rendered reconstructions. When applicable, selected routine images describing the relevant coronary anatomy and pathology were saved and sent to PACS. Complications None Technical Quality Overall image quality was good. Coronary artery opacification was adequate. Total DLP (Dose-Length Product) is 2415 mGy-cm. The reported value represents the total of one or more individual components during the CT acquisition of this date and at this time, and as such, the same value may appear in more than one CT report depending on the interpreting/reporting physicians. COMPARISON None FINDINGS CT Coronary Calcium Scoring LMA (Left Main Artery) = 0 LAD (Left Anterior Descending) = 157 LCX (Left Coronary Circumflex) = 10 RCA (Right Coronary Artery) = 0 Total Calcium Score = 167 using the AJ-130 method. The observed calcium score of 167 is at 69th percentile for subjects of the same age, sex, and race/ethnicity. The interpretation of the calcium heart score is based on the following continuum*: 0 = no calcified plaque detected (risk of coronary artery disease is very low ??? less than 5%) 1-10 = calcium detected in extremely minimal levels (risk of coronary diseases is still low ??? less than 10%) 11-100 = mild levels of plaque detected with certainty (mild or minimal narrowing of heart arteries is likely) 101-400 = definite,at least moderate levels of plaque detected (relatively high risk of a heart attack within 3-5 years) >401-999 = extensive levels of plaque detected (high risk of heart attack, high levels of vascular disease are present, high likelihood of at least one significant coronary narrowing) *The calcium heart score quantifies the burden of coronary calcification/plaque in the coronary arteries. The calcium heart score is not able to evaluate the presence or burden of non-calcified (i.e. soft) plaque. There is also calcification in the aortic valve and ascending/descending thoracic aorta. Coronary CT Angiography The coronary arterial system is right dominant. Quantitative Stenosis Grading: Left Main (LM): The left main originates normally from the left sinus of Valsalva. The LM bifurcates into the left anterior descending artery and left circumflex artery. The LM is patent with no evidence of atherosclerosis. Left Anterior Descending (LAD) and Diagonal Branches: The LAD gives off 3 diagonal branch(es). There is mixed calcified/non-calcified plaque in the proximal LAD segment, with up to 50-70% luminal stenosis. There is no evidence of LAD-myocardial bridge. Left Circumflex (LCX) and Obtuse Marginals (OM): The LCX gives off 1 Obtuse Marginal (OM) branch(es). There is calcified plaque in the proximal LCX segment, with < 25% luminal stenosis. Right Coronary Artery (RCA): The RCA originates normally from the right sinus of Valsalva. The RCA gives off a posterior descending artery (PDA) and posterolateral (PL) branches. The RCA and its branches are patent with no evidence of atherosclerosis. Non-Coronary Cardiac Findings: Analysis of the left ventricular (LV) structure and function was performed after 3-D reconstruction of the LV from axial images, with user-corrected automatic contouring for assessment of LV volumes and user-defined reconstruction from oblique planes for measurement of 3-D cardiac structure and function. -The left ventricle systolic function is normal. -There is no left atrial appendage filling defect. Two right pulmonary veins and two left pulmonary veins drain normally into the left atrium. -No pericardial thickening or calcification. -Central and branch pulmonary arteries in the [id number] are unremarkable. -Thoracic aorta within the visualized thoracic aortic-branches in the [id number] is unremarkable. Extracardiac Structures No significant extra-cardiac findings. Note, however, that this study is focused on the cardiac findings. IMPRESSION -Presence of coronary calcification with an Agatston score = 167 using the AJ-130 method. -The observed calcium score of 167 is at 69th percentile for subjects of the same age, sex, and race/ethnicity. -Moderate atherosclerotic coronary disease in te proximal LAD segment, with possible evidence of significant flow-limiting atherosclerosis of the coronary arteries. -CAD-RADS 3. Management recommendations per ACC/AHA guidelines*, as clinically appropriate. -Moderate calcification in the ascending and descending thoracic aorta, as well as mild calcification in the aortic valve. *Recommendations: CAD RADS 0: Reassurance. Consider non-atherosclerotic causes of chest pain. CAD RADS 1: Consider non-atherosclerotic causes of chest pain. Consider preventive therapy and risk factor modification. CAD RADS 2: Consider non-atherosclerotic causes of chest pain. Consider preventive therapy and risk factor modification, particularly for patients with nonobstructive plaque in multiple segments. CAD RADS 3: Consider further functional testing. Consider symptom-guided anti-ischemic and preventive pharmacotherapy as well as risk factor modification per published guideline statements. CAD RADS 4A: Consider further functional testing or invasive coronary angiography with revascularization per published guideline statements. Consider symptom-guided anti-ischemic and preventive pharmacotherapy as well as risk factor modification per published guideline statements. CAD RADS 4B: Invasive coronary angiography recommended with revascularization per published guideline statements. Consider symptom-guided anti-ischemic and preventive pharmacotherapy as well as risk factor modification per published guideline statements. CAD RADS 5: Consider invasive angiography and/or viability assessment with revascularization per published guideline statements. Consider symptom-guided anti-ischemic and preventive pharmacotherapy as well as risk factor modification per published guideline statements. CRITICAL RESULT None COMMUNICATION Per this written report The coronary and cardiac findings of this CCTA were reviewed, reported, and signed by Rudy Rascon MD (Tan Room Supervisor) Conclusion Electronically signed by : Leila Rascon MD 07/15/2025 08:34:59
[2025-07-06 10:25] VITALS: BP 164/74; PULSE 63; RESP 18; O2SAT 97
[2025-07-06 10:30] VITALS: BP 122/82; PULSE 68; RESP 18; O2SAT 99
[2025-07-06] MEDS: 0.9 % SODIUM CHLORIDE 50 ML VIAL IV (10:41)
[2025-07-06] MEDS: IOPAMIDOL-370 (76%);100ML BOTTLE 80 ML IV (10:41)
== END 2025-07-06 10:45 | disposition home or self-care (01) ==
PROVIDERS: PCP Nurse Practitioner; Visit Provider Internal Medicine
DX: I25.10 Atherosclerotic heart disease of native coronary artery without angina pectoris (principal); I70.0 Atherosclerosis of aorta
CPT/HCPCS: 75574; 80048; Q9967